=== PATIENT | female | born 1990 ===

== ENCOUNTER 2020-03-26 18:27 | Emergency (ER) | payer MEDICAID, SELFPAY ==
[2020-03-26 19:58] VITALS: BP 135/83; PULSE 60; RESP 16; TEMP 35.8; O2SAT 100; BMI 28.4
--- NOTE | 2020-03-26 21:39 | ED.ABDPAIN ---
HPI - Abdominal Pain General Chief Complaint: Abdominal Pain Stated Complaint: ABDOMINAL PAIN Time Seen by Provider: 03/26/20 21:39 Source: patient Mode of arrival: ambulatory Limitations: no limitations History of Present Illness HPI narrative: umbilical pain started yesterday MD elicited complaint: abdominal pain Onset (ago): day(s) Pain Consistency: constant Severity: moderate Radiation: RLQ Exacerbating factors: eating Associated symptoms: nausea and vomiting Related Data Previous Rx's Medication Instructions Recorded ondansetron HCl [Zofran] 4 mg PO Q8H PRN #10 tab 03/26/20 Allergies Allergy/AdvReac Type Severity Reaction Status Date / Time No Known Allergies Allergy Unverified 02/26/20 19:42 [No Known Allergies*] Review of Systems Constitutional: Reports no additional constitutional complaints Eyes: Reports no additional eye complaints Denies dizziness Cardiovascular: Reports no additional cardiovascular complaints Respiratory: Reports as per HPI Gastrointestinal: Reports no additional gastrointestinal complaints Genitourinary: Reports no additional female genitourinary complaints Musculoskeletal: Reports no additional musculoskeletal complaints Skin/Breast: Denies rash Reports system reviewed and no additional complaints, except as documented, Denies dizziness and Denies Sensory deficit (Neuro) Psychiatric: Denies anxiety Physical Exam Vital Signs: Vital Signs: Vital Signs Temp Pulse Resp BP Pulse Ox 03/26/20 21:40 62 18 131/75 100 03/26/20 19:58 96.4 F L 60 16 135/83 100 Body Mass Index 28.4 Const: General: healthy appearing Nutritional Appearance: average body habitus Orientation/consciousness: oriented to person and patient oriented x3 Limitations: no limitations HENMT: Head: Yes normal to inspection Ears: external ears normal General nose exam: Normal external nose present Mouth: Normal oral and palatal mucosa present and oropharynx normal Throat: Yes posterior oropharynx normal Eyes: General: appearance normal, both eyes and all related structures Neck: Other: supple Neck: Yes normal visual inspection Chest: Chest palpation & inspection: normal inspection of the chest Resp: Auscultation: clear to auscultation bilaterally Cardio: Jugular venous distension: no JVD Rate: regular rate Rhythm: regular rhythm Heart sounds: S1 normal heart sound present and S2 normal heart sound present GI: Other: small reducible umbilical hernia otherwise normal exam Inspection: Yes normal to inspection Palpation (GI): Soft to palpation, nontender and No hepatosplenomegaly present Auscultation: normal bowel sounds : General: Yes no CVA tenderness Back/Spine/Pelvis: Back: no CVA tenderness Skin: General skin exam: no rashes or lesions noted Neuro: General: oriented to person and patient oriented x3 Cranial nerves: Yes CN's II-XII intact bilaterally Motor exam (neuro): 5/5 motor strength present throughout Sensory Exam: No Sensory deficit (Neuro) Extrem: General: Yes normal to inspection Psych: Appearance: grossly normal Course Course Course Narrative: bloods and urine normal, repeat abdominal exam nontender, will dc on zofran for N/v MDM - Abdominal Pain MDM Narrative Medical decision making narrative: considered , appendicitis, gastroenteritis, incarcerated hernia Lab Data Result diagrams: 03/26/20 21:50 03/26/20 21:50 Labs: Lab Results 03/26/20 03/26/20 03/26/20 Range/Units 21:49 21:49 21:50 WBC 9.0 (4.8-10.8) X10*3/uL RBC 4.64 (4.20-5.50) X10*6/uL Hgb 13.4 (12.0-16.0) g/dl Hct 40.2 (37-47) % MCV 86.6 (80-98) fL MCH 28.9 (27.0-33.0) pg MCHC 33.3 (31.0-35.0) g/dl RDW 12.5 (11.0-16.0) % Plt Count 296 (160-400) X10*3/uL MPV 10.6 (9.4-12.3) fL Immature Gran % (Auto) 0.3 (0.0-0.4) % Neut % (Auto) 57.5 (45-73) % Lymph % (Auto) 33.8 (20-40) % [place] % (Auto) 5.6 (2-11) % Eos % (Auto) 2.4 (0-4) % Baso % (Auto) 0.4 (0-2) % Lymph # (Auto) 3.1 (1.2-4.9) X10*3/uL [place] # (Auto) 0.5 (0.1-1.2) X10*3/uL Eos # (Auto) 0.2 (0.0-0.4) X10*3/uL Baso # (Auto) 0.0 (0.0-0.2) X10*3/uL Abs Immat Gran (auto) 0.03 (0.00-0.03) X10*3/uL Absolute Neuts (auto) 5.2 (2.0-8.3) X10*3/uL Absolute Nucleated RBC 0.000 (0.0-0.012) X10*3/uL Nucleated RBC % (auto) 0.0 (0.0-0.2) /100WBC Sodium (135-145) mmol/L Potassium (3.3-5.1) mmol/l Chloride (96-108) mmol/L Carbon Dioxide (22-29) mmol/L Anion Gap (12-20) BUN (9-16) mg/dL Creatinine (0.5-1.4) mg/dL Estim Creat Clear Calc Estimated GFR Random Glucose (60-115) mg/dL Calcium (8.4-10.2) mg/dL Total Bilirubin (0.0-1.0) mg/dL Direct Bilirubin (0.0-0.5) mg/dL AST (5-31) U/L ALT (0-31) U/L Alkaline Phosphatase (39-117) U/L Total Protein (6.5-8.0) g/dL Albumin (3.5-5.0) g/dL Lipase 32 (8-78) U/L Urine Color YELLOW Urine Appearance CLEAR Urine pH 7.0 (5.0-8.0) Ur Specific [place] 1.015 (1.005-1.025) Urine Protein NEG (NEG-TRACE) MG/DL Urine Glucose (UA) NEG (NEG) MG/DL Urine Ketones NEG (NEG) MG/DL Urine Blood NEG (NEG) Urine Nitrite NEG (NEG) Ur Leukocyte Esterase NEG (NEG) Urine Test (NEGATIVE) 03/26/20 03/26/20 Range/Units 21:50 21:50 WBC (4.8-10.8) X10*3/uL RBC (4.20-5.50) X10*6/uL Hgb (12.0-16.0) g/dl Hct (37-47) % MCV (80-98) fL MCH (27.0-33.0) pg MCHC (31.0-35.0) g/dl RDW (11.0-16.0) % Plt Count (160-400) X10*3/uL MPV (9.4-12.3) fL Immature Gran % (Auto) (0.0-0.4) % Neut % (Auto) (45-73) % Lymph % (Auto) (20-40) % [place] % (Auto) (2-11) % Eos % (Auto) (0-4) % Baso % (Auto) (0-2) % Lymph # (Auto) (1.2-4.9) X10*3/uL [place] # (Auto) (0.1-1.2) X10*3/uL Eos # (Auto) (0.0-0.4) X10*3/uL Baso # (Auto) (0.0-0.2) X10*3/uL Abs Immat Gran (auto) (0.00-0.03) X10*3/uL Absolute Neuts (auto) (2.0-8.3) X10*3/uL Absolute Nucleated RBC (0.0-0.012) X10*3/uL Nucleated RBC % (auto) (0.0-0.2) /100WBC Sodium 140 (135-145) mmol/L Potassium 4.2 (3.3-5.1) mmol/l Chloride 107 (96-108) mmol/L Carbon Dioxide 25 (22-29) mmol/L Anion Gap 12 (12-20) BUN 13 (9-16) mg/dL Creatinine 0.70 (0.5-1.4) mg/dL Estim Creat Clear Calc 110.3 Estimated GFR > 60 Random Glucose 79 (60-115) mg/dL Calcium 10.1 (8.4-10.2) mg/dL Total Bilirubin 0.2 (0.0-1.0) mg/dL Direct Bilirubin < 0.2 (0.0-0.5) mg/dL AST 17 (5-31) U/L ALT 15 (0-31) U/L Alkaline Phosphatase 82 (39-117) U/L Total Protein 7.0 (6.5-8.0) g/dL Albumin 4.3 (3.5-5.0) g/dL Lipase (8-78) U/L Urine Color Urine Appearance Urine pH (5.0-8.0) Ur Specific [place] (1.005-1.025) Urine Protein (NEG-TRACE) MG/DL Urine Glucose (UA) (NEG) MG/DL Urine Ketones (NEG) MG/DL Urine Blood (NEG) Urine Nitrite (NEG) Ur Leukocyte Esterase (NEG) Urine Test NEGATIVE (NEGATIVE) Discharge Plan Discharge Clinical Impression: Gastroenteritis Nausea & vomiting Qualifiers: Vomiting type: unspecified Vomiting Intractability: unspecified Qualified Code(s): R11.2 - Nausea with vomiting, unspecified Patient Disposition: Home, Self-Care Instructions: Acute Nausea and Vomiting (ED), Abdominal Pain (ED) Prescriptions: New ondansetron HCl [Zofran] 4 mg tablet 4 mg PO Q8H PRN (Reason: nausea and vomiting) Qty: 10 RF: 0 Referrals: Mervat Martin MEDICAL RADIATION THERAPIST [Nurse Practitioner] - 2 days Interventions: Admission Worksheet (ED) Last Done: 03/26/20 22:03 [facility] Social History Social History Alcohol intake: never Smoking Status: Never smoker Advance Directives: No Advance Directives Information Provided: Yes
[2020-03-26 21:40] VITALS: BP 131/75; PULSE 62; RESP 18; O2SAT 100
--- NOTE | 2020-03-26 21:41 | PC.NURSE ---
pt report diffuse abd pain worse after eating. vomiting, denies diarrhea. skin pwd, respirations even unlabored. md at bedside for primary eval.
[2020-03-26] MEDS: 0.9 % Sodium Chloride 500 ML 1000 ML IV (21:56)
[2020-03-26] MEDS: ondansetron HCL 4 MG/2 ML VIAL IVPUSH (21:57)
--- NOTE | 2020-03-26 21:58 | PC.NURSE ---
IV ACCESS OBTAINED, SPECIMENS SENT TO LAB FOR PROCESSING. IVF HUNG AND INFUSING WITHOUT DIFFICULTY. MEDICATED PER MAR. AWAITING RESULTS. AWARE OF PLAN OF CARE.
[2020-03-26 22:08] LABS: MANUAL DIFF FLAG NO
[2020-03-26 22:09] LABS: Basophils Percent Auto 0.4 % (0-2); Eosinophils Absolute Auto 0.2 X10*3/uL (0.0-0.4); Eosinophils Percent Auto 2.4 % (0-4); Hematocrit 40.2 % (37-47); Hemoglobin 13.4 g/dl (12.0-16.0); Imm Gran Abs Auto 0.03 X10*3/uL (0.00-0.03); Imm Gran Pct Auto 0.3 % (0.0-0.4); Lymphocytes Absolute Auto 3.1 X10*3/uL (1.2-4.9); Lymphocytes Percent Auto 33.8 % (20-40); Mean Corpuscular HGB Conc 33.3 g/dl (31.0-35.0); Mean Corpuscular Hemoglobin 28.9 pg (27.0-33.0); Mean Corpuscular Volume 86.6 fL (80-98); Mean Platelet Volume 10.6 fL (9.4-12.3); Monocytes Absolute Auto 0.5 X10*3/uL (0.1-1.2); Monocytes Percent Auto 5.6 % (2-11); Neutrophils Absolute Auto 5.2 X10*3/uL (2.0-8.3); Neutrophils Percent Auto 57.5 % (45-73); Platelet Count 296 X10*3/uL (160-400); Red Blood Count 4.64 X10*6/uL (4.20-5.50); Red Cell Distribution Width 12.5 % (11.0-16.0)
[2020-03-26 22:24] LABS: Glucose Urine UA NEG (NEG); Leukocyte Esterase Urine NEG (NEG); Nitrite Urine NEG (NEG); Specific Gravity - Urine 1.015 (1.005-1.025); Urine Blood NEG (NEG); Urine Ketones NEG (NEG); Urine Protein NEG (NEG-TRACE)
[2020-03-26 22:31] LABS: Appearance Urine CLEAR; Color Urine YELLOW
[2020-03-26 22:34] LABS: UPreg QC Valid YES; Urine Pregnancy NEGATIVE (NEGATIVE)
[2020-03-26 22:37] LABS: Lipase 32 U/L (8-78)
[2020-03-26 22:38] LABS: Alanine Aminotransferase 15 U/L (0-31); Albumin Level 4.3 g/dL (3.5-5.0); Alkaline Phosphatase 82 U/L (39-117); Anion Gap 12 (12-20); Aspartate Amino Transferase 17 U/L (5-31); Bilirubin Direct < 0.2 mg/dL (0.0-0.5); Bilirubin Total 0.2 mg/dL (0.0-1.0); Blood Urea Nitrogen 13 mg/dL (9-16); Calcium 10.1 mg/dL (8.4-10.2); Carbon Dioxide 25 mmol/L (22-29); Chloride 107 mmol/L (96-108); Creatinine Clr Calc Pharmacy 110.3; Estimated Glomerular Filt Rate > 60; Glucose Random 79 mg/dL (60-115); Potassium 4.2 mmol/l (3.3-5.1); Sodium 140 mmol/L (135-145)
== END 2020-03-27 00:29 | disposition home or self-care (01) ==
PROVIDERS: Emergency Provider Emergency Medicine
DX: K52.9 Noninfective gastroenteritis and colitis, unspecified (principal); R11.2 Nausea with vomiting, unspecified; Z79.899 Other long term (current) drug therapy
CPT/HCPCS: 36415; 80048; 80076; 81003; 81025; 83690; 85025; 96361; 96374; 99284; J2405

== ENCOUNTER 2020-03-28 12:30 | Emergency (ER) | payer MEDICAID, SELFPAY ==
[2020-03-28 12:52] VITALS: BP 114/68; PULSE 76; RESP 16; TEMP 37.1; O2SAT 100; BMI 28.3
[2020-03-28 12:54] VITALS: BP 114/68; PULSE 70; RESP 16; TEMP 37.1; O2SAT 100
--- NOTE | 2020-03-28 13:10 | ED.ABDPAIN ---
HPI - Abdominal Pain General Chief Complaint: Abdominal Pain Stated Complaint: abd pain Time Seen by Provider: 03/28/20 12:57 Source: patient Mode of arrival: ambulatory Limitations: no limitations History of Present Illness HPI narrative: 30 yo female with past medical history of anxiety, asthma here here with abdominal pain x 4 days. This morning one episode of vomiting this morning. Seen here 2 days ago. Had labs, UA-unremarkable. Diagnosed 2 days ago with gastroenteritis and sent home. Continued pain since. No diarrhea, urinary symptoms, fevers/chills, vaginal discharge. MD elicited complaint: abdominal pain Onset (ago): day(s) Pain Consistency: constant Location: LUQ, RUQ and LLQ Severity: moderate Quality: stabbing Associated symptoms: nausea and vomiting Related Data Previous Rx's Medication Instructions Recorded ondansetron HCl [Zofran] 4 mg PO Q8H PRN #10 tab 03/26/20 omeprazole 40 mg PO DAILY #20 cap 03/28/20 sucralfate [Carafate] 1 g PO .ACHS #20 tab 03/28/20 Allergies Allergy/AdvReac Type Severity Reaction Status Date / Time Iodinated Contrast Media Allergy Swelling Verified 03/28/20 13:11 Review of Systems Review of Systems Yes all other systems are reviewed and are negative Constitutional: Reports no additional constitutional complaints, Denies body ache(s), Denies chills, Denies fever(s), Denies headache(s) and Denies weakness Eyes: Reports no additional eye complaints and Denies change in vision Reports system reviewed and no additional complaints, except as documented, Denies dizziness, Denies headache(s), Denies nasal congestion, Denies nasal discharge and Denies neck pain Cardiovascular: Reports no additional cardiovascular complaints, Denies chest pain, Denies leg edema and Denies dyspnea Respiratory: Reports no additional respiratory complaints, Denies cough and Denies dyspnea Gastrointestinal: Reports no additional gastrointestinal complaints, Reports abdominal pain, Denies diarrhea, Reports nausea and Reports vomiting Genitourinary: Reports no additional female genitourinary complaints and Denies urinary incontinence Musculoskeletal: Reports no additional musculoskeletal complaints, Denies back pain, Denies arthralgias, Denies joint swelling, Denies neck pain, Denies numbness and Denies tingling Skin/Breast: Reports system reviewed and no additional complaints, except as docu and Denies rash Denies Abnormal speech present, Denies dizziness, Denies headache(s), Denies numbness, Denies tingling and Denies weakness Physical Exam Vital Signs: Vital Signs: Vital Signs Temp Pulse Resp BP Pulse Ox 03/28/20 15:34 98.0 F 63 18 113/74 100 03/28/20 12:54 98.7 F 70 16 114/68 100 03/28/20 12:52 98.7 F 76 16 114/68 100 Body Mass Index 28.3 Const: General: cooperative, healthy appearing, comfortable and no acute distress Orientation/consciousness: patient oriented x3 Limitations: no limitations HENMT: Head: Yes normal to inspection Ears: hearing grossly normal bilaterally General nose exam: Normal external nose present Face and sinus: Yes normal facial exam Mouth: Normal oral and palatal mucosa present Throat: Yes posterior oropharynx normal Eyes: General: appearance normal, both eyes and all related structures Pupils: Equal, round and reactive pupils present Neck: Neck: Yes normal visual inspection Chest: Chest palpation & inspection: normal inspection of the chest Resp: Effort & Inspection: normal respiratory effort Auscultation: clear to auscultation bilaterally Cardio: Rate: regular rate Rhythm: regular rhythm Peripheral pulses: Peripheral pulses 2+ throughout GI: Inspection: Yes normal to inspection Palpation (GI): Soft to palpation and Tenderness to palpation present (GI) in the LLQ, in the LUQ and in the RUQ Auscultation: normal bowel sounds Back/Spine/Pelvis: Thoracic/Lumbar Spine: thoracic and lumbar spine normal to inspection Skin: General skin exam: no rashes or lesions noted Neuro: General: patient oriented x3, no focal motor deficits and normal sensation to monofilament Cranial nerves: Yes Equal, round and reactive pupils present Cognition (Neuro): normal cognition Speech: No Abnormal speech present Gait exam (Neuro): Normal gait present Motor exam (neuro): 5/5 motor strength present throughout Extrem: General: Yes normal to inspection Course Course Course Narrative: 30-year-old female here with abdominal pain and 1 episode of vomiting. Seen here 2 days ago and has return for continued pain. On exam she has tenderness over the right upper, left upper and left lower abdomen. Will need labs, UA, urine and CT abdomen and pelvis. 1515- labs unremarkable, UA negative. Urine negative. CT shows mild constipation otherwise unremarkable. The patient received 1 dose of analgesia, antiemetic, ppi and GI cocktail and is feeling much improved. Tolerating p.o.. Maybe viral versus gastritis. reviewed worrisome signs and symptoms and when to return to the emergency department. Comfortable discharge home. MDM - Abdominal Pain MDM Narrative Medical decision making narrative: Considered gastroenteritis, gastritis, cholecystitis, pancreatitis, diverticulitis, appendicitis Overall concern for cholecystitis, pancreatitis, diverticulitis, appendicitis with unremarkable CT. Patient has no focal abdominal pain and is diffusely tender more than 2 quadrants. She has improved after receiving PPI and GI cocktail making this more likely gastritis or gastroenteritis. Medical Records Attestation: I reviewed the patient's medical records. Lab Data Attestation: I reviewed the patient's lab results. Result diagrams: 03/28/20 13:20 03/28/20 13:20 Labs: Lab Results 03/28/20 03/28/20 03/28/20 Range/Units 13:20 13:20 13:20 WBC 7.4 (4.8-10.8) X10*3/uL RBC 4.79 (4.20-5.50) X10*6/uL Hgb 13.8 (12.0-16.0) g/dl Hct 41.8 (37-47) % MCV 87.3 (80-98) fL MCH 28.8 (27.0-33.0) pg MCHC 33.0 (31.0-35.0) g/dl RDW 12.4 (11.0-16.0) % Plt Count 279 (160-400) X10*3/uL MPV 10.2 (9.4-12.3) fL Immature Gran % (Auto) 0.1 (0.0-0.4) % Neut % (Auto) 69.8 (45-73) % Lymph % (Auto) 21.6 (20-40) % [place] % (Auto) 5.5 (2-11) % Eos % (Auto) 2.6 (0-4) % Baso % (Auto) 0.4 (0-2) % Lymph # (Auto) 1.6 (1.2-4.9) X10*3/uL [place] # (Auto) 0.4 (0.1-1.2) X10*3/uL Eos # (Auto) 0.2 (0.0-0.4) X10*3/uL Baso # (Auto) 0.0 (0.0-0.2) X10*3/uL Abs Immat Gran (auto) 0.01 (0.00-0.03) X10*3/uL Absolute Neuts (auto) 5.2 (2.0-8.3) X10*3/uL Absolute Nucleated RBC 0.000 (0.0-0.012) X10*3/uL Nucleated RBC % (auto) 0.0 (0.0-0.2) /100WBC Hold Blue Top SEE NOTE Sodium (135-145) mmol/L Potassium (3.3-5.1) mmol/l Chloride (96-108) mmol/L Carbon Dioxide (22-29) mmol/L Anion Gap (12-20) BUN (9-16) mg/dL Creatinine (0.5-1.4) mg/dL Estim Creat Clear Calc Estimated GFR Random Glucose (60-115) mg/dL Calcium (8.4-10.2) mg/dL Magnesium (1.6-2.6) mg/dL Total Bilirubin (0.0-1.0) mg/dL Direct Bilirubin (0.0-0.5) mg/dL AST (5-31) U/L ALT (0-31) U/L Alkaline Phosphatase (39-117) U/L Total Protein (6.5-8.0) g/dL Albumin (3.5-5.0) g/dL Urine Color YELLOW Urine Appearance CLEAR Urine pH 6.0 (5.0-8.0) Ur Specific [place] 1.025 (1.005-1.025) Urine Protein NEG (NEG-TRACE) MG/DL Urine Glucose (UA) NEG (NEG) MG/DL Urine Ketones 5 (NEG) MG/DL Urine Blood NEG (NEG) Urine Nitrite NEG (NEG) Ur Leukocyte Esterase NEG (NEG) Urine Test NEGATIVE (NEGATIVE) 03/28/20 Range/Units 13:20 WBC (4.8-10.8) X10*3/uL RBC (4.20-5.50) X10*6/uL Hgb (12.0-16.0) g/dl Hct (37-47) % MCV (80-98) fL MCH (27.0-33.0) pg MCHC (31.0-35.0) g/dl RDW (11.0-16.0) % Plt Count (160-400) X10*3/uL MPV (9.4-12.3) fL Immature Gran % (Auto) (0.0-0.4) % Neut % (Auto) (45-73) % Lymph % (Auto) (20-40) % [place] % (Auto) (2-11) % Eos % (Auto) (0-4) % Baso % (Auto) (0-2) % Lymph # (Auto) (1.2-4.9) X10*3/uL [place] # (Auto) (0.1-1.2) X10*3/uL Eos # (Auto) (0.0-0.4) X10*3/uL Baso # (Auto) (0.0-0.2) X10*3/uL Abs Immat Gran (auto) (0.00-0.03) X10*3/uL Absolute Neuts (auto) (2.0-8.3) X10*3/uL Absolute Nucleated RBC (0.0-0.012) X10*3/uL Nucleated RBC % (auto) (0.0-0.2) /100WBC Hold Blue Top Sodium 140 (135-145) mmol/L Potassium 4.0 (3.3-5.1) mmol/l Chloride 105 (96-108) mmol/L Carbon Dioxide 28 (22-29) mmol/L Anion Gap 11 L (12-20) BUN 9 (9-16) mg/dL Creatinine 0.73 (0.5-1.4) mg/dL Estim Creat Clear Calc 105.6 Estimated GFR > 60 Random Glucose 61 (60-115) mg/dL Calcium 9.2 (8.4-10.2) mg/dL Magnesium 1.9 (1.6-2.6) mg/dL Total Bilirubin 0.3 (0.0-1.0) mg/dL Direct Bilirubin 0.2 (0.0-0.5) mg/dL AST 16 (5-31) U/L ALT 16 (0-31) U/L Alkaline Phosphatase 82 (39-117) U/L Total Protein 6.9 (6.5-8.0) g/dL Albumin 4.4 (3.5-5.0) g/dL Urine Color Urine Appearance Urine pH (5.0-8.0) Ur Specific [place] (1.005-1.025) Urine Protein (NEG-TRACE) MG/DL Urine Glucose (UA) (NEG) MG/DL Urine Ketones (NEG) MG/DL Urine Blood (NEG) Urine Nitrite (NEG) Ur Leukocyte Esterase (NEG) Urine Test (NEGATIVE) Imaging Data CT scan - abdomen: Attestation: I personally reviewed and interpreted this imaging study as follows: My impression: Mild constipation otherwise unremarkable Radiologist's impression: EXAMINATION: CT ABDOMEN AND PELVIS WITHOUT CONTRAST CLINICAL INFORMATION: 30-year-old female with abdominal pain and vomiting. COMPARISON: None TECHNIQUE: Multidetector volumetric imaging was performed from the superior aspect of the liver through the pubic symphysis. Sagittal and coronal reformatted images were obtained on the technologist's workstation. Evaluation of solid organs is suboptimal given lack of IV contrast. This CT examination was performed using dose optimization techniques as appropriate, variously including the following: *Automated exposure control *Adjustment of mA and/or kV according to patient size (this includes techniques or standardized protocols for targeted exams where dose is matched to indication/reason for exam; i.e. extremities or head) *Use of iterative reconstruction technique DLP: 553 mGy-cm FINDINGS: Visualized lung bases are well aerated. There is minimal dependent atelectasis. The liver demonstrates normal size, contour and attenuation. There are a few coarse calcifications within the liver. The gallbladder is normal in appearance. The pancreas, spleen and adrenal glands are unremarkable. Small posterior splenule. Symmetrically sized kidneys. No renal calculi or hydronephrosis bilaterally. The stomach is decompressed. Normal caliber loops of small bowel. There is a mild stool burden throughout the entirety of the colon. Normal appendix. Tiny fat-containing umbilical hernia. Nonaneurysmal abdominal aorta. The bladder is relatively decompressed but grossly unremarkable. Unremarkable CT appearance of the uterus. 2.5 cm right adnexal cyst. No inguinal lymphadenopathy. No gross free pelvic fluid. No acute osseous abnormality. IMPRESSION: -No CT evidence for acute abnormality within the abdomen or pelvis. -There is a mild stool burden throughout the colon possibly represent mild constipation. -2.5 cm right adnexal cyst. Discharge Plan Discharge Clinical Impression: Gastritis Qualifiers: Gastritis type: unspecified gastritis Chronicity: acute Gastritis bleeding: without bleeding Qualified Code(s): K29.00 - Acute gastritis without bleeding Patient Disposition: Home, Self-Care Instructions: Gastritis (ED) Additional Instructions: very bland diet Advance diet as tolerated Prescriptions: New omeprazole 40 mg capsule,delayed release(DR/EC) 40 mg PO DAILY Qty: 20 RF: 0 sucralfate [Carafate] 1 gram tablet 1 g PO .ACHS Qty: 20 RF: 0 No Action ondansetron HCl [Zofran] 4 mg tablet 4 mg PO Q8H PRN (Reason: nausea and vomiting) Qty: 10 RF: 0 Referrals: [facility] [Primary Care Provider] - 2 days Interventions: ED Discharge Assessment Last Done: 03/28/20 17:01 Discharge Date/Time: 03/28/20 17:02 [facility] Past Medical History Attestation statement: The following information was validated with the patient. Source: nursing notes reviewed Medical History Anxiety Asthma Migraine Panic attack Social History Social History Alcohol intake: never Smoking Status: Never smoker Use of substances other than those prescribed or required for medical reasons: No Advance Directives: No Advance Directives Information Provided: No
[2020-03-28 13:27] LABS: Basophils Percent Auto 0.4 % (0-2); Eosinophils Absolute Auto 0.2 X10*3/uL (0.0-0.4); Eosinophils Percent Auto 2.6 % (0-4); Hematocrit 41.8 % (37-47); Hemoglobin 13.8 g/dl (12.0-16.0); Imm Gran Abs Auto 0.01 X10*3/uL (0.00-0.03); Imm Gran Pct Auto 0.1 % (0.0-0.4); Lymphocytes Absolute Auto 1.6 X10*3/uL (1.2-4.9); Lymphocytes Percent Auto 21.6 % (20-40); Mean Corpuscular Hemoglobin 28.8 pg (27.0-33.0); Mean Corpuscular Volume 87.3 fL (80-98); Mean Platelet Volume 10.2 fL (9.4-12.3); Monocytes Absolute Auto 0.4 X10*3/uL (0.1-1.2); Monocytes Percent Auto 5.5 % (2-11); Neutrophils Absolute Auto 5.2 X10*3/uL (2.0-8.3); Neutrophils Percent Auto 69.8 % (45-73); Platelet Count 279 X10*3/uL (160-400); Red Blood Count 4.79 X10*6/uL (4.20-5.50); Red Cell Distribution Width 12.4 % (11.0-16.0); White Blood Count 7.4 X10*3/uL (4.8-10.8)
[2020-03-28 13:28] LABS: MANUAL DIFF FLAG NO
[2020-03-28 13:35] LABS: Glucose Urine UA NEG (NEG); Leukocyte Esterase Urine NEG (NEG); Nitrite Urine NEG (NEG); Specific Gravity - Urine 1.025 (1.005-1.025); Urine Blood NEG (NEG); Urine Ketones 5 MG/DL (NEG); Urine Protein NEG (NEG-TRACE)
[2020-03-28 13:37] LABS: Appearance Urine CLEAR; Color Urine YELLOW; UPreg QC Valid YES; Urine Pregnancy NEGATIVE (NEGATIVE)
[2020-03-28 14:05] LABS: Alanine Aminotransferase 16 U/L (0-31); Albumin Level 4.4 g/dL (3.5-5.0); Alkaline Phosphatase 82 U/L (39-117); Aspartate Amino Transferase 16 U/L (5-31); Bilirubin Direct 0.2 mg/dL (0.0-0.5); Bilirubin Total 0.3 mg/dL (0.0-1.0); Blood Urea Nitrogen 9 mg/dL (9-16); Calcium 9.2 mg/dL (8.4-10.2); Creatinine Clr Calc Pharmacy 105.6; Estimated Glomerular Filt Rate > 60; Glucose Random 61 mg/dL (60-115); Magnesium 1.9 mg/dL (1.6-2.6); Total Protein 6.9 g/dL (6.5-8.0)
[2020-03-28 14:18] LABS: Anion Gap 11 (12-20); Carbon Dioxide 28 mmol/L (22-29); Chloride 105 mmol/L (96-108); Sodium 140 mmol/L (135-145)
[2020-03-28 15:34] VITALS: BP 113/74; PULSE 63; RESP 18; TEMP 36.7; O2SAT 100
[2020-03-28] MEDS: Lidocaine HCl Viscous 2 % 15 ML SOLUTION MUCOUS MEM (15:36)
[2020-03-28] MEDS: Famotidine/PF 20 MG/2 ML VIAL IVPUSH (15:36)
[2020-03-28] MEDS: Magnesium Hydrox/Alum Hydrox 30 ML ORAL.SUSP PO (15:36)
== END 2020-03-28 17:02 | disposition home or self-care (01) ==
PROVIDERS: Nurse Practitioner Family; Emergency Provider Emergency Medicine
DX: K29.70 Gastritis, unspecified, without bleeding (principal)
CPT/HCPCS: 36415; 74176; 80048; 80076; 81003; 81025; 83735; 85025; 96374; 99284

== ENCOUNTER 2020-09-28 13:17 | Emergency (ER) | payer MEDICAID, SELFPAY ==
--- NOTE | ~2020-09-28 | XR_ITS ---
EXAMINATION: XR CHEST CLINICAL INFORMATION: Chest pain. COMPARISON: None TECHNIQUE: Frontal view of the chest was obtained. FINDINGS: The lungs are clear. The cardiomediastinal silhouette is normal in size. There is no pleural effusion or pneumothorax. No acute osseous abnormality. XR/XR chest 1V IMPRESSION: No acute cardiopulmonary findings.
[2020-09-28 13:44] VITALS: BP 133/88; PULSE 82; RESP 18; TEMP 36.7; O2SAT 100; BMI 26.6
--- NOTE | 2020-09-28 13:45 | ECG_ITS ---
Test Reason : ARRHYTHMIA Blood Pressure : / mmHG Vent. Rate : 067 BPM Atrial Rate : 067 BPM P-R Int : 118 ms QRS Dur : 088 ms QT Int : 408 ms P-R-T Axes : 074 045 059 degrees QTc Int : 431 ms Normal sinus rhythm Normal ECG No previous ECGs available Referred By: Mickie Macias Electronically Signed By:Shahzad Coleman
--- NOTE | 2020-09-28 13:46 | ED.GENADULT ---
HPI - General Adult General Chief complaint: Arrhythmia/Palpitations <CHACORTA Patel - Last Filed: 09/28/20 13:49> Stated complaint: PALPATIONS PAIN DOWN R ARM <CHACORTA Patel - Last Filed: 09/28/20 13:49> Time Seen by Provider: 09/28/20 13:44 <CHACORTA Patel - Last Filed: 09/28/20 13:49> Source: patient <Kanchan Barrow DO - Last Filed: 09/28/20 16:20> Mode of arrival: ambulatory <Kanchan Barrow DO - Last Filed: 09/28/20 16:20> Limitations: no limitations <Kanchan Barrow DO - Last Filed: 09/28/20 16:20> History of Present Illness HPI narrative: palpitations 2 weeks on and off no exacerbating symptoms, no associated symptoms at rest or exertion, developed reproduceable L CWP and arm pain this AM at 8am worse with mvoements, no OCPs <Kanchan Barrow DO - Last Filed: 09/28/20 16:20> Onset (ago): week(s) (2) <Kanchan Barrow DO - Last Filed: 09/28/20 16:20> Location: chest <Kanchan Barrow DO - Last Filed: 09/28/20 16:20> Severity: moderate <Kanchan Barrow DO - Last Filed: 09/28/20 16:20> Quality: aching <Kanchan aBrrow DO - Last Filed: 09/28/20 16:20> Pain Consistency: constant <Kanchan Barrow DO - Last Filed: 09/28/20 16:20> Relieving factors: none <Kanchan Barrow DO - Last Filed: 09/28/20 16:20> Exacerbating factors: movement <Kanchan Barrow DO - Last Filed: 09/28/20 16:20> Associated symptoms: other (palpitations) <Kanchan Barrow DO - Last Filed: 09/28/20 16:20> Treatments prior to arrival: none <Kanchan Barrow DO - Last Filed: 09/28/20 16:20> Related Data Home medications: Previous Rx's Medication Instructions Recorded ondansetron HCl [Zofran] 4 mg PO Q8H PRN #10 tab 03/26/20 omeprazole 40 mg PO DAILY #20 cap 03/28/20 sucralfate [Carafate] 1 g PO .ACHS #20 tab 03/28/20 cyclobenzaprine 10 mg PO TID PRN #14 tab 09/28/20 <CHACORTA Patel - Last Filed: 09/28/20 13:49> Allergies/adverse reactions: Allergies Allergy/AdvReac Type Severity Reaction Status Date / Time Iodinated Contrast Media Allergy Swelling Verified 03/28/20 13:11 <CHACORTA Patel - Last Filed: 09/28/20 13:49> Review of Systems Review of Systems: Constitutional : No Weight loss, No Fever, No Chills ENT/Mouth : No sore throat, No Rhinorrhea Eyes: No Eye Pain, No Swelling Cardiovascular : pos Chest Pain, no SOB, no Dyspnea on Exertion, No Orthopnea, No Edema, No Palpitations Respiratory : No Cough, No Sputum Gastrointestinal : no Nausea, No Vomiting, No Diarrhea, No abdominal Pain, No Hematochezia, No Melena Genitourinary : No Dysuria, No Urinary Frequency Musculoskeletal : No joint pain, No Myalgias, No Joint Swelling Skin : No Skin Lesions, No rash Neuro : No Weakness, No Numbness, No Dizziness, No Headache Psych : No Anxiety/Panic, No Depression Heme/Lymph: No Bruising, No Lymphadenopathy Endocrine : No Polyuria, No Polydipsia All other systems reviewed and are negative <Kanchan Barrow DO - Last Filed: 09/28/20 16:20> [facility] Past Medical History Medical History: Medical History Anxiety Asthma Migraine Panic attack <CHACORTA Patel - Last Filed: 09/28/20 13:49> Social History Social History: Social History Alcohol intake: never Smoking Status: Never smoker Advance Directives: No Advance Directives Information Provided: No <CHACORTA Patel Last Filed: 09/28/20 13:49> Physical Exam Vital Signs: Vital Signs: Last Vital Signs Temp 98.1 F 09/28/20 13:44 Pulse 82 04/20/21 13:44 Resp 18 09/28/20 13:44 BP 133/88 09/28/20 13:44 Pulse Ox 100 09/28/20 13:44 Body Mass Index 26.6 <CHACORTA Patel - Last Filed: 09/28/20 13:49> Vital Signs: Last Vital Signs Temp 98.1 F 09/28/20 13:44 Pulse 82 09/28/20 13:44 Resp 18 09/28/20 13:44 BP 133/88 09/28/20 13:44 Pulse Ox 100 09/28/20 13:44 Body Mass Index 26.6 <Kanchan Barrow DO - Last Filed: 09/28/20 16:20> Appearance: Alert. Oriented X3. No acute distress. Eyes: Pupils equal, round and reactive to light. ENT: Pharynx normal. Neck: Normal inspection. Neck supple. CVS: Normal heart rate and rhythm. Pulses normal. Chest: ttp along L lateral wall of chest and LUE distal NV intact Respiratory: No respiratory distress. Breath sounds normal. Abdomen: Soft and nontender. Skin: Skin warm and dry. Normal skin color. Normal skin turgor. Extremities: No lower extremity edema. No calf ttp Neuro: Oriented X 3. No motor deficit. No sensory deficit. <Kanchan Barrow DO - Last Filed: 09/28/20 16:20> Course Course Course Narrative: Rapid medical exam: 30 y/o female with history of anxiety, panic attacks, anemia who presents to the ED with 1 week of palpitations that occur mostly at night when she is laying down. Episodes lasting up to 4 hours. SOB and chest pain when it occurs. Feels different than panic attacks. Tried hydroxyzine and meditation with no improvement. Also reports 3 hours of left sided neck and arm pain. No trauma. VS are normal - no palpitations at this time. Will get EKG, CXR and basic lab workup. <CHACORTA Patel - Last Filed: 09/28/20 13:49> Medical Decision Making MDM Narrative Medical decision making narrative: 30 yo female with anxiety here with CWP since this AM no associated symptoms no ACS risk factors, PERC negative, already had normal CXR, negative troponin, nonischemic EKG seems MSK in nature - start on flexeril and refer to PCP <Kanchan Barrow DO - Last Filed: 09/28/20 16:20> Lab Data Result diagrams: : 09/28/20 14:32 09/28/20 14:32 <CHACORTA Patel - Last Filed: 09/28/20 13:49> Labs: Lab Results 09/28/20 09/28/20 09/28/20 Range/Units 14:32 14:32 14:32 WBC 7.2 (4.8-10.8) X10*3/uL RBC 4.98 (4.20-5.50) X10*6/uL Hgb 13.8 (12.0-16.0) g/dl Hct 42.4 (37-47) % MCV 85.1 (80-98) fL MCH 27.7 (27.0-33.0) pg MCHC 32.5 (31.0-35.0) g/dl RDW 13.0 (11.0-16.0) % Plt Count 305 (160-400) X10*3/uL MPV 10.4 (9.4-12.3) fL Immature Gran % (Auto) 0.3 (0.0-0.4) % Neut % (Auto) 61.2 (45-73) % Lymph % (Auto) 28.3 (20-40) % [place] % (Auto) 7.0 (2-11) % Eos % (Auto) 2.8 (0-4) % Baso % (Auto) 0.4 (0-2) % Lymph # (Auto) 2.1 (1.2-4.9) X10*3/uL [place] # (Auto) 0.5 (0.1-1.2) X10*3/uL Eos # (Auto) 0.2 (0.0-0.4) X10*3/uL Baso # (Auto) 0.0 (0.0-0.2) X10*3/uL Abs Immat Gran (auto) 0.02 (0.00-0.03) X10*3/uL Absolute Neuts (auto) 4.4 (2.0-8.3) X10*3/uL Absolute Nucleated RBC 0.000 (0.0-0.012) X10*3/uL Nucleated RBC % (auto) 0.0 (0.0-0.2) /100WBC Hold Blue Top SEE NOTE Sodium 140 (135-145) mmol/L Potassium 4.2 (3.3-5.1) mmol/L Chloride 105 (96-108) mmol/L Carbon Dioxide 26 (22-29) mmol/L Anion Gap 13 (12-20) BUN 9 (9-16) mg/dL Creatinine 0.70 (0.5-1.4) mg/dL Estim Creat Clear Calc 115.1 Estimated GFR > 60 Random Glucose 90 D (60-115) mg/dL Calcium 9.1 (8.4-10.2) mg/dL Magnesium (1.6-2.6) mg/dL Total Bilirubin 0.5 (0.0-1.0) mg/dL Direct Bilirubin < 0.2 (0.0-0.5) mg/dL AST 18 (5-31) U/L ALT 19 (0-31) U/L Alkaline Phosphatase 89 (39-117) U/L Troponin I High Sens (<3.5-17.0) ng/L Total Protein 7.4 (6.5-8.0) g/dL Albumin 4.4 (3.5-5.0) g/dL TSH (0.32-4.0) uIU/mL 09/28/20 09/28/20 Range/Units 14:32 14:32 WBC (4.8-10.8) X10*3/uL RBC (4.20-5.50) X10*6/uL Hgb (12.0-16.0) g/dl Hct (37-47) % MCV (80-98) fL MCH (27.0-33.0) pg MCHC (31.0-35.0) g/dl RDW (11.0-16.0) % Plt Count (160-400) X10*3/uL MPV (9.4-12.3) fL Immature Gran % (Auto) (0.0-0.4) % Neut % (Auto) (45-73) % Lymph % (Auto) (20-40) % [place] % (Auto) (2-11) % Eos % (Auto) (0-4) % Baso % (Auto) (0-2) % Lymph # (Auto) (1.2-4.9) X10*3/uL [place] # (Auto) (0.1-1.2) X10*3/uL Eos # (Auto) (0.0-0.4) X10*3/uL Baso # (Auto) (0.0-0.2) X10*3/uL Abs Immat Gran (auto) (0.00-0.03) X10*3/uL Absolute Neuts (auto) (2.0-8.3) X10*3/uL Absolute Nucleated RBC (0.0-0.012) X10*3/uL Nucleated RBC % (auto) (0.0-0.2) /100WBC Hold Blue Top Sodium (135-145) mmol/L Potassium (3.3-5.1) mmol/L Chloride (96-108) mmol/L Carbon Dioxide (22-29) mmol/L Anion Gap (12-20) BUN (9-16) mg/dL Creatinine (0.5-1.4) mg/dL Estim Creat Clear Calc Estimated GFR Random Glucose (60-115) mg/dL Calcium (8.4-10.2) mg/dL Magnesium 2.0 (1.6-2.6) mg/dL Total Bilirubin (0.0-1.0) mg/dL Direct Bilirubin (0.0-0.5) mg/dL AST (5-31) U/L ALT (0-31) U/L Alkaline Phosphatase (39-117) U/L Troponin I High Sens < 3.5 (<3.5-17.0) ng/L Total Protein (6.5-8.0) g/dL Albumin (3.5-5.0) g/dL TSH 1.29 (0.32-4.0) uIU/mL <CHACORTA Patel - Last Filed: 09/28/20 13:49> Lab Results 09/28/20 09/28/20 09/28/20 Range/Units 14:32 14:32 14:32 WBC 7.2 (4.8-10.8) X10*3/uL RBC 4.98 (4.20-5.50) X10*6/uL Hgb 13.8 (12.0-16.0) g/dl Hct 42.4 (37-47) % MCV 85.1 (80-98) fL MCH 27.7 (27.0-33.0) pg MCHC 32.5 (31.0-35.0) g/dl RDW 13.0 (11.0-16.0) % Plt Count 305 (160-400) X10*3/uL MPV 10.4 (9.4-12.3) fL Immature Gran % (Auto) 0.3 (0.0-0.4) % Neut % (Auto) 61.2 (45-73) % Lymph % (Auto) 28.3 (20-40) % [place] % (Auto) 7.0 (2-11) % Eos % (Auto) 2.8 (0-4) % Baso % (Auto) 0.4 (0-2) % Lymph # (Auto) 2.1 (1.2-4.9) X10*3/uL [place] # (Auto) 0.5 (0.1-1.2) X10*3/uL Eos # (Auto) 0.2 (0.0-0.4) X10*3/uL Baso # (Auto) 0.0 (0.0-0.2) X10*3/uL Abs Immat Gran (auto) 0.02 (0.00-0.03) X10*3/uL Absolute Neuts (auto) 4.4 (2.0-8.3) X10*3/uL Absolute Nucleated RBC 0.000 (0.0-0.012) X10*3/uL Nucleated RBC % (auto) 0.0 (0.0-0.2) /100WBC Hold Blue Top SEE NOTE Sodium 140 (135-145) mmol/L Potassium 4.2 (3.3-5.1) mmol/L Chloride 105 (96-108) mmol/L Carbon Dioxide 26 (22-29) mmol/L Anion Gap 13 (12-20) BUN 9 (9-16) mg/dL Creatinine 0.70 (0.5-1.4) mg/dL Estim Creat Clear Calc 115.1 Estimated GFR > 60 Random Glucose 90 D (60-115) mg/dL Calcium 9.1 (8.4-10.2) mg/dL Magnesium (1.6-2.6) mg/dL Total Bilirubin 0.5 (0.0-1.0) mg/dL Direct Bilirubin < 0.2 (0.0-0.5) mg/dL AST 18 (5-31) U/L ALT 19 (0-31) U/L Alkaline Phosphatase 89 (39-117) U/L Troponin I High Sens (<3.5-17.0) ng/L Total Protein 7.4 (6.5-8.0) g/dL Albumin 4.4 (3.5-5.0) g/dL TSH (0.32-4.0) uIU/mL 09/28/20 09/28/20 Range/Units 14:32 14:32 WBC (4.8-10.8) X10*3/uL RBC (4.20-5.50) X10*6/uL Hgb (12.0-16.0) g/dl Hct (37-47) % MCV (80-98) fL MCH (27.0-33.0) pg MCHC (31.0-35.0) g/dl RDW (11.0-16.0) % Plt Count (160-400) X10*3/uL MPV (9.4-12.3) fL Immature Gran % (Auto) (0.0-0.4) % Neut % (Auto) (45-73) % Lymph % (Auto) (20-40) % [place] % (Auto) (2-11) % Eos % (Auto) (0-4) % Baso % (Auto) (0-2) % Lymph # (Auto) (1.2-4.9) X10*3/uL [place] # (Auto) (0.1-1.2) X10*3/uL Eos # (Auto) (0.0-0.4) X10*3/uL Baso # (Auto) (0.0-0.2) X10*3/uL Abs Immat Gran (auto) (0.00-0.03) X10*3/uL Absolute Neuts (auto) (2.0-8.3) X10*3/uL Absolute Nucleated RBC (0.0-0.012) X10*3/uL Nucleated RBC % (auto) (0.0-0.2) /100WBC Hold Blue Top Sodium (135-145) mmol/L Potassium (3.3-5.1) mmol/L Chloride (96-108) mmol/L Carbon Dioxide (22-29) mmol/L Anion Gap (12-20) BUN (9-16) mg/dL Creatinine (0.5-1.4) mg/dL Estim Creat Clear Calc Estimated GFR Random Glucose (60-115) mg/dL Calcium (8.4-10.2) mg/dL Magnesium 2.0 (1.6-2.6) mg/dL Total Bilirubin (0.0-1.0) mg/dL Direct Bilirubin (0.0-0.5) mg/dL AST (5-31) U/L ALT (0-31) U/L Alkaline Phosphatase (39-117) U/L Troponin I High Sens < 3.5 (<3.5-17.0) ng/L Total Protein (6.5-8.0) g/dL Albumin (3.5-5.0) g/dL TSH 1.29 (0.32-4.0) uIU/mL <Kanchan Barrow DO - Last Filed: 09/28/20 16:20> ECG Data Interpretation: Rate: 67 Rhythm: NSR [place]: normal Normal P waves. Normal [place]. Normal QRS complex. ST T wave : normal , no THAI qTC: normal prior studies: no acute ischemia The study has been interpreted contemporaneously by me. . <Kanchan Barrow DO - Last Filed: 09/28/20 16:20> Discharge Plan Discharge Clinical Impression: Palpitations, Acute chest wall pain <CHACORTA Patel - Last Filed: 09/28/20 13:49> Patient Disposition: Home, Self-Care <CHACORTA Patel Last Filed: 09/28/20 13:49> Instructions: Heart Palpitations (ED), Chest Wall Pain (ED) <CHACORTA Patel Last Filed: 09/28/20 13:49> Additional Instructions: return to ED for any worsening symptoms or concerns <CHACORTA Patel Last Filed: 09/28/20 13:49> Prescriptions: New cyclobenzaprine 10 mg tablet 10 mg PO TID PRN (Reason: muscle spasm) Qty: 14 RF: 0 No Action ondansetron HCl [Zofran] 4 mg tablet 4 mg PO Q8H PRN (Reason: nausea and vomiting) Qty: 10 RF: 0 omeprazole 40 mg capsule,delayed release(DR/EC) 40 mg PO DAILY Qty: 20 RF: 0 sucralfate [Carafate] 1 gram tablet 1 g PO .ACHS Qty: 20 RF: 0 <CHACORTA Patel - Last Filed: 09/28/20 13:49> Referrals: [facility] [Primary Care Provider] - 2 days (if not better) <CHACORTA Patel - Last Filed: 09/28/20 13:49>
[2020-09-28 14:38] LABS: MANUAL DIFF FLAG NO
[2020-09-28 14:41] LABS: Basophils Percent Auto 0.4 % (0-2); Eosinophils Absolute Auto 0.2 X10*3/uL (0.0-0.4); Eosinophils Percent Auto 2.8 % (0-4); Hematocrit 42.4 % (37-47); Hemoglobin 13.8 g/dl (12.0-16.0); Imm Gran Abs Auto 0.02 X10*3/uL (0.00-0.03); Imm Gran Pct Auto 0.3 % (0.0-0.4); Lymphocytes Absolute Auto 2.1 X10*3/uL (1.2-4.9); Lymphocytes Percent Auto 28.3 % (20-40); Mean Corpuscular HGB Conc 32.5 g/dl (31.0-35.0); Mean Corpuscular Hemoglobin 27.7 pg (27.0-33.0); Mean Corpuscular Volume 85.1 fL (80-98); Mean Platelet Volume 10.4 fL (9.4-12.3); Monocytes Absolute Auto 0.5 X10*3/uL (0.1-1.2); Neutrophils Absolute Auto 4.4 X10*3/uL (2.0-8.3); Neutrophils Percent Auto 61.2 % (45-73); Platelet Count 305 X10*3/uL (160-400); Red Blood Count 4.98 X10*6/uL (4.20-5.50); White Blood Count 7.2 X10*3/uL (4.8-10.8)
[2020-09-28 15:12] LABS: Alanine Aminotransferase 19 U/L (0-31); Albumin Level 4.4 g/dL (3.5-5.0); Alkaline Phosphatase 89 U/L (39-117); Anion Gap 13 (12-20); Aspartate Amino Transferase 18 U/L (5-31); Bilirubin Direct < 0.2 mg/dL (0.0-0.5); Bilirubin Total 0.5 mg/dL (0.0-1.0); Blood Urea Nitrogen 9 mg/dL (9-16); Calcium 9.1 mg/dL (8.4-10.2); Carbon Dioxide 26 mmol/L (22-29); Chloride 105 mmol/L (96-108); Creatinine Clr Calc Pharmacy 115.1; Estimated Glomerular Filt Rate > 60; Glucose Random 90 mg/dL (60-115); Potassium 4.2 mmol/L (3.3-5.1); Sodium 140 mmol/L (135-145); Total Protein 7.4 g/dL (6.5-8.0)
[2020-09-28 15:16] LABS: Troponin-I High Sensitivity < 3.5 ng/L (<3.5-17.0)
[2020-09-28 15:33] LABS: TSH reflex Free T4 1.29 uIU/mL (0.32-4.0)
[2020-09-28] MEDS: Cyclobenzaprine HCl 10 MG TABLET PO (16:21)
== END 2020-09-28 16:19 | disposition home or self-care (01) ==
PROVIDERS: Physician Assistant; Emergency Provider Emergency Medicine
DX: R00.2 Palpitations (principal); R07.89 Other chest pain
CPT/HCPCS: 36415; 71045; 80048; 80076; 83735; 84443; 84484; 85025; 93005; 99283

== ENCOUNTER 2020-10-29 05:56 | Emergency (ER) | payer MEDICAID, SELFPAY ==
[2020-10-29 06:01] VITALS: BP 148/92; PULSE 87; O2SAT 98
[2020-10-29 06:05] VITALS: BP 121/66; PULSE 68; RESP 15; TEMP 36.3; O2SAT 98; BMI 29.2
--- NOTE | 2020-10-29 06:23 | ED.HA ---
HPI - Headache General Chief Complaint: Headache Stated Complaint: headache Time Seen by Provider: 10/29/20 06:18 Source: patient Mode of arrival: EMS History of Present Illness HPI Narrative: 30-year-old female with history of migraines and currently taking topiramate and sumatriptan with a recent history of medication dosage change of the topiramate approximately 1 month ago by Neurology at [facility]. Patient states that this is her typical onset and progression of migraine and denies any recent fevers, chills. She states that she had call the ambulance because she would be unable to take any oral medications due to her associated nausea and vomiting. Related Data Home Medications Medication Instructions Recorded Confirmed cetirizine 1 tab PO DAILY 10/29/20 10/29/20 cyanocobalamin (vitamin B-12) 1 tab PO DAILY 10/29/20 10/29/20 escitalopram oxalate 1 tab PO DAILY 10/29/20 10/29/20 sennosides [senna] 2 tab PO DAILY 10/29/20 10/29/20 Previous Rx's Medication Instructions Recorded omeprazole 40 mg PO DAILY #20 cap 03/28/20 Allergies Allergy/AdvReac Type Severity Reaction Status Date / Time Iodinated Contrast Media Allergy Swelling Verified 03/28/20 13:11 Review of Systems Review of Systems: Pertinent positives and negatives as stated in the HPI and 10 point review of systems is otherwise negative PMFSH Past Medical History Source: nursing notes reviewed Medical History Anxiety Asthma Migraine Panic attack Social History Social History Alcohol intake: never Smoking Status: Never smoker Use of substances other than those prescribed or required for medical reasons: No Advance Directives: No Advance Directives Information Provided: No Patient : No Physical Exam Vital Signs: Vital Signs: Last Vital Signs Temp 97.4 F 10/29/20 06:05 Pulse 68 10/29/20 06:05 Resp 15 10/29/20 06:05 BP 121/66 10/29/20 06:05 Pulse Ox 98 10/29/20 06:05 Body Mass Index 29.2 VITAL SIGNS: Reviewed. GENERAL: Well developed, well nourished, in no acute distress. HEAD: Normocephalic/atraumatic EYES: PERRLA, EOMI intact without pain, no nystagmus EARS: Ext canals without abnormalitys NOSE: Nares patent bilateral OROPHARYNX: no oral lesions noted, posterior pharynx clear NECK: Supple, no adenopathy LUNGS: Normal breath sounds. No adventitious sounds or accessory muscle use. SpO2<98> CARDIOVASCULAR: Regular rate and rhythm without noted murmurs ABDOMEN: Soft, non-tender, non-distended with bowel sounds. NEUROLOGIC: Alert and oriented x 4. Strength and sensation to light touch were grossly intact x 4. Course Course Course Narrative: 30-year-old female with history and clinical presentation consistent with normal course of migraine flare without concerning neurological deficits to suggest more serious complications. Patient will be provided with migraine cocktail and re-evaluated. Signed out to Dr Brown. Discharge Plan Discharge Clinical Impression: Migraine Patient Disposition: Home, Self-Care Instructions: Migraine Headache (ED) Additional Instructions: Resume your home medication as prescribed. Follow-up with your neurologist regarding your breakthrough migraine. Return to the ER for any acute worsening of your symptoms. Prescriptions: No Action sennosides [senna] 8.6 mg tablet 2 tab PO DAILY RF: 0 cetirizine 10 mg tablet 1 tab PO DAILY RF: 0 cyanocobalamin (vitamin B-12) 1,000 mcg tablet 1 tab PO DAILY RF: 0 escitalopram oxalate 10 mg tablet 1 tab PO DAILY RF: 0 omeprazole 40 mg capsule,delayed release(DR/EC) 40 mg PO DAILY Qty: 20 RF: 0 Referrals: [facility] [Primary Care Provider] - 2 days
[2020-10-29] MEDS: ondansetron HCL 4 MG/2 ML VIAL IVPUSH (06:45)
[2020-10-29] MEDS: 0.9 % Sodium Chloride 1,000 ML 999 ML IV (06:45)
[2020-10-29] MEDS: Metoclopramide HCl 10 MG/2 ML VIAL IVPUSH (06:45)
[2020-10-29] MEDS: Ketorolac Tromethamine 15 MG/ML VIAL IVPUSH (06:46)
[2020-10-29] MEDS: diphenhydrAMINE HCL 50 MG/ML VIAL 25 MG IVPUSH (06:46)
[2020-10-29] MEDS: Acetaminophen 325 MG TABLET 975 MG PO (06:47)
== END 2020-10-29 10:12 | disposition home or self-care (01) ==
PROVIDERS: Emergency Provider Student in an Organized Health Care Education/Training Program
DX: G43.909 Migraine, unspecified, not intractable, without status migrainosus (principal); Z79.899 Other long term (current) drug therapy
CPT/HCPCS: 96365; 96372; 96375; 99284; J1200; J1885; J2405; J2765

== ENCOUNTER 2020-11-30 12:17 | Emergency (ER) | payer MEDICAID, SELFPAY ==
--- NOTE | ~2020-11-30 | XR_ITS ---
EXAMINATION: XR CHEST CLINICAL INFORMATION: Shortness of breath and chest pain COMPARISON: Previous chest x-ray September 2020 TECHNIQUE: Frontal view of the chest was obtained. FINDINGS: The cardiac and mediastinal contours are normal. The lungs are clear. There is no pleural effusion or pneumothorax. There is curvature of the lower thoracic and upper lumbar spine to the left. Bony structures are otherwise unremarkable. XR/XR chest 1V IMPRESSION: No evidence for acute disease in the chest.
[2020-11-30 12:40] VITALS: BP 127/63; PULSE 55; RESP 20; TEMP 36.4; O2SAT 98; BMI 28.3
--- NOTE | 2020-11-30 12:59 | ECG_ITS ---
Test Reason : SIEZURE Blood Pressure : / mmHG Vent. Rate : 077 BPM Atrial Rate : 077 BPM P-R Int : 118 ms QRS Dur : 094 ms QT Int : 448 ms P-R-T Axes : 070 047 054 degrees QTc Int : 506 ms Sinus rhythm with frequent Premature ventricular complexes Nonspecific T wave abnormality Prolonged QT Abnormal ECG When compared with ECG of 28-SEP-2020 16:07, Premature ventricular complexes are now Present Nonspecific T wave abnormality now evident in Anterior leads QT has lengthened Referred By: Mickie Macias Electronically Signed By:Shahzad Coleman
--- NOTE | 2020-11-30 13:23 | ED_ITS ---
HPI - Syncope General Chief Complaint: Syncope Stated Complaint: SEIZURE @ [facility],POST ICTAL PER EMS Time Seen by Provider: 11/30/20 12:19 Source: patient and EMS Mode of arrival: EMS Limitations: no limitations History of Present Illness HPI narrative: 30 y/o female with history of asthma, migraines, anxiety, seaso nal allergies presents to the ER via EMS after she had a syncopal event at [employer] earlier today. She reports going to her son's graduation event this morning and then they went into her [employer] afterward. 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 This was associated with chest pains, SOB and tingling and numbness in her whole body. She has been having palpitations on/off for the last 1 month, had unremarkable workup with her PCP at [facility]. She was feeling unwell so sat down. They took her BP and it was 130/90s. She felt tingling and twitching in both hands and her left eye. She was breathing rapidly. She was sitting down when she passed out and lost consciousness. She states the next thing she knew she was rolling into the ER on a stretcher. Family at the bedside who denies any traumatic injury, no tonic clonic seizure activity but twitching of her hands/fingers. No incontinence or tongue biting. Denies substance use. MD complaint: loss of consciousness and felt faint Onset (ago): hour(s) -: minutes(s) Description of event: post-event confusion and focal shaking Prodromal symptoms: chest pain, palpitations and shortness of breath Witnessed: Yes - by Bystander Context: at rest Injuries sustained associated with event: none Current symptoms: chest pain, shortness of breath and other (palpitations) Treatments prior to arrival: none Related Data Home Medications Medication Instructions Recorded Confirmed cetirizine 1 tab PO DAILY 10/29/20 10/29/20 cyanocobalamin (vitamin B-12) 1 tab PO DAILY 10/29/20 10/29/20 escitalopram oxalate 1 tab PO DAILY 10/29/20 10/29/20 sennosides [senna] 2 tab PO DAILY 10/29/20 10/29/20 Previous Rx's Medication Instructions Recorded omeprazole 40 mg PO DAILY #20 cap 03/28/20 Allergies Allergy/AdvReac Type Severity Reaction Status Date / Time Iodinated Contrast Media Allergy Swelling Verified 03/28/20 13:11 Review of Systems Review of Systems: Constitutional: No Fever, No Chills ENT/Mouth: No sore throat, No Rhinorrhea, No Swallowing Difficulty Eyes: No Eye Pain, No Swelling, No Redness, +eye twitching Cardiovascular: + Chest Pain, + SOB, No Orthopnea, No Edema Respiratory: No Cough, No Sputum, No Wheezing, No dyspnea Gastrointestinal: No Nausea, No Vomiting, No Diarrhea, No abdominal Pain, No Hematochezia, No Melena Genitourinary: No Dysuria, No Urinary Frequency, No Hematuria Musculoskeletal: No joint pain, No Myalgias Skin: No Skin Lesions, No rash Neuro: + Weakness, + Numbness, + Dizziness, + Headache Psych: + Anxiety/Panic, No Depression Heme/Lymph: No Bruising, No Lymphadenopathy Endocrine: No Polyuria, No Polydipsia PMFSH Past Medical History Attestation statement: The following information was validated with the patient. Medical History Anxiety Asthma Migraine Panic attack Social History Social History Alcohol intake: never Physical Exam Vital Signs: Vital Signs: Last Vital Signs Temp 97.6 F 11/30/20 12:40 Pulse 80 11/30/20 14:24 Resp 18 11/30/20 14:24 BP 130/79 11/30/20 14:24 Pulse Ox 100 11/30/20 14:24 Body Mass Index 28.3 Appearance: Alert. Oriented X3. No acute distress. Eyes: Pupils equal, round and reactive to light. ENT: Pharynx normal. Neck: Normal inspection. Neck supple. CVS: Normal heart rate and rhythm. Pulses normal. Respiratory: No respiratory distress. Breath sounds normal. Abdomen: Soft and nontender. +BS x4 Skin: Skin warm and dry. Normal skin color. Normal skin turgor. No rashes. Extremities: No lower extremity edema. Neuro: Oriented X 3. No motor deficit. No sensory deficit. Speaks in complete sentences Course Course Course Narrative: 30 y/o female with history of anxiety, migraines, & asthma presents to the ER with syncopal event today. She reports chest pain, SOB and palpitations. Will need to r/o PE. She is AAO x3 and non-focal on exam. No injuries. VS are normal. EKG is bigeminy and her palpitations are likely due to PVC's. Will place on cardiac cath lab technologist, get orthostatic VS and monitor closely. Dispo pending results and improvement. Reevaluation(s) Reevaluation #1: DDIMER and troponin are negative. Orthostatic VS are negative. Given Mg++ and K+ to keep on upper limits of normal given her PVC's and increased QTc. She was reporting migraine headache coming on and increased anxiety so her home topamax ordered as well as ativan. She admits to increased stress at home with her 6 children, she is unable to take her PRN hydroxyzine because it makes her too tired to care for her children. Reevaluation #2: Patient is feeling better, tired from the Ativan but overall better. HEr UA is positive, denies dysuria but admits to frequency and urgency so will treat. Her syncope today was most likely related to anxiety attack and hyperventilation. She is stable for discharge home with outpatient follow up. Recommending f/u with Cardiology as well. She agrees with plan. MDM - Syncope Differential Diagnosis Differential diagnosis: Likely syncope due to orthostatic hypotension, vasovagal syncope, complete atrioventricular block, pulmonary embolism and dehydration Medical Records Attestation: I reviewed the patient's medical records. Lab Data Attestation: I reviewed the patient's lab results. Result diagrams: 11/30/20 14:09 11/30/20 14:09 Labs: Lab Results 11/30/20 11/30/20 11/30/20 Range/Units 14:09 14:09 14:09 WBC 6.5 (4.8-10.8) X10*3/uL RBC 4.90 (4.20-5.50) X10*6/uL Hgb 13.5 (12.0-16.0) g/dl Hct 40.4 (37-47) % MCV 82.4 (80-98) fL MCH 27.6 (27.0-33.0) pg MCHC 33.4 (31.0-35.0) g/dl RDW 13.2 (11.0-16.0) % Plt Count 316 (160-400) X10*3/uL MPV 10.4 (9.4-12.3) fL Immature Gran % (Auto) 0.3 (0.0-0.4) % Neut % (Auto) 61.0 (45-73) % Lymph % (Auto) 29.8 (20-40) % [place] % (Auto) 6.4 (2-11) % Eos % (Auto) 1.9 (0-4) % Baso % (Auto) 0.6 (0-2) % Lymph # (Auto) 1.9 (1.2-4.9) X10*3/uL [place] # (Auto) 0.4 (0.1-1.2) X10*3/uL Eos # (Auto) 0.1 (0.0-0.4) X10*3/uL Baso # (Auto) 0.0 (0.0-0.2) X10*3/uL Abs Immat Gran (auto) 0.02 (0.00-0.03) X10*3/uL Absolute Neuts (auto) 3.9 (2.0-8.3) X10*3/uL Absolute Nucleated RBC 0.000 (0.0-0.012) X10*3/uL Nucleated RBC % (auto) 0.0 (0.0-0.2) /100WBC D-Dimer < 200 NG/ML Sodium 141 (135-145) mmol/L Potassium 3.4 (3.3-5.1) mmol/L Chloride 111 H (96-108) mmol/L Carbon Dioxide 24 (22-29) mmol/L Anion Gap 9 L (12-20) BUN 7 L (9-16) mg/dL Creatinine 0.69 (0.5-1.4) mg/dL Estim Creat Clear Calc 111.7 Estimated GFR > 60 Random Glucose 107 (60-115) mg/dL Calcium 9.6 (8.4-10.2) mg/dL Magnesium 1.9 (1.6-2.6) mg/dL Total Bilirubin 0.5 (0.0-1.0) mg/dL Direct Bilirubin 0.2 (0.0-0.5) mg/dL AST 20 (5-31) U/L ALT 18 (0-31) U/L Alkaline Phosphatase 69 D (39-117) U/L Troponin I High Sens (<3.5-17.0) ng/L Total Protein 6.9 (6.5-8.0) g/dL Albumin 4.2 (3.5-5.0) g/dL TSH (0.32-4.0) uIU/mL Urine Color Urine Appearance Urine pH (5.0-8.0) Ur Specific [employer] (1.005-1.025) Urine Protein (NEG-TRACE) MG/DL Urine Glucose (UA) (NEG) MG/DL Urine Ketones (NEG) MG/DL Urine Blood (NEG) Urine Nitrite (NEG) Ur Leukocyte Esterase (NEG) Urine RBC (0) /HPF Urine WBC (0-4) /HPF Ur Squamous Epith Cells /LPF Urine Bacteria /LPF Urine Test (NEGATIVE) Urine Opiates Screen (Not Detect) Ur Barbiturates Screen (Not Detect) Ur Phencyclidine Scrn (Not Detect) Ur Amphetamines Screen (Not Detect) U Benzodiazepines Scrn (Not Detect) Urine Cocaine Screen (Not Detect) U Marijuana (THC) Screen (Not Detect) Ethyl Alcohol mg/dL 11/30/20 11/30/20 11/30/20 Range/Units 14:09 14:09 14:09 WBC (4.8-10.8) X10*3/uL RBC (4.20-5.50) X10*6/uL Hgb (12.0-16.0) g/dl Hct (37-47) % MCV (80-98) fL MCH (27.0-33.0) pg MCHC (31.0-35.0) g/dl RDW (11.0-16.0) % Plt Count (160-400) X10*3/uL MPV (9.4-12.3) fL Immature Gran % (Auto) (0.0-0.4) % Neut % (Auto) (45-73) % Lymph % (Auto) (20-40) % [place] % (Auto) (2-11) % Eos % (Auto) (0-4) % Baso % (Auto) (0-2) % Lymph # (Auto) (1.2-4.9) X10*3/uL [place] # (Auto) (0.1-1.2) X10*3/uL Eos # (Auto) (0.0-0.4) X10*3/uL Baso # (Auto) (0.0-0.2) X10*3/uL Abs Immat Gran (auto) (0.00-0.03) X10*3/uL Absolute Neuts (auto) (2.0-8.3) X10*3/uL Absolute Nucleated RBC (0.0-0.012) X10*3/uL Nucleated RBC % (auto) (0.0-0.2) /100WBC D-Dimer NG/ML Sodium (135-145) mmol/L Potassium (3.3-5.1) mmol/L Chloride (96-108) mmol/L Carbon Dioxide (22-29) mmol/L Anion Gap (12-20) BUN (9-16) mg/dL Creatinine (0.5-1.4) mg/dL Estim Creat Clear Calc Estimated GFR Random Glucose (60-115) mg/dL Calcium (8.4-10.2) mg/dL Magnesium (1.6-2.6) mg/dL Total Bilirubin (0.0-1.0) mg/dL Direct Bilirubin (0.0-0.5) mg/dL AST (5-31) U/L ALT (0-31) U/L Alkaline Phosphatase (39-117) U/L Troponin I High Sens < 3.5 (<3.5-17.0) ng/L Total Protein (6.5-8.0) g/dL Albumin (3.5-5.0) g/dL TSH 0.77 (0.32-4.0) uIU/mL Urine Color Urine Appearance Urine pH (5.0-8.0) Ur Specific [place] (1.005-1.025) Urine Protein (NEG-TRACE) MG/DL Urine Glucose (UA) (NEG) MG/DL Urine Ketones (NEG) MG/DL Urine Blood (NEG) Urine Nitrite (NEG) Ur Leukocyte Esterase (NEG) Urine RBC (0) /HPF Urine WBC (0-4) /HPF Ur Squamous Epith Cells /LPF Urine Bacteria /LPF Urine Test (NEGATIVE) Urine Opiates Screen (Not Detect) Ur Barbiturates Screen (Not Detect) Ur Phencyclidine Scrn (Not Detect) Ur Amphetamines Screen (Not Detect) U Benzodiazepines Scrn (Not Detect) Urine Cocaine Screen (Not Detect) U Marijuana (THC) Screen (Not Detect) Ethyl Alcohol < 10 mg/dL 11/30/20 11/30/20 11/30/20 Range/Units 15:00 15:00 15:00 WBC (4.8-10.8) X10*3/uL RBC (4.20-5.50) X10*6/uL Hgb (12.0-16.0) g/dl Hct (37-47) % MCV (80-98) fL MCH (27.0-33.0) pg MCHC (31.0-35.0) g/dl RDW (11.0-16.0) % Plt Count (160-400) X10*3/uL MPV (9.4-12.3) fL Immature Gran % (Auto) (0.0-0.4) % Neut % (Auto) (45-73) % Lymph % (Auto) (20-40) % [place] % (Auto) (2-11) % Eos % (Auto) (0-4) % Baso % (Auto) (0-2) % Lymph # (Auto) (1.2-4.9) X10*3/uL [place] # (Auto) (0.1-1.2) X10*3/uL Eos # (Auto) (0.0-0.4) X10*3/uL Baso # (Auto) (0.0-0.2) X10*3/uL Abs Immat Gran (auto) (0.00-0.03) X10*3/uL Absolute Neuts (auto) (2.0-8.3) X10*3/uL Absolute Nucleated RBC (0.0-0.012) X10*3/uL Nucleated RBC % (auto) (0.0-0.2) /100WBC D-Dimer NG/ML Sodium (135-145) mmol/L Potassium (3.3-5.1) mmol/L Chloride (96-108) mmol/L Carbon Dioxide (22-29) mmol/L Anion Gap (12-20) BUN (9-16) mg/dL Creatinine (0.5-1.4) mg/dL Estim Creat Clear Calc Estimated GFR Random Glucose (60-115) mg/dL Calcium (8.4-10.2) mg/dL Magnesium (1.6-2.6) mg/dL Total Bilirubin (0.0-1.0) mg/dL Direct Bilirubin (0.0-0.5) mg/dL AST (5-31) U/L ALT (0-31) U/L Alkaline Phosphatase (39-117) U/L Troponin I High Sens (<3.5-17.0) ng/L Total Protein (6.5-8.0) g/dL Albumin (3.5-5.0) g/dL TSH (0.32-4.0) uIU/mL Urine Color YELLOW Urine Appearance HAZY Urine pH 8.0 (5.0-8.0) Ur Specific [employer] 1.010 (1.005-1.025) Urine Protein NEG (NEG-TRACE) MG/DL Urine Glucose (UA) NEG (NEG) MG/DL Urine Ketones NEG (NEG) MG/DL Urine Blood 3+ H (NEG) Urine Nitrite NEG (NEG) Ur Leukocyte Esterase 2+ H (NEG) Urine RBC 30-49 H (0) /HPF Urine WBC 15-29 H (0-4) /HPF Ur Squamous Epith Cells 3+ /LPF Urine Bacteria 2+ /LPF Urine Test NEGATIVE (NEGATIVE) Urine Opiates Screen Not Detected (Not Detect) Ur Barbiturates Screen Not Detected (Not Detect) Ur Phencyclidine Scrn Not Detected (Not Detect) Ur Amphetamines Screen Not Detected (Not Detect) U Benzodiazepines Scrn Not Detected (Not Detect) Urine Cocaine Screen Not Detected (Not Detect) U Marijuana (THC) Screen Not Detected (Not Detect) Ethyl Alcohol mg/dL ECG Data Attestation: I personally reviewed and interpreted this ECG as follows: ECG interpretation date: 11/30/20 ECG interpretation time: 13:29 Interpretation: sinus rhythm with frequent PVCs in bigemony pattern, prolonged QTc 506 ms, normal HI interval 118 ms, nor ST segment elevations or depressions. Discharge Plan Discharge Clinical Impression: Anxiety attack, Frequent PVCs Syncope Qualifiers: Syncope type: unspecified Qualified Code(s): R55 - Syncope and collapse UTI (urinary tract infection) Qualifiers: Urinary tract infection type: acute cystitis Hematuria presence: with hematuria Qualified Code(s): N30.01 - Acute cystitis with hematuria Patient Disposition: Home, Self-Care Instructions: Heart Palpitations (ED), Syncope (ED), Anxiety (ED) Additional Instructions: Your lab workup today was unremarkable. Your EKG showed frequent extra beats most likely what is causing your palpitations. This is not life threatening. Recommend following up with Cardiology for further workup. Anxiety was also likely contributing to the event today. Rest and stay hydrated. Take your hydoxazine as needed. Recommend following up with your Primary Care Doctor for further management of your anxiety. If you have recurrent symptoms or any new or concerning symptoms come back to the ER for further evaluation. Prescriptions: No Action sennosides [senna] 8.6 mg tablet 2 tab PO DAILY RF: 0 cetirizine 10 mg tablet 1 tab PO DAILY RF: 0 cyanocobalamin (vitamin B-12) 1,000 mcg tablet 1 tab PO DAILY RF: 0 escitalopram oxalate 10 mg tablet 1 tab PO DAILY RF: 0 omeprazole 40 mg capsule,delayed release(DR/EC) 40 mg PO DAILY Qty: 20 RF: 0 Referrals: Shahzad Coleman MD [Physician] - 1 week (palpitations, bigeminy, syncope) Stand Alone Forms: Work/School Release Discharge Date/Time: 11/30/20 16:53
[2020-11-30] MEDS: Magnesium Sulfate/D5W 1 GM/100 ML PIGGYBACK IV (13:49)
[2020-11-30] MEDS: 0.9 % Sodium Chloride 1,000 ML 999 ML IVCONT (13:50)
[2020-11-30 14:12] VITALS: O2SAT 97
[2020-11-30 14:16] LABS: MANUAL DIFF FLAG NO
[2020-11-30 14:18] VITALS: BP 107/59; PULSE 68
[2020-11-30 14:20] VITALS: BP 124/79; PULSE 70
[2020-11-30 14:22] VITALS: BP 130/79; PULSE 80
[2020-11-30 14:23] LABS: Basophils Percent Auto 0.6 % (0-2); Eosinophils Absolute Auto 0.1 X10*3/uL (0.0-0.4); Eosinophils Percent Auto 1.9 % (0-4); Hematocrit 40.4 % (37-47); Hemoglobin 13.5 g/dl (12.0-16.0); Imm Gran Abs Auto 0.02 X10*3/uL (0.00-0.03); Imm Gran Pct Auto 0.3 % (0.0-0.4); Lymphocytes Absolute Auto 1.9 X10*3/uL (1.2-4.9); Lymphocytes Percent Auto 29.8 % (20-40); Mean Corpuscular HGB Conc 33.4 g/dl (31.0-35.0); Mean Corpuscular Hemoglobin 27.6 pg (27.0-33.0); Mean Corpuscular Volume 82.4 fL (80-98); Mean Platelet Volume 10.4 fL (9.4-12.3); Monocytes Absolute Auto 0.4 X10*3/uL (0.1-1.2); Monocytes Percent Auto 6.4 % (2-11); Neutrophils Absolute Auto 3.9 X10*3/uL (2.0-8.3); Platelet Count 316 X10*3/uL (160-400); Red Cell Distribution Width 13.2 % (11.0-16.0); White Blood Count 6.5 X10*3/uL (4.8-10.8)
[2020-11-30 14:24] VITALS: BP 130/79; PULSE 80; RESP 18; O2SAT 100
[2020-11-30 14:29] LABS: D Dimer < 200 NG/ML
[2020-11-30 14:39] LABS: Ethanol < 10 mg/dL
[2020-11-30 14:47] LABS: Troponin-I High Sensitivity < 3.5 ng/L (<3.5-17.0)
[2020-11-30 14:50] LABS: Alanine Aminotransferase 18 U/L (0-31); Albumin Level 4.2 g/dL (3.5-5.0); Alkaline Phosphatase 69 U/L (39-117); Anion Gap 9 (12-20); Aspartate Amino Transferase 20 U/L (5-31); Bilirubin Direct 0.2 mg/dL (0.0-0.5); Bilirubin Total 0.5 mg/dL (0.0-1.0); Blood Urea Nitrogen 7 mg/dL (9-16); Calcium 9.6 mg/dL (8.4-10.2); Carbon Dioxide 24 mmol/L (22-29); Chloride 111 mmol/L (96-108); Creatinine Clr Calc Pharmacy 111.7; Estimated Glomerular Filt Rate > 60; Glucose Random 107 mg/dL (60-115); Magnesium 1.9 mg/dL (1.6-2.6); Potassium 3.4 mmol/L (3.3-5.1); Sodium 141 mmol/L (135-145); Total Protein 6.9 g/dL (6.5-8.0)
[2020-11-30] MEDS: Topiramate 25 MG TABLET 50 MG PO (14:53)
[2020-11-30] MEDS: LORazepam 2 MG/ML VIAL 1 MG IVPUSH (14:53)
[2020-11-30 15:06] LABS: TSH reflex Free T4 0.77 uIU/mL (0.32-4.0)
[2020-11-30 15:19] LABS: Glucose Urine UA NEG (NEG); Leukocyte Esterase Urine 2+ (NEG); Nitrite Urine NEG (NEG); UACC Culture Trigger YES; Urine Blood 3+ (NEG); Urine Ketones NEG (NEG); Urine Protein NEG (NEG-TRACE)
[2020-11-30 15:22] LABS: Appearance Urine HAZY; Color Urine YELLOW
[2020-11-30 15:23] LABS: UPreg QC Valid YES; Urine Pregnancy NEGATIVE (NEGATIVE)
[2020-11-30 15:30] LABS: Amphetamine Screen Urine Not Detected (Not Detect); Barbiturates, Urine Not Detected (Not Detect); Benzodiazepines Screen Urine Not Detected (Not Detect); Cannabinoid Screen Urine Not Detected (Not Detect); Cocaine Screen Urine Not Detected (Not Detect); Opiate Screen Urine Not Detected (Not Detect); Phencyclidine Screen Urine Not Detected (Not Detect)
[2020-11-30 15:38] LABS: Bacteria Urine 2+ /LPF; RBC Urine 30-49 /HPF (0); Squamous Epithelial Cell Urine 3+ /LPF
[2020-11-30] MEDS: Potassium Chloride ER 20 MEQ TAB.ER.PRT 40 MEQ PO (16:16)
== END 2020-11-30 16:53 | disposition home or self-care (01) ==
PROVIDERS: Physician Assistant; Emergency Provider Emergency Medicine Emergency Medical Services
DX: F41.0 Panic disorder [episodic paroxysmal anxiety] (principal); N30.01 Acute cystitis with hematuria; I49.3 Ventricular premature depolarization; J45.909 Unspecified asthma, uncomplicated; Z79.899 Other long term (current) drug therapy
CPT/HCPCS: 36415; 71045; 80048; 80076; 80307; 81001; 81003; 81025; 82077; 83735; 84443; 84484; 85025; 85379; 87086; 93005; 96361; 96365; 96375; 99284; 99285; J2060; J3475

== ENCOUNTER 2020-12-14 10:53 | Outpatient (REF) | payer MEDICAID, SELFPAY ==
--- NOTE | ~2020-12-14 | XR_ITS ---
EXAMINATION: XR THORACIC SPINE CLINICAL INFORMATION: Dorsalgia COMPARISON: Chest x-ray November 2020 TECHNIQUE: 3 views of the thoracic spine were obtained. FINDINGS: There is no fracture or bone destruction seen and the vertebral alignment is normal. There is no disc space narrowing. There is no abnormality of the paraspinal soft tissues. XR/XR thoracic spine 3V IMPRESSION: Unremarkable examination.
== END 2020-12-14 10:54 | disposition home or self-care (01) ==
LOC: HO.XRAY 10:53
PROVIDERS: PCP Nurse Practitioner Family; Visit Provider Nurse Practitioner Family
DX: M54.9 Dorsalgia, unspecified (principal)
CPT/HCPCS: 72072

== ENCOUNTER 2021-02-08 16:51 | Emergency (ER) | payer MEDICAID, SELFPAY ==
--- NOTE | 2021-02-08 | ECG_ITS ---
Test Reason : CHEST PAIN Blood Pressure : / mmHG Vent. Rate : 083 BPM Atrial Rate : 083 BPM P-R Int : 106 ms QRS Dur : 088 ms QT Int : 438 ms P-R-T Axes : 058 048 063 degrees QTc Int : 514 ms Sinus rhythm with short VA with frequent Premature ventricular complexes Nonspecific T wave abnormality Prolonged QT Abnormal ECG When compared with ECG of 30-NOV-2020 13:00, No significant change was found Referred By: Generic ED Physician Electronically Signed By:JESSICA DUNNE
[2021-02-08 17:06] VITALS: BP 118/84; PULSE 50; RESP 16; TEMP 36.1; O2SAT 98; BMI 31.8
--- NOTE | 2021-02-08 18:19 | ED.ARRPALP ---
HPI - Arrhythmia/Palpitations General Chief Complaint: Arrhythmia/Palpitations Stated Complaint: cp Time Seen by Provider: 02/08/21 18:06 Source: patient Mode of arrival: ambulatory Limitations: no limitations History of Present Illness HPI narrative: Patient comes emergency room complaining palpitations. Patient states that he has been having palpitations for 2 weeks, currently using a Holter monitor. Patient states that the palpitations were worse yesterday. Patient denies chest pain, shortness of breath Related Data Home Medications Medication Instructions Recorded Confirmed cetirizine 10 mg tablet 1 tab PO DAILY 10/29/20 10/29/20 cyanocobalamin (vitamin B-12) 1 tab PO DAILY 10/29/20 10/29/20 1,000 mcg tablet escitalopram oxalate 10 mg tablet 1 tab PO DAILY 10/29/20 10/29/20 sennosides 8.6 mg tablet (senna) 2 tab PO DAILY 10/29/20 10/29/20 Previous Rx's Medication Instructions Recorded omeprazole 40 mg capsule,delayed 40 mg PO DAILY #20 cap 03/28/20 release Allergies Allergy/AdvReac Type Severity Reaction Status Date / Time Iodinated Contrast Media Allergy Swelling Verified 03/28/20 13:11 Review of Systems Review of Systems: Constitutional : No Weight loss, No Fever, No Chills, No Night Sweats, No Fatigue, No Malaise ENT/Mouth : No Hearing loss, No Ear Pain, No Nasal Congestion, No Sinus Pain, No Hoarseness, No sore throat, No Rhinorrhea, No Swallowing Difficulty Eyes: No Eye Pain, No Swelling, No Redness, No Foreign Body, No Discharge, No Vision Changes Cardiovascular : No Chest Pain, No SOB, No Dyspnea on Exertion, No Orthopnea, No Edema, complaining of Palpitations Respiratory : No Cough, No Sputum, No Wheezing, No Smoke Exposure, No Dyspnea Gastrointestinal : No Nausea, No Vomiting, No Diarrhea, No Constipation, No abdominal Pain, No Hematochezia, No Melena Genitourinary : no irregular bleeding, No Dysuria, No Urinary Frequency, No Hematuria, No Urinary Incontinence, No Urgency, No Flank Pain, No Urinary Flow Changes, No Hesitancy Musculoskeletal : No joint pain, No Myalgias, No Joint Swelling Skin : No Skin Lesions, No rash Neuro : No Weakness, No Numbness, No Paresthesias, No Loss of Consciousness, No Dizziness, No Headache Psych : No Anxiety/Panic, No Depression, No SI/HI/AH/VH, No Social Issues, Heme/Lymph: No Bruising, No Bleeding,No Lymphadenopathy Endocrine : No Polyuria, No Polydipsia, No Temperature Intolerance [facility] Past Medical History Medical History Anxiety Asthma Migraine Panic attack Social History Social History Alcohol intake: never Advance Directives: No Advance Directives Information Provided: Yes Physical Exam Vital Signs: Vital Signs: Last Vital Signs Temp 96.9 F 02/08/21 17:06 Pulse 50 02/08/21 17:06 Resp 16 02/08/21 17:06 BP 118/84 02/08/21 17:06 Pulse Ox 98 02/08/21 17:06 Body Mass Index 31.8 Appearance: Alert. Oriented X3. No acute distress. Eyes: Pupils equal, round and reactive to light. ENT: Pharynx normal. Neck: Normal inspection. Neck supple. No lymph nodes noted. No crepitus CVS: Irregularly irregular. Pulses normal. Normal S1 and S2 Respiratory: No respiratory distress. Breath sounds normal. No Wheezing. No rales Abdomen: Soft and nontender. No rigidity. No distention. good BS x4 Skin: Skin warm and dry. Normal skin color. Normal skin turgor. Extremities: No lower extremity edema. No lower extremity edema. No Lacerations. No Rash Neuro: Oriented X 3. No motor deficit. No sensory deficit. Moving all extermities. No slurred speech. Course Course Course Narrative: I discussed with the patient that in the monitor we have seen multiple PVCs. Patient has had this since at least November. Patient is currently on a Holter monitor. 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 MDM - Arrhythmia/Palpitations Lab Data Result diagrams: 02/08/21 18:41 02/08/21 18:41 Labs: Lab Results 02/08/21 02/08/21 02/08/21 Range/Units 18:41 18:41 18:41 WBC 7.8 (4.8-10.8) X10*3/uL RBC 4.41 (4.20-5.50) X10*6/uL Hgb 12.0 (12.0-16.0) g/dl Hct 36.9 L (37-47) % MCV 83.7 (80-98) fL MCH 27.2 (27.0-33.0) pg MCHC 32.5 (31.0-35.0) g/dl RDW 13.8 (11.0-16.0) % Plt Count 285 (160-400) X10*3/uL MPV 10.6 (9.4-12.3) fL Immature Gran % (Auto) 0.3 (0.0-0.4) % Neut % (Auto) 52.7 (45-73) % Lymph % (Auto) 36.2 (20-40) % [place] % (Auto) 7.5 (2-11) % Eos % (Auto) 2.8 (0-4) % Baso % (Auto) 0.5 (0-2) % Lymph # (Auto) 2.8 (1.2-4.9) X10*3/uL [place] # (Auto) 0.6 (0.1-1.2) X10*3/uL Eos # (Auto) 0.2 (0.0-0.4) X10*3/uL Baso # (Auto) 0.0 (0.0-0.2) X10*3/uL Abs Immat Gran (auto) 0.02 (0.00-0.03) X10*3/uL Absolute Neuts (auto) 4.1 (2.0-8.3) X10*3/uL Absolute Nucleated RBC 0.000 (0.0-0.012) X10*3/uL Nucleated RBC % (auto) 0.0 (0.0-0.2) /100WBC Sodium 138 (135-145) mmol/L Potassium 3.6 (3.3-5.1) mmol/L Chloride 110 H (96-108) mmol/L Carbon Dioxide 21 L (22-29) mmol/L Anion Gap 11 L (12-20) BUN 12 D (9-16) mg/dL Creatinine 0.76 (0.5-1.4) mg/dL Estim Creat Clear Calc 107.5 Estimated GFR > 60 Random Glucose 94 (60-115) mg/dL Calcium 9.0 D (8.4-10.2) mg/dL Troponin I High Sens < 3.5 (<3.5-17.0) ng/L TSH 0.77 (0.32-4.0) uIU/mL Discharge Plan Discharge Clinical Impression: Ventricular premature beats, Palpitations Patient Disposition: Home, Self-Care Instructions: Heart Palpitations (ED) Additional Instructions: Please follow-up with your primary care physician tomorrow. If you have any worsening or new symptoms, please return to the emergency room or call 911 Prescriptions: No Action sennosides [senna] 8.6 mg tablet 2 tab PO DAILY RF: 0 cetirizine 10 mg tablet 1 tab PO DAILY RF: 0 cyanocobalamin (vitamin B-12) 1,000 mcg tablet 1 tab PO DAILY RF: 0 escitalopram oxalate 10 mg tablet 1 tab PO DAILY RF: 0 omeprazole 40 mg capsule,delayed release(DR/EC) 40 mg PO DAILY Qty: 20 RF: 0
--- NOTE | 2021-02-08 18:22 | PC.NURSE ---
confirmed with md only one ekg is needed.
[2021-02-08 18:47] LABS: MANUAL DIFF FLAG NO
[2021-02-08 18:50] LABS: Basophils Percent Auto 0.5 % (0-2); Eosinophils Absolute Auto 0.2 X10*3/uL (0.0-0.4); Eosinophils Percent Auto 2.8 % (0-4); Hematocrit 36.9 % (37-47); Imm Gran Abs Auto 0.02 X10*3/uL (0.00-0.03); Imm Gran Pct Auto 0.3 % (0.0-0.4); Lymphocytes Absolute Auto 2.8 X10*3/uL (1.2-4.9); Lymphocytes Percent Auto 36.2 % (20-40); Mean Corpuscular HGB Conc 32.5 g/dl (31.0-35.0); Mean Corpuscular Hemoglobin 27.2 pg (27.0-33.0); Mean Corpuscular Volume 83.7 fL (80-98); Mean Platelet Volume 10.6 fL (9.4-12.3); Monocytes Absolute Auto 0.6 X10*3/uL (0.1-1.2); Monocytes Percent Auto 7.5 % (2-11); Neutrophils Absolute Auto 4.1 X10*3/uL (2.0-8.3); Neutrophils Percent Auto 52.7 % (45-73); Platelet Count 285 X10*3/uL (160-400); Red Blood Count 4.41 X10*6/uL (4.20-5.50); Red Cell Distribution Width 13.8 % (11.0-16.0); White Blood Count 7.8 X10*3/uL (4.8-10.8)
[2021-02-08 19:03] LABS: Anion Gap 11 (12-20); Blood Urea Nitrogen 12 mg/dL (9-16); Carbon Dioxide 21 mmol/L (22-29); Chloride 110 mmol/L (96-108); Creatinine Clr Calc Pharmacy 107.5; Estimated Glomerular Filt Rate > 60; Glucose Random 94 mg/dL (60-115); Potassium 3.6 mmol/L (3.3-5.1); Sodium 138 mmol/L (135-145)
[2021-02-08 19:10] LABS: Troponin-I High Sensitivity < 3.5 ng/L (<3.5-17.0)
[2021-02-08 19:25] LABS: TSH reflex Free T4 0.77 uIU/mL (0.32-4.0)
[2021-02-08 20:03] VITALS: BP 120/58; PULSE 57; RESP 17; TEMP 37.2; O2SAT 98
== END 2021-02-08 20:35 | disposition home or self-care (01) ==
PROVIDERS: Emergency Provider Emergency Medicine
DX: I49.3 Ventricular premature depolarization (principal); R00.2 Palpitations
CPT/HCPCS: 36415; 80048; 84443; 84484; 85025; 93005; 99283

== ENCOUNTER 2021-03-14 11:52 | Emergency (ER) | payer MEDICAID, SELFPAY | END 2021-03-14 15:49 | disposition left against medical advice (07) | PROVIDERS: Emergency Provider Emergency Medicine | DX: R09.81 Nasal congestion (principal) ==

== ENCOUNTER 2021-03-15 08:41 | Emergency (ER) | payer MEDICAID, SELFPAY ==
[2021-03-15 08:50] VITALS: BP 125/72; PULSE 60; RESP 18; TEMP 36.6; O2SAT 100; BMI 31.8
[2021-03-15 09:07] LABS: Appearance Urine CLEAR; Color Urine YELLOW; Glucose Urine UA NEG (NEG); Leukocyte Esterase Urine NEG (NEG); Nitrite Urine NEG (NEG); Specific Gravity - Urine 1.025 (1.005-1.025); Urine Blood NEG (NEG); Urine Ketones NEG (NEG); Urine Protein NEG (NEG-TRACE)
[2021-03-15 09:29] LABS: COVID-19 Test Negative (Negative)
--- NOTE | 2021-03-15 09:44 | ED.ABDPAIN ---
HPI - Abdominal Pain General Chief Complaint: Abdominal Pain Stated Complaint: abd pain Time Seen by Provider: 03/15/21 09:42 Source: patient Mode of arrival: ambulatory Limitations: no limitations History of Present Illness HPI narrative: 31-year-old female presenting to the ER with upper abdominal pain that started yesterday. She had an episode of nausea and vomiting last night after eating dinner. She also reports intermittent nonbloody diarrhea. She states the pain is in her epigastric area and radiates to her left upper quadrant. Shereports the pain is worse with eating. She denies eating any spicy or greasy foods. She denies a history of reflux or gastritis. She denies fever or chills. No one else at home has similar symptoms. MD elicited complaint: abdominal pain Pertinent past history: none Onset (ago): day(s) (1) Pain Consistency: intermittent Location: epigastric Severity: moderate Quality: aching Radiation: LUQ Migration to: no migration Exacerbating factors: eating Context: history of similar episodes Associated symptoms: nausea, vomiting and diarrhea Related Data Home Medications Medication Instructions Recorded Confirmed cetirizine 10 mg tablet 1 tab PO DAILY 10/29/20 10/29/20 cyanocobalamin (vitamin B-12) 1 tab PO DAILY 10/29/20 10/29/20 1,000 mcg tablet escitalopram oxalate 10 mg tablet 1 tab PO DAILY 10/29/20 10/29/20 sennosides 8.6 mg tablet (senna) 2 tab PO DAILY 10/29/20 10/29/20 Previous Rx's Medication Instructions Recorded omeprazole 40 mg capsule,delayed 40 mg PO DAILY #20 cap 03/28/20 release ondansetron 4 mg disintegrating 4 mg PO Q8H PRN #10 tab 03/15/21 tablet sucralfate 1 gram tablet (Carafate) 1 g PO BID #14 tab 03/15/21 Allergies Allergy/AdvReac Type Severity Reaction Status Date / Time Iodinated Contrast Media Allergy Swelling Verified 03/15/21 08:49 Review of Systems Review of Systems Constitutional: No Fever, No Chills ENT/Mouth: No sore throat, No Rhinorrhea, No Swallowing Difficulty Cardiovascular: No Chest Pain, No SOB, No Orthopnea, No Edema Respiratory: No Cough, No Sputum, No Wheezing, No dyspnea Gastrointestinal: + Nausea, + Vomiting, + Diarrhea, + abdominal Pain, No Hematochezia, No Melena Genitourinary: No Dysuria, No Urinary Frequency, No Hematuria Musculoskeletal: No joint pain, No Myalgias Skin: No Skin Lesions, No rash Neuro: No Weakness, No Numbness, No Dizziness, No Headache Psych: No Anxiety/Panic, No Depression Heme/Lymph: No Bruising, No Lymphadenopathy Physical Exam Vital Signs: Vital Signs: Last Vital Signs Temp 98.1 F 03/15/21 12:00 Pulse 53 03/15/21 12:00 Resp 18 03/15/21 12:00 BP 114/76 03/15/21 12:00 Pulse Ox 99 03/15/21 12:00 Body Mass Index 31.8 Appearance: Alert. Oriented X3. No acute distress. Eyes: Pupils equal, round and reactive to light. ENT: Pharynx normal. Neck: Normal inspection. Neck supple. CVS: Normal heart rate and rhythm. Pulses normal. Respiratory: No respiratory distress. Breath sounds normal. Abdomen: Soft with epigastric abdominal tenderness, reducible, tender umbilical hernia, obese, normal +BS x4 Skin: Skin warm and dry. Normal skin color. Normal skin turgor. No rashes. Extremities: No lower extremity edema. Neuro: Oriented X 3. No motor deficit. No sensory deficit. Course Course Course Narrative: 31-year-old female presents to the ER with 1 day of nausea vomiting diarrhea. She has no fever or chills. Her abdominal exam is essentially benign but revealed some mild epigastric tenderness. She has no right upper quadrant tenderness. We will check basic labs and give GI cocktail. Will reassess. Reevaluation(s) Reevaluation #1: Patient is feeling better after symptomatic management. Her lab work is unremarkable. She had 1 episode of diarrhea while in the emergency room. Her abdomen is nice and soft. She is tolerating p.o. she most likely has a mild gastroenteritis with nausea vomiting and diarrhea for the last 1 day. She appears well. Will treat with diet modifications, antiemetics, and Carafate as needed. patient is stable for discharge home with outpatient follow-up MDM - Abdominal Pain Lab Data Result diagrams: 03/15/21 10:05 03/15/21 10:05 Labs: Lab Results 03/15/21 03/15/21 03/15/21 Range/Units 08:57 09:07 10:05 WBC 5.9 (4.8-10.8) X10*3/uL RBC 4.76 (4.20-5.50) X10*6/uL Hgb 13.0 (12.0-16.0) g/dl Hct 39.3 (37-47) % MCV 82.6 (80-98) fL MCH 27.3 (27.0-33.0) pg MCHC 33.1 (31.0-35.0) g/dl RDW 13.7 (11.0-16.0) % Plt Count 360 D (160-400) X10*3/uL MPV 10.5 (9.4-12.3) fL Immature Gran % (Auto) 0.2 (0.0-0.4) % Neut % (Auto) 61.8 (45-73) % Lymph % (Auto) 29.1 (20-40) % [place] % (Auto) 6.3 (2-11) % Eos % (Auto) 1.9 (0-4) % Baso % (Auto) 0.7 (0-2) % Lymph # (Auto) 1.7 (1.2-4.9) X10*3/uL [place] # (Auto) 0.4 (0.1-1.2) X10*3/uL Eos # (Auto) 0.1 (0.0-0.4) X10*3/uL Baso # (Auto) 0.0 (0.0-0.2) X10*3/uL Abs Immat Gran (auto) 0.01 (0.00-0.03) X10*3/uL Absolute Neuts (auto) 3.6 (2.0-8.3) X10*3/uL Absolute Nucleated RBC 0.000 (0.0-0.012) X10*3/uL Nucleated RBC % (auto) 0.0 (0.0-0.2) /100WBC Sodium (135-145) mmol/L Potassium (3.3-5.1) mmol/L Chloride (96-108) mmol/L Carbon Dioxide (22-29) mmol/L Anion Gap (12-20) BUN (9-16) mg/dL Creatinine (0.5-1.4) mg/dL Estim Creat Clear Calc Estimated GFR Random Glucose (60-115) mg/dL Calcium (8.4-10.2) mg/dL Magnesium (1.6-2.6) mg/dL Total Bilirubin (0.0-1.0) mg/dL Direct Bilirubin (0.0-0.5) mg/dL AST (5-31) U/L ALT (0-31) U/L Alkaline Phosphatase (39-117) U/L Total Protein (6.5-8.0) g/dL Albumin (3.5-5.0) g/dL Lipase (8-78) U/L Urine Color YELLOW Urine Appearance CLEAR Urine pH 6.0 (5.0-8.0) Ur Specific [place] 1.025 (1.005-1.025) Urine Protein NEG (NEG-TRACE) MG/DL Urine Glucose (UA) NEG (NEG) MG/DL Urine Ketones NEG (NEG) MG/DL Urine Blood NEG (NEG) Urine Nitrite NEG (NEG) Ur Leukocyte Esterase NEG (NEG) COVID-19 (JASPREET) Negative (Negative) COVID-19 Clin Com See Note 03/15/21 Range/Units 10:05 WBC (4.8-10.8) X10*3/uL RBC (4.20-5.50) X10*6/uL Hgb (12.0-16.0) g/dl Hct (37-47) % MCV (80-98) fL MCH (27.0-33.0) pg MCHC (31.0-35.0) g/dl RDW (11.0-16.0) % Plt Count (160-400) X10*3/uL MPV (9.4-12.3) fL Immature Gran % (Auto) (0.0-0.4) % Neut % (Auto) (45-73) % Lymph % (Auto) (20-40) % [place] % (Auto) (2-11) % Eos % (Auto) (0-4) % Baso % (Auto) (0-2) % Lymph # (Auto) (1.2-4.9) X10*3/uL [place] # (Auto) (0.1-1.2) X10*3/uL Eos # (Auto) (0.0-0.4) X10*3/uL Baso # (Auto) (0.0-0.2) X10*3/uL Abs Immat Gran (auto) (0.00-0.03) X10*3/uL Absolute Neuts (auto) (2.0-8.3) X10*3/uL Absolute Nucleated RBC (0.0-0.012) X10*3/uL Nucleated RBC % (auto) (0.0-0.2) /100WBC Sodium 141 (135-145) mmol/L Potassium 4.0 (3.3-5.1) mmol/L Chloride 108 (96-108) mmol/L Carbon Dioxide 24 (22-29) mmol/L Anion Gap 13 (12-20) BUN 9 (9-16) mg/dL Creatinine 0.76 (0.5-1.4) mg/dL Estim Creat Clear Calc 106.5 Estimated GFR > 60 Random Glucose 93 (60-115) mg/dL Calcium 9.3 (8.4-10.2) mg/dL Magnesium 1.9 (1.6-2.6) mg/dL Total Bilirubin 0.5 (0.0-1.0) mg/dL Direct Bilirubin 0.2 (0.0-0.5) mg/dL AST 16 (5-31) U/L ALT 18 (0-31) U/L Alkaline Phosphatase 72 (39-117) U/L Total Protein 7.0 (6.5-8.0) g/dL Albumin 4.3 (3.5-5.0) g/dL Lipase 31 (8-78) U/L Urine Color Urine Appearance Urine pH (5.0-8.0) Ur Specific [place] (1.005-1.025) Urine Protein (NEG-TRACE) MG/DL Urine Glucose (UA) (NEG) MG/DL Urine Ketones (NEG) MG/DL Urine Blood (NEG) Urine Nitrite (NEG) Ur Leukocyte Esterase (NEG) COVID-19 (JASPREET) (Negative) COVID-19 Clin Com Discharge Plan Discharge Clinical Impression: Gastroenteritis Patient Disposition: Home, Self-Care Instructions: Gastroenteritis (ED) Additional Instructions: Your lab workup today was normal. Stick to a bland diet while you are not feeling well. Take the prescribed medications. If you develop new or worsening symptoms call 911 or come back to the ER for further evaluation. Prescriptions: New ondansetron 4 mg tablet,disintegrating 4 mg PO Q8H PRN (Reason: nausea and vomiting) Qty: 10 RF: 0 sucralfate [Carafate] 1 gram tablet 1 g PO BID Qty: 14 RF: 0 No Action sennosides [senna] 8.6 mg tablet 2 tab PO DAILY RF: 0 cetirizine 10 mg tablet 1 tab PO DAILY RF: 0 cyanocobalamin (vitamin B-12) 1,000 mcg tablet 1 tab PO DAILY RF: 0 escitalopram oxalate 10 mg tablet 1 tab PO DAILY RF: 0 omeprazole 40 mg capsule,delayed release(DR/EC) 40 mg PO DAILY Qty: 20 RF: 0 PMFSH Past Medical History Medical History Anxiety Asthma Migraine Panic attack Social History Social History Alcohol intake: never Patient Tobacco Use Status: Former Tobacco user Use of substances other than those prescribed or required for medical reasons: No Advance Directives: No Patient : No
[2021-03-15 10:08] LABS: MANUAL DIFF FLAG NO
[2021-03-15 10:12] LABS: Basophils Percent Auto 0.7 % (0-2); Eosinophils Absolute Auto 0.1 X10*3/uL (0.0-0.4); Eosinophils Percent Auto 1.9 % (0-4); Hematocrit 39.3 % (37-47); Imm Gran Abs Auto 0.01 X10*3/uL (0.00-0.03); Imm Gran Pct Auto 0.2 % (0.0-0.4); Lymphocytes Absolute Auto 1.7 X10*3/uL (1.2-4.9); Lymphocytes Percent Auto 29.1 % (20-40); Mean Corpuscular HGB Conc 33.1 g/dl (31.0-35.0); Mean Corpuscular Hemoglobin 27.3 pg (27.0-33.0); Mean Corpuscular Volume 82.6 fL (80-98); Mean Platelet Volume 10.5 fL (9.4-12.3); Monocytes Absolute Auto 0.4 X10*3/uL (0.1-1.2); Monocytes Percent Auto 6.3 % (2-11); Neutrophils Absolute Auto 3.6 X10*3/uL (2.0-8.3); Neutrophils Percent Auto 61.8 % (45-73); Platelet Count 360 X10*3/uL (160-400); Red Blood Count 4.76 X10*6/uL (4.20-5.50); Red Cell Distribution Width 13.7 % (11.0-16.0); White Blood Count 5.9 X10*3/uL (4.8-10.8)
[2021-03-15] MEDS: PHENobarb/Hyoscy/Atropine/Scop 10 ML ELIXIR PO (10:12)
[2021-03-15] MEDS: Lidocaine HCl Viscous 2 % 15 ML SOLUTION MUCOUS MEM (10:14)
[2021-03-15] MEDS: Magnesium Hydrox/Alum Hydrox 30 ML ORAL.SUSP PO (10:14)
[2021-03-15 12:00] VITALS: BP 114/76; PULSE 53; RESP 18; TEMP 36.7; O2SAT 99
--- NOTE | 2021-03-15 12:22 | PC.NURSE ---
patient a&ox3, sitting in chair, patient c/o mid abd pain to umbilicus area, also diarrhea which she states she just had an episode of, pt was previously medicated by lore with gi cocktail without relief, will notify provider, vsana maria, will continue to monitor
[2021-03-15 12:28] LABS: Alanine Aminotransferase 18 U/L (0-31); Albumin Level 4.3 g/dL (3.5-5.0); Alkaline Phosphatase 72 U/L (39-117); Anion Gap 13 (12-20); Aspartate Amino Transferase 16 U/L (5-31); Bilirubin Direct 0.2 mg/dL (0.0-0.5); Bilirubin Total 0.5 mg/dL (0.0-1.0); Blood Urea Nitrogen 9 mg/dL (9-16); Calcium 9.3 mg/dL (8.4-10.2); Carbon Dioxide 24 mmol/L (22-29); Chloride 108 mmol/L (96-108); Creatinine Clr Calc Pharmacy 106.5; Estimated Glomerular Filt Rate > 60; Glucose Random 93 mg/dL (60-115); Lipase 31 U/L (8-78); Magnesium 1.9 mg/dL (1.6-2.6); Sodium 141 mmol/L (135-145)
[2021-03-15] MEDS: Calcium Carbonate 750 MG TAB.CHEW 1500 MG PO (12:37)
[2021-03-15] MEDS: Ketorolac Tromethamine 15 MG/ML VIAL 30 MG IM (12:37)
--- NOTE | 2021-03-15 12:37 | PC.NURSE ---
pt medicated per order
--- NOTE | 2021-03-15 12:42 | PC.NURSE ---
patient currently sleeping, rr 18, will continue to monitor.
== END 2021-03-15 13:05 | disposition home or self-care (01) ==
PROVIDERS: Physician Assistant; Emergency Provider Emergency Medicine
DX: K52.9 Noninfective gastroenteritis and colitis, unspecified (principal); R10.12 Left upper quadrant pain; Z87.891 Personal history of nicotine dependence; Z79.899 Other long term (current) drug therapy; Z20.822 Contact with and (suspected) exposure to COVID-19
CPT/HCPCS: 36415; 80048; 80076; 81003; 83690; 83735; 85025; 87635; 96372; 99284; J1885

== ENCOUNTER → 2021-05-17 13:26 | Outpatient (BNVA) | payer MEDICAID, SELFPAY | PROVIDERS: Visit Provider Surgery | DX: K42.9 Umbilical hernia without obstruction or gangrene (principal) | CPT/HCPCS: 99202 ==

== ENCOUNTER 2021-06-21 12:40 | Outpatient (REF) | payer MEDICAID, SELFPAY ==
[2021-06-21 15:48] LABS: Binax Internal Control QC Valid; Binax Now Covid-19 Ag Negative (Negative)
== END 2021-06-21 12:41 | disposition home or self-care (01) ==
LOC: HO.LAB 12:40
PROVIDERS: Visit Provider Internal Medicine
DX: Z20.822 Contact with and (suspected) exposure to COVID-19 (principal)
CPT/HCPCS: C9803

== ENCOUNTER 2021-06-30 18:04 | Emergency (ER) | payer MEDICAID, SELFPAY ==
[2021-06-30 18:37] VITALS: BP 110/65; BP 123/76; PULSE 104; PULSE 89; RESP 18; TEMP 37.9; O2SAT 100; O2SAT 98; BMI 31.8
--- NOTE | 2021-06-30 18:52 | ED_ITS ---
HPI - General Adult General Chief complaint: Nausea/Vomiting/Diarrhea Stated complaint: abd/n/v/d Time Seen by Provider: 06/30/21 18:40 Source: patient Mode of arrival: ambulatory Limitations: no limitations History of Present Illness HPI narrative: Patient comes to emergency room complaining of 3 days of nausea vomiting and diarrhea, headache. Patient states that 2 days ago she tested positive for COVID-19 with a home test kit. Patient is on vaccinated for COVID. Patient states her son also tested positive for COVID. Patient denies abdominal pain, no UTI symptoms, no shortness of breath, no chest pain. Related Data Home Medications Medication Instructions Recorded Confirmed cetirizine 10 mg tablet 1 tab PO DAILY 10/29/20 06/20/21 cyanocobalamin (vitamin B-12) 1 tab PO DAILY 10/29/20 06/20/21 1,000 mcg tablet escitalopram oxalate 10 mg tablet 1 tab PO DAILY 10/29/20 06/20/21 sennosides 8.6 mg tablet (senna) 2 tab PO DAILY 10/29/20 06/20/21 Previous Rx's Medication Instructions Recorded omeprazole 40 mg capsule,delayed 40 mg PO DAILY #20 cap 03/28/20 release ondansetron 4 mg disintegrating 4 mg PO Q8H PRN #10 tab 03/15/21 tablet sucralfate 1 gram tablet (Carafate) 1 g PO BID #14 tab 03/15/21 loperamide 2 mg tablet 2 mg PO Q4H PRN #10 tab 06/30/21 ondansetron 4 mg disintegrating 4 mg PO Q6H PRN #10 tab 06/30/21 tablet Allergies Allergy/AdvReac Type Severity Reaction Status Date / Time Iodinated Contrast Media Allergy Swelling Verified 06/30/21 18:37 Review of Systems Review of Systems: Constitutional : No Weight loss, No Fever, No Chills, No Night Sweats, No Fatigue, No Malaise ENT/Mouth : No Hearing loss, No Ear Pain, No Nasal Congestion, No Sinus Pain, No Hoarseness, No sore throat, No Rhinorrhea, No Swallowing Difficulty Eyes: No Eye Pain, No Swelling, No Redness, No Foreign Body, No Discharge, No Vision Changes Cardiovascular : No Chest Pain, No SOB, No Dyspnea on Exertion, No Orthopnea, No Edema, No Palpitations Respiratory : Dry Cough, No Sputum, No Wheezing, No Smoke Exposure, No Dyspnea Gastrointestinal : Complaining of nausea vomiting and diarrhea. No Constipation, No abdominal Pain, No Hematochezia, No Melena Genitourinary : no irregular bleeding, No Dysuria, No Urinary Frequency, No Hematuria, No Urinary Incontinence, No Urgency, No Flank Pain, No Urinary Flow Changes, No Hesitancy Musculoskeletal : No joint pain, No Myalgias, No Joint Swelling Skin : No Skin Lesions, No rash Neuro : No Weakness, No Numbness, No Paresthesias, No Loss of Consciousness, No Dizziness, No Headache Psych : No Anxiety/Panic, No Depression, No SI/HI/AH/VH, No Social Issues, Heme/Lymph: No Bruising, No Bleeding,No Lymphadenopathy Endocrine : No Polyuria, No Polydipsia, No Temperature Intolerance [facility] Past Medical History Medical History Anxiety Asthma Migraine Panic attack Family History Family History Maternal Grandfather Skin cancer Paternal Grandmother Colon cancer Social History Social History Alcohol intake: never Patient Tobacco Use Status: Former Tobacco user Tobacco use type: Cigarette Advance Directives: No Advance Directives Information Provided: No Patient : No Physical Exam Vital Signs: Vital Signs: Last Vital Signs Temp 100.3 F 06/30/21 18:37 Pulse 89 06/30/21 18:37 Resp 18 06/30/21 18:37 BP 123/76 06/30/21 18:37 Pulse Ox 100 06/30/21 18:37 BMI result Body Mass Index 31.8 Const: Other: Appearance: Alert. Oriented X3. No acute distress. Eyes: Pupils equal, round and reactive to light. ENT: Pharynx normal. Neck: Normal inspection. Neck supple. No lymph nodes noted. No crepitus CVS: Normal heart rate and rhythm. Pulses normal. Normal S1 and S2 Respiratory: No respiratory distress. Breath sounds normal. No Wheezing. No rales Abdomen: Soft and nontender. No rigidity. No distention. Skin: Skin warm and dry. Normal skin color. Normal skin turgor. Extremities: No lower extremity edema. No Lacerations. No Rash Neuro: Oriented X 3. No motor deficit. No sensory deficit. Moving all extermities. No slurred speech. Course Course Course Narrative: I discussed the labs and imaging with the patient. Patient tested negative for COVID-19. It may be a false negative, or she may be at the end of her COVID illness. Patient will be discharged home with medications for nausea vomiting and diarrhea. Patient instructed to drink fluids with electrolytes. Medical Decision Making Lab Data Result diagrams: 06/30/21 19:31 06/30/21 19:31 Labs: Lab Results 06/30/21 06/30/21 06/30/21 Range/Units 19:31 19:31 19:31 WBC 3.2 L (4.8-10.8) X10*3/uL RBC 4.95 (4.20-5.50) X10*6/uL Hgb 13.1 (12.0-16.0) g/dl Hct 40.9 (37.0-47.0) % MCV 82.6 (80.0-98.0) fL MCH 26.5 L (27.0-33.0) pg MCHC 32.0 (31.0-35.0) g/dl RDW 14.2 (11.0-16.0) % Plt Count 201 (160-400) X10*3/uL MPV 10.9 (9.4-12.3) fL Immature Gran % (Auto) 0.6 H (0.0-0.4) % Neut % (Auto) 63.0 (45-73) % Lymph % (Auto) 29.9 (20-40) % [place] % (Auto) 6.2 (2-11) % Eos % (Auto) 0.0 (0-4) % Baso % (Auto) 0.3 (0-2) % Lymph # (Auto) 1.0 L (1.2-4.9) X10*3/uL [place] # (Auto) 0.2 (0.1-1.2) X10*3/uL Eos # (Auto) 0.0 (0.0-0.4) X10*3/uL Baso # (Auto) 0.0 (0.0-0.2) X10*3/uL Abs Immat Gran (auto) 0.02 (0.00-0.03) X10*3/uL Absolute Neuts (auto) 2.0 (2.0-8.3) x10*3/uL Absolute Nucleated RBC 0.000 (0.0-0.012) X10*3/uL Nucleated RBC % (auto) 0.0 (0.0-0.2) /100WBC Sodium 138 (135-145) mmol/L Potassium 4.1 (3.3-5.1) mmol/L Chloride 105 (96-108) mmol/L Carbon Dioxide 24 (22-29) mmol/L Anion Gap 13 (12-20) BUN 5 L (9-16) mg/dL Creatinine 0.84 (0.5-1.4) mg/dL Estim Creat Clear Calc 96.4 Estimated GFR > 60 Random Glucose 98 (60-115) mg/dL Calcium 9.0 (8.4-10.2) mg/dL Total Bilirubin 0.4 (0.0-1.0) mg/dL Direct Bilirubin < 0.2 (0.0-0.5) mg/dL AST 32 H D (5-31) U/L ALT 22 (0-31) U/L Alkaline Phosphatase 70 (39-117) U/L Total Protein 7.0 (6.5-8.0) g/dL Albumin 3.9 (3.5-5.0) g/dL COVID-19 (JASPREET) Negative (Negative) COVID-19 Clin Com See Note Discharge Plan Discharge Clinical Impression: Nausea vomiting and diarrhea, Viral illness Patient Disposition: Home, Self-Care Instructions: Acute Nausea and Vomiting (ED) Additional Instructions: Please follow-up with your primary care physician tomorrow. If you have any worsening or new symptoms, please return to the emergency room or call 911 Prescriptions: New ondansetron 4 mg tablet,disintegrating 4 mg PO Q6H PRN (Reason: nausea and vomiting) Qty: 10 RF: 0 loperamide 2 mg tablet 2 mg PO Q4H PRN (Reason: loose stool) Qty: 10 RF: 0 No Action sennosides [senna] 8.6 mg tablet 2 tab PO DAILY RF: 0 cetirizine 10 mg tablet 1 tab PO DAILY RF: 0 cyanocobalamin (vitamin B-12) 1,000 mcg tablet 1 tab PO DAILY RF: 0 escitalopram oxalate 10 mg tablet 1 tab PO DAILY RF: 0 omeprazole 40 mg capsule,delayed release(DR/EC) 40 mg PO DAILY Qty: 20 RF: 0 ondansetron 4 mg tablet,disintegrating 4 mg PO Q8H PRN (Reason: nausea and vomiting) Qty: 10 RF: 0 sucralfate [Carafate] 1 gram tablet 1 g PO BID Qty: 14 RF: 0
[2021-06-30] MEDS: Ketorolac Tromethamine 30 MG/ML VIAL IVPUSH (19:34)
[2021-06-30] MEDS: Loperamide HCl 2 MG CAPSULE 4 MG PO (19:34)
[2021-06-30] MEDS: 0.9 % Sodium Chloride 1,000 ML 999 ML IVCONT (19:34)
[2021-06-30 19:35] LABS: MANUAL DIFF FLAG NO
[2021-06-30] MEDS: ondansetron HCL 4 MG/2 ML VIAL IVPUSH (19:35)
[2021-06-30 19:49] LABS: Basophils Percent Auto 0.3 % (0-2); Hematocrit 40.9 % (37.0-47.0); Hemoglobin 13.1 g/dl (12.0-16.0); Imm Gran Abs Auto 0.02 X10*3/uL (0.00-0.03); Imm Gran Pct Auto 0.6 % (0.0-0.4); Lymphocytes Percent Auto 29.9 % (20-40); Mean Corpuscular Hemoglobin 26.5 pg (27.0-33.0); Mean Corpuscular Volume 82.6 fL (80.0-98.0); Mean Platelet Volume 10.9 fL (9.4-12.3); Monocytes Absolute Auto 0.2 X10*3/uL (0.1-1.2); Monocytes Percent Auto 6.2 % (2-11); Platelet Count 201 X10*3/uL (160-400); Red Blood Count 4.95 X10*6/uL (4.20-5.50); Red Cell Distribution Width 14.2 % (11.0-16.0); White Blood Count 3.2 X10*3/uL (4.8-10.8)
[2021-06-30 19:53] LABS: Alanine Aminotransferase 22 U/L (0-31); Albumin Level 3.9 g/dL (3.5-5.0); Alkaline Phosphatase 70 U/L (39-117); Anion Gap 13 (12-20); Aspartate Amino Transferase 32 U/L (5-31); Bilirubin Direct < 0.2 mg/dL (0.0-0.5); Bilirubin Total 0.4 mg/dL (0.0-1.0); Blood Urea Nitrogen 5 mg/dL (9-16); Carbon Dioxide 24 mmol/L (22-29); Chloride 105 mmol/L (96-108); Creatinine Clr Calc Pharmacy 96.4; Estimated Glomerular Filt Rate > 60; Glucose Random 98 mg/dL (60-115); Potassium 4.1 mmol/L (3.3-5.1); Sodium 138 mmol/L (135-145)
[2021-06-30 19:54] LABS: COVID-19 Test Negative (Negative)
== END 2021-06-30 20:32 | disposition home or self-care (01) ==
PROVIDERS: Emergency Provider Emergency Medicine
DX: B34.9 Viral infection, unspecified (principal); R11.2 Nausea with vomiting, unspecified; R19.7 Diarrhea, unspecified; Z20.822 Contact with and (suspected) exposure to COVID-19
CPT/HCPCS: 36415; 80048; 80076; 85025; 87635; 96361; 96374; 96375; 99283; 99284; J1885; J2405

== ENCOUNTER 2021-07-04 02:17 | Emergency (ER) | payer MEDICAID, SELFPAY ==
--- NOTE | ~2021-07-04 | US_ITS ---
EXAMINATION: US ABDOMEN LIMITED CLINICAL INFORMATION: Abnormal liver enzymes.. COMPARISON: None TECHNIQUE: Real-time imaging of the right upper quadrant abdominal viscera. FINDINGS: PANCREAS: Normal. LIVER: Normal. The liver is normal in size. The liver contour is normal. Parenchymal echogenicity is normal. No focal hepatic lesion. There is no intrahepatic biliary duct dilatation seen. GALLBLADDER: Normal. The gallbladder is physiologically distended without evidence of stones, sludge, polyps, wall thickening or pericholecystic fluid. COMMON BILE DUCT: Normal in caliber measuring 0.3 cm in diameter. RIGHT KIDNEY: Normal. No hydronephrosis. No renal calculi or focal parenchymal lesions. The kidney measures 9.4 cm in maximum dimension. FREE FLUID: None. US/US abdomen limited IMPRESSION: Unremarkable Limited abdominal ultrasound.
[2021-07-04 02:19] VITALS: BP 110/88; PULSE 76; O2SAT 98
[2021-07-04 02:22] VITALS: BP 112/64; PULSE 69; RESP 16; TEMP 36.4; O2SAT 98; BMI 30.9
--- NOTE | 2021-07-04 04:07 | PC.NURSE ---
pt called into triage to obtain covid swab with no answer at this time.
--- NOTE | 2021-07-04 07:54 | ED.NAVMDI ---
HPI - Nausea/Vomiting/Diarrhea General Chief complaint: Nausea/Vomiting/Diarrhea Stated complaint: N/V [id number] Time Seen by Provider: 07/04/21 03:51 Source: patient Mode of arrival: ambulatory Limitations: no limitations History of Present Illness HPI Narrative: patient with nausea and vomiting for 2 days. No fever, has been sweating. Patient is not vaccinated MD elicited complaint: nausea, vomiting and diarrhea Onset (ago): day(s) Associated nausea: Yes Associated abdominal pain: Yes Pain consistency: intermittent Quality: cramping Associated symptoms: denies other symptoms Related Data Home Medications Medication Instructions Recorded Confirmed cetirizine 10 mg tablet 1 tab PO DAILY 10/29/20 06/20/21 cyanocobalamin (vitamin B-12) 1 tab PO DAILY 10/29/20 06/20/21 1,000 mcg tablet escitalopram oxalate 10 mg tablet 1 tab PO DAILY 10/29/20 06/20/21 sennosides 8.6 mg tablet (senna) 2 tab PO DAILY 10/29/20 06/20/21 Previous Rx's Medication Instructions Recorded omeprazole 40 mg capsule,delayed 40 mg PO DAILY #20 cap 03/28/20 release ondansetron 4 mg disintegrating 4 mg PO Q8H PRN #10 tab 03/15/21 tablet sucralfate 1 gram tablet (Carafate) 1 g PO BID #14 tab 03/15/21 loperamide 2 mg tablet 2 mg PO Q4H PRN #10 tab 06/30/21 ondansetron 4 mg disintegrating 4 mg PO Q6H PRN #10 tab 06/30/21 tablet Allergies Allergy/AdvReac Type Severity Reaction Status Date / Time Iodinated Contrast Media Allergy Swelling Verified 07/04/21 02:27 Review of Systems Constitutional: Constitutional: Reports no additional constitutional complaints Eyes: Eyes: Reports no additional eye complaints ENT: Denies dizziness Cardiovascular: Cardiovascular: Reports no additional cardiovascular complaints Respiratory: Respiratory: Reports as per HPI Gastrointestinal: Gastrointestinal: Reports nausea Genitourinary: Genitourinary: Reports no additional female genitourinary complaints Musculoskeletal: Musculoskeletal: Reports no additional musculoskeletal complaints Integumentary/Breasts: Skin/Breast: Denies rash Neurologic: Reports system reviewed and no additional complaints, except as documented, Denies dizziness and Denies Sensory deficit (Neuro) Psychiatric: Psychiatric: Denies anxiety PMFSH Past Medical History Medical History Anxiety Asthma COVID Migraine Panic attack Family History Family History Maternal Grandfather Skin cancer Paternal Grandmother Colon cancer Social History Social History Alcohol intake: never Patient Tobacco Use Status: Former Tobacco user Tobacco use type: Cigarette Advance Directives: No Patient : No Physical Exam Vital Signs: Vital Signs: Last Vital Signs Temp 98 F 07/04/21 09:08 Pulse 75 07/04/21 09:08 Resp 19 07/04/21 09:08 BP 115/76 07/04/21 09:08 Pulse Ox 99 07/04/21 09:08 BMI result Body Mass Index 30.9 Const: General: healthy appearing Nutritional Appearance: average body habitus Orientation/consciousness: oriented to person and patient oriented x3 Limitations: no limitations HENMT: Head: Yes normal to inspection Ears: external ears normal General nose exam: Normal external nose present Mouth: Normal oral and palatal mucosa present and oropharynx normal Throat: Yes posterior oropharynx normal Eyes: General: appearance normal, both eyes and all related structures Neck: Other: supple Neck: Yes normal visual inspection Chest: Chest palpation & inspection: normal inspection of the chest Resp: Auscultation: clear to auscultation bilaterally Cardio: Jugular venous distension: no JVD Rate: regular rate Rhythm: regular rhythm Heart sounds: S1 normal heart sound present and S2 normal heart sound present GI: Inspection: Yes normal to inspection Palpation (GI): Soft to palpation, nontender and No hepatosplenomegaly present Auscultation: normal bowel sounds : General: Yes no CVA tenderness Back/Spine/Pelvis: Back: no CVA tenderness Skin: General skin exam: no rashes or lesions noted Neuro: General: oriented to person and patient oriented x3 Cranial nerves: Yes CN's II-XII intact bilaterally Motor exam (neuro): 5/5 motor strength present throughout Sensory Exam: No Sensory deficit (Neuro) Extrem: General: Yes normal to inspection Psych: Appearance: grossly normal Course Reevaluation(s) Reevaluation #1: Patient with mild elevation of liver enzymes, ultrasound is negative, no other acute findings will dc home Time: 10:38 MDM - Nausea/Vomiting/Diarrhea Lab Data Result diagrams: 07/04/21 08:00 07/04/21 08:00 Labs: Lab Results 07/04/21 07/04/21 07/04/21 Range/Units 07:54 07:54 07:54 WBC (4.8-10.8) X10*3/uL RBC (4.20-5.50) X10*6/uL Hgb (12.0-16.0) g/dl Hct (37.0-47.0) % MCV (80.0-98.0) fL MCH (27.0-33.0) pg MCHC (31.0-35.0) g/dl RDW (11.0-16.0) % Plt Count (160-400) X10*3/uL MPV (9.4-12.3) fL Immature Gran % (Auto) (0.0-0.4) % Neut % (Auto) (45-73) % Lymph % (Auto) (20-40) % [place] % (Auto) (2-11) % Eos % (Auto) (0-4) % Baso % (Auto) (0-2) % Lymph # (Auto) (1.2-4.9) X10*3/uL [place] # (Auto) (0.1-1.2) X10*3/uL Eos # (Auto) (0.0-0.4) X10*3/uL Baso # (Auto) (0.0-0.2) X10*3/uL Abs Immat Gran (auto) (0.00-0.03) X10*3/uL Absolute Neuts (auto) (2.0-8.3) x10*3/uL Absolute Nucleated RBC (0.0-0.012) X10*3/uL Nucleated RBC % (auto) (0.0-0.2) /100WBC Sodium (135-145) mmol/L Potassium (3.3-5.1) mmol/L Chloride (96-108) mmol/L Carbon Dioxide (22-29) mmol/L Anion Gap (12-20) BUN (9-16) mg/dL Creatinine (0.5-1.4) mg/dL Estim Creat Clear Calc Estimated GFR Random Glucose (60-115) mg/dL Calcium (8.4-10.2) mg/dL Total Bilirubin (0.0-1.0) mg/dL Direct Bilirubin (0.0-0.5) mg/dL AST (5-31) U/L ALT (0-31) U/L Alkaline Phosphatase (39-117) U/L Total Protein (6.5-8.0) g/dL Albumin (3.5-5.0) g/dL Lipase (8-78) U/L Urine Color YELLOW Urine Appearance HAZY Urine pH 7.0 (5.0-8.0) Ur Specific [place] 1.015 (1.005-1.025) Urine Protein 1+ H (NEG-TRACE) MG/DL Urine Glucose (UA) NEG (NEG) MG/DL Urine Ketones NEG (NEG) MG/DL Urine Blood 3+ H (NEG) Urine Nitrite NEG (NEG) Ur Leukocyte Esterase NEG (NEG) Urine RBC 10-14 H (0) /HPF Urine WBC 1-4 (0-4) /HPF Ur Squamous Epith Cells 1+ /LPF Urine Bacteria 1+ /LPF Urine Test NEGATIVE (NEGATIVE) COVID-19 (JASPREET) Negative (Negative) COVID-19 Clin Com See Note Monoscreen (Negative) 07/04/21 07/04/21 07/04/21 Range/Units 08:00 08:00 Unknown WBC 3.9 L (4.8-10.8) X10*3/uL RBC 4.65 (4.20-5.50) X10*6/uL Hgb 12.5 (12.0-16.0) g/dl Hct 38.5 (37.0-47.0) % MCV 82.8 (80.0-98.0) fL MCH 26.9 L (27.0-33.0) pg MCHC 32.5 (31.0-35.0) g/dl RDW 13.9 (11.0-16.0) % Plt Count 302 D (160-400) X10*3/uL MPV 9.9 (9.4-12.3) fL Immature Gran % (Auto) 0.3 (0.0-0.4) % Neut % (Auto) 71.1 (45-73) % Lymph % (Auto) 20.8 (20-40) % [place] % (Auto) 7.0 (2-11) % Eos % (Auto) 0.8 (0-4) % Baso % (Auto) 0.0 (0-2) % Lymph # (Auto) 0.8 L (1.2-4.9) X10*3/uL [place] # (Auto) 0.3 (0.1-1.2) X10*3/uL Eos # (Auto) 0.0 (0.0-0.4) X10*3/uL Baso # (Auto) 0.0 (0.0-0.2) X10*3/uL Abs Immat Gran (auto) 0.01 (0.00-0.03) X10*3/uL Absolute Neuts (auto) 2.7 (2.0-8.3) x10*3/uL Absolute Nucleated RBC 0.000 (0.0-0.012) X10*3/uL Nucleated RBC % (auto) 0.0 (0.0-0.2) /100WBC Sodium 141 (135-145) mmol/L Potassium 4.0 (3.3-5.1) mmol/L Chloride 106 (96-108) mmol/L Carbon Dioxide 28 (22-29) mmol/L Anion Gap 11 L (12-20) BUN 7 L (9-16) mg/dL Creatinine 0.76 (0.5-1.4) mg/dL Estim Creat Clear Calc 105.0 Estimated GFR > 60 Random Glucose 102 (60-115) mg/dL Calcium 9.2 (8.4-10.2) mg/dL Total Bilirubin 0.4 (0.0-1.0) mg/dL Direct Bilirubin 0.2 (0.0-0.5) mg/dL AST 160 H (5-31) U/L ALT 157 H (0-31) U/L Alkaline Phosphatase 96 D (39-117) U/L Total Protein 7.2 (6.5-8.0) g/dL Albumin 4.0 (3.5-5.0) g/dL Lipase 35 (8-78) U/L Urine Color Urine Appearance Urine pH (5.0-8.0) Ur Specific [place] (1.005-1.025) Urine Protein (NEG-TRACE) MG/DL Urine Glucose (UA) (NEG) MG/DL Urine Ketones (NEG) MG/DL Urine Blood (NEG) Urine Nitrite (NEG) Ur Leukocyte Esterase (NEG) Urine RBC (0) /HPF Urine WBC (0-4) /HPF Ur Squamous Epith Cells /LPF Urine Bacteria /LPF Urine Test (NEGATIVE) COVID-19 (JASPREET) (Negative) COVID-19 Clin Com Monoscreen Negative (Negative) Imaging Data liver ultrasound: Radiologist's impression: IMPRESSION: Unremarkable? Limited abdominal ultrasound. Discharge Plan Discharge Clinical Impression: Abnormal liver enzymes Nausea & vomiting Qualifiers: Vomiting type: unspecified Qualified Code(s): R11.2 - Nausea with vomiting, unspecified Patient Disposition: Home, Self-Care Instructions: Acute Nausea and Vomiting (ED) Prescriptions: No Action sennosides [senna] 8.6 mg tablet 2 tab PO DAILY RF: 0 cetirizine 10 mg tablet 1 tab PO DAILY RF: 0 cyanocobalamin (vitamin B-12) 1,000 mcg tablet 1 tab PO DAILY RF: 0 escitalopram oxalate 10 mg tablet 1 tab PO DAILY RF: 0 omeprazole 40 mg capsule,delayed release(DR/EC) 40 mg PO DAILY Qty: 20 RF: 0 ondansetron 4 mg tablet,disintegrating 4 mg PO Q6H PRN (Reason: nausea and vomiting) Qty: 10 RF: 0 loperamide 2 mg tablet 2 mg PO Q4H PRN (Reason: loose stool) Qty: 10 RF: 0 ondansetron 4 mg tablet,disintegrating 4 mg PO Q8H PRN (Reason: nausea and vomiting) Qty: 10 RF: 0 sucralfate [Carafate] 1 gram tablet 1 g PO BID Qty: 14 RF: 0 Referrals: Physician,Unknown J [Primary Care Provider] - 5 days
[2021-07-04 08:02] LABS: Appearance Urine HAZY; Color Urine YELLOW; Glucose Urine UA NEG (NEG); Leukocyte Esterase Urine NEG (NEG); Nitrite Urine NEG (NEG); Specific Gravity - Urine 1.015 (1.005-1.025); UACC Culture Trigger NO; Urine Blood 3+ (NEG); Urine Ketones NEG (NEG); Urine Protein 1+ MG/DL (NEG-TRACE)
[2021-07-04] MEDS: 0.9 % Sodium Chloride 1,000 ML 999 ML IVCONT ×2 (08:05→09:06)
[2021-07-04] MEDS: Pantoprazole Sodium 40 MG/10 ML VIAL IVPUSH (08:05)
[2021-07-04] MEDS: ondansetron HCL 4 MG/2 ML VIAL IVPUSH (08:05)
[2021-07-04 08:08] LABS: Eosinophils Percent Auto 0.8 % (0-4); Hematocrit 38.5 % (37.0-47.0); Hemoglobin 12.5 g/dl (12.0-16.0); Imm Gran Abs Auto 0.01 X10*3/uL (0.00-0.03); Imm Gran Pct Auto 0.3 % (0.0-0.4); Lymphocytes Absolute Auto 0.8 X10*3/uL (1.2-4.9); Lymphocytes Percent Auto 20.8 % (20-40); MANUAL DIFF FLAG NO; Mean Corpuscular HGB Conc 32.5 g/dl (31.0-35.0); Mean Corpuscular Hemoglobin 26.9 pg (27.0-33.0); Mean Corpuscular Volume 82.8 fL (80.0-98.0); Mean Platelet Volume 9.9 fL (9.4-12.3); Monocytes Absolute Auto 0.3 X10*3/uL (0.1-1.2); Neutrophils Absolute Auto 2.7 x10*3/uL (2.0-8.3); Neutrophils Percent Auto 71.1 % (45-73); Platelet Count 302 X10*3/uL (160-400); Red Blood Count 4.65 X10*6/uL (4.20-5.50); Red Cell Distribution Width 13.9 % (11.0-16.0); White Blood Count 3.9 X10*3/uL (4.8-10.8)
[2021-07-04 08:19] LABS: COVID-19 Test Negative (Negative)
[2021-07-04 08:22] LABS: Bacteria Urine 1+ /LPF; Squamous Epithelial Cell Urine 1+ /LPF
[2021-07-04 08:37] LABS: Alanine Aminotransferase 157 U/L (0-31); Alkaline Phosphatase 96 U/L (39-117); Anion Gap 11 (12-20); Aspartate Amino Transferase 160 U/L (5-31); Bilirubin Direct 0.2 mg/dL (0.0-0.5); Bilirubin Total 0.4 mg/dL (0.0-1.0); Blood Urea Nitrogen 7 mg/dL (9-16); Calcium 9.2 mg/dL (8.4-10.2); Carbon Dioxide 28 mmol/L (22-29); Chloride 106 mmol/L (96-108); Estimated Glomerular Filt Rate > 60; Glucose Random 102 mg/dL (60-115); Lipase 35 U/L (8-78); Sodium 141 mmol/L (135-145); Total Protein 7.2 g/dL (6.5-8.0)
[2021-07-04 08:47] LABS: UPreg QC Valid YES; Urine Pregnancy NEGATIVE (NEGATIVE)
[2021-07-04 09:08] VITALS: BP 115/76; PULSE 75; RESP 19; TEMP 36.6; O2SAT 99
[2021-07-04 09:17] LABS: Monotest Negative (Negative)
[2021-07-04 10:13] LABS: HBS Num1 98.73 mIU/mL (0-7.99); HBc Num1 0.07 S/CO (0.00-0.79); Hepatitis B Core Antibody Nonreactive (Nonreactive); Hepatitis B Surface Antigen Negative (Negative); ~HepC Num1 0.17 S/CO (0.00-0.79); ~Hepatitis B Surface Antibody REACTIVE (Nonreactive); ~Hepatitis C Antibody Nonreactive (Nonreactive)
--- NOTE | 2021-07-04 11:50 | PC.NURSE ---
attempted to medicate with phengan prior to depature, pt left post d/c
[2021-07-06 07:22] LABS: Hepatitis A Antibody IgM 0.22 Index (0-0.79); ~Hepatitis A Antibody IgM Nonreactive (Nonreactive)
== END 2021-07-04 11:51 | disposition home or self-care (01) ==
PROVIDERS: Student in an Organized Health Care Education/Training Program; Emergency Provider Emergency Medicine
DX: R74.8 Abnormal levels of other serum enzymes (principal); R11.2 Nausea with vomiting, unspecified; Z20.822 Contact with and (suspected) exposure to COVID-19
CPT/HCPCS: 36415; 76705; 80048; 80076; 81001; 81003; 81025; 83690; 85025; 86308; 86704; 86706; 86709; 86803; 87340; 87635; 96361; 96374; 96375; 99283; 99284; J2405

== ENCOUNTER → 2021-07-20 07:47 | Day surgery (SDC) | payer MEDICAID, SELFPAY ==
[2021-06-20 14:02] VITALS: BMI 31.6
--- NOTE | 2021-07-19 09:31 | P.CONAN_ITS ---
Documented by User: Kylah Pink NP 07/19/21 09:32 HPI - Anesthesia Eval Consult details Narrative: 31yo F for Hernia Repair Umbilical with Mesh PMFSH Active Problems Active Problems: All Active Problems (Updated 07/05/21 @ 00:01 by Mesha Soriano) Umbilical hernia (Acute) Past Medical History Medical History (Updated 07/20/21 @ 07:52 by Shania Zepeda RN) Anxiety Asthma COVID Migraine Palpitations Panic attack Family History Family History Maternal Grandfather Skin cancer Paternal Grandmother Colon cancer Surgical History Surgical History (Updated 07/20/21 @ 07:54 by Shania Zepeda RN) H/O dilation and curettage Social History Social History Alcohol intake: never Patient Tobacco Use Status: Former Tobacco user Tobacco use type: Cigarette Advance Directives: No (unknown) Advance Directives Information Provided: Yes Advance Directives on File: No Meds Allergies Allergy/AdvReac Type Severity Reaction Status Date / Time Iodinated Contrast Media Allergy Swelling Verified 07/20/21 07:54 Home Medications Medication Instructions Recorded Confirmed Last Taken Type cetirizine 10 mg tablet 1 tab PO DAILY 10/29/20 06/20/21 Unknown History cyanocobalamin (vitamin B-12) 1 tab PO DAILY 10/29/20 06/20/21 Unknown History 1,000 mcg tablet escitalopram oxalate 10 mg tablet 1 tab PO DAILY 10/29/20 06/20/21 Unknown History sennosides 8.6 mg tablet (senna) 2 tab PO DAILY 10/29/20 06/20/21 Unknown Hi story albuterol sulfate 90 mcg/actuation 2 puff PO Q4H PRN 07/20/21 07/20/21 Unknown History aerosol inhaler (ProAir HFA) fluticasone propionate 110 1 puff PO BID 07/20/21 07/20/21 Unknown History mcg/actuation HFA aerosol inhaler (Flovent HFA) sumatriptan succinate 50 mg tablet mg PO 07/20/21 Unknown History topiramate 100 mg tablet 1 tab PO DAILY 07/20/21 07/20/21 Unknown History verapamil 360 mg 24 hr 1 cap PO DAILY 07/20/21 07/20/21 Unknown History capsule,extended release Exam Exam Date and Time: July 19, [id number] Height,Weight and Vital Signs: Height 5 ft 3 in Weight 81.193 kg Pertinent Lab Results Pertinent Lab Results: Laboratory Tests 07/04/21 07/04/21 08:00 08:00 WBC 3.9 L Hgb 12.5 Hct 38.5 Plt Count 302 D Sodium 141 Potassium 4.0 Chloride 106 Carbon Dioxide 28 BUN 7 L Creatinine 0.76 Narrative Narrative: EKG 01/2021 Vent. Rate : 083 BPM ? ? Atrial Rate : 083 BPM ?? P-R Int : 106 ms? QRS Dur : 088 ms ? ? QT Int : 438 ms ? ? ? P-R-T Axes : 058 048 063 degrees ?? QTc Int : 514 ms ? Sinus rhythm with short MN with frequent Premature ventricular complexes Nonspecific T wave abnormality Prolonged QT Abnormal ECG When compared with ECG of 30-NOV-2020 13:00, No significant change was found Assessment and Plan Assessment Anesthesia Assessment: Chart Reviewed Documented by User: Enrico Escobedo 07/20/21 09:15 HPI - Anesthesia Eval Consult details Narrative: 31yo F for Hernia Repair Umbilical with Mesh patient with recent visit to ED with GI symptoms and elevated liver enzymes , also tested positive for COVID , 2 days prior to that, patient also having palpitaions . Since it is a purely elective case , it will be rescheduled once patient is optimized . Patient will see PCP. [facility] Past Medical History Medical History (Updated 07/20/21 @ 07:52 by Shania Zepeda RN) Anxiety Asthma COVID Migraine Palpitations Panic attack Family History Family History Maternal Grandfather Skin cancer Paternal Grandmother Colon cancer Surgical History Surgical History (Updated 07/20/21 @ 07:54 by Shania Zepeda RN) H/O dilation and curettage Social History Social History Alcohol intake: never Patient Tobacco Use Status: Former Tobacco user Tobacco use type: Cigarette Advance Directives: No (unknown) Advance Directives Information Provided: Yes Advance Directives on File: No Meds Allergies Allergy/AdvReac Type Severity Reaction Status Date / Time Iodinated Contrast Media Allergy Swelling Verified 07/20/21 07:54 Home Medications Medication Instructions Recorded Confirmed Last Taken Type cetirizine 10 mg tablet 1 tab PO DAILY 10/29/20 06/20/21 Unknown History cyanocobalamin (vitamin B-12) 1 tab PO DAILY 10/29/20 06/20/21 Unknown History 1,000 mcg tablet escitalopram oxalate 10 mg tablet 1 tab PO DAILY 10/29/20 06/20/21 Unknown History sennosides 8.6 mg tablet (senna) 2 tab PO DAILY 10/29/20 06/20/21 Unknown History albuterol sulfate 90 mcg/actuation 2 puff PO Q4H PRN 07/20/21 07/20/21 Unknown History aerosol inhaler (ProAir HFA) fluticasone propionate 110 1 puff PO BID 07/20/21 07/20/21 Unknown History mcg/actuation HFA aerosol inhaler (Flovent HFA) sumatriptan succinate 50 mg tablet mg PO 07/20/21 Unknown History topiramate 100 mg tablet 1 tab PO DAILY 07/20/21 07/20/21 Unknown History verapamil 360 mg 24 hr 1 cap PO DAILY 07/20/21 07/20/21 Unknown History capsule,extended release
[2021-07-20 08:11] LABS: UPreg QC Valid YES; Urine Pregnancy NEGATIVE (NEGATIVE)
[2021-07-20 08:25] VITALS: BP 122/83; PULSE 73; RESP 16; TEMP 36.3; O2SAT 99
[2021-07-20] MEDS: Lactated Ringers 1,000 ML 100 ML IVCONT (08:43)
== END ==
PROVIDERS: Nurse Practitioner; Visit Provider Surgery
DX: K42.9 Umbilical hernia without obstruction or gangrene (principal); Z53.09 Procedure and treatment not carried out because of other contraindication; R00.2 Palpitations; R74.8 Abnormal levels of other serum enzymes
CPT/HCPCS: 81025; J0690; J2250; J3010

== ENCOUNTER 2021-07-26 18:30 | Emergency (ER) | payer MEDICAID, SELFPAY ==
[2021-07-26 18:36] VITALS: BP 112/80; BP 123/78; PULSE 80; PULSE 84; RESP 18; TEMP 36.6; O2SAT 100; O2SAT 99; BMI 30.9
--- NOTE | 2021-07-26 18:43 | ED.ARRPALP ---
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 Related Data Home Medications Medication Instructions Recorded Confirmed cetirizine 10 mg tablet 1 tab PO DAILY 10/29/20 06/20/21 cyanocobalamin (vitamin B-12) 1 tab PO DAILY 10/29/20 06/20/21 1,000 mcg tablet escitalopram oxalate 10 mg tablet 1 tab PO DAILY 10/29/20 06/20/21 sennosides 8.6 mg tablet (senna) 2 tab PO DAILY 10/29/20 06/20/21 albuterol sulfate 90 mcg/actuation 2 puff PO Q4H PRN 07/20/21 07/20/21 aerosol inhaler (ProAir HFA) fluticasone propionate 110 1 puff PO BID 07/20/21 07/20/21 mcg/actuation HFA aerosol inhaler (Flovent HFA) sumatriptan succinate 50 mg tablet mg PO 07/20/21 topiramate 100 mg tablet 1 tab PO DAILY 07/20/21 07/20/21 verapamil 360 mg 24 hr 1 cap PO DAILY 07/20/21 07/20/21 capsule,extended release Previous Rx's Medication Instructions Recorded omeprazole 40 mg capsule,delayed 40 mg PO DAILY #20 cap 03/28/20 release ondansetron 4 mg disintegrating 4 mg PO Q8H PRN #10 tab 03/15/21 tablet ondansetron 4 mg disintegrating 4 mg PO Q6H PRN #10 tab 06/30/21 tablet metoprolol tartrate 25 mg tablet 25 mg PO BID #60 tab 07/26/21 Allergies Allergy/AdvReac Type Severity Reaction Status Date / Time Iodinated Contrast Media Allergy Swelling Verified 07/20/21 07:54 Review of Systems Review of Systems: Yes all other systems are reviewed and are negative PMFSH Past Medical History Medical History Anxiety Asthma COVID Migraine Palpitations Panic attack Surgical History H/O dilation and curettage Family History Family History Maternal Grandfather Skin cancer Paternal Grandmother Colon cancer Social History Social History Alcohol intake: never Patient Tobacco Use Status: Former Tobacco user Tobacco use type: Cigarette Advance Directives: No Patient : No Physical Exam Vital Signs: Vital Signs: Last Vital Signs Temp 98.0 F 07/26/21 20:27 Pulse 89 07/26/21 20:27 Resp 20 07/26/21 20:27 BP 119/68 07/26/21 20:27 Pulse Ox 99 07/26/21 20:27 BMI result Body Mass Index 30.9 Appearance: Alert. Oriented X3. No acute distress. Anxious ENT: Pharynx normal. Oral Mucosa moist Neck: Normal inspection. Neck supple. CVS: Normal heart rate and rhythm. Pulses normal. Frequent unifocal PVCs Respiratory: No respiratory distress. Equal air entry bilateral, no wheezing/rales/rhonchi Abdomen: Soft and nontender. Bowel sounds are present, no mass palpable, no CVA tenderness Skin: Skin warm and dry. Normal skin color. Normal skin turgor. Extremities: No lower extremity edema. No calf tenderness Neuro: Oriented X 3. MDM - Arrhythmia/Palpitations MDM Narrative Medical decision making narrative: Patient with frequent PVCs, trigeminy on the EKG, on verapamil 360 mg daily still having palpitation episode since early today patient denies any caffeine intake today. Will add metoprolol 25 mg twice daily advised to follow with electron beam machine welder setter Lab Data Attestation: I reviewed the patient's lab results. Result diagrams: 07/26/21 19:10 07/26/21 19:10 Labs: Lab Results 07/26/21 07/26/21 07/26/21 Range/Units 19:10 19:10 19:10 WBC 6.9 (4.8-10.8) X10*3/uL RBC 4.36 (4.20-5.50) X10*6/uL Hgb 11.8 L (12.0-16.0) g/dl Hct 35.4 L (37.0-47.0) % MCV 81.2 (80.0-98.0) fL MCH 27.1 (27.0-33.0) pg MCHC 33.3 (31.0-35.0) g/dl RDW 14.5 (11.0-16.0) % Plt Count 265 (160-400) X10*3/uL MPV 10.7 (9.4-12.3) fL Immature Gran % (Auto) 0.3 (0.0-0.4) % Neut % (Auto) 50.3 (45-73) % Lymph % (Auto) 38.7 (20-40) % [place] % (Auto) 8.0 (2-11) % Eos % (Auto) 2.3 (0-4) % Baso % (Auto) 0.4 (0-2) % Lymph # (Auto) 2.7 (1.2-4.9) X10*3/uL [place] # (Auto) 0.6 (0.1-1.2) X10*3/uL Eos # (Auto) 0.2 (0.0-0.4) X10*3/uL Baso # (Auto) 0.0 (0.0-0.2) X10*3/uL Abs Immat Gran (auto) 0.02 (0.00-0.03) X10*3/uL Absolute Neuts (auto) 3.5 (2.0-8.3) x10*3/uL Absolute Nucleated RBC 0.000 (0.0-0.012) X10*3/uL Nucleated RBC % (auto) 0.0 (0.0-0.2) /100WBC Sodium 141 (135-145) mmol/L Potassium 3.4 (3.3-5.1) mmol/L Chloride 112 H (96-108) mmol/L Carbon Dioxide 21 L (22-29) mmol/L Anion Gap 11 L (12-20) BUN 11 D (9-16) mg/dL Creatinine 0.70 (0.5-1.4) mg/dL Estim Creat Clear Calc 114.0 Estimated GFR > 60 Random Glucose 99 (60-115) mg/dL Calcium 9.8 D (8.4-10.2) mg/dL Magnesium 1.7 (1.6-2.6) mg/dL Troponin I High Sens < 3.5 (<3.5-17.0) ng/L TSH 2.15 (0.32-4.0) uIU/mL ECG Data Attestation: I personally reviewed and interpreted this ECG as follows: Interpretation: Normal sinus rhythm with frequent unifocal PVCs trigeminy normal intervals normal axis no acute ST-T changes no acute ischemic Discharge Plan Discharge Clinical Impression: Ventricular premature beats Patient Disposition: Home, Self-Care Instructions: Premature Ventricular Contractions (ED) Additional Instructions: Avoid caffeinated drinks Continue verapamil Start taking metoprolol 25 mg twice daily And call the electron beam machine welder setter for further review and follow-up Report to the ER if passing out episode of worsening of palpitation Prescriptions: New metoprolol tartrate 25 mg tablet 25 mg PO BID Qty: 60 0RF No Action sennosides [senna] 8.6 mg tablet 2 tab PO DAILY 0RF cetirizine 10 mg tablet 1 tab PO DAILY 0RF cyanocobalamin (vitamin B-12) 1,000 mcg tablet 1 tab PO DAILY 0RF escitalopram oxalate 10 mg tablet 1 tab PO DAILY 0RF omeprazole 40 mg capsule,delayed release(DR/EC) 40 mg PO DAILY Qty: 20 0RF ondansetron 4 mg tablet,disintegrating 4 mg PO Q6H PRN (Reason: nausea and vomiting) Qty: 10 0RF ondansetron 4 mg tablet,disintegrating 4 mg PO Q8H PRN (Reason: nausea and vomiting) Qty: 10 0RF verapamil 360 mg capsule,ext rel. pellets 24 hr 1 cap PO DAILY 0RF sumatriptan succinate 50 mg tablet PO 0RF albuterol sulfate [ProAir HFA] 90 mcg/actuation HFA aerosol inhaler 2 puff PO Q4H PRN (Reason: Shortness Of Breath Or Wheezing) 0RF topiramate 100 mg tablet 1 tab PO DAILY 0RF Flovent HFA 110 mcg/actuation HFA aerosol inhaler 1 puff PO BID 0RF
--- NOTE | 2021-07-26 18:49 | ECG_ITS ---
Test Reason : ARRHYTHMIA Blood Pressure : / mmHG Vent. Rate : 076 BPM Atrial Rate : 076 BPM P-R Int : 124 ms QRS Dur : 094 ms QT Int : 414 ms P-R-T Axes : 062 051 056 degrees QTc Int : 465 ms Sinus rhythm with frequent Premature ventricular complexes Otherwise normal ECG When compared with ECG of 08-FEB-2021 17:02, Nonspecific T wave abnormality, improved in Anterior leads Referred By: Jose Leyva Electronically Signed By:FIDEL HANCOCK MD
[2021-07-26] MEDS: LORazepam 2 MG/ML VIAL 1 MG IVPUSH (19:15)
[2021-07-26 19:16] LABS: MANUAL DIFF FLAG NO
[2021-07-26 19:17] LABS: Basophils Percent Auto 0.4 % (0-2); Eosinophils Absolute Auto 0.2 X10*3/uL (0.0-0.4); Eosinophils Percent Auto 2.3 % (0-4); Hematocrit 35.4 % (37.0-47.0); Hemoglobin 11.8 g/dl (12.0-16.0); Imm Gran Abs Auto 0.02 X10*3/uL (0.00-0.03); Imm Gran Pct Auto 0.3 % (0.0-0.4); Lymphocytes Absolute Auto 2.7 X10*3/uL (1.2-4.9); Lymphocytes Percent Auto 38.7 % (20-40); Mean Corpuscular HGB Conc 33.3 g/dl (31.0-35.0); Mean Corpuscular Hemoglobin 27.1 pg (27.0-33.0); Mean Corpuscular Volume 81.2 fL (80.0-98.0); Mean Platelet Volume 10.7 fL (9.4-12.3); Monocytes Absolute Auto 0.6 X10*3/uL (0.1-1.2); Neutrophils Absolute Auto 3.5 x10*3/uL (2.0-8.3); Neutrophils Percent Auto 50.3 % (45-73); Platelet Count 265 X10*3/uL (160-400); Red Blood Count 4.36 X10*6/uL (4.20-5.50); Red Cell Distribution Width 14.5 % (11.0-16.0); White Blood Count 6.9 X10*3/uL (4.8-10.8)
[2021-07-26] MEDS: Metoprolol Tartrate 5 MG/5 ML VIAL IVPUSH (19:18)
[2021-07-26 19:37] LABS: Anion Gap 11 (12-20); Blood Urea Nitrogen 11 mg/dL (9-16); Calcium 9.8 mg/dL (8.4-10.2); Carbon Dioxide 21 mmol/L (22-29); Chloride 112 mmol/L (96-108); Estimated Glomerular Filt Rate > 60; Glucose Random 99 mg/dL (60-115); Magnesium 1.7 mg/dL (1.6-2.6); Potassium 3.4 mmol/L (3.3-5.1); Sodium 141 mmol/L (135-145)
[2021-07-26 19:43] LABS: Troponin-I High Sensitivity < 3.5 ng/L (<3.5-17.0)
[2021-07-26 19:58] LABS: Thyroid Stimulating Hormone 2.15 uIU/mL (0.32-4.0)
[2021-07-26 20:27] VITALS: BP 119/68; PULSE 89; RESP 20; TEMP 36.7; O2SAT 99
== END 2021-07-26 22:11 | disposition home or self-care (01) ==
PROVIDERS: Emergency Provider Internal Medicine
DX: I49.3 Ventricular premature depolarization (principal); R00.2 Palpitations; R06.02 Shortness of breath
CPT/HCPCS: 36415; 80048; 83735; 84443; 84484; 85025; 93005; 96374; 96375; 99284; 99285; J2060

== ENCOUNTER 2021-08-19 09:26 | Emergency (ER) | payer MEDICAID, SELFPAY ==
--- NOTE | 2021-08-19 | ECG_ITS ---
Test Reason : sob Blood Pressure : / mmHG Vent. Rate : 074 BPM Atrial Rate : 074 BPM P-R Int : 124 ms QRS Dur : 088 ms QT Int : 404 ms P-R-T Axes : 046 037 043 degrees QTc Int : 448 ms Normal sinus rhythm Normal ECG When compared with ECG of 26-JUL-2021 18:55, Premature ventricular complexes are no longer Present Referred By: Generic ED Physician Electronically Signed By:FIDEL HANCOCK MD
--- NOTE | ~2021-08-19 | XR_ITS ---
EXAMINATION: XR CHEST CLINICAL INFORMATION: Shortness of breath COMPARISON: Previous chest x-ray November 2020 TECHNIQUE: Frontal view of the chest was obtained. FINDINGS: The cardiac and mediastinal contours are normal. The lungs are clear. There is no pleural effusion or pneumothorax. Bony structures are unremarkable. XR/XR chest 1V IMPRESSION: No evidence for acute disease in the chest.
[2021-08-19 09:47] VITALS: BP 127/78; PULSE 79; RESP 16; TEMP 36.9; O2SAT 100; BMI 24.7
[2021-08-19 11:02] VITALS: BP 123/81; PULSE 71; O2SAT 100
--- NOTE | 2021-08-19 11:11 | ED.SOB ---
HPI - SOB/Dyspnea General Chief Complaint: Dyspnea Stated Complaint: sob Time Seen by Provider: 08/19/21 10:59 Source: patient Mode of arrival: ambulatory Limitations: no limitations History of Present Illness HPI Narrative: Shortness of breath for 2 months. 31-year-old female with history of anxiety a and asthma came in for increased shortness of breath for 2 months that when she gets it trigger her anxiety. No recent travel, no lower extremities swelling or tenderness. No history of PE or DVT. No fever, or chills. Related Data Home Medications Medication Instructions Recorded Confirmed cetirizine 10 mg tablet 1 tab PO DAILY 10/29/20 06/20/21 cyanocobalamin (vitamin B-12) 1 tab PO DAILY 10/29/20 06/20/21 1,000 mcg tablet escitalopram oxalate 10 mg tablet 1 tab PO DAILY 10/29/20 06/20/21 sennosides 8.6 mg tablet (senna) 2 tab PO DAILY 10/29/20 06/20/21 albuterol sulfate 90 mcg/actuation 2 puff PO Q4H PRN 07/20/21 07/20/21 aerosol inhaler (ProAir HFA) fluticasone propionate 110 1 puff PO BID 07/20/21 07/20/21 mcg/actuation HFA aerosol inhaler (Flovent HFA) sumatriptan succinate 50 mg tablet mg PO 07/20/21 topiramate 100 mg tablet 1 tab PO DAILY 07/20/21 07/20/21 verapamil 360 mg 24 hr 1 cap PO DAILY 07/20/21 07/20/21 capsule,extended release Previous Rx's Medication Instructions Recorded omeprazole 40 mg capsule,delayed 40 mg PO DAILY #20 cap 03/28/20 release ondansetron 4 mg disintegrating 4 mg PO Q8H PRN #10 tab 03/15/21 tablet ondansetron 4 mg disintegrating 4 mg PO Q6H PRN #10 tab 06/30/21 tablet metoprolol tartrate 25 mg tablet 25 mg PO BID #60 tab 07/26/21 Allergies Allergy/AdvReac Type Severity Reaction Status Date / Time Iodinated Contrast Media Allergy Swelling Verified 08/19/21 09:47 Review of Systems Review of Systems: All other systems are reviewed and are negative Constitutional: Reports as per HPI and Reports no additional constitutional complaints Eyes: Reports as per HPI and Reports no additional eye complaints Reports system reviewed and no additional complaints, except as documented Cardiovascular: Reports as per HPI and Reports no additional cardiovascular complaints Respiratory: Reports as per HPI and Reports no additional respiratory complaints Gastrointestinal: Reports as per HPI and Reports no additional gastrointestinal complaints Genitourinary: Reports no additional female genitourinary complaints Musculoskeletal: Reports no additional musculoskeletal complaints Skin/Breast: Reports system reviewed and no additional complaints, except as docu Psychiatric: Reports no additional psychiatric complaints Endocrine: Reports no additional endocrine complaints Hematologic/Lymphatic: Reports no additional hematologic/lymphatic complaints Allergic/Immunologic: Reports no additional allergic/immunologic complaints Reports system reviewed and no additional complaints, except as documented and Reports Abnormal speech present [facility] Past Medical History Medical History Anxiety Asthma COVID Migraine Palpitations Panic attack Surgical History H/O dilation and curettage Family History Family History Maternal Grandfather Skin cancer Paternal Grandmother Colon cancer Social History Social History Alcohol intake: never Patient Tobacco Use Status: Former Tobacco user Tobacco use type: Cigarette Advance Directives: No Advance Directives Information Provided: No Physical Exam Vital Signs: Vital Signs: Last Vital Signs Temp 98.4 F 08/19/21 09:47 Pulse 71 08/19/21 11:02 Resp 16 08/19/21 09:47 BP 123/81 08/19/21 11:02 Pulse Ox 100 08/19/21 11:02 BMI result Body Mass Index 24.7 Vital signs have been reviewed as appeared to be correct. Blood pressure normal. Heart rate normal. Respiration rate normal. Temperature normal. Oxygen saturation normal. Appearance: Alert. Oriented X3. No acute distress. Head: Normal external exam. Normocephalic. Atraumatic. No Fry signs noted. No raccoon eyes noted Eyes: PERRLA. EOMI. Conjunctiva and sclera normal. Eyelids normal. ENT: TM's Normal. Pharynx normal. Uvula midline. Moist mucous membranes. No trismus noted. No drooling noted. No muffled voice noted. Neck: Normal inspection. Neck supple. FROM. No adenopathy. Thyroid Normal. No meningeal signs. No neck mass noted. CVS: Normal heart rate and rhythm. Heart sound normal. No murmurs noted. Pulses normal throughout. Respiratory: No respiratory distress. Painless inspiration. Breath sounds normal. No wheezes/rales/rhonchi noted. Chest nontender. No accessory muscle usage noted or decreased air movement noted. Abdomen: Soft and nontender. Bowel sounds normal in all 4 quadrants. No distention noted. No organomegaly noted. No visible injury noted. Back: No CVA tenderness. Full range of motion noted. Skin: Skin warm and dry. Normal skin color. Normal skin turgor. No rashes/lesions/lacerations noted. Extremities: No lower extremity edema. Extremities exhibit normal range of motion. Extremities nontender. Neuro: Oriented X 3. Cranial nerve exam: II-XII are grossly intact No motor deficit. No sensory deficit. Reflexes normal. Course Course Course Narrative: Assessment and plan. 31-year-old female otherwise healthy came in for evaluation of intermittent shortness of breath and anxiety. Patient with stable vital signs, stable O2 sat, chest x-ray is unremarkable, EKG is unremarkable, labs and physical exam is unrevealing, patient at low risk for cardiopulmonary disorder. MDM - SOB/Dyspnea Medical Records Attestation: I reviewed the patient's medical records. Lab Data Attestation: I reviewed the patient's lab results. Result diagrams: 08/19/21 11:07 08/19/21 11:07 Labs: Lab Results 08/19/21 08/19/21 08/19/21 Range/Units 11:07 11:07 11:07 WBC 6.2 (4.8-10.8) X10*3/uL RBC 4.60 (4.20-5.50) X10*6/uL Hgb 12.4 (12.0-16.0) g/dl Hct 38.2 (37.0-47.0) % MCV 83.0 (80.0-98.0) fL MCH 27.0 (27.0-33.0) pg MCHC 32.5 (31.0-35.0) g/dl RDW 14.6 (11.0-16.0) % Plt Count 328 (160-400) X10*3/uL MPV 10.3 (9.4-12.3) fL Immature Gran % (Auto) 0.2 (0.0-0.4) % Neut % (Auto) 62.9 (45-73) % Lymph % (Auto) 30.2 (20-40) % Barron % (Auto) 4.8 (2-11) % Eos % (Auto) 1.3 (0-4) % Baso % (Auto) 0.6 (0-2) % Lymph # (Auto) 1.9 (1.2-4.9) X10*3/uL Barron # (Auto) 0.3 (0.1-1.2) X10*3/uL Eos # (Auto) 0.1 (0.0-0.4) X10*3/uL Baso # (Auto) 0.0 (0.0-0.2) X10*3/uL Abs Immat Gran (auto) 0.01 (0.00-0.03) X10*3/uL Absolute Neuts (auto) 3.9 (2.0-8.3) x10*3/uL Absolute Nucleated RBC 0.000 (0.0-0.012) X10*3/uL Nucleated RBC % (auto) 0.0 (0.0-0.2) /100WBC Sodium 138 (135-145) mmol/L Potassium 3.9 (3.3-5.1) mmol/L Chloride 109 H (96-108) mmol/L Carbon Dioxide 22 (22-29) mmol/L Anion Gap 11 L (12-20) BUN 6 L (9-16) mg/dL Creatinine 0.75 (0.5-1.4) mg/dL Estim Creat Clear Calc 95.7 Estimated GFR > 60 Random Glucose 97 (60-115) mg/dL Calcium 9.4 (8.4-10.2) mg/dL Total Bilirubin 0.7 (0.0-1.0) mg/dL Direct Bilirubin 0.2 (0.0-0.5) mg/dL AST 17 D (5-31) U/L ALT 17 (0-31) U/L Alkaline Phosphatase 72 D (39-117) U/L Total Protein 7.0 (6.5-8.0) g/dL Albumin 4.2 (3.5-5.0) g/dL Lipase 43 (8-78) U/L COVID-19 (JASPREET) Negative (Negative) COVID-19 Clin Com See Note Imaging Data Chest x-ray: Attestation: I personally reviewed and interpreted this imaging study as follows: Radiologist's impression: No acute pathology. ECG Data Attestation: I personally reviewed and interpreted this ECG as follows: Interpretation: Normal sinus rhythm at 74 beats per minutes, normal axis deviation, normal intervals, no ST-T changes. Discharge Plan Discharge Clinical Impression: Anxiety Patient Disposition: Home, Self-Care Instructions: Anxiety (ED) Prescriptions: No Action sennosides [senna] 8.6 mg tablet 2 tab PO DAILY 0RF cetirizine 10 mg tablet 1 tab PO DAILY 0RF cyanocobalamin (vitamin B-12) 1,000 mcg tablet 1 tab PO DAILY 0RF escitalopram oxalate 10 mg tablet 1 tab PO DAILY 0RF omeprazole 40 mg capsule,delayed release(DR/EC) 40 mg PO DAILY Qty: 20 0RF ondansetron 4 mg tablet,disintegrating 4 mg PO Q6H PRN (Reason: nausea and vomiting) Qty: 10 0RF metoprolol tartrate 25 mg tablet 25 mg PO BID Qty: 60 0RF ondansetron 4 mg tablet,disintegrating 4 mg PO Q8H PRN (Reason: nausea and vomiting) Qty: 10 0RF verapamil 360 mg capsule,ext rel. pellets 24 hr 1 cap PO DAILY 0RF sumatriptan succinate 50 mg tablet PO 0RF albuterol sulfate [ProAir HFA] 90 mcg/actuation HFA aerosol inhaler 2 puff PO Q4H PRN (Reason: Shortness Of Breath Or Wheezing) 0RF topiramate 100 mg tablet 1 tab PO DAILY 0RF Flovent HFA 110 mcg/actuation HFA aerosol inhaler 1 puff PO BID 0RF Referrals: Physician,Unknown J [Primary Care Provider] - 2 days
[2021-08-19 11:14] LABS: MANUAL DIFF FLAG NO
[2021-08-19 11:15] LABS: Basophils Percent Auto 0.6 % (0-2); Eosinophils Absolute Auto 0.1 X10*3/uL (0.0-0.4); Eosinophils Percent Auto 1.3 % (0-4); Hematocrit 38.2 % (37.0-47.0); Hemoglobin 12.4 g/dl (12.0-16.0); Imm Gran Abs Auto 0.01 X10*3/uL (0.00-0.03); Imm Gran Pct Auto 0.2 % (0.0-0.4); Lymphocytes Absolute Auto 1.9 X10*3/uL (1.2-4.9); Lymphocytes Percent Auto 30.2 % (20-40); Mean Corpuscular HGB Conc 32.5 g/dl (31.0-35.0); Mean Platelet Volume 10.3 fL (9.4-12.3); Monocytes Absolute Auto 0.3 X10*3/uL (0.1-1.2); Monocytes Percent Auto 4.8 % (2-11); Neutrophils Absolute Auto 3.9 x10*3/uL (2.0-8.3); Neutrophils Percent Auto 62.9 % (45-73); Platelet Count 328 X10*3/uL (160-400); Red Cell Distribution Width 14.6 % (11.0-16.0); White Blood Count 6.2 X10*3/uL (4.8-10.8)
[2021-08-19 11:30] LABS: COVID-19 Test Negative (Negative)
[2021-08-19 11:34] LABS: Alanine Aminotransferase 17 U/L (0-31); Albumin Level 4.2 g/dL (3.5-5.0); Alkaline Phosphatase 72 U/L (39-117); Anion Gap 11 (12-20); Aspartate Amino Transferase 17 U/L (5-31); Bilirubin Direct 0.2 mg/dL (0.0-0.5); Bilirubin Total 0.7 mg/dL (0.0-1.0); Blood Urea Nitrogen 6 mg/dL (9-16); Calcium 9.4 mg/dL (8.4-10.2); Carbon Dioxide 22 mmol/L (22-29); Chloride 109 mmol/L (96-108); Creatinine Clr Calc Pharmacy 95.7; Estimated Glomerular Filt Rate > 60; Glucose Random 97 mg/dL (60-115); Lipase 43 U/L (8-78); Potassium 3.9 mmol/L (3.3-5.1); Sodium 138 mmol/L (135-145)
== END 2021-08-19 12:31 | disposition home or self-care (01) ==
PROVIDERS: Emergency Provider Emergency Medicine
DX: F41.9 Anxiety disorder, unspecified (principal); J45.909 Unspecified asthma, uncomplicated; Z20.822 Contact with and (suspected) exposure to COVID-19
CPT/HCPCS: 36415; 71045; 80048; 80076; 83690; 85025; 87635; 93005; 99283; 99284

== ENCOUNTER 2021-10-12 10:00 | Emergency (ER) | payer MEDICAID, SELFPAY ==
[2021-10-12 11:16] VITALS: BP 126/84; PULSE 75; RESP 16; TEMP 36.4; O2SAT 100; BMI 32.8
[2021-10-12 11:36] LABS: MANUAL DIFF FLAG NO
[2021-10-12 11:38] LABS: Basophils Percent Auto 0.6 % (0-2); Eosinophils Absolute Auto 0.1 X10*3/uL (0.0-0.4); Hematocrit 39.3 % (37.0-47.0); Hemoglobin 12.8 g/dl (12.0-16.0); Imm Gran Abs Auto 0.01 X10*3/uL (0.00-0.03); Imm Gran Pct Auto 0.2 % (0.0-0.4); Lymphocytes Absolute Auto 1.7 X10*3/uL (1.2-4.9); Lymphocytes Percent Auto 33.9 % (20-40); Mean Corpuscular HGB Conc 32.6 g/dl (31.0-35.0); Mean Corpuscular Hemoglobin 27.3 pg (27.0-33.0); Mean Corpuscular Volume 83.8 fL (80.0-98.0); Mean Platelet Volume 10.7 fL (9.4-12.3); Monocytes Absolute Auto 0.3 X10*3/uL (0.1-1.2); Monocytes Percent Auto 6.6 % (2-11); Neutrophils Absolute Auto 2.9 x10*3/uL (2.0-8.3); Neutrophils Percent Auto 56.7 % (45-73); Platelet Count 338 X10*3/uL (160-400); Red Blood Count 4.69 X10*6/uL (4.20-5.50); Red Cell Distribution Width 13.4 % (11.0-16.0)
[2021-10-12 11:50] LABS: UPreg QC Valid YES; Urine Pregnancy NEGATIVE (NEGATIVE)
[2021-10-12 11:53] LABS: Appearance Urine CLEAR; Color Urine YELLOW; Glucose Urine UA NEG (NEG); Leukocyte Esterase Urine NEG (NEG); Nitrite Urine NEG (NEG); UACC Culture Trigger NO; Urine Blood 3+ (NEG); Urine Ketones NEG (NEG); Urine Protein NEG (NEG-TRACE)
[2021-10-12 11:58] LABS: Alanine Aminotransferase 14 U/L (0-31); Albumin Level 4.1 g/dL (3.5-5.0); Alkaline Phosphatase 73 U/L (39-117); Anion Gap 10 (12-20); Aspartate Amino Transferase 15 U/L (5-31); Bilirubin Direct < 0.2 mg/dL (0.0-0.5); Bilirubin Total 0.4 mg/dL (0.0-1.0); Blood Urea Nitrogen 7 mg/dL (9-16); Calcium 10.1 mg/dL (8.4-10.2); Carbon Dioxide 27 mmol/L (22-29); Chloride 106 mmol/L (96-108); Creatinine Clr Calc Pharmacy 105.2; Estimated Glomerular Filt Rate > 60; Glucose Random 95 mg/dL (60-115); Potassium 4.2 mmol/L (3.3-5.1); Sodium 139 mmol/L (135-145); Total Protein 7.2 g/dL (6.5-8.0)
[2021-10-12 12:05] LABS: RBC Urine 30-49 /HPF (0); Squamous Epithelial Cell Urine TRACE /LPF
[2021-10-12 12:06] LABS: WBC Urine 0 /HPF (0-4)
--- NOTE | 2021-10-12 13:55 | ED.ABDPAIN ---
HPI - Abdominal Pain General Chief Complaint: Abdominal Pain Stated Complaint: liver problem Time Seen by Provider: 10/12/21 13:55 Source: patient Mode of arrival: ambulatory Limitations: no limitations History of Present Illness HPI narrative: patient with right upper quadrant pain, she was told that she has liver issues. 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 She was told she had hepatitis which is not true, just vaccinated. Us of liver showed no gall bladder disease and normal liver and kidneys. Patient has an umbilical hernia that bothers her MD elicited complaint: abdominal pain Quality: cramping Related Data Home Medications Medication Instructions Recorded Confirmed cetirizine 10 mg tablet 1 tab PO DAILY 10/29/20 06/20/21 cyanocobalamin (vitamin B-12) 1 tab PO DAILY 10/29/20 06/20/21 1,000 mcg tablet escitalopram oxalate 10 mg tablet 1 tab PO DAILY 10/29/20 06/20/21 sennosides 8.6 mg tablet (senna) 2 tab PO DAILY 10/29/20 06/20/21 albuterol sulfate 90 mcg/actuation 2 puff PO Q4H PRN 07/20/21 07/20/21 aerosol inhaler (ProAir HFA) fluticasone propionate 110 1 puff PO BID 07/20/21 07/20/21 mcg/actuation HFA aerosol inhaler (Flovent HFA) sumatriptan succinate 50 mg tablet mg PO 07/20/21 topiramate 100 mg tablet 1 tab PO DAILY 07/20/21 07/20/21 verapamil 360 mg 24 hr 1 cap PO DAILY 07/20/21 07/20/21 capsule,extended release Previous Rx's Medication Instructions Recorded omeprazole 40 mg capsule,delayed 40 mg PO DAILY #20 cap 03/28/20 release ondansetron 4 mg disintegrating 4 mg PO Q8H PRN #10 tab 03/15/21 tablet ondansetron 4 mg disintegrating 4 mg PO Q6H PRN #10 tab 06/30/21 tablet metoprolol tartrate 25 mg tablet 25 mg PO BID #60 tab 07/26/21 Allergies Allergy/AdvReac Type Severity Reaction Status Date / Time Iodinated Contrast Media Allergy Swelling Verified 08/19/21 09:47 Review of Systems Constitutional: Reports no additional constitutional complaints Eyes: Reports no additional eye complaints Denies dizziness Cardiovascular: Reports no additional cardiovascular complaints Respiratory: Reports as per HPI Gastrointestinal: Reports no additional gastrointestinal complaints Genitourinary: Reports no additional female genitourinary complaints Musculoskeletal: Reports no additional musculoskeletal complaints Skin/Breast: Denies rash Reports system reviewed and no additional complaints, except as documented, Denies dizziness and Denies Sensory deficit (Neuro) Psychiatric: Denies anxiety PMFSH Past Medical History Medical History Anxiety Asthma COVID Migraine Palpitations Panic attack Surgical History H/O dilation and curettage Family History Family History Maternal Grandfather Skin cancer Paternal Grandmother Colon cancer Social History Social History Alcohol intake: never Patient Tobacco Use Status: Former Tobacco user Tobacco use type: Cigarette Advance Directives: No Advance Directives Information Provided: No Physical Exam ED Vital Signs: Vital Signs - 24 hr 10/12/21 11:16 Temperature 97.5 F Pulse Rate 75 Respiratory Rate 16 Blood Pressure 126/84 Pulse Oximetry 100 BMI result Body Mass Index 32.8 Const General: healthy appearing Nutritional Appearance: average body habitus Orientation/consciousness: oriented to person and patient oriented x3 Limitations: no limitations HENMT Head: Yes normal to inspection Ears: external ears normal General nose exam: Normal external nose present Mouth: Normal oral and palatal mucosa present and oropharynx normal Throat: Yes posterior oropharynx normal Eyes General: appearance normal, both eyes and all related structures Neck Neck: Yes normal visual inspection Chest Chest palpation & inspection: normal inspection of the chest Resp Auscultation: clear to auscultation bilaterally Cardio Jugular venous distension: no JVD Rate: regular rate Rhythm: regular rhythm Heart sounds: S1 normal heart sound present and S2 normal heart sound present GI Other: umbilical hernia that is easily reduced Inspection: Yes normal to inspection Palpation (GI): Soft to palpation, nontender and No hepatosplenomegaly present Auscultation: normal bowel sounds General: Yes no CVA tenderness Back/Spine/Pelvis Back: no CVA tenderness Skin General skin exam: no rashes or lesions noted Neuro General: oriented to person and patient oriented x3 Cranial nerves: Yes CN's II-XII intact bilaterally Motor exam (neuro): 5/5 motor strength present throughout Sensory Exam: No Sensory deficit (Neuro) Extrem General: Yes normal to inspection Psych Appearance: grossly normal Course Reevaluation(s) Reevaluation #1: patient with normal LFTS and easily reduced umbilical hernia will dc home Time: 14:04 MDM - Abdominal Pain Lab Data Result diagrams: 10/12/21 11:24 10/12/21 11:24 Labs: Lab Results 10/12/21 10/12/21 10/12/21 Range/Units 11:24 11:24 11:27 WBC 5.0 (4.8-10.8) X10*3/uL RBC 4.69 (4.20-5.50) X10*6/uL Hgb 12.8 (12.0-16.0) g/dl Hct 39.3 (37.0-47.0) % MCV 83.8 (80.0-98.0) fL MCH 27.3 (27.0-33.0) pg MCHC 32.6 (31.0-35.0) g/dl RDW 13.4 (11.0-16.0) % Plt Count 338 (160-400) X10*3/uL MPV 10.7 (9.4-12.3) fL Immature Gran % (Auto) 0.2 (0.0-0.4) % Neut % (Auto) 56.7 (45-73) % Lymph % (Auto) 33.9 (20-40) % Jackson % (Auto) 6.6 (2-11) % Eos % (Auto) 2.0 (0-4) % Baso % (Auto) 0.6 (0-2) % Lymph # (Auto) 1.7 (1.2-4.9) X10*3/uL Jackson # (Auto) 0.3 (0.1-1.2) X10*3/uL Eos # (Auto) 0.1 (0.0-0.4) X10*3/uL Baso # (Auto) 0.0 (0.0-0.2) X10*3/uL Abs Immat Gran (auto) 0.01 (0.00-0.03) X10*3/uL Absolute Neuts (auto) 2.9 (2.0-8.3) x10*3/uL Absolute Nucleated RBC 0.000 (0.0-0.012) X10*3/uL Nucleated RBC % (auto) 0.0 (0.0-0.2) /100WBC Sodium 139 (135-145) mmol/L Potassium 4.2 (3.3-5.1) mmol/L Chloride 106 (96-108) mmol/L Carbon Dioxide 27 (22-29) mmol/L Anion Gap 10 L (12-20) BUN 7 L (9-16) mg/dL Creatinine 0.78 (0.5-1.4) mg/dL Estim Creat Clear Calc 105.2 Estimated GFR > 60 Random Glucose 95 (60-115) mg/dL Calcium 10.1 D (8.4-10.2) mg/dL Total Bilirubin 0.4 (0.0-1.0) mg/dL Direct Bilirubin < 0.2 (0.0-0.5) mg/dL AST 15 (5-31) U/L ALT 14 (0-31) U/L Alkaline Phosphatase 73 (39-117) U/L Total Protein 7.2 (6.5-8.0) g/dL Albumin 4.1 (3.5-5.0) g/dL Urine Color YELLOW Urine Appearance CLEAR Urine pH 7.0 (5.0-8.0) Ur Specific [place] 1.020 (1.005-1.025) Urine Protein NEG (NEG-TRACE) MG/DL Urine Glucose (UA) NEG (NEG) MG/DL Urine Ketones NEG (NEG) MG/DL Urine Blood 3+ H (NEG) Urine Nitrite NEG (NEG) Ur Leukocyte Esterase NEG (NEG) Urine RBC 30-49 H (0) /HPF Urine WBC 0 (0-4) /HPF Ur Squamous Epith Cells TRACE /LPF Urine Bacteria NONE /LPF Urine Test (NEGATIVE) 10/12/21 Range/Units 11:28 WBC (4.8-10.8) X10*3/uL RBC (4.20-5.50) X10*6/uL Hgb (12.0-16.0) g/dl Hct (37.0-47.0) % MCV (80.0-98.0) fL MCH (27.0-33.0) pg MCHC (31.0-35.0) g/dl RDW (11.0-16.0) % Plt Count (160-400) X10*3/uL MPV (9.4-12.3) fL Immature Gran % (Auto) (0.0-0.4) % Neut % (Auto) (45-73) % Lymph % (Auto) (20-40) % Jackson % (Auto) (2-11) % Eos % (Auto) (0-4) % Baso % (Auto) (0-2) % Lymph # (Auto) (1.2-4.9) X10*3/uL Jackson # (Auto) (0.1-1.2) X10*3/uL Eos # (Auto) (0.0-0.4) X10*3/uL Baso # (Auto) (0.0-0.2) X10*3/uL Abs Immat Gran (auto) (0.00-0.03) X10*3/uL Absolute Neuts (auto) (2.0-8.3) x10*3/uL Absolute Nucleated RBC (0.0-0.012) X10*3/uL Nucleated RBC % (auto) (0.0-0.2) /100WBC Sodium (135-145) mmol/L Potassium (3.3-5.1) mmol/L Chloride (96-108) mmol/L Carbon Dioxide (22-29) mmol/L Anion Gap (12-20) BUN (9-16) mg/dL Creatinine (0.5-1.4) mg/dL Estim Creat Clear Calc Estimated GFR Random Glucose (60-115) mg/dL Calcium (8.4-10.2) mg/dL Total Bilirubin (0.0-1.0) mg/dL Direct Bilirubin (0.0-0.5) mg/dL AST (5-31) U/L ALT (0-31) U/L Alkaline Phosphatase (39-117) U/L Total Protein (6.5-8.0) g/dL Albumin (3.5-5.0) g/dL Urine Color Urine Appearance Urine pH (5.0-8.0) Ur Specific [place] (1.005-1.025) Urine Protein (NEG-TRACE) MG/DL Urine Glucose (UA) (NEG) MG/DL Urine Ketones (NEG) MG/DL Urine Blood (NEG) Urine Nitrite (NEG) Ur Leukocyte Esterase (NEG) Urine RBC (0) /HPF Urine WBC (0-4) /HPF Ur Squamous Epith Cells /LPF Urine Bacteria /LPF Urine Test NEGATIVE (NEGATIVE) Discharge Plan Discharge Clinical Impression: Umbilical hernia Patient Disposition: Home, Self-Care Instructions: Umbilical Hernia (ED) Prescriptions: No Action sennosides [senna] 8.6 mg tablet 2 tab PO DAILY 0RF cetirizine 10 mg tablet 1 tab PO DAILY 0RF cyanocobalamin (vitamin B-12) 1,000 mcg tablet 1 tab PO DAILY 0RF escitalopram oxalate 10 mg tablet 1 tab PO DAILY 0RF omeprazole 40 mg capsule,delayed release(DR/EC) 40 mg PO DAILY Qty: 20 0RF ondansetron 4 mg tablet,disintegrating 4 mg PO Q6H PRN (Reason: nausea and vomiting) Qty: 10 0RF metoprolol tartrate 25 mg tablet 25 mg PO BID Qty: 60 0RF ondansetron 4 mg tablet,disintegrating 4 mg PO Q8H PRN (Reason: nausea and vomiting) Qty: 10 0RF verapamil 360 mg capsule,ext rel. pellets 24 hr 1 cap PO DAILY 0RF sumatriptan succinate 50 mg tablet PO 0RF albuterol sulfate [ProAir HFA] 90 mcg/actuation HFA aerosol inhaler 2 puff PO Q4H PRN (Reason: Shortness Of Breath Or Wheezing) 0RF topiramate 100 mg tablet 1 tab PO DAILY 0RF Flovent HFA 110 mcg/actuation HFA aerosol inhaler 1 puff PO BID 0RF Referrals: Bandar Woo MD [Physician] - 1 week
== END 2021-10-12 14:14 | disposition home or self-care (01) ==
PROVIDERS: Emergency Provider Emergency Medicine
DX: K42.9 Umbilical hernia without obstruction or gangrene (principal); J45.909 Unspecified asthma, uncomplicated
CPT/HCPCS: 36415; 80048; 80076; 81001; 81025; 85025; 99283

== ENCOUNTER 2021-12-01 00:39 | Emergency (ER) | payer MEDICAID, SELFPAY ==
--- NOTE | ~2021-12-01 | CT_ITS ---
EXAMINATION: CT ABDOMEN AND PELVIS WITHOUT CONTRAST CLINICAL INFORMATION: Right lower quadrant pain COMPARISON: Ultrasound abdomen 07/04/2021, CT abdomen pelvis 03/28/2020, pelvic ultrasound 11/25/2021 TECHNIQUE: Multidetector volumetric imaging was performed from the superior aspect of the liver through the pubic symphysis. Sagittal and coronal reformatted images were obtained on the technologist's workstation. This CT examination was performed using dose optimization techniques as appropriate, variously including the following: *Automated exposure control *Adjustment of mA and/or kV according to patient size (this includes techniques or standardized protocols for targeted exams where dose is matched to indication/reason for exam; i.e. extremities or head) *Use of iterative reconstruction technique DLP: 614 mGy-cm FINDINGS: LUNG BASES: The visualized lung bases are unremarkable. LIVER, GALLBLADDER, AND BILIARY TREE: The liver is normal in size, shape, and attenuation. Some calcified hepatic granulomas are seen but no focal hepatic lesion or biliary ductal dilatation is present. The gallbladder is unremarkable with no evidence of radiopaque gallstones, gallbladder wall thickening, or obvious pericholecystic inflammatory changes. PANCREAS: Unremarkable. SPLEEN: Unremarkable. ADRENAL GLANDS: Unremarkable. KIDNEYS AND URETERS: The kidneys are normal in size, shape, and attenuation. No hydronephrosis, hydroureter, or calculi seen. No perinephric stranding. BLADDER: Unremarkable. GASTROINTESTINAL TRACT: The small and large bowel are unremarkable. The appendix is unremarkable. ABDOMINAL WALL: No significant hernia is appreciated. Tiny periumbilical hernia is present containing only fat. LYMPH NODES: No retroperitoneal lymphadenopathy. VASCULAR: Unremarkable. PELVIC VISCERA: Again seen is a complex 3.1 cm left ovarian cyst, similar to that seen on the pelvic ultrasound 6 days ago. An abnormal adnexal mass is not present. No free intraperitoneal fluid is seen. OSSEOUS STRUCTURES: Unremarkable. CT/CT abdomen pelvis wo con IMPRESSION: No significant abnormality is seen. A cause for the patient's right lower quadrant pain has not been identified. There is no nephrolithiasis and the appendix appears normal. Fleischner guidelines were followed.
[2021-12-01 00:50] VITALS: BP 141/73; PULSE 64; RESP 16; TEMP 36.8; O2SAT 100; BMI 30.1
[2021-12-01 00:55] LABS: MANUAL DIFF FLAG NO
[2021-12-01 00:56] LABS: Basophils Percent Auto 0.4 % (0-2); Eosinophils Absolute Auto 0.1 X10*3/uL (0.0-0.4); Eosinophils Percent Auto 1.2 % (0-4); Hematocrit 38.3 % (37.0-47.0); Hemoglobin 12.5 g/dl (12.0-16.0); Imm Gran Abs Auto 0.02 X10*3/uL (0.00-0.03); Imm Gran Pct Auto 0.2 % (0.0-0.4); Lymphocytes Absolute Auto 3.4 X10*3/uL (1.2-4.9); Mean Corpuscular HGB Conc 32.6 g/dl (31.0-35.0); Mean Corpuscular Hemoglobin 26.4 pg (27.0-33.0); Mean Platelet Volume 10.2 fL (9.4-12.3); Monocytes Absolute Auto 0.5 X10*3/uL (0.1-1.2); Neutrophils Absolute Auto 4.1 x10*3/uL (2.0-8.3); Neutrophils Percent Auto 50.2 % (45-73); Platelet Count 333 X10*3/uL (160-400); Red Blood Count 4.73 X10*6/uL (4.20-5.50); White Blood Count 8.1 X10*3/uL (4.8-10.8)
[2021-12-01 01:18] LABS: Alanine Aminotransferase 15 U/L (0-31); Albumin Level 4.1 g/dL (3.5-5.0); Alkaline Phosphatase 70 U/L (39-117); Anion Gap 11 (12-20); Aspartate Amino Transferase 13 U/L (5-31); Bilirubin Direct 0.2 mg/dL (0.0-0.5); Bilirubin Total 0.4 mg/dL (0.0-1.0); Blood Urea Nitrogen 9 mg/dL (9-16); Calcium 9.4 mg/dL (8.4-10.2); Carbon Dioxide 23 mmol/L (22-29); Chloride 108 mmol/L (96-108); Creatinine Clr Calc Pharmacy 102.2; Estimated Glomerular Filt Rate > 60; Glucose Random 100 mg/dL (60-115); Lipase 44 U/L (8-78); Sodium 138 mmol/L (135-145)
[2021-12-01 04:22] LABS: Appearance Urine CLEAR; Color Urine YELLOW; Glucose Urine UA NEG (NEG); Leukocyte Esterase Urine TRACE (NEG); Nitrite Urine NEG (NEG); Urine Blood NEG (NEG); Urine Ketones NEG (NEG); Urine Protein NEG (NEG-TRACE)
[2021-12-01 04:25] LABS: UPreg QC Valid YES; Urine Pregnancy NEGATIVE (NEGATIVE)
[2021-12-01 04:37] LABS: RBC Urine 0 /HPF (0); Renal Epithelial Cells Urine TRACE /LPF; Squamous Epithelial Cell Urine 1+ /LPF; WBC Urine 0-2 /HPF (0-4)
[2021-12-01 06:19] VITALS: BP 138/71; PULSE 66; RESP 16; O2SAT 100
--- NOTE | 2021-12-01 06:49 | ED.ABDPAIN ---
HPI - Abdominal Pain General Chief Complaint: Abdominal Pain Stated Complaint: R side pain, vomiting Time Seen by Provider: 12/01/21 06:47 Source: patient Mode of arrival: ambulatory History of Present Illness HPI narrative: 31-year-old female with 1 week of worsening right lower crampy/sharp abdominal discomfort is been associated with nausea and vomiting but she denies any fever chills and denies any urinary symptoms. LMP is 3 weeks ago. Related Data Home Medications Medication Instructions Recorded Confirmed cetirizine 10 mg tablet 1 tab PO DAILY 10/29/20 06/20/21 cyanocobalamin (vitamin B-12) 1 tab PO DAILY 10/29/20 06/20/21 1,000 mcg tablet escitalopram oxalate 10 mg tablet 1 tab PO DAILY 10/29/20 06/20/21 sennosides 8.6 mg tablet (senna) 2 tab PO DAILY 10/29/20 06/20/21 albuterol sulfate 90 mcg/actuation 2 puff PO Q4H PRN Shortness Of 07/20/21 07/20/21 aerosol inhaler (ProAir HFA) Breath Or Wheezing fluticasone propionate 110 1 puff PO BID 07/20/21 07/20/21 mcg/actuation HFA aerosol inhaler (Flovent HFA) sumatriptan succinate 50 mg tablet mg PO 07/20/21 topiramate 100 mg tablet 1 tab PO DAILY 07/20/21 07/20/21 verapamil 360 mg 24 hr 1 cap PO DAILY 07/20/21 07/20/21 capsule,extended release Previous Rx's Medication Instructions Recorded omeprazole 40 mg capsule,delayed 40 mg PO DAILY #20 caps 03/28/20 release ondansetron 4 mg disintegrating 4 mg PO Q8H PRN nausea and 03/15/21 tablet vomiting #10 tabs ondansetron 4 mg disintegrating 4 mg PO Q6H PRN nausea and 06/30/21 tablet vomiting #10 tabs metoprolol tartrate 25 mg tablet 25 mg PO BID #60 tabs 07/26/21 nitrofurantoin 100 mg PO Q12H 5 days #10 caps 12/01/21 monohydrate/macrocrystals 100 mg capsule (Macrobid) ondansetron 4 mg disintegrating 4 mg PO Q8H PRN nausea and 12/01/21 tablet vomiting #4 tabs Allergies Allergy/AdvReac Type Severity Reaction Status Date / Time Iodinated Contrast Media Allergy Swelling Verified 12/01/21 00:50 Review of Systems Review of Systems Pertinent positives and negatives as stated in HPI 10 point review of systems is otherwise negative. FOR[facility]LY [facility] Past Medical History Source: nursing notes reviewed Medical History Anxiety Asthma COVID Migraine Palpitations Panic attack Surgical History H/O dilation and curettage Family History Family History Maternal Grandfather Skin cancer Paternal Grandmother Colon cancer Social History Social History Alcohol intake: former Patient Tobacco Use Status: Never used Tobacco Tobacco use type: Cigarette Use of substances other than those prescribed or required for medical reasons: No Advance Directives: No Advance Directives Information Provided: Yes Patient : No Physical Exam ED Vital Signs: Vital Signs - 24 hr 12/01/21 00:50 12/01/21 06:19 12/01/21 07:44 Temperature 98.2 F Pulse Rate 64 66 61 Respiratory Rate 16 16 14 Blood Pressure 141/73 H 138/71 113/75 Pulse Oximetry 100 100 98 Oxygen Delivery Method Room Air Room Air Room Air BMI result Body Mass Index 30.1 VITAL SIGNS: Reviewed. GENERAL: Well developed, well nourished, in no acute distress. HEAD: Normocephalic/atraumatic EYES: PERRLA, EOMI EARS: Ext canals without abnormality OROPHARYNX: no oral lesions noted, posterior pharynx clear LUNGS: Normal breath sounds. No adventitious sounds or accessory muscle use. SpO2<100> CARDIOVASCULAR: Regular rate and rhythm without noted murmurs ABDOMEN: Soft, tenderness on deep palpation at mid lower abdomen without rebound, there is a small fat containing umbilical hernia without overlying skin changes and no pain on palpation,, non-distended with bowel sounds. MUSCULOSKELETAL: No tenderness, deformities, or effusions noted on gross inspection. EXTREMITIES: No cyanosis, clubbing or edema. SKIN: Inspection of the skin reveals no rashes NEUROLOGIC: Alert and oriented x 4. Strength and sensation to light touch were grossly intact x 4. Course Course Course Narrative: 31-year-old female with history and clinical presentation most suggestive of possible UTI/renal colic but doubt appendicitis for 4 days without fevers or chills and no evidence to suggest SBO and will rule out ectopic. Review of all investigations otherwise negative for acute findings than a UTI, patient received initial antibiotics as well as combination analgesics and then was discharged home in stable condition. MDM - Abdominal Pain Lab Data Result diagrams: 12/01/21 00:47 12/01/21 00:47 Labs: Lab Results 12/01/21 12/01/21 12/01/21 Range/Units 00:47 00:47 04:13 WBC 8.1 (4.8-10.8) X10*3/uL RBC 4.73 (4.20-5.50) X10*6/uL Hgb 12.5 (12.0-16.0) g/dl Hct 38.3 (37.0-47.0) % MCV 81.0 (80.0-98.0) fL MCH 26.4 L (27.0-33.0) pg MCHC 32.6 (31.0-35.0) g/dl RDW 14.0 (11.0-16.0) % Plt Count 333 (160-400) X10*3/uL MPV 10.2 (9.4-12.3) fL Immature Gran % (Auto) 0.2 (0.0-0.4) % Neut % (Auto) 50.2 (45-73) % Lymph % (Auto) 42.0 H (20-40) % [place] % (Auto) 6.0 (2-11) % Eos % (Auto) 1.2 (0-4) % Baso % (Auto) 0.4 (0-2) % Lymph # (Auto) 3.4 (1.2-4.9) X10*3/uL [place] # (Auto) 0.5 (0.1-1.2) X10*3/uL Eos # (Auto) 0.1 (0.0-0.4) X10*3/uL Baso # (Auto) 0.0 (0.0-0.2) X10*3/uL Abs Immat Gran (auto) 0.02 (0.00-0.03) X10*3/uL Absolute Neuts (auto) 4.1 (2.0-8.3) x10*3/uL Absolute Nucleated RBC 0.000 (0.0-0.012) X10*3/uL Nucleated RBC % (auto) 0.0 (0.0-0.2) /100WBC Sodium 138 (135-145) mmol/L Potassium 4.0 (3.3-5.1) mmol/L Chloride 108 (96-108) mmol/L Carbon Dioxide 23 (22-29) mmol/L Anion Gap 11 L (12-20) BUN 9 (9-16) mg/dL Creatinine 0.77 (0.5-1.4) mg/dL Estim Creat Clear Calc 102.2 Estimated GFR > 60 Random Glucose 100 (60-115) mg/dL Calcium 9.4 D (8.4-10.2) mg/dL Total Bilirubin 0.4 (0.0-1.0) mg/dL Direct Bilirubin 0.2 (0.0-0.5) mg/dL AST 13 (5-31) U/L ALT 15 (0-31) U/L Alkaline Phosphatase 70 (39-117) U/L Total Protein 7.0 (6.5-8.0) g/dL Albumin 4.1 (3.5-5.0) g/dL Lipase 44 (8-78) U/L Urine Color YELLOW Urine Appearance CLEAR Urine pH 7.0 (5.0-8.0) Ur Specific [place] 1.010 (1.005-1.025) Urine Protein NEG (NEG-TRACE) MG/DL Urine Glucose (UA) NEG (NEG) MG/DL Urine Ketones NEG (NEG) MG/DL Urine Blood NEG (NEG) Urine Nitrite NEG (NEG) Ur Leukocyte Esterase TRACE H (NEG) Urine RBC 0 (0) /HPF Urine WBC 0-2 (0-4) /HPF Ur Squamous Epith Cells 1+ /LPF Ur Renal Epithelial Cell TRACE /LPF Urine Bacteria NONE /LPF Urine Test (NEGATIVE) 12/01/21 Range/Units 04:13 WBC (4.8-10.8) X10*3/uL RBC (4.20-5.50) X10*6/uL Hgb (12.0-16.0) g/dl Hct (37.0-47.0) % MCV (80.0-98.0) fL MCH (27.0-33.0) pg MCHC (31.0-35.0) g/dl RDW (11.0-16.0) % Plt Count (160-400) X10*3/uL MPV (9.4-12.3) fL Immature Gran % (Auto) (0.0-0.4) % Neut % (Auto) (45-73) % Lymph % (Auto) (20-40) % [place] % (Auto) (2-11) % Eos % (Auto) (0-4) % Baso % (Auto) (0-2) % Lymph # (Auto) (1.2-4.9) X10*3/uL [place] # (Auto) (0.1-1.2) X10*3/uL Eos # (Auto) (0.0-0.4) X10*3/uL Baso # (Auto) (0.0-0.2) X10*3/uL Abs Immat Gran (auto) (0.00-0.03) X10*3/uL Absolute Neuts (auto) (2.0-8.3) x10*3/uL Absolute Nucleated RBC (0.0-0.012) X10*3/uL Nucleated RBC % (auto) (0.0-0.2) /100WBC Sodium (135-145) mmol/L Potassium (3.3-5.1) mmol/L Chloride (96-108) mmol/L Carbon Dioxide (22-29) mmol/L Anion Gap (12-20) BUN (9-16) mg/dL Creatinine (0.5-1.4) mg/dL Estim Creat Clear Calc Estimated GFR Random Glucose (60-115) mg/dL Calcium (8.4-10.2) mg/dL Total Bilirubin (0.0-1.0) mg/dL Direct Bilirubin (0.0-0.5) mg/dL AST (5-31) U/L ALT (0-31) U/L Alkaline Phosphatase (39-117) U/L Total Protein (6.5-8.0) g/dL Albumin (3.5-5.0) g/dL Lipase (8-78) U/L Urine Color Urine Appearance Urine pH (5.0-8.0) Ur Specific [place] (1.005-1.025) Urine Protein (NEG-TRACE) MG/DL Urine Glucose (UA) (NEG) MG/DL Urine Ketones (NEG) MG/DL Urine Blood (NEG) Urine Nitrite (NEG) Ur Leukocyte Esterase (NEG) Urine RBC (0) /HPF Urine WBC (0-4) /HPF Ur Squamous Epith Cells /LPF Ur Renal Epithelial Cell /LPF Urine Bacteria /LPF Urine Test NEGATIVE (NEGATIVE) Discharge Plan Discharge Clinical Impression: UTI (urinary tract infection) Patient Disposition: Home, Self-Care Instructions: Urinary Tract Infection in Women (ED) Additional Instructions: 1. Resume all home medications as prescribed. 2. Complete the entire course of antibiotics that you have been prescribed. Recommend that you take ulci-ruq-[id number] Tylenol/ibuprofen as needed for pain control. 3. Follow-up with your primary care provider by calling the office this morning and setting up an appointment for re-evaluation. Return to the ER for worsening symptoms. Prescriptions: New ondansetron 4 mg tablet,disintegrating 4 mg PO Q8H PRN (Reason: nausea and vomiting) Qty: 4 0RF nitrofurantoin monohyd/m-cryst [Macrobid] 100 mg capsule 100 mg PO Q12H 5 Days Qty: 10 0RF Rx Instructions: must administer with a meal/food No Action sennosides [senna] 8.6 mg tablet 2 tab PO DAILY cetirizine 10 mg tablet 1 tab PO DAILY cyanocobalamin (vitamin B-12) 1,000 mcg tablet 1 tab PO DAILY escitalopram oxalate 10 mg tablet 1 tab PO DAILY omeprazole 40 mg capsule,delayed release(DR/EC) 40 mg PO DAILY Qty: 20 0RF ondansetron 4 mg tablet,disintegrating 4 mg PO Q6H PRN (Reason: nausea and vomiting) Qty: 10 0RF metoprolol tartrate 25 mg tablet 25 mg PO BID Qty: 60 0RF ondansetron 4 mg tablet,disintegrating 4 mg PO Q8H PRN (Reason: nausea and vomiting) Qty: 10 0RF verapamil 360 mg capsule,ext rel. pellets 24 hr 1 cap PO DAILY sumatriptan succinate 50 mg tablet PO albuterol sulfate [ProAir HFA] 90 mcg/actuation HFA aerosol inhaler 2 puff PO Q4H PRN (Reason: Shortness Of Breath Or Wheezing) topiramate 100 mg tablet 1 tab PO DAILY Flovent HFA 110 mcg/actuation HFA aerosol inhaler 1 puff PO BID Referrals: [place],[facility] [Primary Care Provider] -
[2021-12-01 07:44] VITALS: BP 113/75; PULSE 61; RESP 14; O2SAT 98
[2021-12-01] MEDS: Ondansetron ODT 4 MG TAB.RAPDIS TRANSLINGU (07:55)
--- NOTE | 2021-12-01 08:30 | PC.NURSE ---
Pt alert and oriented complaining of abdominal pain. Pt denies nausea or vomiting at this time. Resting quietly in the bed awaiting dispo at this time.
[2021-12-01] MEDS: Ketorolac Tromethamine 15 MG/ML VIAL IM (08:49)
[2021-12-01] MEDS: Acetaminophen 325 MG TABLET 975 MG PO (08:49)
[2021-12-01] MEDS: Nitrofurantoin Monohyd/M-Cryst 100 MG CAPSULE PO (08:49)
== END 2021-12-01 08:53 | disposition home or self-care (01) ==
PROVIDERS: Emergency Provider Student in an Organized Health Care Education/Training Program
DX: N39.0 Urinary tract infection, site not specified (principal); J45.909 Unspecified asthma, uncomplicated
CPT/HCPCS: 36415; 74176; 80048; 80076; 81001; 81025; 83690; 85025; 96372; 99284; J1885

== ENCOUNTER → 2022-04-04 09:41 | Outpatient (BNVA) | payer MEDICAID, SELFPAY | PROVIDERS: PCP Registered Nurse Community Health; Referring Provider Registered Nurse Community Health; Visit Provider Nurse Practitioner Family | DX: R10.31 Right lower quadrant pain (principal); K59.01 Slow transit constipation; K58.1 Irritable bowel syndrome with constipation; K21.9 Gastro-esophageal reflux disease without esophagitis | CPT/HCPCS: 99202 ==

== ENCOUNTER 2022-04-21 13:19 | Emergency (ER) | payer MEDICAID, SELFPAY ==
[2022-04-21 13:20] VITALS: BP 112/59; PULSE 77; RESP 18; TEMP 36.2; O2SAT 99; BMI 25.7
== END 2022-04-21 19:38 | disposition left against medical advice (07) ==
PROVIDERS: Emergency Provider Emergency Medicine; PCP Registered Nurse Community Health
DX: G43.909 Migraine, unspecified, not intractable, without status migrainosus (principal)
CPT/HCPCS: 99281

== ENCOUNTER 2022-05-16 13:59 | Outpatient (REF) | payer MEDICAID, SELFPAY | END 2022-05-16 14:00 | disposition home or self-care (01) | LOC: HO.LNP 13:59 | PROVIDERS: Visit Provider Nurse Practitioner Family | DX: K21.9 Gastro-esophageal reflux disease without esophagitis (principal) | CPT/HCPCS: 87338 ==

== ENCOUNTER → 2022-05-30 09:54 | Outpatient (BNVA) | payer MEDICAID, SELFPAY | PROVIDERS: PCP Registered Nurse Community Health; Visit Provider Nurse Practitioner Family | DX: K21.9 Gastro-esophageal reflux disease without esophagitis (principal); K58.1 Irritable bowel syndrome with constipation; K59.01 Slow transit constipation; R10.13 Epigastric pain; A04.8 Other specified bacterial intestinal infections | CPT/HCPCS: 99212 ==

== ENCOUNTER 2022-06-01 09:16 | Emergency (ER) | payer MEDICAID, SELFPAY ==
--- NOTE | ~2022-06-01 | XR_ITS ---
EXAMINATION: XR FINGER, RIGHT CLINICAL INFORMATION: Third digit pain COMPARISON: None TECHNIQUE: 3 views of the right middle finger. FINDINGS: The bones and soft tissues are normal. No fracture. Alignment is anatomic. Joint spaces are maintained. XR/XR finger RT min 2V IMPRESSION: Normal finger radiographs.
[2022-06-01 09:37] VITALS: BP 122/78; PULSE 67; RESP 20; TEMP 36.8; O2SAT 100; BMI 28.0
--- NOTE | 2022-06-01 10:28 | ED.UPPEXIN ---
HPI - Extremity Injury (Upper) General Chief Complaint: Extremity Problem Stated Complaint: R hand inj 05/31/22 Time Seen by Provider: 06/01/22 10:07 Source: patient Mode of arrival: ambulatory Limitations: no limitations History of Present Illness complaint: injury to: right and finger (middle finger) Onset (ago): day(s) ( since yesterday) Other injuries: none Place: home Severity: mild Relieving factors: none Exacerbating factors: movement of extremity Context: other (twist injury ) Associated symptoms: denies other symptoms Related Data Home Medications Medication Instructions Recorded Confirmed cetirizine 10 mg tablet 1 tab PO DAILY 10/29/20 06/20/21 cyanocobalamin (vitamin B-12) 1 tab PO DAILY 10/29/20 06/20/21 1,000 mcg tablet albuterol sulfate 90 mcg/actuation 2 puff PO Q4H PRN Shortness Of 07/20/21 07/20/21 aerosol inhaler (ProAir HFA) Breath Or Wheezing fluticasone propionate 110 1 puff PO BID 07/20/21 07/20/21 mcg/actuation HFA aerosol inhaler (Flovent HFA) sumatriptan succinate 50 mg tablet mg PO 07/20/21 verapamil 360 mg 24 hr 1 cap PO DAILY 07/20/21 07/20/21 capsule,extended release Previous Rx's Medication Instructions Recorded esomeprazole magnesium 40 mg 40 mg PO DAILY #90 caps 04/04/22 capsule,delayed release (Nexium) sennosides 8.6 mg tablet (senna) 17.2 mg PO DAILY #180 tabs 04/04/22 amoxicillin 500 mg tablet 1,000 mg PO Q12H 14 days #56 tabs 05/30/22 levofloxacin 500 mg tablet 500 mg PO DAILY 14 days #14 tabs 05/30/22 ondansetron 4 mg disintegrating 4 mg PO Q6H PRN nausea and 05/30/22 tablet vomiting #10 tabs Allergies Allergy/AdvReac Type Severity Reaction Status Date / Time Iodinated Contrast Media Allergy Swelling Verified 05/30/22 10:19 Review of Systems Review of Systems: Constitutional : No Weight loss, No Fever, No Chills, No Night Sweats, No Fatigue, No Malaise ENT/Mouth : No Hearing loss, No Ear Pain, No Nasal Congestion, No Sinus Pain, No Hoarseness, No sore throat, No Rhinorrhea, No Swallowing Difficulty Eyes: No Eye Pain, No Swelling, No Redness, No Foreign Body, No Discharge, No Vision Changes Cardiovascular : No Chest Pain, No SOB, No Dyspnea on Exertion, No Orthopnea, No Edema, No Palpitations Respiratory : No Cough, No Sputum, No Wheezing, No Smoke Exposure, No Dyspnea Gastrointestinal : No Nausea, No Vomiting, No Diarrhea, No Constipation, No abdominal Pain, No Hematochezia, No Melena Genitourinary : no irregular bleeding, No Dysuria, No Urinary Frequency, No Hematuria, No Urinary Incontinence, No Urgency, No Flank Pain, No Urinary Flow Changes, No Hesitancy Musculoskeletal : + right middle finger joint pain, No Myalgias, No Joint Swelling Skin : No Skin Lesions, No rash Neuro : No Weakness, No Numbness, No Paresthesias, No Loss of Consciousness, No Dizziness, No Headache Psych : No Anxiety/Panic, No Depression, No SI/HI/AH/VH, No Social Issues, Heme/Lymph: No Bruising, No Bleeding,No Lymphadenopathy Endocrine : No Polyuria, No Polydipsia, No Temperature Intolerance Yes all other systems are reviewed and are negative [facility] Past Medical History Attestation statement: The following information was validated with the patient. Source: old records reviewed and nursing notes reviewed Medical History Anxiety Asthma COVID Migraine Palpitations Panic attack Surgical History H/O dilation and curettage Family History Family History Maternal Grandfather Skin cancer Paternal Grandmother Colon cancer Social History Social History Alcohol intake: former Patient Tobacco Use Status: Never used Tobacco Tobacco use type: Cigarette Advance Directives: No Physical Exam Vital Signs: Vital Signs: Last Vital Signs Temp 98.2 F 06/01/22 09:37 Pulse 67 06/01/22 09:37 Resp 20 06/01/22 09:37 BP 122/78 06/01/22 09:37 Pulse Ox 100 06/01/22 09:37 O2 Del Method 06/01/22 09:37 BMI result Body Mass Index 28.0 vital signs have been reviewed as normal and appeared to be correct. Blood pressure normal Heart rate normal. Respiration rate normal. Temperature normal. Oxygen saturation normal. Appearance: Alert. Oriented X3. No acute distress. Head: Normal external exam. Normocephalic. Atraumatic. Eyes: PERRLA. EOMI. Conjunctiva and sclera normal. Eyelids normal. ENT: Pharynx normal. Uvula midline. Moist mucous membranes. Neck: Normal inspection. Neck supple. FROM. CVS: Normal heart rate and rhythm. Respiratory: No respiratory distress. Painless inspiration. Skin: Skin warm and dry. Normal skin color. Normal skin turgor. No rashes/lesions/lacerations noted. Extremities: patient with mild tenderness palpation to the 3rd MCP with mild soft tissue swelling and ecchymosis although she has full range of motion of all finger/ hand wrist joint. No obvious ligamentous or tendon injury noted. Not consistent with septic joint or tenosynovitis. No anatomical snuffbox tenderness noted. No upper extremity edema. Otherwise all other extremities exhibit normal range of motion nontender. Neuro: Oriented X 3. No motor deficit. No sensory deficit. Reflexes normal. Normal steady gait. No focal neuro deficits noted. Vascular: + radial pulses/+ 2 distal pedal pulses/+2 dorsalis pedis b/l. Normal cap refill. No cyanosis noted to upper extremity nails and lower extremity toes nails. Course Course Course Narrative: Right hand/ finger x-ray revealed FINDINGS: The bones and soft tissues are normal. No fracture. Alignment is anatomic. Joint spaces are maintained.? XR/XR finger RT min 2V IMPRESSION: Normal finger radiographs. therefore at this time will DC home with symptomatic treatment instructions return if any new or worsening symptoms follow up with primary care provider. Patient understands agrees with this plan. Discharge Plan Discharge Clinical Impression: Sprain of right middle finger Patient Disposition: Home, Self-Care Instructions: Finger Sprain (ED) Prescriptions: No Action cetirizine 10 mg tablet 1 tab PO DAILY cyanocobalamin (vitamin B-12) 1,000 mcg tablet 1 tab PO DAILY verapamil 360 mg capsule,ext rel. pellets 24 hr 1 cap PO DAILY sumatriptan succinate 50 mg tablet PO albuterol sulfate [ProAir HFA] 90 mcg/actuation HFA aerosol inhaler 2 puff PO Q4H PRN (Reason: Shortness Of Breath Or Wheezing) Flovent HFA 110 mcg/actuation HFA aerosol inhaler 1 puff PO BID sennosides [senna] 8.6 mg tablet 17.2 mg PO DAILY Qty: 180 2RF esomeprazole magnesium [Nexium] 40 mg capsule,delayed release(DR/EC) 40 mg PO DAILY Qty: 90 3RF ondansetron 4 mg tablet,disintegrating 4 mg PO Q6H PRN (Reason: nausea and vomiting) Qty: 10 0RF levofloxacin 500 mg tablet 500 mg PO DAILY 14 Days Qty: 14 0RF amoxicillin 500 mg tablet 1,000 mg PO Q12H 14 Days Qty: 56 0RF Referrals: Tiff Galdamez [facility] [Primary Care Provider] - 3 days Interventions: ED Discharge Assessment Last Done: 06/01/22 10:38 Print Language: Romansh
== END 2022-06-01 10:39 | disposition home or self-care (01) ==
PROVIDERS: Emergency Provider Emergency Medicine Emergency Medical Services; PCP Registered Nurse Community Health
DX: S63.612A Unspecified sprain of right middle finger, initial encounter (principal); X50.1XXA Overexertion from prolonged static or awkward postures, initial encounter; Y93.9 Activity, unspecified; Y92.039 Unspecified place in apartment as the place of occurrence of the external cause; Y99.9 Unspecified external cause status
CPT/HCPCS: 73140; 99283

== ENCOUNTER 2022-06-24 00:01 | Observation (INO) | payer MEDICAID, SELFPAY ==
--- NOTE | ~2022-06-24 | CT_ITS ---
EXAMINATION: CT HEAD WITHOUT CONTRAST CLINICAL INFORMATION: Left-sided weakness COMPARISON: 01/29/2020 TECHNIQUE: Contiguous axial imaging was performed from the skull base to vertex without intravenous contrast. This CT examination was performed using dose optimization techniques as appropriate, variously including the following: * Automated exposure control * Adjustment of mA and/or kV according to patient size (this includes techniques or standardized protocols for targeted exams where dose is matched to indication/reason for exam; i.e. extremities or head) Use of iterative reconstruction technique DLP: 704 mGy-cm. FINDINGS: There is no evidence of acute intracranial hemorrhage or territorial infarction. No abnormal mass effect or midline shift is seen. Espinosa to white matter differentiation is well preserved. No extra-axial fluid collections are identified. No hydrocephalus. No significant volume loss. There is no abnormal attenuation within the brain parenchyma. The osseous structures and soft tissues are normal. The mastoid air cells and visualized portions of the paranasal sinuses are well aerated. CT/CT head for stroke IMPRESSION: No acute intracranial pathology. This critical result was discussed with Leticia Simon MD by telephone at 06/24/2022 12:22 AM and it was ascertained that the content and urgency of the report was understood at the time of direct communication.
--- NOTE | ~2022-06-24 | MR_ITS ---
EXAMINATION: MR BRAIN WITHOUT CONTRAST CLINICAL INFORMATION: TIA COMPARISON: Same day CT head without contrast TECHNIQUE: Multiplanar multisequence MR imaging of the brain was obtained without intravenous contrast. FINDINGS: There is no acute infarct on diffusion-weighted imaging. There is no intracranial hemorrhage on iron-sensitive imaging. No extra-axial collection or mass effect/herniation. Normal parenchymal signal characteristics. No hydrocephalus. The ventricles are normal in morphology and size. The major flow voids at the skull base are preserved. The midline structures are normal. The cerebellar tonsils are normally positioned. The craniocervical junction is normal. Marrow signal is within normal limits. The visualized soft tissues are without significant abnormality. No signal abnormality within the paranasal sinuses or within the mastoid air cells. MR/MR head/brain wo con IMPRESSION: No acute infarct or other acute intracranial abnormality
[2022-06-24 00:09] VITALS: BP 144/92; PULSE 74; O2SAT 99; BMI 26.5
--- NOTE | 2022-06-24 00:11 | ECG_ITS ---
Test Reason : STROKE Blood Pressure : / mmHG Vent. Rate : 070 BPM Atrial Rate : 070 BPM P-R Int : 124 ms QRS Dur : 084 ms QT Int : 532 ms P-R-T Axes : 093 049 010 degrees QTc Int : 574 ms AGE AND GENDER SPECIFIC ECG ANALYSIS Sinus rhythm with sinus arrhythmia with occasional Premature ventricular complexes ST elevation consider lateral injury or acute infarct Prolonged QT ACUTE ND / STEMI Abnormal ECG When compared with ECG of 19-AUG-2021 09:46, Significant changes have occurred Referred By: Leticia Simon Electronically Signed By:
[2022-06-24 00:20] LABS: Prothrombin Time Whole Bld POC 12.2 sec (11.1-13.5)
[2022-06-24 00:26] LABS: Glucose, Whole Blood 97 mg/dL (60-115)
[2022-06-24 00:32] VITALS: BP 121/75; PULSE 61; RESP 16; TEMP 36.5; O2SAT 97
--- NOTE | 2022-06-24 00:41 | ED.NEUROSD ---
HPI - Neuro Symptoms/Deficit General Chief Complaint: Stroke Stated Complaint: stroke alert Time Seen by Provider: 06/24/22 00:10 History of Present Illness HPI Narrative: Patient is a 32-year-old female presents today with having sudden onset of left arm left leg and facial weakness. History of anxiety. Positive generalized malaise. Patient denies any history of diabetes, hypertension, high cholesterol smoking, mi. There is no recreational drug use history. Related Data Home Medications Medication Instructions Recorded Confirmed cetirizine 10 mg tablet 1 tab PO DAILY 10/29/20 06/20/21 cyanocobalamin (vitamin B-12) 1 tab PO DAILY 10/29/20 06/20/21 1,000 mcg tablet albuterol sulfate 90 mcg/actuation 2 puff PO Q4H PRN Shortness Of 07/20/21 07/20/21 aerosol inhaler (ProAir HFA) Breath Or Wheezing fluticasone propionate 110 1 puff PO BID 07/20/21 07/20/21 mcg/actuation HFA aerosol inhaler (Flovent HFA) sumatriptan succinate 50 mg tablet mg PO 07/20/21 verapamil 360 mg 24 hr 1 cap PO DAILY 07/20/21 07/20/21 capsule,extended release Previous Rx's Medication Instructions Recorded esomeprazole magnesium 40 mg 40 mg PO DAILY #90 caps 04/04/22 capsule,delayed release (Nexium) sennosides 8.6 mg tablet (senna) 17.2 mg PO DAILY #180 tabs 04/04/22 amoxicillin 500 mg tablet 1,000 mg PO Q12H 14 days #56 tabs 05/30/22 levofloxacin 500 mg tablet 500 mg PO DAILY 14 days #14 tabs 05/30/22 ondansetron 4 mg disintegrating 4 mg PO Q6H PRN nausea and 05/30/22 tablet vomiting #10 tabs Allergies Allergy/AdvReac Type Severity Reaction Status Date / Time Iodinated Contrast Media Allergy Swelling Verified 05/30/22 10:19 Review of Systems Review of Systems: No fever no chills no diaphoresis Yes all other systems are reviewed and are negative [facility] Past Medical History Attestation statement: The following information was validated with the patient. Medical History Anxiety Asthma COVID Migraine Palpitations Panic attack Surgical History H/O dilation and curettage Family History Family History Maternal Grandfather Skin cancer Paternal Grandmother Colon cancer Social History Social History Alcohol intake: former Patient Tobacco Use Status: Never used Tobacco Tobacco use type: Cigarette Smoked in Last 30 Days: No Use of substances other than those prescribed or required for medical reasons: No Advance Directives: No Advance Directives Information Provided: Yes Patient : No Physical Exam Vital Signs: Vital Signs: Last Vital Signs Temp 97.7 F 06/24/22 00:32 Pulse 61 06/24/22 00:32 Resp 16 06/24/22 00:32 BP 121/75 06/24/22 00:32 Pulse Ox 97 06/24/22 00:32 O2 Del Method 06/24/22 00:32 BMI result Body Mass Index 26.5 Appearance: Alert. Oriented X3. Appear very anxious. Eyes: Pupils equal, round and reactive to light. ENT: Pharynx normal. Neck: Normal inspection. Neck supple. No lymph nodes noted. No crepitus CVS: Normal heart rate and rhythm. Pulses normal. Normal S1 and S2 Respiratory: No respiratory distress. Breath sounds normal. No Wheezing. No rales Abdomen: Soft and nontender. No rigidity. No distention. good BS x4 Skin: Skin warm and dry. Normal skin color. Normal skin turgor. Extremities: No lower extremity edema. Neurovascular intact to all extremities. No Lacerations. No Rash Neuro: Oriented X 3. Positive slight facial droop noted on the left side. Hand grasp is weak on the left side. Patient has difficulty lifting up her leg on the left side. Medical Decision Making Medical Decision Making MDM Narrative: Patient's sugars 97. There is no evidence for Differential Diagnosis Patient's sugar was 97. There is no evidence for hypoglycemia. Patient's sent today CT scanner right away as part of a stroke protocol. CT scan of the head was grossly negative on initial exam patient unable to lift up left arm against gravity. Unable lift the left leg against gravity with a slight facial droop. NIH stroke scale was 7. Upon leaving the CT scanner patient was re-examined. Now patient has equal hand grasps good strength in the upper extremity. In the lower extremity patient able lift up her leg and hold it up for 2nd. Facial droop has resolved. Erick patient's symptom improved. Does not warrant tPA. Finding was discussed with Neurology agree with plan. Patient stated that she has severe contrast allergy is to CT dye. Patient is receiving CT dye her throat with close. Elected not to do the CTA. Patient to be admitted for further evaluation. Question anxiety as well. Admission/Observation Consideration of admission/observation: Escalation of care including admission/observation considered Admission for TIA/CVA Consult Healthcare Provider Management of the patient was discussed with: Hospitalist Lab Data [facility] Lab Attestation statement: I reviewed the patient's lab results. 06/24/22 00:40 06/24/22 00:40 Labs: Lab Results 06/24/22 06/24/22 06/24/22 Range/Units 00:09 00:22 00:40 WBC 7.8 (4.8-10.8) X10*3/uL RBC 4.62 (4.20-5.50) X10*6/uL Hgb 12.5 (12.0-16.0) g/dl Hct 37.3 (37.0-47.0) % MCV 80.7 (80.0-98.0) fL MCH 27.1 (27.0-33.0) pg MCHC 33.5 (31.0-35.0) g/dl RDW 13.0 (11.0-16.0) % Plt Count 314 (160-400) X10*3/uL MPV 10.4 (9.4-12.3) fL Immature Gran % (Auto) 0.1 (0.0-0.4) % Neut % (Auto) 54.1 (45-73) % Lymph % (Auto) 37.8 (20-40) % [place] % (Auto) 5.7 (2-11) % Eos % (Auto) 1.9 (0-4) % Baso % (Auto) 0.4 (0-2) % Lymph # (Auto) 3.0 (1.2-4.9) X10*3/uL [place] # (Auto) 0.5 (0.1-1.2) X10*3/uL Eos # (Auto) 0.2 (0.0-0.4) X10*3/uL Baso # (Auto) 0.0 (0.0-0.2) X10*3/uL Abs Immat Gran (auto) 0.01 (0.00-0.03) X10*3/uL Absolute Neuts (auto) 4.2 (2.0-8.3) x10*3/uL Absolute Nucleated RBC 0.000 (0.0-0.012) X10*3/uL Nucleated RBC % (auto) 0.0 (0.0-0.2) /100WBC Whole Blood PT 12.2 (11.1-13.5) sec Whole Blood INR 1.0 (0.9-1.1) Sodium (135-145) mmol/L Potassium (3.3-5.1) mmol/L Chloride (96-108) mmol/L Carbon Dioxide (22-29) mmol/L Anion Gap (12-20) BUN (9-16) mg/dL Creatinine (0.5-1.4) mg/dL Estim Creat Clear Calc Estimated GFR POC Glucose 97 (60-115) mg/dL Random Glucose (60-115) mg/dL Calcium (8.4-10.2) mg/dL Phosphorus (2.7-4.5) mg/dL Magnesium (1.6-2.6) mg/dL Total Bilirubin (0.0-1.0) mg/dL Direct Bilirubin (0.0-0.5) mg/dL AST (5-31) U/L ALT (0-31) U/L Alkaline Phosphatase (39-117) U/L Total Creatine Kinase (26-140) U/L Troponin I High Sens (<3.5-17.0) ng/L Total Protein (6.5-8.0) g/dL Albumin (3.5-5.0) g/dL Beta HCG, Quant mIU/mL 06/24/22 06/24/22 06/24/22 Range/Units 00:40 00:40 00:40 WBC (4.8-10.8) X10*3/uL RBC (4.20-5.50) X10*6/uL Hgb (12.0-16.0) g/dl Hct (37.0-47.0) % MCV (80.0-98.0) fL MCH (27.0-33.0) pg MCHC (31.0-35.0) g/dl RDW (11.0-16.0) % Plt Count (160-400) X10*3/uL MPV (9.4-12.3) fL Immature Gran % (Auto) (0.0-0.4) % Neut % (Auto) (45-73) % Lymph % (Auto) (20-40) % [place] % (Auto) (2-11) % Eos % (Auto) (0-4) % Baso % (Auto) (0-2) % Lymph # (Auto) (1.2-4.9) X10*3/uL [place] # (Auto) (0.1-1.2) X10*3/uL Eos # (Auto) (0.0-0.4) X10*3/uL Baso # (Auto) (0.0-0.2) X10*3/uL Abs Immat Gran (auto) (0.00-0.03) X10*3/uL Absolute Neuts (auto) (2.0-8.3) x10*3/uL Absolute Nucleated RBC (0.0-0.012) X10*3/uL Nucleated RBC % (auto) (0.0-0.2) /100WBC Whole Blood PT (11.1-13.5) sec Whole Blood INR (0.9-1.1) Sodium 141 (135-145) mmol/L Potassium 3.6 (3.3-5.1) mmol/L Chloride 109 H (96-108) mmol/L Carbon Dioxide 22 (22-29) mmol/L Anion Gap 14 (12-20) BUN 10 (9-16) mg/dL Creatinine 0.74 (0.5-1.4) mg/dL Estim Creat Clear Calc 99.1 Estimated GFR > 60 POC Glucose (60-115) mg/dL Random Glucose 87 (60-115) mg/dL Calcium 9.9 (8.4-10.2) mg/dL Phosphorus 2.4 L (2.7-4.5) mg/dL Magnesium 2.0 (1.6-2.6) mg/dL Total Bilirubin 0.2 (0.0-1.0) mg/dL Direct Bilirubin < 0.2 (0.0-0.5) mg/dL AST 15 (5-31) U/L ALT 13 (0-31) U/L Alkaline Phosphatase 85 (39-117) U/L Total Creatine Kinase 88 (26-140) U/L Troponin I High Sens < 3.5 (<3.5-17.0) ng/L Total Protein 6.8 (6.5-8.0) g/dL Albumin 4.0 (3.5-5.0) g/dL Beta HCG, Quant < 2 mIU/mL Independent Interpretation I performed an independent interpretation of an: EKG Interpretation: Sinus heart rate is 60 MI QRS QT within normal limits is no acute ST segment elevation noted. Independent Historian Clinical information obtained from an independent historian. History obtained from or confirmed by: Friend External Record Review External record reviewed: Inpatient record Chronic Conditions No history diabetes, hypertension NIH Stroke Scale Internal: Initial- Upon Arrival Time: 00:45 Level of Consciousness: Alert Level of Consciousness Questions: Answers both questions correctly Level of Consciousness Commands: Performs both tasks correctly Best Gaze: Normal Visual: No visual loss Facial Palsy: Minor paralyis Motor Arm (Right): No drift Motor Arm (Left): No effort against gravity Motor Leg (Right): No drift Motor Leg (Left): No effort against gravity Limb Ataxia: Absent Sensory: Normal Best Language: No aphasia Dysarthia: Normal Extinction and Inattention: No abnormality Score: 7 Critical Care Time Critical Care Time Critical Care Time: Yes Total Critical Care Time: 40 Attestation: I have personally provided 40 minutes of critical care time exclusive of time spent on separately billable procedures. Time includes review of lab data, radiology results, discussion with consultants, and monitoring for potential decompensation. Interventions were performed as documented above Discharge Plan Discharge Clinical Impression: Cerebrovascular accident Prescriptions: No Action cetirizine 10 mg tablet 1 tab PO DAILY cyanocobalamin (vitamin B-12) 1,000 mcg tablet 1 tab PO DAILY verapamil 360 mg capsule,ext rel. pellets 24 hr 1 cap PO DAILY sumatriptan succinate 50 mg tablet PO albuterol sulfate [ProAir HFA] 90 mcg/actuation HFA aerosol inhaler 2 puff PO Q4H PRN (Reason: Shortness Of Breath Or Wheezing) Flovent HFA 110 mcg/actuation HFA aerosol inhaler 1 puff PO BID sennosides [senna] 8.6 mg tablet 17.2 mg PO DAILY Qty: 180 2RF esomeprazole magnesium [Nexium] 40 mg capsule,delayed release(DR/EC) 40 mg PO DAILY Qty: 90 3RF ondansetron 4 mg tablet,disintegrating 4 mg PO Q6H PRN (Reason: nausea and vomiting) Qty: 10 0RF levofloxacin 500 mg tablet 500 mg PO DAILY 14 Days Qty: 14 0RF amoxicillin 500 mg tablet 1,000 mg PO Q12H 14 Days Qty: 56 0RF
--- NOTE | 2022-06-24 00:46 | PC.NURSE ---
Stroke Alert: Pt arrived at 00:00 Pt came in with IV on her right arm 20g. 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 POC 97 Neuro assessment: no facial droop, slightly left hand and leg weakness, Pt is responsive to stimulus, Pt's pupil are PERRAL, no abnormal findings. GCS 15. Pt is on the continuos sample dye mixer and it shows NSR with a frequent PVC. Pt's BP is stable, and pt's sister is at bedside.
[2022-06-24 00:47] LABS: MANUAL DIFF FLAG NO
[2022-06-24 00:48] LABS: Basophils Percent Auto 0.4 % (0-2); Eosinophils Absolute Auto 0.2 X10*3/uL (0.0-0.4); Eosinophils Percent Auto 1.9 % (0-4); Hematocrit 37.3 % (37.0-47.0); Hemoglobin 12.5 g/dl (12.0-16.0); Imm Gran Abs Auto 0.01 X10*3/uL (0.00-0.03); Imm Gran Pct Auto 0.1 % (0.0-0.4); Lymphocytes Percent Auto 37.8 % (20-40); Mean Corpuscular HGB Conc 33.5 g/dl (31.0-35.0); Mean Corpuscular Hemoglobin 27.1 pg (27.0-33.0); Mean Corpuscular Volume 80.7 fL (80.0-98.0); Mean Platelet Volume 10.4 fL (9.4-12.3); Monocytes Absolute Auto 0.5 X10*3/uL (0.1-1.2); Monocytes Percent Auto 5.7 % (2-11); Neutrophils Absolute Auto 4.2 x10*3/uL (2.0-8.3); Neutrophils Percent Auto 54.1 % (45-73); Platelet Count 314 X10*3/uL (160-400); Red Blood Count 4.62 X10*6/uL (4.20-5.50); White Blood Count 7.8 X10*3/uL (4.8-10.8)
[2022-06-24 01:15] LABS: Alanine Aminotransferase 13 U/L (0-31); Alkaline Phosphatase 85 U/L (39-117); Anion Gap 14 (12-20); Aspartate Amino Transferase 15 U/L (5-31); Bilirubin Direct < 0.2 mg/dL (0.0-0.5); Bilirubin Total 0.2 mg/dL (0.0-1.0); Blood Urea Nitrogen 10 mg/dL (9-16); Calcium 9.9 mg/dL (8.4-10.2); Carbon Dioxide 22 mmol/L (22-29); Chloride 109 mmol/L (96-108); Creatinine Clr Calc Pharmacy 99.1; Estimated Glomerular Filt Rate > 60; Glucose Random 87 mg/dL (60-115); Phosphorus 2.4 mg/dL (2.7-4.5); Potassium 3.6 mmol/L (3.3-5.1); Sodium 141 mmol/L (135-145); Total Protein 6.8 g/dL (6.5-8.0)
[2022-06-24 01:21] LABS: Troponin-I High Sensitivity < 3.5 ng/L (<3.5-17.0)
[2022-06-24 01:32] LABS: HCG Quantitative < 2 mIU/mL
--- NOTE | 2022-06-24 01:34 | PM.IMHP ---
History of Present Illness Date of Service: 06/24/22 Chief Complaint: left-sided numbness tingling 32-year-old female with past medical history of anxiety, asthma, migraine headaches, palpitations history of panic attacks presents to the hospital with complaints of left-sided numbness tingling and weakness. Patient reports that she came [place], was at home, when all of a sudden she started having palpitations, then developed pain, as well as numbness and tingling of her left arm, then discomfort traveled to her head on the left side, felt like pressure / headache was coming, then developed facial numbness and tingling on the left side as well. Patient reports no change in her speech, reports that this lasted few minutes but she continues to have residual discomfort in her head. She reports that she usually gets migraine headaches but this is not similar. She also reports that she gets panic attack which is not similar to this. Patient otherwise reports that she is under a lot of stress at home but denies any chest pain, no palpitations, no lower extremity weakness numbness or tingling, no abdominal pain nausea or vomiting, no diarrhea constipation, no urinary symptoms and no lower extremity edema. On her arrival to the ED patient hemodynamically stable no abnormal labs labs unremarkable Has CT shows no acute intracranial pathology Patient unable to tolerate IV contrast of CT due to history of anaphylaxis Discussed with Neurology patient will be admitted for observation MRI in the morning Review of Systems Review of Systems: Yes all other systems are reviewed and are negative [facility] Medical History Anxiety Asthma COVID Migraine Palpitations Panic attack Family History Maternal Grandfather Skin cancer Paternal Grandmother Colon cancer Surgical History H/O dilation and curettage Social History Household Members: Children Housing: Apartment Do you presently have visiting nurse or other home services: No Alcohol intake: former Patient Tobacco Use Status: Former Tobacco user Tobacco use type: Cigarette Smoked in Last 30 Days: No Use of substances other than those prescribed or required for medical reasons: No Have you been hit, kicked, punched, or otherwise hurt by someone within the past year? If so, by whom?: No Do you feel safe in your current relationship?: No Current Relationship Is there a partner from a previous relationship who is making you feel unsafe now?: No Are you made to feel afraid or neglected: No Advance Directives: No Advance Directives Information Provided: Yes Do you have thoughts of harming others: None Do you have a plan to hurt others: No Plan Recently lost weight without trying: No How much weight loss: Unsure Eating poorly because of decreased appetite: No Nutrition screen score: 2 Nutrition Risks: No Nutritional Risk Patient : No : No Poor oral hygiene: No Meds Allergies Allergy/AdvReac Type Severity Reaction Status Date / Time Iodinated Contrast Media Allergy Swelling Verified 05/30/22 10:19 Home Medications Medication Instructions Recorded Confirmed Last Taken Type cetirizine 10 mg tablet 1 tab PO DAILY 10/29/20 06/20/21 Unknown History albuterol sulfate 90 mcg/actuation 2 puff PO Q4H PRN Shortness Of 07/20/21 07/20/21 Unknown History aerosol inhaler (ProAir HFA) Breath Or Wheezing fluticasone propionate 110 1 puff PO BID 07/20/21 07/20/21 Unknown History mcg/actuation HFA aerosol inhaler (Flovent HFA) sumatriptan succinate 50 mg tablet mg PO 07/20/21 Unknown History verapamil 360 mg 24 hr 1 cap PO DAILY 07/20/21 07/20/21 Unknown History capsule,extended release Physical Exam Vital Signs and Narrative: Vital Signs: Last Vital Signs Temp 97.7 F 06/24/22 00:32 Pulse 61 06/24/22 00:32 Resp 16 06/24/22 00:32 BP 121/75 06/24/22 00:32 Pulse Ox 97 06/24/22 00:32 O2 Del Method 06/24/22 00:32 BMI result Body Mass Index 26.5 Const: General: cooperative and no acute distress Orientation/consciousness: patient oriented x3 Eyes: General: appearance normal, both eyes and all related structures Resp: Effort & Inspection: normal respiratory effort Auscultation: clear to auscultation bilaterally Cardio: Rate: regular rate Rhythm: regular rhythm GI: Palpation (GI): Soft to palpation Auscultation: normal bowel sounds Skin: General skin exam: no rashes or lesions noted Neuro: Other: no neurological deficits General: patient oriented x3 Cognition (Neuro): normal cognition Extrem: General: Yes normal to inspection and Yes no pedal edema Results Labs 06/24/22 00:40 06/24/22 00:40 Labs: Laboratory Results - last 24 hr 06/24/22 06/24/22 06/24/22 00:09 00:22 00:40 MCV 80.7 MCH 27.1 MCHC 33.5 RDW 13.0 Plt Count 314 MPV 10.4 Immature Gran % (Auto) 0.1 Neut % (Auto) 54.1 Lymph % (Auto) 37.8 [place] % (Auto) 5.7 Eos % (Auto) 1.9 Baso % (Auto) 0.4 Lymph # (Auto) 3.0 [place] # (Auto) 0.5 Eos # (Auto) 0.2 Baso # (Auto) 0.0 Abs Immat Gran (auto) 0.01 Absolute Neuts (auto) 4.2 Absolute Nucleated RBC 0.000 Nucleated RBC % (auto) 0.0 Whole Blood PT 12.2 Whole Blood INR 1.0 Anion Gap Estim Creat Clear Calc Estimated GFR POC Glucose 97 Random Glucose Calcium Phosphorus Magnesium Total Bilirubin Direct Bilirubin AST ALT Alkaline Phosphatase Total Creatine Kinase Troponin I High Sens Total Protein Albumin Beta HCG, Quant 06/24/22 06/24/22 06/24/22 00:40 00:40 00:40 MCV MCH MCHC RDW Plt Count MPV Immature Gran % (Auto) Neut % (Auto) Lymph % (Auto) [place] % (Auto) Eos % (Auto) Baso % (Auto) Lymph # (Auto) [place] # (Auto) Eos # (Auto) Baso # (Auto) Abs Immat Gran (auto) Absolute Neuts (auto) Absolute Nucleated RBC Nucleated RBC % (auto) Whole Blood PT Whole Blood INR Anion Gap 14 Estim Creat Clear Calc 99.1 Estimated GFR > 60 POC Glucose Random Glucose 87 Calcium 9.9 Phosphorus 2.4 L Magnesium 2.0 Total Bilirubin 0.2 Direct Bilirubin < 0.2 AST 15 ALT 13 Alkaline Phosphatase 85 Total Creatine Kinase 88 Troponin I High Sens < 3.5 Total Protein 6.8 Albumin 4.0 Beta HCG, Quant < 2 Imaging Radiologist's Impressions: Impressions Head CT 06/24/22 00:21 IMPRESSION: No acute intracranial pathology. This critical result was discussed with Leticia Simon MD by telephone at 06/24/2022 12:22 AM and it was ascertained that the content and urgency of the report was understood at the time of direct communication. Assessment and Plan (1) TIA (transient ischemic attack): Status: Acute Plan 32-year-old female with past medical history of migraine anxiety, presents to the hospital with complaints of left-sided numbness weakness and tingling # TIA? - Possibly related to migraine headache - patient has no neurological deficits at this start - MRI in the morning - neurology consulted # migraine headaches - reports no migraine at this time - continue sumatriptan # anxiety hydroxyzine p.r.n. # palpitations - continue verapamil DVT prophylaxis: Early ambulation Time Spent With Patient Time: Total time managing care of this patient today ____ minutes. Quality Stroke Does the patient have a stroke diagnosis?: No VTE Prior VTE?: No VTE Risk Level:: Medical - low VTE Device Contraindication: Treatment Not Indicated VTE Drug Contraindication: Treatment Not Indicated
[2022-06-24 01:36] LABS: INTERNATIONAL NORM RATIO 0.9 (0.9-1.1); Prothrombin Time 9.9 SEC (10.0-13.1)
[2022-06-24 01:39] LABS: Partial Thromboplastin Time 25.9 SEC (26.0-36.4); Stroke Lab Use COMPLETE
[2022-06-24 03:41] LABS: COVID-19 Test Negative (Negative); IDNOW Serial# 16C4AD1C
[2022-06-24 05:24] VITALS: BMI 28.6
[2022-06-24 05:27] VITALS: BP 109/69; PULSE 76; RESP 18; TEMP 37.1; O2SAT 100
--- NOTE | 2022-06-24 05:56 | PC.NURSE ---
Pt arrived from the ED via Stretcher around 0500, alert and oriented, pt claimed all her neuro symptoms has resolvedd, denies any pain, VSS, SR in tele, safety instructed, pt decided not to take the flu shot at this time and will do it later.
[2022-06-24 06:36] LABS: MANUAL DIFF FLAG NO
[2022-06-24 06:56] LABS: Basophils Absolute Auto 0.1 X10*3/uL (0.0-0.2); Basophils Percent Auto 0.7 % (0-2); Eosinophils Absolute Auto 0.1 X10*3/uL (0.0-0.4); Hematocrit 38.5 % (37.0-47.0); Hemoglobin 12.6 g/dl (12.0-16.0); Imm Gran Abs Auto 0.02 X10*3/uL (0.00-0.03); Imm Gran Pct Auto 0.3 % (0.0-0.4); Lymphocytes Absolute Auto 2.6 X10*3/uL (1.2-4.9); Mean Corpuscular HGB Conc 32.7 g/dl (31.0-35.0); Mean Corpuscular Hemoglobin 27.3 pg (27.0-33.0); Mean Corpuscular Volume 83.3 fL (80.0-98.0); Mean Platelet Volume 10.9 fL (9.4-12.3); Monocytes Absolute Auto 0.5 X10*3/uL (0.1-1.2); Monocytes Percent Auto 6.3 % (2-11); Neutrophils Absolute Auto 3.8 x10*3/uL (2.0-8.3); Neutrophils Percent Auto 53.7 % (45-73); Platelet Count 318 X10*3/uL (160-400); Red Blood Count 4.62 X10*6/uL (4.20-5.50); White Blood Count 7.1 X10*3/uL (4.8-10.8)
[2022-06-24 07:15] VITALS: BP 97/56; PULSE 70; RESP 20; TEMP 37.1; O2SAT 97
[2022-06-24 07:19] LABS: Anion Gap 11 (12-20); Blood Urea Nitrogen 9 mg/dL (9-16); Calcium 9.5 mg/dL (8.4-10.2); Carbon Dioxide 26 mmol/L (22-29); Chloride 109 mmol/L (96-108); Creatinine Clr Calc Pharmacy 97.5; Estimated Glomerular Filt Rate > 60; Glucose Random 87 mg/dL (60-115); Potassium 3.9 mmol/L (3.3-5.1); Sodium 142 mmol/L (135-145)
--- NOTE | 2022-06-24 08:38 | PHA.MEDREC ---
Addendum entered by Juvenal Blanco 06/24/22 08:51: Based off claim history, escitalopram was Dc'd and fluoxetine was added on and dose was continuously increased to current fluoxetine 40mg daily. Original Note: Pharmacy Consult ? Medication Reconciliation Pharmacy has completed the medication reconciliation. Patient reports only being on verampamil er 360mg daily dose. Patient also states they still take sumatriptan PRN and escitalopram 10mg, however have no recent refills for both medications. Patient could name most medications, but could only verify verampamil 360mg dose.
[2022-06-24] MEDS: Aspirin Enteric Coated 81 MG TABLET.DR PO (09:24)
[2022-06-24] MEDS: Atorvastatin Calcium 80 MG TABLET PO (09:24)
[2022-06-24 10:57] VITALS: BP 129/79; PULSE 74; RESP 20; TEMP 36.3; O2SAT 100
--- NOTE | 2022-06-24 12:16 | PM.EVENT ---
Event Note Date of Service: 06/24/22 Event Note: Chart reviewed patient examined. Agree with physical exam. Symptoms suggestive of complex migraine; await MRI and neurological input Time Spent With Patient Time: Total time managing care of this patient today ____ minutes.
--- NOTE | 2022-06-24 13:00 | P.DS_ITS ---
DS: Providers Provider Date of Service: 06/24/22 Date of admission: 06/24/22 01:28 Date of discharge: 06/24/22 Primary care physician: Tiff Galdamez NP Consults: 06/24/22 01:32 Consult to Neurology Routine Consulting Provider: [facility] Reason for consultation: TIA Has provider been notified: Yes DS: Diagnosis Discharge Diagnosis (1) TIA (transient ischemic attack): Status: Acute DS: Summary Hospital Course Hospital Course: 32-year-old female with past medical history of anxiety, asthma, migraine headaches, palpitations history of panic attacks presents to the hospital with complaints of left-sided numbness tingling and weakness.? Patient reports that she came from [facility], was at home, when all of a sudden she started having palpitations, then developed pain, as well as numbness and tingling of her left arm, then discomfort traveled to her head on the left side, felt like pressure / headache was coming, then developed facial numbness and tingling on the left side as well.? Patient reports no change in her speech, reports that this lasted? few minutes but she continues to have residual discomfort in her head.? She reports that she usually gets migraine headaches but this is not similar.?? Hospital course Admitted to telemetry. Symptoms essentially resolved. Initial workup unremarkable. Underwent MRI this a.m. which was completely unremarkable. 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 Patient follows with Dr. Navarro as an outpatient and will follow-up with him. At this time she is medically acceptable for discharge Time Spent with Patient Time attestation: Total time managing care of this patient today ____ minutes. Discharge coordination time: Greater than 30 minutes Quality: Safe Use of Opioids Does Pt have an Active Cancer Diagnosis on the Problem List?: No Quality: Stroke Does the patient have a stroke diagnosis?: No Physical Exam Vital Signs: Vital Signs: Last Vital Signs Temp 97.3 F 06/24/22 10:57 Pulse 74 06/24/22 10:57 Resp 20 06/24/22 10:57 BP 129/79 06/24/22 10:57 Pulse Ox 100 06/24/22 10:57 O2 Del Method 06/24/22 10:57 BMI result Body Mass Index 28.6 Const: Other: Awake alert oriented x3 no acute distress Resp: Other: Clear to auscultation bilaterally Cardio: Other: No S4; positive S1-S2; no S3 murmurs rubs or gallops Neuro: Other: Cranial nerves 2-12 grossly intact as tested. Motor is 5/5 all extremities. Sensation is intact. Gait steady. Mentation appropriate Extrem: Other: No edema bilaterally DS: Data Data Completed and Pending Labs on day of discharge: Laboratory Results - last 24 hr 06/24/22 06/24/22 06/24/22 00:09 00:22 00:40 WBC 7.8 RBC 4.62 Hgb 12.5 Hct 37.3 MCV 80.7 MCH 27.1 MCHC 33.5 RDW 13.0 Plt Count 314 MPV 10.4 Immature Gran % (Auto) 0.1 Neut % (Auto) 54.1 Lymph % (Auto) 37.8 Archer % (Auto) 5.7 Eos % (Auto) 1.9 Baso % (Auto) 0.4 Lymph # (Auto) 3.0 Archer # (Auto) 0.5 Eos # (Auto) 0.2 Baso # (Auto) 0.0 Abs Immat Gran (auto) 0.01 Absolute Neuts (auto) 4.2 Absolute Nucleated RBC 0.000 Nucleated RBC % (auto) 0.0 PT Whole Blood PT 12.2 INR Whole Blood INR 1.0 APTT Sodium Potassium Chloride Carbon Dioxide Anion Gap BUN Creatinine Estim Creat Clear Calc Estimated GFR POC Glucose 97 Random Glucose Calcium Phosphorus Magnesium Total Bilirubin Direct Bilirubin AST ALT Alkaline Phosphatase Total Creatine Kinase Troponin I High Sens Total Protein Albumin Beta HCG, Quant COVID-19 (JASPREET) COVID-19 Clin Com 06/24/22 06/24/22 06/24/22 00:40 00:40 00:40 WBC RBC Hgb Hct MCV MCH MCHC RDW Plt Count MPV Immature Gran % (Auto) Neut % (Auto) Lymph % (Auto) Archer % (Auto) Eos % (Auto) Baso % (Auto) Lymph # (Auto) Archer # (Auto) Eos # (Auto) Baso # (Auto) Abs Immat Gran (auto) Absolute Neuts (auto) Absolute Nucleated RBC Nucleated RBC % (auto) PT Whole Blood PT INR Whole Blood INR APTT Sodium 141 Potassium 3.6 Chloride 109 H Carbon Dioxide 22 Anion Gap 14 BUN 10 Creatinine 0.74 Estim Creat Clear Calc 99.1 Estimated GFR > 60 POC Glucose Random Glucose 87 Calcium 9.9 Phosphorus 2.4 L Magnesium 2.0 Total Bilirubin 0.2 Direct Bilirubin < 0.2 AST 15 ALT 13 Alkaline Phosphatase 85 Total Creatine Kinase 88 Troponin I High Sens < 3.5 Total Protein 6.8 Albumin 4.0 Beta HCG, Quant < 2 COVID-19 (JASPREET) COVID-19 Clin Com 06/24/22 06/24/22 06/24/22 01:26 03:11 06:27 WBC 7.1 RBC 4.62 Hgb 12.6 Hct 38.5 MCV 83.3 MCH 27.3 MCHC 32.7 RDW 13.0 Plt Count 318 MPV 10.9 Immature Gran % (Auto) 0.3 Neut % (Auto) 53.7 Lymph % (Auto) 37.0 Archer % (Auto) 6.3 Eos % (Auto) 2.0 Baso % (Auto) 0.7 Lymph # (Auto) 2.6 Archer # (Auto) 0.5 Eos # (Auto) 0.1 Baso # (Auto) 0.1 Abs Immat Gran (auto) 0.02 Absolute Neuts (auto) 3.8 Absolute Nucleated RBC 0.000 Nucleated RBC % (auto) 0.0 PT 9.9 L Whole Blood PT INR 0.9 Whole Blood INR APTT 25.9 L Sodium Potassium Chloride Carbon Dioxide Anion Gap BUN Creatinine Estim Creat Clear Calc Estimated GFR POC Glucose Random Glucose Calcium Phosphorus Magnesium Total Bilirubin Direct Bilirubin AST ALT Alkaline Phosphatase Total Creatine Kinase Troponin I High Sens Total Protein Albumin Beta HCG, Quant COVID-19 (JASPREET) Negative COVID-19 Clin Com See Note 06/24/22 06:27 WBC RBC Hgb Hct MCV MCH MCHC RDW Plt Count MPV Immature Gran % (Auto) Neut % (Auto) Lymph % (Auto) Archer % (Auto) Eos % (Auto) Baso % (Auto) Lymph # (Auto) Archer # (Auto) Eos # (Auto) Baso # (Auto) Abs Immat Gran (auto) Absolute Neuts (auto) Absolute Nucleated RBC Nucleated RBC % (auto) PT Whole Blood PT INR Whole Blood INR APTT Sodium 142 Potassium 3.9 Chloride 109 H Carbon Dioxide 26 Anion Gap 11 L BUN 9 Creatinine 0.78 Estim Creat Clear Calc 97.5 Estimated GFR > 60 POC Glucose Random Glucose 87 Calcium 9.5 Phosphorus Magnesium Total Bilirubin Direct Bilirubin AST ALT Alkaline Phosphatase Total Creatine Kinase Troponin I High Sens Total Protein Albumin Beta HCG, Quant COVID-19 (JASPREET) COVID-19 Clin Com Discharge Plan Discharge Patient Disposition: Home, Self-Care Discharge Diagnosis: Complex migraine Referrals: Tiff Galdamez, [employer] [Primary Care Provider] - 1 Week Discharge Medications: Continued cetirizine 10 mg tablet 1 tab PO BEDTIME fluoxetine 40 mg capsule 1 cap PO BEDTIME trazodone 50 mg tablet 1 tab PO BEDTIME PRN (Reason: Insomnia) cyanocobalamin (vitamin B-12) 1,000 mcg tablet 1 tab PO DAILY buspirone 7.5 mg tablet 1 tab PO BID hydroxyzine HCl 25 mg tablet 1 tab PO BID PRN (Reason: panic attack) fluticasone propionate [Flovent HFA] 220 mcg/actuation HFA aerosol inhaler 1 puff INHALATION BID divalproex 250 mg tablet extended release 24 hr 1 tab PO BEDTIME metoprolol tartrate 25 mg tablet 1 tab PO BID Rx Instructions: take with food WesTab Plus 27 mg iron- 1 mg tablet 1 tab PO BEDTIME sennosides [senna] 8.6 mg tablet 2 tab PO BEDTIME esomeprazole magnesium [Nexium] 40 mg capsule,delayed release(DR/EC) 40 mg PO DAILY@0630 verapamil 360 mg capsule,ext rel. pellets 24 hr 1 cap PO BEDTIME sumatriptan succinate 50 mg tablet 50 mg PO Q2H PRN (Reason: Migraine Headache) Rx Instructions: MAX DOSE 200MG / 24 HOURS albuterol sulfate [ProAir HFA] 90 mcg/actuation HFA aerosol inhaler 2 puff PO Q6H PRN (Reason: Shortness Of Breath Or Wheezing) ondansetron 4 mg tablet,disintegrating 4 mg PO Q6H PRN (Reason: nausea and vomiting) Qty: 10 0RF Discharge Orders: Discharge Order (Routine); Ordered 06/24/22 Ordered By: Jacques Grossman Diet: Advance to usual diet Activity on Discharge: As tolerated Stand Alone Forms: Patient Portal Discharge page Care Plan Goals: Continue all meds as usual Health Concerns: Follow-up with neurology as scheduled Plan of Treatment: Follow-up with PCP as scheduled Assessment: See discharge summary
[2022-06-24] MEDS: Acetaminophen 325 MG TABLET 650 MG PO (13:22)
== END 2022-06-24 13:59 | disposition home or self-care (01) ==
LOC: HO.ED 00:51 → HO.EDOVER 01:39 → HO.IMC 04:23
PROVIDERS: Admitting Provider Internal Medicine; Emergency Provider Emergency Medicine Emergency Medical Services; PCP Registered Nurse Community Health; Visit Provider Hospitalist
DX: G43.109 Migraine with aura, not intractable, without status migrainosus (principal); R53.1 Weakness; R00.2 Palpitations; F41.9 Anxiety disorder, unspecified; Z20.822 Contact with and (suspected) exposure to COVID-19; Z79.899 Other long term (current) drug therapy
CPT/HCPCS: 36415; 70450; 70551; 80048; 80076; 82550; 82947; 83735; 84100; 84484; 84702; 85025; 85610; 85730; 87635; 93005; 96374; 99222; 99285

== ENCOUNTER 2022-07-30 15:04 | Emergency (ER) | payer MEDICAID, SELFPAY ==
--- NOTE | ~2022-07-30 | XR_ITS ---
EXAMINATION: XR KNEE, LEFT CLINICAL INFORMATION: Pain. COMPARISON: None TECHNIQUE: Four views of the left knee. FINDINGS: Bones and soft tissues are normal. No fracture or joint effusion. Alignment is anatomic. Joint spaces are well maintained. No abnormal soft tissue calcification. XR/XR knee LT 4V IMPRESSION: Normal left knee.
--- NOTE | 2022-07-30 16:22 | ED.EXTPRO ---
HPI - Extremity Problem General Chief complaint: Extremity Injury, Lower <CHACORTA Andrew - Last Filed: 07/30/22 17:19> Stated complaint: knee pain <CHACORTA Andrew - Last Filed: 07/30/22 17:19> Time Seen by Provider: 07/30/22 18:40 <CHACORTA Andrew - Last Filed: 07/30/22 17:19> Source: patient <Shannan Bustos MD - Last Filed: 07/30/22 19:31> Mode of arrival: ambulatory <Shannan Bustos MD - Last Filed: 07/30/22 19:31> Limitations: no limitations <Shannan Bustos MD - Last Filed: 07/30/22 19:31> History of Present Illness HPI Narrative: 32-year-old female came in for evaluation of left knee pain and swelling. 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 No recent travel, no leg swelling, <Shannan Bustos MD - Last Filed: 07/30/22 19:31> Related Data Home medications: Home Medications Medication Instructions Recorded Confirmed cetirizine 10 mg tablet 1 tab PO BEDTIME 10/29/20 06/24/22 albuterol sulfate 90 mcg/actuation 2 puff PO Q6H PRN Shortness Of 07/20/21 06/24/22 aerosol inhaler (ProAir HFA) Breath Or Wheezing sumatriptan succinate 50 mg tablet 50 mg PO Q2H PRN Migraine Headache 07/20/21 06/24/22 verapamil 360 mg 24 hr 1 cap PO BEDTIME 07/20/21 06/24/22 capsule,extended release buspirone 7.5 mg tablet 1 tab PO BID 06/24/22 06/24/22 cyanocobalamin (vitamin B-12) 1 tab PO DAILY 06/24/22 06/24/22 1,000 mcg tablet divalproex 250 mg tablet,extended 1 tab PO BEDTIME 06/24/22 06/24/22 release 24 hr esomeprazole magnesium 40 mg 40 mg PO DAILY@0630 06/24/22 06/24/22 capsule,delayed release (Nexium) fluoxetine 40 mg capsule 1 cap PO BEDTIME 06/24/22 06/24/22 fluticasone propionate 220 1 puff inhalation BID 06/24/22 06/24/22 mcg/actuation HFA aerosol inhaler (Flovent HFA) hydroxyzine HCl 25 mg tablet 1 tab PO BID PRN panic attack 06/24/22 06/24/22 metoprolol tartrate 25 mg tablet 1 tab PO BID 06/24/22 06/24/22 vitamin with calcium 1 tab PO BEDTIME 06/24/22 06/24/22 no.72-iron 27 mg-folic acid 1 mg tablet (WesTab Plus) sennosides 8.6 mg tablet (senna) 2 tab PO BEDTIME 06/24/22 06/24/22 trazodone 50 mg tablet 1 tab PO BEDTIME PRN Insomnia 06/24/22 06/24/22 Previous Rx's Medication Instructions Recorded ondansetron 4 mg disintegrating 4 mg PO Q6H PRN nausea and 05/30/22 tablet vomiting #10 tabs <CHACORTA Andrew - Last Filed: 07/30/22 17:19> Allergies/Adverse reactions: Allergies Allergy/AdvReac Type Severity Reaction Status Date / Time Iodinated Contrast Media Allergy Swelling Verified 05/30/22 10:19 <CHACORTA Andrew - Last Filed: 07/30/22 17:19> Review of Systems Review of Systems: All other systems are reviewed and are negative Constitutional: Reports as per HPI and Reports no additional constitutional complaints Eyes: Reports as per HPI and Reports no additional eye complaints Reports system reviewed and no additional complaints, except as documented Cardiovascular: Reports as per HPI and Reports no additional cardiovascular complaints Respiratory: Reports as per HPI and Reports no additional respiratory complaints Gastrointestinal: Reports as per HPI and Reports no additional gastrointestinal complaints Genitourinary: Reports no additional female genitourinary complaints Musculoskeletal: Reports no additional musculoskeletal complaints Skin/Breast: Reports system reviewed and no additional complaints, except as docu Psychiatric: Reports no additional psychiatric complaints Endocrine: Reports no additional endocrine complaints Hematologic/Lymphatic: Reports no additional hematologic/lymphatic complaints Allergic/Immunologic: Reports no additional allergic/immunologic complaints Reports system reviewed and no additional complaints, except as documented and Reports Abnormal speech present <Shannan Bustos MD - Last Filed: 07/30/22 19:31> [facility] Past Medical History Medical History: Medical History Anxiety Asthma COVID Migraine Palpitations Panic attack <CHACORTA Andrew - Last Filed: 07/30/22 17:19> Surgical History: Surgical History H/O dilation and curettage <CHACORTA Andrew - Last Filed: 07/30/22 17:19> Family History Family History: Family History Maternal Grandfather Skin cancer Paternal Grandmother Colon cancer <CHACORTA Andrew - Last Filed: 07/30/22 17:19> Social History Social History: Social History Household Members: Children Housing: Apartment Do you presently have visiting nurse or other home services: No Alcohol intake: former Patient Tobacco Use Status: Former Tobacco user Tobacco use type: Cigarette Advance Directives: No Advance Directives Information Provided: No <CHACORTA Andrew - Last Filed: 07/30/22 17:19> Physical Exam Vital Signs: Vital Signs: Last Vital Signs Temp 98.2 F 07/30/22 16:24 Pulse 89 07/30/22 16:24 Resp 18 07/30/22 16:24 Pulse Ox 97 07/30/22 16:24 O2 Del Method 07/30/22 16:24 BMI result Body Mass Index 29.3 <CHACORTA Andrew - Last Filed: 07/30/22 17:19> Vital Signs: Last Vital Signs Temp 98.2 F 07/30/22 16:24 Pulse 89 07/30/22 16:24 Resp 18 07/30/22 16:24 Pulse Ox 97 07/30/22 16:24 O2 Del Method 07/30/22 16:24 BMI result Body Mass Index 29.3 Vital signs have been reviewed as appeared to be correct. Blood pressure normal. Heart rate normal. Respiration rate normal. Temperature normal. Oxygen saturation normal. <Shannan Bustos MD - Last Filed: 07/30/22 19:31> Appearance: Alert. Oriented X3. No acute distress. Head: Normal external exam. Normocephalic. Atraumatic. No Fry signs noted. No raccoon eyes noted Eyes: PERRLA. EOMI. Conjunctiva and sclera normal. Eyelids normal. ENT: TM's Normal. Pharynx normal. Uvula midline. Moist mucous membranes. No trismus noted. No drooling noted. No muffled voice noted. Neck: Normal inspection. Neck supple. FROM. No adenopathy. Thyroid Normal. No meningeal signs. No neck mass noted. CVS: Normal heart rate and rhythm. Heart sound normal. No murmurs noted. Pulses normal throughout. Respiratory: No respiratory distress. Painless inspiration. Breath sounds normal. No wheezes/rales/rhonchi noted. Chest nontender. No accessory muscle usage noted or decreased air movement noted. Abdomen: Soft and nontender. Bowel sounds normal in all 4 quadrants. No distention noted. No organomegaly noted. No visible injury noted. Back: No CVA tenderness. Full range of motion noted. Skin: Skin warm and dry. Normal skin color. Normal skin turgor. No rashes/lesions/lacerations noted. Extremities: No lower extremity edema. Extremities exhibit normal range of motion. Extremities nontender. Neuro: Oriented X 3. Cranial nerve exam: II-XII are grossly intact No motor deficit. No sensory deficit. Reflexes normal. <Shannan Bustos MD - Last Filed: 07/30/22 19:31> Course Course Course Narrative: This is an RME: Additional HPI, ROS, PE not included below will be deferred to primary provider. 32 year old female hx of asthma, anxiety, migranes presents w/ atruamating L knee pain X few days. Pain worse with movement better at rest. Denies numbness & tingling. No fevers or chills. Ambulatory intro triage no issues. PE benign. NV intact. No previous issues w/ this knee. 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 Will discharge to follow-up with PCP. Patient was instructed if she can try to modify her job. <Shannan Bustos MD - Last Filed: 07/30/22 19:31> Time: 19:29 <Shannan Bustos MD - Last Filed: 07/30/22 19:31> Medical Decision Making Differential Diagnosis Differential Diagnoses: The differential diagnosis associated with the presentation includes (Arthritis, knee injury, DVT.) <Shannan Bustos MD - Last Filed: 07/30/22 19:31> Lab Data MDM Lab Attestation statement: I reviewed the patient's lab results. <Shannan Bustos MD - Last Filed: 07/30/22 19:31> Labs: Lab Results 07/30/22 Range/Units 18:06 D-Dimer High Sensitivty < 150 NG/ML <CHACORTA Andrew - Last Filed: 07/30/22 17:19> Lab Results 07/30/22 Range/Units 18:06 D-Dimer High Sensitivty < 150 NG/ML <Shannan Bustos MD - Last Filed: 07/30/22 19:31> Independent Interpretation I performed an independent interpretation of an: Plain X-Ray (Left knee: No acute fracture or dislocation.) <Shannan Bustos MD - Last Filed: 07/30/22 19:31> Radiology Impression Discussion of test interpretation with radiology: I have reviewed the radiologist's reading. <Shannan Bustos MD - Last Filed: 07/30/22 19:31> Discharge Plan Discharge Clinical Impression: Left knee pain <CHACORTA Andrew - Last Filed: 07/30/22 17:19> Patient Disposition: Home, Self-Care <CHACORTA Andrew - Last Filed: 07/30/22 17:19> Instructions: Knee Pain (ED) <CHACORTA Andrew - Last Filed: 07/30/22 17:19> Additional Instructions: Take your medications as prescribed. If you were prescribed antibiotics today, it is important that you take your medication to their entirety, do not skip any doses, do not finish them early. Follow-up with your primary care provider this week. Follow-up with orthopedics if pain persists. Return to the emergency department with new or worsening symptoms. Such as fevers, chills, chest pain, shortness of breath, nausea, vomiting, dizziness, headache, vision changes, lethargy In case of emergency call 911 <CHACORTA Andrew - Last Filed: 07/30/22 17:19> Prescriptions: No Action cetirizine 10 mg tablet 1 tab PO BEDTIME fluoxetine 40 mg capsule 1 cap PO BEDTIME trazodone 50 mg tablet 1 tab PO BEDTIME PRN (Reason: Insomnia) cyanocobalamin (vitamin B-12) 1,000 mcg tablet 1 tab PO DAILY buspirone 7.5 mg tablet 1 tab PO BID hydroxyzine HCl 25 mg tablet 1 tab PO BID PRN (Reason: panic attack) fluticasone propionate [Flovent HFA] 220 mcg/actuation HFA aerosol inhaler 1 puff INHALATION BID divalproex 250 mg tablet extended release 24 hr 1 tab PO BEDTIME metoprolol tartrate 25 mg tablet 1 tab PO BID Rx Instructions: take with food WesTab Plus 27 mg iron- 1 mg tablet 1 tab PO BEDTIME sennosides [senna] 8.6 mg tablet 2 tab PO BEDTIME esomeprazole magnesium [Nexium] 40 mg capsule,delayed release(DR/EC) 40 mg PO DAILY@0630 verapamil 360 mg capsule,ext rel. pellets 24 hr 1 cap PO BEDTIME sumatriptan succinate 50 mg tablet 50 mg PO Q2H PRN (Reason: Migraine Headache) Rx Instructions: MAX DOSE 200MG / 24 HOURS albuterol sulfate [ProAir HFA] 90 mcg/actuation HFA aerosol inhaler 2 puff PO Q6H PRN (Reason: Shortness Of Breath Or Wheezing) ondansetron 4 mg tablet,disintegrating 4 mg PO Q6H PRN (Reason: nausea and vomiting) Qty: 10 0RF <CHACORTA Andrew - Last Filed: 07/30/22 17:19>
[2022-07-30 16:24] VITALS: PULSE 89; RESP 18; TEMP 36.8; O2SAT 97; BMI 29.3
[2022-07-30 18:22] LABS: D Dimer High Sensitivity < 150 NG/ML
== END 2022-07-30 19:58 | disposition home or self-care (01) ==
PROVIDERS: Physician Assistant; Emergency Provider Emergency Medicine
DX: M25.562 Pain in left knee (principal); Z79.899 Other long term (current) drug therapy
CPT/HCPCS: 36415; 73564; 85379; 99282; 99283

== ENCOUNTER 2022-09-26 10:52 | Emergency (ER) | payer MEDICAID, SELFPAY ==
--- NOTE | ~2022-09-26 | XR_ITS ---
EXAMINATION: XR HAND, LEFT CLINICAL INFORMATION: Left thumb pain COMPARISON: None available. TECHNIQUE: PA, lateral, and oblique views of the left hand. FINDINGS: The bones and soft tissues are normal. No fracture. Alignment is anatomic. Joint spaces are maintained. No erosions or soft tissue calcifications. XR/XR hand LT min 3V IMPRESSION: Unremarkable left hand exam
--- NOTE | 2022-09-26 11:09 | ED.EXTPRO ---
HPI - Extremity Problem General Chief complaint: Extremity Injury, Upper <CHACORTA Andrew - Last Filed: 09/26/22 11:10> Stated complaint: L Hand Pain S/P Injury 4-5 Days Ago <CHACORTA Andrew Last Filed: 09/26/22 11:10> Time Seen by Provider: 09/26/22 11:19 <CHACORTA Andrew - Last Filed: 09/26/22 11:10> Source: patient <CHACORTA Patel Last Filed: 09/26/22 13:00> Mode of arrival: ambulatory <CHACORTA Patel Last Filed: 09/26/22 13:00> Limitations: no limitations <CHACORTA Patel Last Filed: 09/26/22 13:00> History of Present Illness HPI Narrative: 32yo female presenting for left thumb pain following an injury 5 days ago. Patient stated she was closing the car door when she hyperextended her thumb and has been having pain with extension since then. 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 She denies erythema, edema, or ecchymosis. She denies radiation of pain. <CHACORTA Patel - Last Filed: 09/26/22 13:00> MD Complaint: joint pain (1st MCP ) <CHACORTA Patel Last Filed: 09/26/22 13:00> Onset (ago): day(s) (5) <CHACORTA Patel Last Filed: 09/26/22 13:00> Pain Consistency: constant <CHACORTA Patel Last Filed: 09/26/22 13:00> Location: left <CHACORTA Patel Last Filed: 09/26/22 13:00> Quality: aching <CHACORTA Patel Last Filed: 09/26/22 13:00> Radiation: none <CHACORTA Patel Last Filed: 09/26/22 13:00> Relieving factors: nothing <CHACORTA Patel Last Filed: 09/26/22 13:00> Exacerbating factors: range of motion <CHACORTA Patel Last Filed: 09/26/22 13:00> Associated symptoms: denies other symptoms <CHACORTA Patel - Last Filed: 09/26/22 13:00> Related Data Home medications: Home Medications Medication Instructions Recorded Confirmed cetirizine 10 mg tablet 1 tab PO BEDTIME 10/29/20 06/24/22 albuterol sulfate 90 mcg/actuation 2 puff PO Q6H PRN Shortness Of 07/20/21 06/24/22 aerosol inhaler (ProAir HFA) Breath Or Wheezing sumatriptan succinate 50 mg tablet 50 mg PO Q2H PRN Migraine Headache 07/20/21 06/24/22 verapamil 360 mg 24 hr 1 cap PO BEDTIME 07/20/21 06/24/22 capsule,extended release buspirone 7.5 mg tablet 1 tab PO BID 06/24/22 06/24/22 cyanocobalamin (vitamin B-12) 1 tab PO DAILY 06/24/22 06/24/22 1,000 mcg tablet divalproex 250 mg tablet,extended 1 tab PO BEDTIME 06/24/22 06/24/22 release 24 hr esomeprazole magnesium 40 mg 40 mg PO DAILY@0630 06/24/22 06/24/22 capsule,delayed release (Nexium) fluoxetine 40 mg capsule 1 cap PO BEDTIME 06/24/22 06/24/22 fluticasone propionate 220 1 puff inhalation BID 06/24/22 06/24/22 mcg/actuation HFA aerosol inhaler (Flovent HFA) hydroxyzine HCl 25 mg tablet 1 tab PO BID PRN panic attack 06/24/22 06/24/22 metoprolol tartrate 25 mg tablet 1 tab PO BID 06/24/22 06/24/22 vitamin with calcium 1 tab PO BEDTIME 06/24/22 06/24/22 no.72-iron 27 mg-folic acid 1 mg tablet (WesTab Plus) sennosides 8.6 mg tablet (senna) 2 tab PO BEDTIME 06/24/22 06/24/22 trazodone 50 mg tablet 1 tab PO BEDTIME PRN Insomnia 06/24/22 06/24/22 Previous Rx's Medication Instructions Recorded ondansetron 4 mg disintegrating 4 mg PO Q6H PRN nausea and 05/30/22 tablet vomiting #10 tabs <CHACORTA Andrew - Last Filed: 09/26/22 11:10> Allergies/Adverse reactions: Allergies Allergy/AdvReac Type Severity Reaction Status Date / Time Iodinated Contrast Media Allergy Swelling Verified 09/26/22 11:19 <CHACORTA Andrew - Last Filed: 09/26/22 11:10> Review of Systems Review of Systems: Yes all other systems are reviewed and are negative <CHACORTA Patel - Last Filed: 09/26/22 13:00> [facility] Past Medical History Medical History: Medical History Anxiety Asthma COVID Migraine Palpitations Panic attack <CHACORTA Andrew - Last Filed: 09/26/22 11:10> Surgical History: Surgical History H/O dilation and curettage <CHACORTA Andrew - Last Filed: 09/26/22 11:10> Family History Family History: Family History Maternal Grandfather Skin cancer Paternal Grandmother Colon cancer <CHACORTA Andrew - Last Filed: 09/26/22 11:10> Social History Social History: Social History Household Members: Children Housing: Apartment Do you presently have visiting nurse or other home services: No Alcohol intake: former Patient Tobacco Use Status: Former Tobacco user Tobacco use type: Cigarette Advance Directives: No <CHACORTA Andrew - Last Filed: 09/26/22 11:10> Physical Exam Vital Signs: Vital Signs: Last Vital Signs Temp 98.9 F 09/26/22 11:19 Pulse 69 09/26/22 11:19 Resp 14 09/26/22 11:19 BP 126/76 09/26/22 11:19 Pulse Ox 100 09/26/22 11:19 O2 Del Method Room Air 09/26/22 11:19 BMI result Body Mass Index 29.7 <CHACORTA Andrew - Last Filed: 09/26/22 11:10> Vital Signs: Last Vital Signs Temp 98.9 F 09/26/22 11:19 Pulse 69 09/26/22 11:19 Resp 14 09/26/22 11:19 BP 126/76 09/26/22 11:19 Pulse Ox 100 09/26/22 11:19 O2 Del Method Room Air 09/26/22 11:19 BMI result Body Mass Index 29.7 <CHACORTA Patel - Last Filed: 09/26/22 13:00> Appearance: Alert. Oriented X3. No acute distress. HEENT: normal inspection CVS: Normal heart rate and rhythm. Pulses normal. Respiratory: No respiratory distress. Skin: Skin warm and dry. Normal skin color. Normal skin turgor. No rashes. Extremities: pain with ROM of left thumb. No edema, erythema, or ecchymosis. No snuffbox tenderness. Patient able to touch each finger to her thumb, normal thumb opposition. cap refill <3 sec. Neuro: Oriented X 3. No motor deficit. No sensory deficit. <CHACORTA Patel - Last Filed: 09/26/22 13:00> Course Course Course Narrative: This is an RME: Additional HPI, ROS, PE not included below will be deferred to primary provider. 32-year-old female history of seizures, anxiety asthma presenting to the emergency department for evaluation of left thumb pain status post jamming her finger in a car door 4 days ago. Patient reports she has been taking Tylenol and ibuprofen with little to no relief and still has significant pain worse with movement better at rest. Denies numbness or tingling. No previous issues with left thumb. Physical exam benign. Moving all digits. Neurovascular status intact Plan imaging. <CHACORTA Andrew - Last Filed: 09/26/22 11:10> Medications Administered Discontinued Medications Generic Name Dose Route Start Last Admin Trade Name Freq PRN Reason Stop Dose Admin Acetaminophen 975 mg 09/26/22 11:42 09/26/22 11:45 Acetaminophen 325 Mg Tablet PO 09/26/22 11:43 975 mg ONCE ONE Administration Ketorolac Tromethamine 30 mg 09/26/22 11:10 09/26/22 11:42 Ketorolac Tromethamine 15 Mg/Ml Vial IM 09/26/22 11:11 Not Given ONCE ONE <CHACORTA Andrew Last Filed: 09/26/22 11:10> Medications Administered Discontinued Medications Generic Name Dose Route Start Last Admin Trade Name Garret PRN Reason Stop Dose Admin Acetaminophen 975 mg 09/26/22 11:42 09/26/22 11:45 Acetaminophen 325 Mg Tablet PO 09/26/22 11:43 975 mg ONCE ONE Administration Ketorolac Tromethamine 30 mg 09/26/22 11:10 09/26/22 11:42 Ketorolac Tromethamine 15 Mg/Ml Vial IM 09/26/22 11:11 Not Given ONCE ONE <CHACORTA Patel Last Filed: 09/26/22 13:00> Medical Decision Making Medical Decision Making MDM Narrative: Patient is a 32yo female presenting for evaluation of left thumb pain following a hyperextension injury . Patient's physical exam showed pain with ROM of left thumb but was otherwise unremakable. Patient's x-ray showed no fractures, erosions, or soft tissue calcifications. Patient was given a thumb spica splint. Most likely sprain of the thumb. No evidence of UCL tear on examination. She was instructed to take Motrin or Tylenol as needed for pain. She was instructed to follow up with her primary care doctor and schedule a visit with ortho if she has no improvement with immobilization. She was instructed to call 911 or return if she develops new or worsening symptoms. <CHACORTA Patel Last Filed: 09/26/22 13:00> Differential Diagnosis Differential Diagnoses: The differential diagnosis associated with the presentation includes <CHACORTA Patel Last Filed: 09/26/22 13:00> Finger sprain, finger dislocation, finger fracture, De Quarvain's tenosynovitis, skiers thumb <CHACORTA Patel Last Filed: 09/26/22 13:00> Independent Interpretation I performed an independent interpretation of an: Plain X-Ray <CHACORTA Patel Last Filed: 09/26/22 13:00> Interpretation: normal left hand and thumb <CHACORTA Patel Last Filed: 09/26/22 13:00> Radiology Impression Discussion of test interpretation with radiology: I have reviewed the radiologist's reading. <CHACORTA Patel - Last Filed: 09/26/22 13:00> Radiologist Impression: EXAMINATION: XR HAND, LEFT CLINICAL INFORMATION: Left thumb pain? COMPARISON: None available.? TECHNIQUE: PA, lateral, and oblique views of the left hand. FINDINGS: The bones and soft tissues are normal. No fracture. Alignment is anatomic. Joint spaces are maintained. No erosions or soft tissue calcifications.? XR/XR hand LT min 3V IMPRESSION: Unremarkable left hand exam <CHACORTA Patel - Last Filed: 09/26/22 13:00> External Record Review External record reviewed: Prior outpatient labs and Prior outpatient radiology <CHACORTA Patel - Last Filed: 09/26/22 13:00> Prescription Management I considered prescription management with: Pain Medication <CHACORTA Patel - Last Filed: 09/26/22 13:00> Critical Care Time Critical Care Time Critical Care Time: No <CHACORTA Patel - Last Filed: 09/26/22 13:00> Discharge Plan Discharge Clinical Impression: Finger sprain <CHACORTA Andrew - Last Filed: 09/26/22 11:10> Patient Disposition: Home, Self-Care <CHACORTA Andrew - Last Filed: 09/26/22 11:10> Instructions: Finger Sprain (ED) <CHACORTA Andrew - Last Filed: 09/26/22 11:10> Additional Instructions: You were seen today for evaluation of left thumb pain. Your x-ray was unremarkable. You should wear the thumb spica splint for stability until the pain resolves. You can take Motrin or Tylenol as needed for pain. Be sure to follow up with your primary care and call 911 or return to the ER if you develop new or worsening symptoms. Lo vieron hoy para eugenio evaluaci?n del dolor en el pulgar anne. Mott radiograf?a fue normal. Debe usar la f?lanette en espiga para el pulgar para lograr estabilidad hasta que se resuelva el dolor. Puede carlos Motrin o Tylenol seg?n sea necesario para el dolor. Aseg?rese de hacer un seguimiento con mott atenci?n primaria y llame al 911 o regrese a la shani de emergencias si presenta s?ntomas nuevos o que empeoran. <CHACORTA Andrew - Last Filed: 09/26/22 11:10> Prescriptions: No Action cetirizine 10 mg tablet 1 tab PO BEDTIME fluoxetine 40 mg capsule 1 cap PO BEDTIME trazodone 50 mg tablet 1 tab PO BEDTIME PRN (Reason: Insomnia) cyanocobalamin (vitamin B-12) 1,000 mcg tablet 1 tab PO DAILY buspirone 7.5 mg tablet 1 tab PO BID hydroxyzine HCl 25 mg tablet 1 tab PO BID PRN (Reason: panic attack) fluticasone propionate [Flovent HFA] 220 mcg/actuation HFA aerosol inhaler 1 puff INHALATION BID divalproex 250 mg tablet extended release 24 hr 1 tab PO BEDTIME metoprolol tartrate 25 mg tablet 1 tab PO BID Rx Instructions: take with food WesTab Plus 27 mg iron- 1 mg tablet 1 tab PO BEDTIME sennosides [senna] 8.6 mg tablet 2 tab PO BEDTIME esomeprazole magnesium [Nexium] 40 mg capsule,delayed release(DR/EC) 40 mg PO DAILY@0630 verapamil 360 mg capsule,ext rel. pellets 24 hr 1 cap PO BEDTIME sumatriptan succinate 50 mg tablet 50 mg PO Q2H PRN (Reason: Migraine Headache) Rx Instructions: MAX DOSE 200MG / 24 HOURS albuterol sulfate [ProAir HFA] 90 mcg/actuation HFA aerosol inhaler 2 puff PO Q6H PRN (Reason: Shortness Of Breath Or Wheezing) ondansetron 4 mg tablet,disintegrating 4 mg PO Q6H PRN (Reason: nausea and vomiting) Qty: 10 0RF <CHACORTA Andrew - Last Filed: 09/26/22 11:10> Referrals: [facility] [Provider Group] (left thumb hyperextension injury, x-ray negative) <CHACORTA Andrew Last Filed: 09/26/22 11:10> Stand Alone Forms: Work/School Release <CHACORTA Andrew - Last Filed: 09/26/22 11:10> Interventions: ED Discharge Assessment Last Done: 09/26/22 12:43 <CHACORTA Andrew - Last Filed: 09/26/22 11:10> Discharge Date/Time: 09/26/22 12:43 <CHACORTA Andrew - Last Filed: 09/26/22 11:10> Print Language: Welsh <CHACORTA Andrew - Last Filed: 09/26/22 11:10>
[2022-09-26 11:19] VITALS: BP 126/76; PULSE 69; RESP 14; TEMP 37.2; O2SAT 100; BMI 29.7
[2022-09-26] MEDS: Acetaminophen 325 MG TABLET 975 MG PO (11:45)
--- NOTE | 2022-09-26 11:46 | PC.NURSE ---
medicated per provider order for 7/10 left hand pain, pending XR results.
== END 2022-09-26 12:43 | disposition home or self-care (01) ==
PROVIDERS: Emergency Provider Emergency Medicine
DX: S63.602A Unspecified sprain of left thumb, initial encounter (principal); X50.1XXA Overexertion from prolonged static or awkward postures, initial encounter; Y93.89 Activity, other specified; Y92.414 Local residential or business street as the place of occurrence of the external cause; Y99.9 Unspecified external cause status
CPT/HCPCS: 29125; 73130; 99283; 99284

== ENCOUNTER 2022-10-03 10:17 | Emergency (ER) | payer MEDICAID, SELFPAY ==
--- NOTE | ~2022-10-03 | XR_ITS ---
EXAMINATION: XR HAND, RIGHT CLINICAL INFORMATION: Pain COMPARISON: None available at the time of this dictation. TECHNIQUE: Frontal lateral oblique views of the hand were obtained. FINDINGS: An old healed fifth metacarpal neck boxer fracture. There is no new fracture or dislocation. Radiocarpal, intercarpal, carpometacarpal, metacarpophalangeal and interphalangeal joints are intact. There are no osteolytic or osteoblastic lesions. There are no bone erosions. Surrounding soft tissue unremarkable. XR/XR hand RT 2V IMPRESSION: * Old healed Boxer's fracture fifth metacarpal neck. * No acute fracture.
[2022-10-03 10:50] VITALS: BP 119/70; PULSE 74; RESP 16; TEMP 36.6; O2SAT 100; BMI 30.4
--- NOTE | 2022-10-03 10:58 | ED_ITS ---
HPI - Extremity Problem General Chief complaint: Extremity Injury, Upper Stated complaint: R hand pain Time Seen by Provider: 10/03/22 10:52 Source: patient Mode of arrival: ambulatory Limitations: no limitations History of Present Illness HPI Narrative: This is a 32-year-old female who is right-hand dominant who presents to the ER with complaints right hand pain. Patient reports last evening she was wrestling with her children when her 3rd through 5th digits on the right hand were forced into flexion. Since then patient has pain and swelling. Patient denies any associated weakness, numbness or tingling of extremity. Related Data Home Medications Medication Instructions Recorded Confirmed cetirizine 10 mg tablet 1 tab PO BEDTIME 10/29/20 06/24/22 albuterol sulfate 90 mcg/actuation 2 puff PO Q6H PRN Shortness Of 07/20/21 06/24/22 aerosol inhaler (ProAir HFA) Breath Or Wheezing sumatriptan succinate 50 mg tablet 50 mg PO Q2H PRN Migraine Headache 07/20/21 06/24/22 verapamil 360 mg 24 hr 1 cap PO BEDTIME 07/20/21 06/24/22 capsule,extended release buspirone 7.5 mg tablet 1 tab PO BID 06/24/22 06/24/22 cyanocobalamin (vitamin B-12) 1 tab PO DAILY 06/24/22 06/24/22 1,000 mcg tablet divalproex 250 mg tablet,extended 1 tab PO BEDTIME 06/24/22 06/24/22 release 24 hr esomeprazole magnesium 40 mg 40 mg PO DAILY@0630 06/24/22 06/24/22 capsule,delayed release (Nexium) fluoxetine 40 mg capsule 1 cap PO BEDTIME 06/24/22 06/24/22 fluticasone propionate 220 1 puff inhalation BID 06/24/22 06/24/22 mcg/actuation HFA aerosol inhaler (Flovent HFA) hydroxyzine HCl 25 mg tablet 1 tab PO BID PRN panic attack 06/24/22 06/24/22 metoprolol tartrate 25 mg tablet 1 tab PO BID 06/24/22 06/24/22 vitamin with calcium 1 tab PO BEDTIME 06/24/22 06/24/22 no.72-iron 27 mg-folic acid 1 mg tablet (WesTab Plus) sennosides 8.6 mg tablet (senna) 2 tab PO BEDTIME 06/24/22 06/24/22 trazodone 50 mg tablet 1 tab PO BEDTIME PRN Insomnia 06/24/22 06/24/22 Previous Rx's Medication Instructions Recorded ondansetron 4 mg disintegrating 4 mg PO Q6H PRN nausea and 05/30/22 tablet vomiting #10 tabs Allergies Allergy/AdvReac Type Severity Reaction Status Date / Time Iodinated Contrast Media Allergy Swelling Verified 09/26/22 11:19 Review of Systems Review of Systems: Yes all other systems are reviewed and are negative Constitutional: Constitutional: Reports no additional constitutional complaints, Denies body ache(s), Denies chills, Denies fever(s), Denies headache(s) and Denies weakness Eyes: Eyes: Reports no additional eye complaints and Denies change in vision ENT: Reports system reviewed and no additional complaints, except as documented, Denies dizziness, Denies headache(s), Denies nasal congestion, Denies nasal discharge and Denies neck pain Cardiovascular: Cardiovascular: Reports no additional cardiovascular complaints, Denies chest pain, Denies leg edema and Denies dyspnea Respiratory: Respiratory: Reports no additional respiratory complaints, Denies cough and Denies dyspnea Gastrointestinal: Gastrointestinal: Reports no additional gastrointestinal complaints, Denies abdominal pain, Denies diarrhea, Denies nausea and Denies vomiting Genitourinary: Genitourinary: Reports no additional female genitourinary complaints and Denies urinary incontinence Musculoskeletal: Musculoskeletal: Reports no additional musculoskeletal complaints, Denies back pain, Reports arthralgias, Reports joint swelling, Denies limited range of motion, Denies neck pain, Denies numbness and Denies tingling Integumentary/Breasts: Skin/Breast: Reports system reviewed and no additional complaints, except as docu and Denies rash Neurologic: Reports system reviewed and no additional complaints, except as documented, Denies Abnormal speech present, Denies dizziness, Denies headache(s), Denies numbness, Denies tingling and Denies weakness PMFSH Past Medical History Attestation statement: The following information was validated with the patient. Source: old records reviewed and nursing notes reviewed Medical History Anxiety Asthma COVID Migraine Palpitations Panic attack Surgical History H/O dilation and curettage Family History Family History Maternal Grandfather Skin cancer Paternal Grandmother Colon cancer Social History Social History Household Members: Children Housing: Apartment Do you presently have visiting nurse or other home services: No Alcohol intake: former Patient Tobacco Use Status: Former Tobacco user Tobacco use type: Cigarette Advance Directives: No Advance Directives Information Provided: Yes Physical Exam Vital Signs: Vital Signs: Last Vital Signs Temp 97.9 F 10/03/22 10:50 Pulse 74 10/03/22 10:50 Resp 16 10/03/22 10:50 BP 119/70 10/03/22 10:50 Pulse Ox 100 10/03/22 10:50 O2 Del Method Nasal Cannula 10/03/22 10:50 BMI result Body Mass Index 30.4 Const: General: cooperative, healthy appearing, comfortable and no acute dist ress Orientation/consciousness: patient oriented x3 Limitations: no limitations HEENT: Head: Yes normal to inspection Ears: hearing grossly normal bilaterally General nose exam: Normal external nose present Face and sinus: Yes normal facial exam Mouth: Normal oral and palatal mucosa present Throat: Yes posterior oropharynx normal Eyes: General: appearance normal, both eyes and all related structures Pupils: Equal, round and reactive pupils present Neck: Neck: Yes normal visual inspection Chest: Chest palpation & inspection: normal inspection of the chest Resp: Effort & Inspection: normal respiratory effort Auscultation: clear to auscultation bilaterally Cardio: Rate: regular rate Rhythm: regular rhythm Peripheral pulses: Peripheral pulses 2+ throughout GI: Inspection: Yes normal to inspection Palpation (GI): Soft to palpation and nontender Auscultation: normal bowel sounds Back/Spine/Pelvis: Thoracic/Lumbar Spine: thoracic and lumbar spine normal to inspection Skin: General skin exam: no rashes or lesions noted Neuro: General: patient oriented x3, no focal motor deficits and normal sensation to monofilament Cranial nerves: Yes Equal, round and reactive pupils present Cognition (Neuro): normal cognition Speech: No Abnormal speech present Gait exam (Neuro): Normal gait present Motor exam (neuro): 5/5 motor strength present throughout Extrem: General: Yes normal to inspection Hand/finger images: 1. Tenderness on palpation with ecchymosis. Patient has full range of motion both passively and actively of the hand. Neurovascular intact distally. Sensation normal. No tenderness on palpation over the wrist Course Course Course Narrative: X-ray shows no fracture. Likely contusion or sprain. Reviewed rice. Reviewed worrisome signs and symptoms of when to return to the emergency room. Comfortable plan for discharge home. Medical Decision Making Medical Decision Making [facility] Narrative: 32-year-old female here with right hand pain after a forced flexion injury of digits 3 through 5 last evening. Will check x-rays Differential Diagnosis Differential Diagnoses: The differential diagnosis associated with the pre sentation includes Fracture, sprain, contusion Independent Interpretation I performed an independent interpretation of an: Plain X-Ray Interpretation: I independently reviewed the x-ray and agree with radiologist's report Radiology Impression Discussion of test interpretation with radiology: I have reviewed the radiologist's reading. Radiologist Impression: [place] [id number] XRay Report Signed Patient: Rafita Kuo MR#: [id number] : 1990 Acct:[id number] Age/Sex: 32 / F ADM Date: 10/03/22 Loc: .ED Attending Dr: Ordering Physician: Lennie Richardson NP Date of Service: 10/03/22 Procedure(s): XR hand RT 2V Accession Number(s): [id number] cc: Lennie Richardson NP~ EXAMINATION: XR HAND, RIGHT CLINICAL INFORMATION: Pain COMPARISON: None available at the time of this dictation. TECHNIQUE: Frontal lateral oblique views of the hand were obtained. FINDINGS: An old healed fifth metacarpal neck boxer fracture. There is no new fracture or dislocation. Radiocarpal, intercarpal, carpometacarpal, metacarpophalangeal and interphalangeal joints are intact. There are no osteolytic or osteoblastic lesions. There are no bone erosions. Surrounding soft tissue unremarkable. XR/XR hand RT 2V IMPRESSION: ? *? Old healed Boxer's fracture fifth metacarpal neck. ? *? No acute fracture. ? Discharge Plan Discharge Clinical Impression: Hand sprain Patient Disposition: Home, Self-Care Instructions: Sprain (ED) Additional Instructions: X-ray show no fracture Ice to the area Motrin or Tylenol for pain Prescriptions: No Action cetirizine 10 mg tablet 1 tab PO BEDTIME fluoxetine 40 mg capsule 1 cap PO BEDTIME trazodone 50 mg tablet 1 tab PO BEDTIME PRN (Reason: Insomnia) cyanocobalamin (vitamin B-12) 1,000 mcg tablet 1 tab PO DAILY buspirone 7.5 mg tablet 1 tab PO BID hydroxyzine HCl 25 mg tablet 1 tab PO BID PRN (Reason: panic attack) fluticasone propionate [Flovent HFA] 220 mcg/actuation HFA aerosol inhaler 1 puff INHALATION BID divalproex 250 mg tablet extended release 24 hr 1 tab PO BEDTIME metoprolol tartrate 25 mg tablet 1 tab PO BID Rx Instructions: take with food WesTab Plus 27 mg iron- 1 mg tablet 1 tab PO BEDTIME sennosides [senna] 8.6 mg tablet 2 tab PO BEDTIME esomeprazole magnesium [Nexium] 40 mg capsule,delayed release(DR/EC) 40 mg PO DAILY@0630 verapamil 360 mg capsule,ext rel. pellets 24 hr 1 cap PO BEDTIME sumatriptan succinate 50 mg tablet 50 mg PO Q2H PRN (Reason: Migraine Headache) Rx Instructions: MAX DOSE 200MG / 24 HOURS albuterol sulfate [ProAir HFA] 90 mcg/actuation HFA aerosol inhaler 2 puff PO Q6H PRN (Reason: Shortness Of Breath Or Wheezing) ondansetron 4 mg tablet,disintegrating 4 mg PO Q6H PRN (Reason: nausea and vomiting) Qty: 10 0RF Referrals: [facility] [Primary Care Provider] - 1 week (For persistent symptoms) Stand Alone Forms: Work/School Release
== END 2022-10-03 12:48 | disposition home or self-care (01) ==
PROVIDERS: Emergency Provider Student in an Organized Health Care Education/Training Program
DX: S63.91XA Sprain of unspecified part of right wrist and hand, initial encounter (principal); X50.9XXA Other and unspecified overexertion or strenuous movements or postures, initial encounter; Y93.83 Activity, rough housing and horseplay; Y92.039 Unspecified place in apartment as the place of occurrence of the external cause; Y99.9 Unspecified external cause status
CPT/HCPCS: 73120; 99283

== ENCOUNTER 2022-11-26 19:42 | Emergency (ER) | payer OTHER, MEDICAID, SELFPAY ==
[2022-11-26 19:56] VITALS: BP 125/93; PULSE 82; RESP 16; TEMP 36.5; O2SAT 98; BMI 30.1
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
[2022-11-26] MEDS: Acetaminophen 325 MG TABLET 975 MG PO (20:40)
--- NOTE | 2022-11-26 20:43 | PC.NURSE ---
pt medicated per MAR
== END 2022-11-26 20:58 | disposition home or self-care (01) ==
PROVIDERS: Emergency Provider Emergency Medicine
DX: Z04.1 Encounter for examination and observation following transport accident (principal); M79.18 Myalgia, other site
CPT/HCPCS: 99283

== ENCOUNTER 2022-11-28 13:26 | Emergency (ER) | payer MEDICAID, SELFPAY ==
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
[2022-11-28 13:50] VITALS: BP 119/86; PULSE 67; RESP 18; TEMP 36.4; O2SAT 98; BMI 30.1
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
[2022-11-28] MEDS: Ketorolac Tromethamine 30 MG/ML VIAL IM (16:51)
== END 2022-11-28 16:54 | disposition home or self-care (01) ==
PROVIDERS: Emergency Provider Emergency Medicine
DX: S40.022A Contusion of left upper arm, initial encounter (principal); M79.602 Pain in left arm; V43.52XA Car driver injured in collision with other type car in traffic accident, initial encounter; Y93.9 Activity, unspecified; Y92.410 Unspecified street and highway as the place of occurrence of the external cause; Y99.9 Unspecified external cause status; Z79.899 Other long term (current) drug therapy
CPT/HCPCS: 73060; 96372; 99283; 99284; J1885

== ENCOUNTER 2022-12-13 13:58 | Emergency (ER) | payer MEDICAID, SELFPAY ==
[2022-12-13 14:05] VITALS: BP 129/86; PULSE 100; O2SAT 99
[2022-12-13 14:16] VITALS: PULSE 78; RESP 12; TEMP 36.4; O2SAT 99; BMI 31.2
[2022-12-13 14:26] VITALS: BP 130/82; PULSE 78; RESP 13; TEMP 36.4; O2SAT 99
--- NOTE | 2022-12-13 14:39 | ED.WEAKNESS ---
HPI - Weakness General Chief complaint: Weakness Stated complaint: weakness. Heat exhaustion? Time Seen by Provider: 12/13/22 14:34 Source: patient Mode of arrival: ambulatory Limitations: no limitations History of Present Illness HPI Narrative: patient with anxiety and panic attacks, with a history of PVCs, Patient feeling depressed crying, Patient denies being suicidal, patient to speak to her therapist tomorrow. MD Complaint: generalized weakness Onset (ago): day(s) Duration: constant Related Data Home Medications Medication Instructions Recorded Confirmed cetirizine 10 mg tablet 1 tab PO BEDTIME 10/29/20 06/24/22 albuterol sulfate 90 mcg/actuation 2 puff PO Q6H PRN Shortness Of 07/20/21 06/24/22 aerosol inhaler (ProAir HFA) Breath Or Wheezing sumatriptan succinate 50 mg tablet 50 mg PO Q2H PRN Migraine Headache 07/20/21 06/24/22 verapamil 360 mg 24 hr 1 cap PO BEDTIME 07/20/21 06/24/22 capsule,extended release buspirone 7.5 mg tablet 1 tab PO BID 06/24/22 06/24/22 cyanocobalamin (vitamin B-12) 1 tab PO DAILY 06/24/22 06/24/22 1,000 mcg tablet divalproex 250 mg tablet,extended 1 tab PO BEDTIME 06/24/22 06/24/22 release 24 hr esomeprazole magnesium 40 mg 40 mg PO DAILY@0630 06/24/22 06/24/22 capsule,delayed release (Nexium) fluoxetine 40 mg capsule 1 cap PO BEDTIME 06/24/22 06/24/22 fluticasone propionate 220 1 puff inhalation BID 06/24/22 06/24/22 mcg/actuation HFA aerosol inhaler (Flovent HFA) hydroxyzine HCl 25 mg tablet 1 tab PO BID PRN panic attack 06/24/22 06/24/22 metoprolol tartrate 25 mg tablet 1 tab PO BID 06/24/22 06/24/22 vitamin with calcium 1 tab PO BEDTIME 06/24/22 06/24/22 no.72-iron 27 mg-folic acid 1 mg tablet (WesTab Plus) sennosides 8.6 mg tablet (senna) 2 tab PO BEDTIME 06/24/22 06/24/22 trazodone 50 mg tablet 1 tab PO BEDTIME PRN Insomnia 06/24/22 06/24/22 Previous Rx's Medication Instructions Recorded ondansetron 4 mg disintegrating 4 mg PO Q6H PRN nausea and 05/30/22 tablet vomiting #10 tabs acetaminophen 500 mg tablet 500 mg PO Q6H PRN pain #20 tabs 11/26/22 cyclobenzaprine 10 mg tablet 10 mg PO TID PRN muscle spasm #7 11/26/22 tabs ibuprofen 600 mg tablet 600 mg PO Q6H PRN pain #30 tabs 11/28/22 Allergies Allergy/AdvReac Type Severity Reaction Status Date / Time Iodinated Contrast Media Allergy Swelling Verified 11/28/22 13:52 Review of Systems Review of Systems: Yes all other systems are reviewed and are negative Neurologic: Denies Sensory deficit (Neuro) [facility] Past Medical History Medical History Anxiety Asthma COVID Migraine Palpitations Panic attack Surgical History H/O dilation and curettage Family History Family History Maternal Grandfather Skin cancer Paternal Grandmother Colon cancer Social History Social History Household Members: Children Housing: Apartment Do you presently have visiting nurse or other home services: No Alcohol intake: never Patient Tobacco Use Status: Former Tobacco user Tobacco use type: Cigarette Smoked in Last 30 Days: No Use of substances other than those prescribed or required for medical reasons: No Advance Directives: No Advance Directives Information Provided: No Patient : No Physical Exam Vital Signs: Vital Signs: Last Vital Signs Temp 97.5 F 12/13/22 14:26 Pulse 78 12/13/22 14:26 Resp 13 12/13/22 14:26 BP 130/82 12/13/22 14:26 Pulse Ox 99 12/13/22 14:26 O2 Del Method Room Air 12/13/22 14:26 BMI result Body Mass Index 31.2 Const: Other: very anxious, non focal General: healthy appearing Nutritional Appearance: average body habitus Orientation/consciousness: oriented to person and patient oriented x3 Limitations: no limitations HEENT: Head: Yes normal to inspection Ears: external ears normal General nose exam: Normal external nose present Mouth: Normal oral and palatal mucosa present and oropharynx normal Throat: Yes posterior oropharynx normal Eyes: General: appearance normal, both eyes and all related structures Neck: Other: supple Neck: Yes normal visual inspection Chest: Chest palpation & inspection: normal inspection of the chest Resp: Auscultation: clear to auscultation bilaterally Cardio: Jugular venous distension: no JVD Rate: Other (frequent early beats) Heart sounds: S1 normal heart sound present and S2 normal heart sound present GI: Inspection: Yes normal to inspection Palpation (GI): Soft to palpation, nontender and No hepatosplenomegaly present Auscultation: normal bowel sounds : General: Yes no CVA tenderness Back/Spine/Pelvis: Back: no CVA tenderness Skin: General skin exam: no rashes or lesions noted Neuro: General: oriented to person and patient oriented x3 Cranial nerves: Yes CN's II-XII intact bilaterally Motor exam (neuro): 5/5 motor strength present throughout Sensory Exam: No Sensory deficit (Neuro) Extrem: General: Yes normal to inspection Psych: Appearance: grossly normal Course Reevaluation(s) Reevaluation #1: nonfocal neuro exam, normal labs, impression is anxiety Time: 16:23 Medical Decision Making Differential Diagnosis Differential Diagnoses: The differential diagnosis associated with the presentation includes (CVA, neuropathy, anxiety, electrolyte abnormality) Admission/Observation Consideration of admission/observation: Escalation of care including admission/observation considered (Upon arrival this patient with numbness was considered for admissioon) Lab Data MDM Lab Attestation statement: I reviewed the patient's lab results. (normal electrolytes no anemia) 12/13/22 14:58 12/13/22 14:58 Labs: Lab Results 12/13/22 12/13/22 12/13/22 Range/Units 14:55 14:58 14:58 WBC 7.9 (4.8-10.8) X10*3/uL RBC 4.88 (4.20-5.50) X10*6/uL Hgb 13.2 (12.0-16.0) g/dl Hct 39.5 (37.0-47.0) % MCV 80.9 (80.0-98.0) fL MCH 27.0 (27.0-33.0) pg MCHC 33.4 (31.0-35.0) g/dl RDW 13.2 (11.0-16.0) % Plt Count 299 (160-400) X10*3/uL MPV 10.4 (9.4-12.3) fL Immature Gran % (Auto) 0.4 (0.0-0.4) % Neut % (Auto) 60.1 (45-73) % Lymph % (Auto) 31.6 (20-40) % [place] % (Auto) 6.6 (2-11) % Eos % (Auto) 0.8 (0-4) % Baso % (Auto) 0.5 (0-2) % Lymph # (Auto) 2.5 (1.2-4.9) X10*3/uL [place] # (Auto) 0.5 (0.1-1.2) X10*3/uL Eos # (Auto) 0.1 (0.0-0.4) X10*3/uL Baso # (Auto) 0.0 (0.0-0.2) X10*3/uL Abs Immat Gran (auto) 0.03 (0.00-0.03) X10*3/uL Absolute Neuts (auto) 4.8 (2.0-8.3) x10*3/uL Absolute Nucleated RBC 0.000 (0.0-0.012) X10*3/uL Nucleated RBC % (auto) 0.0 (0.0-0.2) /100WBC Sodium 144 (135-145) mmol/L Potassium 3.4 (3.3-5.1) mmol/L Chloride 113 H (96-108) mmol/L Carbon Dioxide 22 (22-29) mmol/L Anion Gap 12 (12-20) BUN 5 L (9-16) mg/dL Creatinine 0.76 (0.5-1.4) mg/dL Estim Creat Clear Calc 104.4 Estimated GFR > 60 Random Glucose 90 (60-115) mg/dL Calcium 9.8 (8.4-10.2) mg/dL Urine Color Yellow Urine Appearance Clear Urine pH 7.5 (5.0-9.0) Ur Specific [place] <= 1.005 (1.005-1.025) Urine Protein Negative (Neg-Trace) mg/dL Urine Glucose (UA) Negative (Negative) mg/dL Urine Ketones Negative (Negative) mg/dL Urine Blood Large (3+) H (Negative) Urine Nitrite Negative (Negative) Ur Leukocyte Esterase Negative (Negative) Urine RBC 0-2 (0-2) /HPF Urine WBC 0-5 (0-5) /HPF Ur Squamous Epith Cells 0-2 (0-2) /HPF Urine Bacteria None Seen (None Seen) Hyaline Casts 0-2 (0-2) /LPF Independent Interpretation I performed an independent interpretation of an: EKG (Sinus 70 with frequent pvcs, no st or twave changes) Independent Historian Clinical information obtained from an independent historian. History obtained from or confirmed by: Friend Tests considered The following testing was considered but not selected: I considered a head CT but patient is nonfocal Chronic Conditions Patient?s care impacted by: Other (depression) Discharge Plan Discharge Clinical Impression: Distal paresthesia, Anxiety Patient Disposition: Home, Self-Care Instructions: Paresthesia (ED), Anxiety (ED) Prescriptions: No Action cetirizine 10 mg tablet 1 tab PO BEDTIME fluoxetine 40 mg capsule 1 cap PO BEDTIME trazodone 50 mg tablet 1 tab PO BEDTIME PRN (Reason: Insomnia) cyanocobalamin (vitamin B-12) 1,000 mcg tablet 1 tab PO DAILY buspirone 7.5 mg tablet 1 tab PO BID hydroxyzine HCl 25 mg tablet 1 tab PO BID PRN (Reason: panic attack) fluticasone propionate [Flovent HFA] 220 mcg/actuation HFA aerosol inhaler 1 puff INHALATION BID divalproex 250 mg tablet extended release 24 hr 1 tab PO BEDTIME metoprolol tartrate 25 mg tablet 1 tab PO BID Rx Instructions: take with food WesTab Plus 27 mg iron- 1 mg tablet 1 tab PO BEDTIME sennosides [senna] 8.6 mg tablet 2 tab PO BEDTIME esomeprazole magnesium [Nexium] 40 mg capsule,delayed release(DR/EC) 40 mg PO DAILY@0630 verapamil 360 mg capsule,ext rel. pellets 24 hr 1 cap PO BEDTIME sumatriptan succinate 50 mg tablet 50 mg PO Q2H PRN (Reason: Migraine Headache) Rx Instructions: MAX DOSE 200MG / 24 HOURS albuterol sulfate [ProAir HFA] 90 mcg/actuation HFA aerosol inhaler 2 puff PO Q6H PRN (Reason: Shortness Of Breath Or Wheezing) acetaminophen 500 mg tablet 500 mg PO Q6H PRN (Reason: pain) Qty: 20 0RF cyclobenzaprine 10 mg tablet 10 mg PO TID PRN (Reason: muscle spasm) Qty: 7 0RF ibuprofen 600 mg tablet 600 mg PO Q6H PRN (Reason: pain) Qty: 30 0RF ondansetron 4 mg tablet,disintegrating 4 mg PO Q6H PRN (Reason: nausea and vomiting) Qty: 10 0RF Referrals: [facility] [Primary Care Provider] - 3 days
[2022-12-13 15:10] LABS: MANUAL DIFF FLAG NO
[2022-12-13 15:15] LABS: Basophils Percent Auto 0.5 % (0-2); Eosinophils Absolute Auto 0.1 X10*3/uL (0.0-0.4); Eosinophils Percent Auto 0.8 % (0-4); Hematocrit 39.5 % (37.0-47.0); Hemoglobin 13.2 g/dl (12.0-16.0); Imm Gran Abs Auto 0.03 X10*3/uL (0.00-0.03); Imm Gran Pct Auto 0.4 % (0.0-0.4); Lymphocytes Absolute Auto 2.5 X10*3/uL (1.2-4.9); Lymphocytes Percent Auto 31.6 % (20-40); Mean Corpuscular HGB Conc 33.4 g/dl (31.0-35.0); Mean Corpuscular Volume 80.9 fL (80.0-98.0); Mean Platelet Volume 10.4 fL (9.4-12.3); Monocytes Absolute Auto 0.5 X10*3/uL (0.1-1.2); Monocytes Percent Auto 6.6 % (2-11); Neutrophils Absolute Auto 4.8 x10*3/uL (2.0-8.3); Neutrophils Percent Auto 60.1 % (45-73); Platelet Count 299 X10*3/uL (160-400); Red Blood Count 4.88 X10*6/uL (4.20-5.50); Red Cell Distribution Width 13.2 % (11.0-16.0); White Blood Count 7.9 X10*3/uL (4.8-10.8)
[2022-12-13 15:23] LABS: Anion Gap 12 (12-20); Blood Urea Nitrogen 5 mg/dL (9-16); Calcium 9.8 mg/dL (8.4-10.2); Carbon Dioxide 22 mmol/L (22-29); Chloride 113 mmol/L (96-108); Creatinine Clr Calc Pharmacy 104.4; Estimated Glomerular Filt Rate > 60; Glucose Random 90 mg/dL (60-115); Potassium 3.4 mmol/L (3.3-5.1); Sodium 144 mmol/L (135-145)
[2022-12-13 16:32] VITALS: BP 116/74; PULSE 79; RESP 13; TEMP 36.4; O2SAT 99
--- NOTE | 2022-12-13 16:41 | PC.NURSE ---
pt d/c, piv out, vss. wheelchair to lobby safely. no c/o pain/n/v/cp.
== END 2022-12-13 16:41 | disposition home or self-care (01) ==
PROVIDERS: Emergency Provider Emergency Medicine
DX: R20.2 Paresthesia of skin (principal); F41.9 Anxiety disorder, unspecified; F32.A Depression, unspecified; Z87.891 Personal history of nicotine dependence; Z79.899 Other long term (current) drug therapy
CPT/HCPCS: 36415; 80048; 81001; 85025; 93005; 99283; 99284

== ENCOUNTER 2023-01-13 15:20 | Emergency (ER) | payer MEDICAID, SELFPAY ==
[2023-01-13 15:35] VITALS: BP 149/89; PULSE 72; RESP 18; TEMP 36.5; O2SAT 100; BMI 30.1
--- NOTE | 2023-01-13 15:35 | ED_ITS ---
HPI - Dental/Oral General Chief complaint: Dental/Oral Stated complaint: gum pain Time Seen by Provider: 01/13/23 17:12 Source: patient and RN notes reviewed Mode of arrival: ambulatory Limitations: no limitations History of Present Illness HPI Narrative: This is a 32-year-old female presenting to the emergency department for evaluation of facial pain since yesterday. Patient reports that she has tenderness to palpation along the gums of her front teeth. She states that she attempted to follow-up with her dentist yesterday and the day before however they have no openings until March. She states that she has had root canal from for T several months ago. She denies any fevers, chills, headaches, difficulty swallowing, sore throat, ear pain, nausea, vomiting, or diarrhea. Denies taking medications at home to treat current symptoms. No other complaints or concerns at this time. MD Complaint: tooth pain Teeth map: 1. No obvious dental decay noted to teeth numbers 7 through 10. Tenderness to palpation along the outer gum line without any fluctuance, drainage, or obvious abscess. Related Data Home Medications Medication Instructions Recorded Confirmed cetirizine 10 mg tablet 1 tab PO BEDTIME 10/29/20 06/24/22 albuterol sulfate 90 mcg/actuation 2 puff PO Q6H PRN Shortness Of 07/20/21 06/24/22 aerosol inhaler (ProAir HFA) Breath Or Wheezing sumatriptan succinate 50 mg tablet 50 mg PO Q2H PRN Migraine Headache 07/20/21 06/24/22 verapamil 360 mg 24 hr 1 cap PO BEDTIME 07/20/21 06/24/22 capsule,extended release buspirone 7.5 mg tablet 1 tab PO BID 06/24/22 06/24/22 cyanocobalamin (vitamin B-12) 1 tab PO DAILY 06/24/22 06/24/22 1,000 mcg tablet divalproex 250 mg tablet,extended 1 tab PO BEDTIME 06/24/22 06/24/22 release 24 hr esomeprazole magnesium 40 mg 40 mg PO DAILY@0630 06/24/22 06/24/22 capsule,delayed release (Nexium) fluoxetine 40 mg capsule 1 cap PO BEDTIME 06/24/22 06/24/22 fluticasone propionate 220 1 puff inhalation BID 06/24/22 06/24/22 mcg/actuation HFA aerosol inhaler (Flovent HFA) hydroxyzine HCl 25 mg tablet 1 tab PO BID PRN panic attack 06/24/22 06/24/22 metoprolol tartrate 25 mg tablet 1 tab PO BID 06/24/22 06/24/22 vitamin with calcium 1 tab PO BEDTIME 06/24/22 06/24/22 no.72-iron 27 mg-folic acid 1 mg tablet (WesTab Plus) sennosides 8.6 mg tablet (senna) 2 tab PO BEDTIME 06/24/22 06/24/22 trazodone 50 mg tablet 1 tab PO BEDTIME PRN Insomnia 06/24/22 06/24/22 Previous Rx's Medication Instructions Recorded ondansetron 4 mg disintegrating 4 mg PO Q6H PRN nausea and 05/30/22 tablet vomiting #10 tabs acetaminophen 500 mg tablet 500 mg PO Q6H PRN pain #20 tabs 11/26/22 cyclobenzaprine 10 mg tablet 10 mg PO TID PRN muscle spasm #7 11/26/22 tabs ibuprofen 600 mg tablet 600 mg PO Q6H PRN pain #30 tabs 11/28/22 acetaminophen 325 mg tablet 650 mg PO Q6H PRN pain #30 tabs 01/13/23 (Tylenol) amoxicillin 875 mg-potassium 1 tab PO BID 7 days #14 tabs 01/13/23 clavulanate 125 mg tablet Allergies Allergy/AdvReac Type Severity Reaction Status Date / Time Iodinated Contrast Media Allergy Swelling Verified 01/13/23 15:38 Review of Systems Review of Systems: Yes all other systems are reviewed and are negative Constitutional: Constitutional: Reports as per [facility] Past Medical History Medical History Anxiety Asthma COVID Migraine Palpitations Panic attack Surgical History H/O dilation and curettage Family History Family History Maternal Grandfather Skin cancer Paternal Grandmother Colon cancer Social History Social History Household Members: Children Housing: Apartment Do you presently have visiting nurse or other home services: No Alcohol intake: never Patient Tobacco Use Status: Former Tobacco user Tobacco use type: Cigarette Advance Directives: No Advance Directives Information Provided: No Physical Exam Vital Signs: Vital Signs: Last Vital Signs Temp 97.7 F 01/13/23 15:35 Pulse 72 01/13/23 15:35 Resp 18 01/13/23 15:35 BP 149/89 H 01/13/23 15:35 Pulse Ox 100 01/13/23 15:35 O2 Del Method Room Air 01/13/23 15:35 BMI result Body Mass Index 30.1 Const: General: cooperative, comfortable and no acute distress Orientation/consciousness: patient oriented x3 Limitations: no limitations HEENT: Head: Yes normal to inspection, Yes normocephalic and Yes atraumatic Ears: hearing grossly normal bilaterally and TM's normal bilaterally General nose exam: Normal external nose present Face and sinus: Yes normal facial exam Mouth: Normal oral and palatal mucosa present, oropharynx normal and moist mucous membranes Teeth image: 1. No obvious dental decay noted to teeth numbers 7 through 10. Tenderness to palpation along the outer gum line without any fluctuance, drainage, or obvious abscess. Throat: Yes posterior oropharynx normal Eyes: General: appearance normal, both eyes and all related structures Eyelids: Yes eyelids normal Conjunctivae: conjunctivae normal Sclerae: sclerae normal Pupils: Equal, round and reactive pupils present EOM: EOMs intact bilaterally Neck: Neck: Yes normal visual inspection, Yes full ROM and Yes no lymphadenopathy Lymphatic: no lymphadenopathy noted Chest: Chest palpation & inspection: normal inspection of the chest Resp: Effort & Inspection: normal respiratory effort and able to speak in complete sentences Auscultation: clear to auscultation bilaterally, no crackles, no rales, no rhonchi and no wheezes Cardio: Rate: regular rate Rhythm: regular rhythm Heart sounds: S1 normal heart sound present and S2 normal heart sound present GI: Inspection: Yes normal to inspection Skin: General skin exam: no rashes or lesions noted Trauma: no lacerations or abrasions Wounds: no wounds Neuro: General: patient oriented x3 and moves all extremities Cranial nerves: Yes Equal, round and reactive pupils present Extrem: General: Yes normal to inspection Right upper extremity: normal to inspection Left upper extremity: normal to inspection Right lower extremity: normal to inspection Left lower extremity: normal to inspection Course Course Course Narrative: This is an RME: Additional HPI, ROS, PE not included below will be deferred to primary provider. Patient is a 32-year-old female who presents to emergency department with complaint of dental pain onset yesterday, upper frontal region. Had a root canal to tooth #7, 4 months ago, with implant in place. Pain is wore in this region and radiates. Attempted to see dentist yesterday, presenting to clinic but could not get an appointment until March. Has tried acetaminophen without improvement. unable to tolerate eating due to pain Medications Administered Discontinued Medications Generic Name Dose Route Start Last Admin Trade Name Freq PRN Reason Stop Dose Admin Ibuprofen 600 mg 01/13/23 15:39 01/13/23 17:15 Ibuprofen 600 Mg Tablet PO 01/13/23 15:40 600 mg ONCE ONE Administration Medical Decision Making Medical Decision Making [facility] Narrative: 32-year-old female presenting to the emergency department with complaints of d ental pain since yesterday. On examination, patient does not have an obvious dental abscess. Patient has tenderness to palpation along the outer gum line without any fluctuance or drainage. Patient has no mandibular tenderness to suggest osteomyelitis at this time. Patient is afebrile, labs were obtained without any signs of leukocytosis. Patient is nontoxic appearing. Will discharge patient on course of antibiotics. Urged the importance of following up with dentist. Encouraged Tylenol and ibuprofen as needed. Given strict return precautions if any new or worsening symptoms occur. Patient understands and agrees with plan. Patient stable for discharge. Differential Diagnosis Differential Diagnoses: The differential diagnosis associated with the presentation includes Dental abscess, dental decay, dental caries, dental fracture, osteomyelitis - unlikely Lab Data [facility] Lab Attestation statement: I reviewed the patient's lab results. No leukocytosis, stable H&H, electrolytes normal. 01/13/23 15:59 01/13/23 15:59 Labs: Lab Results 01/13/23 01/13/23 Range/Units 15:59 15:59 WBC 7.8 (4.8-10.8) X10*3/uL RBC 4.74 (4.20-5.50) X10*6/uL Hgb 13.1 (12.0-16.0) g/dl Hct 40.1 (37.0-47.0) % MCV 84.6 (80.0-98.0) fL MCH 27.6 (27.0-33.0) pg MCHC 32.7 (31.0-35.0) g/dl RDW 13.0 (11.0-16.0) % Plt Count 324 (160-400) X10*3/uL MPV 10.4 (9.4-12.3) fL Immature Gran % (Auto) 0.3 (0.0-0.4) % Neut % (Auto) 63.9 (45-73) % Lymph % (Auto) 28.6 (20-40) % [place] % (Auto) 5.4 (2-11) % Eos % (Auto) 1.4 (0-4) % Baso % (Auto) 0.4 (0-2) % Lymph # (Auto) 2.2 (1.2-4.9) X10*3/uL [place] # (Auto) 0.4 (0.1-1.2) X10*3/uL Eos # (Auto) 0.1 (0.0-0.4) X10*3/uL Baso # (Auto) 0.0 (0.0-0.2) X10*3/uL Abs Immat Gran (auto) 0.02 (0.00-0.03) X10*3/uL Absolute Neuts (auto) 5.0 (2.0-8.3) x10*3/uL Absolute Nucleated RBC 0.000 (0.0-0.012) X10*3/uL Nucleated RBC % (auto) 0.0 (0.0-0.2) /100WBC Sodium 140 (135-145) mmol/L Potassium 4.0 (3.3-5.1) mmol/L Chloride 107 (96-108) mmol/L Carbon Dioxide 22 (22-29) mmol/L Anion Gap 15 (12-20) BUN 6 L (9-16) mg/dL Creatinine 0.79 (0.5-1.4) mg/dL Estim Creat Clear Calc 98.6 Estimated GFR > 60 Random Glucose 91 (60-115) mg/dL Calcium 9.5 (8.4-10.2) mg/dL Prescription Management I considered prescription management with: Antibiotic Discharge Plan Discharge Clinical Impression: Dental abscess Patient Disposition: Home, Self-Care Instructions: Dental Abscess (ED) Additional Instructions: Please take prescribed medication as directed. Finish the entire course even if your feeling better. Take Tylenol as directed as needed for your pain. Please follow-up with a dentist as soon as possible. If any new or worsening symptoms occur, including but not limited to worsening pain, fevers, please return for re-evaluation Prescriptions: New amoxicillin-pot clavulanate 875-125 mg tablet 1 tab PO BID 7 Days Qty: 14 0RF acetaminophen [Tylenol] 325 mg tablet 650 mg PO Q6H PRN (Reason: pain) Qty: 30 0RF No Action cetirizine 10 mg tablet 1 tab PO BEDTIME fluoxetine 40 mg capsule 1 cap PO BEDTIME trazodone 50 mg tablet 1 tab PO BEDTIME PRN (Reason: Insomnia) cyanocobalamin (vitamin B-12) 1,000 mcg tablet 1 tab PO DAILY buspirone 7.5 mg tablet 1 tab PO BID hydroxyzine HCl 25 mg tablet 1 tab PO BID PRN (Reason: panic attack) fluticasone propionate [Flovent HFA] 220 mcg/actuation HFA aerosol inhaler 1 puff INHALATION BID divalproex 250 mg tablet extended release 24 hr 1 tab PO BEDTIME metoprolol tartrate 25 mg tablet 1 tab PO BID Rx Instructions: take with food WesTab Plus 27 mg iron- 1 mg tablet 1 tab PO BEDTIME sennosides [senna] 8.6 mg tablet 2 tab PO BEDTIME esomeprazole magnesium [Nexium] 40 mg capsule,delayed release(DR/EC) 40 mg PO DAILY@0630 verapamil 360 mg capsule,ext rel. pellets 24 hr 1 cap PO BEDTIME sumatriptan succinate 50 mg tablet 50 mg PO Q2H PRN (Reason: Migraine Headache) Rx Instructions: MAX DOSE 200MG / 24 HOURS albuterol sulfate [ProAir HFA] 90 mcg/actuation HFA aerosol inhaler 2 puff PO Q6H PRN (Reason: Shortness Of Breath Or Wheezing) acetaminophen 500 mg tablet 500 mg PO Q6H PRN (Reason: pain) Qty: 20 0RF cyclobenzaprine 10 mg tablet 10 mg PO TID PRN (Reason: muscle spasm) Qty: 7 0RF ibuprofen 600 mg tablet 600 mg PO Q6H PRN (Reason: pain) Qty: 30 0RF ondansetron 4 mg tablet,disintegrating 4 mg PO Q6H PRN (Reason: nausea and vomiting) Qty: 10 0RF Interventions: ED Discharge Assessment Last Done: 01/13/23 17:58 Discharge Date/Time: 01/13/23 18:00
[2023-01-13 16:04] LABS: MANUAL DIFF FLAG NO
[2023-01-13 16:05] LABS: Basophils Percent Auto 0.4 % (0-2); Eosinophils Absolute Auto 0.1 X10*3/uL (0.0-0.4); Eosinophils Percent Auto 1.4 % (0-4); Hematocrit 40.1 % (37.0-47.0); Hemoglobin 13.1 g/dl (12.0-16.0); Imm Gran Abs Auto 0.02 X10*3/uL (0.00-0.03); Imm Gran Pct Auto 0.3 % (0.0-0.4); Lymphocytes Absolute Auto 2.2 X10*3/uL (1.2-4.9); Lymphocytes Percent Auto 28.6 % (20-40); Mean Corpuscular HGB Conc 32.7 g/dl (31.0-35.0); Mean Corpuscular Hemoglobin 27.6 pg (27.0-33.0); Mean Corpuscular Volume 84.6 fL (80.0-98.0); Mean Platelet Volume 10.4 fL (9.4-12.3); Monocytes Absolute Auto 0.4 X10*3/uL (0.1-1.2); Monocytes Percent Auto 5.4 % (2-11); Neutrophils Percent Auto 63.9 % (45-73); Platelet Count 324 X10*3/uL (160-400); Red Blood Count 4.74 X10*6/uL (4.20-5.50); White Blood Count 7.8 X10*3/uL (4.8-10.8)
[2023-01-13 16:20] LABS: Anion Gap 15 (12-20); Blood Urea Nitrogen 6 mg/dL (9-16); Calcium 9.5 mg/dL (8.4-10.2); Carbon Dioxide 22 mmol/L (22-29); Chloride 107 mmol/L (96-108); Creatinine Clr Calc Pharmacy 98.6; Estimated Glomerular Filt Rate > 60; Glucose Random 91 mg/dL (60-115); Sodium 140 mmol/L (135-145)
[2023-01-13] MEDS: Ibuprofen 600 MG TABLET PO (17:15)
== END 2023-01-13 18:00 | disposition home or self-care (01) ==
PROVIDERS: Nurse Practitioner Family; Emergency Provider Emergency Medicine
DX: K04.7 Periapical abscess without sinus (principal); K08.89 Other specified disorders of teeth and supporting structures; Z87.891 Personal history of nicotine dependence
CPT/HCPCS: 36415; 80048; 85025; 99283

== ENCOUNTER 2023-04-04 20:23 | Emergency (ER) | payer MEDICAID, SELFPAY ==
--- NOTE | 2023-04-04 20:27 | ECG_ITS ---
Test Reason : CHEST PAIN Blood Pressure : / mmHG Vent. Rate : 069 BPM Atrial Rate : 069 BPM P-R Int : 128 ms QRS Dur : 088 ms QT Int : 396 ms P-R-T Axes : 050 036 052 degrees QTc Int : 424 ms Normal sinus rhythm Normal ECG When compared with ECG of 13-DEC-2022 15:08, Premature ventricular complexes are no longer Present QT has shortened Referred By: Generic ED Physician Electronically Signed By:EDITH QUAN MD
[2023-04-04 20:52] VITALS: BP 137/92; PULSE 72; RESP 20; TEMP 36.3; O2SAT 99; BMI 30.1
[2023-04-04 20:57] LABS: MANUAL DIFF FLAG NO
[2023-04-04 20:59] LABS: Basophils Percent Auto 0.4 % (0-2); Eosinophils Absolute Auto 0.1 X10*3/uL (0.0-0.4); Eosinophils Percent Auto 1.2 % (0-4); Hematocrit 37.1 % (37.0-47.0); Hemoglobin 12.6 g/dl (12.0-16.0); Imm Gran Abs Auto 0.03 X10*3/uL (0.00-0.03); Imm Gran Pct Auto 0.3 % (0.0-0.4); Lymphocytes Absolute Auto 2.5 X10*3/uL (1.2-4.9); Lymphocytes Percent Auto 25.4 % (20-40); Mean Corpuscular Hemoglobin 27.5 pg (27.0-33.0); Mean Corpuscular Volume 80.8 fL (80.0-98.0); Monocytes Absolute Auto 0.6 X10*3/uL (0.1-1.2); Monocytes Percent Auto 5.6 % (2-11); Neutrophils Absolute Auto 6.6 x10*3/uL (2.0-8.3); Neutrophils Percent Auto 67.1 % (45-73); Platelet Count 296 X10*3/uL (160-400); Red Blood Count 4.59 X10*6/uL (4.20-5.50); Red Cell Distribution Width 13.7 % (11.0-16.0); White Blood Count 9.8 X10*3/uL (4.8-10.8)
[2023-04-04] MEDS: Ibuprofen 400 MG TABLET PO (21:04)
[2023-04-04 21:19] LABS: Alanine Aminotransferase 12 U/L (0-31); Albumin Level 4.1 g/dL (3.5-5.0); Alkaline Phosphatase 65 U/L (39-117); Anion Gap 13 (12-20); Aspartate Amino Transferase 13 U/L (5-31); Bilirubin Total 0.2 mg/dL (0.0-1.0); Blood Urea Nitrogen 10 mg/dL (9-16); Calcium 9.5 mg/dL (8.4-10.2); Carbon Dioxide 20 mmol/L (22-29); Chloride 109 mmol/L (96-108); Estimated Glomerular Filt Rate > 60; Glucose Random 103 mg/dL (60-115); Potassium 3.4 mmol/L (3.3-5.1); Sodium 139 mmol/L (135-145)
[2023-04-04 21:31] LABS: Troponin-I High Sensitivity < 2.7 ng/L (<3.5-17.0)
[2023-04-04 21:40] LABS: Influenza A PCR NEGATIVE (Negative); Influenza B PCR NEGATIVE (Negative); Resp Syncy Virus RNA Qual PCR NEGATIVE (Negative); SARS COV2 PCR INHOUSE NEGATIVE (Negative)
== END 2023-04-04 23:49 | disposition left against medical advice (07) ==
PROVIDERS: Emergency Provider Emergency Medicine
DX: R07.9 Chest pain, unspecified (principal); R51.9 Headache, unspecified; Z20.822 Contact with and (suspected) exposure to COVID-19; Z20.828 Contact with and (suspected) exposure to other viral communicable diseases
CPT/HCPCS: 0241U; 36415; 80053; 84484; 85025; 93005; 99283

== ENCOUNTER 2023-04-24 18:59 | Outpatient (REF) | payer MEDICAID, SELFPAY ==
[2023-04-25 12:03] LABS: BV Int Neg Control Negative (Negative); BV Int Pos Control Positive (Positive)
[2023-04-25 12:07] LABS: CT PCR NOT DETECTED (Not Detect.); NG PCR NOT DETECTED (Not Detect.)
== END 2023-04-24 19:00 | disposition home or self-care (01) ==
LOC: HO.CHCLNP 18:59
PROVIDERS: Visit Provider Advanced Practice Midwife
DX: N89.8 Other specified noninflammatory disorders of vagina (principal); N93.0 Postcoital and contact bleeding
CPT/HCPCS: 0353U; 87480; 87510; 87660

== ENCOUNTER 2023-05-01 13:04 | Outpatient (REF) | payer MEDICAID, SELFPAY ==
[2023-05-03 22:59] LABS: TS Negative Control Passed; TS Panel A 1; TS Panel B 1; TS Positive Control Passed; TSpotTB Negative (Negative)
== END 2023-05-01 13:05 | disposition home or self-care (01) ==
LOC: HO.CHCLDS 13:04
PROVIDERS: Visit Provider Registered Nurse
DX: Z00.00 Encounter for general adult medical examination without abnormal findings (principal); Z11.1 Encounter for screening for respiratory tuberculosis
CPT/HCPCS: 36415; 86481

== ENCOUNTER 2023-05-29 11:53 | Outpatient (REF) | payer MEDICAID, SELFPAY ==
[2023-05-29 14:43] LABS: INTERNATIONAL NORM RATIO 0.9 (0.9-1.1); Prothrombin Time 11.5 SEC (11.1-13.3)
[2023-05-29 15:05] LABS: Alanine Aminotransferase 15 U/L (0-31); Alkaline Phosphatase 59 U/L (39-117); Aspartate Amino Transferase 16 U/L (5-31); Bilirubin Direct 0.2 mg/dL (0.0-0.5); Bilirubin Total 0.4 mg/dL (0.0-1.0); Total Protein 6.9 g/dL (6.5-8.0)
== END 2023-05-29 11:54 | disposition home or self-care (01) ==
LOC: HO.CHCLDS 11:53
PROVIDERS: Visit Provider Registered Nurse
DX: R74.8 Abnormal levels of other serum enzymes (principal)
CPT/HCPCS: 36415; 80076; 85610; 85730

== ENCOUNTER 2023-06-15 09:12 | Outpatient (REF) | payer MEDICAID, SELFPAY ==
--- NOTE | ~2023-06-15 | XR_ITS ---
EXAMINATION: XR HAND, RIGHT CLINICAL INFORMATION: Pain. COMPARISON: None available. TECHNIQUE: PA, lateral, and oblique views of the right hand. FINDINGS: The bones and soft tissues are normal. No fracture. Alignment is anatomic. Joint spaces are maintained. No erosions or soft tissue calcifications. XR/XR hand RT min 3V IMPRESSION: Normal right hand.
--- NOTE | ~2023-06-15 | XR_ITS ---
EXAMINATION: XR KNEE, LEFT CLINICAL INFORMATION: Chronic pain. COMPARISON: None available. TECHNIQUE: AP, lateral, and both oblique views of the left knee. FINDINGS: No fracture or joint effusion. Alignment is anatomic. Joint spaces are maintained. No abnormal soft tissue calcification. XR/XR knee LT 4V IMPRESSION: Normal left knee.
== END 2023-06-15 09:13 | disposition home or self-care (01) ==
LOC: HO.XRAY 09:12
PROVIDERS: PCP Registered Nurse; Visit Provider Registered Nurse
DX: M79.641 Pain in right hand (principal); M25.562 Pain in left knee; G89.29 Other chronic pain
CPT/HCPCS: 73130; 73564

== ENCOUNTER 2023-07-11 10:02 | Outpatient (AMB) | payer MEDICAID, SELFPAY ==
--- NOTE | 2023-07-11 10:41 | MHC.OFFVIS ---
Intake Vital Signs 07/11/23 10:42 Height 5 ft 3 in Weight 170 lb BMI 30.1 BP 124/73 Blood Pressure Location Lt brachial Position Sitting Pulse 78 Intake Visit Reasons: Gastroesophageal reflux disease (GERD) Intake Note: Patient follow up for GERD. Patient cc: Vomiting on and off, GERD with burning sensation, abdominal pain with bloating. Denies any other GI issues. 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 Unable to take cardiac will therapy medications. Will start her on Levaquin and amoxicillin. Patient will be given script for nausea. The port itself finishing all of her medication discussed with patient. Discussed with patient also avoiding dietary triggers and late night snacking. Staying upright for minimal 3 hours after meals discussed with patient. Patient can continue Nexium. She will be sent for upper endoscopy after treatment Abdominal pain Epigastric discomfort no matter what patient eats. Patient was diagnosed with H pylori as mentioned above IBS (irritable bowel syndrome) Patient reports that she is moving her bowels better now that she is taking Senokot. Continue diet elimination. Low FODMAP diet discussed with patient. Constipation Continue Senokot. Patient was instructed to increase fluid intake and mobility to increase better bowel motility Helicobacter pylori (H. pylori) Unable to tolerate quadruple therapy. Epigastric discomfort, nausea. Patient will be switched to Levaquin and amoxicillin. Discussed with patient the importance of completing her treatment in order to eradicate the bacteria. Patient will go for upper endoscopy after the treatment. I will see her in 1 month, sooner on as needed basis. Patient is agreeable to this plan and verbalizes understanding of instructions. She was given the opportunity to ask questions and all questions answered. ? Thank you for allowing me to participate in her care Plan Medications New levofloxacin 500 mg PO DAILY 14 days 14 tabs 0RF amoxicillin 1,000 mg (2 x 500 mg) PO Q12H 14 days 56 tabs 0RF Refilled ondansetron 4 mg PO Q6H PRN 10 tabs 0RF nausea and vomiting Discontinued metronidazole Discontinued Reason: Patient no longer taking 1,000 mg (2 x 500 mg) PO BID 56 tabs 0RF A04.8 tetracycline Discontinued Reason: Patient no longer taking 1,000 mg (2 x 500 mg) PO Q12H 56 caps 0RF A04.8 methylcellulose (laxative) (Citrucel) take it with full glass of water Discontinued Reason: Patient no longer taking 500 mg PO DAILY 90 tabs 2RF K59.00 bismuth subsalicylate Discontinued Reason: Patient no longer taking 2 tabs PO QID 14 days 112 tabs 0RF A04.8 TODAY'S VISIT Patient is here today for requested visit. Patient was last seen in the office in May of 2022, treated with antibiotics for H pylori, patient never came back was supposed to return in 1 month for re-evaluation and retesting. Patient reports that she was very busy, moving, finding new job going to school and getting her [employer] license. Patient reports that she has 6 children that she cares for. Patient continues to have same symptoms with epigastric discomfort, dyspepsia without dysphagia or odynophagia. Patient reports occasional nausea and vomiting. States that she is taking Nexium, however she feels like it has not helping. Occasional nausea and vomiting after meals. Patient reports abdominal bloating postprandially. Reports that she is moving her bowels without any issues. Patient denies any family history of gastric or colon cancer. Patient denies melena, hematochezia, unintentional weight loss or ribbon like stools. Patient reports that she has not changed her diet. Patient denies having any particular dietary triggers. Her symptoms are happening with any food that she eats. Patient denies any fever or chills. Denies any chest pain or shortness of breath. [facility] Medical History Anxiety Asthma COVID Migraine Palpitations Panic attack Surgical History H/O dilation and curettage Family History Maternal Grandfather Skin cancer Paternal Grandmother Colon cancer Social History Household Members: Children Housing: Apartment Do you presently have visiting nurse or other home services: No Alcohol intake: never Patient Tobacco Use Status: Former Tobacco user Tobacco use type: Cigarette Review of Systems Const Denies weight gain and Denies weight loss ENT Reports no additional complaints, Denies dysphagia and Denies odynophagia Card Reports no additional complaints Resp Reports no additional complaints GI Reports abdominal pain (Epigastric), Denies belching, Denies melena, Reports bloating, Denies change in bowel habits, Denies dysphagia, Denies excessive flatus, Reports dyspepsia, Reports heartburn, Denies diarrhea, Denies loose stools, Reports nausea, Denies odynophagia and Reports vomiting Reports no additional complaints Musc Reports no additional complaints Neuro Reports no additional complaints Psych Reports no additional complaints Endo Reports no additional complaints Physical Exam Vital Signs: Last Vital Signs Pulse 78 07/11/23 10:42 BP 124/73 07/11/23 10:42 BMI result Body Mass Index 30.1 Const General: healthy appearing, no acute distress and well developed Nutritional Appearance: obese Orientation/consciousness: patient oriented x3 Resp Effort & Inspection: normal respiratory effort, able to speak in complete sentences, no tracheal deviation and symmetric chest movement Auscultation: clear to auscultation bilaterally Cardio Rate: regular rate GI Inspection: Yes normal to inspection, No distended and Yes obesity Palpation (GI): Soft to palpation, not firm, nontender and No hepatosplenomegaly present Auscultation: normal bowel sounds General: Yes no CVA tenderness Back/Spine/Pelvis Back: no CVA tenderness Skin General skin exam: elasticity normal, turgor normal and dry skin Neuro General: patient oriented x3 Psych Appearance: grossly normal Mental Status: mental status grossly normal Assessment & Plan Assessment & Plan (1) GERD (gastroesophageal reflux disease): Code(s): K21.9 - Gastro-esophageal reflux disease without esophagitis Qualifiers: Esophagitis presence: esophagitis presence not specified Qualified Code(s): K21.9 - Gastro-esophageal reflux disease without esophagitis (2) Abdominal pain: Code(s): R10.9 - Unspecified abdominal pain Qualifiers: Abdominal location: epigastric Qualified Code(s): R10.13 - Epigastric pain (3) IBS (irritable bowel syndrome): Code(s): K58.9 - Irritable bowel syndrome without diarrhea Qualifiers: Irritable bowel syndrome type: without diarrhea Qualified Code(s): K58.9 - Irritable bowel syndrome without diarrhea (4) Constipation: Code(s): K59.00 - Constipation, unspecified Qualifiers: Constipation type: slow transit constipation Qualified Code(s): K59.01 - Slow transit constipation (5) Helicobacter pylori (H. pylori): Code(s): A04.8 - Other specified bacterial intestinal infections Plan History of H pylori unable to tolerate quadruple therapy, was given levofloxacin and amoxicillin and able to tolerate that. Patient states that she completed the treatment. However that was over a year ago and patient never came back for retesting. We will send patient for H pylori testing again. Patient will start taking lansoprazole instead of as omeprazole in the morning. Patient was encouraged to avoid dietary triggers and late night snacking. Staying upright for minimum 3 hours after meals discussed with patient. Patient reports occasional epigastric discomfort, will check lipase. Patient reports that she is moving her bowels well, however occasionally postprandial loose stools depending on what she eats. Will check vitamin-D, B12, folate. I will see patient in 5 weeks, we will discuss going for upper endoscopy. Patient reports that she is going to have umbilical hernia repair soon awaiting re-evaluation appointment with her surgeon. Patient was seen for this in 2020, however due to hectic schedule she was unable to make the decision about going for the procedure. Her appointment is in July. Patient is agreeable to current plan of care and verbalizes understanding of instructions. She was given the opportunity to ask questions and all questions answered. Thank you for allowing me to participate in her care. Orders: Orders Vitamin D 25-OH (D2 and D3) Today E55.9 - Vitamin D deficiency, unspecified Vitamin B12 and Folate Today R19.7 - Diarrhea, unspecified H pylori Ag Stool Today K21.9 - Gastro-esophageal reflux disease without esophagitis Lipase Today R10.9 - Unspecified abdominal pain Medications: New lansoprazole 30 mg PO DAILY 30 caps 3RF K21.9 - Gastro-esophageal reflux disease without esophagitis Coding Level of Care Code Est Pt Level 4 (67752) Diagnoses Gastroesophageal reflux disease, unspecified whether esophagitis present K21.9 Esophagitis presence: esophagitis presence not specified Epigastric pain R10.13 Abdominal location: epigastric Irritable bowel syndrome without diarrhea K58.9 Irritable bowel syndrome type: without diarrhea Slow transit constipation K59.01 Constipation type: slow transit constipation Helicobacter pylori (H. pylori) A04.8 Time Spent (min) 35 Comment 25 minutes spent with patient and additional 10 minutes spent reviewing her records
[2023-07-11 10:42] VITALS: BP 124/73; PULSE 78; BMI 30.1
== END 2023-07-11 11:11 | disposition home or self-care (01) ==
PROVIDERS: PCP Registered Nurse; Visit Provider Nurse Practitioner Family
DX: K21.9 Gastro-esophageal reflux disease without esophagitis (principal); R10.13 Epigastric pain; K58.9 Irritable bowel syndrome, unspecified; K59.01 Slow transit constipation; A04.8 Other specified bacterial intestinal infections
CPT/HCPCS: 99214

== ENCOUNTER → 2023-07-11 10:02 | Outpatient (BNVA) | payer MEDICAID, SELFPAY | PROVIDERS: PCP Registered Nurse; Visit Provider Nurse Practitioner Family | DX: K21.9 Gastro-esophageal reflux disease without esophagitis (principal); R10.13 Epigastric pain; K58.9 Irritable bowel syndrome, unspecified; K59.01 Slow transit constipation; A04.8 Other specified bacterial intestinal infections | CPT/HCPCS: 99212 ==

== ENCOUNTER 2023-07-12 14:53 | Outpatient (AMB) | payer MEDICAID, SELFPAY ==
--- NOTE | 2023-07-12 15:04 | A.OFFVIS_ITS ---
Intake Vital Signs 3 07/12/23 15:14 Height 5 ft 3 in Weight 169 lb BMI 29.9 BP 139/81 Blood Pressure Location Lt brachial Position Sitting Pulse 94 Intake Visit Reasons: re-discuss umbilical hernia surgery Intake Note: Patient is seen in office to re-discuss umbilical hernia surgery. Pt c/o: was waiting for her liver enzymes and arrhythmia to go down, sees a Tip Stitcher @ [facility] the hernia is very painful radiates up the abdomen, has increase in size, has nauseas unsure if related to hernia, requesting new imaging L.OV:05/17/21 Abstract Clerk Required: No Accompanied by: Self / Same As Patient Allergies ibuprofen Allergy (Mild, Verified 07/12/23 15:15) Gastrointestinal Upset Iodinated Contrast Media Allergy (Verified 07/12/23 15:11) Swelling HPI HPI Comments 2 History of Present Illness0 Details 33-year-old female patient presenting wi th a lump at the umbilicus noted during her approximately 5 years ago. The lump has persisted and has gradually increased in size. She also reports increased discomfort especially after eating. She reports some nausea and difficulty moving her bowels because of the. The lump is always present and does not decrease in size. It does occasionally increase in size with lifting. She denies any bleeding or discharge from the site. She is requesting repair of this umbilical hernia. She denies a previous history of surgery in this location. [facility] Medical History Anxiety Asthma COVID Migraine Palpitations Panic attack Surgical History H/O dilation and curettage Family History Maternal Grandfather Skin cancer Paternal Grandmother Colon cancer Social History Household Members: Children Housing: Apartment Do you presently have visiting nurse or other home services: No Alcohol intake: never Patient Tobacco Use Status: Former Tobacco user Tobacco use type: Cigarette Review of Systems Const Denies chills, Denies fever(s), Denies headache(s) and Denies poor appetite ENT Denies dizziness and Denies headache(s) Card Denies chest pain, Denies rapid heart rate, Denies palpitations and Denies slow heart rate Resp Denies chest congestion, Denies cough, Denies pain on inspiration and Denies wheezing GI Denies abdominal pain, Denies bloating, Denies change in stool character, Denies constipation, Denies diarrhea, Denies nausea, Denies vomiting and Denies hematemesis Musc Denies back pain, Denies arthralgias, Denies joint swelling and Denies numbness Skin/Breast Denies change in pigmentation, Denies erythema and Denies rash Neuro Denies dizziness, Denies headache(s) and Denies numbness Psych Denies anxiety and Denies depression Endo Denies palpitations Que/Lymph Denies easy bleeding, Denies easy bruising and Denies lymphadenopathy Aller/Immun Denies wheezing Physical Exam Vital Signs: Last Vital Signs Pulse 94 07/12/23 15:14 BP 139/81 07/12/23 15:14 BMI result Body Mass Index 29.9 Const General: no acute distress Nutritional Appearance: well nourished Orientation/consciousness: patient oriented x3 Limitations: no limitations HEENT Head: Yes normocephalic and Yes atraumatic Ears: hearing grossly normal bilaterally Resp Effort & Inspection: normal respiratory effort, no audible wheezes, no cough and no respiratory distress GI Inspection: Yes normal to inspection Palpation (GI): Soft to palpation, nontender, no guarding, not rigid and Hernia present (Reducible umbilical hernia proximally 3 cm in diameter) umbilical (Non reducible umbilical hernia which increases in size with Valsalva maneuvers.) Percussion: Yes normal to percussion Auscultation: normal bowel sounds Abdomen image: 2 1. Hernia umbilicus Skin General skin exam: no rashes or lesions noted Neuro General: patient oriented x3 Extrem General: Yes no clubbing, cyanosis or edema Assessment & Plan Assessment & Plan (1) Umbilical hernia: Code(s): K42.9 - Umbilical hernia without obstruction or gangrene Qualifiers: Obstruction and gangrene presence: without obstruction or gangrene Qualified Code(s): K42.9 - Umbilical hernia without obstruction or gangrene Plan: 33-year-old female patient presenting with enlarging umbilical hernia which developed during that her last 2 years ago. She is reporting increased discomfort and is requested repair of the umbilical hernia. I reviewed the procedure, risks, and alternatives and she consents to repair of the umbilical hernia with mesh. This will be scheduled as a short-stay surgery. Coding Level of Care Code New Pt Level 4 (57754) Diagnoses Umbilical hernia without obstruction and without gangrene K42.9 Obstruction and gangrene presence: without obstruction or gangrene
[2023-07-12 15:14] VITALS: BP 139/81; PULSE 94; BMI 29.9
== END 2023-07-12 15:37 | disposition home or self-care (01) ==
PROVIDERS: PCP Registered Nurse; Visit Provider Surgery
DX: K42.9 Umbilical hernia without obstruction or gangrene (principal)
CPT/HCPCS: 99214

== ENCOUNTER 2023-07-12 14:53 | Outpatient (REF) | payer MEDICAID, SELFPAY ==
[2023-07-12 17:01] LABS: Lipase 29 U/L (8-78)
[2023-07-12 17:34] LABS: Folate 14.4 ng/mL (> or = 4.0); Vitamin B12 270 pg/mL (200-900)
[2023-07-16 17:23] LABS: Vitamin D 25-OH, D2 <4 ng/mL; Vitamin D 25-OH, D3 19 ng/mL; Vitamin D 25-OH, Total 19 ng/mL (30-100)
== END 2023-07-12 14:54 | disposition home or self-care (01) ==
LOC: HO.LAB 14:53
PROVIDERS: Absent Provider Nurse Practitioner Family; PCP Registered Nurse; Visit Provider Surgery
DX: K42.9 Umbilical hernia without obstruction or gangrene (principal); R10.9 Unspecified abdominal pain; R19.7 Diarrhea, unspecified; E55.9 Vitamin D deficiency, unspecified
CPT/HCPCS: 36415; 82306; 82607; 82746; 83690; 99212

== ENCOUNTER 2023-07-23 07:29 | Day surgery (SDC) | payer MEDICAID, SELFPAY ==
[2023-07-18 17:39] VITALS: BMI 30.1
--- NOTE | 2023-07-20 10:01 | HO.ANESPROP2 ---
Documented by User: Kylah Pink NP 07/20/23 10:02 [facility] Active Problems Active Problems: All Active Problems (Updated 07/12/23 @ 15:10 by Bandar Woo MD) Umbilical hernia (Acute) Past Medical History Medical History Anxiety Asthma COVID Migraine Palpitations Panic attack Family History Family History Maternal Grandfather Skin cancer Paternal Grandmother Colon cancer Surgical History Surgical History H/O dilation and curettage Social History Social History Household Members: Children Housing: Apartment Do you presently have visiting nurse or other home services: No Alcohol intake: never Patient Tobacco Use Status: Former Tobacco user Quit Date: 2019 Tobacco use type: Cigarette Years Smoked: 15 Smoked in Last 30 Days: No Use of substances other than those prescribed or required for medical reasons: No Are you DNR?: No Advance Directives: No Advance Directives Information Provided: Yes Advance Directives on File: No Recently lost weight without trying: No Eating poorly because of decreased appetite: No Nutrition Risks: No Nutritional Risk Patient : No Poor oral hygiene: No Meds Allergies Allergy/AdvReac Type Severity Reaction Status Date / Time ibuprofen Allergy Mild Gastrointestinal Verified 07/12/23 15:15 Upset Iodinated Contrast Media Allergy Swelling Verified 07/12/23 15:11 Home Medications Medication Instructions Recorded Confirmed Last Taken Type cetirizine 10 mg tablet 1 tab PO BEDTIME 10/29/20 07/23/23 2 Days Ago History ~06/22/22 albuterol sulfate 90 mcg/actuation 2 puff PO Q6H PRN Shortness Of 07/20/21 07/23/23 Unknown History aerosol inhaler (ProAir HFA) Breath Or Wheezing sumatriptan succinate 50 mg tablet 50 mg PO Q2H PRN Migraine Headache 07/20/21 07/23/23 Unknown History verapamil 360 mg 24 hr 1 cap PO BEDTIME 07/20/21 07/23/23 2 Days Ago History capsule,extended release ~06/22/22 buspirone 7.5 mg tablet 1 tab PO BID 06/24/22 07/23/23 2 Days Ago History ~06/22/22 cyanocobalamin (vitamin B-12) 1 tab PO DAILY 06/24/22 07/23/23 2 Days Ago History 1,000 mcg tablet ~06/22/22 divalproex 250 mg tablet,extended 1 tab PO BEDTIME 06/24/22 07/23/23 2 Days Ago History release 24 hr ~06/22/22 fluoxetine 40 mg capsule 1 cap PO BEDTIME 06/24/22 07/23/23 2 Days Ago History ~06/22/22 fluticasone propionate 220 1 puff inhalation BID 06/24/22 07/23/23 2 Days Ago History mcg/actuation HFA aerosol inhaler ~06/22/22 (Flovent HFA) hydroxyzine HCl 25 mg tablet 1 tab PO BID PRN panic attack 06/24/22 07/23/23 Unknown History metoprolol tartrate 25 mg tablet 1 tab PO BID 06/24/22 07/23/23 2 Days Ago History ~06/22/22 vitamin with calcium 1 tab PO BEDTIME 06/24/22 07/23/23 2 Days Ago History no.72-iron 27 mg-folic acid 1 mg ~06/22/22 tablet (WesTab Plus) sennosides 8.6 mg tablet (senna) 2 tab PO BEDTIME 06/24/22 07/23/23 2 Days Ago History ~06/22/22 risperidone 0.5 mg tablet 0.5 mg PO BEDTIME 07/12/23 07/23/23 Unknown History Exam Height,Weight and Vital Signs: Height 5 ft 3 in Weight 77.111 kg Pertinent Lab Results Pertinent Lab Results: Laboratory Tests 04/04/23 20:55 WBC 9.8 Hgb 12.6 Hct 37.1 Plt Count 296 Sodium 139 Potassium 3.4 Chloride 109 H Carbon Dioxide 20 L BUN 10 Creatinine 0.66 Narrative Narrative: EKG 03/2023 Vent. Rate : 069 BPM Atrial Rate : 069 BPM P-R Int : 128 ms QRS Dur : 088 ms QT Int : 396 ms P-R-T Axes : 050 036 052 degrees QTc Int : 424 ms Normal sinus rhythm Normal ECG When compared with ECG of 13-DEC-2022 15:08, Premature ventricular complexes are no longer Present QT has shortened Assessment and Plan Assessment Anesthesia Assessment: Chart Reviewed Documented by User: Aric Ashley MD 07/23/23 08:15 [facility] Past Medical History Medical History Anxiety Asthma COVID Migraine Palpitations Panic attack Family History Family History Maternal Grandfather Skin cancer Paternal Grandmother Colon cancer Family history of problems with anesthesia: No Surgical History Surgical History H/O dilation and curettage History of Problems with Anesthesia: No Social History Social History Household Members: Children Housing: Apartment Do you presently have visiting nurse or other home services: No Alcohol intake: never Patient Tobacco Use Status: Former Tobacco user Quit Date: 2019 Tobacco use type: Cigarette Years Smoked: 15 Smoked in Last 30 Days: No Use of substances other than those prescribed or required for medical reasons: No Are you DNR?: No Advance Directives: No Advance Directives Information Provided: Yes Advance Directives on File: No Recently lost weight without trying: No Eating poorly because of decreased appetite: No Nutrition Risks: No Nutritional Risk Patient : No Poor oral hygiene: No Meds Allergies Allergy/AdvReac Type Severity Reaction Status Date / Time ibuprofen Allergy Mild Gastrointestinal Verified 07/12/23 15:15 Upset Iodinated Contrast Media Allergy Swelling Verified 07/12/23 15:11 Home Medications Medication Instructions Recorded Confirmed Last Taken Type cetirizine 10 mg tablet 1 tab PO BEDTIME 10/29/20 07/23/23 2 Days Ago History ~06/22/22 albuterol sulfate 90 mcg/actuation 2 puff PO Q6H PRN Shortness Of 07/20/21 07/23/23 Unknown History aerosol inhaler (ProAir HFA) Breath Or Wheezing sumatriptan succinate 50 mg tablet 50 mg PO Q2H PRN Migraine Headache 07/20/21 07/23/23 Unknown History verapamil 360 mg 24 hr 1 cap PO BEDTIME 07/20/21 07/23/23 2 Days Ago History capsule,extended release ~06/22/22 buspirone 7.5 mg tablet 1 tab PO BID 06/24/22 07/23/23 2 Days Ago History ~06/22/22 cyanocobalamin (vitamin B-12) 1 tab PO DAILY 06/24/22 07/23/23 2 Days Ago History 1,000 mcg tablet ~06/22/22 divalproex 250 mg tablet,extended 1 tab PO BEDTIME 06/24/22 07/23/23 2 Days Ago History release 24 hr ~06/22/22 fluoxetine 40 mg capsule 1 cap PO BEDTIME 06/24/22 07/23/23 2 Days Ago History ~06/22/22 fluticasone propionate 220 1 puff inhalation BID 06/24/22 07/23/23 2 Days Ago History mcg/actuation HFA aerosol inhaler ~06/22/22 (Flovent HFA) hydroxyzine HCl 25 mg tablet 1 tab PO BID PRN panic attack 06/24/22 07/23/23 Unknown History metoprolol tartrate 25 mg tablet 1 tab PO BID 06/24/22 07/23/23 2 Days Ago History ~06/22/22 vitamin with calcium 1 tab PO BEDTIME 06/24/22 07/23/23 2 Days Ago History no.72-iron 27 mg-folic acid 1 mg ~06/22/22 tablet (WesTab Plus) sennosides 8.6 mg tablet (senna) 2 tab PO BEDTIME 06/24/22 07/23/23 2 Days Ago History ~06/22/22 risperidone 0.5 mg tablet 0.5 mg PO BEDTIME 07/12/23 07/23/23 Unknown History Exam Airway Mallampati Class: II TM Dist: >3cm Neck ROM: Full Heart: rrr Lungs: cta b/l Assessment and Plan Final Anesthetic Review Family History of Problems with Anesthesia: No History of Problems with Anesthesia: No NPO: Yes ASA Class: II Final Preanesthetic Review: No Changes in Pt Med Stat and Consent Obtained/Reviewed Patient Risk: Low Procedure Risk: Low Anesthetic Plan Anesthetic Plan: GA Disposition: Standard PACU
[2023-07-23] VITALS (8 sets, daily range): BP systolic 108–140; BP diastolic 79–95; PULSE 79–103; RESP 16–20; TEMP 36.2–36.5; O2SAT 99–100; BMI 30.3
[2023-07-23] MEDS: Lactated Ringers 1,000 ML 100 ML IVCONT (08:03)
[2023-07-23 08:17] LABS: UPreg QC Valid YES; Urine Pregnancy NEGATIVE (NEGATIVE)
--- NOTE | 2023-07-23 08:22 | MHC.SHP ---
Pre-Procedural Eval Section A - 24 Hr Update-Section A only Date of Service: 07/23/23 The patient is an INPATIENT: No Changes since office visit: Yes Patient answered all questions; No Cold of Flu in the past 2 weeks, No New Medical Problems and No Changes in Medication The patient has been examined within 24 hours of the surgical procedure. The History & Physical has been completed within 30 days and I have reviewed it.: Yes Section B - Complete if H&P > 30 days Chief Complaint: Umbilical hernia without obstruction or gangrene Allergies: Allergies Allergy/AdvReac Type Severity Reaction Status Date / Time ibuprofen Allergy Mild Gastrointestinal Verified 07/12/23 15:15 Upset Iodinated Contrast Media Allergy Swelling Verified 07/12/23 15:11 Plan Diagnosis/Plan: Unchanged I have reviewed the history and physical and performed a pertinent physical examination on my patient. No changes have occurred unless specified. Time Spent With Patient Time: Total time managing care of this patient today ____ minutes.
--- NOTE | 2023-07-23 09:07 | W.PM.OPN ---
Operative Note Operative Note Date of Service: 07/23/23 Narrative: Preoperative diagnosis: Umbilical hernia, reducible Postoperative diagnosis: Same Procedure: Repair of umbilical hernia with mesh Surgeon: Bandar Woo MD Matcher Leather Parts: No Julien PA-C Anesthesia: General LMA Indications for procedure: 33-year-old female patient presenting with a reducible umbilical hernia causing discomfort. On examination patient was found to have a reducible umbilical hernia with some discomfort with palpation. Operative findings: 3 cm defect without incarceration or strangulation. Specimen: None Estimated blood loss: Less than 2 mL Complications: None Procedure details: Patient was brought to the OR placed in a supine position. After administering general anesthesia the patient's abdomen was prepped with ChloraPrep and draped in a sterile fashion. A surgical time-out was called the consent confirmed. Patient received preoperative antibiotics and Venodyne boots were in place. Local anesthesia consisting of 0.5% Sensorcaine was then infiltrated in a curvilinear fashion across the umbilicus. An incision was then made in transverse fashion over the umbilicus. This carried out through subcu tissue up to the hernia sac. The hernia sac was then dissected down to the fascial defect. The hernia sac was then reduced into the abdominal cavity. Preperitoneal space was then further dissected combination of blunt and sharp dissection. Hemostasis was assured using electrocautery. The defect was measured at 3 cm in diameter. A 6.4 cm round Ventralex mesh was then obtained. This was deployed within the preperitoneal space and secured in 4 quadrants using the 0 Tycron suture. Fascia was then closed over the mesh incorporating the mesh in the closure using [id number] 0 Tycron sutures. Wounds were then irrigated with saline solution. Umbilical skin was then reattached to the fascia using a 3-0 Polysorb suture. Dermis was reapproximated using interrupted 3-0 Polysorb sutures. Skin was closed using a running subcuticular 4-0 Polysorb suture. Steri-Strips, 2 x 2 gauze and Tegaderm were then applied. The patient tolerated the procedure well. Sponge, instrument, needle counts reported as correct. The patient was transferred to PACU in stable condition.
[2023-07-23] MEDS: HYDROmorphone HCl 0.5 MG/0.5 ML SYRINGE IVPUSH (09:45)
[2023-07-23] MEDS: ondansetron HCL 4 MG/2 ML VIAL IVPUSH (09:58)
== END 2023-07-23 10:25 | disposition home or self-care (01) ==
PROVIDERS: Nurse Practitioner; PCP Registered Nurse; Visit Provider Surgery
PROC: (CPT 49593; principal; 2023-07-23 08:30)
DX: K42.9 Umbilical hernia without obstruction or gangrene (principal); J45.909 Unspecified asthma, uncomplicated; R00.2 Palpitations; Z79.51 Long term (current) use of inhaled steroids; Z79.899 Other long term (current) drug therapy; Z88.8 Allergy status to other drugs, medicaments and biological substances; Z91.041 Radiographic dye allergy status; Z86.16 Personal history of COVID-19
CPT/HCPCS: 49593; 81025; C1781; J0690; J1170; J2250; J2405; J3010

== ENCOUNTER → 2023-07-23 07:29 | Outpatient (BNV) | payer MEDICAID, SELFPAY | PROVIDERS: PCP Registered Nurse; Visit Provider Surgery | DX: K42.9 Umbilical hernia without obstruction or gangrene (principal) | CPT/HCPCS: 49593 ==

== ENCOUNTER 2023-07-31 10:14 | Outpatient (AMB) | payer MEDICAID, SELFPAY ==
--- NOTE | 2023-07-31 10:17 | MHC.OFFVIS ---
Intake Vital Signs 07/31/23 10:23 Weight 164 lb BP 121/61 Blood Pressure Location Rt brachial Position Sitting Pulse 94 Intake Visit Reasons: S/p repair umbilical hernia w/ mesh Intake Note: This patient presents for a post-op assessment status post reapair of umbilical hernia with mesh. Patient c/o; reports discomfort surgical site. Emergency Physician Required: No Accompanied by: Children Allergies ibuprofen Allergy (Mild, Verified 07/31/23 10:25) Gastrointestinal Upset Iodinated Contrast Media Allergy (Verified 07/31/23 10:25) Swelling HPI HPI Comments History of Present Illness Details 33-year-old female patient returning status post repair of an umbilical hernia with mesh on 07/23/2023. She tolerated the procedure well returns today for postop wound check. She denies any fever, chills, nausea or vomiting. [facility] Medical History (Updated 07/12/23 @ 15:10 by Bandar Woo MD) Palpitations COVID Migraine Panic attack Anxiety Asthma Surgical History H/O umbilical hernia repair (07/23/23) H/O dilation and curettage Family History Maternal Grandfather Skin cancer Paternal Grandmother Colon cancer Social History Household Members: Children Housing: Apartment Do you presently have visiting nurse or other home services: No Alcohol intake: never Comment: counts correct Patient Tobacco Use Status: Former Tobacco user Quit Date: 2019 Tobacco use type: Cigarette Years Smoked: 15 Physical Exam Vital Signs: Last Vital Signs Pulse 94 07/31/23 10:23 BP 121/61 07/31/23 10:23 Const General: no acute distress Nutritional Appearance: well nourished Orientation/consciousness: patient oriented x3 Limitations: no limitations HEENT Head: Yes normocephalic and Yes atraumatic Ears: hearing grossly normal bilaterally Resp Effort & Inspection: normal respiratory effort, no audible wheezes, no cough and no respiratory distress GI Other: Incision above the umbilicus is clean, dry, and intact without redness or discharge. No evidence of hernia recurrence or infection. Inspection: Yes normal to inspection Palpation (GI): Soft to palpation, nontender, no guarding, not rigid and no hernias Percussion: Yes normal to percussion Abdomen image: 1. Incision above umbilicus. Skin General skin exam: no rashes or lesions noted Neuro General: patient oriented x3 Extrem General: Yes no clubbing, cyanosis or edema Assessment & Plan Assessment & Plan (1) Umbilical hernia: Code(s): K42.9 - Umbilical hernia without obstruction or gangrene Qualifiers: Obstruction and gangrene presence: without obstruction or gangrene Qualified Code(s): K42.9 - Umbilical hernia without obstruction or gangrene Plan 43-year-old female patient returning 1 week following repair of an umbilical hernia with mesh. She tolerated the procedure well and her wounds are healing nicely. She should avoid lifting greater than 10 lb for the next 4 weeks and return at that time for wound check. Coding Level of Care Code Global (33571) Diagnoses Umbilical hernia without obstruction and without gangrene K42.9 Obstruction and gangrene presence: without obstruction or gangrene
[2023-07-31 10:23] VITALS: BP 121/61; PULSE 94
== END 2023-07-31 10:38 | disposition home or self-care (01) ==
PROVIDERS: PCP Registered Nurse; Visit Provider Surgery
DX: K42.9 Umbilical hernia without obstruction or gangrene (principal)
CPT/HCPCS: 99212

== ENCOUNTER → 2023-07-31 10:14 | Outpatient (BNVA) | payer MEDICAID, SELFPAY | PROVIDERS: PCP Registered Nurse; Visit Provider Surgery | DX: Z48.815 Encounter for surgical aftercare following surgery on the digestive system (principal); Z87.19 Personal history of other diseases of the digestive system | CPT/HCPCS: 99212 ==

== ENCOUNTER 2023-08-08 11:57 | Outpatient (AMB) | payer MEDICAID, SELFPAY ==
--- NOTE | 2023-08-08 12:18 | MHC.OFFVIS ---
Intake Vital Signs 08/08/23 12:19 Height 5 ft 3 in Weight 164 lb 0.383 oz BMI 29.1 BP 127/85 Blood Pressure Location Lt brachial Position Sitting Pulse 81 Intake Visit Reasons: 4 week follow up Intake Note: Patient returns to office in follow up of labs. CC: Patient underwent hernia repair about [address] Castillo. She c/o constipation and nausea. Per patient she was not able to do the stool test. She reports that she feels really tired and heavy when eating big meals. 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 pylori) Plan History of H pylori unable to tolerate quadruple therapy, was given levofloxacin and amoxicillin and able to tolerate that. Patient states that she completed the treatment. However that was over a year ago and patient never came back for retesting. We will send patient for H pylori testing again. Patient will start taking lansoprazole instead of as omeprazole in the morning. Patient was encouraged to avoid dietary triggers and late night snacking. Staying upright for minimum 3 hours after meals discussed with patient. Patient reports occasional epigastric discomfort, will check lipase. Patient reports that she is moving her bowels well, however occasionally postprandial loose stools depending on what she eats. Will check vitamin-D, B12, folate. I will see patient in 5 weeks, we will discuss going for upper endoscopy. Patient reports that she is going to have umbilical hernia repair soon awaiting re-evaluation appointment with her surgeon. Patient was seen for this in 2020, however due to hectic schedule she was unable to make the decision about going for the procedure. Her appointment is in July. Patient is agreeable to current plan of care and verbalizes understanding of instructions. She was given the opportunity to ask questions and all questions answered. ? Thank you for allowing me to participate in her care. Orders Orders Vitamin D 25-OH (D2 and D3) Today E55.9 Vitamin B12 and Folate Today R19.7 H pylori Ag Stool Today K21.9 Lipase Today R10.9 Medications New lansoprazole 30 mg PO DAILY 30 caps 3RF K21.9 TODAY'S VISIT: Patient is here today for follow-up and to discuss lab results. Patient was unable to do stool sample as she was busy getting ready for umbilical hernias repair. Patient had the surgery few days ago. Continues with postsurgical abdominal discomfort. Patient states that she is moving her bowels, however she feels like she has to strain. Patient currently is taking senna, however she only takes it on as needed basis and not daily as was previously recommended. Patient has follow-up with Dr. Woo next month. Patient denies any dyspepsia, dysphagia or odynophagia. Symptoms are suppressed with lansoprazole. Patient denies any melena, hematochezia, unintentional weight loss or ribbon like stools. Patient denies any other GI concerning symptoms PFSH Medical History Palpitations COVID Migraine Panic attack Anxiety Asthma Surgical History H/O umbilical hernia repair (07/23/23) H/O dilation and curettage Family History Maternal Grandfather Skin cancer Paternal Grandmother Colon cancer Social History Household Members: Children Housing: Apartment Do you presently have visiting nurse or other home services: No Alcohol intake: never Comment: counts correct Patient Tobacco Use Status: Former Tobacco user Quit Date: 2019 Tobacco use type: Cigarette Years Smoked: 15 Review of Systems Const Denies weight gain and Denies weight loss ENT Reports no additional complaints, Denies dysphagia and Denies odynophagia Card Reports no additional complaints Resp Reports no additional complaints GI Reports abdominal pain (Postsurgical pain), Denies belching, Denies melena, Denies bloating, Denies change in bowel habits, Reports constipation, Denies dysphagia, Denies excessive flatus, Denies dyspepsia, Denies heartburn, Denies diarrhea, Denies loose stools, Denies nausea, Denies odynophagia and Denies vomiting Musc Reports no additional complaints Neuro Reports no additional complaints Psych Reports no additional complaints Endo Reports no additional complaints Physical Exam Vital Signs: Last Vital Signs Pulse 81 08/08/23 12:19 BP 127/85 08/08/23 12:19 BMI result Body Mass Index 29.1 Const General: healthy appearing, no acute distress and well developed Nutritional Appearance: well nourished and obese Orientation/consciousness: patient oriented x3 Resp Effort & Inspection: normal respiratory effort, able to speak in complete sentences, no tracheal deviation and symmetric chest movement Auscultation: clear to auscultation bilaterally Cardio Rate: regular rate GI Inspection: Yes normal to inspection, No distended and Yes other (Surgical scar umbilicus) Palpation (GI): Soft to palpation, not firm, nontender and No hepatosplenomegaly present Auscultation: normal bowel sounds General: Yes no CVA tenderness Back/Spine/Pelvis Back: no CVA tenderness Skin General skin exam: elasticity normal, turgor normal and dry skin Neuro General: patient oriented x3 Psych Appearance: grossly normal Mental Status: mental status grossly normal Results Reviewed Results Reviewed: Laboratory Tests 07/12/23 16:00 Lipase 29 Vitamin B12 270 25-OH Vitamin D Total 19 L Folate 14.4 Assessment & Plan Assessment & Plan (1) GERD (gastroesophageal reflux disease): Code(s): K21.9 - Gastro-esophageal reflux disease without esophagitis Qualifiers: Esophagitis presence: esophagitis presence not specified Qualified Code(s): K21.9 - Gastro-esophageal reflux disease without esophagitis (2) Abdominal pain: Code(s): R10.9 - Unspecified abdominal pain Qualifiers: Abdominal location: periumbilical Qualified Code(s): R10.33 - Periumbilical pain (3) IBS (irritable bowel syndrome): Code(s): K58.9 - Irritable bowel syndrome without diarrhea Qualifiers: Irritable bowel syndrome type: without diarrhea Qualified Code(s): K58.9 - Irritable bowel syndrome without diarrhea (4) Constipation: Code(s): K59.00 - Constipation, unspecified Qualifiers: Constipation type: slow transit constipation Qualified Code(s): K59.01 - Slow transit constipation Plan Slow transit constipation, however currently patient has been on oxycodone and constipation related most likely to that and the fact that she is not getting around as much, only few days postop. Patient can take Colace 2 capsules in addition to senna. Low vitamin-D will be replaced. Patient was encouraged to increase fluid intake and activity to promote better bowel motility. Continue taking lansoprazole. Patient was encouraged to get H pylori testing done when able. I will see patient in 3 months, sooner on as needed basis. Patient is agreeable to this plan and verbalizes understanding of instructions. She was given the opportunity to ask questions and all questions answered. Thank you for allowing me to participate in her care Medications: New cholecalciferol (vitamin D3) 50 mcg PO DAILY 30 caps 3RF R79.89 - Other specified abnormal findings of blood chemistry docusate sodium 200 mg (2 x 100 mg) PO BEDTIME 180 caps 3RF K59.00 - Constipation, unspecified Changed From sennosides (senna) 2 tabs PO BEDTIME To sennosides (senna) 17.2 mg (2 x 8.6 mg) PO BEDTIME 60 tabs 2RF Coding Level of Care Code Est Pt Level 4 (95752) Diagnoses Gastroesophageal reflux disease, unspecified whether esophagitis present K21.9 Esophagitis presence: esophagitis presence not specified Periumbilical abdominal pain R10.33 Abdominal location: periumbilical Irritable bowel syndrome without diarrhea K58.9 Irritable bowel syndrome type: without diarrhea Slow transit constipation K59.01 Constipation type: slow transit constipation Time Spent (min) 35 Comment 20 minutes spent with patient and additional 15 minutes spent reviewing her records
[2023-08-08 12:19] VITALS: BP 127/85; PULSE 81; BMI 29.1
== END 2023-08-08 12:57 | disposition home or self-care (01) ==
PROVIDERS: PCP Registered Nurse; Visit Provider Nurse Practitioner Family
DX: K21.9 Gastro-esophageal reflux disease without esophagitis (principal); R10.33 Periumbilical pain; K58.9 Irritable bowel syndrome, unspecified; K59.01 Slow transit constipation
CPT/HCPCS: 99214

== ENCOUNTER → 2023-08-08 11:57 | Outpatient (BNVA) | payer MEDICAID, SELFPAY | PROVIDERS: PCP Registered Nurse; Visit Provider Nurse Practitioner Family | DX: K21.9 Gastro-esophageal reflux disease without esophagitis (principal); K58.9 Irritable bowel syndrome, unspecified; K59.01 Slow transit constipation; R10.33 Periumbilical pain | CPT/HCPCS: 99212 ==

== ENCOUNTER 2023-08-28 09:42 | Outpatient (AMB) | payer MEDICAID, SELFPAY ==
--- NOTE | 2023-08-28 09:54 | A.OFFVIS_ITS ---
Intake Vital Signs 08/28/23 09:57 Height 5 ft 3 in Weight 164 lb 2 oz BMI 29.1 BP 138/85 Blood Pressure Location Lt brachial Position Sitting Pulse 78 Intake Visit Reasons: 1 mth follow up umbilical hernia repair Intake Note: Patient is seen in office for one month follow up visit, post umbilical hernia repair. 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 Accompanied by: Other Relationship Allergies ibuprofen Allergy (Mild, Verified 08/28/23 09:57) Gastrointestinal Upset Iodinated Contrast Media Allergy (Verified 08/28/23 09:57) Swelling Medication List - Last Reconciled 08/28/23 by Bandar Woo MD acetaminophen 500 mg PO Q6H PRN albuterol sulfate 90 mcg/actuation (ProAir HFA) 2 puffs PO Q6H PRN buspirone 15 mg PO 3XW cetirizine 1 tab PO BEDTIME cholecalciferol (vitamin D3) 50 mcg PO DAILY cyanocobalamin (vitamin B-12) 1 tab PO DAILY cyclobenzaprine 10 mg PO TID PRN divalproex ER 1 tab PO BEDTIME docusate sodium 200 mg (2 x 100 mg) PO BEDTIME fluoxetine 1 cap PO BEDTIME fluticasone propionate 220 mcg/actuation (Flovent HFA) 1 puff inhalation BID hydroxyzine HCl 1 tab PO BID PRN lansoprazole 30 mg PO DAILY metoprolol tartrate 1 tab PO BID ondansetron 4 mg PO Q6H PRN PNV,calcium 28-[id number]-rbefi acid 27 mg iron- 1 mg (WesTab Plus) 1 tab PO BEDTIME risperidone 0.5 mg PO BEDTIME sennosides (senna) 17.2 mg (2 x 8.6 mg) PO BEDTIME sumatriptan succinate 50 mg PO Q2H PRN verapamil ER 1 cap PO BEDTIME HPI HPI Comments History of Present Illness Details 33-year-old female patient returning 1 m [address] following repair of an umbilical hernia. She tolerated the procedure well but does have occasional discomfort in the incision with lifting. She denies any nausea or vomiting, discharge from the incision. [facility] Medical History Palpitations COVID Migraine Panic attack Anxiety Asthma Surgical History H/O umbilical hernia repair (07/23/23) H/O dilation and curettage Family History Maternal Grandfather Skin cancer Paternal Grandmother Colon cancer Social History Household Members: Children Housing: Apartment Do you presently have visiting nurse or other home services: No Alcohol intake: never Comment: counts correct Patient Tobacco Use Status: Former Tobacco user Quit Date: 2019 Tobacco use type: Cigarette Years Smoked: 15 Physical Exam Const General: no acute distress Nutritional Appearance: well nourished Orientation/consciousness: patient oriented x3 Resp Effort & Inspection: normal respiratory effort GI Other: Umbilical incision is clean, dry, and intact without redness or discharge. No hernias noted with Valsalva maneuvers. Neuro General: patient oriented x3 Assessment & Plan Assessment & Plan (1) Umbilical hernia: Code(s): K42.9 - Umbilical hernia without obstruction or gangrene Qualifiers: Obstruction and gangrene presence: without obstruction or gangrene Qualified Code(s): K42.9 - Umbilical hernia without obstruction or gangrene Plan 33-year-old female patient status post repair of an umbilical hernia with mesh 1 month ago. Her wounds are clean and intact without redness or discharge. No hernias noted with Valsalva maneuvers. She may resume normal activity and may return to work full duty as of 09/10/2023. She should follow up as needed. Coding Level of Care Code Global (14856) Diagnoses Umbilical hernia without obstruction and without gangrene K42.9 Obstruction and gangrene presence: without obstruction or gangrene
[2023-08-28 09:57] VITALS: BP 138/85; PULSE 78; BMI 29.1
== END 2023-08-28 10:01 | disposition home or self-care (01) ==
PROVIDERS: PCP Registered Nurse; Visit Provider Surgery
DX: K42.9 Umbilical hernia without obstruction or gangrene (principal)
CPT/HCPCS: 99212

== ENCOUNTER → 2023-08-28 09:42 | Outpatient (BNVA) | payer MEDICAID, SELFPAY | PROVIDERS: PCP Registered Nurse; Visit Provider Surgery | DX: K42.9 Umbilical hernia without obstruction or gangrene (principal) | CPT/HCPCS: 99212 ==

== ENCOUNTER 2023-10-09 14:05 | Outpatient (REF) | payer MEDICAID, SELFPAY ==
[2023-10-09 18:25] LABS: HCG Quantitative < 2 mIU/mL
== END 2023-10-09 14:06 | disposition home or self-care (01) ==
LOC: HO.CHCLDS 14:05
PROVIDERS: Visit Provider Internal Medicine
DX: N92.6 Irregular menstruation, unspecified (principal); R35.0 Frequency of micturition
CPT/HCPCS: 36415; 84702; 87086; 87088; 87186

== ENCOUNTER 2023-10-26 10:31 | Emergency (ER) | payer MEDICAID, SELFPAY ==
--- NOTE | ~2023-10-26 | US_ITS ---
EXAMINATION: US OBSTETRICAL ULTRASOUND US pelvic ovarian Doppler CLINICAL INFORMATION: Pelvic pain. History of ectopic . COMPARISON: CT abdomen/pelvis from 11/28/2021. Pelvic ultrasound from 01/24/2022. LMP: 09/02/2023. Gestational age by maternal dates is 7 weeks, 5 days. Estimated date of delivery by maternal dates is 06/08/2024. TECHNIQUE: Sonographic imaging of the pelvis is performed using transabdominal and transvaginal transducers. Duplex Doppler imaging with spectral waveform analysis of the ovaries is performed. FINDINGS: The anteverted, anteflexed uterus has normal myometrial echotexture. No evidence of uterine leiomyoma. The cervix is normal; it measures approximately 3 cm in length. A cystic structure within the endometrial cavity has a mean diameter of 0.8 cm which suggests a gestational age of 5 weeks, 3 days. There is a small linear echogenicity within the gestational sac but no convincing yolk sac. Currently, no pole is identified. There is a trace amount of subchorionic fluid. MATERNAL ADNEXA: The right ovary is 2.2 x 1.1 x 1.7 cm and left ovary 2.6 x 3 x 1.9 cm. 1.7 cm corpus luteum within the left ovary. No adnexal masses. The color Doppler images with spectral waveforms document presence of arterial venous flow within each ovary. No pelvic free fluid. US/US OB pelvic and transvaginal IMPRESSION: * Although there appears to be a gestational sac in the fundal portion of the endometrium, there is no convincing yolk sac or pole. Based on the mean sac diameter, the estimated gestational age is 5 weeks, 3 days. Recommend correlation with the trend in quantitative beta hCG levels and if they are progressively rising, then obtain ultrasound follow-up to ensure evolution into a normal viable intrauterine gestation. Consider follow-up in 14 days, if deemed appropriate. * No evidence of ectopic . No pelvic free fluid.
--- NOTE | ~2023-10-26 | US_ITS ---
EXAMINATION: US OBSTETRICAL ULTRASOUND US pelvic ovarian Doppler CLINICAL INFORMATION: Pelvic pain. History of ectopic . COMPARISON: CT abdomen/pelvis from 11/28/2021. Pelvic ultrasound from 01/24/2022. LMP: 09/02/2023. Gestational age by maternal dates is 7 weeks, 5 days. Estimated date of delivery by maternal dates is 06/08/2024. TECHNIQUE: Sonographic imaging of the pelvis is performed using transabdominal and transvaginal transducers. Duplex Doppler imaging with spectral waveform analysis of the ovaries is performed. FINDINGS: The anteverted, anteflexed uterus has normal myometrial echotexture. No evidence of uterine leiomyoma. The cervix is normal; it measures approximately 3 cm in length. A cystic structure within the endometrial cavity has a mean diameter of 0.8 cm which suggests a gestational age of 5 weeks, 3 days. There is a small linear echogenicity within the gestational sac but no convincing yolk sac. Currently, no pole is identified. There is a trace amount of subchorionic fluid. MATERNAL ADNEXA: The right ovary is 2.2 x 1.1 x 1.7 cm and left ovary 2.6 x 3 x 1.9 cm. 1.7 cm corpus luteum within the left ovary. No adnexal masses. The color Doppler images with spectral waveforms document presence of arterial venous flow within each ovary. No pelvic free fluid. US/US pelvic ovarian doppler IMPRESSION: * Although there appears to be a gestational sac in the fundal portion of the endometrium, there is no convincing yolk sac or pole. Based on the mean sac diameter, the estimated gestational age is 5 weeks, 3 days. Recommend correlation with the trend in quantitative beta hCG levels and if they are progressively rising, then obtain ultrasound follow-up to ensure evolution into a normal viable intrauterine gestation. Consider follow-up in 14 days, if deemed appropriate. * No evidence of ectopic . No pelvic free fluid.
[2023-10-26 10:36] VITALS: BP 141/92; PULSE 68; RESP 20; TEMP 36.5; O2SAT 100; BMI 30.1
[2023-10-26 11:19] LABS: MANUAL DIFF FLAG NO
[2023-10-26 11:20] LABS: Basophils Percent Auto 0.6 % (0-2); Eosinophils Absolute Auto 0.1 X10*3/uL (0.0-0.4); Eosinophils Percent Auto 1.6 % (0-4); Hematocrit 39.8 % (37.0-47.0); Hemoglobin 13.3 g/dl (12.0-16.0); Imm Gran Abs Auto 0.02 X10*3/uL (0.00-0.03); Imm Gran Pct Auto 0.3 % (0.0-0.4); Lymphocytes Percent Auto 32.4 % (20-40); Mean Corpuscular HGB Conc 33.4 g/dl (31.0-35.0); Mean Corpuscular Hemoglobin 27.7 pg (27.0-33.0); Mean Corpuscular Volume 82.9 fL (80.0-98.0); Mean Platelet Volume 10.3 fL (9.4-12.3); Monocytes Absolute Auto 0.3 X10*3/uL (0.1-1.2); Monocytes Percent Auto 5.3 % (2-11); Neutrophils Absolute Auto 3.8 x10*3/uL (2.0-8.3); Neutrophils Percent Auto 59.8 % (45-73); Platelet Count 306 X10*3/uL (160-400); Red Cell Distribution Width 14.1 % (11.0-16.0); White Blood Count 6.3 X10*3/uL (4.8-10.8)
[2023-10-26 11:29] LABS: Appearance Urine Clear; Color Urine Yellow; Glucose Urine UA Negative (Negative); Leukocyte Esterase Urine Negative (Negative); Nitrite Urine Negative (Negative); Urine Blood Negative (Negative); Urine Ketones Negative (Negative); Urine Protein Negative (Neg-Trace)
[2023-10-26 11:31] LABS: UPreg QC Valid YES; Urine Pregnancy POSITIVE (NEGATIVE)
[2023-10-26 11:46] LABS: Alanine Aminotransferase 11 U/L (0-31); Albumin Level 4.1 g/dL (3.5-5.0); Alkaline Phosphatase 69 U/L (39-117); Anion Gap 13 (12-20); Aspartate Amino Transferase 16 U/L (5-31); Bilirubin Total 0.2 mg/dL (0.0-1.0); Blood Urea Nitrogen 8 mg/dL (9-16); Calcium 9.7 mg/dL (8.4-10.2); Carbon Dioxide 21 mmol/L (22-29); Chloride 110 mmol/L (96-108); Creatinine Clr Calc Pharmacy 100.3; Estimated Glomerular Filt Rate > 60; Glucose Random 100 mg/dL (60-115); Lipase 33 U/L (8-78); Magnesium 2.1 mg/dL (1.6-2.6); Potassium 4.1 mmol/L (3.3-5.1); Sodium 140 mmol/L (135-145); Total Protein 7.1 g/dL (6.5-8.0)
[2023-10-26 11:47] LABS: HCG Quantitative 13244 mIU/mL
[2023-10-26 16:49] VITALS: BP 110/64; PULSE 71; RESP 16; TEMP 36.6; O2SAT 99
--- NOTE | 2023-10-26 17:44 | ED.ABDPAIN ---
HPI - Abdominal Pain General Chief Complaint: Abdominal Pain Stated Complaint: headache Time Seen by Provider: 10/26/23 17:30 Source: patient Mode of arrival: ambulatory Limitations: no limitations History of Present Illness HPI narrative: 33 year old female A3 with pmhx significant for migraines, anxiety, panic attack, and asthma presents to the ED today for evaluation of lower abdominal discomfort and vaginal spotting x3 days. Her LMP was 1 month ago. She reports testing negative via at-home test at home over the last two weeks. She has also followed up with her PCP over the last month with multiple negative serum hcgs. Endorses 3 previous miscarriages requiring D&C. Denies clotting. Denies fever, chills, N/V, back pain, flank pain, dysuria, hematuria. She has not been taking any OTC pain medications at home for this. Related Data Home Medications ?Medication ?Instructions ?Recorded ?Confirmed cetirizine 10 mg tablet 1 tab PO BEDTIME 10/29/20 08/28/23 albuterol sulfate 90 mcg/actuation 2 puff PO Q6H PRN Shortness Of 07/20/21 08/28/23 aerosol inhaler (ProAir HFA) Breath Or Wheezing sumatriptan succinate 50 mg tablet 50 mg PO Q2H PRN Migraine Headache 07/20/21 08/28/23 verapamil 360 mg 24 hr 1 cap PO BEDTIME 07/20/21 08/28/23 capsule,extended release cyanocobalamin (vitamin B-12) 1 tab PO DAILY 06/24/22 08/28/23 1,000 mcg tablet divalproex 250 mg tablet,extended 1 tab PO BEDTIME 06/24/22 08/28/23 release 24 hr fluoxetine 40 mg capsule 1 cap PO BEDTIME 06/24/22 08/28/23 fluticasone propionate 220 1 puff inhalation BID 06/24/22 08/28/23 mcg/actuation HFA aerosol inhaler (Flovent HFA) hydroxyzine HCl 25 mg tablet 1 tab PO BID PRN panic attack 06/24/22 08/28/23 metoprolol tartrate 25 mg tablet 1 tab PO BID 06/24/22 08/28/23 vitamin with calcium 1 tab PO BEDTIME 06/24/22 08/28/23 no.72-iron 27 mg-folic acid 1 mg tablet (WesTab Plus) risperidone 0.5 mg tablet 0.5 mg PO BEDTIME 07/12/23 08/28/23 buspirone 15 mg tablet 15 mg PO 3XW 08/08/23 08/28/23 Previous Rx's ?Medication ?Instructions ?Recorded ondansetron 4 mg disintegrating 4 mg PO Q6H PRN nausea and 05/30/22 tablet vomiting #10 tabs acetaminophen 500 mg tablet 500 mg PO Q6H PRN pain #20 tabs 11/26/22 cyclobenzaprine 10 mg tablet 10 mg PO TID PRN muscle spasm #7 11/26/22 tabs cholecalciferol (vitamin D3) 50 50 mcg PO DAILY #30 caps 08/08/23 mcg (2,000 unit) capsule docusate sodium 100 mg capsule 200 mg (2 x 100 mg) PO BEDTIME 08/08/23 #180 caps sennosides 8.6 mg tablet (senna) 17.2 mg (2 x 8.6 mg) PO BEDTIME 08/08/23 #60 tabs lansoprazole 30 mg capsule,delayed 30 mg PO DAILY #30 caps 10/04/23 release Allergies Allergy/AdvReac Type Severity Reaction Status Date / Time ibuprofen Allergy Mild Gastrointestinal Verified 10/26/23 10:39 Upset Iodinated Contrast Media Allergy Swelling Verified 10/26/23 10:39 Review of Systems Review of Systems Constitutional: No fever, chills, fatigue, night sweats, weight changes ENT/Mouth: No ear pain, hearing loss, nasal congestion, sinus pain, rhinorrhea, sore throat Eyes: No eye pain, swelling, redness, vision changes, discharge Cardio: No chest pain, palpitations, NIX, orthopnea, peripheral edema Pulm: No SOB, cough, sputum, wheezing, dyspnea, hemoptysis GI: No nausea, vomiting, hematemesis, abdominal pain, diarrhea, constipation, hematochezia, melena, +abd pain : No dysuria, frequency, urgency, hesitancy, hematuria, flank pain, urinary flow changes, urinary incontinence or retention, +vaginal spotting MSK: No back pain, neck pain, joint pain, myalgias Skin: No lesions, rashes Neuro: No weakness, numbness, paresthesias, LOC, dizziness, headache Psych: No anxiety/panic, depression, SI/HI, AH/VH All other systems reviewed and are negative. [facility] Past Medical History Attestation statement: The following information was validated with the patient. Source: old records reviewed and nursing notes reviewed Medical History Palpitations COVID Migraine Panic attack Anxiety Asthma Surgical History H/O umbilical hernia repair (07/23/23) H/O dilation and curettage Family History Family History Maternal Grandfather Skin cancer Paternal Grandmother Colon cancer Social History Social History Household Members: Children Housing: Apartment Do you presently have visiting nurse or other home services: No Alcohol intake: never Comment: counts correct Patient Tobacco Use Status: Former Tobacco user Quit Date: 2019 Tobacco use type: Cigarette Years Smoked: 15 Advance Directives: No Advance Directives Information Provided: No Do you have a plan to hurt others: No Plan Physical Exam ED Vital Signs: Vital Signs - 24 hr 10/26/23 10:36 10/26/23 16:49 10/26/23 18:07 Temperature 97.7 F 98 F 98 F Pulse Rate 68 71 71 Respiratory Rate 20 16 16 Blood Pressure 141/92 H 110/64 110/64 Pulse Oximetry 100 99 99 Oxygen Delivery Method Room Air Room Air Room Air BMI result Body Mass Index 30.1 Vital signs stable Const General: cooperative, healthy appearing, comfortable and no acute distress Orientation/consciousness: patient oriented x3 Limitations: no limitations HENMT Head: Yes normal to inspection, Yes No palpable skull fracture present, Yes normocephalic and Yes atraumatic Eyes General: appearance normal, both eyes and all related structures Neck Neck: Yes normal visual inspection Resp Effort & Inspection: normal respiratory effort and able to speak in complete sentences Auscultation: clear to auscultation bilaterally Cardio Rate: regular rate Rhythm: regular rhythm GI Other: + obese abdomen, soft, nondistended, non-tender to palpation, no rebound tenderness or guarding, normoactive bs x4 Inspection: Yes normal to inspection Other: + patient declining pelvic examination General: Yes no CVA tenderness Back/Spine/Pelvis Back: no CVA tenderness Neuro General: patient oriented x3 Extrem General: Yes normal to inspection Course Course Course Narrative: 1800-- CBC without leukocytosis or left shift. No anemia. H&H stable at 13.3/39.8. Chemistry without acute electrolyte abnormality requiring intervention. Normal renal and liver function. Beta HCG 13,244. Urine is negative for infection and blood. Urine positive for . Pelvic/transvaginal ultrasound showing possible gestational sac in the fundal portion of the endometrium without convincing yolk sac or pole. Based on the mean sac diameter, the estimated gestational age is 5 weeks and 3 days. Recommendation with serial beta HCG levels recommended. > discussed all work up results with patient. i offered pelvic exam to observe cervical os/ vaginal canal. patient is declining at this time and would like to follow up with her OBGYN for this. I advised patient call Sunday morning to make an urgent appointment for serial beta HCG levels to determine if this is a viable . She verbalizes understanding. I informed her to return to the ED for increased bleeding, clotting, fevers, etc. Patient has remained stable throughout ED visit today. Discussed worrisome signs and symptoms and when to return to the ED. All questions answered at this time. Patient is agreeable with disposition and stable for discharge. Medical Decision Making Medical Decision Making [facility] Narrative: 33 year old female A3 with pmhx significant for migraines, anxiety, panic attack, and asthma presents to the ED today for evaluation of lower abdominal discomfort and vaginal spotting x3 days. Vital signs stable, afebrile. She is nontoxic-appearing and in no acute distress. Abdomen is soft, nondistended, nontender, no rebound tenderness or guarding. Normoactive bowel sounds x4. No CVAT bilaterally. Patient declining pelvic exam at this time. Differential diagnosis includes IUP, ectopic , UTI, ovarian cyst, ovarian cyst rupture. Unlikely torsion, appendicitis, diverticulosis, diverticulitis. Plan for labs, UA, ultrasound, and re-evaluation. Differential Diagnosis Differential Diagnoses: The differential diagnosis associated with the presentation includes as above. Admission/Observation Not indicated Lab Data [facility] Lab Attestation statement: I reviewed the patient's lab results. As above 10/26/23 11:11 10/26/23 11:11 Labs: Lab Results 05/17/24 Range/Units 11:11 WBC 6.3 (4.8-10.8) X10*3/uL RBC 4.80 (4.20-5.50) X10*6/uL Hgb 13.3 (12.0-16.0) g/dl Hct 39.8 (37.0-47.0) % MCV 82.9 (80.0-98.0) fL MCH 27.7 (27.0-33.0) pg MCHC 33.4 (31.0-35.0) g/dl RDW 14.1 (11.0-16.0) % Plt Count 306 (160-400) X10*3/uL MPV 10.3 (9.4-12.3) fL Immature Gran % (Auto) 0.3 (0.0-0.4) % Neut % (Auto) 59.8 (45-73) % Lymph % (Auto) 32.4 (20-40) % [place] % (Auto) 5.3 (2-11) % Eos % (Auto) 1.6 (0-4) % Baso % (Auto) 0.6 (0-2) % Lymph # (Auto) 2.0 (1.2-4.9) X10*3/uL [place] # (Auto) 0.3 (0.1-1.2) X10*3/uL Eos # (Auto) 0.1 (0.0-0.4) X10*3/uL Baso # (Auto) 0.0 (0.0-0.2) X10*3/uL Abs Immat Gran (auto) 0.02 (0.00-0.03) X10*3/uL Absolute Neuts (auto) 3.8 (2.0-8.3) x10*3/uL Absolute Nucleated RBC 0.000 (0.0-0.012) X10*3/uL Nucleated RBC % (auto) 0.0 (0.0-0.2) /100WBC Sodium 140 (135-145) mmol/L Potassium 4.1 (3.3-5.1) mmol/L Chloride 110 H (96-108) mmol/L Carbon Dioxide 21 L (22-29) mmol/L Anion Gap 13 (12-20) BUN 8 L (9-16) mg/dL Creatinine 0.77 (0.5-1.4) mg/dL Estim Creat Clear Calc 100.3 Estimated GFR > 60 Random Glucose 100 (60-115) mg/dL Calcium 9.7 (8.4-10.2) mg/dL Magnesium 2.1 (1.6-2.6) mg/dL Total Bilirubin 0.2 (0.0-1.0) mg/dL AST 16 (5-31) U/L ALT 11 (0-31) U/L Alkaline Phosphatase 69 (39-117) U/L Total Protein 7.1 (6.5-8.0) g/dL Albumin 4.1 (3.5-5.0) g/dL Lipase 33 (8-78) U/L Beta HCG, Quant 90574 mIU/mL Urine Color Yellow Urine Appearance Clear Urine pH 8.0 (5.0-9.0) Ur Specific [place] 1.020 (1.005-1.025) Urine Protein Negative (Neg-Trace) mg/dL Urine Glucose (UA) Negative (Negative) mg/dL Urine Ketones Negative (Negative) mg/dL Urine Blood Negative (Negative) Urine Nitrite Negative (Negative) Ur Leukocyte Esterase Negative (Negative) Urine Test POSITIVE H (NEGATIVE) Independent Interpretation I performed an independent interpretation of an: Ultrasound Radiology Impression Discussion of test interpretation with radiology: I have reviewed the radiologist's reading. Radiologist Impression: EXAMINATION: US OBSTETRICAL ULTRASOUND US pelvic ovarian Doppler CLINICAL INFORMATION: Pelvic pain. History of ectopic . COMPARISON: CT abdomen/pelvis from 11/28/2021. Pelvic ultrasound from 01/24/2022. LMP: 09/02/2023. Gestational age by maternal dates is 7 weeks, 5 days. Estimated date of delivery by maternal dates is 06/08/2024. TECHNIQUE: Sonographic imaging of the pelvis is performed using transabdominal and transvaginal transducers. Duplex Doppler imaging with spectral waveform analysis of the ovaries is performed. FINDINGS: The anteverted, anteflexed uterus has normal myometrial echotexture. No evidence of uterine leiomyoma. The cervix is normal; it measures approximately 3 cm in length. A cystic structure within the endometrial cavity has a mean diameter of 0.8 cm which suggests a gestational age of 5 weeks, 3 days. There is a small linear echogenicity within the gestational sac but no convincing yolk sac. Currently, no pole is identified. There is a trace amount of subchorionic fluid. MATERNAL ADNEXA: The right ovary is 2.2 x 1.1 x 1.7 cm and left ovary 2.6 x 3 x 1.9 cm. 1.7 cm corpus luteum within the left ovary. No adnexal masses. The color Doppler images with spectral waveforms document presence of arterial venous flow within each ovary. No pelvic free fluid. US/US OB pelvic and transvaginal IMPRESSION: * Although there appears to be a gestational sac in the fundal portion of the endometrium, there is no convincing yolk sac or pole. Based on the mean sac diameter, the estimated gestational age is 5 weeks, 3 days. Recommend correlation with the trend in quantitative beta hCG levels and if they are progressively rising, then obtain ultrasound follow-up to ensure evolution into a normal viable intrauterine gestation. Consider follow-up in 14 days, if deemed appropriate. * No evidence of ectopic . No pelvic free fluid. External Record Review External record reviewed: Inpatient record, Office record, Outpatient record, Prior outpatient labs, Prior outpatient radiology, Primary care record and Outside ED record Prescription Management I considered prescription management with: Pain Medication Social Determinants Patient?s care significantly limited by Social Determinants of Health including: Other Social Determinant of Health Critical Care Time Critical Care Time Critical Care Time: No Discharge Plan Discharge Clinical Impression: Positive blood test Patient Disposition: Home, Self-Care Instructions: (ED) Additional Instructions: Your blood test was positive today. bHCG [place] 36065. As discussed, your pelvic ultrasound shows: A cystic structure within the endometrial cavity has a mean diameter of 0.8 cm which suggests a gestational age of 5 weeks, 3 days. There is a small linear echogenicity within the gestational sac but no convincing yolk sac. Currently, no pole is identified. There is a trace amount of subchorionic fluid. You need to follow up with your OBGYN for serial beta HCG measurements to ensure this is a viable pregnany. Call them Sunday morning to schedule an urgent visit. As discussed, return to the ED if you begin to have heavy bleeding/ clotting, have uncontrollable abdominal pain, or if you spike a fever. In the case of an emergency call 911. Prescriptions: No Action lansoprazole 30 mg capsule,delayed release(DR/EC) 30 mg PO DAILY Qty: 30 3RF cetirizine 10 mg tablet 1 tab PO BEDTIME fluoxetine 40 mg capsule 1 cap PO BEDTIME cyanocobalamin (vitamin B-12) 1,000 mcg tablet 1 tab PO DAILY hydroxyzine HCl 25 mg tablet 1 tab PO BID PRN (Reason: panic attack) fluticasone propionate [Flovent HFA] 220 mcg/actuation HFA aerosol inhaler 1 puff INHALATION BID divalproex 250 mg tablet extended release 24 hr 1 tab PO BEDTIME metoprolol tartrate 25 mg tablet 1 tab PO BID Rx Instructions: take with food WesTab Plus 27 mg iron- 1 mg tablet 1 tab PO BEDTIME verapamil 360 mg capsule,ext rel. pellets 24 hr 1 cap PO BEDTIME sumatriptan succinate 50 mg tablet 50 mg PO Q2H PRN (Reason: Migraine Headache) Rx Instructions: MAX DOSE 200MG / 24 HOURS albuterol sulfate [ProAir HFA] 90 mcg/actuation HFA aerosol inhaler 2 puff PO Q6H PRN (Reason: Shortness Of Breath Or Wheezing) acetaminophen 500 mg tablet 500 mg PO Q6H PRN (Reason: pain) Qty: 20 0RF cyclobenzaprine 10 mg tablet 10 mg PO TID PRN (Reason: muscle spasm) Qty: 7 0RF ondansetron 4 mg tablet,disintegrating 4 mg PO Q6H PRN (Reason: nausea and vomiting) Qty: 10 0RF risperidone 0.5 mg tablet 0.5 mg PO BEDTIME buspirone 15 mg tablet 15 mg PO 3XW sennosides [senna] 8.6 mg tablet 17.2 mg PO BEDTIME Qty: 60 2RF docusate sodium 100 mg capsule 200 mg PO BEDTIME Qty: 180 3RF cholecalciferol (vitamin D3) 50 mcg (2,000 unit) capsule 50 mcg PO DAILY Qty: 30 3RF Referrals: [facility] [place] [facility] [Provider Group] Demetria Chaparro FNP [Primary Care Provider] - Interventions: ED Discharge Assessment Last Done: 10/26/23 18:07 Discharge Date/Time: 10/26/23 18:09 Print Language: Irish
[2023-10-26 18:07] VITALS: BP 110/64; PULSE 71; RESP 16; TEMP 36.6; O2SAT 99
== END 2023-10-26 18:09 | disposition home or self-care (01) ==
PROVIDERS: Physician Assistant Medical; Emergency Provider Internal Medicine; PCP Registered Nurse
DX: Z32.01 Encounter for pregnancy test, result positive (principal); R10.2 Pelvic and perineal pain; Z79.899 Other long term (current) drug therapy
CPT/HCPCS: 36415; 76801; 76817; 80053; 81003; 81025; 83690; 83735; 84702; 85025; 93975; 99284

== ENCOUNTER 2023-12-13 01:41 | Emergency (ER) | payer MEDICAID, SELFPAY ==
--- NOTE | ~2023-12-13 | US_ITS ---
EXAMINATION: US OBSTETRICAL ULTRASOUND CLINICAL INFORMATION: Heavy vaginal bleeding status post medical COMPARISON: OB ultrasound 10/26/2023. TECHNIQUE: Transabdominal pelvic ultrasonography. FINDINGS: Heterogeneous echogenicity is present in the endometrial cavity measuring approximately 2.3 cm in diameter with no measurable color flow. Uterus is anteverted and measures approximately 9.5 cm in maximum length. Color flow suggests diffuse hyperemia of the uterus. The right ovary measures 2.27 x 1.4 cm x 1.1 cm. The left ovary measures 2.8 cm x 2.07 x 2.4 cm. Grossly normal color flow is noted within the ovaries. Spectral waveforms are not obtained within the ovaries. No free intraperitoneal fluid noted. US/US OB pelvic and transvaginal IMPRESSION: *Complex fluid collection within the endometrial cavity measuring approximately 2 cm in diameter associated with diffuse endometrial and myometrial hyperemia. Findings could represent retained products. The diffuse uterine hyperemia is suspicious for possible infection or could represent postprocedural hyperemia. Grossly normal appearance of the ovaries.
[2023-12-13 01:47] VITALS: BP 129/84; PULSE 113; RESP 22; TEMP 36.9; O2SAT 100; BMI 29.4
[2023-12-13 02:16] LABS: MANUAL DIFF FLAG NO
[2023-12-13 02:18] LABS: Basophils Percent Auto 0.3 % (0-2); Eosinophils Absolute Auto 0.2 X10*3/uL (0.0-0.4); Eosinophils Percent Auto 1.3 % (0-4); Hematocrit 33.3 % (37.0-47.0); Hemoglobin 11.5 g/dl (12.0-16.0); Imm Gran Abs Auto 0.05 X10*3/uL (0.00-0.03); Imm Gran Pct Auto 0.4 % (0.0-0.4); Lymphocytes Absolute Auto 3.1 X10*3/uL (1.2-4.9); Lymphocytes Percent Auto 25.8 % (20-40); Mean Corpuscular HGB Conc 34.5 g/dl (31.0-35.0); Mean Corpuscular Volume 81.2 fL (80.0-98.0); Mean Platelet Volume 10.4 fL (9.4-12.3); Monocytes Absolute Auto 0.5 X10*3/uL (0.1-1.2); Monocytes Percent Auto 4.3 % (2-11); Neutrophils Absolute Auto 8.1 x10*3/uL (2.0-8.3); Neutrophils Percent Auto 67.9 % (45-73); Platelet Count 306 X10*3/uL (160-400); Red Cell Distribution Width 13.6 % (11.0-16.0); White Blood Count 11.9 X10*3/uL (4.8-10.8)
[2023-12-13 02:23] LABS: Appearance Urine Cloudy; Glucose Urine UA Negative (Negative); Leukocyte Esterase Urine Trace (Negative); Nitrite Urine Negative (Negative); Specific Gravity - Urine 1.015 (1.005-1.025); UMIC TRIGGER UACC YES; Urine Blood Large (3+) (Negative); Urine Ketones Negative (Negative); Urine Protein 30 (1+) mg/dL (Neg-Trace)
[2023-12-13 02:29] LABS: INTERNATIONAL NORM RATIO 0.9 (0.9-1.1); Prothrombin Time 11.2 SEC (11.1-13.3)
[2023-12-13 02:35] LABS: Color Urine Straw
[2023-12-13 02:36] LABS: Bacteria Urine None Seen (None Seen); Hyaline Casts Urine 0-2 /LPF (0-2); RBC Urine >20 /HPF (0-2); Squamous Epithelial Cell Urine 0-2 /HPF (0-2); WBC Urine 0-5 /HPF (0-5)
[2023-12-13 02:45] LABS: Alanine Aminotransferase 9 U/L (0-31); Albumin Level 3.8 g/dL (3.5-5.0); Alkaline Phosphatase 52 U/L (39-117); Anion Gap 14 (12-20); Aspartate Amino Transferase 13 U/L (5-31); Bilirubin Total 0.3 mg/dL (0.0-1.0); Blood Urea Nitrogen 4 mg/dL (9-16); Calcium 9.3 mg/dL (8.4-10.2); Carbon Dioxide 17 mmol/L (22-29); Chloride 111 mmol/L (96-108); Creatinine Clr Calc Pharmacy 110.6; Estimated Glomerular Filt Rate > 60; Glucose Random 106 mg/dL (60-115); Potassium 3.7 mmol/L (3.3-5.1); Sodium 138 mmol/L (135-145); Total Protein 6.3 g/dL (6.5-8.0)
[2023-12-13 02:46] LABS: HCG Quantitative 9831 mIU/mL
[2023-12-13 03:47] VITALS: BP 124/79; PULSE 77; RESP 16; TEMP 36.9; O2SAT 97
--- NOTE | 2023-12-13 05:13 | ED.PREGNANCY ---
HPI - General Chief complaint: OB Stated complaint: was , took a pill having a lot of bleeding Time Seen by Provider: 12/13/23 04:31 Source: patient Mode of arrival: ambulatory Limitations: no limitations History of Present Illness ED Provider: Dr. Bianka Sheikh HPI Narrative: Patient is a A3, comes to the emergency room complaining of heavy vaginal bleeding. Patient states that her last menstrual period, she was supposed to be 11.5 weeks. Patient states that at 8 weeks of gestational age, the fetus strep growing. Patient states that couple of days ago she went to her OBGYN, they gave her some intravaginal pills for a medical . Patient states that she has been passing a very large amount of blood clots, heavy vaginal bleeding, a lot of cramping. Patient denies UTI symptoms Related Data Home Medications ?Medication ?Instructions ?Recorded ?Confirmed cetirizine 10 mg tablet 1 tab PO BEDTIME 10/29/20 08/28/23 albuterol sulfate 90 mcg/actuation 2 puff PO Q6H PRN Shortness Of 07/20/21 08/28/23 aerosol inhaler (ProAir HFA) Breath Or Wheezing sumatriptan succinate 50 mg tablet 50 mg PO Q2H PRN Migraine Headache 07/20/21 08/28/23 verapamil 360 mg 24 hr 1 cap PO BEDTIME 07/20/21 08/28/23 capsule,extended release cyanocobalamin (vitamin B-12) 1 tab PO DAILY 06/24/22 08/28/23 1,000 mcg tablet divalproex 250 mg tablet,extended 1 tab PO BEDTIME 06/24/22 08/28/23 release 24 hr fluoxetine 40 mg capsule 1 cap PO BEDTIME 06/24/22 08/28/23 fluticasone propionate 220 1 puff inhalation BID 06/24/22 08/28/23 mcg/actuation HFA aerosol inhaler (Flovent HFA) hydroxyzine HCl 25 mg tablet 1 tab PO BID PRN panic attack 06/24/22 08/28/23 metoprolol tartrate 25 mg tablet 1 tab PO BID 06/24/22 08/28/23 vitamin with calcium 1 tab PO BEDTIME 06/24/22 08/28/23 no.72-iron 27 mg-folic acid 1 mg tablet (WesTab Plus) risperidone 0.5 mg tablet 0.5 mg PO BEDTIME 07/12/23 08/28/23 buspirone 15 mg tablet 15 mg PO 3XW 08/08/23 08/28/23 Previous Rx's ?Medication ?Instructions ?Recorded ondansetron 4 mg disintegrating 4 mg PO Q6H PRN nausea and 05/30/22 tablet vomiting #10 tabs acetaminophen 500 mg tablet 500 mg PO Q6H PRN pain #20 tabs 11/26/22 cyclobenzaprine 10 mg tablet 10 mg PO TID PRN muscle spasm #7 11/26/22 tabs cholecalciferol (vitamin D3) 50 50 mcg PO DAILY #30 caps 08/08/23 mcg (2,000 unit) capsule docusate sodium 100 mg capsule 200 mg (2 x 100 mg) PO BEDTIME 08/08/23 #180 caps lansoprazole 30 mg capsule,delayed 30 mg PO DAILY #30 caps 10/04/23 release sennosides 8.6 mg tablet (senna) 17.2 mg (2 x 8.6 mg) PO BEDTIME 11/01/23 #60 tabs Allergies Allergy/AdvReac Type Severity Reaction Status Date / Time ibuprofen Allergy Mild Gastrointestinal Verified 12/13/23 01:49 Upset Iodinated Contrast Media Allergy Swelling Verified 12/13/23 01:49 Review of Systems Review of Systems: Constitutional : No Weight loss, No Fever, No Chills, No Night Sweats, No Fatigue, No Malaise ENT/Mouth : No Hearing loss, No Ear Pain, No Nasal Congestion, No Sinus Pain, No Hoarseness, No sore throat, No Rhinorrhea, No Swallowing Difficulty Eyes: No Eye Pain, No Swelling, No Redness, No Foreign Body, No Discharge, No Vision Changes Cardiovascular : No Chest Pain, No SOB, No Dyspnea on Exertion, No Orthopnea, No Edema, No Palpitations Respiratory : No Cough, No Sputum, No Wheezing, No Smoke Exposure, No Dyspnea Gastrointestinal : No Nausea, No Vomiting, No Diarrhea, No Constipation, No abdominal Pain, No Hematochezia, No Melena Genitourinary : Leading of heavy vaginal bleeding status post 2 days of medical , No Dysuria, No Urinary Frequency, No Hematuria, No Urinary Incontinence, No Urgency, No Flank Pain, No Urinary Flow Changes, No Hesitancy Musculoskeletal : No joint pain, No Myalgias, No Joint Swelling Skin : No Skin Lesions, No rash Neuro : No Weakness, No Numbness, No Paresthesias, No Loss of Consciousness, No Dizziness, No Headache Psych : No Anxiety/Panic, No Depression, No SI/HI/AH/VH, No Social Issues, Heme/Lymph: No Bruising, No Bleeding,No Lymphadenopathy Endocrine : No Polyuria, No Polydipsia, No Temperature Intolerance [facility] Past Medical History Medical History Palpitations COVID Migraine Panic attack Anxiety Asthma Surgical History H/O umbilical hernia repair (07/23/23) H/O dilation and curettage Family History Family History Maternal Grandfather Skin cancer Paternal Grandmother Colon cancer Social History Social History Household Members: Children Housing: Apartment Do you presently have visiting nurse or other home services: No Alcohol intake: never Comment: counts correct Patient Tobacco Use Status: Former Tobacco user Tobacco use type: Cigarette Years Smoked: 15 Smoked in Last 30 Days: No Use of substances other than those prescribed or required for medical reasons: No Advance Directives: No Advance Directives Information Provided: Yes Do you have a plan to hurt others: No Plan Patient : No Physical Exam Vital Signs: Vital Signs: Last Vital Signs Temp 98.5 F 12/13/23 07:23 Pulse 71 12/13/23 07:23 Resp 18 12/13/23 07:23 BP 115/61 12/13/23 07:23 Pulse Ox 99 12/13/23 07:23 O2 Del Method Room Air 12/13/23 07:23 BMI result Body Mass Index 29.4 Const: Other: Appearance: Alert. Oriented X3. No acute distress. Eyes: Pupils equal, round and reactive to light. ENT: Pharynx normal. Neck: Normal inspection. Neck supple. No lymph nodes noted. No crepitus CVS: Normal heart rate and rhythm. Pulses normal. Normal S1 and S2 Respiratory: No respiratory distress. Breath sounds normal. No Wheezing. No rales Abdomen: Soft and nontender. No rigidity. No distention. : Patient had a large amount of blood clots and the cervical os which is completely open. Skin: Skin warm and dry. Normal skin color. Normal skin turgor. Extremities: No lower extremity edema. No Lacerations. No Rash Neuro: Oriented X 3. No motor deficit. No sensory deficit. Moving all extremities. No slurred speech. CN 2 through 12 grossly intact Psych: calm, cooperative, normal affect Medications Administered Discontinued Medications Generic Name Dose Route Start Last Admin Trade Name Garret PRN Reason Stop Dose Admin Sodium Chloride 1,000 mls @ 999 mls/hr 12/13/23 05:11 12/13/23 07:22 Ns IVCONT 12/13/23 06:11 Infused .Q1H1M ONE Infusion Morphine Sulfate 4 mg 12/13/23 05:11 12/13/23 05:42 Morphine Sulfate 4 Mg/Ml Cartridge IVPUSH 12/13/23 05:12 Not Given ONCE ONE Protocol Ondansetron HCl 4 mg 12/13/23 05:11 12/13/23 05:41 Ondansetron Hcl 4 Mg/2 Ml Vial IVPUSH 12/13/23 05:12 4 mg ONCE ONE Administration Medical Decision Making Medical Decision Making MDM Narrative: -a large amount of blood clots were pulled from the cervical os. Seems that they are still a bit of bleeding. -ultrasound pending -my interpretation of labs: White blood cell count 11.9, baseline hemoglobin is usually 13.3. Today was 11.5, normal chemistry, hCG today is 9831, on 10/26/2023 it was 13,244 -patient receiving IV fluids, Zofran and morphine for symptomatic treatment. -interpretation of ultrasound by Radiology: Complex fluid collection within the endometrial cavity measuring approximately 2 cm associated with diffuse endometrial and myometrial hyperemia, findings could represent retained products of conception. -patient's H&H dropped, now 9.8 from 11.5. -overall, patient states that she feels comfortable after Tylenol, patient refused morphine. -on cervical exam after the removal of blood clots from the cervical os, patient's bleeding decreased significantly. -on physical exam, there were 30 mL approximately of blood in the cervical os -I discussed the patient with Dr. Antonio home [facility]. The options are to give the patient 100 mg of vaginal misoprostol, observed the patient for couple of hours and reassess. Versus transferring the patient to [facility]. -I discussed the options with the patient, patient states they would be better to transfer her to [facility]. - Differential Diagnosis Differential Diagnoses: The differential diagnosis associated with the presentation includes Admission/Observation Consideration of admission/observation: Escalation of care including admission/observation considered Consult Healthcare Provider Management of the patient was discussed with: Patent Attorney Lab Data MDM Lab Attestation statement: I reviewed the patient's lab results. 12/13/23 06:05 12/13/23 02:06 Labs: Lab Results 12/13/23 12/13/23 Range/Units 02:06 06:05 WBC 11.9 H 11.0 H (4.8-10.8) X10*3/uL RBC 4.10 L 3.43 L (4.20-5.50) X10*6/uL Hgb 11.5 L 9.8 L (12.0-16.0) g/dl Hct 33.3 L 28.1 L (37.0-47.0) % MCV 81.2 81.9 (80.0-98.0) fL MCH 28.0 28.6 (27.0-33.0) pg MCHC 34.5 34.9 (31.0-35.0) g/dl RDW 13.6 13.8 (11.0-16.0) % Plt Count 306 247 (160-400) X10*3/uL MPV 10.4 10.4 (9.4-12.3) fL Immature Gran % (Auto) 0.4 (0.0-0.4) % Neut % (Auto) 67.9 (45-73) % Lymph % (Auto) 25.8 (20-40) % [place] % (Auto) 4.3 (2-11) % Eos % (Auto) 1.3 (0-4) % Baso % (Auto) 0.3 (0-2) % Lymph # (Auto) 3.1 (1.2-4.9) X10*3/uL [place] # (Auto) 0.5 (0.1-1.2) X10*3/uL Eos # (Auto) 0.2 (0.0-0.4) X10*3/uL Baso # (Auto) 0.0 (0.0-0.2) X10*3/uL Abs Immat Gran (auto) 0.05 H (0.00-0.03) X10*3/uL Absolute Neuts (auto) 8.1 (2.0-8.3) x10*3/uL Absolute Nucleated RBC 0.000 0.000 (0.0-0.012) X10*3/uL Nucleated RBC % (auto) 0.0 0.0 (0.0-0.2) /100WBC PT 11.2 (11.1-13.3) SEC INR 0.9 (0.9-1.1) Sodium 138 (135-145) mmol/L Potassium 3.7 (3.3-5.1) mmol/L Chloride 111 H (96-108) mmol/L Carbon Dioxide 17 L (22-29) mmol/L Anion Gap 14 (12-20) BUN 4 L (9-16) mg/dL Creatinine 0.69 (0.5-1.4) mg/dL Estim Creat Clear Calc 110.6 Estimated GFR > 60 Random Glucose 106 (60-115) mg/dL Calcium 9.3 (8.4-10.2) mg/dL Total Bilirubin 0.3 (0.0-1.0) mg/dL AST 13 (5-31) U/L ALT 9 (0-31) U/L Alkaline Phosphatase 52 (39-117) U/L Total Protein 6.3 L (6.5-8.0) g/dL Albumin 3.8 (3.5-5.0) g/dL Beta HCG, Quant 9831 mIU/mL Urine Color Straw Urine Appearance Cloudy Urine pH 7.0 (5.0-9.0) Ur Specific [place] 1.015 (1.005-1.025) Urine Protein 30 (1+) H (Neg-Trace) mg/dL Urine Glucose (UA) Negative (Negative) mg/dL Urine Ketones Negative (Negative) mg/dL Urine Blood Large (3+) H (Negative) Urine Nitrite Negative (Negative) Ur Leukocyte Esterase Trace H (Negative) Urine RBC >20 H (0-2) /HPF Urine WBC 0-5 (0-5) /HPF Ur Squamous Epith Cells 0-2 (0-2) /HPF Urine Bacteria None Seen (None Seen) Hyaline Casts 0-2 (0-2) /LPF Blood Type B Positive Antibody Screen NEGATIVE Independent Interpretation I performed an independent interpretation of an: Ultrasound Radiology Impression Discussion of test interpretation with radiology: I have reviewed the radiologist's reading. Radiologist Impression: Heterogeneous echogenicity is present in the endometrial cavity measuring approximately 2.3 cm in diameter with no measurable color flow. Uterus is anteverted and measures approximately 9.5 cm in maximum length. Color flow suggests diffuse hyperemia of the uterus. The right ovary measures 2.27 x 1.4 cm x 1.1 cm. The left ovary measures 2.8 cm x 2.07 x 2.4 cm. Grossly normal color flow is noted within the ovaries. Spectral waveforms are not obtained within the ovaries. No free intraperitoneal fluid noted. US/US OB pelvic and transvaginal IMPRESSION: *Complex fluid collection within the endometrial cavity measuring approximately 2 cm in diameter associated with diffuse endometrial and myometrial hyperemia. Findings could represent retained products. The diffuse uterine hyperemia is suspicious for possible infection or could represent postprocedural hyperemia. Grossly normal appearance of the ovaries. Independent Historian Clinical information obtained from an independent historian. History obtained from or confirmed by: Spouse Critical Care Time Critical Care Time Critical Care Time: Yes Total Critical Care Time: 75 Attestation: I have personally provided critical care time. Time includes review of lab data, radiology results, discussion with consultants, and monitoring for potential decompensation. Intervention performed as documented. Discharge Plan Discharge Clinical Impression: Retained products of conception following , Anemia Patient Disposition: [facility] Transfer Details: [facility], Dr. Antonio Prescriptions: No Action lansoprazole 30 mg capsule,delayed release(DR/EC) 30 mg PO DAILY Qty: 30 3RF sennosides [senna] 8.6 mg tablet 17.2 mg PO BEDTIME Qty: 60 2RF cetirizine 10 mg tablet 1 tab PO BEDTIME fluoxetine 40 mg capsule 1 cap PO BEDTIME cyanocobalamin (vitamin B-12) 1,000 mcg tablet 1 tab PO DAILY hydroxyzine HCl 25 mg tablet 1 tab PO BID PRN (Reason: panic attack) fluticasone propionate [Flovent HFA] 220 mcg/actuation HFA aerosol inhaler 1 puff INHALATION BID divalproex 250 mg tablet extended release 24 hr 1 tab PO BEDTIME metoprolol tartrate 25 mg tablet 1 tab PO BID Rx Instructions: take with food WesTab Plus 27 mg iron- 1 mg tablet 1 tab PO BEDTIME verapamil 360 mg capsule,ext rel. pellets 24 hr 1 cap PO BEDTIME sumatriptan succinate 50 mg tablet 50 mg PO Q2H PRN (Reason: Migraine Headache) Rx Instructions: MAX DOSE 200MG / 24 HOURS albuterol sulfate [ProAir HFA] 90 mcg/actuation HFA aerosol inhaler 2 puff PO Q6H PRN (Reason: Shortness Of Breath Or Wheezing) acetaminophen 500 mg tablet 500 mg PO Q6H PRN (Reason: pain) Qty: 20 0RF cyclobenzaprine 10 mg tablet 10 mg PO TID PRN (Reason: muscle spasm) Qty: 7 0RF ondansetron 4 mg tablet,disintegrating 4 mg PO Q6H PRN (Reason: nausea and vomiting) Qty: 10 0RF risperidone 0.5 mg tablet 0.5 mg PO BEDTIME buspirone 15 mg tablet 15 mg PO 3XW docusate sodium 100 mg capsule 200 mg PO BEDTIME Qty: 180 3RF cholecalciferol (vitamin D3) 50 mcg (2,000 unit) capsule 50 mcg PO DAILY Qty: 30 3RF Print Language: [place]an
--- NOTE | 2023-12-13 05:24 | PC.NURSE ---
dr. landon at bedside preforming a pelvic exam. multiple large clots removed at this time. pt tolerated well. 20G placed right forearm. pt to ultrasound at this time.
[2023-12-13 05:25] VITALS: BP 124/82
[2023-12-13] MEDS: ondansetron HCL 4 MG/2 ML VIAL IVPUSH (05:41)
[2023-12-13] MEDS: 0.9 % Sodium Chloride 1,000 ML 999 ML IVCONT (05:42)
--- NOTE | 2023-12-13 05:55 | PC.NURSE ---
pt medicated per mar for nausea, pt reports not wanting morphine at this time due to the way it makes her feel. fluid bolus administered.
[2023-12-13 06:09] LABS: Hematocrit 28.1 % (37.0-47.0); Hemoglobin 9.8 g/dl (12.0-16.0); Mean Corpuscular HGB Conc 34.9 g/dl (31.0-35.0); Mean Corpuscular Hemoglobin 28.6 pg (27.0-33.0); Mean Corpuscular Volume 81.9 fL (80.0-98.0); Mean Platelet Volume 10.4 fL (9.4-12.3); Platelet Count 247 X10*3/uL (160-400); Red Blood Count 3.43 X10*6/uL (4.20-5.50); Red Cell Distribution Width 13.8 % (11.0-16.0)
[2023-12-13 06:19] VITALS: BP 123/57; PULSE 62; RESP 16; TEMP 37.1; O2SAT 100
--- NOTE | 2023-12-13 06:20 | PC.NURSE ---
pt ambulatory at this time, denies pain with ambulation, denies dizziness and chest pain.
[2023-12-13 07:23] VITALS: BP 115/61; PULSE 71; RESP 18; TEMP 36.9; O2SAT 99
--- NOTE | 2023-12-13 07:23 | PC.NURSE ---
pt is alert and oriented, skin appropriate for ethnicity but slightly pale, respirations even and unlabored, bowel sounds in all 4 quadrants, abd soft but tender on the lower part, pt states that this is her 9th but 6 live children, vs stable
--- NOTE | 2023-12-13 08:17 | PC.NURSE ---
report given to Beth Choudhury at [facility] [place]
[2023-12-13 08:45] VITALS: BP 115/61; PULSE 71; RESP 18; TEMP 36.9; O2SAT 99
== END 2023-12-13 08:45 | disposition short-term general hospital (02) ==
PROVIDERS: Emergency Provider Emergency Medicine; PCP Registered Nurse
DX: O02.1 Missed abortion (principal); Z79.899 Other long term (current) drug therapy
CPT/HCPCS: 36415; 76801; 76817; 80053; 81001; 84702; 85025; 85027; 85610; 86850; 86900; 86901; 96361; 96374; 99285; J2405

== ENCOUNTER 2024-01-24 11:05 | Outpatient (REF) | payer MEDICAID, SELFPAY ==
[2024-01-24 14:16] LABS: MANUAL DIFF FLAG NO
[2024-01-24 14:25] LABS: Basophils Percent Auto 0.8 % (0-2); Eosinophils Absolute Auto 0.1 X10*3/uL (0.0-0.4); Eosinophils Percent Auto 1.9 % (0-4); Hematocrit 33.7 % (37.0-47.0); Hemoglobin 10.7 g/dl (12.0-16.0); Imm Gran Abs Auto 0.01 X10*3/uL (0.00-0.03); Imm Gran Pct Auto 0.2 % (0.0-0.4); Lymphocytes Absolute Auto 1.7 X10*3/uL (1.2-4.9); Lymphocytes Percent Auto 34.8 % (20-40); Mean Corpuscular HGB Conc 31.8 g/dl (31.0-35.0); Mean Corpuscular Hemoglobin 25.2 pg (27.0-33.0); Mean Corpuscular Volume 79.5 fL (80.0-98.0); Mean Platelet Volume 10.2 fL (9.4-12.3); Monocytes Absolute Auto 0.3 X10*3/uL (0.1-1.2); Monocytes Percent Auto 6.7 % (2-11); Neutrophils Absolute Auto 2.7 x10*3/uL (2.0-8.3); Neutrophils Percent Auto 55.6 % (45-73); Platelet Count 422 X10*3/uL (160-400); Red Blood Count 4.24 X10*6/uL (4.20-5.50); Red Cell Distribution Width 13.7 % (11.0-16.0); White Blood Count 4.8 X10*3/uL (4.8-10.8)
[2024-01-24 14:40] LABS: Estimated Average Glucose 97 mg/dL
[2024-01-24 15:04] LABS: Alanine Aminotransferase 22 U/L (0-31); Alkaline Phosphatase 67 U/L (39-117); Anion Gap 11 (12-20); Aspartate Amino Transferase 19 U/L (5-31); Bilirubin Total 0.3 mg/dL (0.0-1.0); Blood Urea Nitrogen 7 mg/dL (9-16); Calcium 9.4 mg/dL (8.4-10.2); Carbon Dioxide 22 mmol/L (22-29); Chloride 109 mmol/L (96-108); Cholesterol 229 mg/dL (<200); Estimated Glomerular Filt Rate > 60; Glucose Random 86 mg/dL (60-115); HDL Cholesterol 50 mg/dL (>40); LDL Cholesterol Calculated 141 mg/dL (<100); Sodium 138 mmol/L (135-145); Total Protein 6.9 g/dL (6.5-8.0); Triglycerides 192 mg/dL (<150)
[2024-01-24 15:06] LABS: Vitamin B12 239 pg/mL (200-900)
[2024-01-24 15:23] LABS: TSH reflex Free T4 1.59 uIU/mL (0.32-4.0)
[2024-01-25 03:55] LABS: HBS Num1 97.58 mIU/mL (0-7.99); HBc Num1 0.13 S/CO (0.00-0.79); HBsAGNum1 0.45 S/CO (0.00-0.99); HIV AB/AG Nonreactive (Nonreactive); HIV Num 1 0.05 S/CO (0.00-0.99); Hepatitis B Core Antibody Nonreactive (Nonreactive); Hepatitis B Surface Antigen Negative (Negative); ~Hepatitis B Surface Antibody REACTIVE (Nonreactive)
[2024-01-25 14:28] LABS: RPR Rapid Plasma Reagin NON-REACTIVE (NON-REACTIVE)
[2024-01-25 15:43] LABS: HCV Log PCR <1.18 NOT DETECTED Log IU/mL (NOT DETECTED); HepC Viral Load <15 NOT DETECTED IU/mL (NOT DETECTED)
== END 2024-01-24 11:06 | disposition home or self-care (01) ==
LOC: HO.CHCLDS 11:05
PROVIDERS: Visit Provider Registered Nurse
DX: Z00.00 Encounter for general adult medical examination without abnormal findings (principal); E53.8 Deficiency of other specified B group vitamins
CPT/HCPCS: 36415; 80053; 80061; 82607; 83036; 84443; 85025; 86592; 86704; 86706; 87340; 87389; 87522

== ENCOUNTER 2024-03-18 09:53 | Outpatient (REF) | payer MEDICAID, SELFPAY ==
[2024-03-18 14:04] LABS: MANUAL DIFF FLAG NO
[2024-03-18 14:17] LABS: Basophils Absolute Auto 0.1 X10*3/uL (0.0-0.2); Basophils Percent Auto 0.9 % (0-2); Eosinophils Absolute Auto 0.1 X10*3/uL (0.0-0.4); Eosinophils Percent Auto 2.2 % (0-4); Hematocrit 34.7 % (37.0-47.0); Hemoglobin 10.5 g/dl (12.0-16.0); Imm Gran Abs Auto 0.03 X10*3/uL (0.00-0.03); Imm Gran Pct Auto 0.5 % (0.0-0.4); Lymphocytes Absolute Auto 2.1 X10*3/uL (1.2-4.9); Lymphocytes Percent Auto 37.7 % (20-40); Mean Corpuscular HGB Conc 30.3 g/dl (31.0-35.0); Mean Corpuscular Hemoglobin 22.7 pg (27.0-33.0); Mean Corpuscular Volume 75.1 fL (80.0-98.0); Mean Platelet Volume 10.5 fL (9.4-12.3); Monocytes Absolute Auto 0.4 X10*3/uL (0.1-1.2); Monocytes Percent Auto 6.7 % (2-11); Neutrophils Absolute Auto 2.9 x10*3/uL (2.0-8.3); Platelet Count 358 X10*3/uL (160-400); Red Blood Count 4.62 X10*6/uL (4.20-5.50); Red Cell Distribution Width 15.4 % (11.0-16.0); White Blood Count 5.5 X10*3/uL (4.8-10.8)
== END 2024-03-18 09:54 | disposition home or self-care (01) ==
LOC: HO.CHCLDS 09:53
PROVIDERS: Visit Provider Registered Nurse
DX: D64.9 Anemia, unspecified (principal)
CPT/HCPCS: 36415; 85025

== ENCOUNTER 2024-03-27 13:50 | Outpatient (REF) | payer MEDICAID, SELFPAY ==
[2024-03-27 14:31] LABS: MANUAL DIFF FLAG NO
[2024-03-27 14:38] LABS: Basophils Absolute Auto 0.1 X10*3/uL (0.0-0.2); Eosinophils Absolute Auto 0.2 X10*3/uL (0.0-0.4); Eosinophils Percent Auto 2.7 % (0-4); Hematocrit 34.1 % (37.0-47.0); Hemoglobin 10.5 g/dl (12.0-16.0); Imm Gran Abs Auto 0.01 X10*3/uL (0.00-0.03); Imm Gran Pct Auto 0.2 % (0.0-0.4); Immature Retic Fraction 18.4 % (3.0-15.9); Lymphocytes Absolute Auto 2.2 X10*3/uL (1.2-4.9); Lymphocytes Percent Auto 36.8 % (20-40); Mean Corpuscular HGB Conc 30.8 g/dl (31.0-35.0); Mean Corpuscular Volume 74.8 fL (80.0-98.0); Mean Platelet Volume 10.4 fL (9.4-12.3); Monocytes Absolute Auto 0.4 X10*3/uL (0.1-1.2); Monocytes Percent Auto 5.9 % (2-11); Neutrophils Absolute Auto 3.1 x10*3/uL (2.0-8.3); Neutrophils Percent Auto 53.4 % (45-73); Platelet Count 412 X10*3/uL (160-400); Red Blood Count 4.56 X10*6/uL (4.20-5.50); Red Cell Distribution Width 15.9 % (11.0-16.0); Retic HGB Equivalent 25.3 pg (30.0-35.0); Reticulocyte Percent 0.9 % (0.5-1.8); Reticulocytes Absolute 0.042 X10*6/uL (0.026-0.095); White Blood Count 5.9 X10*3/uL (4.8-10.8)
[2024-03-27 15:41] LABS: Iron 27 mcg/dL (30-160); Percent Iron Saturation 7 % (15-50); Total Iron Binding Capacity 391 mcg/dL (228-428); Unsaturated Iron Binding 364 ug/dL
[2024-03-27 15:47] LABS: Ferritin 10 ng/mL (10-122); Vitamin D 25-OH Total 26.5 ng/mL (>30)
[2024-03-27 15:59] LABS: Vitamin B12 216 pg/mL (200-900)
[2024-04-01 09:13] LABS: Methylmalonic Acid 272 nmol/L (55-335)
== END 2024-03-27 13:51 | disposition home or self-care (01) ==
LOC: HO.CHCLDS 13:50
PROVIDERS: Visit Provider Registered Nurse
DX: D50.9 Iron deficiency anemia, unspecified (principal)
CPT/HCPCS: 36415; 82306; 82607; 82728; 83540; 83921; 85025; 85045

== ENCOUNTER 2024-04-17 22:48 | Emergency (ER) | payer MEDICAID, SELFPAY ==
[2024-04-17 22:59] VITALS: BP 143/96; BP 148/100; PULSE 77; PULSE 78; RESP 16; TEMP 36.3; O2SAT 100; O2SAT 99; BMI 30.8
== END 2024-04-18 01:31 | disposition left against medical advice (07) ==
PROVIDERS: Emergency Provider Emergency Medicine
DX: M54.2 Cervicalgia (principal); M25.512 Pain in left shoulder
CPT/HCPCS: 99281

== ENCOUNTER 2024-04-21 11:21 | Outpatient (REF) | payer MEDICAID, SELFPAY ==
[2024-04-22 08:53] LABS: Rubella IgG Antibody 1.23 Index
[2024-04-24 05:09] LABS: TS Negative Control Passed; TS Panel A 0; TS Panel B 1; TS Positive Control Passed; TSpotTB Negative (Negative)
== END 2024-04-21 11:22 | disposition home or self-care (01) ==
LOC: HO.CHCLDS 11:21
PROVIDERS: Visit Provider Registered Nurse
DX: T88.1XXA Other complications following immunization, not elsewhere classified, initial encounter (principal); Z11.1 Encounter for screening for respiratory tuberculosis
CPT/HCPCS: 36415; 86481; 86735; 86762; 86765; 86787

== ENCOUNTER 2024-06-16 14:55 | Outpatient (AMB) | payer MEDICAID, SELFPAY ==
[2024-06-16 14:56] VITALS: BP 124/70; PULSE 88; O2SAT 100; BMI 31.0
--- NOTE | 2024-06-16 14:56 | MHC.OFFVIS ---
Vital Signs 06/16/24 14:56 Height 5 ft 3 in Weight 175 lb 0.752 oz BMI 31.0 BP 124/70 Blood Pressure Location Rt brachial Position Sitting Pulse 88 Pulse Source Pulse Oximeter Pulse Oximetry (%) 100 Oxygen Delivery Method Room Air Intake Visit Reasons: Abdominal pain Intake Note: ESTABLISHED PATIENT Reason; 1 YR FUV. Changes/concerns? Pt reports concerns regarding general intake. Pt states with any consumption she feels very lethargic and experiences malaise. Allergies ibuprofen Allergy (Mild, Verified 06/16/24 14:58) Gastrointestinal Upset Iodinated Contrast Media Allergy (Verified 06/16/24 14:58) Swelling HPI HPI Abdominal pain: Details: LAST VISIT: GERD (gastroesophageal reflux disease) Abdominal pain IBS (irritable bowel syndrome) Constipation Plan Slow transit constipation, however currently patient has been on oxycodone and constipation related most likely to that and the fact that she is not getting around as much, only few days postop. Patient can take Colace 2 capsules in addition to senna. Low vitamin-D will be replaced. Patient was encouraged to increase fluid intake and activity to promote better bowel motility. Continue taking lansoprazole. Patient was encouraged to get H pylori testing done when able. I will see patient in 3 months, sooner on as needed basis. Patient is agreeable to this plan and verbalizes understanding of instructions. She was given the opportunity to ask questions and all questions answered. ? Thank you for allowing me to participate in her care Medications New cholecalciferol (vitamin D3) 50 mcg PO DAILY 30 caps 3RF R79.89 docusate sodium 200 mg (2 x 100 mg) PO BEDTIME 180 caps 3RF K59.00 Changed Changed From sennosides (senna) 2 tabs PO BEDTIME Changed To sennosides (senna) 17.2 mg (2 x 8.6 mg) PO BEDTIME 60 tabs 2RF TODAY'S VISIT Patient is here today for follow-up. Patient reports feeling tired after she eats. Patient denies dyspepsia, dysphagia or odynophagia. Denies melena, hematochezia, unintentional weight loss or ribbon like stools. Patient reports constipation. Currently she is not taking anything to help her move her bowels. Patient's diet is consists of mostly [place] food. Patient denies any other GI concerning symptoms. Patient is taking lansoprazole and reports that her symptoms of acid reflux are suppressed. Patient admits to eating late at night occasionally. [facility] Medical History Palpitations COVID Migraine Panic attack Anxiety Asthma Surgical History H/O umbilical hernia repair (07/23/23) H/O dilation and curettage Family History Maternal Grandfather Skin cancer Paternal Grandmother Colon cancer Social History Household Members: Children Housing: Apartment Do you presently have visiting nurse or other home services: No Alcohol intake: never Comment: counts correct Patient Tobacco Use Status: Former Tobacco user Tobacco use type: Cigarette Years Smoked: 15 Review of Systems Const Denies weight gain and Denies weight loss ENT Reports no additional complaints, Denies dysphagia and Denies odynophagia Card Reports no additional complaints Resp Reports no additional complaints GI Denies abdominal pain, Denies belching, Denies melena, Denies bloating, Denies change in bowel habits, Reports constipation, Denies dysphagia, Denies excessive flatus, Denies dyspepsia, Denies heartburn, Denies diarrhea, Denies loose stools, Denies nausea, Denies odynophagia and Denies vomiting Reports no additional complaints Musc Reports no additional complaints Neuro Reports no additional complaints Psych Reports no additional complaints Endo Reports no additional complaints Physical Exam Vital Signs: Last Vital Signs Pulse 88 06/16/24 14:56 BP 124/70 06/16/24 14:56 Pulse Ox 100 06/16/24 14:56 Oxygen Delivery Method Room Air 06/16/24 14:56 BMI result Body Mass Index 31.0 Const General: healthy appearing, no acute distress and well developed Nutritional Appearance: well nourished and obese Orientation/consciousness: patient oriented x3 Resp Effort & Inspection: normal respiratory effort, able to speak in complete sentences, no tracheal deviation and symmetric chest movement Auscultation: clear to auscultation bilaterally Cardio Rate: regular rate GI Inspection: Yes normal to inspection, No distended and Yes other (Surgical scar umbilicus) Palpation (GI): Soft to palpation, not firm, nontender and No hepatosplenomegaly present Auscultation: normal bowel sounds General: Yes no CVA tenderness Back/Spine/Pelvis Back: no CVA tenderness Skin General skin exam: elasticity normal, turgor normal and dry skin Neuro General: patient oriented x3 Psych Appearance: grossly normal Mental Status: mental status grossly normal Assessment & Plan Assessment & Plan (1) GERD (gastroesophageal reflux disease): Code(s): K21.9 - Gastro-esophageal reflux disease without esophagitis Qualifiers: Esophagitis presence: esophagitis presence not specified Qualified Code(s): K21.9 - Gastro-esophageal reflux disease without esophagitis (2) Abdominal pain: Code(s): R10.9 - Unspecified abdominal pain Qualifiers: Abdominal location: generalized Qualified Code(s): R10.84 - Generalized abdominal pain (3) IBS (irritable bowel syndrome): Code(s): K58.9 - Irritable bowel syndrome, unspecified Qualifiers: Irritable bowel syndrome type: without diarrhea Qualified Code(s): K58.9 - Irritable bowel syndrome, unspecified (4) Constipation: Code(s): K59.00 - Constipation, unspecified Qualifiers: Constipation type: slow transit constipation Qualified Code(s): K59.01 - Slow transit constipation Plan Patient will start taking Dulcolax. Increase fluid intake and activity to promote better bowel motility. Continue lansoprazole daily. Avoid dietary triggers and late night snacking. Staying upright for minimum 3 hours after meals discussed with patient. Patient had history of H pylori she has been on PPI for quite some time. She will return in 10 weeks to discuss going for upper endoscopy. Message sent to surgical schedulers to book procedure for patient. Patient is agreeable to this plan and verbalizes understanding of instructions. She was given the opportunity to ask questions and all questions answered. Thank you for allowing me to participate in her care Medications: New bisacodyl (Dulcolax (bisacodyl)) 10 mg (2 x 5 mg) PO BEDTIME 180 tabs 4RF Refilled lansoprazole 30 mg PO DAILY 90 caps 3RF K21.9 - Gastro-esophageal reflux disease without esophagitis Discontinued sennosides Discontinued Reason: Doctor's Order 17.2 mg (2 x 8.6 mg) PO BEDTIME 60 tabs 2RF Coding Level of Care Code Est Pt Level 3 (82711) Diagnoses Gastroesophageal reflux disease, unspecified whether esophagitis present K21.9 Esophagitis presence: esophagitis presence not specified Generalized abdominal pain R10.84 Abdominal location: generalized Irritable bowel syndrome without diarrhea K58.9 Irritable bowel syndrome type: without diarrhea Slow transit constipation K59.01 Constipation type: slow transit constipation Time Spent (min) 25 Comment 15 minutes spent with patient and additional 10 minutes spent reviewing her records
== END 2024-06-16 15:24 | disposition home or self-care (01) ==
PROVIDERS: PCP Registered Nurse; Visit Provider Nurse Practitioner Family
DX: K21.9 Gastro-esophageal reflux disease without esophagitis (principal); R10.84 Generalized abdominal pain; K58.9 Irritable bowel syndrome, unspecified; K59.01 Slow transit constipation
CPT/HCPCS: 99213

== ENCOUNTER → 2024-06-16 14:55 | Outpatient (BNVA) | payer MEDICAID, SELFPAY | PROVIDERS: PCP Registered Nurse; Visit Provider Nurse Practitioner Family | DX: K59.01 Slow transit constipation (principal); K58.9 Irritable bowel syndrome, unspecified; K21.9 Gastro-esophageal reflux disease without esophagitis; R10.84 Generalized abdominal pain | CPT/HCPCS: 99212 ==

== ENCOUNTER → 2024-06-26 09:56 | Outpatient (BNV) | payer MEDICAID, SELFPAY | PROVIDERS: PCP Registered Nurse; Referring Provider Advanced Practice Midwife; Visit Provider Internal Medicine | DX: D50.0 Iron deficiency anemia secondary to blood loss (chronic) (principal); D51.9 Vitamin B12 deficiency anemia, unspecified | CPT/HCPCS: 99204 ==

== ENCOUNTER 2024-09-03 11:22 | Outpatient (AMB) | payer MEDICAID, SELFPAY ==
--- NOTE | 2024-09-03 11:25 | A.OFFVIS_ITS ---
Vital Signs 09/03/24 11:35 Height 5 ft 3 in Weight 177 lb 4.026 oz BMI 31.4 BP 126/86 Blood Pressure Location Rt brachial Position Sitting Pulse 72 Pulse Source Pulse Oximeter Pulse Oximetry (%) 100 Oxygen Delivery Method Room Air Intake Visit Reasons: FUV, discuss EGD. Intake Note: ESTABLISHED PATIENT for mgmt of chronic abd pain. Changes/concerns? C/O GERD, epigastric pain, w/o dysphagia. Pt reports still taking lansoprazole but not having relief. No additional concerns at this time. Sane Rn Required: No Accompanied by: Self / Same As Patient Allergies ibuprofen Allergy (Mild, Verified 09/03/24 11:28) Gastrointestinal Upset Iodinated Contrast Media Allergy (Verified 09/03/24 11:28) Swelling shellfish derived Allergy (Verified 09/12/24 14:23) Unknown HPI HPI FUV, discuss EGD.: Details: LAST VISIT: GERD (gastroesophageal reflux disease) Abdominal pain IBS (irritable bowel syndrome) Constipation Plan Patient will start taking Dulcolax. Increase fluid intake and activity to promote better bowel motility. Continue lansoprazole daily. Avoid dietary triggers and late night snacking. Staying upright for minimum 3 hours after meals discussed with patient. Patient had history of H pylori she has been on PPI for quite some time. She will return in 10 weeks to discuss going for upper endoscopy. Message sent to surgical schedulers to book procedure for patient. Patient is agreeable to this plan and verbalizes understanding of instructions. She was given the opportunity to ask questions and all questions answered. ? Thank you for allowing me to participate in her care Medications New bisacodyl (Dulcolax (bisacodyl)) 10 mg (2 x 5 mg) PO BEDTIME 180 tabs 4RF Refilled lansoprazole 30 mg PO DAILY 90 caps 3RF K21.9 Discontinued sennosides Discontinued Reason: Doctor's Order 17.2 mg (2 x 8.6 mg) PO BEDTIME 60 tabs 2RF TODAY'S VISIT: Patient is here today for follow-up and to discuss going for upper endoscopy. Procedure is scheduled and patient has a follow-up appointment after the procedure with os. She continues to have acid reflux. History of H pylori in the past and treated. Currently on lansoprazole. Patient will hold lansoprazole and we will test her for H pylori. Patient denies dyspepsia, dysphagia or odynophagia. Denies melena, hematochezia, unintentional weight loss or ribbon like stools. Patient has a history of AFib and has appointment with tar pot man and will ask for clearance. [facility] Medical History (Updated 09/12/24 @ 14:13 by Cassie Loomis RN) History of cardioversion GERD (gastroesophageal reflux disease) Obesity Depression PAF (paroxysmal atrial fibrillation) Palpitations COVID Migraine Panic attack Anxiety Asthma Surgical History (Updated 09/12/24 @ 14:11 by Cassie Loomis RN) History of esophagogastroduodenoscopy (EGD) H/O umbilical hernia repair (07/23/23) H/O dilation and curettage Family History Maternal Grandfather Skin cancer Paternal Grandmother Colon cancer Social History Household Members: Children Housing: Apartment Do you presently have visiting nurse or other home services: No Alcohol intake: never Comment: counts correct Patient Tobacco Use Status: Former Tobacco user Tobacco use type: Cigarette Years Smoked: 15 service: No Current occupational status: unemployed Gender identity: Female Review of Systems Const Denies weight gain and Denies weight loss ENT Reports no additional complaints, Denies dysphagia and Denies odynophagia Card Reports no additional complaints Resp Reports no additional complaints GI Denies abdominal pain, Denies belching, Denies melena, Denies bloating, Denies change in bowel habits, Denies dysphagia, Denies excessive flatus, Denies dysp epsia, Denies heartburn, Denies diarrhea, Denies loose stools, Denies nausea, Denies odynophagia and Denies vomiting Musc Reports no additional complaints Neuro Reports no additional complaints Psych Reports no additional complaints Endo Reports no additional complaints Physical Exam Vital Signs: Last Vital Signs Pulse 72 09/03/24 11:35 BP 126/86 03/26/25 11:35 Pulse Ox 100 09/03/24 11:35 Oxygen Delivery Method Room Air 09/03/24 11:35 BMI result Body Mass Index 31.4 Const General: healthy appearing, no acute distress and well developed Nutritional Appearance: well nourished and obese Orientation/consciousness: patient oriented x3 Resp Effort & Inspection: normal respiratory effort, able to speak in complete sente nces, no tracheal deviation and symmetric chest movement Auscultation: clear to auscultation bilaterally Cardio Rate: regular rate GI Inspection: Yes normal to inspection, No distended and Yes other (Surgical scar umbilicus) Palpation (GI): Soft to palpation, not firm, nontender and No hepatosplenomegaly present Auscultation: normal bowel sounds General: Yes no CVA tenderness Back/Spine/Pelvis Back: no CVA tenderness Skin General skin exam: elasticity normal, turgor normal and dry skin Neuro General: patient oriented x3 Psych Appearance: grossly normal Mental Status: mental status grossly normal Assessment & Plan Assessment & Plan (1) GERD (gastroesophageal reflux disease): Code(s): K21.9 - Gastro-esophageal reflux disease without esophagitis Qualifiers: Esophagitis presence: esophagitis presence not specified Qualified Code(s): K21.9 - Gastro-esophageal reflux disease without esophagitis (2) Abdominal pain: Code(s): R10.9 - Unspecified abdominal pain Qualifiers: Abdominal location: epigastric Qualified Code(s): R10.13 - Epigastric pain (3) IBS (irritable bowel syndrome): Code(s): K58.9 - Irritable bowel syndrome, unspecified Qualifiers: Irritable bowel syndrome type: with constipation Qualified Code(s): K58.1 - Irritable bowel syndrome with constipation (4) Constipation: Code(s): K59.00 - Constipation, unspecified Qualifiers: Constipation type: slow transit constipation Qualified Code(s): K59.01 - Slow transit constipation (5) Nausea: Code(s): R11.0 - Nausea (6) Postprandial epigastric pain: Code(s): R10.13 - Epigastric pain Plan Patient will take famotidine twice a day and will return for H pylori testing with the nurse. Upper endoscopy is scheduled for September 16. Awaiting for notes from tar pot man for clearance and risk stratification before procedure. Patient denies any issues with anesthesia in the past. If positive for H pylori will treat empirically. I will see patient after the procedure, sooner on as needed basis. She is agreeable to this plan and verbalizes understanding of instructions. She was given the opportunity to ask questions and all questions answered. Thank you for allowing me to participate in her care Orders: Orders H Pylori Breath Test 09/03/24 K21.9 - Gastro-esophageal reflux disease without esophagitis Coding Level of Care Code Est Pt Level 4 (93877) Complex EM visit Add On G2211 Diagnoses Gastroesophageal reflux disease, unspecified whether esophagitis present K21.9 Esophagitis presence: esophagitis presence not specified Epigastric pain R10.13 Abdominal location: epigastric Irritable bowel syndrome with constipation K58.1 Irritable bowel syndrome type: with constipation Slow transit constipation K59.01 Constipation type: slow transit constipation Nausea R11.0 Postprandial epigastric pain R10.13 Time Spent (min) 35 Comment 25 minutes spent with patient and additional 10 minutes spent reviewing her records
[2024-09-03 11:35] VITALS: BP 126/86; PULSE 72; O2SAT 100; BMI 31.4
== END 2024-09-03 11:57 | disposition home or self-care (01) ==
LOC: HO.HGI 11:23
PROVIDERS: PCP Registered Nurse; Visit Provider Nurse Practitioner Family
DX: K21.9 Gastro-esophageal reflux disease without esophagitis (principal); R10.13 Epigastric pain; K58.1 Irritable bowel syndrome with constipation; K59.01 Slow transit constipation; R11.0 Nausea
CPT/HCPCS: 99214

== ENCOUNTER → 2024-09-03 11:22 | Outpatient (BNVA) | payer MEDICAID, SELFPAY | PROVIDERS: PCP Registered Nurse; Visit Provider Nurse Practitioner Family | DX: K21.9 Gastro-esophageal reflux disease without esophagitis (principal); K58.1 Irritable bowel syndrome with constipation; R10.13 Epigastric pain; K59.01 Slow transit constipation; R11.0 Nausea | CPT/HCPCS: 99212 ==

== ENCOUNTER 2024-09-12 17:38 | Outpatient (REF) | payer MEDICAID, SELFPAY ==
--- OUTSIDE RECORDS SUMMARY | 2024-09-12 17:40 | XMS_ITS | Encounter Summary ---
Author Organization [employer] Address [address] [facility] 7t [place] [address] Care Team Providers Care Registered Safety Engineer Name Role Phone Demetria Chaparro Primary Care Provider [phone] Reason for Visit * Reason Onset Date Comments Results 03/28/2024 Encounter Details Date Type Department Care Team ([facility] st Contact Info) Description 03/28/2024 Telephone [facility] MEDICINE [address] [place] [address] Demetria Chaparro FNP [address] [place] [address] Results Social History Tobacco Use Types Packs/Day [...] results: Lab Date when done: 03/27/24 Facility: [facility] Contact pt at [phone] documented in this encounter Plan of Treatment Upcoming Encounters Date Type Department Care Team (Late st Contact Info) Description 11/12/2024 11:15 AM EDT Office Visit [facility] MEDICINE [address] [place] [address] Demetria Chaparro FNP [address] [place] [address] documented as of this encounter Visit Diagnoses Not on filedocumented in this encounter Additional Health Concerns Assessment Noted Time PHQ-9 Depression Total Score: 9 01/21/20 24 10:18 AM EDT documented as of this encounter Care Teams Registered Safety Engineer Relationship Specialty Start Date End Date Demetria Chaparro FNP [address] [place] [address] PCP - General Family Medicine 02/06/22 documented as of this encounter
--- OUTSIDE RECORDS SUMMARY | 2024-09-12 17:40 | XMS_ITS | Clinical Summary ---
Author Organization [facility] Address [address] [place] [phone] Phone Care Team Providers Care Boat Garnisher Name Role Phone Physician, No Pcp Primary Care Provider Unavaila ble Allergies Active Allergy Reactions Criticality Noted Date Comments Ibuprofen High 06/27/2022 Abdominal pain; difficulty breathing Iodinated Contrast Media Swelling 10/26/2022 Medications No known medications Surgical History Surgery Date Site/Laterality Comments UMBILICAL [...] Procedure Name Priority Date/Time Associated Diagnosis Comments PAP SMEAR Routine 12/05/2018 from Last 3 Months or Most Recently Relevant to Health Maintenance Results * Pap smear (12/05/2018) 12/05/2018 Narrative HISTORICAL TESTING LAB RESULTING AGENCY - 12/13/2018 2:35 PM EDT [id number] THINPREP PAP, IMAGED: NEGATIVE FOR SQUAMOUS INTRAEPITHELIAL LESION AND MALIGNANCY . REACTIVE CELLULAR CHANGES. MELANY BATEMAN(ASCP) (CASE SCREENED 12 11 2018) JATIN GANN [...] Maintenance Insurance MEDICAID - [place] Care Teams Boat Garnisher Relationship Specialty Start Date End Date Physician, No Pcp PCP - General 04/18/24
--- OUTSIDE RECORDS SUMMARY | 2024-09-12 17:40 | XMS_ITS | Encounter Summary ---
Author Organization [employer] Address [address] [facility] 7t [place] [address] Care Team Providers Care Autocad Name Role Phone Demetria Chaparro SANDRA Primary Care Provider [phone] Encounter Details Date Type Department Care Team ([facility] st Contact Info) Description 10/12/2023 Orders Only [facility] MED & PEDS [address] [place] [address] Trey Garcia MD [address] [place] [address] Acute cystitis with hematuria (Primary Dx) Social [...] Description 11/12/2024 11:15 AM EDT Office Visit [facility] MEDICINE [address] [place] [address] Demetria Chaparro FNP [address] [place] [address] documented as of this encounter Visit Diagnoses Diagnosis Acute cystitis with hematuria- Primary documented in this encounter Additional Health Concerns Assessment Noted Time PHQ-9 Depression Total Score: 0 10/03/19 23 9:54 AM EDT documented as of this encounter Care Teams Autocad Relationship Specialty Start Date End Date Demetria Chaparro FNP [address] [place] [address] PCP - General Family Medicine 02/06/22 documented as of this encounter
--- OUTSIDE RECORDS SUMMARY | 2024-09-12 17:40 | XMS_ITS | Clinical Summary ---
Demographics Address [address] [place] [address] Home Phone Preferred Language Liberian Marital Status Methodist Affiliation Unknown Race Unknown Ethnic Group or Author Organization [facility] Address [address] [place] [address] Care Team Providers Care Accountant Controller Name Role Phone Unavailable Primary Care Provider [...] Self [address] [place] [address]
--- OUTSIDE RECORDS SUMMARY | 2024-09-12 17:41 | XMS_ITS | Encounter Summary ---
Author Organization [employer] Address [address] [facility] [address]t [place] [address] Care Team Providers Care Plaster Block Layer Name Role Phone Demetria Chaparro SANDRA Primary Care Provider [phone] Encounter Details Date Type Department Care Team (Latest Contact Info) Description 09/12/2024 Travel Social History Tobacco Use Types Packs/Day Years [...] Description 11/12/2024 11:15 AM EDT Office Visit [facility] MEDICINE [address] [place] [address] Demetria Chaparro FNP [address] [place] [address] documented as of this encounter Visit Diagnoses Not on filedocumented in this encounter Additional Health Concerns Assessment Noted Time PHQ-9 Depression Total Score: 11 024 11:19 AM EST documented as of this encounter Care Teams Plaster Block Layer Relationship Specialty Start Date End Date Demetria Chaparro FNP [address] [place] [address] PCP - General Family Medicine 02/06/22 documented as of this encounter
--- OUTSIDE RECORDS SUMMARY | 2024-09-12 17:41 | XMS_ITS | Encounter Summary ---
Author Organization [employer] Address [address] [facility] [address]t [place] [address] Care Team Providers Care Die Drawing Checker Name Role Phone Demetria Chaparro Primary Care Provider [phone] Reason for Visit * Reason Onset Date Comments nurse triage 09/12/2024 Encounter Details Date Type Department Care Team ([facility] st Contact Info) Description 09/12/2024 Telephone [facility] MEDICINE [address] [place] [address] Demetria Chaparro FNP [address] [place] [address] nurse triage Social History Tobacco Use Types Packs/Day Years [...] encounter Miscellaneous Notes * Telephone Encounter - Lilly Ochoa LPN - 09/12/2024 11:42 AM EDT Aleksandrage call returned to patient who reports she was not able to come in as per last triage due to migraine and menses. Continues with vaginal discharge clear per report but some vaginal itching as well. Has painful burning with urination no blood or pus in urine but has noted low back pain. Disposition reviewed and patient in agreement with plan. Ask/PCP Ken PROPERTY MAN today at 330pm. Reviewed with patient home care recommendations and reasons to call back. Pt verbalized understanding and agrees. Protocol Used: Urination Pain - Female (Adult) Protocol-Based Disposition: Go to Office or Video Visit Now Video visit offer not recorded Positive Triage Questions: * Severe pain with urination * Side (flank) or lower back pain present * Unusual vaginal discharge * All higher-acuity triage questions were negative Care Advice Discussed: * Drink Extra Fluids * Cranberry Juice * Reasons To Call Back - You become worse * Telephone Encounter - Jean Bhat - 09/12/2024 11:34 AM EDT Symptom: Urination Pain Outcome: Schedule an urgent appointment (within 1 hour) or talk to a nurse or provider soon Reason: Severe pain now The caller accepted this outcome. documented in this encounter Plan of Treatment Upcoming Encounters Date Type Department Care Team (Late st Contact Info) Description 11/12/2024 11:15 AM EDT Office Visit [facility] MEDICINE [address] [place] [address] Demetria Chaparro FNP [address] [place] [address] documented as of this encounter Visit Diagnoses Not on filedocumented in this encounter Additional Health Concerns Assessment Noted Time PHQ-9 Depression Total Score: 11 024 11:19 AM EST documented as of this encounter Care Teams Die Drawing Checker Relationship Specialty Start Date End Date Demetria Chaparro FNP [address] [place] [address] PCP - General Family Medicine 02/06/22 documented as of this encounter
--- OUTSIDE RECORDS SUMMARY | 2024-09-12 17:41 | XMS_ITS | Encounter Summary ---
Author Organization [employer] Address [address] [facility] [address] [place] [address] Care Team Providers Care Destination Imagination Coordinator Name Role Phone Demetria Chaparro Primary Care Provider [phone] Reason for Visit * Reason Onset Date Comments ER Follow-up 11/06/2023 Encounter Details Date Type Department Care Team ([facility] Contact Info) Description 11/06/2023 Telephone [facility] [address] [place], [place] [phone] Demetria Chaparro FNP [address] [place] [address] ER Follow-up Social History Tobacco Use Types [...] 11:38 AM EDT Tc to pt using [employer] [place], [place] [id number], translator and interpreter unable to reach pt, left messagefor pt to call back. * Telephone Encounter - Shelby Perez - 11/06/2023 1:06 PM EDT Patient calling to report ED visit on : Date: 10/26/23 Hospital: [facility] Seen for: abdominal pain and migrans Patient advised will forward to team nurse for follow up Pt would like to get an US done . documented in this encounter Plan of Treatment Upcoming Encounters Date Type Department Care Team (Late st Contact Info) Description 11/12/2024 11:15 AM EDT Office Visit [facility] [address] [place] [address] Demetria Chaparro FNP [address] [place] [address] documented as of this encounter Visit Diagnoses Not on filedocumented in this encounter Additional Health Concerns Assessment Noted Time PHQ-9 Depression Total Score: 0 10/03/19 23 9:54 AM EDT documented as of this encounter Care Teams Destination Imagination Coordinator Relationship Specialty Start Date End Date Demetria Chaparro FNP [address] [place] [address] PCP - General Family Medicine 02/06/22 documented as of this encounter
--- OUTSIDE RECORDS SUMMARY | 2024-09-12 17:41 | XMS_ITS | Encounter Summary ---
Author Organization [employer] Address [address] [facility] 7t [place] [address] Care Team Providers Care Steel Fitter Name Role Phone Demetria Chaparro Primary Care Provider Encounter Details Date Type Department Care Team ([facility] st Contact Info) Description 09/12/2024 3:30 PM EDT Office Visit [facility] & PEDS [address] [place], [place] [phone] Demetria Chaparro FNP [address] [place] [address] Urinary tract infection symptoms (Primary Dx); Vaginal discharge Social History Tobacco Use Types Packs/Day Years [...] AM EDT documented as of this encounter Last Filed Vital Signs Vital Sign Reading Time Taken Comments Blood Pressure 121/71 09/12/2024 3:51 PM EDT Pulse 82 09/12/2024 3:51 PM EDT Temperature 36.6 ??C (97.9 ??F) 09/12/2024 3:51 PM ED T Respiratory Rate 20 09/12/2024 3:51 PM EDT Oxygen Saturation 100% 09/12/2024 3:51 PM EDT Inhaled Oxygen Concentration - - Weight 79.8 kg (176 lb) 09/12/2024 3:51 PM EDT Height 163.2 cm (5' 4.25 ) 09/12/2024 3:51 PM ED T Body Mass Index 29.98 09/12/2024 3:51 PM EDT documented in this encounter Plan of Treatment Upcoming Encounters Date Type Department Care Team (Late st Contact Info) Description 11/12/2024 11:15 AM EDT Office Visit [facility] [address] [place], [place] [phone] Demetria Chaparro FNP [address] [place] [address] Scheduled Orders Name Type Priority Associated Diagnoses Orde r Schedule Urinalysis, Complete, with Reflex to Culture Lab Routine Urinary tract infection symptoms Vaginal discharge Expected: 09/12/2024 (Approximate), Expires: 09/12/2025 Chlamydia/N. Gonorrhoeae RNA, TMA, Urogenitial Microbiology Routine Vaginal discharge Ordered: 09/12/2024 Bacterial Vaginosis Microbiology Routine Vaginal discharge Ordered: 09/12/2024 Hepatitis C Viral RNA, Quantitative, Real-Time PCR Lab Routine Vaginal discharge Expected: 09/12/2024 (Approximate), Expires: 09/12/2025 RPR (Monitor) with Reflex to??Titer Lab Routine Vaginal discharge Expected: 09/12/2024 (Approximate), Expires: 09/12/2025 HIV-1/2 Antigen and Antibodies, Fourth Generation, with Reflexes Lab Routine Vaginal discharge Expected: 09/12/2024 (Approximate), Expires: 09/12/2025 documented as of this encounter Procedures Procedure Name Priority Date/Time Associated Diagnosis Comments POCT URINALYSIS DIPSTICK Routine 09/12/2024 4:18 PM EDT Urinary tract infection symptoms Vaginal discharge documented in this encounter Results * (ABNORMAL) POCT Urinalysis (09/12/2024 4:18 PM EDT) Color, UA Yellow Clarity, UA Clear Glucose, UA Negative Bilirubin, UA Negative Ketones, UA Negative Spec Grav, UA 1.025 Blood, UA Positive(A) Negative, None Detected Comment:small pH, UA 6.5 Protein, UA 1+ 70+ Comment:30 mg Urobilinogen, UA 0.2 Leukocytes, UA Negative Negative, Rare, Trace Nitrite, UA Negative Negative, None Detected Appearance, UA yellow QC Media Lot # [id number] Lot# Expiration Date Urine 09/12/2024 4:18 PM EDT Demetria FLORES POINT OF CARE TEST ENTER/EDIT ORDERABLES Final Result documented in this encounter Visit Diagnoses Diagnosis Urinary tract infection symptoms- Primary Vaginal discharge Leukorrhea, not specified as infective documented in this encounter Additional Health Concerns Assessment Noted Time PHQ-9 Depression Total Score: 11 024 11:19 AM EST documented as of this encounter Care Teams Steel Fitter Relationship Specialty Start Date End Date Demetria Chaparro FNP [address] [place] [address] PCP - General Family Medicine 02/06/22 documented as of this encounter
--- OUTSIDE RECORDS SUMMARY | 2024-09-12 17:41 | XMS_ITS | Encounter Summary ---
Author Organization [employer] Address [address] [facility] 7 [place] [address] Care Team Providers Care Director Of Rotc Name Role Phone Demetria Chaparro Primary Care Provider Reason for Visit * Reason Onset Date Comments Appointment Request 08/28/2022 Encounter Details Date Type Department Care Team ([facility] st Contact Info) Description 08/28/2022 Telephone [facility] [address] [place] [address] Demetria Chaparro FNP [address] [place] [address] Appointment Request Social History Tobacco Use Types [...] - 08/28/2022 4:15 PM EDT Tc from [facility] with N requesting a physical appt for pt. Please contact pt at [phone] documented in this encounter Plan of Treatment Upcoming Encounters Date Type Department Care Team (Late st Contact Info) Description 11/12/2024 11:15 AM EDT Office Visit [facility] [address] [place] [address] Demteria Chaparro FNP [address] [place] [address] documented as of this encounter Visit Diagnoses Not on filedocumented in this encounter Additional Health Concerns Assessment Noted Time PHQ-9 Depression Total Score: 0 07/04/19 23 11:01 AM EST documented as of this encounter Care Teams Director Of Rotc Relationship Specialty Start Date End Date Demetria Chaparro FNP [address] [place] [address] PCP - General Family Medicine 02/06/22 documented as of this encounter
--- OUTSIDE RECORDS SUMMARY | 2024-09-12 17:41 | XMS_ITS | Clinical Summary ---
Author Organization [employer] Address [address] [facility] 7[address] [place] [address] Care Team Providers Care Trolley Operator Name Role Phone Demetria Chaparro SANDRA Primary Care Provider [phone] Allergies Active Allergy Reactions Criticality Noted Date [...] per day. 90 tablet 3 4 Active fluconazole (Diflucan) 150 MG tablet Take 1 tablet (150 mg) by mouth 1 (one) time for 1 dose. Repeat in 72 hours if symptoms persist. 2 tablet 5 09/13/19 Active Active Problems Problem Noted Date Diagnosed Date Chronic atrial fibrillation 06/27/2024 Overview (06/27/2024): 06/14/24: [facility] ED eval for palpitations, found to be in afib with RVR on arrival. Cardioverted and resolved. Following with [facility] - Dr. Walker Consult 06/19/24: plan for 30 day holter, repeat echo and stress test Assessment & Plan (08/14/2024 4:07 PM EST): Pending cardiology consult to review results of Holter and echo. ED precautions sooner as needed. Reviewed basic information regarding A-fib and handout provided. Mixed hyperlipidemia 01/29/2024 Overview (01/29/2024): Lab Results Component Value Date CHOL 229 (H) 01/24/2024 TRIG 192 (H) 01/24/2024 TRIG 149 10/02/2022 HDL 50 01/24/2024 LDLCHOLCAL 141 (H) 01/24/2024 -continue lifestyle modification History of Helicobacter pylori infection 024 Assessment & Plan (01/21/2024 5:16 PM EDT): Tx by [facility]STER Chang. Unable to tolerate quadruple therapy. Initiated on [...] Plan (01/21/2024 5:33 PM EDT): Followed by [facility] - Dr. Walker Continues metoprolol 25mg BID and verapamil 40mg nightly Reports well controlled while taking medications Gastritis 10/09/2023 Overview (01/21/2024): Followed by [facility] Continues on lansoprazole 30mg daily Assessment & Plan (01/21/2024 5:25 PM EDT): Plan for EGD for further eval Umbilical hernia 10/09/2023 Overview (01/21/2024): Repaired by [facility] - Dr. Woo 07/23/23 Umbilical hernia repair with mesh Migraine without aura 05/31/2023 Overview (04/21/2024): Previously following with [facility] - Dr. Navarro Continues depakote 250mg nightly and sumatriptan PRN Previous med trials: topiramate. Did not experience therapeutic effect Assessment & Plan (04/21/2024 8:53 PM EST): -Referral to [facility] Neuro sent 04/21/24 Assessment & Plan (05/31/2023 9:57 AM EST): -Referral updated 05/31/23 Cobalamin deficiency 07/04/2022 Overview (01/21/2024): Continues on cyanocobalamin 1000 mcg capsule daily Re-check vit D level Gastroesophageal reflux disease without esophagi tis 07/04/2022 Overview (08/14/2024): Continues following with [facility] OPERATOR Bernardo Cont Lansoprazole Assessment & Plan (08/14/2024 3:58 PM EST): During consult Jun 2024: plan to discuss upper EGD given duration on PPI Mild intermittent asthma 07/04/2022 Overview (01/21/2024): -Controller: [...] disorder 07/04/2022 Overview (10/15/2022): ?? Following with [facility] - weekly sessions with therapist, monthly with [...] through psych team Microcytic anemia 06/03/2019 Overview (08/14/2024): Lab Results Component Value Date HGB 10.5 (L) 03/27/2024 HGB 10.5 (L) 03/18/2024 HGB 10.7 (L) 01/24/2024 - Microcytic anemia with ovalocytes seen on peripheral smear - Continues with ferrous sulfate, Vit D, Vit B12 - Established with [facility] Jun 2024 - Dr. Sidhu. Plan: cont PO iron w/ Vit C, cont Vit D. If counts worsen or unable to tolerate oral iron, she will be prescribed parenteral iron therapy Polyp of corpus uteri Overview (07/09/2022): -Pelvic ultrasound 01/2022 done to f/u on left ovarian cyst shows resolution of cyst, possible endometrial polyp. -Pap NIL/HPV neg, GC/Chlamydia/trichomonas neg 05/2021. -Referred to MEDIA/INSTRUCTIONAL DESIGNER Jan 2022 Hyperplasia of endometrium determined by biopsy Assessment & Plan (01/21/2024 5:14 PM EDT): EMB 12/19/[address] Kayla Vaughn at [facility] Impression: secretory endometrium Assessment & Plan (10/15/2022 10:40 AM EDT): ?? EMB December 2021 through [facility] ?? Requested notes of latest MEDIA/INSTRUCTIONAL DESIGNER visit, referral for follow up if needed [...] 01/21/2024 Depression 10/09/2023 01/21/2024 Iron deficiency anemia secon savi to inadequate dietary iron intake 06/04/2019 Encounters Date Type Department Care Team Description 09/12/2024 3:30 PM EDT Office Visit [facility] & PEDS [address] [place] [address] Demetria Chaparro FNP Urinary tract infection symptoms (Primary Dx); Vaginal discharge 09/12/2024 Travel 09/12/2024 Telephone [facility] [address] [place] [address] Demetria Chaparro FNP nurse triage 09/05/2024 Telephone [facility] [address] [place], [place] [phone] Demetria Chaparro FNP Nurse Triage 09/03/2024 Population Health Risk Score [facility] ([facility] Department [address] [place] [phone] Provider, Population Health Generic 08/13/2024 11:30 AM EST Office Visit [facility] [address] [place] [address] Demetria Chaparro FNP Chronic atrial fibrillation (CMS/HCC) (Primary Dx); Possible ; Gastroesophageal reflux disease without esophagitis; Microcytic anemia 08/13/2024 Travel 08/11/2024 Telephone [facility] & PEDS [address] [place] [address] Jame Bee MA Chart Prep 07/30/2024 Telephone [facility] PEDS [address] [place] [address] Demetria Chaparro FNP February recall 06/27/2024 Telephone [facility] [address] [place] [address] Demetria Chaparro FNP No Show 06/18/2024 Telephone [facility] [address] [place] [address] Demetria Chaparro FNP 06/16/2024 Patient Outreach [facility] PEDS [address] [place] [address] Demetria Chaparro FNP Transition Of Care (Tcm) [...] Mass Index 29.98 09/12/2024 3:51 PM EDT Plan of Treatment Upcoming Encounters Date Type Department Care Team (Late st Contact Info) Description 11/12/2024 11:15 AM EDT Office Visit [facility] [address] [place], [place] [phone] Demetria Chaparro FNP [address] [place] [address] Health Maintenance Due Date Last Done Comments Dental Oral Exam 1988 Dental Prophylaxis 1988 Dental X-Ray: Bitewings 1988 Dental X-Ray: Full Mouth 1988 Family Planning (PISQ) 02/19/2003 Pneumococcal Vaccine: Pediatrics (0 to 5 Years) and At-Risk Patients (6 to 49) Years) (1 of 2 - PCV) 02/19/2007 COVID-19 Vaccine ( - season) 2024 Pap Smear 05/26/2024 05/26/2021, 05/11, 05/22/2021 Depression Monitoring (PHQ-9) 10/19/2024 04/21/2024, 04/21/2024 Alcohol/Substance Use Screening 04/21/2025 04/21/2024 Depression Screening 04/21/2025 04/21/2024, 04/21/20 SDOH Screening 04/21/2025 04/21/2024 Tobacco Screening 09/12/2025 09/12/2024 Cervical Cancer Screening 05/22/2026 HPV/Cotest 05/22/2026 05/22/2021 [...] EDT Urinary tract infection symptoms Vaginal discharge HEPATITIS C VIRAL RNA, QUANTITATIVE, REAL-TIME PCR [...] Recently Relevant to Health Maintenance Results * (ABNORMAL) POCT Urinalysis (09/12/2024 4:18 [...] Expiration Date Urine 09/12/2024 4:18 PM EDT us Demetria Chaparro WIRE WHEELER POINT OF CARE TEST ENTER/EDIT ORDERABLES Final Result * Hepatitis C Viral RNA, Quantitative, Real-Time PCR (01/24/2024 11:05 AM EDT) Pathologist [facility] Hepatitis C Viral Load <15 NOT DETECTED NOT DETECTED IU/mL [facility] HCV Log PCR <1.18 NOT DETECTED NOT DETECTED Log IU/mL [facility] Comment:For additional infor mars, please refer tohttp://education.myMedScore/faq/HWV65z7(This link is being provided for informational/educational purposes only.)THIS TEST WAS PERFORMED AT:[employer] [place] [id number] WOODS MD Blood 01/24/2024 11:0 5 AM EDT 01/24/2024 2:06 PM EDT Demetria Chaparro WIRE WHEELER LAB BLOOD ORDERABLES Final Res ult [facility] [address] [place] [address] [phone] * HIV-1/2 Antigen and Antibodies, Fourth Generation, with Reflexes (01/24/2024 11:05 AM EDT) [facility] HIV AB/AG Nonreactive Nonreactive [facility] Comment:HIV-1 p24 Ag and/or HIV-1/HIV-2 Ab not detected.A test result that is nonreactive does not exclude thepossibility of exposure to or infection with HIV-1 and/orHIV-2. Nonreactive results in this assay for individualswith prior exposure to HIV-1 and/or HIV-2 may be due toantigen and antibody levels that are below the limit ofdetection of this assay.The [employer] HIV Ag/Ab Combo assay result andsupplemental assay results should be interpreted inconjunction with the patient's clinical presentation,history and other laboratory results. If the results areinconsistent with clinical evidence, additional testing issuggested to confirm the result. Blood Venous blood specimen / Unknown 01/24/2024 11:05 AM EDT 01/24/2024 2:04 PM EDT us Demetria Chaparro WIRE WHEELER LAB BLOOD ORDERABLES Final Res ult [facility] [address] [place] [address] [phone] * Pap Smear (05/26/2021 12:00 AM EST) Swab Soniya Garcia CN LAB CYTOLOGY ORDERABLES F inal Result Performing Organization Address City/[facility]/ZIP Co de Phone Number [address], [place] [address] * THINPREP TIS PAP AND HPV mRNA E6/E7, CT/NG, TRICH (05/22/2021 7:14 PM EST) Chlamydia trachomatis RNA, TMA, Urogenital NOT DETECTED NOT DETECTED [facility] Clinical Information: None given [facility] COMMENT SEE COMMENT [facility] Comment: The analytical performance characteristics of this assay, when used to test SurePath(TM) specimens have been determined by [employer]. The modifications have not been cleared or approved by the FDA. This assay has been validated pursuant to the CLIA regulations and is used for clinical purposes. ?? For additional information, please refer to https://education.myMedScore/faq/ETR469 (This link is being provided for information/ [...] was manually screened according to routine procedures. Drilling Engineer: SEE COMMENT [facility] Comment: MAA, CT(ASCP) CT screening location: [address] ??[id number] HPV nRNA E6/E7 Not Detected Not Detected [facility] Comment: Methodology: Fish Cake Maker-Mediated Amplification This assay detects E6/E7 viral messenger RNA (mRNA) from 14 high-risk HPV types (16,18,31,33,35,39,45,51,52,56,58,59,66,68). ? The analytical performance characteristics of this assay have been determined by [employer]. The modifications have not been cleared or approved by the FDA. This assay has been validated pursuant to the CLIA regulations and is used for clinical purposes. ?? For additional information, please refer to http://education.myMedScore/faq/WQA769r0 (This link if provided for information/ educational purposes only.) Interpretation/Re sult: Unable to provide interpretation due to unsatisfactory specimen adequacy. [facility] LMP: NONE GIVEN [facility] Neisseria gonorrhoeae RNA, TMA, Urogenital NOT DETECTED NOT DETECTED [facility] Prev. BX: NONE [facility]IVEN [facility] Prev. PAP: NONE [facility]IV[facility] Review Drilling Engineer: SEE COMMENT [facility] Comment: GSG, CT(ASCP) CT screening location: [address] ??[id number] SOURCE: None given [facility] Statement Of Adequacy: SEE COMMENT [facility] Comment: Specimen processed and examined, but unsatisfactory for evaluation due to an insufficient number of squamous cells. Partially obscuring blood Trichomonas vaginalis, QL, TMA, PAP Vial NOT DETECTED NOT DETECTED [facility] Comment: The analytical performance characteristics of this assay have been determined by [employer]. The modifications have not been cleared or approved by the FDA. This assay has been validated pursuant to the CLIA regulations and is used for clinical purposes. ?? For additional information, please refer to http://education.myMedScore/ faq/Trichomonastma (This link is being provided for information/ educational purposes only.) ?? NO COLLECTION DATE RECEIVED. WE HAVE USED THE DATE THE SPECIMEN WAS RECEIVED BY THIS LABORATORY THE COLLECTION DATE. IF THIS IS INCORRECT, PLEASE CONTACT CLIENT SERVICES. PHONE NUMBER: ?? 05/22/2021 7:14 PM EST us Tiff Galdamez NP LAB PATHOLOGY ORDERABLES Final Result [facility] [address] [place] [address], from Last 3 Months or Most Recently Relevant to Health Maintenance Insurance [facility] DENT[facility] MEDICAID STAND ADULT Care Teams Trolley Operator Relationship Specialty Start Date End Date Demetria Chaparro FNP [address] [place] [address] PCP - General Family Medicine 02/06/22
--- OUTSIDE RECORDS SUMMARY | 2024-09-12 17:41 | XMS_ITS | Encounter Summary ---
Author Organization [employer] Address [address] [facility] [address]t [place] [address] Care Team Providers Care Molding Line Assistant Name Role Phone Demetria Chaparro Primary Care Provider [phone] Reason for Visit * Reason Onset Date Comments Nurse Triage 09/05/2023 Encounter Details Date Type Department Care Team ([facility] st Contact Info) Description 09/05/2023 Telephone [facility] [address] [place] [address] Demetria Chaparro FNP [address] [place] [address] Nurse Triage Social History Tobacco Use Types [...] PM EDT Triage call attempted x2 with unity [employer] [place] [id number] Pt didn't answer. Left voice message to call [facility] [phone] * Telephone Encounter - Shelby Perez - [...] Description 11/12/2024 11:15 AM EDT Office Visit [facility] [address] [place] [address] Demetria Chaparro FNP [address] [place] [address] documented as of this encounter Visit Diagnoses Not on filedocumented in this encounter Additional Health Concerns Assessment Noted Time PHQ-9 Depression Total Score: 0 10/03/19 23 9:54 AM EDT documented as of this encounter Care Teams Molding Line Assistant Relationship Specialty Start Date End Date Demetria Chaparro FNP [address] [place] [address] PCP - General Family Medicine 02/06/22 documented as of this encounter
[2024-09-12 17:52] LABS: Appearance Urine Clear; Color Urine Yellow; Glucose Urine UA Negative (Negative); Leukocyte Esterase Urine Negative (Negative); Nitrite Urine Negative (Negative); PH 6.5 (5.0-9.0); Specific Gravity - Urine >= 1.030 (1.005-1.025); UMIC TRIGGER UACC YES; Urine Blood Small (1+) (Negative); Urine Ketones Trace mg/dL (Negative); Urine Protein Trace mg/dL (Neg-Trace)
[2024-09-12 18:06] LABS: Bacteria Urine 1+ (None Seen); Hyaline Casts Urine 0-2 /LPF (0-2); WBC Urine 0-5 /HPF (0-5)
[2024-09-13 04:33] LABS: CT PCR NOT DETECTED (Not Detect.); NG PCR NOT DETECTED (Not Detect.)
[2024-09-13 12:30] LABS: Bacterial Vaginosis PCR NEGATIVE (Negative); Candida Group PCR NOT DETECTED (Not Detect); Candida glab krusei PCR NOT DETECTED (Not Detect); Trichomonas vaginalis PCR NOT DETECTED (Not Detect)
== END 2024-09-12 17:39 | disposition home or self-care (01) ==
LOC: HO.HHCLNP 17:38
PROVIDERS: Visit Provider Registered Nurse
DX: N89.8 Other specified noninflammatory disorders of vagina (principal); R39.9 Unspecified symptoms and signs involving the genitourinary system
CPT/HCPCS: 81001; 81515; 87491; 87591

== ENCOUNTER 2024-09-16 09:18 | Day surgery (SDC) | payer MEDICAID, SELFPAY ==
--- OUTSIDE RECORDS SUMMARY | 2024-08-06 17:26 | XMS_ITS | Encounter Summary ---
Author Organization [employer] Address [address] [place] [address] Care Team Providers Care Photoengraving Helper Name Role Phone Demetria Chaparro Primary Care Provider [phone] Reason for Visit * Reason Onset Date Comments Nurse Triage 09/05/2023 Encounter Details Date Type Department Care Team ([facility] st Contact Info) Description 09/05/2023 Telephone [facility] [address] [place] [address] Demetria Chaparro FNP [address] [place] [address] Nurse Triage Social History Tobacco Use Types Packs/Day Years Used Date Smoking Tobacco: Never Smokeless Tobacco: Never Alcohol Use Standard Drinks/Week Comments Never 0 (1 standard drink = 0.6 oz pur e alcohol) Depression Answer Date Recorded Patient Health Questionnaire-9 Score 0 10/02/2022 Housing Stability Answer Date Recorded What is your housing situation today? I have rey hicks 03/27/[address] you li ve. Do you have problems with any of the following? None of the above 03/27/2023 Food Insecurity Answer Date Recorded Within the past 12 months, y ou worried that your food would run out before you got money to buy more: Sometimes True 2022 Within the past 12 months,th e food you bought just didn't last and you didn't have enough money to get more: Sometimes True 03/27/2023 Transportation Answer Date Recorded In the past 12 months, has l ack of transportation kept you from medical appts, meetings, work or from getting things needed for daily living? No 03/27/2023 Utilities Answer Date Recorded In the past 12 months, has t he electric, gas, oil or water company threatened to shut off services in your home? Yes 03/19/2023 Depression Answer Date Recorded Patient Health Questionnaire-2 Score 0 10/02/2022 Comments No Sex and Gender Information Value Date Recorded Sex Assigned at Female 04/10/2022 10:36 AM EDT Legal Sex Female 10:36 AM EDT Gender Identity Female 04/10/2022 10:36 AM EDT Sexual Orientation Straight 04/10/2022 10 :36 AM EDT documented as of this encounter Miscellaneous Notes * Telephone Encounter - Bridget Coronado RN - 09/05/2023 4:54 PM EDT Triage call attempted x2 with [facility] [id number] Pt didn't answer. Left voice message to call [facility] [phone] * Telephone Encounter - Shelby Perez - 09/05/2023 4:37 PM EDT Symptom: Vomiting Outcome: Schedule an urgent appointment (within 4 hours) or talk to a nurse or provider soon Reason: Vomited at least once in the past 8 hours The caller accepted this outcome documented in this encounter Plan of Treatment Upcoming Encounters Date Type Department Care Team (Late st Contact Info) Description 08/13/2024 11:30 AM EST Office Visit [facility] [address] [place] [address] Demetria Chaparro FNP [address] [place] [address] documented as of this encounter Visit Diagnoses Not on filedocumented in this encounter Additional Health Concerns Assessment Noted Time PHQ-9 Depression Total Score: 0 10/03/19 23 9:54 AM EDT documented as of this encounter Care Teams Photoengraving Helper Relationship Specialty Start Date End Date Demetria Chaparro FNP [address] [place] [address] PCP - General Family Medicine 02/06/22 documented as of this encounter
--- OUTSIDE RECORDS SUMMARY | 2024-08-06 17:26 | XMS_ITS | Encounter Summary ---
Author Organization [employer] Address [address] [place] [address] Care Team Providers Care Kennel Helper Name Role Phone Demetria Chaparro Primary Care Provider [phone] Reason for Visit * Reason Onset Date Comments July recall 07/30/2024 Encounter Details Date Type Department Care Team ([facility] Contact Info) Description 07/30/2024 Telephone [facility] [address] [place] [address] Demetria Chaparro FNP [address] [place] [address] July recall Social History Tobacco Use Types Packs/Day Years Used Date Smoking Tobacco: Never Smokeless Tobacco: Never Alcohol Use Standard Drinks/Week Comments Never 0 (1 standard drink = 0.6 oz pur e alcohol) Depression Answer Date Recorded Patient Health Questionnaire-9 Score 11 04/21/2024 Patient Health Questionnaire-9 Score 11 04/21/2024 Last PHQ-9: Questionnaire Data Not on file 1 06/21/2023 Housing Stability Answer Date Recorded What is your housing situation today? I have rey sing 01/21/[address] you li ve. Do you have problems with any of the following? None of the above 01/21/2024 Food Insecurity Answer Date Recorded Within the past 12 months, y ou worried that your food would run out before you got money to buy more: Never True 04/21/2024 Within the past 12 months,th e food you bought just didn't last and you didn't have enough money to get more: Never True 04/2024 Transportation Answer Date Recorded In the past 12 months, has l ack of transportation kept you from medical appts, meetings, work or from getting things needed for daily living? No 01/21/2024 Utilities Answer Date Recorded In the past 12 months, has t he electric, gas, oil or water company threatened to shut off services in your home? No 01/21/2024 Depression Answer Date Recorded Patient Health Questionnaire-2 Score 4 04/21/2024 Internet Access Answer Date Recorded Internet Access Q1 Yes 02/11/2024 Internet Access Q2 Not on file 02/11/2024 Comments No Sex and Gender Information Value Date Recorded Sex Assigned at Female 04/10/2022 10:36 AM EDT Legal Sex Female 10:36 AM EDT Gender Identity Female 04/10/2022 10:36 AM EDT Sexual Orientation Straight 04/10/2022 10 :36 AM EDT documented as of this encounter Miscellaneous Notes * Telephone Encounter - Jame Robles MA - 07/30/2024 2:34 PM EST Telephone call to patient to schedule the following recall: Visit type: Follow up Appointment notes: Chronic conditions Patient agree to appointment on 08/13/2024 at 11:30 AM with Shankar . Pt aware appt location will be [facility] green team. documented in this encounter Plan of Treatment Upcoming Encounters Date Type Department Care Team (Late st Contact Info) Description 08/13/2024 11:30 AM EST Office Visit [facility] [address] [place] [address] Demetria Chaparro FNP [address] [place] [address] documented as of this encounter Visit Diagnoses Not on filedocumented in this encounter Additional Health Concerns Assessment Noted Time PHQ-9 Depression Total Score: 11 024 11:19 AM EST documented as of this encounter Care Teams Kennel Helper Relationship Specialty Start Date End Date Demetria Chaparro FNP [address] [place] [address] PCP - General Family Medicine 02/06/22 documented as of this encounter
--- OUTSIDE RECORDS SUMMARY | 2024-08-06 17:26 | XMS_ITS | Clinical Summary ---
Demographics Address [address] [place] [address] Home Phone Preferred Language Portuguese Marital Status Episcopal Affiliation Unknown Race Unknown Ethnic Group or Author Organization [facility] Address [address] [place] [address] Care Team Providers Care Design Engineer Name Role Phone Unavailable Primary Care Provider Unavailabl e Allergies No known active allergies Medications Medication Sig Dispensed Refills Start Date End Date Status Vit-Fe Fumarate-FA ( PLUS) 27-1 MG TABS tablet Take 1 tablet by mouth every morning after breakfast. 0 Active pyridoxine (B-6) 50 MG tablet Take 50 mg by mouth daily. 0 Active ondansetron (ZOFRAN) 8 MG tablet Take by mouth every 8 (eight) hours as needed for nausea. 0 Active ferrous sulfate 325 (65 FE) MG tablet Take 325 mg by mouth every morning with breakfast. 0 Active Cyanocobalamin 1000 MCG/ML KIT Inject 1 mg as directed daily. 7 kit 0 06/04/2019 Active Active Problems Problem Noted Date Diagnosed Date Absolute anemia 06/04/2019 Iron deficiency anemia secon savi to inadequate dietary iron intake 06/04/2019 Anemia 06/03/2019 Social History Tobacco Use Types Packs/Day Years Used Date Smoking Tobacco: Some Days Smokeless Tobacco: Never Alcohol Use Standard Drinks/Week Comments No 0 (1 standard drink = 0.6 oz pur e alcohol) Sex and Gender Information Value Date Recorded Sex Assigned at Not on file Gender Identity Not on file Sexual Orientation Not on file Last Filed Vital Signs Vital Sign Reading Time Taken Comments Blood Pressure 110/57 06/03/2019 10:21 AM EST Pulse 90 06/03/2019 10:21 AM EST Temperature 36.9 ??C (98.4 ??F) 06/03/2019 10:[address] Respiratory Rate - - Oxygen Saturation - - Inhaled Oxygen Concentration - - Weight 65.3 kg (144 lb) 06/03/2019 10:21 AM EST Height 160 cm (5' 3 ) 06/03/2019 10:21 AM EST Body Mass Index 25.51 06/03/2019 10:21 AM EST Plan of Treatment Health Maintenance Due Date Last Done Comments Hepatitis B Vaccines (1 of 3 - 3-dose series) 1988 Hepatitis C Screening 1990 COVID-19 Vaccine (#1) 1990 Pneumococcal Vaccine (1 of 2 - PCV) 02/19/1994 Depression Screening 2000 BMI Counseling 02/19/2006 Preventative Health Evaluation 02/19/2006 Tobacco Cessation Counseling 02/19/2006 Cervical Cancer Screening (P ap Smear) 02/19/2009 Influenza Vaccine (#1) 2024 04/08/2019 DTap / Tdap / Td (2 - Td or Tdap) 03/20/2029 019 RSV Ped < 20 months Aged Out No longe r eligible based on patient's age to complete this topic Guarantor Name Account Type Relation to Patient Date of Phone Billing Address Rafita Kuo Personal/Family Self [address] [place] [address]
--- OUTSIDE RECORDS SUMMARY | 2024-08-06 17:26 | XMS_ITS | Clinical Summary ---
Author Organization [facility] Address [address] [place] [address] Phone Care Team Providers Care Shank Pinner Name Role Phone Physician, No Pcp Primary Care Provider Unavaila ble Allergies Active Allergy Reactions Criticality Noted Date Comments Ibuprofen High 06/27/2022 Abdominal pain; difficulty breathing Iodinated Contrast Media Swelling 10/26/2022 Medications No known medications Encounters Date Type Department Care Team Description 05/12/2024 1:52 PM EST - 05/12/2024 4:23 PM EST Emergency [facility] [address] [place] [address] Tima Jones MD Migraine without status migrainosus, not intractable, unspecified migraine type (Primary Dx) Discharge Disposition: Home or Self Care from Last 3 Months Surgical History Surgery Date Site/Laterality Comments UMBILICAL HERNIA REPAIR 07/12/2023 PROCEDURE: LAP UMBILICAL HERNIA REPAIR Medical History Medical History Date Comments Anxiety DX:Anxiety Panic attacks DX:Panic attacks ; COMMENT: lexparo in the past with + results Asthma DX:Asthma Anemia 06/2018 DX:Anemia; COMME NT: pt states rx'd iron TID by pcp. currently not taking due to Headache, migraine 11/11/2018 DX:Headache, migraine; COMMENT: rx'd fiorcet and topamax in the past with + results Grand multipara DX:Grand multipa ra Cigarette smoker DX:Cigarette sm oker UTI (urinary tract infection) 11/11/2018 DX :UTI (urinary tract infection); COMMENT: tx'd 11-01-18 Family History Medical History Relation Name Comments No Known Problems Brother 1 No Known Problems Brother 2 Depression Father Manuel Melanoma Maternal Grandfather Joao Cataracts Maternal Grandmother Neema Diabetes Maternal Grandmother Neema Hypertension Maternal Grandmother Neema Hyperlipidemia Mother Layda Hypertension Mother Layda Other: major depression Mother Layda Other: psychosis Mother Layda No Known Problems Paternal Grandfather Manuel Colon cancer Paternal Grandmother Silvina Other: hydrocephalus Sister 1 Nancy Depression Sister 2 Barbi Hypertension Sister 2 Barbi Relation Name Status Comments Brother 1 Alive Brother 2 Alive Father Manuel Alive Maternal Grandfather Joao Maternal Grandmother Neema Alive Mother Layda Alive Paternal Grandfather Manuel Alive Paternal Grandmother Silvina Sister 1 Nancy Alive Sister 2 Barbi Alive Social History Tobacco Use Types Packs/Day Years Used Date Smoking Tobacco: Former Cigarettes Smokeless Tobacco: Never Alcohol Use Standard Drinks/Week Comments No 0 (1 standard drink = 0.6 oz pur e alcohol) Comments Unknown Sex and Gender Information Value Date Recorded Sex Assigned at Not on file Legal Sex Female 2:16 AM EST Gender Identity Female 04/18/2024 10:59 AM EST Sexual Orientation Not on file Obstetrics History Last Filed Vital Signs Vital Sign Reading Time Taken Comments Blood Pressure 113/74 05/12/2024 2:33 PM EST Pulse 66 05/12/2024 2:33 PM EST Temperature 36.3 ??C (97.3 ??F) 05/12/2024 1:22 PM ES T Respiratory Rate 18 05/12/2024 2:33 PM EST Oxygen Saturation 100% 05/12/2024 2:33 PM EST Inhaled Oxygen Concentration - - Weight 61.2 kg (135 lb) 05/12/2024 1:22 PM EST Height 162.6 cm (5' 4 ) 05/12/2024 1:22 PM EST Body Mass Index 23.17 05/12/2024 1:22 PM EST Plan of Treatment Health Maintenance Due Date Last Done Comments Hepatitis B Vaccines (1 of 3 - 19+ 3-dose series) 02/19/2007 Pneumococcal Vaccine: Pediatrics (0 to 5 Years) and At-Risk Patients (6 to 64 Years) (1 of 2 - PCV) 02/19/2007 Hepatitis C Screening 05/14/2022 Social Influencers of Health Screening 05/14/2022 COVID-19 Vaccine (1 - 2023-2 5 season) 2024 Cervical Cancer Screening: P ap Smear 05/26/2024 05/26/2021, 12/05/2018 Depression Screening 04/21/2025 04/21/2024 Cholesterol Screening (Lipid Panel) 01/23/2029 01/24/2024 DTaP,Tdap,and Td Vaccines (2 - Td or Tdap) 03/20/2029 03/20/2019 HIV Screening Completed 01/24/2024, 11/29/2023 Influenza Vaccine Completed 04/21/2024, 04/08/2019 HIB Vaccines Aged Out No longer eligi ble based on patient's age to complete this topic HPV Vaccines Aged Out No longer eligi ble based on patient's age to complete this topic Hepatitis A Vaccines Aged Out No long er eligible based on patient's age to complete this topic IPV Vaccines Aged Out No longer eligi ble based on patient's age to complete this topic MMR Vaccines Aged Out No longer eligi ble based on patient's age to complete this topic Meningococcal ACWY Vaccine Aged Out N o longer eligible based on patient's age to complete this topic Meningococcal B Vacine Aged Out No lo nger eligible based on patient's age to complete this topic RSV Immunization Patients Under 20 months Aged Out No longer eligible b ased on patient's age to complete this topic Varicella Vaccines Aged Out No longer eligible based on patient's age to complete this topic Procedures Procedure Name Priority Date/Time Associated Diagnosis Comments POC , URINE DIAGNOSTIC STAT 05/12/2024 2:43 PM EST RESPIRATORY VIRUS PANEL MOLECULAR STUDY STAT 05/12/2024 2:13 PM EST CBC WITH AUTO DIFFERENTIAL STAT 05/12/2024 1:58 PM EST LIPASE STAT 05/12/2024 1:58 PM EST MAGNESIUM STAT 05/12/2024 1:58 PM EST COMPREHENSIVE METABOLIC PANEL STAT 05/12/2024 1:58 PM EST CBC AND DIFFERENTIAL STAT 05/12/2024 1:58 PM EST PAP SMEAR Routine 12/05/2018 from Last 3 Months or Most Recently Relevant to Health Maintenance Results * POC , urine manually resulted (05/12/2024 2:43 PM EST) Pathologist [facility] HCG, Ur POC Negative Negative POC hCG Int QC Pass? Yes Yes Urine Urine specimen obtained by clean catch procedure / Unknown 05/12/2024 2:43 PM EST Tima B Robert CHIU POINT OF CARE TEST ENTER/EDIT O RDERABLES Final Result * Respiratory virus panel molecular study (05/12/2024 2:13 PM EST) [facility] Adenovirus Detection by PCR Not Detected Not Detected LAB MICROBIOLOGY METHOD 05/12/2024 4:16 PM [facility] Influenza A PCR Not Detected Not Detected LAB MICROBIOLOGY METHOD 05/12/2024 4:16 PM [facility] Influenza B PCR Not Detected Not Detected LAB MICROBIOLOGY METHOD 05/12/2024 4:16 PM [facility] Coronavirus 229E Not Detected Not Detected LAB MICROBIOLOGY METHOD 05/12/2024 4:16 PM [facility] Coronavirus HKU1 Not Detected Not Detected LAB MICROBIOLOGY METHOD 05/12/2024 4:16 PM [facility] Coronavirus OC43 Not Detected Not Detected LAB MICROBIOLOGY METHOD 05/12/2024 4:16 PM [facility] Coronavirus NL63 Not Detected Not Detected LAB MICROBIOLOGY METHOD 05/12/2024 4:16 PM [facility] Parainfluenza Virus 1 Not Detected Not Detected LAB MICROBIOLOGY METHOD 05/12/2024 4:16 PM [facility] Parainfluenza Virus 2 Not Detected Not Detected LAB MICROBIOLOGY METHOD 05/12/2024 4:16 PM [facility] Parainfluenza Virus 3 Not Detected Not Detected LAB MICROBIOLOGY METHOD 05/12/2024 4:16 PM [facility] Parainfluenza Virus 4 Not Detected Not Detected LAB MICROBIOLOGY METHOD 05/12/2024 4:16 PM [facility] RSV PCR Not Detected Not Detected LAB MICROBIOLOGY METHOD 05/12/2024 4:16 PM [facility] Human Metapneumovirus A and B Not Detected Not Detected LAB MICROBIOLOGY METHOD 05/12/2024 4:16 PM [facility] Rhinovirus/Entero virus Not Detected Not Detected LAB MICROBIOLOGY METHOD 05/12/2024 4:16 PM [facility] Bordetella pertussis Not Detected Not Detected LAB MICROBIOLOGY METHOD 05/12/2024 4:16 PM [facility] Bordetella parapertussis Not Detected Not Detected LAB MICROBIOLOGY METHOD 05/12/2024 4:16 PM [facility] Mycoplasma pneumo by PCR Not Detected Not Detected LAB MICROBIOLOGY METHOD 05/12/2024 4:16 PM [facility] Chlamydia pneumoniae Not Detected Not Detected LAB MICROBIOLOGY METHOD 05/12/2024 4:16 PM [facility] SARS COV-2 Not Detected Not Detected LAB MICROBIOLOGY METHOD 05/12/2024 4:16 PM [facility] Swab Both anterior nares / Unknown Non-blood Collection / Unknown 05/12/2024 2:13 PM EST 05/12/2024 3:18 PM EST [facility] - 05/12/2024 4:16 PM EST Testing was performed using the Common[employer] Respiratory Pathogen PCR Assay. All results must be correlated with the clinical findings. Results should not be used as the sole basis for diagnosis. False Negative results may occur from the presence of sequence variants in the region targeted by the assay or the presence of inhibitors. Results may be affected by concurrent antiviral/antimicrobial therapy or levels of organisms that are below the limit of detection. us Melinda R Hevey PA LAB MICROBIOLOGY - GENERAL OR DERABLES Final Result [facility] [address] [place] [address], * (ABNORMAL) CBC auto differential (05/12/2024 1:58 PM EST) WBC 7.4 4.8 - 10.8 K/mcL LAB HEMETOLOGY METHOD 05/12/2024 3:03 PM [facility] RBC 4.80 3.80 - 4.80 M/mcL LAB HEMETOLOGY METHOD 05/12/2024 3:03 PM [facility] Hemoglobin 10.9(L) 11.5 - 16.0 g/dL LAB HEMETOLOGY METHOD 05/12/2024 3:03 PM [facility] Hematocrit 36.4 35.0 - 47.0 % LAB HEMETOLOGY METHOD 05/12/2024 3:03 PM [facility] MCV 76.3(L) 79.0 - 98.0 FL LAB HEMETOLOGY METHOD 05/12/2024 3:03 PM [facility] MCH 22.9(L) 27.0 - 32.0 pcg LAB HEMETOLOGY METHOD 05/12/2024 3:03 PM [facility] MCHC 29.9(L) 32.0 - 37.0 g/dL LAB HEMETOLOGY METHOD 05/12/2024 3:03 PM [facility] RDW 17.9(H) 11.0 - 15.0 % LAB HEMETOLOGY METHOD 05/12/2024 3:03 PM [facility] Platelets 416(H) 130 - 400 K/mcL LAB HEMETOLOGY METHOD 05/12/2024 3:03 PM [facility] MPV 10.4 7.0 - 11.0 FL LAB HEMETOLOGY METHOD 05/12/2024 3:03 PM [facility] NRBC 0.0 <1.0 % LAB HEMETOLOGY METHOD 05/12/2024 3:03 PM [facility] NRBC Absolute 0.00 <0.10 K/mcL LAB HEMETOLOGY METHOD 05/12/2024 3:03 PM [facility] Neutrophils Relative 76.6 % LAB HEMETOLOGY METHOD 05/12/2024 3:03 PM [facility] Lymphocytes Relative 17.2 % LAB HEMETOLOGY METHOD 05/12/2024 3:03 PM [facility] Monocytes Relative 5.0 % LAB HEMETOLOGY METHOD 05/12/2024 3:03 PM [facility] Eosinophils Relative 0.4 % LAB HEMETOLOGY METHOD 05/12/2024 3:03 PM [facility] Basophils Relative 0.4 % LAB HEMETOLOGY METHOD 05/12/2024 3:03 PM [facility] Immature Granulocytes Relative 0.4 % LAB HEMETOLOGY METHOD 05/12/2024 3:03 PM [facility] Neutrophils Absolute 5.67 1.50 - 7.00 K/mcL LAB HEMETOLOGY METHOD 05/12/2024 3:03 PM [facility] Lymphocytes Absolute 1.27 1.00 - 5.00 K/mcL LAB HEMETOLOGY METHOD 05/12/2024 3:03 PM [facility] Monocytes Absolute 0.37 0.20 - 1.00 K/mcL LAB HEMETOLOGY METHOD 05/12/2024 3:03 PM [facility] Eosinophils Absolute 0.03 0.00 - 0.50 K/mcL LAB HEMETOLOGY METHOD 05/12/2024 3:03 PM [facility] Basophils Absolute 0.03 0.00 - 0.20 K/mcL LAB HEMETOLOGY METHOD 05/12/2024 3:03 PM EST [facility] Immature Granulocytes Absolute 0.03 0.00 - 0.03 K/mcL LAB HEMETOLOGY METHOD 05/12/2024 3:03 PM EST [facility] Blood Venous blood specimen / Unknown Venipuncture / Unknown 05/12/2024 1:58 PM EST 05/12/2024 2:48 PM EST us Tima Jones MD LAB BLOOD ORDERABLES Final Resu lt Performing Organization Address City/[facility]/ZIP Co de Phone Number [facility] [address] [place] [address], [place] [phone] * Magnesium (05/12/2024 1:58 PM EST) Magnesium 2.0 1.9 - 2.6 mg/dL LAB CHEMISTRY METHOD 05/12/2024 3:21 PM EST [facility] Blood Venous blood specimen / Unknown Venipuncture / Unknown 05/12/2024 1:58 PM EST 05/12/2024 2:48 PM EST us Tima Jones MD LAB BLOOD ORDERABLES Final Resu lt Performing Organization Address City/[facility]/ZIP Co de Phone Number [facility] [address] [place] [address], [place] [phone] * Lipase (05/12/2024 1:58 PM EST) Lipase 44 13 - 75 unit/L LAB CHEMISTRY METHOD 05/12/2024 3:21 PM EST [facility] Blood Venous blood specimen / Unknown Venipuncture / Unknown 05/12/2024 1:58 PM EST 05/12/2024 2:48 PM EST us Tima Jones MD LAB BLOOD ORDERABLES Final Resu lt [facility] [address] [place] [address], * Comprehensive metabolic panel (05/12/2024 1:58 PM EST) Sodium 140 133 - 145 mmol/L LAB CHEMISTRY METHOD 05/12/2024 3:21 PM [facility] Potassium 3.8 3.5 - 5.5 mmol/L LAB CHEMISTRY METHOD 05/12/2024 3:21 PM [facility] Chloride 110 96 - 110 mmol/L LAB CHEMISTRY METHOD 05/12/2024 3:21 PM [facility] CO2 23 21 - 32 mmol/L LAB CHEMISTRY METHOD 05/12/2024 3:21 PM [facility] Anion Gap 7 3 - 11 LAB CHEMISTRY METHOD 05/12/2024 3:21 PM [facility] Glucose 96 70 - 100 mg/dL LAB CHEMISTRY METHOD 05/12/2024 3:21 PM [facility] BUN 6 5 - 25 mg/dL LAB CHEMISTRY METHOD 05/12/2024 3:21 PM [facility] Creatinine 0.75 0.50 - 1.10 mg/dL LAB CHEMISTRY METHOD 05/12/2024 3:21 PM [facility] eGFR 106 >=60 mL/min/1. 73m2 LAB CHEMISTRY METHOD 05/12/2024 3:21 PM [facility] Comment:Calculation based on the??Chronic Kidney Disease Epidemiology Collaboration (CKD-EPI) equation refit??without adjustment for race. BUN/Creatinine Ratio 8.0 LAB CHEMISTRY METHOD 05/12/2024 3:21 PM [facility] Calcium 9.6 8.5 - 10.5 mg/dL LAB CHEMISTRY METHOD 05/12/2024 3:21 PM [facility] AST (SGOT) 16 10 - 42 unit/L LAB CHEMISTRY METHOD 05/12/2024 3:21 PM [facility] ALT (SGPT) 23 10 - 60 unit/L LAB CHEMISTRY METHOD 05/12/2024 3:21 PM [facility] Alkaline Phosphatase 75 42 - 121 unit/L LAB CHEMISTRY METHOD 05/12/2024 3:21 PM [facility] Total Protein 7.2 6.0 - 8.0 g/dL LAB CHEMISTRY METHOD 05/12/2024 3:21 PM [facility] Albumin 4.0 3.2 - 5.0 g/dL LAB CHEMISTRY METHOD 05/12/2024 3:21 PM [facility] Total Bilirubin 0.7 0.0 - 1.4 mg/dL LAB CHEMISTRY METHOD 05/12/2024 3:21 PM [facility] Blood Venous blood specimen / Unknown Venipuncture / Unknown 05/12/2024 1:58 PM EST 05/12/2024 2:48 PM EST us Tima Jones MD LAB BLOOD ORDERABLES Final Resu lt [facility] [address] [place] [address], * Pap smear (12/05/2018) 12/05/2018 Narrative HISTORICAL TESTING LAB RESULTING AGENCY - 12/13/2018 2:35 PM EDT [id number] THINPREP PAP, IMAGED: NEGATIVE FOR SQUAMOUS INTRAEPITHELIAL LESION AND MALIGNANCY . REACTIVE CELLULAR CHANGES. HUMA PEREA , MELANY(ASCP) (CASE SCREENED 12 11 2018) JATIN GANN M.D. , PATHOLOGIST (CASE ELECTRONICALLY SIGNED 12 13 2018) RESULT OF APTIMA HIGH RISK HPV ASSAY: HIGH RISK HPV: ??NEGATIVE (SEROTYPES 16,18,31,33,35,39,45,51,52,56,58,59,66,68) COMPLETED ON 2018-12-10 ADEQUACY: SATISFACTORY ENDOCERVICAL/TRANSFORMATION ZONE COMPONENT PRESENT. SOURCE: THINPREP PAP HPV ANY DX: ??REFLEX 16 AND 18, CERVICAL, IMAGED CLINICAL INFORMATION: HPV ANY DIAGNOSIS. Z12.4, Z34.81, , LMP 09/11/2018 No Arias CN LAB CYTOLOGY ORDERABLES Final Result HISTORICAL TESTING LAB RESULTING AGENCY from Last 3 Months or Most Recently Relevant to Health Maintenance Insurance MEDICAID - [place] Care Teams Shank Pinner Relationship Specialty Start Date End Date Physician, No Pcp PCP - General 04/18/24
--- OUTSIDE RECORDS SUMMARY | 2024-08-06 17:26 | XMS_ITS | Encounter Summary ---
Author Organization [employer] Address [address] [place] [address] Care Team Providers Care Hospitality Ambassador Name Role Phone Demetria Chaparro SANDRA Primary Care Provider [phone] Encounter Details Date Type Department Care Team ([facility] st Contact Info) Description 10/12/2023 Orders Only [facility] MED & PEDS [address] [place] [address] Trey Garcia MD [address] [place] [address] Acute cystitis with hematuria (Primary Dx) Social History Tobacco Use Types Packs/Day Years [...] AM EDT documented as of this encounter Plan of Treatment Upcoming Encounters Date Type Department Care Team (Late st Contact Info) Description 08/13/2024 11:30 AM EST Office Visit [facility] MEDICINE [address] [place] [address] Demetria Chaparro FNP [address] [place] [address] documented as of this encounter Visit Diagnoses Diagnosis Acute cystitis with hematuria- Primary documented in this encounter Additional Health Concerns Assessment Noted Time PHQ-9 Depression Total Score: 0 10/03/19 23 9:54 AM EDT documented as of this encounter Care Teams Hospitality Ambassador Relationship Specialty Start Date End Date Demetria Chaparro FNP [address] [place] [address] PCP - General Family Medicine 02/06/22 documented as of this encounter
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
--- OUTSIDE RECORDS SUMMARY | 2024-08-06 17:26 | XMS_ITS | Encounter Summary ---
Author Organization [employer] Address [address] [facility] 7t [place] [address] Care Team Providers Care Nursing Project Coordinator Name Role Phone Demetria Chaparro Primary Care Provider [phone] Reason for Visit * Reason Onset Date Comments Results 03/28/2024 Encounter Details Date Type Department Care Team ([facility] st Contact Info) Description 03/28/2024 Telephone [facility] MEDICINE [address] [place] [address] Demetria Chaparro FNP [address] [place] [address] Results Social History Tobacco Use Types Packs/Day Years Used Date Smoking Tobacco: Never Smokeless Tobacco: Never Alcohol Use Standard Drinks/Week Comments Never 0 (1 standard drink = 0.6 oz pur e alcohol) Depression Answer Date Recorded Patient Health Questionnaire-9 Score 9 01/21/2024 Patient Health Questionnaire-9 Score 9 01/21/2024 Last PHQ-9: Questionnaire Data Not on file 0 01/21/2024 Housing Stability Answer Date Recorded What is your housing situation today? I have rey ihcks 01/21/[address] you li ve. Do you have problems with any of the following? None of the above 01/21/2024 Food Insecurity Answer Date Recorded Within the past 12 months, y ou worried that your food would run out before you got money to buy more: Sometimes True 2023 Within the past 12 months,th e food you bought just didn't last and you didn't have enough money to get more: Sometimes True 03/13/2024 Transportation Answer Date Recorded In the past [...] Answer Date Recorded Patient Health Questionnaire-2 Score 2 01/21/2024 Internet Access Answer Date Recorded Internet Access [...] encounter Miscellaneous Notes * Telephone Encounter - SANDRA Prado - 04/09/2024 9:00 AM EDT Ok thank you for letting me know, is this something you would be able to call pt and let her know, or should I sent to nurses? She is also working with the care management team, so they may be able to assist. Please let me know, thanks! * Telephone Encounter - Neema Gardner - 04/07/2024 10:55 AM EDT Fax from [facility] neurology stating unable to accommodate 2nd opinions at this time. Please advise, thank you. * Telephone Encounter - SANDRA Prado - 03/31/2024 6:13 PM EDT Please call to let her know that labs did demonstrate anemia. There are many factors that can causeanemia, such as heavy menses, GI bleed, iron deficiency, low Vit D/B12, genetic reasons, and others. - Vit D level was borderline low, please ask if she is currently taking a daily Vit D supplement. If not, please cue Vit D 1000 units daily. - Iron level was also low. Please ask if she is currently taking an iron supplement, and if not letme know so I can send in. - Vit B12 was normal Please triage/advise on any acute/concerning symptoms associated with anemia. We can plan to discuss further during our upcoming visit on 04/21/24. Please let me know if she is interested in referral for Heme/Onc for further eval, thank you. * Telephone Encounter - Madison Mckenna - 03/28/2024 2:46 PM EDT TC from pt requesting call back regarding Results. Type of results: Lab Date when done: 03/27/24 Facility: [facility] Contact pt at [phone] documented in this encounter Plan of Treatment Upcoming Encounters Date Type Department Care Team (Late st Contact Info) Description 08/13/2024 11:30 AM EST Office Visit [facility] MEDICINE [address] [place] [address] Demetria Chaparro FNP [address] [place] [address] documented as of this encounter Visit Diagnoses Not on filedocumented in this encounter Additional Health Concerns Assessment Noted Time PHQ-9 Depression Total Score: 9 01/21/20 24 10:18 AM EDT documented as of this encounter Care Teams Nursing Project Coordinator Relationship Specialty Start Date End Date Demetria Chaparro FNP [address] [place] [address] PCP - General Family Medicine 02/06/22 documented as of this encounter
--- OUTSIDE RECORDS SUMMARY | 2024-08-06 17:26 | XMS_ITS | Encounter Summary ---
Author Organization [employer] Address [address] [facility] 7t [place] [address] Care Team Providers Care Home Mortgage Disclosure Act Specialist Name Role Phone Demetria Chaparro Primary Care Provider [phone] Reason for Visit * Reason Onset Date Comments ER Follow-up 11/06/2023 Encounter Details Date Type Department Care Team ([facility] Contact Info) Description 11/06/[address] [facility] MED & PEDS [address] [place], [place] [id number] Demetria Chaparro FNP [address] [place] [address] ER Follow-up Social History Tobacco Use Types Packs/Day Years [...] encounter Miscellaneous Notes * Telephone Encounter - Wing Hamzah RN - 11/08/2023 11:38 AM EDT Tc to pt using [employer] [place], [place] [id number], top installer unable to reach pt, left messagefor pt to call back. * Telephone Encounter - Shelby Perez - 11/06/2023 1:06 PM EDT Patient calling to report ED visit on : Date: 10/26/23 [place] [facility] Seen for: abdominal pain and migrans Patient advised will forward to team nurse for follow up Pt would like to get an US done . documented in this encounter Plan of Treatment Upcoming Encounters Date Type Department Care Team (Late st Contact Info) Description 08/13/2024 11:30 AM EST Office Visit [facility] MEDICINE [address] [place] [address] Demetria Chaparro FNP [address] [place] [address] documented as of this encounter Visit Diagnoses Not on filedocumented in this encounter Additional Health Concerns Assessment Noted Time PHQ-9 Depression Total Score: 0 10/03/19 23 9:54 AM EDT documented as of this encounter Care Teams Home Mortgage Disclosure Act Specialist Relationship Specialty Start Date End Date Demetria Chaparro FNP [address] [place] [address] PCP - General Family Medicine 02/06/22 documented as of this encounter
--- OUTSIDE RECORDS SUMMARY | 2024-08-06 17:26 | XMS_ITS | Encounter Summary ---
Author Organization [employer] Address [address] [facility] 7 [place] [address] Care Team Providers Care Manufacturing Engineer Supervisor Name Role Phone Demetria Chaparro Primary Care Provider [phone] Reason for Visit * Reason Onset Date Comments Appointment Request 08/28/2022 Encounter Details Date Type Department Care Team ([facility] st Contact Info) Description 08/28/2022 Telephone [facility] MEDICINE [address] [place] [address] Demetria Chaparro FNP [address] [place] [address] Appointment Request Social History Tobacco Use Types Packs/Day Years Used Date Smoking Tobacco: Every Day Cigarettes Smokeless Tobacco: Never Alcohol Use Standard [...] encounter Miscellaneous Notes * Telephone Encounter - Nieves Devine - 08/28/2022 4:15 PM EDT Tc from [facility] with N requesting a physical appt for pt. Please contact pt at [phone] documented in this encounter Plan of Treatment Upcoming Encounters Date Type Department Care Team (Late st Contact Info) Description 08/13/2024 11:30 AM EST Office Visit [facility] MEDICINE [address] [place] [address] Demetria Chaparro FNP [address] [place] [address] documented as of this encounter Visit Diagnoses Not on filedocumented in this encounter Additional Health Concerns Assessment Noted Time PHQ-9 Depression Total Score: 0 07/04/19 11:01 AM EST documented as of this encounter Care Teams Manufacturing Engineer Supervisor Relationship Specialty Start Date End Date Demetria Chaparro FNP [address] [place] [address] PCP - General Family Medicine 02/06/22 documented as of this encounter
[2024-09-12 14:30] VITALS: BMI 31.4
--- NOTE | 2024-09-15 10:17 | HO.ANESPROP2 ---
Documented by User: Kylah Pink NP 09/15/24 10:22 HPI - Anesthesia Eval Consult details Narrative: 34yo F for Upper Endoscopy Follows [facility] for PAF, s/p cardioversion 06/2024 in ER, no OAC. Optimized per 09/11/24 office visit. PMF Active Problems Active Problems: All Active Problems Anemia (Chronic) Umbilical hernia (Acute) Past Medical History Medical History (Updated 09/12/24 @ 14:13 by Cassie Loomis RN) History of cardioversion GERD (gastroesophageal reflux disease) Obesity Depression PAF (paroxysmal atrial fibrillation) Palpitations COVID Migraine Panic attack Anxiety Asthma Family History Family History Maternal Grandfather Skin cancer Paternal Grandmother Colon cancer Family history of problems with anesthesia: No Surgical History Surgical History (Updated 09/12/24 @ 14:11 by Cassie Loomis RN) History of esophagogastroduodenoscopy (EGD) H/O umbilical hernia repair (07/23/23) H/O dilation and curettage History of Problems with Anesthesia: No Social History Social History Household Members: Children Housing: Apartment Are you a primary ostomy care nurse to a significant other at home: No Do you presently have visiting nurse or other home services: No Alcohol intake: never Comment: counts correct Patient Tobacco Use Status: Former Tobacco user Tobacco use type: Cigarette Years Smoked: 15 Use of substances other than those prescribed or required for medical reasons: No Have you been hit, kicked, punched, or otherwise hurt by someone within the past year? If so, by whom?: No Are you DNR?: No Advance Directives: No Advance Directives Information Provided: Yes Patient : No FDLMP: 09/07/24 service: No Current occupational status: unemployed Gender identity: Female Meds Allergies Allergy/AdvReac Type Severity Reaction Status Date / Time ibuprofen Allergy Mild Gastrointestinal Verified 09/16/24 09:31 Upset Iodinated Contrast Media Allergy Swelling Verified 09/16/24 09:31 shellfish derived Allergy Unknown Verified 09/16/24 09:31 Home Medications ?Medication ?Instructions ?Recorded ?Confirmed ?Last Taken ?Type cetirizine 10 mg tablet 1 tab PO BEDTIME PRN Allergy 10/29/20 09/16/24 2 Days Ago History Symptoms ~06/22/22 albuterol sulfate 90 mcg/actuation 1 puff PO Q4-6H PRN Shortness Of 07/20/21 09/16/24 Unknown History aerosol inhaler (ProAir HFA) Breath Or Wheezing sumatriptan succinate 50 mg tablet 50 mg PO Q2H PRN Migraine Headache 07/20/21 09/16/24 Unknown History hydroxyzine HCl 25 mg tablet 1 tab PO Q8-10H PRN panic attack 06/24/22 09/16/24 Unknown History metoprolol tartrate 25 mg tablet 1 tab PO BID 06/24/22 09/16/24 2 Days Ago History ~06/22/22 verapamil 40 mg tablet 40 mg PO BEDTIME 06/16/24 09/16/24 Unknown History ergocalciferol (vitamin D2) 1,250 1,250 mcg PO QWEEK 09/12/24 09/16/24 Unknown History mcg (50,000 unit) capsule (Vitamin D2) escitalopram oxalate 10 mg tablet 15 mg PO DAILY 09/12/24 09/16/24 Unknown History sennosides 8.6 mg tablet (senna) 17.2 mg PO BEDTIME PRN Constipation 09/12/24 09/16/24 Unknown History valacyclovir 1 gram tablet 1,000 mg PO BID 09/12/24 09/16/24 Unknown History Exam Height,Weight and Vital Signs: Height 5 ft 3 in Weight 80.286 kg Pertinent Lab Results Pertinent Lab Results: CBC and BMP 06/2024 from [facility] Narrative Narrative: EKG 09/2024 SR with SA ?LAE Nonspecific T wave abn Assessment and Plan Assessment Anesthesia Assessment: Chart Reviewed Final Anesthetic Review Family History of Problems with Anesthesia: No History of Problems with Anesthesia: No Documented by User: Angie Connor MD 09/16/24 10:02 [facility] Past Medical History Medical History (Updated 09/12/24 @ 14:13 by Cassie Loomis RN) History of cardioversion GERD (gastroesophageal reflux disease) Obesity Depression PAF (paroxysmal atrial fibrillation) Palpitations COVID Migraine Panic attack Anxiety Asthma Family History Family History Maternal Grandfather Skin cancer Paternal Grandmother Colon cancer Surgical History Surgical History (Updated 09/12/24 @ 14:11 by Cassie Loomis RN) History of esophagogastroduodenoscopy (EGD) H/O umbilical hernia repair (07/23/23) H/O dilation and curettage Social History Social History Household Members: Children Housing: Apartment Are you a primary ostomy care nurse to a significant other at home: No Do you presently have visiting nurse or other home services: No Alcohol intake: never Comment: counts correct Patient Tobacco Use Status: Former Tobacco user Tobacco use type: Cigarette Years Smoked: 15 Use of substances other than those prescribed or required for medical reasons: No Have you been hit, kicked, punched, or otherwise hurt by someone within the past year? If so, by whom?: No Are you DNR?: No Advance Directives: No Advance Directives Information Provided: Yes Patient : No FDLMP: 09/07/24 service: No Current occupational status: unemployed Gender identity: Female Meds Allergies Allergy/AdvReac Type Severity Reaction Status Date / Time ibuprofen Allergy Mild Gastrointestinal Verified 09/16/24 09:31 Upset Iodinated Contrast Media Allergy Swelling Verified 09/16/24 09:31 shellfish derived Allergy Unknown Verified 09/16/24 09:31 Home Medications ?Medication ?Instructions ?Recorded ?Confirmed ?Last Taken ?Type cetirizine 10 mg tablet 1 tab PO BEDTIME PRN Allergy 10/29/20 09/16/24 2 Days Ago History Symptoms ~06/22/22 albuterol sulfate 90 mcg/actuation 1 puff PO Q4-6H PRN Shortness Of 07/20/21 09/16/24 Unknown History aerosol inhaler (ProAir HFA) Breath Or Wheezing sumatriptan succinate 50 mg tablet 50 mg PO Q2H PRN Migraine Headache 07/20/21 09/16/24 Unknown History hydroxyzine HCl 25 mg tablet 1 tab PO Q8-10H PRN panic attack 06/24/22 09/16/24 Unknown History metoprolol tartrate 25 mg tablet 1 tab PO BID 06/24/22 09/16/24 2 Days Ago History ~06/22/22 verapamil 40 mg tablet 40 mg PO BEDTIME 06/16/24 09/16/24 Unknown History ergocalciferol (vitamin D2) 1,250 1,250 mcg PO QWEEK 09/12/24 09/16/24 Unknown History mcg (50,000 unit) capsule (Vitamin D2) escitalopram oxalate 10 mg tablet 15 mg PO DAILY 09/12/24 09/16/24 Unknown History sennosides 8.6 mg tablet (senna) 17.2 mg PO BEDTIME PRN Constipation 09/12/24 09/16/24 Unknown History valacyclovir 1 gram tablet 1,000 mg PO BID 09/12/24 09/16/24 Unknown History Exam Airway Mallampati Class: II TM Dist: >3cm Neck ROM: Full Assessment and Plan Assessment Anesthesia Assessment: Anesthesia Plan Discussed Final Anesthetic Review NPO: Yes ASA Class: II Final Preanesthetic Review: No Changes in Pt Med Stat, Meds/Allgs Chart Reviewed, Consent Obtained/Reviewed, Anes Risks/Benef Reviewed and DNR Form (If Appl.) Patient Risk: Low Procedure Risk: Low Anesthetic Plan Anesthetic Plan: TIVA Disposition: Standard PACU
--- NOTE | 2024-09-16 09:32 | P.HPSUR_ITS ---
Pre-Procedural Eval Section A - 24 Hr Update-Section A only Date of Service: 09/16/24 Section B - Complete if H&P > 30 days Chief Complaint: Gastro-esophageal reflux disease without esophagit Relevant Family History (Specify if Yes): No Relevant Social History: None Present Medications: see Short Stay Collaborative assessment Medical History: Significant History (History of cardioversion GERD (gastroes ophageal reflux disease) Obesity Depression PAF (paroxysmal atrial fibrillation) Palpitations COVID Migraine Panic attack Anxiety Asthma) History of Previous Operations: Relevant previous surgery/procedure and date(s) (History of esophagogastroduodenoscopy (EGD) H/O umbilical hernia repair (07/23/23) H/O dilation and curettage) Allergies: Allergies Allergy/AdvReac Type Severity Reaction Status Date / Time ibuprofen Allergy Mild Gastrointestinal Verified 09/16/24 09:31 Upset Iodinated Contrast Media Allergy Swelling Verified 09/16/24 09:31 shellfish derived Allergy Unknown Verified 09/16/24 09:31 Review of Systems Sugical H&P ROS: Negative: Constitution, Cardiovascular, Respiratory, Neurological, Psychiatric, Hem-Onc, Allergic/Immunologic, Gastrointestinal, Genitourinary, Musculoskeletal, Integumentary, Endocrine and Eyes/Ears/Nos e/Throat Exam Surgical H&P Exam: Normal: HEENT, Normal: Heart, Normal: Lungs, Normal: Extremities, Normal: Abdomen, Normal: Skin and Normal: Neurological Plan Diagnosis/Plan: Unchanged I have reviewed the history and physical and performed a pertinent physical examination on my patient. No changes have occurred unless specified. Time Spent With Patient Time: Total time managing care of this patient today ____ minutes.
[2024-09-16 09:37] LABS: UPreg QC Valid YES; Urine Pregnancy NEGATIVE (NEGATIVE)
[2024-09-16 09:43] VITALS: BP 130/90; PULSE 85; RESP 14; TEMP 36.6; O2SAT 98; BMI 30.5
[2024-09-16] MEDS: Lactated Ringers 1,000 ML 100 ML IVCONT (09:59)
--- NOTE | 2024-09-16 10:40 | W.PM.OPN ---
Operative Note Operative Note Date of Service: 09/16/24 Narrative: Procedure Description: EGD Indication: epigastric pain Anesthesia: MAC FLEXIBLE TRANSORAL UPPER GASTROINTESTINAL ENDOSCOPY UPPER ENDOSCOPY Consent: Indications for the procedure and potential complications of bleeding, perforation, reaction to medications and missed diagnosis were discussed with the patient and informed consent was obtained. Instrument: Olympus GIF H 190 J mid size upper endoscope Monitoring: Vital signs and clinical assessment, continuous EKG monitoring, Pulse oximetry, Carbon Dioxide monitoring and blood pressure monitoring were done throughout the procedure. Procedure: The patient was placed in the left lateral decubitis position and pre-procedure medications were administered and a bite block was placed. The endoscope was inserted into the mouth and advanced under direct vision to the third part of duodenum. A careful inspection was made as the upper endoscope was withdrawn including a retroflexed examination of the proximal stomach; Findings and interventions are described below. Findings: Larynx:normal Esophagus: GE junction at 36 cm, diaphragm hiatus at 36 cm, midl esophagitis noted at GEJ, bx taken as well as from distal and proximal areas Stomach: patchy erythema and mild atrophy . Biopsies were obtained. Grade 2 flap valve on retroflexed examination of the cardia. Duodenum: mild duodenitis - bx taken Intervention: Biopsies as noted above, Impression/Findings: gastritis duodenitis esophagitis PLAN: await bx GERD precautions
[2024-09-16 10:46] VITALS: BP 121/86; PULSE 90; RESP 16; TEMP 37; O2SAT 100
[2024-09-16 11:01] VITALS: BP 117/74; PULSE 77; RESP 16; TEMP 37; O2SAT 100
== END 2024-09-16 11:38 | disposition home or self-care (01) ==
PROVIDERS: Nurse Practitioner; PCP Registered Nurse; Visit Provider Internal Medicine Gastroenterology
PROC: 0DJ08ZZ Inspection of Upper Intestinal Tract, Via Natural or Artificial Opening Endoscopic (ICD-10-PCS; CPT 43235; principal; 2024-09-16 10:40)
DX: K20.80 Other esophagitis without bleeding (principal); K29.80 Duodenitis without bleeding; K29.60 Other gastritis without bleeding; K21.9 Gastro-esophageal reflux disease without esophagitis; K58.1 Irritable bowel syndrome with constipation; D64.9 Anemia, unspecified; I48.0 Paroxysmal atrial fibrillation; J45.909 Unspecified asthma, uncomplicated; E66.9 Obesity, unspecified; Z68.31 Body mass index [BMI] 31.0-31.9, adult; Z87.891 Personal history of nicotine dependence; Z79.899 Other long term (current) drug therapy
CPT/HCPCS: 43239; 81025; 88305; 88313; 88342; J2003; J2704

== ENCOUNTER → 2024-09-16 09:18 | Outpatient (BNV) | payer MEDICAID, SELFPAY | PROVIDERS: PCP Registered Nurse; Visit Provider Internal Medicine Gastroenterology | DX: K21.00 Gastro-esophageal reflux disease with esophagitis, without bleeding (principal); K29.70 Gastritis, unspecified, without bleeding; K29.80 Duodenitis without bleeding | CPT/HCPCS: 43239 ==

== ENCOUNTER 2024-10-14 15:26 | Outpatient (AMB) | payer MEDICAID, SELFPAY ==
[2024-10-14 15:36] VITALS: BP 128/78; PULSE 78; O2SAT 98; BMI 30.3
--- NOTE | 2024-10-14 15:36 | MHC.OFFVIS ---
Vital Signs 10/14/24 15:36 Height 5 ft 3 in Weight 171 lb BMI 30.3 BP 128/78 Blood Pressure Location Rt brachial Position Sitting Pulse 78 Pulse Source Pulse Oximeter Pulse Oximetry (%) 98 Oxygen Delivery Method Room Air Intake Visit Reasons: S/P EGD; Rodrigues Intake Note: ESTABLISHED PATIENT for mgmt of chronic abd pain. S/P EGD Changes/concerns? Pt denies any GI sx or concerns at this time. Pt is here to review results of EGD. Pt is complaining of migraine headache at this time. Pt was given icepack per their request and the lighting of the room was turned to low to assist in alleviating photosensitivity. Biologist Required: No Accompanied by: Self / Same As Patient Allergies ibuprofen Allergy (Mild, Verified 10/14/24 15:36) Gastrointestinal Upset Iodinated Contrast Media Allergy (Verified 10/14/24 15:36) Swelling shellfish derived Allergy (Verified 10/14/24 15:36) Unknown HPI HPI S/P EGD; Rodrigues: Details: LAST VISIT GERD (gastroesophageal reflux disease) Abdominal pain IBS (irritable bowel syndrome) Constipation Nausea Postprandial epigastric pain Plan Patient will take famotidine twice a day and will return for H pylori testing with the nurse. Upper endoscopy is scheduled for September 16. Awaiting for notes from typesetters printer for clearance and risk stratification before procedure. Patient denies any issues with anesthesia in the past. If positive for H pylori will treat empirically. I will see patient after the procedure, sooner on as needed basis. She is agreeable to this plan and verbalizes understanding of instructions. She was given the opportunity to ask questions and all questions answered. ? Thank you for allowing me to participate in her care Orders Orders H Pylori Breath Test 09/03/24 K21.9 UPPER ENDOSCOPY Findings: Larynx:normal Esophagus: GE junction at 36 cm, diaphragm hiatus at 36 cm, midl esophagitis noted at GEJ, bx taken as well as from distal and proximal areas Stomach: patchy erythema and mild atrophy . Biopsies were obtained. Grade 2 flap valve on retroflexed examination of the cardia. Duodenum: mild duodenitis - bx taken Intervention: Biopsies as noted above, Impression/Findings: gastritis duodenitis esophagitis PLAN: await bx GERD precautions PATHOLOGY: Diagnosis A. Duodenum, biopsy: Duodenal mucosa with preserved villi and no specific change. B. Stomach, biopsy: Chronic Helicobacter gastritis with mild-moderate activity; negative for intestinal metaplasia and dysplasia. C. Gastroesophageal junction, biopsy: Squamous mucosa with no specific change; no columnar mucosa present. D. Esophagus, distal, biopsy: Squamous mucosa with no specific change; no columnar mucosa present. E. Esophagus, proximal, biopsy: Squamous mucosa with detached submucosal glands and no specific change; no columnar mucosa present TODAY'S VISIT Patient is here today for follow-up and to discuss upper endoscopy results. Patient denies any ill effects from anesthesia or procedure itself. Patient reports that she has been feeling fairly well except for having migraine headaches in the last couple days. Patient has been taking lansoprazole every day and states that her symptoms for the most part are suppressed. Upper endoscopy results and on biopsy results discussed with patient. [id number] active H pylori found. Patient will need to be placed on antibiotics. Patient denies any dyspepsia, dysphagia or odynophagia denies any GI concerning symptoms today. [facility] Medical History (Updated 10/14/24 @ 16:07 by Romina Chang [facility]) Helicobacter pylori (H. pylori) History of cardioversion GERD (gastroesophageal reflux disease) Obesity Depression PAF (paroxysmal atrial fibrillation) Palpitations COVID Migraine Panic attack Anxiety Asthma Surgical History History of esophagogastroduodenoscopy (EGD) H/O umbilical hernia repair (07/23/23) H/O dilation and curettage Family History Maternal Grandfather Skin cancer Paternal Grandmother Colon cancer Social History Household Members: Children Housing: Apartment Are you a primary critical care registered nurse to a significant other at home: No Do you presently have visiting nurse or other home services: No Alcohol intake: never Comment: counts correct Patient Tobacco Use Status: Former Tobacco user Tobacco use type: Cigarette Years Smoked: 15 service: No Current occupational status: unemployed Gender identity: Female Review of Systems Const Denies weight gain and Denies weight loss ENT Reports no additional complaints, Denies dysphagia and Denies odynophagia Card Reports no additional complaints Resp Reports no additional complaints GI Denies abdominal pain, Denies belching, Denies melena, Denies bloating, Denies change in bowel habits, Denies dysphagia, Denies excessive flatus, Denies dyspepsia, Denies heartburn, Denies diarrhea, Denies loose stools, Denies nausea, Denies odynophagia and Denies vomiting Musc Reports no additional complaints Neuro Reports no additional complaints Psych Reports no additional complaints Endo Reports no additional complaints Physical Exam Vital Signs: Last Vital Signs Pulse 78 10/14/24 15:36 BP 128/78 10/14/24 15:36 Pulse Ox 98 10/14/24 15:36 Oxygen Delivery Method Room Air 10/14/24 15:36 BMI result Body Mass Index 30.3 Const General: healthy appearing, no acute distress and well developed Nutritional Appearance: well nourished and obese Orientation/consciousness: patient oriented x3 Resp Effort & Inspection: normal respiratory effort, able to speak in complete sentences, no tracheal deviation and symmetric chest movement Auscultation: clear to auscultation bilaterally Cardio Rate: regular rate GI Inspection: Yes normal to inspection, No distended and Yes other (Surgical scar umbilicus) Palpation (GI): Soft to palpation, not firm, nontender and No hepatosplenomegaly present Auscultation: normal bowel sounds General: Yes no CVA tenderness Back/Spine/Pelvis Back: no CVA tenderness Skin General skin exam: elasticity normal, turgor normal and dry skin Neuro General: patient oriented x3 Psych Appearance: grossly normal Mental Status: mental status grossly normal Assessment & Plan Assessment & Plan (1) Helicobacter pylori (H. pylori): Code(s): A04.8 - Other specified bacterial intestinal infections Category: Medical (2) GERD (gastroesophageal reflux disease): Code(s): K21.9 - Gastro-esophageal reflux disease without esophagitis Qualifiers: Esophagitis presence: without esophagitis Qualified Code(s): K21.9 - Gastro-esophageal reflux disease without esophagitis (3) Abdominal pain: Code(s): R10.9 - Unspecified abdominal pain Qualifiers: Abdominal location: unspecified location Qualified Code(s): R10.9 - Unspecified abdominal pain (4) IBS (irritable bowel syndrome): Code(s): K58.9 - Irritable bowel syndrome, unspecified Qualifiers: Irritable bowel syndrome type: without diarrhea Qualified Code(s): K58.9 - Irritable bowel syndrome, unspecified (5) Constipation: Code(s): K59.00 - Constipation, unspecified Qualifiers: Constipation type: slow transit constipation Qualified Code(s): K59.01 - Slow transit constipation (6) Nausea: Code(s): R11.0 - Nausea (7) Postprandial epigastric pain: Code(s): R10.13 - Epigastric pain Plan H pylori found on biopsy. Patient will start antibiotic therapy. We will need she does for right occasional the area. Continue taking lansoprazole. Avoid dietary triggers and late night snacking. Staying upright from a 3 hours after meals discussed with patient. Increase fluid intake and activity to fried better bowel patient will return in 3 months, sooner on as needed basis. She is agreeable to this plan and verbalizes understanding of instructions. She was given the opportunity to ask questions and all questions answered. Thank you for allowing me to participate in her care. Medications: New bismuth subsalicylate 2 tabs PO QID 112 tabs 0RF diarrhea 14 days A04.8 - Other specified bacterial intestinal infections doxycycline hyclate 100 mg PO BID 28 caps 0RF 14 days ondansetron 4 mg PO Q8H PRN 20 tabs 0RF nausea and vomiting R11.0 - Nausea metronidazole 1,000 mg (2 x 500 mg) PO BID 56 tabs 0RF A04.8 - Other specified bacterial intestinal infections Coding Level of Care Code Est Pt Level 4 (62311) Complex EM visit Add On G2211 Diagnoses Helicobacter pylori (H. pylori) A04.8 Gastroesophageal reflux disease without esophagitis K21.9 Esophagitis presence: without esophagitis Abdominal pain, unspecified abdominal location R10.9 Abdominal location: unspecified location Irritable bowel syndrome without diarrhea K58.9 Irritable bowel syndrome type: without diarrhea Slow transit constipation K59.01 Constipation type: slow transit constipation Nausea R11.0 Postprandial epigastric pain R10.13 Time Spent (min) 35 Comment 25 minutes spent with patient and additional 10 minutes spent reviewing her
--- OUTSIDE RECORDS SUMMARY | 2024-10-14 16:37 | XMS_ITS | Clinical Summary ---
Author Organization [employer] Address [address] [facility] 7t [place] [address] Care Team Providers Care Documentation Manager Name Role Phone Demetria Chaparro SANDRA Primary Care Provider [phone] Allergies Active Allergy Reactions Criticality Noted Date [...] cholecalciferol VITAMIN D (Vitamin D-3) 50 MCG (1999 UT) capsule Take 1 capsule (50 mcg) by mouth Once per day. 90 capsule 3 4 Active cetirizine (ZyrTEC) 10 MG tabletIndications :Seasonal allergic rhinitis due to pollen Take 1 tablet (10 mg) by mouth Once per day. 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 Walker Continues metoprolol 25mg BID and verapamil 40mg nightly Reports well controlled while taking medications Gastritis 10/09/2023 Overview (01/21/2024): Followed by [facility] Continues on lansoprazole 30mg daily Assessment & Plan (01/21/2024 5:25 PM EDT): Plan for EGD for further eval Umbilical hernia 10/09/2023 Overview (01/21/2024): Repaired by [facility] Surgeons - Dr. Woo 07/23/23 Umbilical hernia repair with mesh Migraine without aura 05/31/2023 Overview (04/21/2024): Previously following with [facility] - Dr. Navarro Continues depakote 250mg nightly and sumatriptan PRN Previous med trials: topiramate. Did not experience therapeutic effect Assessment & Plan (04/21/2024 8:53 PM EST): -Referral to [facility] Neuro sent 04/21/24 Assessment & Plan (05/31/2023 9:57 AM EST): -Referral updated 05/31/23 Cobalamin deficiency 07/04/2022 Overview (01/21/2024): Continues on cyanocobalamin 1000 mcg capsule daily Re-check vit D level Gastroesophageal reflux disease without esophagi tis 07/04/2022 Overview (08/14/2024): Continues following with [facility] - [employer] [facility] Cont Lansoprazole Assessment & Plan (08/14/2024 [...] disorder 07/04/2022 Overview (10/15/2022): ?? Following with [facility] - weekly sessions with therapist, monthly with [...] Vit D, Vit B12 - Established with [facility] Heme/Onc Jun 2024 - Dr. Sidhu. Plan: cont PO iron w/ Vit C, cont Vit D. If counts worsen or unable to tolerate oral iron, she will be prescribed parenteral iron therapy Polyp of corpus uteri Overview (07/09/2022): -Pelvic ultrasound 01/2022 done to f/u on left ovarian cyst shows resolution of cyst, possible endometrial polyp. -Pap NIL/HPV neg, GC/Chlamydia/trichomonas neg 05/2021. -Referred to [facility] Jan 2022 Hyperplasia of endometrium determined by biopsy Assessment & Plan (01/21/2024 5:14 PM EDT): EMB 12/19/[address] Kayla Vaughn at [facility] Impression: secretory endometrium Assessment & Plan (10/15/2022 10:40 AM EDT): ?? EMB December 2021 through [facility] ?? Requested notes of latest [facility] visit, referral for follow up if needed Resolved Problems Problem Noted Date Diagnosed Date Resolved Date History of Helicobacter pylori infection 01/21/2024 09/14/2024 Assessment & Plan (01/21/2024 5:16 PM EDT): Tx by [facility] - [employer] [facility]. Unable to tolerate quadruple therapy. Initiated on Levaquin and amoxicillin Jun 2023. Acute chest wall pain 10/09/20232023 Anxiety attack [...] 01/21/2024 Depression 10/09/2023 01/21/2024 Iron deficiency anemia secdavi hou to inadequate dietary iron intake 06/04/2019 4 Encounters Date Type Department Care Team Description 09/16/2024 Orders Only GENERIC EXTERNAL DATA DEPARTMENT Provider, Generic External Data 09/12/2024 3:30 PM EDT Office Visit [facility] [address] [place] [address] Demetria Chaparro FNP Vaginal discharge (Primary Dx); Urinary tract infection symptoms 09/12/2024 Travel 09/12/2024 Telephone [facility] [address] [place] [address] Demetria Chaparro FNP nurse triage 09/05/2024 Telephone [facility] [address] [place] [address] Demetria Chaparro FNP Nurse Triage 09/03/2024 Population Health Risk Score [facility] (C3) Department [address] [place] [phone] Provider, Population Health Generic 08/13/2024 11:30 AM EST Office Visit [facility] [address] [place] [address] Demetria Chaparro FNP Chronic atrial fibrillation (CMS/HCC) (Primary Dx); Possible ; Gastroesophageal reflux disease without esophagitis; Microcytic anemia 08/13/2024 Travel 08/11/2024 Telephone [facility] [address] [place] [address] Jame Bee MA Chart Prep 07/30/2024 Telephone [facility] [address] [place] [address] Demetria Chaparro FNP July recall from Last 3 Months Immunizations Name Administration Dates Next Due Influenza Injectable Quadriv alant Preservative Free IIV4 MDCK 04/08/2019 Influenza, seasonal, injectable, preservative fr ee 04/21/2024 Tdap 03/20/2019 Family History Medical History Relation Name Comments Mental illness Father Cancer Maternal Grandfather Diabetes Maternal Grandfather Kidney disease Maternal Grandfather Asthma Mother Hypertension Mother Mental illness Mother Cardiac arrhythmia Son Relation Name Status Comments Father Maternal Grandfather Mother Son Social History Tobacco Use Types Packs/Day Years [...] 11:15 AM EDT Office Visit [facility] [address] [place] [address] Demetria Chaparro, SANDRA [address] [place] [address] Health Maintenance Due Date Last Done Comments Dental Oral Exam 1990 Dental Prophylaxis 1990 Dental X-Ray: Bitewings 1990 Dental X-Ray: Full Mouth 1990 Family Planning (PISQ) 02/19/2003 Pneumococcal Vaccine: Pediatrics (0 to 5 Years) and At-Risk Patients (6 to 49) Years) (1 of 2 - PCV) 02/19/2007 COVID-19 Vaccine ( - season) 2024 Pap Smear 05/26/2024 05/26/2021, 05/11, 05/22/2021 Alcohol/Substance Use Screening 04/21/2025 04/21/2024 Depression Screening [...] Procedure Name Priority Date/Time Associated Diagnosis Comments HEMATOXYLIN AND EOSIN STAIN Routine 09/16/2024 10:33 AM EDT HCG, QL, URINE Routine 09/16/2024 9:30 AM EDT POCT URINALYSIS DIPSTICK Routine 09/12/2024 4:18 PM EDT Urinary tract infection symptoms Vaginal discharge URINALYSIS, COMPLETE, WITH REFLEX TO CULTURE Routine 09/12/2024 4:10 PM EDT Urinary tract infection symptoms Vaginal discharge BACTERIAL VAGINOSIS PANEL Routine 09/12/2024 4:10 PM EDT Vaginal discharge CHLAMYDIA/N. GONORRHOEAE RNA, TMA, UROGENITAL Routine 09/12/2024 4:10 PM EDT Vaginal discharge HEPATITIS C VIRAL RNA, QUANTITATIVE, [...] Recently Relevant to Health Maintenance Results * Hematoxylin and Eosin Stain (09/16/2024 10:33 AM EDT) 09/16/2024 10:3 3 AM EDT 09/16/2024 11:25 AM EDT [facility] - 09/18/2024 7:37 PM EDT ----- ------- Name: Rafita Kuo ? Age/Sex: 34/F ? : 1990 Unit#: [id number] ?? Attend Dr: Best Rodrigues MD ?Re09/16/24 ?Status: DEP SDC ? Location: HO.SSS ?Disch: ? ----- ------- SPEC : [id number] ? RECD: 09/16/24 ? STATUS: ??SOUT ? REQ NUM: [id number] ? KRISTOPHER: 09/16/24-3 ? SUBM DR: Best Rodrigues MD ? ENTERED: ??09/16/24-1124 ?SP TYPE: Surgical ? OTHR DR: Demetria Chaparro DECK MOLDER ? ORDERED: ??HE Stain/15, Gross Micro L4/5, IHC, Special st. 2, H. pylori, AB/PAS ? Diagnosis ?? A. ??Duodenum, biopsy: ??Duodenal mucosa with preserved villi and no specific change. ? B. ??Stomach, biopsy: ??Chronic Helicobacter gastritis with mild-moderate activity; ?? negative for intestinal metaplasia and dysplasia. ? C. ??Gastroesophageal junction, biopsy: ??Squamous mucosa with no specific change; no ?? columnar mucosa present. ? D. ??Esophagus, distal, biopsy: ??Squamous mucosa with no specific change; no columnar ?? mucosa present. ? E. ??Esophagus, proximal, biopsy: ??Squamous mucosa with detached submucosal glands and no ?? specific change; no columnar mucosa present. ?Clinical History Pre-Op Dx: ??Abdominal pain Post-Op Dx: Duodenitis, gastritis, duodenitis ?Microscopic Description Microscopic sections reviewed. ??AB/PAS on A shows no evidence of chronic injury. Immunostain for H. pylori on B is positive. ?Controls stain appropriately. ? Material Received ?? A. Duodenal bx's ?? B. Stomach bx's ?? C. GE junction bx's ?? D. Distal esophagus bx's ?? E. Proximal esophagus bx's ? Gross Description Received in five parts. Part A: ??Received in formalin labeled ?duodenal biopsies? are 3 cassidy- pink irregular and rectangular tissue fragments ranging from less than 0.1-0.3 cm, submitted in toto in a cassette labeled A. Part B: ??Received in formalin labeled ?stomach biopsies? are 4 pale, cassidy-pink irregular and rectangular tissue fragments ranging from 0.1-0.5 cm, submitted in toto in a cassette ? CONTINUED ON NEXT PAGE ----- ------- Name: Rafita Kuo ? Age/Sex: 34/F ? : 1990 Unit#: [id number] ?? Attend Dr: Best Rodrigues MD ?Re09/16/24 ?Status: DEP SDC ? Location: HO.SSS ?Disch: ? ----- ------- SPEC : [id number] ? RECD: 09/16/24-1124 ? STATUS: ??SOUT ? REQ NUM: [id number] ? KRISTOPHER: 09/16/24-3 ? SUBM DR: Best Rodrigues MD ? ENTERED: ??09/16/24-1124 ?SP TYPE: Surgical ? OTHR DR: Demetria Chaparro DECK MOLDER ? ORDERED: ??HE Stain/15, Gross Micro L4/5, IHC, Special st. 2, H. pylori, AB/PAS ? Gross Description ?(Continued) labeled B. Part C: ??Received in formalin labeled ?GE junction biopsies (sic)? is a 0.3 cm crooks-white irregular tissue fragment, submitted in toto in a cassette labeled C. Part D: ??Received in formalin labeled distal esophagus biopsies? are 2 crooks-white irregular and rectangular tissue fragments measuring 0.1 and 0.3 cm, submitted in toto in a cassette labeled D. Part E: ??Received in formalin labeled ?proximal esophagus biopsies? are 2 crooks-white irregular tissue fragments measuring 0.25 and 0.35 cm, submitted in toto in a cassette labeled E. CEDS Special studies ordered and performed: Immunostain for H. pylori on B1; AB/PAS stain on A1. Copies To: ?? Best Rodrigues MD ?? [facility] ?? [address] ?? [place] [address] ?? [phone] ?? Demetria Chaparro DECK MOLDER ?? [address] [facility] ?? [place] [address] ?? [phone] ----- ------- Signed (signature on file) Marie Blevins 09/18/241936 ? ----- ------- ? END OF REPORT ? us Generic External Data Provider LAB BLOOD ORDERAB LES Final Result [facility] [address] [place], [place] [phone] * HCG, Qualitative, Urine (09/16/2024 9:30 AM EDT) Urine NEGATIVE NEGATIVE [facility] Comment:This test was develo ped to detect early . Falsenegative results may occur after the 5th - 7th week ofpregnancy when using this test method. If clinicallyindicated, consider a serum hCG. 09/16/2024 9:30 AM EDT 09/16/2024 9:32 AM EDT us Generic External Data Provider LAB URINE ORDERAB LES Final Result [facility] [address] [place] [phone] * (ABNORMAL) POCT Urinalysis (09/12/2024 4:18 PM [...] Date Urine 09/12/2024 4:18 PM EDT Demetria Chaparro DEC[employer]OLDER POINT OF CARE TEST ENTER/EDIT ORDERABLES Final Result * Bacterial Vaginosis (09/12/2024 4:10 PM EDT) TRICHOMONAS VAGINALIS DETECTION BY PCR NOT DETECTED Not Detect [facility] BACTERIAL VAGINOSIS DETECTION BY PCR NEGATIVE Negative [facility] Comment:The BV organism targ ets of the Xpert Xpress MVP test can becommensal in women; Xpert Xpress MVP positive results forbacterial vaginosis should be considered in conjunction withother clinical and patient information to determine thedisease status. Organisms that are not detected by the XpertXpress MVP test have also been reported to be associatedwith BV and aerobic vaginitis.The Xpert Xpress MVP test performance has not been evaluatedin patients under the age of 14. ANGELA GROUP DETECTION BY PCR NOT DETECTED Not Detect [facility] Angela glab krusei PCR NOT DETECTED Not Detect [facility] Swab Vaginal structure / Unknown 09/12/2024 4:10 PM EDT 09/12/2024 5:40 PM EDT us Demetria Chaparro DEC[employer]DER LAB MICROBIOLOGY - GENERAL ORD ERABLES Final Result [facility] [address] [place] [address] [phone] * (ABNORMAL) Urinalysis, Complete, with Reflex to Culture (09/12/2024 4:10 PM EDT) Color Urine Yellow [facility] Appearance Urine Clear [facility] PH 6.5 5.0 - 9.0 [facility] Glucose Urine UA Negative Negative mg/dL [facility] Urine Blood Small (1+)(A) Negative [facility] Specific [place] - Urine >=1.030(H) 1.005 - 1.025 [facility] Urine Protein Trace Neg-Trace mg/dL [facility] Urine Ketones Trace Negative mg/dL [facility] Nitrite Urine Negative Negative [facility] Leukocyte Esterase Urine Negative Negative [facility] RBC Urine 3-5(A) 0 - 2 /HPF [facility] Urine WBC 0-5 0 - 5 /HPF [facility] Urine Squamous Epithelial Cell 6-10 0 - 2 /HPF [facility] Urine Bacteria 1+ None Seen [facility] Hyaline Casts, Urine 0-2 0 - 2 /LPF [facility] Urine 09/12/2024 4:10 PM EDT 09/12/2024 5:40 PM EDT Narrative [facility] - 09/12/2024 6:06 PM EDT Urine, Clean Catch Demetria Chaparro [facility] URINE ORDERABLES Final Res ult [facility] [address] [place] [address] [phone] * Chlamydia/N. Gonorrhoeae RNA, TMA, Urogenitial (09/12/2024 4:10 PM EDT) CT PCR NOT DETECTED Not Detect. [facility] Comment:A not detected test result does not exclude the possibilityof infection because test results can be affected byimproper specimen collection, concurrent antibiotic therapy,or the number of organisms in the specimen which may bebelow the sensitivity of the test. As with many diagnostictests, results from the Xpert CT/NG assay should beinterpreted in conjunction with other laboratory andclinical data available to the clinician.Xpert CT/NG performance has not been evaluated in patientsless than 14 years of age. The assay should not be used forthe evaluationof suspected sexual abuse or for other medico-legalindications. Additional testing is recommended in anycircumstance when false positive or false negative resultscould lead to adverse medical, social or psychologicalconsequences. NG PCR NOT DETECTED Not Detect. [facility] Comment:A not detected test result does not exclude the possibilityof infection because test results can be affected byimproper specimen collection, concurrent antibiotic therapy,or the number of organisms in the specimen which may bebelow the sensitivity of the test. As with many diagnostictests, results from the Xpert CT/NG assay should beinterpreted in conjunction with other laboratory andclinical data available to the clinician.Xpert CT/NG performance has not been evaluated in patientsless than 14 years of age. The assay should not be used forthe evaluationof suspected sexual abuse or for other medico-legalindications. Additional testing is recommended in anycircumstance when false positive or false negative resultscould lead to adverse medical, social or psychologicalconsequences. Swab (Vaginal Swab) 09/12/2024 4:10 PM EDT 09/12/2024 5:40 PM EDT Narrative [facility] - 09/13/2024 4:33 AM EDT Vaginal Demetria Chaparro [facility] MICROBIOLOGY - GENERAL ORD ERABLES Final Result Performing Organization Address [facility] de Phone Number [facility] [address] [place] [phone] * Hepatitis C Viral RNA, Quantitative, Real-Time PCR (01/24/2024 11:05 AM EDT) Pathologist [facility] Hepatitis C Viral Load <15 NOT DETECTED NOT DETECTED IU/mL [facility] HCV Log PCR <1.18 NOT DETECTED NOT DETECTED Log IU/mL [facility] Comment:For additional infor matkeyana, please refer tohttp://education.[employer]/faq/PWG91n8(This link is being provided for informational/educational purposes only.)THIS TEST WAS PERFORMED AT:[facility] [place] [phone] WOODS MD Blood 01/24/2024 11:0 5 AM EDT 01/24/2024 2:06 PM EDT Demetria Chaparro [facility] LAB BLOOD ORDERABLES Final Res ult Performing Organization Address [facility] de Phone Number [facility] [address] [place] [phone] * HIV-1/2 Antigen and Antibodies, Fourth Generation, with Reflexes (01/24/2024 11:05 AM EDT) Pathologist [facility] HIV AB/AG Nonreactive Nonreactive [facility] Comment:HIV-1 p24 Ag and/or HIV-1/HIV-2 Ab not detected.A test result that is nonreactive does not exclude thepossibility of exposure to or infection with HIV-1 and/orHIV-2. Nonreactive results in this assay for individualswith prior exposure to HIV-1 and/or HIV-2 may be due toantigen and antibody levels that are below the limit ofdetection of this assay.The [employer] HIV Ag/Ab Combo assay result andsupplemental assay results should be interpreted inconjunction with the patient's clinical presentation,history and other laboratory results. If the results areinconsistent with clinical evidence, additional testing issuggested to confirm the result. Blood Venous blood specimen / Unknown 01/24/2024 11:05 AM EDT 01/24/2024 2:04 PM EDT Demetria Chaparro DECK MOLDER LAB BLOOD ORDERABLES Final Res ult Performing Organization Address City/[facility]/ZIP Co de Phone Number [facility] [address] [place] [phone] * Pap Smear (05/26/2021 12:00 AM EST) Swab Soniya Garcia CN LAB CYTOLOGY ORDERABLES F inal Result [address], [place] [address] * THINPREP TIS PAP AND HPV mRNA E6/E7, CT/NG, TRICH (05/22/2021 7:14 PM EST) Chlamydia trachomatis RNA, TMA, Urogenital NOT DETECTED NOT DETECTED [facility] Clinical Information: None given [facility] COMMENT SEE COMMENT [facility] Comment: The analytical performance characteristics of this assay, when used to test SurePath(TM) specimens have been determined by [facility]. The modifications have not been cleared or approved by the FDA. This assay has been validated pursuant to the CLIA regulations and is used for clinical purposes. ?? For additional information, please refer to https://education.[employer]/faq/LOY112 (This link is being provided for information/ [...] was manually screened according to routine procedures. Sprayer Machine: SEE COMMENT [facility] Comment: MAA, CT(ASCP) CT screening location: [address] ??[phone] HPV nRNA E6/E7 Not Detected Not Detected [facility] Comment: Methodology: Automotive Alignment Specialist-Mediated Amplification This assay detects E6/E7 viral messenger RNA (mRNA) from 14 high-risk HPV types (16,18,31,33,35,39,45,51,52,56,58,59,66,68). ? The analytical performance characteristics of this assay have been determined by [facility]. The modifications have not been cleared or approved by the FDA. This assay has been validated pursuant to the CLIA regulations and is used for clinical purposes. ?? For additional information, please refer to http://education.[employer]/faq/VNG464u9 (This link if provided for information/ educational purposes only.) Interpretation/Re sult: Unable to provide interpretation due to unsatisfactory specimen adequacy. [facility] LMP: NONE GIVEN [facility] Neisseria gonorrhoeae RNA, TMA, Urogenital NOT DETECTED NOT DETECTED [facility] Prev. BX: NONE GIVEN [facility] Prev. PAP: NONE GIVEN [facility] Review Sprayer Machine: SEE COMMENT [facility] Comment: GSG, CT(ASCP) CT screening location: [address] ??[address] SOURCE: None given [facility] Statement Of Adequacy: SEE COMMENT [facility] Comment: Specimen processed and examined, but unsatisfactory for evaluation due to an insufficient number of squamous cells. Partially obscuring blood Trichomonas vaginalis, QL, TMA, PAP Vial NOT DETECTED NOT DETECTED [facility] Comment: The analytical performance characteristics of this assay have been determined by [facility]. The modifications have not been cleared or approved by the FDA. This assay has been validated pursuant to the CLIA regulations and is used for clinical purposes. ?? For additional information, please refer to http://education.[employer]/ faq/Trichomonastma (This link is being provided for information/ educational purposes only.) ?? NO COLLECTION DATE RECEIVED. WE HAVE USED THE DATE THE SPECIMEN WAS RECEIVED BY THIS LABORATORY THE COLLECTION DATE. IF THIS IS INCORRECT, PLEASE CONTACT CLIENT SERVICES. PHONE NUMBER: ?? 05/22/2021 7:14 PM EST us Tiff Galdamez NP LAB PATHOLOGY ORDERABLES Final Result Performing Organization Address City/State/[facility] Co de Phone Number [facility] [address] from Last 3 Months or Most Recently Relevant to Health Maintenance Insurance [facility] C3 DENTAL-[facility] MEDICAID STAND ADULT Care Teams Documentation Manager Relationship Specialty Start Date End Date Demetria Chaparro FNP [address] [place] [phone] PCP - General Family Medicine 02/06/22
--- OUTSIDE RECORDS SUMMARY | 2024-10-14 16:37 | XMS_ITS | Encounter Summary ---
Author Organization [employer] Address [address] [facility] [address]t [place] [address] Care Team Providers Care [employer] Name Role Phone Demetria Chaparro Primary Care Provider [phone] Reason for Visit * Reason Onset Date Comments Nurse Triage 09/05/2023 Encounter Details Date Type Department Care Team ([facility] st Contact Info) Description 09/05/2023 Telephone [facility] [address] [place] [address] Demetria Chaparro FNP [address] [place] [address] Nurse Triage Social History Tobacco Use Types [...] PM EDT Triage call attempted x2 with ione Front End Wheel Loader Operator ID [id number] Pt didn't answer. Left voice message to call [facility] [phone] * Telephone Encounter - Shelby Perez - [...] Description 11/12/2024 11:15 AM EDT Office Visit [facility] [address] [place] [address] Demetria Chaparro FNP [address] [place] [address] documented as of this encounter Visit Diagnoses Not on filedocumented in this encounter Additional Health Concerns Assessment Noted Time PHQ-9 Depression Total Score: 0 10/03/19 23 9:54 AM EDT documented as of this encounter Care Teams [employer] Relationship Specialty Start Date End Date Demetria Chaparro FNP [address] [place] [address] PCP - General Family Medicine 02/06/22 documented as of this encounter
--- OUTSIDE RECORDS SUMMARY | 2024-10-14 16:37 | XMS_ITS | Encounter Summary ---
Author Organization [employer] Address [address] [facility] 7t [place] [address] Care Team Providers Care Acid Bath Mixer Name Role Phone Demetria Chaparro Primary Care Provider [phone] Reason for Visit * Reason Onset Date Comments Results 03/28/2024 Encounter Details Date Type Department Care Team ([facility] Contact Info) Description 03/28/2024 Telephone [facility] MEDICINE [address] [place] [address] Demetria Chaparro FNP [address] [place] [address] Results Social History Tobacco Use Types Packs/Day [...] results: Lab Date when done: 03/27/24 Facility: [facility] Contact pt at [phone] documented in this encounter Plan of Treatment Upcoming Encounters Date Type Department Care Team (Late st Contact Info) Description 11/12/2024 11:15 AM EDT Office Visit [facility] MEDICINE [address] [place] [address] Demetria Chaparro FNP [address] [place] [address] documented as of this encounter Visit Diagnoses Not on filedocumented in this encounter Additional Health Concerns Assessment Noted Time PHQ-9 Depression Total Score: 9 01/21/20 24 10:18 AM EDT documented as of this encounter Care Teams Acid Bath Mixer Relationship Specialty Start Date End Date Demetria Chaparro FNP [address] [place] [address] PCP - General Family Medicine 02/06/22 documented as of this encounter
--- OUTSIDE RECORDS SUMMARY | 2024-10-14 16:37 | XMS_ITS | Encounter Summary ---
Author Organization [employer] Address [address] [facility] [address] [place] [address] Care Team Providers Care Veneer Taper Name Role Phone Demetria Chaparro Primary Care Provider [phone] Reason for Visit * Reason Onset Date Comments Appointment Request 08/28/2022 Encounter Details Date Type Department Care Team ([facility] st Contact Info) Description 08/28/2022 Telephone [facility] MEDICINE [address] [place] [address] Demetria Chaparro FNP [address] [place] [address] Appointment Request Social History Tobacco Use Types [...] - 08/28/2022 4:15 PM EDT Tc from [facility] with N requesting a physical appt for pt. Please contact pt at [phone] documented in this encounter Plan of Treatment Upcoming Encounters Date Type Department Care Team (Late st Contact Info) Description 11/12/2024 11:15 AM EDT Office Visit [facility] MEDICINE [address] [place] [address] Demetria Chaparro FNP [address] [place] [address] documented as of this encounter Visit Diagnoses Not on filedocumented in this encounter Additional Health Concerns Assessment Noted Time PHQ-9 Depression Total Score: 0 07/04/19 23 11:01 AM EST documented as of this encounter Care Teams Veneer Taper Relationship Specialty Start Date End Date Demetria Chaparro FNP [address] [place] [address] PCP - General Family Medicine 02/06/22 documented as of this encounter
--- OUTSIDE RECORDS SUMMARY | 2024-10-14 16:37 | XMS_ITS | Clinical Summary ---
Author Organization [facility] Address [address] [place] [phone] Phone Care Team Providers Care Director Of Hotel Name Role Phone Physician, No Pcp Primary [...] age to complete this topic Meningococcal B Vaccine Aged Out No l onger eligible based on patient's age to complete [...] RESULTING AGENCY - 12/13/2018 2:35 PM EDT [id number] THINPREP PAP, IMAGED: NEGATIVE FOR SQUAMOUS INTRAEPITHELIAL [...] Maintenance Insurance MEDICAID - [place] Care Teams Director Of Hotel Relationship Specialty Start Date End Date Physician, No Pcp PCP - General 04/18/24
--- OUTSIDE RECORDS SUMMARY | 2024-10-14 16:37 | XMS_ITS | Clinical Summary ---
Demographics Address [address] [facility] [address] [place] [address] Home Phone Preferred Language Estonian Marital Status Adventist Affiliation Unknown Race Unknown Ethnic Group or Author Organization [facility] Address [address] [place] [address] Care Team Providers Care Shot Hole Shooter Name Role Phone Unavailable Primary Care Provider [...] Self [address] [place] [address]
--- OUTSIDE RECORDS SUMMARY | 2024-10-14 16:37 | XMS_ITS | Encounter Summary ---
Author Organization [employer] Address [address] [facility] 7 [place] [address] Care Team Providers Care Replenishment Specialist Name Role Phone Demetria Chaparro Primary Care Provider Reason for Visit * Reason Onset Date Comments ER Follow-up 11/06/2023 Encounter Details Date Type Department Care Team ([facility] Contact Info) Description 11/06/2023 Telephone [facility] MED & PEDS [address] [place], [place] [phone] Demetria Chaparor FNP [address] [place] [address] ER Follow-up Social History Tobacco Use Types [...] 11:38 AM EDT Tc to pt using [employer] Cell Maintenance [place], [place] [id number], clam bed worker unable to reach pt, left messagefor pt to call back. * Telephone Encounter - Shelby Perez - 11/06/2023 1:06 PM EDT Patient calling to report ED visit on : Date: 10/26/23 Hospital: [facility] Seen for: abdominal pain and migrans Patient advised will forward to team nurse for follow up Pt would like to get an US done . documented in this encounter Plan of Treatment Upcoming Encounters Date Type Department Care Team (Late st Contact Info) Description 11/12/2024 11:15 AM EDT Office Visit [facility] MEDICINE [address] [place] [address] Demetria Chaparro FNP [address] [place] [address] documented as of this encounter Visit Diagnoses Not on filedocumented in this encounter Additional Health Concerns Assessment Noted Time PHQ-9 Depression Total Score: 0 10/03/19 23 9:54 AM EDT documented as of this encounter Care Teams Replenishment Specialist Relationship Specialty Start Date End Date Demetria Chaparro FNP [address] [place] [address] PCP - General Family Medicine 02/06/22 documented as of this encounter
--- OUTSIDE RECORDS SUMMARY | 2024-10-14 16:37 | XMS_ITS | Encounter Summary ---
Author Organization [employer] Address [address] [facility] 7t [place] [address] Care Team Providers Care Hat And Cap Opener Name Role Phone Demetria Chaparro PULMONARY CARE NURSE Primary Care Provider [phone] Encounter Details Date Type Department Care Team ([facility] st Contact Info) Description 10/12/2023 Orders Only [facility] MED & PEDS [address] [place] [address] Trey Garcia MD [address] [place] [address] Acute cystitis with hematuria (Primary Dx) Social [...] 11:15 AM EDT Office Visit [facility] MEDICINE [address] [place] [address] Demetria Chaparro FNP [address] [place] [address] documented as of this encounter Visit Diagnoses Diagnosis Acute cystitis with hematuria- Primary documented in this encounter Additional Health Concerns Assessment Noted Time PHQ-9 Depression Total Score: 0 10/03/19 23 9:54 AM EDT documented as of this encounter Care Teams Hat And Cap Opener Relationship Specialty Start Date End Date Demetria Chaparro FNP [address] [place] [address] PCP - General Family Medicine 02/06/22 documented as of this encounter
== END 2024-10-14 16:07 | disposition home or self-care (01) ==
LOC: HO.HGI 15:26
PROVIDERS: PCP Registered Nurse; Visit Provider Nurse Practitioner Family
DX: A04.8 Other specified bacterial intestinal infections (principal); K21.9 Gastro-esophageal reflux disease without esophagitis; R10.9 Unspecified abdominal pain; K58.9 Irritable bowel syndrome, unspecified; K59.01 Slow transit constipation; R11.0 Nausea; R10.13 Epigastric pain
CPT/HCPCS: 99214

== ENCOUNTER → 2024-10-14 15:26 | Outpatient (BNVA) | payer MEDICAID, SELFPAY | PROVIDERS: PCP Registered Nurse; Visit Provider Nurse Practitioner Family | DX: A04.8 Other specified bacterial intestinal infections (principal); K21.9 Gastro-esophageal reflux disease without esophagitis; K58.9 Irritable bowel syndrome, unspecified; K59.01 Slow transit constipation; R10.9 Unspecified abdominal pain | CPT/HCPCS: 99212 ==

== ENCOUNTER 2024-12-18 14:08 | Outpatient (REF) | payer MEDICAID, SELFPAY ==
--- OUTSIDE RECORDS SUMMARY | 2024-12-18 14:19 | XMS_ITS | Clinical Summary ---
Demographics Address [address] [facility] [address] [place] [address] Home Phone Preferred Language Northern Irish Marital Status Scientologist Affiliation Unknown Race Unknown Ethnic Group or Author Organization [facility] [facility] Address [address] [place] [address] Care Team Providers Care Gas Pumping Station Supervisor Name Role Phone Unavailable Primary Care Provider [...] 90 06/03/2019 10:21 AM EST Temperature 36.9 C (98.4 F) 06/03/2019 10:21 AM EST Respiratory Rate - - Oxygen Saturation - [...] (P ap Smear) 02/19/2009 Influenza Vaccine (#1) 2025 04/08/2019 DTap / Tdap / Td (2 - Td or Tdap) 03/20/2029 019 RSV Ped < 20 months Aged Out No longe r eligible based on patient's age to complete this topic Guarantor Name Account Type Relation to Patient Date of Phone Billing Address Rey Kuobrittney Personal/Family Self [address] [place] [address]
--- OUTSIDE RECORDS SUMMARY | 2024-12-18 14:19 | XMS_ITS | Encounter Summary ---
Author Organization [employer] Address [address] [facility] [address] [place] [address] Care Team Providers Care Rheumatology Nurse Name Role Phone Demetria Chaparro Primary Care Provider [phone] Erin Thibodeaux RN Unavailable [phone] Nessa Gutierrez Unavailable Reason for Visit * Reason Onset Date Comments Results 03/28/2024 Encounter Details Date Type Department Care Team (Late st Contact Info) Description 03/28/2024 Telephone [facility] MEDICINE [address] [place] [address] Demetria Chaparro FNP [address] [place], [place] [phone] Results Social History Tobacco Use Types Packs/Day [...] results: Lab Date when done: 03/27/24 Facility: [facility] Contact pt at [phone] documented in this encounter Plan of Treatment Not on file documented as of this encounter Visit Diagnoses Not on filedocumented in this encounter Additional Health Concerns Assessment Noted Time PHQ-9 Depression Total Score: 9 01/21/20 24 10:18 AM EDT documented as of this encounter Care Teams Rheumatology Nurse Relationship Specialty Start Date End Date Demetria Chaparro FNP [address] [place] [address] PCP - General Family Medicine 02/06/22 Erin Thibodeaux, REID [address] [place] [address] Registered Nurse Family Medicine 10/21/24 11/13/24 Nessa Gutierrez 10/21/24 Britany Childers RoastermanSteel Box Toe Inserter 11/12/24 documented as of this encounter
--- OUTSIDE RECORDS SUMMARY | 2024-12-18 14:19 | XMS_ITS | Clinical Summary ---
Author Organization [facility] Address [address] [place] [phone] Phone Care Team Providers Care Generator Switchboard Operator Name Role Phone Physician, No Pcp Primary [...] 66 05/12/2024 2:33 PM EST Temperature 36.3 C (97.3 F) 05/12/2024 1:22 PM EST Respiratory Rate 18 05/12/2024 2:33 PM EST [...] 5 Years) and At-Risk Patients (6 to 49 Years) (1 of 2 - PCV) 02/19/2007 Hepatitis C Screening 05/14/2022 Social Influencers of Health Screening 05/14/2022 COVID-19 Vaccine ( - 2023-2 5 season) 2024 Cervical Cancer Screening: P ap Smear 05/26/2024 05/26/2021, 12/05/2018 Influenza Vaccine (#1) 2025 , 04/08/2019 Depression Screening 04/21/2025 04/21/2024 Cholesterol Screening (Lipid Panel) 01/23/2029 01/24/2024 DTaP,Tdap,and Td Vaccines (2 - Td or Tdap) 03/20/2029 03/20/2019 HIV Screening Completed 01/24/2024, 11/29/2023 HIB Vaccines Aged Out No longer eligi [...] RESULTING AGENCY - 12/13/2018 2:35 PM EDT [id number] THINPREP PAP, IMAGED: NEGATIVE FOR SQUAMOUS INTRAEPITHELIAL LESION AND MALIGNANCY . REACTIVE CELLULAR CHANGES. MELANY BATEMAN(ASCP) (CASE SCREENED 12 11 2018) JATIN GANN M.D. , PATHOLOGIST (CASE ELECTRONICALLY SIGNED 12 13 2018) RESULT OF APTIMA HIGH RISK HPV ASSAY: HIGH RISK HPV: NEGATIVE (SEROTYPES 16,18,31,33,35,39,45,51,52,56,58,59,66,68) COMPLETED ON 2018-12-10 ADEQUACY: SATISFACTORY ENDOCERVICAL/TRANSFORMATION ZONE COMPONENT PRESENT. SOURCE: THINPREP PAP HPV ANY DX: REFLEX 16 AND 18, CERVICAL, IMAGED CLINICAL INFORMATION: HPV ANY DIAGNOSIS. Z12.4, Z34.81, , LMP 09/11/2018 No Arias CN LAB CYTOLOGY ORDERABLES Final Result HISTORICAL TESTING LAB RESULTING AGENCY from Last 3 Months or Most Recently Relevant to Health Maintenance Insurance MEDICAID - [place] Member Subscriber Plan / Payer (Ef fective 2024-Present) Name:Rafita Kuo Relation to Subscriber:Self Name:Rafita Kuo Payer ID:[id number] Group ID:Not on file Type:Not on file Address: [facility] [employer] [facility] ATTN:[employer] [address] [place] [address] Care Teams Generator Switchboard Operator Relationship Specialty Start Date End Date Physician, No Pcp PCP - General 04/18/24
== END 2024-12-18 14:09 | disposition home or self-care (01) ==
LOC: HO.CHCLDS 14:08
PROVIDERS: Visit Provider Registered Nurse
DX: Z32.00 Encounter for pregnancy test, result unknown (principal); N92.6 Irregular menstruation, unspecified
CPT/HCPCS: 36415; 84702

== ENCOUNTER 2024-12-28 22:16 | Emergency (ER) | payer MEDICAID, SELFPAY ==
--- NOTE | 2024-12-28 | ECG_ITS ---
Test Reason : CHEST PAIN Blood Pressure : */* mmHG Vent. Rate : 64 BPM Atrial Rate : 64 BPM P-R Int : 120 ms QRS Dur : 88 ms QT Int : 408 ms P-R-T Axes : 53 35 56 degrees QTcB Int : 420 ms Normal sinus rhythm with sinus arrhythmia Nonspecific T wave abnormality Abnormal ECG When compared with ECG of 04-Apr-2023 20:38, Nonspecific T wave abnormality now evident in Anterior leads Referred By: Generic ED Physician Electronically Signed By: Shahzad Coleman
--- NOTE | ~2024-12-28 | XR_ITS ---
CLINICAL HISTORY: chest pain 2 view chest x-ray Comparison: None provided Findings: Normal size heart. no consolidation, pleural effusion or pneumothorax. No acute fracture. IMPRESSION: 1. No acute findings. This document has been electronically signed by: Emiliana Merrill MD on 12/28/2024 23:36:46
[2024-12-28 22:27] VITALS: BP 131/92; PULSE 64; RESP 20; TEMP 36.6; O2SAT 100; BMI 30.1
[2024-12-28 22:31] LABS: MANUAL DIFF FLAG NO
[2024-12-28 22:32] LABS: Hematocrit 37.1 % (37.0-47.0); Hemoglobin 11.9 g/dl (12.0-16.0); Imm Gran Abs Auto 0.02 X10*3/uL (0.00-0.03); Imm Gran Pct Auto 0.3 % (0.0-0.4); Lymphocytes Absolute Auto 2.7 X10*3/uL (1.2-4.9); Mean Corpuscular HGB Conc 32.1 g/dl (31.0-35.0); Mean Corpuscular Hemoglobin 24.5 pg (27.0-33.0); Mean Corpuscular Volume 76.3 fL (80.0-98.0); NRBC Abs Auto 0.000 X10*3/uL (0.0-0.012); NRBC Pct Auto 0.0 /100WBC (0.0-0.2); Platelet Count 368 X10*3/uL (160-400); Red Blood Count 4.86 X10*6/uL (4.20-5.50); White Blood Count 7.1 X10*3/uL (4.8-10.8)
[2024-12-28 22:51] LABS: Alanine Aminotransferase 26 U/L (0-31); Albumin Level 4.3 g/dL (3.5-5.0); Alkaline Phosphatase 69 U/L (39-117); Anion Gap 11 (12-20); Aspartate Amino Transferase 25 U/L (5-31); Blood Urea Nitrogen 9 mg/dL (9-16); Calcium 9.2 mg/dL (8.4-10.2); Carbon Dioxide 24 mmol/L (22-29); Chloride 111 mmol/L (96-108); Creatinine Clr Calc Pharmacy 101.9; Estimated Glomerular Filt Rate > 60; Potassium 3.6 mmol/L (3.3-5.1); Sodium 142 mmol/L (135-145); Total Protein 7.2 g/dL (6.5-8.0)
[2024-12-28 22:53] LABS: Troponin-I High Sensitivity < 2.7 ng/L (<3.5-17.0)
--- NOTE | 2024-12-28 23:09 | ED_ITS ---
HPI - Chest Pain General Chief Complaint: Chest Pain Stated Complaint: chest pain, lt arm tingling Time Seen by Provider: 12/28/24 23:09 Source: patient Mode of arrival: ambulatory Limitations: no limitations History of Present Illness ED Provider: HPI narrative: 34-year-old woman presenting with midsternal chest pain states that radiate than her left arm started earlier today she states that she has a very active day with the family, no drug or alcohol use, no fevers or chills no hemoptysis no recent surgeries. No nausea no vomiting no diaphoresis associated with this. Related Data Home Medications ?Medication ?Instructions ?Recorded ?Confirmed cetirizine 10 mg tablet 1 tab PO BEDTIME PRN Allergy 10/29/20 09/16/24 Symptoms albuterol sulfate 90 mcg/actuation 1 puff PO Q4-6H PRN Shortness Of 07/20/21 09/16/24 aerosol inhaler (ProAir HFA) Breath Or Wheezing sumatriptan succinate 50 mg tablet 50 mg PO Q2H PRN Mi graine Headache 07/20/21 09/16/24 hydroxyzine HCl 25 mg tablet 1 tab PO Q8-10H PRN panic attack 06/24/22 09/16/24 metoprolol tartrate 25 mg tablet 1 tab PO BID 06/24/22 09/16/24 verapamil 40 mg tablet 40 mg PO BEDTIME 06/16/24 ergocalciferol (vitamin D2) 1,250 1,250 mcg PO QWEEK 0 09/12/24 09/16/24 mcg (50,000 unit) capsule (Vitamin D2) escitalopram oxalate 10 mg tablet 15 mg PO DAILY 09/1209/16/24 sennosides 8.6 mg tablet (senna) 17.2 mg PO BEDTIME WI N Constipation 09/12/24 09/16/24 valacyclovir 1 gram tablet 1,000 mg PO BID 09/12/24 Previous Rx's ?Medication ?Instructions ?Recorded lansoprazole 30 mg capsule,delayed 30 mg PO DAILY #90 caps 06/16/24 release cyanocobalamin (vitamin B-12) 1 tab PO DAILY #90 tabs 06/26/24 1,000 mcg tablet bismuth subsalicylate 262 mg 2 tab PO QID diarrhea 14 days #112 05/06/25 chewable tablet tabs doxycycline hyclate 100 mg capsule 100 mg PO BID 14 da ys #28 caps 10/14/24 metronidazole 500 mg tablet 1,000 mg (2 x 500 mg) PO B ID #56 10/14/24 tabs ondansetron 4 mg disintegrating 4 mg PO Q8H PRN nausea and 10/14/24 tablet vomiting #20 tabs Allergies Allergy/AdvReac Type Severity Reaction Status Date / Time ibuprofen Allergy Mild Gastrointestinal Verified 12/28/24 22:28 Upset Iodinated Contrast Media Allergy Swelling Verified 12/28/24 22:28 shellfish derived Allergy Unknown Verified 12/28/24 22:28 Review of Systems 2 Constitutional: Constitutional: Reports as per [facility] Past Medical History Medical History Helicobacter pylori (H. pylori) History of cardioversion GERD (gastroesophageal reflux disease) Obesity Depression PAF (paroxysmal atrial fibrillation) Palpitations COVID Migraine Panic attack Anxiety Asthma Surgical History History of esophagogastroduodenoscopy (EGD) H/O umbilical hernia repair (07/23/23) H/O dilation and curettage Family History Family History Maternal Grandfather Skin cancer Paternal Grandmother Colon cancer Social History Social History Household Members: Children Housing: Apartment Are you a primary career development consultant to a significant other at home: No Do you presently have visiting nurse or other home services: No Alcohol intake: never Comment: counts correct Patient Tobacco Use Status: Former Tobacco user Tobacco use type: Cigarette Years Smoked: 15 Advance Directives: No Advance Directives Information Provided: No service: No Current occupational status: unemployed Gender identity: Female Physical Exam 2 Vital Signs: Vital Signs: Last Vital Signs Temp 97.8 F 12/28/24 22:27 Pulse 64 12/28/24 22:27 Resp 20 12/28/24 22:27 BP 131/92 H 12/28/24 22:27 Pulse Ox 100 12/28/24 22:27 O2 Del Method Room Air 12/28/24 22:27 BMI result Body Mass Index 30.1 Const: Other: * Gen: ?Overall well-appearing patient * HEENT: PERRLA, EOMI, MMM, * Neck: Supple, no LAD * CV: RRR, no obvious murmurs appreciated, chest wall tenderness reproducing her symptoms radial pulses +2 bilaterally * Resp: ?No wheezing rales rhonchi no stridor moving air well * Abd: ?Bowel sounds are present, no tenderness no rebound no rigidity * MSK: FROM, strength 5/5 all extremities * Skin: Warm, dry, intact, * Neuro: ?Alert and oriented x3, moving upper and lower extremities symmetrically, no obvious facial asymmetry noted Medications Administered Discontinued Medications Generic Name Dose Route Start Last Admin Trade Name Freq PRN Reason Stop Dose Admin Acetaminophen 975 mg 12/28/24 23:15 12/28/24 23:33 Acetaminophen 325 Mg Tablet PO 12/28/24 23:16 975 mg ONCE ONE Administration Ketorolac Tromethamine 15 mg 12/28/24 23:15 12/28/24 23:35 Ketorolac Tromethamine 15 Mg/Ml Vial IM 12/28/24 23:16 15 mg ONCE ONE Administration Medical Decision Making Medical Decision Making MDM Narrative: Consideration for workup as below she does have history of hypertension, prior history of paroxysmal AFib, ECG today without ongoing AFib, no hypoxia tachycardic to suspect PE, PERC negative Chest x-ray we will be obtained to evaluate for pneumonia, new, has not had any forceful vomiting to suspect Boerhaave syndrome, other considerations include myocarditis,, ECG without any changes to suspect underlying ACS cardiac enzymes unremarkable Differential Diagnosis Differential Diagnoses: The differential diagnosis associated with the presentation includes ACS, pneumothorax, aortic dissection, PE, Boerhaave syndrome Admission/Observation Consideration of admission/observation: Escalation of care including admission/observation considered 2022 Emergency Medicine Coding Guide from [email or web address] on 12/28/2024 All calculations should be rechecked by clinician prior to use RESULT SUMMARY: 4 Estimated Level of Service Problems: Moderate (4) Risk: Moderate (4) Data: Extensive (5) NARRATIVE MDM: This patient's problem complexity is Moderate as patient: has a new undiagnosed problem with uncertain prognosis but that could be serious. This patient's risk is Moderate due to: overall presentation requiring evaluation for a potentially Moderate-risk process. This patient's data complexity is Extensive due to: -multiple tests ordered/reviewed -independent interpretation of imaging or EKG INPUTS: Number and Complexity ?> 5 = 4: undiagnosed new problem, uncertain outcome (e) Risk level ?> 3 = Moderate Tests ordered ?> 3 = =3 Tests results reviewed (excluding labs) ?> 2 = 2 Prior external notes reviewed ?> 0 = 0 Assessment requiring and independent historian ?> 0 = No Independent interpretation of tests ?> 1 = Yes Discussed management/test interpretation w/external professional ?> 0 = No Lab Data MDM Lab Attestation statement: I reviewed the patient's lab results. 12/28/24 22:27 12/28/24 22:27 Labs: Lab Results 12/28/24 Range/Units 22:27 WBC 7.1 (4.8-10.8) X10*3/uL RBC 4.86 (4.20-5.50) X10*6/uL Hgb 11.9 L (12.0-16.0) g/dl Hct 37.1 (37.0-47.0) % MCV 76.3 L (80.0-98.0) fL MCH 24.5 L (27.0-33.0) pg MCHC 32.1 (31.0-35.0) g/dl RDW 16.7 H (11.0-16.0) % Plt Count 368 (160-400) X10*3/uL MPV 9.9 (9.4-12.3) fL Immature Gran % (Auto) 0.3 (0.0-0.4) % Neut % (Auto) 53.4 (45-73) % Lymph % (Auto) 37.7 (20-40) % Treasure % (Auto) 6.2 (2-11) % Eos % (Auto) 1.8 (0-4) % Baso % (Auto) 0.6 (0-2) % Lymph # (Auto) 2.7 (1.2-4.9) X10*3/uL Treasure # (Auto) 0.4 (0.1-1.2) X10*3/uL Eos # (Auto) 0.1 (0.0-0.4) X10*3/uL Baso # (Auto) 0.0 (0.0-0.2) X10*3/uL Abs Immat Gran (auto) 0.02 (0.00-0.03) X10*3/uL Absolute Neuts (auto) 3.8 (2.0-8.3) x10*3/uL Absolute Nucleated RBC 0.000 (0.0-0.012) X10*3/uL Nucleated RBC % (auto) 0.0 (0.0-0.2) /100WBC Sodium 142 (135-145) mmol/L Potassium 3.6 (3.3-5.1) mmol/L Chloride 111 H (96-108) mmol/L Carbon Dioxide 24 (22-29) mmol/L Anion Gap 11 L (12-20) BUN 9 (9-16) mg/dL Creatinine 0.75 (0.5-1.4) mg/dL Estim Creat Clear Calc 101.9 Estimated GFR > 60 Random Glucose 104 (60-115) mg/dL Calcium 9.2 (8.4-10.2) mg/dL Total Bilirubin 0.4 (0.0-1.0) mg/dL AST 25 (5-31) U/L ALT 26 (0-31) U/L Alkaline Phosphatase 69 (39-117) U/L Troponin I High Sens < 2.7 (<3.5-17.0) ng/L Total Protein 7.2 (6.5-8.0) g/dL Albumin 4.3 (3.5-5.0) g/dL Beta HCG, Quant < 2 mIU/mL Independent Interpretation I performed an independent interpretation of an: EKG (64 beats per minute otherwise normal ECG without dysrhythmia, AV vanita blocks or ST-T changes to suspect underlying ACS, my independent interpretation) and Plain X-Ray (My independent chest xray interpretation: Lungs: Lungs are clear bilaterally without evidence of focal consolidation, pleural effusion, or pneumothorax. Cardiac silhouette is unremarkable, no obvious mediastinal widening, no obvious bony abnormalities such as fractures. Impression: Normal chest X-r) Radiology Impression Discussion of test interpretation with radiology: I have reviewed the radiologist's reading. Chronic Conditions Patient?s care impacted by: Hypertension Discharge Plan Discharge Clinical Impression: Chest pain, precordial Patient Disposition: Home, Self-Care Instructions: Chest Pain (ED) Additional Instructions: Diagnosis and Initial Evaluation: You have been evaluated in the Emergency Department (ED) for chest pain. Based on your clinical assessment, electrocardiogram (ECG), and high-sensitivity cardiac troponin (hs-cTn) levels, you have been classified as low-risk for acute coronary syndrome (ACS) and myocardial infarction (PR). This means that your likelihood of having a heart attack or other serious heart condition in the next 30 days is very low. Based on your physical examination your workup today I suspect your symptoms are caused by costochondritis which is inflammation of the ribcage, please see my discharge instructions as below, you can take ibuprofen 400 mg every 6 hours around the clock for this pain the next 2 days, your test came back negative Follow-Up Care: ? Primary Care Provider (PCP) or Starting Gate Driver: It is important to follow up with your primary care provider or manager department within the next 14 to 30 days. This follow-up is crucial to ensure that any underlying conditions are managed appropriately and to discuss any further testing that may be needed. ? Notification: If you have an established PCP or manager department, they have been notified of your ED visit to facilitate continuity of care. Self-Care and Monitoring: ? Medications: Continue taking any prescribed medications as directed. If you have been given new medications, ensure you understand how and when to take them. ? Activity: Resume normal activities as tolerated. Avoid strenuous activities until you have discussed them with your healthcare provider. ? Diet: Maintain a heart-healthy diet, low in saturated fats, cholesterol, and sodium. Red Flags: Seek immediate medical attention if you experience any of the following: ? New or worsening chest pain ? Shortness of breath ? Dizziness or fainting ? Pain radiating to your arm, neck, or jaw ? Sweating, nausea, or vomiting Additional Testing: In some cases, outpatient testing such as a stress test or imaging may be recommended to further evaluate your heart health. Your follow-up provider will discuss this with you if necessary. Mental Health: Anxiety and stress can contribute to chest pain. Consider discussing any concerns with your healthcare provider, who may recommend screening for anxiety or depression and appropriate management strategies. Contact Information: If you have any questions or concerns before your follow-up appointment, please contact your healthcare provider or the ED where you were evaluated. Summary: You have been discharged from the ED with a low risk of serious heart conditions. Follow the instructions above, attend your follow-up appointments, and seek immediate care if you experience any red flags. Prescriptions: No Action cetirizine 10 mg tablet 1 tab PO BEDTIME PRN (Reason: Allergy Symptoms) hydroxyzine HCl 25 mg tablet 1 tab PO Q8-10H PRN (Reason: panic attack) metoprolol tartrate 25 mg tablet 1 tab PO BID Rx Instructions: take with food sumatriptan succinate 50 mg tablet 50 mg PO Q2H PRN (Reason: Migraine Headache) Rx Instructions: MAX DOSE 200MG / 24 HOURS albuterol sulfate [ProAir HFA] 90 mcg/actuation HFA aerosol inhaler 1 puff PO Q4-6H PRN (Reason: Shortness Of Breath Or Wheezing) cyanocobalamin (vitamin B-12) 1,000 mcg tablet 1 tab PO DAILY Qty: 90 3RF sennosides [senna] 8.6 mg Tablet 17.2 mg PO BEDTIME PRN (Reason: Constipation) valacyclovir 1 gram Tablet 1,000 mg PO BID ergocalciferol (vitamin D2) [Vitamin D2] 1,250 mcg (50,000 unit) Capsule 1,250 mcg PO QWEEK escitalopram oxalate 10 mg Tablet 15 mg PO DAILY bismuth subsalicylate 262 mg tablet,chewable 2 tab PO QID 14 Days Qty: 112 0RF metronidazole 500 mg tablet 1,000 mg PO BID Qty: 56 0RF doxycycline hyclate 100 mg capsule 100 mg PO BID 14 Days Qty: 28 0RF ondansetron 4 mg tablet,disintegrating 4 mg PO Q8H PRN (Reason: nausea and vomiting) Qty: 20 0RF verapamil 40 mg tablet 40 mg PO BEDTIME lansoprazole 30 mg capsule,delayed release(DR/EC) 30 mg PO DAILY Qty: 90 3RF Print Language: Yoruba
--- NOTE | 2024-12-28 23:37 | PC.NURSE ---
pt medicated per aug. pt on placed on bed side monitor after being changed over.
--- NOTE | 2024-12-28 23:51 | PC.NURSE ---
reviewed discharge instructions with pt. pt verbalized understanding, no sign of distress.
[2024-12-28 23:57] VITALS: BP 131/92; PULSE 64; RESP 20; TEMP 36.6; O2SAT 100
[2024-12-29 00:39] VITALS: BP 140/80; PULSE 61; RESP 18; TEMP 36.1; O2SAT 98
== END 2024-12-28 23:58 | disposition home or self-care (01) ==
PROVIDERS: Emergency Provider Emergency Medicine; PCP Registered Nurse
DX: R07.89 Other chest pain (principal); M79.602 Pain in left arm; R10.2 Pelvic and perineal pain; Z79.899 Other long term (current) drug therapy; Z87.891 Personal history of nicotine dependence
CPT/HCPCS: 36415; 71046; 80053; 84484; 84702; 85025; 93005; 96372; 99284; 99285; J1885

== ENCOUNTER → 2024-12-28 22:16 | Outpatient (BNV) | payer MEDICAID, SELFPAY | PROVIDERS: Emergency Provider Emergency Medicine; PCP Registered Nurse; Visit Provider Internal Medicine Cardiovascular Disease | DX: R94.31 Abnormal electrocardiogram [ECG] [EKG] (principal); I49.9 Cardiac arrhythmia, unspecified | CPT/HCPCS: 93010 ==

== ENCOUNTER → 2024-12-28 23:10 | Outpatient (BNV) | payer MEDICAID, SELFPAY | PROVIDERS: Emergency Provider Emergency Medicine; PCP Registered Nurse; Visit Provider Specialist | DX: R07.9 Chest pain, unspecified (principal) | CPT/HCPCS: 71046 ==

== ENCOUNTER 2024-12-31 11:35 | Emergency (ER) | payer MEDICAID, SELFPAY ==
--- NOTE | ~2024-12-31 | CT_ITS ---
EXAMINATION: CT ABDOMEN PELVIS WITHOUT IV CONTRAST HISTORY: RLQ, suprapubic tenderness, rule out appendicitis COMPARISON: Comparison is made with the prior examination dated 12/01/2021. TECHNIQUE: CT scan of the abdomen and pelvis was performed without contrast using standard departmental protocol. Coronal and sagittal reformatted images were generated and reviewed. Oral contrast material was not administered at the request of the referring physician. This CT exam was performed with one or more of the following dose reduction techniques: automated exposure control, adjustment of the mA and/or kV according to patient size, use of iterative reconstruction technique. DLP: 606 mGy-cm FINDINGS: LOWER CHEST: The visualized lung bases are clear. There is no pleural effusion. CARDIOVASCULATURE: The heart is normal in size. There is no pericardial effusion. LIVER: The liver is normal in size and contour. The liver demonstrates heterogeneously decreased attenuation consistent with steatosis. There is focal fatty sparing adjacent to the gallbladder GALLBLADDER / BILE DUCTS: The gallbladder is unremarkable. There is no intra or extrahepatic biliary ductal dilatation. SPLEEN: The spleen is normal in size and has an unremarkable unenhanced appearance. PANCREAS: The pancreas has an unremarkable unenhanced appearance. ADRENAL GLANDS: Unremarkable. KIDNEYS/RETROPERITONEUM: No renal calculi are identified. There is no hydronephrosis. LYMPH NODES: No retroperitoneal lymphadenopathy is identified in the abdomen or pelvis. VASCULATURE: The abdominal aorta is normal in caliber. MESENTERY/PERITONEUM: No free fluid. No masses. There is no free intraperitoneal gas. STOMACH: The stomach is unremarkable. SMALL BOWEL: The small bowel is normal in caliber. COLON: There is a large amount of stool throughout the colon. APPENDIX: Normal. URINARY BLADDER/PELVIC ORGANS: The urinary bladder is collapsed, limiting evaluation. The uterus and right ovary are unremarkable. There is a 3.1 cm left ovarian cyst versus follicle. BONES / SOFT TISSUES: No suspicious bony or soft tissue abnormalities. CT/CT abdomen pelvis wo IV con IMPRESSION: 1. A normal appendix is visualized. 2. Large amount of stool throughout the colon. 3. Hepatic steatosis. 4. 3.1 cm left ovarian cyst versus follicle. Electronically signed by: Corbin Murcia MD 12/31/2024 01:33 PM EDT RP
--- NOTE | 2024-12-31 11:44 | ED.GENADULT ---
HPI - General Adult General Chief complaint: Abdominal Pain Stated complaint: Headache, ABD pain, Vomiting Time Seen by Provider: 12/31/24 11:55 Source: patient Mode of arrival: ambulatory Limitations: no limitations History of Present Illness ED Provider: Dr. Ap Mcconnell HPI narrative: 34-year-old female with a history of asthma, anemia, anxiety, migraines, PVCs, hernia repair who presents emergency department for evaluation of abdominal pain x2 days. Patient states that yesterday at around midnight she had sudden onset of pressure-like pain in her abdomen. She points to her epigastric area and states the pain is migrated to her lower abdomen. The pain is a constant, pressure-like pain which is 8/10. She has had nausea and 4 episodes of vomiting. This is a 1st episode of this type of the abdominal pain. She denied fever, chills, frequency, urgency or dysuria. She has not noticed any dark stools, bloody stools or diarrheal stools. Related Data Home Medications ?Medication ?Instructions ?Recorded ?Confirmed cetirizine 10 mg tablet 1 tab PO BEDTIME PRN Allergy 10/29/20 09/16/24 Symptoms albuterol sulfate 90 mcg/actuation 1 puff PO Q4-6H PRN Shortness Of 07/20/21 09/16/24 aerosol inhaler (ProAir HFA) Breath Or Wheezing sumatriptan succinate 50 mg tablet 50 mg PO Q2H PRN Migraine Headache 07/20/21 09/16/24 hydroxyzine HCl 25 mg tablet 1 tab PO Q8-10H PRN panic attack 06/24/22 09/16/24 metoprolol tartrate 25 mg tablet 1 tab PO BID 06/24/22 09/16/24 verapamil 40 mg tablet 40 mg PO BEDTIME 06/16/24 09/16/24 ergocalciferol (vitamin D2) 1,250 1,250 mcg PO QWEEK 09/12/24 09/16/24 mcg (50,000 unit) capsule (Vitamin D2) escitalopram oxalate 10 mg tablet 15 mg PO DAILY 09/12/24 09/16/24 sennosides 8.6 mg tablet (senna) 17.2 mg PO BEDTIME PRN Constipation 09/12/24 09/16/24 valacyclovir 1 gram tablet 1,000 mg PO BID 09/12/24 09/16/24 Previous Rx's ?Medication ?Instructions ?Recorded lansoprazole 30 mg capsule,delayed 30 mg PO DAILY #90 caps 06/16/24 release cyanocobalamin (vitamin B-12) 1 tab PO DAILY #90 tabs 06/26/24 1,000 mcg tablet bismuth subsalicylate 262 mg 2 tab PO QID diarrhea 14 days #112 10/14/24 chewable tablet tabs doxycycline hyclate 100 mg capsule 100 mg PO BID 14 days #28 caps 10/14/24 metronidazole 500 mg tablet 1,000 mg (2 x 500 mg) PO BID #56 10/14/24 tabs ondansetron 4 mg disintegrating 4 mg PO Q8H PRN nausea and 10/14/24 tablet vomiting #20 tabs acetaminophen 500 mg tablet 1,000 mg (2 x 500 mg) PO Q6H PRN 12/31/24 (Tylenol Extra Strength) fever or pain #20 tabs loperamide 2 mg tablet (Imodium 2 mg PO Q4H PRN loose stool #20 12/31/24 A-D) tabs ondansetron 4 mg disintegrating 4 mg PO Q6-8H PRN nausea and 12/31/24 tablet vomiting #14 tabs Allergies Allergy/AdvReac Type Severity Reaction Status Date / Time ibuprofen Allergy Mild Gastrointestinal Verified 12/31/24 11:47 Upset Iodinated Contrast Media Allergy Swelling Verified 12/31/24 11:47 shellfish derived Allergy Unknown Verified 12/31/24 11:47 Review of Systems Review of Systems: Yes all other systems are reviewed and are negative [facility] Past Medical History [facility] Narrative: Social history: Patient denies tobacco use. She states she stopped smoking 5 years ago and smoked for 10 years. She denies alcohol use. She denies drug use. Medical History Helicobacter pylori (H. pylori) History of cardioversion GERD (gastroesophageal reflux disease) Obesity Depression PAF (paroxysmal atrial fibrillation) Palpitations COVID Migraine Panic attack Anxiety Asthma Surgical History History of esophagogastroduodenoscopy (EGD) H/O umbilical hernia repair (07/23/23) H/O dilation and curettage Family History Family History Maternal Grandfather Skin cancer Paternal Grandmother Colon cancer Social History Social History Household Members: Children Housing: Apartment Are you a primary home care rn to a significant other at home: No Do you presently have visiting nurse or other home services: No Alcohol intake: never Comment: counts correct Patient Tobacco Use Status: Former Tobacco user Tobacco use type: Cigarette Years Smoked: 15 Smoked in Last 30 Days: No Advance Directives: No Advance Directives Information Provided: Yes Do you have a plan to hurt others: No Plan service: No Current occupational status: unemployed Gender identity: Female Physical Exam ED Vital Signs: Vital Signs - 24 hr 12/31/24 11:45 12/31/24 14:21 Temperature 97.9 F Pulse Rate 72 58 Respiratory Rate 16 16 Blood Pressure 136/92 H 114/70 Pulse Oximetry 98 100 Oxygen Delivery Method Room Air Room Air BMI result Body Mass Index 31.1 Vital signs revealed an elevated blood pressure of 136/92 Exam: General: Awake, alert in no distress Head: Normocephalic, atraumatic EENT: PERRL, Lids normal, sclera normal, conjunctiva normal, nose normal , ears normal, throat without erythema or exudates Neck: Supple, no adenopathy Lung: breath sounds symmetric, no wheezing, rales or rhonchi Chest: symmetric movement, nontender Heart: regular rate and rhythm, normal S1, S2 no murmurs or rubs Abdomen: soft, mild epigastric tenderness, moderate RLQ and suprapubic tenderness, nondistended, normal bowel sounds, no rebound Back: no vertebral tenderness, no CVAT Extremities: no deformities, moves all extremities symmetrically Neuro: Awake, alert, oriented, normal speech, cranial nerves intact, moves all extremities symmetrically Psych: Pleasant, cooperative Course Course Course Narrative: This is a rapid medical exam performed by Tejal Talley NP: Additional HPI, ROS, PE not included below will be deferred to primary provider. Patient is a 34-year-old female with history of H. pylori, anemia, umbilical hernia presenting with complaint of headache, suprapubic abdominal pain, nausea and vomiting. Plan: viral serology, labs, UA Medications Administered Discontinued Medications Generic Name Dose Route Start Last Admin Trade Name Garret PRN Reason Stop Dose Admin Sodium Chloride 1,000 mls @ 999 mls/hr 12/31/24 12:46 12/31/24 14:12 Ns IV 12/31/24 13:46 999 mls/hr .Q1H1M STA Administration Ketorolac Tromethamine 15 mg 12/31/24 12:46 12/31/24 14:12 Ketorolac Tromethamine 15 Mg/Ml Vial IVPUSH 12/31/24 12:47 15 mg ONCE STA Administration Ondansetron HCl 4 mg 12/31/24 12:46 12/31/24 14:13 Ondansetron Hcl 4 Mg/2 Ml Vial IVPUSH 12/31/24 12:47 4 mg ONCE ONE Administration Medical Decision Making Medical Decision Making [facility] Narrative: 34-year-old female with a history of asthma, anemia, anxiety, migraines, PVCs, hernia repair who presents emergency department for evaluation of abdominal pain x2 days. Patient states that yesterday at around midnight she had sudden onset of pressure-like pain in her abdomen. She points to her epigastric area and states the pain is migrated to her lower abdomen. The pain is a constant, pressure-like pain which is 8/10. She has had nausea and 4 episodes of vomiting. This is a 1st episode of this type of the abdominal pain. She denied fever, chills, frequency, urgency or dysuria. She has not noticed any dark stools, bloody stools or diarrheal stools. Vital signs revealed an elevated blood pressure. Vital signs revealed an elevated blood pressure otherwise unremarkable. Exam revealed mild epigastric tenderness and moderate suprapubic and right lower quadrant tenderness. Differential diagnosis: ?Includes but is not limited to viral syndrome, COVID-19, influenza, RSV, gastritis, pancreatitis, appendicitis Course: 13:25 I ordered the following tests on this patient: CBC, CMP, COVID-19, influenza, RSV, UA, quantitative beta-hCG , CT abdomen pelvis with out IV contrast Patient was treated with Toradol 15 mg IV and Zofran 4 mg IV. 15:29 My independent interpretation patient's laboratory evaluation is as follows: CBC was normal. CMP was normal. Influenza was negative. test was negative. Patient did get some improvement of her abdominal pain but has persistent nausea therefore she was given a 2nd dose of Zofran 4 mg IV. Patient also developed diarrhea while she was here in the emergency department was treated with a Imodium [address] scan of the abdomen pelvis without IV contrast did not reveal any clear cause for your pain, radiologist felt that the patient had a normal appendix. I did discuss this with the patient. Patient most likely has a viral syndrome. Patient will be discharged home with prescriptions for Zofran, Imodium and Tylenol. She was given printed and verbal instructions. Admission/Observation Consideration of admission/observation: Escalation of care including admission/observation considered (Yes) Lab Data MDM Lab Attestation statement: I reviewed the patient's lab results. 12/31/24 12:10 12/31/24 12:10 Labs: Lab Results 12/31/24 12/31/24 Range/Units 12:10 12:33 WBC 7.0 (4.8-10.8) X10*3/uL RBC 4.89 (4.20-5.50) X10*6/uL Hgb 12.0 (12.0-16.0) g/dl Hct 38.2 (37.0-47.0) % MCV 78.1 L (80.0-98.0) fL MCH 24.5 L (27.0-33.0) pg MCHC 31.4 (31.0-35.0) g/dl RDW 16.7 H (11.0-16.0) % Plt Count 341 (160-400) X10*3/uL MPV 9.9 (9.4-12.3) fL Immature Gran % (Auto) 0.3 (0.0-0.4) % Neut % (Auto) 74.1 H (45-73) % Lymph % (Auto) 18.7 L (20-40) % Hamlin % (Auto) 5.3 (2-11) % Eos % (Auto) 0.9 (0-4) % Baso % (Auto) 0.7 (0-2) % Lymph # (Auto) 1.3 (1.2-4.9) X10*3/uL Hamlin # (Auto) 0.4 (0.1-1.2) X10*3/uL Eos # (Auto) 0.1 (0.0-0.4) X10*3/uL Baso # (Auto) 0.1 (0.0-0.2) X10*3/uL Abs Immat Gran (auto) 0.02 (0.00-0.03) X10*3/uL Absolute Neuts (auto) 5.2 (2.0-8.3) x10*3/uL Absolute Nucleated RBC 0.000 (0.0-0.012) X10*3/uL Nucleated RBC % (auto) 0.0 (0.0-0.2) /100WBC Sodium 140 (135-145) mmol/L Potassium 3.8 (3.3-5.1) mmol/L Chloride 110 H (96-108) mmol/L Carbon Dioxide 22 (22-29) mmol/L Anion Gap 12 (12-20) BUN 7 L (9-16) mg/dL Creatinine 0.74 (0.5-1.4) mg/dL Estim Creat Clear Calc 105.0 Estimated GFR > 60 Random Glucose 92 (60-115) mg/dL Calcium 9.1 (8.4-10.2) mg/dL Total Bilirubin 0.4 (0.0-1.0) mg/dL AST 27 (5-31) U/L ALT 23 (0-31) U/L Alkaline Phosphatase 63 (39-117) U/L Total Protein 7.2 (6.5-8.0) g/dL Albumin 4.4 (3.5-5.0) g/dL Beta HCG, Quant < 2 mIU/mL Influenza Type A (PCR) NEGATIVE (Negative) Influenza Type B (PCR) NEGATIVE (Negative) RSV RNA Qual (PCR) NEGATIVE (Negative) SARS-CoV-2 RNA (RT-PCR) NEGATIVE (Negative) Radiology Impression Discussion of test interpretation with radiology: I have reviewed the radiologist's reading. Radiologist Impression: CT abdomen pelvis wo IV con IMPRESSION: 1. A normal appendix is visualized. 2. Large amount of stool throughout the colon. 3. Hepatic steatosis. 4. 3.1 cm left ovarian cyst versus follicle. Electronically signed by: Corbin Murcia MD 12/31/2024 01:33 PM EDT Discharge Plan Discharge Clinical Impression: Hepatic steatosis Abdominal pain Qualifiers: Abdominal location: right lower quadrant Qualified Code(s): R10.31 - Right lower quadrant pain Nausea & vomiting Qualifiers: Vomiting type: unspecified Qualified Code(s): R11.2 - Nausea with vomiting, unspecified Diarrhea Qualifiers: Diarrhea type: unspecified type Qualified Code(s): R19.7 - Diarrhea, unspecified Patient Disposition: Home, Self-Care Instructions: Non-Alcoholic Fatty Liver Disease (ED), Abdominal Pain (ED) Additional Instructions: Your complete blood count (CBC) was normal. Your comprehensive metabolic panel was also normal including normal liver tests. The CAT scan of your abdomen pelvis did not reveal any clear cause for your abdominal pain. The radiologist did note that you have a fatty liver (hepatic steatosis) which can be normal especially since your liver tests were normal at this time. I want you to follow up with your doctor to further discuss treatment for this condition which mainly involves losing weight and following your liver tests to make sure that they do not become abnormal. Your symptoms are most likely caused by a viral infection. Take Tylenol (acetaminophen) 500 mg pills, 2 pills every 6 hours as needed for pain or fever. Take Zofran ODT 4 mg pills, 1 pill dissolved in your mouth every 8 hours as needed for nausea and vomiting. For diarrhea I want you to take Imodium 2 mg pills. ?Take 2 pills after the 1st loose, diarrheal stool then 1 pill after each loose, diarrheal stool up to 8 pills per day. ?This usually stops diarrhea within 24 hours. Follow-up with your doctor in 2 days. Please return to the emergency department if your symptoms get worse or if you develop any symptoms that are concerning to you. Prescriptions: New loperamide [Imodium A-D] 2 mg tablet 2 mg PO Q4H PRN (Reason: loose stool) Qty: 20 0RF acetaminophen [Tylenol Extra Strength] 500 mg tablet 1,000 mg PO Q6H PRN (Reason: fever or pain) Qty: 20 0RF ondansetron 4 mg tablet,disintegrating 4 mg PO Q6-8H PRN (Reason: nausea and vomiting) Qty: 14 0RF No Action cetirizine 10 mg tablet 1 tab PO BEDTIME PRN (Reason: Allergy Symptoms) hydroxyzine HCl 25 mg tablet 1 tab PO Q8-10H PRN (Reason: panic attack) metoprolol tartrate 25 mg tablet 1 tab PO BID Rx Instructions: take with food sumatriptan succinate 50 mg tablet 50 mg PO Q2H PRN (Reason: Migraine Headache) Rx Instructions: MAX DOSE 200MG / 24 HOURS albuterol sulfate [ProAir HFA] 90 mcg/actuation HFA aerosol inhaler 1 puff PO Q4-6H PRN (Reason: Shortness Of Breath Or Wheezing) cyanocobalamin (vitamin B-12) 1,000 mcg tablet 1 tab PO DAILY Qty: 90 3RF sennosides [senna] 8.6 mg Tablet 17.2 mg PO BEDTIME PRN (Reason: Constipation) valacyclovir 1 gram Tablet 1,000 mg PO BID ergocalciferol (vitamin D2) [Vitamin D2] 1,250 mcg (50,000 unit) Capsule 1,250 mcg PO QWEEK escitalopram oxalate 10 mg Tablet 15 mg PO DAILY bismuth subsalicylate 262 mg tablet,chewable 2 tab PO QID 14 Days Qty: 112 0RF metronidazole 500 mg tablet 1,000 mg PO BID Qty: 56 0RF doxycycline hyclate 100 mg capsule 100 mg PO BID 14 Days Qty: 28 0RF ondansetron 4 mg tablet,disintegrating 4 mg PO Q8H PRN (Reason: nausea and vomiting) Qty: 20 0RF verapamil 40 mg tablet 40 mg PO BEDTIME lansoprazole 30 mg capsule,delayed release(DR/EC) 30 mg PO DAILY Qty: 90 3RF Print Language: Tajik
[2024-12-31 11:45] VITALS: BP 136/92; PULSE 72; RESP 16; TEMP 36.6; O2SAT 98; BMI 31.1
[2024-12-31 12:14] LABS: MANUAL DIFF FLAG NO
[2024-12-31 12:16] LABS: Hematocrit 38.2 % (37.0-47.0); Hemoglobin 12.0 g/dl (12.0-16.0); Imm Gran Abs Auto 0.02 X10*3/uL (0.00-0.03); Imm Gran Pct Auto 0.3 % (0.0-0.4); Lymphocytes Absolute Auto 1.3 X10*3/uL (1.2-4.9); Mean Corpuscular HGB Conc 31.4 g/dl (31.0-35.0); Mean Corpuscular Hemoglobin 24.5 pg (27.0-33.0); Mean Corpuscular Volume 78.1 fL (80.0-98.0); NRBC Abs Auto 0.000 X10*3/uL (0.0-0.012); NRBC Pct Auto 0.0 /100WBC (0.0-0.2); Platelet Count 341 X10*3/uL (160-400); Red Blood Count 4.89 X10*6/uL (4.20-5.50); White Blood Count 7.0 X10*3/uL (4.8-10.8)
--- NOTE | 2024-12-31 12:16 | PC.NURSE ---
Addendum entered by Joanne Armando RN 12/31/24 12:18: Patient presents with c/o suprapubic pain since last night with assoc N/V. Denies any urinary symptoms. Began with a headache this morning. Alert and oriented. Lungs clear bilat. Respirations even and non-labored. Abdomen soft, with positive bowel sounds. No significant tenderness noted. Positive pedal pulses with no edema. Original Note: Medical History Helicobacter pylori (H. pylori) History of cardioversion GERD (gastroesophageal reflux disease) Obesity Depression PAF (paroxysmal atrial fibrillation) Palpitations COVID Migraine Panic attack Anxiety Asthm
[2024-12-31 12:40] LABS: Alanine Aminotransferase 23 U/L (0-31); Albumin Level 4.4 g/dL (3.5-5.0); Alkaline Phosphatase 63 U/L (39-117); Anion Gap 12 (12-20); Aspartate Amino Transferase 27 U/L (5-31); Blood Urea Nitrogen 7 mg/dL (9-16); Calcium 9.1 mg/dL (8.4-10.2); Carbon Dioxide 22 mmol/L (22-29); Chloride 110 mmol/L (96-108); Creatinine Clr Calc Pharmacy 105.0; Estimated Glomerular Filt Rate > 60; Potassium 3.8 mmol/L (3.3-5.1); Sodium 140 mmol/L (135-145); Total Protein 7.2 g/dL (6.5-8.0)
--- OUTSIDE RECORDS SUMMARY | 2024-12-31 12:47 | XMS_ITS | Clinical Summary ---
Author Organization [facility] Address [address] [place] [phone] Phone Care Team Providers Care Denitrator Operator Name Role Phone Physician, No Pcp [...] ap Smear 05/26/2024 05/26/2021, 12/05/2018 Depression Screening 06/11/2024 Influenza Vaccine (#1) 2025 , 04/08/2019 Cholesterol Screening (Lipid Panel) 01/23/2029 01/24/2024 DTaP,Tdap,and [...] RESULTING AGENCY - 12/13/2018 2:35 PM EDT [id number] THINPREP PAP, IMAGED: NEGATIVE FOR SQUAMOUS INTRAEPITHELIAL [...] Maintenance Insurance MEDICAID - [place] Care Teams Denitrator Operator Relationship Specialty Start Date End Date Physician, No Pcp PCP - General 04/18/24
--- OUTSIDE RECORDS SUMMARY | 2024-12-31 12:47 | XMS_ITS | Clinical Summary ---
Demographics Address [address] [place] [address] Home Phone Preferred Language Gambian Marital Status Sabianism Affiliation Unknown Race Unknown Ethnic Group or Author Organization [facility] Address [address] [place] [address] Care Team Providers Care Monumental Stonemason Name Role Phone Unavailable Primary Care Provider [...] Self [address] [place] [address]
--- OUTSIDE RECORDS SUMMARY | 2024-12-31 12:47 | XMS_ITS | Encounter Summary ---
Author Organization [facility] [employer] [employer] Address [address] [place] [address] Care Team Providers Care Shop And Alteration Tailor Name Role Phone Demetria Chaparro Primary Care Provider [phone] Erin Thibodeaux RN Unavailable [phone] Nessa Gutierrez Unavailable Nessa Gutierrez Unavailable Reason for Visit * Reason Onset Date Comments Results 03/28/2024 Encounter Details Date Type Department Care Team (Late st Contact Info) Description 03/28/2024 Telephone [facility] [address] [place] [address] Demetria Chaparro FNP [address] [place], [place] [id number] Results Social History Tobacco Use Types Packs/Day [...] results: Lab Date when done: 03/27/24 Facility: [facility] Contact pt at [phone] documented in this encounter Plan of Treatment Not on file documented as of this encounter Visit Diagnoses Not on filedocumented in this encounter Additional Health Concerns Assessment Noted Time PHQ-9 Depression Total Score: 9 01/21/20 10:18 AM EDT documented as of this encounter Care Teams Shop And Alteration Tailor Relationship Specialty Start Date End Date Demetria Chaparro FNP [address] [place] [id number] PCP - General Family Medicine 02/06/22 Erin Thibodeaux RN [address] [place] [id number] Registered Nurse Family Medicine 10/21/24 11/13/24 Nessa Gutierrez 10/21/24 12/19/24 Nessa Gutierrez 12/29/24 12/30/24 Britany Childers Concrete PuddlerLandscape Gardener 11/12/24 documented as of this encounter
[2024-12-31 13:18] LABS: Resp Syncy Virus RNA Qual PCR NEGATIVE (Negative); SARS COV2 PCR INHOUSE NEGATIVE (Negative)
[2024-12-31 14:21] VITALS: BP 114/70; PULSE 58; RESP 16; O2SAT 100
[2024-12-31 15:49] VITALS: BP 114/70; PULSE 58; RESP 16; TEMP 36.7; O2SAT 100
== END 2024-12-31 15:50 | disposition home or self-care (01) ==
PROVIDERS: Registered Nurse Emergency; Emergency Provider Emergency Medicine Emergency Medical Services; PCP Registered Nurse
DX: K76.0 Fatty (change of) liver, not elsewhere classified (principal); R10.2 Pelvic and perineal pain; R51.9 Headache, unspecified; R11.2 Nausea with vomiting, unspecified; R10.31 Right lower quadrant pain; R19.7 Diarrhea, unspecified; Z79.899 Other long term (current) drug therapy; Z87.891 Personal history of nicotine dependence; Z03.818 Encounter for observation for suspected exposure to other biological agents ruled out
CPT/HCPCS: 74176; 80053; 84702; 85025; 87637; 96374; 96375; 99284; 99285; J1885; J2405

== ENCOUNTER → 2024-12-31 12:47 | Outpatient (BNV) | payer MEDICAID, SELFPAY | PROVIDERS: Emergency Provider Emergency Medicine Emergency Medical Services; PCP Registered Nurse; Visit Provider Radiology Diagnostic Radiology | DX: K76.0 Fatty (change of) liver, not elsewhere classified (principal) | CPT/HCPCS: 74176 ==

== ENCOUNTER 2025-01-17 19:29 | Emergency (ER) | payer MEDICAID, SELFPAY ==
--- NOTE | ~2025-01-17 | US_ITS ---
CLINICAL HISTORY: L Pelvic Pain; Amenorrhea Exam: Ultrasound of the pelvis, transabdominal and transvaginal Comparison: CT of the pelvis from 12/31/2024 Findings: Uterus is anteverted and mildly retroflexed. Portions of the uterus obscured by side lobe artifacts. Nonuniformity of the endometrium is nonspecific with imaged endometrium measuring 1.5 cm maximum thickness. Low echogenicity measures 1.4 cm appears with a in the endometrium. Although nonspecific this may be related to blood products. Partial obscuration of the junctional zones are nonspecific and can be seen with adenomyosis. Right ovary measures 3.5 x 2.9 x 2.2 cm. Left ovary measures 3.6 x 3.4 x 2.1 cm. Multiple follicles noted in both ovaries. Mild free fluid is nonspecific in the imaged pelvis. Small cysts adjacent to the cervix likely due to nabothian cysts. Impression: 1. No ultrasound findings of ovarian torsion. 2. Abnormal appearance of the endometrium is nonspecific including nonuniformity and obscuration of the borders of the endometrium. Short-term follow-up in 6 weeks or 10 weeks could be considered. Blurring of the junctional zone is nonspecific and can be seen with adenomyosis. Other endometrial pathology not excluded by imaging. This document has been electronically signed by: Sabino Maria MD on 01/18/2025 01:08:03
[2025-01-17 19:40] VITALS: BP 139/77; PULSE 73; RESP 20; TEMP 36.2; O2SAT 97; BMI 29.7
--- NOTE | 2025-01-17 19:40 | ED.ABDPAIN ---
HPI - Abdominal Pain General Chief Complaint: Abdominal Pain Stated Complaint: cramping 6-7 days Time Seen by Provider: 01/17/25 20:42 Source: patient Mode of arrival: ambulatory Limitations: no limitations History of Present Illness ED Provider: Matheus WHATLEY HPI narrative: The patient is a 34-year-old female presenting to the ED for evaluation of lower abdominal cramping greater on the left with delayed menstruation. The patient reports last menstrual period was 12/12/2024, reports she is currently 7 days late for her menstruation. Patient reports she was seen in this facility for a different complaint approximately 2-3 weeks ago at which time she underwent a pelvic ultrasound which showed a ovarian cyst on the left side. Patient reports she has been experiencing associated breast tenderness, nausea, and poor appetite. The patient denies any dysuria, hematuria, vaginal bleeding, fever/chills, vomiting, chest pain, shortness of breath, constipation, or diarrhea. The patient reports she is taking home tests which have been negative, but presents to the ED for evaluation of delayed menstruation with cramping. The patient is unable to identify any acute change in her symptoms prompting ED evaluation other than the delayed menstruation. Related Data Home Medications ?Medication ?Instructions ?Recorded ?Confirmed cetirizine 10 mg tablet 1 tab PO BEDTIME PRN Allergy 10/29/20 09/16/24 Symptoms albuterol sulfate 90 mcg/actuation 1 puff PO Q4-6H PRN Shortness Of 07/20/21 09/16/24 aerosol inhaler (ProAir HFA) Breath Or Wheezing sumatriptan succinate 50 mg tablet 50 mg PO Q2H PRN Migraine Headache 07/20/21 09/16/24 hydroxyzine HCl 25 mg tablet 1 tab PO Q8-10H PRN panic attack 06/24/22 09/16/24 metoprolol tartrate 25 mg tablet 1 tab PO BID 06/24/22 09/16/24 verapamil 40 mg tablet 40 mg PO BEDTIME 06/16/24 09/16/24 ergocalciferol (vitamin D2) 1,250 1,250 mcg PO QWEEK 09/12/24 09/16/24 mcg (50,000 unit) capsule (Vitamin D2) escitalopram oxalate 10 mg tablet 15 mg PO DAILY 09/12/24 09/16/24 sennosides 8.6 mg tablet (senna) 17.2 mg PO BEDTIME PRN Constipation 09/12/24 09/16/24 valacyclovir 1 gram tablet 1,000 mg PO BID 09/12/24 09/16/24 Previous Rx's ?Medication ?Instructions ?Recorded lansoprazole 30 mg capsule,delayed 30 mg PO DAILY #90 caps 06/16/24 release cyanocobalamin (vitamin B-12) 1 tab PO DAILY #90 tabs 06/26/24 1,000 mcg tablet bismuth subsalicylate 262 mg 2 tab PO QID diarrhea 14 days #112 10/14/24 chewable tablet tabs doxycycline hyclate 100 mg capsule 100 mg PO BID 14 days #28 caps 10/14/24 metronidazole 500 mg tablet 1,000 mg (2 x 500 mg) PO BID #56 10/14/24 tabs ondansetron 4 mg disintegrating 4 mg PO Q8H PRN nausea and 10/14/24 tablet vomiting #20 tabs acetaminophen 500 mg tablet 1,000 mg (2 x 500 mg) PO Q6H PRN 12/31/24 (Tylenol Extra Strength) fever or pain #20 tabs loperamide 2 mg tablet (Imodium 2 mg PO Q4H PRN loose stool #20 12/31/24 A-D) tabs ondansetron 4 mg disintegrating 4 mg PO Q6-8H PRN nausea and 12/31/24 tablet vomiting #14 tabs Allergies Allergy/AdvReac Type Severity Reaction Status Date / Time ibuprofen Allergy Mild Gastrointestinal Verified 01/17/25 19:41 Upset Iodinated Contrast Media Allergy Swelling Verified 01/17/25 19:41 shellfish derived Allergy Unknown Verified 01/17/25 19:41 Review of Systems Review of Systems Yes all other systems are reviewed and are negative [facility] Past Medical History Medical History Helicobacter pylori (H. pylori) History of cardioversion GERD (gastroesophageal reflux disease) Obesity Depression PAF (paroxysmal atrial fibrillation) Palpitations COVID Migraine Panic attack Anxiety Asthma Surgical History History of esophagogastroduodenoscopy (EGD) H/O umbilical hernia repair (07/23/23) H/O dilation and curettage Family History Family History Maternal Grandfather Skin cancer Paternal Grandmother Colon cancer Social History Social History Household Members: Children Housing: Apartment Are you a primary direct care worker to a significant other at home: No Do you presently have visiting nurse or other home services: No Alcohol intake: never Comment: counts correct Patient Tobacco Use Status: Former Tobacco user Tobacco use type: Cigarette Years Smoked: 15 Advance Directives: No Advance Directives Information Provided: No service: No Current occupational status: unemployed Gender identity: Female Physical Exam ED Vital Signs: Vital Signs - 24 hr 01/17/25 19:40 Temperature 97.1 F Pulse Rate 73 Respiratory Rate 20 Blood Pressure 139/77 Pulse Oximetry 97 Oxygen Delivery Method Room Air BMI result Body Mass Index 29.7 CONSTITUTIONAL: The patient appears non-toxic, well nourished and in no acute distress. Vital signs as documented. HEAD: Atraumatic, normocephalic. EYES: EOMs grossly intact, pupils equal, conjunctiva clear, no exudate. ENT: Nares patent, no discharge. Airway patent, no audible stridor, visible mucosa is pink and moist without noted lesions. NECK: Trachea is midline, no obvious masses or gross abnormalities. CHEST: Symmetric movement, normal appearance. LUNGS: LS present and CTAB, no w/r/r. Non-labored work of breathing. CARDIAC: Regular Rhythm, S1/S2 appreciated, no murmurs, rubs or gallops. ABDOMEN: Abdomen soft x4 quadrants, mild tenderness of the left hemipelvis, negative rebound, no palpable masses or organomegaly. : Deferred. EXTREMITIES: Normal tone, moves all extremities spontaneously without reported pain. No obvious acute injury or deformity noted. NEURO: Alert and oriented x3, CN II-XII appear grossly intact. Cerebellar Functioning grossly intact. No obvious sensory or motor deficits. Speech clear and appropriate. PSYCH: normal affect, appropriate eye contact, fluid speech, with appropriate response to questioning. No reported suicidality or homicidality. SKIN: Warm, dry, color appropriate, normal turgor. No rashes noted. Course Course Course Narrative: This is an RME: Additional HPI, ROS, PE not included below will be deferred to primary provider. RME assessment and note performed by: Mirlande Gibbons PA-C 34-year-old female, (1 miscarriage) with a history of asthma, anemia, anxiety, migraines, PVCs, hernia repair who presents to the ED with concerns of breast tenderness, nausea, cramping. Reports she is 7 days late for her menses. No hx of ectopic . December 12 was last menses. Plan: Medical Decision Making Medical Decision Making [facility] Narrative: 11:03 PM 01/17/2025 (Nabeel WHATLEY): The patient is a 34-year-old female presenting to the ED for evaluation of abdominal cramping with delayed menstruation. Patient reports negative tests at home, but presents to the ED for additional evaluation. The patient's laboratory evaluation shows a. No leukocytosis, significant anemia, electrolyte abnormality, or MANJINDER. The patient's viral swab is negative. The patient has yet to give a urine sample, we will add on a serum HCG, and provide oral fluids to facilitate urinalysis. We will also obtain pelvic ultrasound to re-evaluate previously diagnosed left ovarian cyst and ensure no evidence of torsion. Pending unremarkable ultrasound patient will be discharged to follow up with OBGYN. 1:10 AM 01/18/2025 (Nabeel WHATLEY): The patient's test is negative, urinalysis shows no evidence of infection. The patient's ultrasound has resulted and shows resolution of the previously described left ovarian cyst, no evidence of ovarian torsion. The patient's endometrium was noted to be poorly demarcated and non uniform with the recommendation for short-term repeat ultrasound in 6-10 weeks as symptoms may be related to adenomyosis however other endometrial pathology is not excluded. The patient will be discharged to follow up with OBGYN regarding these findings. Admission/Observation Consideration of admission/observation: Escalation of care including admission/observation considered Lab Data [facility] Lab Attestation statement: I reviewed the patient's lab results. 01/17/25 20:44 01/17/25 20:44 Labs: Lab Results 01/17/25 01/18/25 Range/Units 20:44 00:23 WBC 7.0 (4.8-10.8) X10*3/uL RBC 4.37 (4.20-5.50) X10*6/uL Hgb 11.1 L (12.0-16.0) g/dl Hct 33.4 L (37.0-47.0) % MCV 76.4 L (80.0-98.0) fL MCH 25.4 L (27.0-33.0) pg MCHC 33.2 (31.0-35.0) g/dl RDW 16.7 H (11.0-16.0) % Plt Count 305 (160-400) X10*3/uL MPV 10.2 (9.4-12.3) fL Absolute Nucleated RBC 0.000 (0.0-0.012) X10*3/uL Nucleated RBC % (auto) 0.0 (0.0-0.2) /100WBC Sodium 140 (135-145) mmol/L Potassium 3.7 (3.3-5.1) mmol/L Chloride 108 (96-108) mmol/L Carbon Dioxide 23 (22-29) mmol/L Anion Gap 13 (12-20) BUN 8 L (9-16) mg/dL Creatinine 0.70 (0.5-1.4) mg/dL Estim Creat Clear Calc 116.9 Estimated GFR > 60 Random Glucose 99 (60-115) mg/dL Calcium 9.3 (8.4-10.2) mg/dL Beta HCG, Quant < 2 mIU/mL Urine Color Yellow Urine Appearance Clear Urine pH 7.5 (5.0-9.0) Ur Specific [place] 1.010 (1.005-1.025) Urine Protein Negative (Neg-Trace) mg/dL Urine Glucose (UA) Negative (Negative) mg/dL Urine Ketones Negative (Negative) mg/dL Urine Blood Negative (Negative) Urine Nitrite Negative (Negative) Ur Leukocyte Esterase Negative (Negative) Urine RBC 0-2 (0-2) /HPF Urine WBC 0-5 (0-5) /HPF Ur Squamous Epith Cells 0-2 (0-2) /HPF Urine Bacteria Trace (None Seen) Hyaline Casts 0-2 (0-2) /LPF Urine Test NEGATIVE (NEGATIVE) Influenza Type A (PCR) NEGATIVE (Negative) Influenza Type B (PCR) NEGATIVE (Negative) RSV RNA Qual (PCR) NEGATIVE (Negative) SARS-CoV-2 RNA (RT-PCR) NEGATIVE (Negative) Radiology Impression Discussion of test interpretation with radiology: I have reviewed the radiologist's reading. Radiologist Impression: CLINICAL HISTORY: L Pelvic Pain; Amenorrhea Exam: Ultrasound of the pelvis, transabdominal and transvaginal Comparison: CT of the pelvis from 12/31/2024 Findings: Uterus is anteverted and mildly retroflexed. Portions of the uterus obscured by side lobe artifacts. Nonuniformity of the endometrium is nonspecific with imaged endometrium measuring 1.5 cm maximum thickness. Low echogenicity measures 1.4 cm appears with a in the endometrium. Although nonspecific this may be related to blood products. Partial obscuration of the junctional zones are nonspecific and can be seen with adenomyosis. Right ovary measures 3.5 x 2.9 x 2.2 cm. Left ovary measures 3.6 x 3.4 x 2.1 cm. Multiple follicles noted in both ovaries. Mild free fluid is nonspecific in the imaged pelvis. Small cysts adjacent to the cervix likely due to nabothian cysts. Impression: 1. No ultrasound findings of ovarian torsion. 2. Abnormal appearance of the endometrium is nonspecific including nonuniformity and obscuration of the borders of the endometrium. Short-term follow-up in 6 weeks or 10 weeks could be considered. Blurring of the junctional zone is nonspecific and can be seen with adenomyosis. Other endometrial pathology not excluded by imaging. This document has been electronically signed by: Sabino Maria MD on 01/18/2025 01:08:03 Discharge Plan Discharge Clinical Impression: Pelvic pain, Irregular menstrual cycle, Abnormal ultrasound of pelvis Patient Disposition: Home, Self-Care Instructions: Pelvic Pain (ED), Abnormal (Dysfunctional) Uterine Bleeding (ED) Additional Instructions: Thank you for choosing [facility]'s Emergency Department for your care today. Thankfully your laboratory evaluation and urinalysis today showed no evidence of infection or other metabolic abnormality. At this time there is no indication for admission to the hospital or continued ED observation, and it is safe to discharge you home. Your pelvic ultrasound shows no evidence of ovarian torsion and demonstrates that your left ovarian cyst has resolved. Your ultrasound today did show abnormalities of your uterine wall, EKG with obscured while borders and non uniform presentation of the uterine tissue. The exact cause of this is not entirely clear, and we recommend that you follow up with your OBGYN for a repeat ultrasound in 6-10 weeks. You may take alternating (staggered) doses of ibuprofen 600mg and Tylenol 1000mg every 4 hours as needed for any additional pain. Please stay well hydrated and get plenty of rest. Please also follow up with your primary care physician for re-evaluation, additional management of your symptoms, and continued preventative care. If you do not have a primary care physician, please call the [facility] at [phone] to establish a new primary care physician. While waiting to establish your new primary care physician, you can call our [facility] at [phone] for non-emergency needs. Please return to the emergency department if you develop a severe or sudden change in your symptoms, a fever over 100.4 that does not improve with Tylenol or Ibuprofen, recurrent vomiting, or any other new or worsening symptoms or concerns. Prescriptions: No Action cetirizine 10 mg tablet 1 tab PO BEDTIME PRN (Reason: Allergy Symptoms) hydroxyzine HCl 25 mg tablet 1 tab PO Q8-10H PRN (Reason: panic attack) metoprolol tartrate 25 mg tablet 1 tab PO BID Rx Instructions: take with food sumatriptan succinate 50 mg tablet 50 mg PO Q2H PRN (Reason: Migraine Headache) Rx Instructions: MAX DOSE 200MG / 24 HOURS albuterol sulfate [ProAir HFA] 90 mcg/actuation HFA aerosol inhaler 1 puff PO Q4-6H PRN (Reason: Shortness Of Breath Or Wheezing) cyanocobalamin (vitamin B-12) 1,000 mcg tablet 1 tab PO DAILY Qty: 90 3RF sennosides [senna] 8.6 mg Tablet 17.2 mg PO BEDTIME PRN (Reason: Constipation) valacyclovir 1 gram Tablet 1,000 mg PO BID ergocalciferol (vitamin D2) [Vitamin D2] 1,250 mcg (50,000 unit) Capsule 1,250 mcg PO QWEEK escitalopram oxalate 10 mg Tablet 15 mg PO DAILY loperamide [Imodium A-D] 2 mg tablet 2 mg PO Q4H PRN (Reason: loose stool) Qty: 20 0RF acetaminophen [Tylenol Extra Strength] 500 mg tablet 1,000 mg PO Q6H PRN (Reason: fever or pain) Qty: 20 0RF ondansetron 4 mg tablet,disintegrating 4 mg PO Q6-8H PRN (Reason: nausea and vomiting) Qty: 14 0RF bismuth subsalicylate 262 mg tablet,chewable 2 tab PO QID 14 Days Qty: 112 0RF metronidazole 500 mg tablet 1,000 mg PO BID Qty: 56 0RF doxycycline hyclate 100 mg capsule 100 mg PO BID 14 Days Qty: 28 0RF ondansetron 4 mg tablet,disintegrating 4 mg PO Q8H PRN (Reason: nausea and vomiting) Qty: 20 0RF verapamil 40 mg tablet 40 mg PO BEDTIME lansoprazole 30 mg capsule,delayed release(DR/EC) 30 mg PO DAILY Qty: 90 3RF Referrals: Demetria Chaparro FNP [Primary Care Provider, Family Practice] Clinical Impression: Irregular menstrual cycle; Pelvic pain; Abnormal ultrasound of pelvis Print Language: Japanese
--- OUTSIDE RECORDS SUMMARY | 2025-01-17 20:11 | XMS_ITS | Clinical Summary ---
Author Organization [facility] Address [address] [place] [id number] Phone Care Team Providers Care Manager Privacy Name Role Phone Physician, No Pcp Primary [...] RESULTING AGENCY - 12/13/2018 2:35 PM EDT [id number] THINPREP PAP, IMAGED: NEGATIVE FOR SQUAMOUS INTRAEPITHELIAL [...] ANY DIAGNOSIS. Z12.4, Z34.81, , LMP 09/11/2018 oN Arias CN LAB CYTOLOGY ORDERABLES Final Result HISTORICAL TESTING LAB RESULTING AGENCY from Last 3 Months or Most Recently Relevant to Health Maintenance Insurance MEDICAID - [place] Care Teams Manager Privacy Relationship Specialty Start Date End Date Physician, No Pcp PCP - General 04/18/24
--- OUTSIDE RECORDS SUMMARY | 2025-01-17 20:11 | XMS_ITS | Clinical Summary ---
Demographics Address 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 [place] [address]
[2025-01-17 20:56] LABS: Hematocrit 33.4 % (37.0-47.0); Hemoglobin 11.1 g/dl (12.0-16.0); Mean Corpuscular HGB Conc 33.2 g/dl (31.0-35.0); Mean Corpuscular Hemoglobin 25.4 pg (27.0-33.0); Mean Corpuscular Volume 76.4 fL (80.0-98.0); NRBC Abs Auto 0.000 X10*3/uL (0.0-0.012); NRBC Pct Auto 0.0 /100WBC (0.0-0.2); Platelet Count 305 X10*3/uL (160-400); Red Blood Count 4.37 X10*6/uL (4.20-5.50); White Blood Count 7.0 X10*3/uL (4.8-10.8)
[2025-01-17 21:10] LABS: Anion Gap 13 (12-20); Blood Urea Nitrogen 8 mg/dL (9-16); Calcium 9.3 mg/dL (8.4-10.2); Carbon Dioxide 23 mmol/L (22-29); Chloride 108 mmol/L (96-108); Creatinine Clr Calc Pharmacy 116.9; Estimated Glomerular Filt Rate > 60; Potassium 3.7 mmol/L (3.3-5.1); Sodium 140 mmol/L (135-145)
[2025-01-17 21:32] LABS: Resp Syncy Virus RNA Qual PCR NEGATIVE (Negative); SARS COV2 PCR INHOUSE NEGATIVE (Negative)
[2025-01-18 00:31] LABS: Appearance Urine Clear; Glucose Urine UA Negative (Negative); PH 7.5 (5.0-9.0); Specific Gravity - Urine 1.010 (1.005-1.025)
[2025-01-18 00:46] LABS: UPreg QC Valid YES
--- NOTE | 2025-01-18 01:09 | PC.NURSE ---
[employer] in the front main for patient care, observed this patient walking through the front department towards the exit/entrance to the ED. Upon asking if they had dc paperwork the patient stated I'm going, i've been here too long . She was alert, conversing freely and without any s/s of distress noted
[2025-01-18 02:24] VITALS: BP 139/77; PULSE 73; RESP 20; TEMP 36.2; O2SAT 97
== END 2025-01-18 01:10 | disposition home or self-care (01) ==
PROVIDERS: Physician Assistant; Emergency Provider Emergency Medicine; PCP Registered Nurse
DX: R10.2 Pelvic and perineal pain (principal); N92.6 Irregular menstruation, unspecified; R93.41 Abnormal radiologic findings on diagnostic imaging of renal pelvis, ureter, or bladder
CPT/HCPCS: 76830; 76856; 80048; 81001; 81025; 84702; 85027; 87637; 99282; 99284

== ENCOUNTER → 2025-01-17 22:54 | Outpatient (BNV) | payer MEDICAID, SELFPAY | PROVIDERS: Emergency Provider Emergency Medicine; PCP Registered Nurse; Visit Provider Radiology Neuroradiology | DX: N91.2 Amenorrhea, unspecified (principal); R10.2 Pelvic and perineal pain | CPT/HCPCS: 76830; 76856 ==

== ENCOUNTER 2025-01-28 21:50 | Emergency (ER) | payer MEDICAID, SELFPAY ==
--- NOTE | ~2025-01-28 | US_ITS ---
CLINICAL HISTORY: abd pain, vaginal bleeding, r o ectopic US OB 1st trimester transabdominal Comparison: US/SR - US PELVIC COMPLETE - 01/17/25 23:39 EDT Findings: Small fluid collection is in the fundal endometrial canal. No yolk sac or pole identified at this time. Uterus is 10.1 cm long. Endometrial stripe is thickened up to 2 cm. Right ovary is 1.5 x 1.4 x 1.6 cm. Left ovary is 3.4 x 2.4 x 2.1 cm. Left corpus luteal cyst measures up to 1.5 cm. No free fluid in the cul-de-sac IMPRESSION: Small fluid collection in the fundal endometrium, possibly very early gestational sac with no pole or yolk sac identified at this time. Recommend close clinical and ultrasound follow-up with monitoring of serial quantitative beta hCG. This document has been electronically signed by: Leighton Son MD, PHD on 01/29/2025 03:53:36
[2025-01-28 21:52] VITALS: BP 143/88; PULSE 75; RESP 20; TEMP 36.5; O2SAT 99; BMI 31.4
[2025-01-28 22:00] VITALS: BP 130/82; PULSE 78; RESP 18; TEMP 36.1; O2SAT 99
[2025-01-28 22:16] LABS: MANUAL DIFF FLAG NO
[2025-01-28 22:18] LABS: Hematocrit 33.9 % (37.0-47.0); Hemoglobin 11.4 g/dl (12.0-16.0); Imm Gran Abs Auto 0.02 X10*3/uL (0.00-0.03); Imm Gran Pct Auto 0.3 % (0.0-0.4); Lymphocytes Absolute Auto 2.9 X10*3/uL (1.2-4.9); Mean Corpuscular HGB Conc 33.6 g/dl (31.0-35.0); Mean Corpuscular Hemoglobin 26.0 pg (27.0-33.0); Mean Corpuscular Volume 77.2 fL (80.0-98.0); NRBC Abs Auto 0.000 X10*3/uL (0.0-0.012); NRBC Pct Auto 0.0 /100WBC (0.0-0.2); Platelet Count 312 X10*3/uL (160-400); Red Blood Count 4.39 X10*6/uL (4.20-5.50); White Blood Count 7.4 X10*3/uL (4.8-10.8)
[2025-01-28 22:18] LABS: Appearance Urine Clear; Glucose Urine UA Negative (Negative); PH >= 9.0 (5.0-9.0); Specific Gravity - Urine 1.010 (1.005-1.025); UMIC TRIGGER UACC YES
[2025-01-28 22:36] LABS: Alanine Aminotransferase 29 U/L (0-31); Albumin Level 4.2 g/dL (3.5-5.0); Alkaline Phosphatase 73 U/L (39-117); Anion Gap 13 (12-20); Aspartate Amino Transferase 24 U/L (5-31); Blood Urea Nitrogen 7 mg/dL (9-16); Calcium 9.7 mg/dL (8.4-10.2); Carbon Dioxide 24 mmol/L (22-29); Chloride 109 mmol/L (96-108); Creatinine Clr Calc Pharmacy 105.4; Estimated Glomerular Filt Rate > 60; Potassium 3.8 mmol/L (3.3-5.1); Sodium 142 mmol/L (135-145); Total Protein 6.9 g/dL (6.5-8.0)
--- NOTE | 2025-01-28 23:44 | ED.ABDPAIN ---
HPI - Abdominal Pain General Chief Complaint: Abdominal Pain Stated Complaint: pain in back Time Seen by Provider: 01/28/25 23:23 Source: patient Mode of arrival: ambulatory Limitations: no limitations History of Present Illness ED Provider: Dr. Bianka Sheikh HPI narrative: Patient is a A1 who comes to the emergency room reporting that recently she had a positive test. Patient states that she has been having a lot of abdominal pain and cramping especially in the left lower quadrant, some spotting. Patient states that yesterday she went to her OBGYN, she was diagnosed with some kind of infection and they gave her a vaginal cream. Related Data Home Medications ?Medication ?Instructions ?Recorded ?Confirmed cetirizine 10 mg tablet 1 tab PO BEDTIME PRN Allergy 10/29/20 09/16/24 Symptoms albuterol sulfate 90 mcg/actuation 1 puff PO Q4-6H PRN Shortness Of 07/20/21 09/16/24 aerosol inhaler (ProAir HFA) Breath Or Wheezing sumatriptan succinate 50 mg tablet 50 mg PO Q2H PRN Migraine Headache 07/20/21 09/16/24 hydroxyzine HCl 25 mg tablet 1 tab PO Q8-10H PRN panic attack 06/24/22 09/16/24 metoprolol tartrate 25 mg tablet 1 tab PO BID 06/24/22 09/16/24 verapamil 40 mg tablet 40 mg PO BEDTIME 06/16/24 09/16/24 ergocalciferol (vitamin D2) 1,250 1,250 mcg PO QWEEK 09/12/24 09/16/24 mcg (50,000 unit) capsule (Vitamin D2) escitalopram oxalate 10 mg tablet 15 mg PO DAILY 09/12/24 09/16/24 sennosides 8.6 mg tablet (senna) 17.2 mg PO BEDTIME PRN Constipation 09/12/24 09/16/24 valacyclovir 1 gram tablet 1,000 mg PO BID 09/12/24 09/16/24 Previous Rx's ?Medication ?Instructions ?Recorded lansoprazole 30 mg capsule,delayed 30 mg PO DAILY #90 caps 06/16/24 release cyanocobalamin (vitamin B-12) 1 tab PO DAILY #90 tabs 06/26/24 1,000 mcg tablet bismuth subsalicylate 262 mg 2 tab PO QID diarrhea 14 days #112 10/14/24 chewable tablet tabs doxycycline hyclate 100 mg capsule 100 mg PO BID 14 days #28 caps 10/14/24 metronidazole 500 mg tablet 1,000 mg (2 x 500 mg) PO BID #56 10/14/24 tabs ondansetron 4 mg disintegrating 4 mg PO Q8H PRN nausea and 10/14/24 tablet vomiting #20 tabs acetaminophen 500 mg tablet 1,000 mg (2 x 500 mg) PO Q6H PRN 12/31/24 (Tylenol Extra Strength) fever or pain #20 tabs loperamide 2 mg tablet (Imodium 2 mg PO Q4H PRN loose stool #20 12/31/24 A-D) tabs ondansetron 4 mg disintegrating 4 mg PO Q6-8H PRN nausea and 12/31/24 tablet vomiting #14 tabs Allergies Allergy/AdvReac Type Severity Reaction Status Date / Time ibuprofen Allergy Mild Gastrointestinal Verified 01/28/25 21:55 Upset Iodinated Contrast Media Allergy Swelling Verified 01/28/25 21:55 shellfish derived Allergy Unknown Verified 01/28/25 21:55 Review of Systems Review of Systems Constitutional : No Weight loss, No Fever, No Chills, No Night Sweats, No Fatigue, No Malaise ENT/Mouth : No Hearing loss, No Ear Pain, No Nasal Congestion, No Sinus Pain, No Hoarseness, No sore throat, No Rhinorrhea, No Swallowing Difficulty Eyes: No Eye Pain, No Swelling, No Redness, No Foreign Body, No Discharge, No Vision Changes Cardiovascular : No Chest Pain, No SOB, No Dyspnea on Exertion, No Orthopnea, No Edema, No Palpitations Respiratory : No Cough, No Sputum, No Wheezing, No Smoke Exposure, No Dyspnea Gastrointestinal : No Nausea, No Vomiting, No Diarrhea, No Constipation, No abdominal Pain, No Hematochezia, No Melena Genitourinary : Complaining of vaginal bleeding/spotting. Complaining of abdominal cramping, left lower quadrant pain, No Dysuria, No Urinary Frequency, No Hematuria, No Urinary Incontinence, No Urgency, No Flank Pain, No Urinary Flow Changes, No Hesitancy Musculoskeletal : No joint pain, No Myalgias, No Joint Swelling Skin : No Skin Lesions, No rash Neuro : No Weakness, No Numbness, No Paresthesias, No Loss of Consciousness, No Dizziness, No Headache Psych : No Anxiety/Panic, No Depression, No SI/HI/AH/VH, No Social Issues, Heme/Lymph: No Bruising, No Bleeding,No Lymphadenopathy Endocrine : No Polyuria, No Polydipsia, No Temperature Intolerance [facility] Past Medical History Medical History Helicobacter pylori (H. pylori) History of cardioversion GERD (gastroesophageal reflux disease) Obesity Depression PAF (paroxysmal atrial fibrillation) Palpitations COVID Migraine Panic attack Anxiety Asthma Surgical History History of esophagogastroduodenoscopy (EGD) H/O umbilical hernia repair (07/23/23) H/O dilation and curettage Family History Family History Maternal Grandfather Skin cancer Paternal Grandmother Colon cancer Social History Social History Household Members: Children Housing: Apartment Are you a primary hemodialysis patient care specialist to a significant other at home: No Do you presently have visiting nurse or other home services: No Alcohol intake: never Comment: counts correct Patient Tobacco Use Status: Former Tobacco user Tobacco use type: Cigarette Years Smoked: 15 Advance Directives: No Advance Directives Information Provided: No Patient : No service: No Current occupational status: unemployed Gender identity: Female Physical Exam ED Exam Exam: Appearance: Alert. Oriented X3. No acute distress. Eyes: Pupils equal, round and reactive to light. ENT: Pharynx normal. Neck: Normal inspection. Neck supple. No lymph nodes noted. No crepitus CVS: Normal heart rate and rhythm. Pulses normal. Normal S1 and S2 Respiratory: No respiratory distress. Breath sounds normal. No Wheezing. No rales Abdomen: Soft , mild to moderate pain to palpation in the left lower quadrant. No rigidity. No distention : There is brownish discharge, cervical os is closed Skin: Skin warm and dry. Normal skin color. Normal skin turgor. Extremities: No lower extremity edema. No Lacerations. No Rash Neuro: Oriented X 3. No motor deficit. No sensory deficit. Moving all extremities. No slurred speech. CN 2 through 12 grossly intact Psych: calm, cooperative, normal affect Vital Signs: Vital Signs - 24 hr 01/28/25 21:52 01/28/25 22:00 01/29/25 00:00 Temperature 97.7 F 97 F 98.0 F Pulse Rate 75 78 72 Respiratory Rate 20 18 18 Blood Pressure 143/88 H 130/82 134/84 Pulse Oximetry 99 99 99 Oxygen Delivery Method Room Air Room Air Room Air 01/29/25 02:00 01/29/25 03:53 Temperature 98.0 F 97.8 F Pulse Rate 80 70 Respiratory Rate 18 18 Blood Pressure 130/82 134/80 Pulse Oximetry 99 99 Oxygen Delivery Method Room Air Room Air BMI result Body Mass Index 31.4 Course Course Course Narrative: Patient is a A1 who recently got a positive test. Patient states that yesterday she went to her OBGYN, diagnosed with a vaginal infection for which she is using a vaginal cream. Patient states that today the problem is the left lower quadrant pain and vaginal spotting. Labs and ultrasound pending Medical Decision Making Medical Decision Making [facility] Narrative: My interpretation of labs: No significant abnormality in patient's hematology or chemistry, beta hCG is 615, urinalysis shows trace leukocyte esterase On physical exam, patient had brownish discharge, closed cervical os Ultrasound pending Patient is B-positive, RhoGAM is not indicated Ultrasound: Small fluid collection in the fundal endometrium, possibly very early gestational sac with no pole or yolk . I discussed the above-mentioned with the patient. Patient will need serial HCGs in ultrasounds. I discussed with the patient that 1 option is returning in 48 hours over the weekend to get an HCG so she can share this with her OBGYN. They did not option is patient can call her OBGYN today and ask for advice for followups. At this time, patient has no abdominal pain, states she feels better, no vaginal bleeding Differential Diagnosis Differential Diagnoses: The differential diagnosis associated with the presentation includes (Miscarriage, threatened , menstrual period) Admission/Observation Consideration of admission/observation: Escalation of care including admission/observation considered Lab Data [facility] Lab Attestation statement: I reviewed the patient's lab results. 01/28/25 22:08 01/28/25 22:08 Labs: Lab Results 01/28/25 01/28/25 Range/Units 22:08 22:12 WBC 7.4 (4.8-10.8) X10*3/uL RBC 4.39 (4.20-5.50) X10*6/uL Hgb 11.4 L (12.0-16.0) g/dl Hct 33.9 L (37.0-47.0) % MCV 77.2 L (80.0-98.0) fL MCH 26.0 L (27.0-33.0) pg MCHC 33.6 (31.0-35.0) g/dl RDW 17.6 H (11.0-16.0) % Plt Count 312 (160-400) X10*3/uL MPV 9.8 (9.4-12.3) fL Immature Gran % (Auto) 0.3 (0.0-0.4) % Neut % (Auto) 48.8 (45-73) % Lymph % (Auto) 39.6 (20-40) % [place] % (Auto) 8.3 (2-11) % Eos % (Auto) 2.2 (0-4) % Baso % (Auto) 0.8 (0-2) % Lymph # (Auto) 2.9 (1.2-4.9) X10*3/uL [place] # (Auto) 0.6 (0.1-1.2) X10*3/uL Eos # (Auto) 0.2 (0.0-0.4) X10*3/uL Baso # (Auto) 0.1 (0.0-0.2) X10*3/uL Abs Immat Gran (auto) 0.02 (0.00-0.03) X10*3/uL Absolute Neuts (auto) 3.6 (2.0-8.3) x10*3/uL Absolute Nucleated RBC 0.000 (0.0-0.012) X10*3/uL Nucleated RBC % (auto) 0.0 (0.0-0.2) /100WBC Sodium 142 (135-145) mmol/L Potassium 3.8 (3.3-5.1) mmol/L Chloride 109 H (96-108) mmol/L Carbon Dioxide 24 (22-29) mmol/L Anion Gap 13 (12-20) BUN 7 L (9-16) mg/dL Creatinine 0.74 (0.5-1.4) mg/dL Estim Creat Clear Calc 105.4 Estimated GFR > 60 Random Glucose 101 (60-115) mg/dL Calcium 9.7 (8.4-10.2) mg/dL Total Bilirubin 0.2 (0.0-1.0) mg/dL AST 24 (5-31) U/L ALT 29 (0-31) U/L Alkaline Phosphatase 73 (39-117) U/L Total Protein 6.9 (6.5-8.0) g/dL Albumin 4.2 (3.5-5.0) g/dL Beta HCG, Quant 615 mIU/mL Urine Color Yellow Urine Appearance Clear Urine pH >= 9.0 (5.0-9.0) Ur Specific [place] 1.010 (1.005-1.025) Urine Protein Negative (Neg-Trace) mg/dL Urine Glucose (UA) Negative (Negative) mg/dL Urine Ketones Negative (Negative) mg/dL Urine Blood Negative (Negative) Urine Nitrite Negative (Negative) Ur Leukocyte Esterase Trace H (Negative) Urine RBC 0-2 (0-2) /HPF Urine WBC 0-5 (0-5) /HPF Ur Squamous Epith Cells 0-2 (0-2) /HPF Urine Bacteria None Seen (None Seen) Hyaline Casts 0-2 (0-2) /LPF Medications Administered Discontinued Medications Generic Name Dose Route Start Last Admin Trade Name Freq PRN Reason Stop Dose Admin Acetaminophen 975 mg 01/29/25 01:44 01/29/25 01:52 Acetaminophen 325 Mg Tablet PO 01/29/25 01:45 975 mg ONCE ONE Administration Critical Care Time Critical Care Time Critical Care Time: Yes Total Critical Care Time: 40 Attestation: I have personally provided critical care time. Time includes review of lab data, radiology results, discussion with consultants, and monitoring for potential decompensation. Intervention performed as documented. Discharge Plan Discharge Clinical Impression: Threatened miscarriage Patient Disposition: Home, Self-Care Instructions: Threatened Miscarriage (ED) Additional Instructions: Please follow-up with your primary care physician tomorrow. If you have any worsening or new symptoms, please return to the emergency room or call 911 Prescriptions: No Action cetirizine 10 mg tablet 1 tab PO BEDTIME PRN (Reason: Allergy Symptoms) hydroxyzine HCl 25 mg tablet 1 tab PO Q8-10H PRN (Reason: panic attack) metoprolol tartrate 25 mg tablet 1 tab PO BID Rx Instructions: take with food sumatriptan succinate 50 mg tablet 50 mg PO Q2H PRN (Reason: Migraine Headache) Rx Instructions: MAX DOSE 200MG / 24 HOURS albuterol sulfate [ProAir HFA] 90 mcg/actuation HFA aerosol inhaler 1 puff PO Q4-6H PRN (Reason: Shortness Of Breath Or Wheezing) cyanocobalamin (vitamin B-12) 1,000 mcg tablet 1 tab PO DAILY Qty: 90 3RF sennosides [senna] 8.6 mg Tablet 17.2 mg PO BEDTIME PRN (Reason: Constipation) valacyclovir 1 gram Tablet 1,000 mg PO BID ergocalciferol (vitamin D2) [Vitamin D2] 1,250 mcg (50,000 unit) Capsule 1,250 mcg PO QWEEK escitalopram oxalate 10 mg Tablet 15 mg PO DAILY loperamide [Imodium A-D] 2 mg tablet 2 mg PO Q4H PRN (Reason: loose stool) Qty: 20 0RF acetaminophen [Tylenol Extra Strength] 500 mg tablet 1,000 mg PO Q6H PRN (Reason: fever or pain) Qty: 20 0RF ondansetron 4 mg tablet,disintegrating 4 mg PO Q6-8H PRN (Reason: nausea and vomiting) Qty: 14 0RF bismuth subsalicylate 262 mg tablet,chewable 2 tab PO QID 14 Days Qty: 112 0RF metronidazole 500 mg tablet 1,000 mg PO BID Qty: 56 0RF doxycycline hyclate 100 mg capsule 100 mg PO BID 14 Days Qty: 28 0RF ondansetron 4 mg tablet,disintegrating 4 mg PO Q8H PRN (Reason: nausea and vomiting) Qty: 20 0RF verapamil 40 mg tablet 40 mg PO BEDTIME lansoprazole 30 mg capsule,delayed release(DR/EC) 30 mg PO DAILY Qty: 90 3RF Print Language: Frisian
[2025-01-29] VITALS: BP 134/84; PULSE 72; RESP 18; TEMP 36.7; O2SAT 99
[2025-01-29 02:00] VITALS: BP 130/82; PULSE 80; RESP 18; TEMP 36.7; O2SAT 99
--- NOTE | 2025-01-29 03:22 | PC.NURSE ---
Pt returned back from US, reports slight improvement in pain s/p tylenol admin however she is unable to quantify it. The pt is well appearing overall and displays no outward s/s of distress at this time. Pt and bedside visitor awaiting results and dispo; warm blanket given for comfort
[2025-01-29 03:53] VITALS: BP 134/80; PULSE 70; RESP 18; TEMP 36.6; O2SAT 99
[2025-01-29 04:16] VITALS: BP 134/80; PULSE 70; RESP 18; TEMP 36.6; O2SAT 99
== END 2025-01-29 04:20 | disposition home or self-care (01) ==
PROVIDERS: Emergency Provider Emergency Medicine; PCP Registered Nurse
DX: O20.0 Threatened abortion (principal)
CPT/HCPCS: 36415; 76801; 76817; 80053; 81001; 81515; 84702; 85025; 87491; 87591; 99284

== ENCOUNTER → 2025-01-29 02:15 | Outpatient (BNV) | payer MEDICAID, SELFPAY | PROVIDERS: Emergency Provider Emergency Medicine; PCP Registered Nurse; Visit Provider General Practice | DX: O36.80X0 Pregnancy with inconclusive fetal viability, not applicable or unspecified (principal) | CPT/HCPCS: 76801; 76817 ==

== ENCOUNTER 2025-01-30 14:17 | Outpatient (REF) | payer MEDICAID, SELFPAY ==
--- OUTSIDE RECORDS SUMMARY | 2025-01-30 14:20 | XMS_ITS | Clinical Summary ---
Demographics Address [address] [place] [address] Home Phone Preferred Language Pashto Marital Status Religion Affiliation Unknown Race Unknown Ethnic Group or Author Organization [facility] Address [address] [place] [address] Care Team Providers Care Social Media Developer Name Role Phone Unavailable Primary Care Provider [...] Self [address] [place] [address]
--- OUTSIDE RECORDS SUMMARY | 2025-01-30 14:20 | XMS_ITS | Clinical Summary ---
Author Organization [facility] Address [address] [place] [id number] Phone Care Team Providers Care Supervisor Machine Setter Name Role Phone Physician, No Pcp Primary [...] RESULTING AGENCY - 12/13/2018 2:35 PM EDT [id number] THINPREP PAP, IMAGED: NEGATIVE FOR SQUAMOUS INTRAEPITHELIAL [...] Maintenance Insurance MEDICAID - [place] Care Teams Supervisor Machine Setter Relationship Specialty Start Date End Date Physician, No Pcp PCP - General 04/18/24
--- OUTSIDE RECORDS SUMMARY | 2025-01-30 14:20 | XMS_ITS | Encounter Summary ---
Author Organization [facility] Address [address] [place] [address] Care Team Providers Care Splicer Operator Name Role Phone Demetria Chaparro Primary Care Provider [phone] Erin Thibodeaux RN Unavailable [phone] Nessa Gutierrez Unavailable Nessa Gutierrez Unavailable Reason for Visit * Reason Onset Date Comments Results 03/28/2024 Encounter Details Date Type Department Care Team (Late st Contact Info) Description 03/28/2024 Telephone [facility] [address] [place] [address] Demetria Chaparro FNP [address] [place], [place] [phone] Results Social History Tobacco Use Types Packs/Day [...] results: Lab Date when done: 03/27/24 Facility: [facility] Contact pt at [phone] documented in this encounter Plan of Treatment Upcoming Encounters Date Type Department Care Team (Late st Contact Info) Description 02/02/2025 11:00 AM EDT Office Visit [facility] [address] [place] [address] Demetria Chaparro FNP [address] [place] [address] documented as of this encounter Visit Diagnoses Not on filedocumented in this encounter Additional Health Concerns Assessment Noted Time PHQ-9 Depression Total Score: 9 01/21/20 24 10:18 AM EDT documented as of this encounter Care Teams Splicer Operator Relationship Specialty Start Date End Date eDmetria Chaparro FNP [address] [place] [address] PCP - General Family Medicine 02/06/22 Erin Thibodeaux RN [address] [place] [address] Registered Nurse Family Medicine 10/21/24 11/13/24 Nessa Gutierrez 10/21/24 12/19/24 Nessa Gutierrez 12/29/24 12/30/24 Britany Childers Distribution Systems SuperintendentGenerator Repairer 11/12/24 documented as of this encounter
== END 2025-01-30 14:18 | disposition home or self-care (01) ==
LOC: HO.CHCLDS 14:17
PROVIDERS: Visit Provider Registered Nurse
DX: N92.6 Irregular menstruation, unspecified (principal)
CPT/HCPCS: 36415; 84702

== ENCOUNTER 2025-02-01 16:07 | Emergency (ER) | payer MEDICAID, SELFPAY ==
[2025-02-01 16:08] VITALS: BP 127/76; PULSE 80; RESP 16; TEMP 36.5; O2SAT 99; BMI 31.4
--- NOTE | 2025-02-01 16:09 | ED.GENADULT ---
HPI - General Adult General Chief complaint: General Medical Stated complaint: lab work Time Seen by Provider: 02/01/25 17:03 Source: patient, RN notes reviewed and old records reviewed Mode of arrival: ambulatory Limitations: no limitations History of Present Illness ED Provider: Brodie BOWEN narrative: 34-year-old female presents for evaluation of ?I was told to come back to repeat my hCG. ? Patient was seen here 4 days ago on 01/28/2025 for abdominal pain. She found out that she was . Her serum hCG was 615 ar that time. An ultrasound was obtained that shows a small fluid collection in the fundal endometrium possibly an early /gestational sac but no pole or yolk sac was identified. The patient had a repeat hCG 2 days ago that was 1322. She denies any abdominal pain, vaginal bleeding pain She is due to follow up with OBGYN on Sunday at [facility]. She is Related Data Home Medications ?Medication ?Instructions ?Recorded ?Confirmed cetirizine 10 mg tablet 1 tab PO BEDTIME PRN Allergy 10/29/20 09/16/24 Symptoms albuterol sulfate 90 mcg/actuation 1 puff PO Q4-6H PRN Shortness Of 07/20/21 09/16/24 aerosol inhaler (ProAir HFA) Breath Or Wheezing sumatriptan succinate 50 mg tablet 50 mg PO Q2H PRN Migraine Headache 07/20/21 09/16/24 hydroxyzine HCl 25 mg tablet 1 tab PO Q8-10H PRN panic attack 06/24/22 09/16/24 metoprolol tartrate 25 mg tablet 1 tab PO BID 06/24/22 09/16/24 verapamil 40 mg tablet 40 mg PO BEDTIME 06/16/24 09/16/24 ergocalciferol (vitamin D2) 1,250 1,250 mcg PO QWEEK 09/12/24 09/16/24 mcg (50,000 unit) capsule (Vitamin D2) escitalopram oxalate 10 mg tablet 15 mg PO DAILY 09/12/24 09/16/24 sennosides 8.6 mg tablet (senna) 17.2 mg PO BEDTIME PRN Constipation 09/12/24 09/16/24 valacyclovir 1 gram tablet 1,000 mg PO BID 09/12/24 09/16/24 Previous Rx's ?Medication ?Instructions ?Recorded lansoprazole 30 mg capsule,delayed 30 mg PO DAILY #90 caps 06/16/24 release cyanocobalamin (vitamin B-12) 1 tab PO DAILY #90 tabs 06/26/24 1,000 mcg tablet bismuth subsalicylate 262 mg 2 tab PO QID diarrhea 14 days #112 10/14/24 chewable tablet tabs doxycycline hyclate 100 mg capsule 100 mg PO BID 14 days #28 caps 10/14/24 metronidazole 500 mg tablet 1,000 mg (2 x 500 mg) PO BID #56 10/14/24 tabs ondansetron 4 mg disintegrating 4 mg PO Q8H PRN nausea and 10/14/24 tablet vomiting #20 tabs acetaminophen 500 mg tablet 1,000 mg (2 x 500 mg) PO Q6H PRN 12/31/24 (Tylenol Extra Strength) fever or pain #20 tabs loperamide 2 mg tablet (Imodium 2 mg PO Q4H PRN loose stool #20 12/31/24 A-D) tabs ondansetron 4 mg disintegrating 4 mg PO Q6-8H PRN nausea and 12/31/24 tablet vomiting #14 tabs Allergies Allergy/AdvReac Type Severity Reaction Status Date / Time ibuprofen Allergy Mild Gastrointestinal Verified 02/01/25 16:10 Upset Iodinated Contrast Media Allergy Swelling Verified 02/01/25 16:10 shellfish derived Allergy Unknown Verified 02/01/25 16:10 [facility] Past Medical History Medical History Helicobacter pylori (H. pylori) History of cardioversion GERD (gastroesophageal reflux disease) Obesity Depression PAF (paroxysmal atrial fibrillation) Palpitations COVID Migraine Panic attack Anxiety Asthma Surgical History History of esophagogastroduodenoscopy (EGD) H/O umbilical hernia repair (07/23/23) H/O dilation and curettage Family History Family History Maternal Grandfather Skin cancer Paternal Grandmother Colon cancer Social History Social History Household Members: Children Housing: Apartment Are you a primary spiritual care coordinator to a significant other at home: No Do you presently have visiting nurse or other home services: No Alcohol intake: never Comment: counts correct Patient Tobacco Use Status: Former Tobacco user Tobacco use type: Cigarette Years Smoked: 15 Advance Directives: No Advance Directives Information Provided: No Do you have a plan to hurt others: No Plan service: No Current occupational status: unemployed Gender identity: Female Physical Exam ED Vital Signs: Vital Signs - 24 hr 02/01/25 16:08 02/01/25 17:19 Temperature 97.7 F 97.7 F Pulse Rate 80 80 Respiratory Rate 16 16 Blood Pressure 127/76 127/76 Pulse Oximetry 99 99 Oxygen Delivery Method Room Air Room Air BMI result Body Mass Index 31.4 Const General: healthy appearing, comfortable, no acute distress, alert and awake Nutritional Appearance: well nourished Orientation/consciousness: patient oriented x3 HENMT Head: Yes normocephalic and Yes atraumatic Eyes Eyelids: Yes eyelids normal Conjunctivae: conjunctivae normal Sclerae: sclerae normal Corneas: corneas normal Pupils: Equal, round and reactive pupils present EOM: EOMs intact bilaterally Resp Effort & Inspection: normal respiratory effort, able to speak in complete sentences and not labored GI Inspection: No distended Palpation (GI): Soft to palpation, not firm, nontender, no guarding and not rigid Skin General skin exam: elasticity normal Neuro General: patient oriented x3 Cranial nerves: Yes Equal, round and reactive pupils present and Yes Bilaterally intact EOM present Cognition (Neuro): normal cognition Extrem Other: Moving all extremities well without any obvious deformities Course Course Course Narrative: RME, this is a rapid medical exam performed by Everett Calloway please refer to primary provider for complete H&P- 34 year old female presents for evaluation of repeat labs. She was seen here on 01/29/2024 for lower abdominal discomfort. She is found to be with an hCG of 615 and then 2 days later it was 1322. She is requesting an additional hCG she denies any abdominal pain, vaginal discharge. She is due to see OBGYN this coming Sunday at [facility]. The patient is Medical Decision Making Medical Decision Making MDM Narrative: 34-year-old female presents for evaluation of repeat hCG. I reviewed her ultrasound, there was no evidence of ectopic, a gestational sac was seen within the uterus. This likely represents an early . 48 hours later her hCG double from 615 to 1322. Forty there was active around hCG is now 3141 and appears to be rising appropriately. Given that she has no pain, no vaginal bleeding or discharge I do not see any indication to repeat an ultrasound. She will follow up with her OBGYN on Sunday Differential Diagnosis Differential Diagnoses: The differential diagnosis associated with the presentation includes Early Threatened Spontaneous Ectopic less likely Lab Data MDM Lab Attestation statement: I reviewed the patient's lab results. Labs: Lab Results 02/01/25 Range/Units 16:27 Beta HCG, Quant 3141 mIU/mL Discharge Plan Discharge Clinical Impression: Patient Disposition: Home, Self-Care Instructions: (ED) Additional Instructions: Your hormone today is 3141. The hormone is increasing as expected for a healthy . Follow up with your OBGYN doctor on Sunday as discussed. Return for new or worsening symptoms, especially if you develop lower abdominal pain or vaginal bleeding. Prescriptions: No Action cetirizine 10 mg tablet 1 tab PO BEDTIME PRN (Reason: Allergy Symptoms) hydroxyzine HCl 25 mg tablet 1 tab PO Q8-10H PRN (Reason: panic attack) metoprolol tartrate 25 mg tablet 1 tab PO BID Rx Instructions: take with food sumatriptan succinate 50 mg tablet 50 mg PO Q2H PRN (Reason: Migraine Headache) Rx Instructions: MAX DOSE 200MG / 24 HOURS albuterol sulfate [ProAir HFA] 90 mcg/actuation HFA aerosol inhaler 1 puff PO Q4-6H PRN (Reason: Shortness Of Breath Or Wheezing) cyanocobalamin (vitamin B-12) 1,000 mcg tablet 1 tab PO DAILY Qty: 90 3RF sennosides [senna] 8.6 mg Tablet 17.2 mg PO BEDTIME PRN (Reason: Constipation) valacyclovir 1 gram Tablet 1,000 mg PO BID ergocalciferol (vitamin D2) [Vitamin D2] 1,250 mcg (50,000 unit) Capsule 1,250 mcg PO QWEEK escitalopram oxalate 10 mg Tablet 15 mg PO DAILY loperamide [Imodium A-D] 2 mg tablet 2 mg PO Q4H PRN (Reason: loose stool) Qty: 20 0RF acetaminophen [Tylenol Extra Strength] 500 mg tablet 1,000 mg PO Q6H PRN (Reason: fever or pain) Qty: 20 0RF ondansetron 4 mg tablet,disintegrating 4 mg PO Q6-8H PRN (Reason: nausea and vomiting) Qty: 14 0RF bismuth subsalicylate 262 mg tablet,chewable 2 tab PO QID 14 Days Qty: 112 0RF metronidazole 500 mg tablet 1,000 mg PO BID Qty: 56 0RF doxycycline hyclate 100 mg capsule 100 mg PO BID 14 Days Qty: 28 0RF ondansetron 4 mg tablet,disintegrating 4 mg PO Q8H PRN (Reason: nausea and vomiting) Qty: 20 0RF verapamil 40 mg tablet 40 mg PO BEDTIME lansoprazole 30 mg capsule,delayed release(DR/EC) 30 mg PO DAILY Qty: 90 3RF Interventions: ED Discharge Assessment Last Done: 02/01/25 17:19 Discharge Date/Time: 02/01/25 17:20 Print Language: [place] Irish
--- OUTSIDE RECORDS SUMMARY | 2025-02-01 17:12 | XMS_ITS | Clinical Summary ---
Author Organization [facility] Address [address] [place] [phone] Phone Care Team Providers Care Mud Worker Name Role Phone Physician, No Pcp Primary [...] RESULTING AGENCY - 12/13/2018 2:35 PM EDT [id number] THINPREP PAP, IMAGED: NEGATIVE FOR SQUAMOUS INTRAEPITHELIAL [...] Maintenance Insurance MEDICAID - [place] Care Teams Mud Worker Relationship Specialty Start Date End Date Physician, No Pcp PCP - General 04/18/24
--- OUTSIDE RECORDS SUMMARY | 2025-02-01 17:12 | XMS_ITS | Clinical Summary ---
Demographics Address [address] [place] [address] Home Phone Preferred Language Georgian Marital Status Episcopal Affiliation Unknown Race Unknown Ethnic Group or Author Organization [employer] [facility] Address [address] [place] [address] Care Team Providers Care Breaker Off Name Role Phone Unavailable Primary Care Provider [...] Self [address] [place] [address]
[2025-02-01 17:19] VITALS: BP 127/76; PULSE 80; RESP 16; TEMP 36.5; O2SAT 99
== END 2025-02-01 17:20 | disposition home or self-care (01) ==
PROVIDERS: Physician Assistant; Emergency Provider Emergency Medicine; PCP Registered Nurse
DX: R10.9 Unspecified abdominal pain (principal); Z34.90 Encounter for supervision of normal pregnancy, unspecified, unspecified trimester; N93.9 Abnormal uterine and vaginal bleeding, unspecified
CPT/HCPCS: 36415; 84702; 99282; 99283

== ENCOUNTER 2025-02-28 11:17 | Emergency (ER) | payer MEDICAID, SELFPAY ==
[2025-02-28 11:20] VITALS: BP 142/79; PULSE 85; RESP 18; TEMP 36.8; O2SAT 98; BMI 30.8
--- NOTE | 2025-02-28 11:20 | ED_ITS ---
HPI - Headache General Chief Complaint: Headache Stated Complaint: headache 3 days, vomiting Time Seen by Provider: 02/28/25 11:54 Source: patient Mode of arrival: ambulatory Limitations: no limitations History of Present Illness ED Provider: Lennie Fritz APRN HPI Narrative: This is a 35-year-old female who has a history of migraines who used to take Imitrex who presents to the ER with complaints of 3 days of frontal headache with photophobia, phonophobia and nausea with vomiting. Patient reports she tried taking Tylenol this morning but she vomited immediately after. This headache feels similar to her typical migraines. She denies any injury or trauma. She denies any associated neck pain, neck stiffness, fevers, chills. Patient is currently 9 weeks . She is being followed by [facility]. She has had an ultrasound that has confirmed intrauterine . She has no complaints today of abdominal pain or vaginal bleeding. Related Data Home Medications ?Medication ?Instructions ?Recorded ?Confirmed cetirizine 10 mg tablet 1 tab PO BEDTIME PRN Allergy 10/29/20 09/16/24 Symptoms albuterol sulfate 90 mcg/actuation 1 puff PO Q4-6H PRN Shortness Of 07/20/21 09/16/24 aerosol inhaler (ProAir HFA) Breath Or Wheezing sumatriptan succinate 50 mg tablet 50 mg PO Q2H PRN Mi graine Headache 07/20/21 09/16/24 hydroxyzine HCl 25 mg tablet 1 tab PO Q8-10H PRN panic attack 06/24/22 09/16/24 metoprolol tartrate 25 mg tablet 1 tab PO BID 06/24/22 09/16/24 verapamil 40 mg tablet 40 mg PO BEDTIME 06/16/24 ergocalciferol (vitamin D2) 1,250 1,250 mcg PO QWEEK 0 09/12/24 09/16/24 mcg (50,000 unit) capsule (Vitamin D2) escitalopram oxalate 10 mg tablet 15 mg PO DAILY 09/1209/16/24 sennosides 8.6 mg tablet (senna) 17.2 mg PO BEDTIME WA N Constipation 09/12/24 09/16/24 valacyclovir 1 gram tablet 1,000 mg PO BID 09/12/24 Previous Rx's ?Medication ?Instructions ?Recorded lansoprazole 30 mg capsule,delayed 30 mg PO DAILY #90 caps 06/16/24 release cyanocobalamin (vitamin B-12) 1 tab PO DAILY #90 tabs 06/26/24 1,000 mcg tablet bismuth subsalicylate 262 mg 2 tab PO QID diarrhea 14 days #112 10/14/24 chewable tablet tabs doxycycline hyclate 100 mg capsule 100 mg PO BID 14 da ys #28 caps 10/14/24 metronidazole 500 mg tablet 1,000 mg (2 x 500 mg) PO B ID #56 10/14/24 tabs ondansetron 4 mg disintegrating 4 mg PO Q8H PRN nausea and 10/14/24 tablet vomiting #20 tabs acetaminophen 500 mg tablet 1,000 mg (2 x 500 mg) PO Q 6H PRN 12/31/24 (Tylenol Extra Strength) fever or pain #20 tabs loperamide 2 mg tablet (Imodium 2 mg PO Q4H PRN loose stool #20 12/31/24 A-D) tabs ondansetron 4 mg disintegrating 4 mg PO Q6-8H PRN naus ea and 12/31/24 tablet vomiting #14 tabs Allergies Allergy/AdvReac Type Severity Reaction Status Date / Time ibuprofen Allergy Mild Gastrointestinal Verified 02/28/25 11:22 Upset Iodinated Contrast Media Allergy Swelling Verified 02/28/25 11:22 shellfish derived Allergy Unknown Verified 02/28/25 11:22 Review of Systems 2 Review of Systems: Yes all other systems are reviewed and are negative Constitutional: Constitutional: Reports no additional constitutional complaints, Denies body ache(s), Denies chills, Denies fever(s), Reports headache(s) and Denies weakness Eyes: Eyes: Reports no additional eye complaints, Denies change in vision and Reports photophobia ENT: Reports system reviewed and no additional complaints, except as documented, Denies dizziness, Reports headache(s), Denies nasal congestion, Denies nasal discharge and Denies neck pain Cardiovascular: Cardiovascular: Reports no additional cardiovascular complaints, Denies chest pain, Denies leg edema and Denies dyspnea Respiratory: Respiratory: Reports no additional respiratory complaints, Denies cough and Denies dyspnea Gastrointestinal: Gastrointestinal: Reports no additional gastrointestinal complaints, Denies abdominal pain, Denies diarrhea, Reports nausea and Reports vomiting Genitourinary: Genitourinary: Reports no additional female genitourinary complaints and Denies urinary incontinence Musculoskeletal: Musculoskeletal: Reports no additional musculoskeletal complaints, Denies back pain, Denies arthralgias, Denies joint swelling, Denies neck pain, Denies numbness and Denies tingling Integumentary/Breasts: Skin/Breast: Reports system reviewed and no additional complaints, except as docu and Denies rash Neurologic: Reports system reviewed and no additional complaints, except as documented, Denies Abnormal speech present, Denies dizziness, Reports headache(s), Denies numbness, Denies tingling and Denies weakness [facility] Past Medical History Attestation statement: The following information was validated with the patient. Source: old records reviewed and nursing notes reviewed Medical History Helicobacter pylori (H. pylori) History of cardioversion GERD (gastroesophageal reflux disease) Obesity Depression PAF (paroxysmal atrial fibrillation) Palpitations COVID Migraine Panic attack Anxiety Asthma Surgical History History of esophagogastroduodenoscopy (EGD) H/O umbilical hernia repair (07/23/23) H/O dilation and curettage Family History Family History (Reviewed 10/14/24 @ 15:40 by Emigdio Leonardo [facility]) Maternal Grandfather Skin cancer Paternal Grandmother Colon cancer Social History Social History Household Members: Children Housing: Apartment Are you a primary pharmacy customer care specialist to a significant other at home: No Do you presently have visiting nurse or other home services: No Alcohol intake: never Comment: counts correct Patient Tobacco Use Status: Former Tobacco user Tobacco use type: Cigarette Years Smoked: 15 Advance Directives: No Advance Directives Information Provided: Yes Do you have a plan to hurt others: No Plan service: No Current occupational status: unemployed Gender identity: Female Physical Exam 2 Vital Signs: Vital Signs: Last Vital Signs Temp 97.5 F 02/28/25 13:26 Pulse 74 02/28/25 13:26 Resp 18 02/28/25 13:26 BP 125/80 02/28/25 13:26 Pulse Ox 100 09/20/25 13:26 O2 Del Method Room Air 02/28/25 13:26 BMI result Body Mass Index 30.8 Const: General: cooperative, healthy appearing, comfortable and no acute distress Orientation/consciousness: patient oriented x3 Limitations: no limitations HEENT: Head: Yes normal to inspection, No Fry's sign and No raccoon eyes Ears: hearing grossly normal bilaterally and TM's normal bilaterally General nose exam: Normal external nose present Face and sinus: Yes normal facial exam Mouth: Normal oral and palatal mucosa present Throat: Yes posterior oropharynx normal Eyes: General: appearance normal, both eyes and all related structures P upils: Equal, round and reactive pupils present Direct Ophthalmoscopy: p hotophobia Neck: Neck: Yes normal visual inspection, Yes full ROM, Yes no lymphadenopathy and Yes no meningeal signs Chest: Chest palpation & inspection: normal inspection of the chest Resp: Effort & Inspection: normal respiratory effort Auscultation: clear to auscultation bilaterally Cardio: Rate: regular rate Rhythm: regular rhythm Peripheral pulses: P eripheral pulses 2+ throughout GI: Inspection: Yes normal to inspection Palpation (GI): Soft to palpation and nontender Auscultation: normal bowel sounds Back/Spine/Pelvis: Thoracic/Lumbar Spine: thoracic and lumbar spine normal to inspection Skin: General skin exam: no rashes or lesions noted Neuro: General: patient oriented x3, moves all extremities, no meningeal signs, no focal motor deficits and normal sensation to monofilament Cranial nerves: Yes CN's II-XII intact bilaterally, Yes Equal, round and reactive pupils present, Yes Bilaterally intact EOM present, Yes Nystagmus not present, Yes Normal facial strength present and Yes Midline tongue present Cognition (Neuro): normal cognition Speech: No Abnormal speech present Gait exam (Neuro): Normal gait present Motor exam (neuro): 5/5 motor strength present throughout Sensory Exam: Normal double simultaneous stimulation for sensation Extrem: General: Yes normal to inspection Course Course Course Narrative: This is an RME: Additional HPI, ROS, PE not included below will be deferred to primary provider. RME assessment and note performed by: Mirlande Gibbons PA-C This is a [id number]-female, 9 week , with a hx of migraines, asthma, GERD, PAF not on anticoagulation, who presents to the ER with complaints of headache and vomiting x 3 days. Pain is constant, and sharp. She has her first OB appt on sunday. Has had US of this . She is speaking in full sentences under no acute distress. Plan: Labs, viral swabs, further ER eval needed Reevaluation(s) Reevaluation #1: Viral testing is negative. Labs show mild acidosis. This is likely secondary to vomiting. Patient received IV fluids. She is asymptomatic currently, tolerating p.o. and feeling much improved. Therefore will discharge her home. Reviewed worrisome signs and symptoms of when to return to the emergency room. Comfortable plan for discharge home Medications Administered Discontinued Medications Generic Name Dose Route Start Last Admin Trade Name Garret PRN Reason Stop Dose Admin Diphenhydramine HCl 25 mg 02/28/25 12:15 02/28/25 12:27 Diphenhydramine Hcl 50 Mg/Ml Vial IVPUSH 02/28/25 12:16 25 mg ONCE ONE Administration Sodium Chloride 1,000 mls @ 999 mls/hr 02/28/25 12:15 02/28/25 13:32 Ns IV 02/28/25 13:15 Infused .Q1H1M STA Infusion Acetaminophen 1,000 mg in 100 mls @ 400 mls/hr 02/28/25 12:15 02/28/25 12:39 Ofirmev IV 02/28/25 12:29 Infused ONCE ONE Infusion Metoclopramide HCl 10 mg 02/28/25 12:15 02/28/25 12:29 Metoclopramide Hcl 10 Mg/2 Ml Vial IVPUSH 02/28/25 12:16 10 mg ONCE ONE Administration Medical Decision Making Medical Decision Making [facility] Narrative: This is a 35-year-old female who has a history of migraines who used to take Imitrex who presents to the ER with complaints of 3 days of frontal headache with photophobia, phonophobia and nausea with vomiting. Patient reports she tried taking Tylenol this morning but she vomited immediately after. This headache feels similar to her typical migraines. She denies any injury or trauma. She denies any associated neck pain, neck stiffness, fevers, chills. Patient is currently 9 weeks . She is being followed by [facility]. She has had an ultrasound that has confirmed intrauterine . She has no complaints today of abdominal pain or vaginal bleeding. Normal neuro exam with no focal deficit. No meningeal signs or lymphadenopathy. Vitals are stable including blood pressure Patient will have labs, viral testing Will place IV, give IVF, IV Tylenol, Benadryl and Reglan and reassess Differential Diagnosis Differential Diagnoses: The differential diagnosis associated with the presentation includes Migraine Low suspicion for temporal arteritis, pseudotumor cerebri, SAH, meningitis/encephalitis, preeclampsia-based on HPI and clinical exam Admission/Observation Consideration of admission/observation: Escalation of care including admission/observation considered Lab Data [facility] Lab Attestation statement: I reviewed the patient's lab results. 02/28/25 11:36 02/28/25 11:36 Labs: Lab Results 02/28/25 Range/Units 11:36 WBC 6.4 (4.8-10.8) X10*3/uL RBC 4.61 (4.20-5.50) X10*6/uL Hgb 12.1 (12.0-16.0) g/dl Hct 35.8 L (37.0-47.0) % MCV 77.7 L (80.0-98.0) fL MCH 26.2 L (27.0-33.0) pg MCHC 33.8 (31.0-35.0) g/dl RDW 16.2 H (11.0-16.0) % Plt Count 322 (160-400) X10*3/uL MPV 9.5 (9.4-12.3) fL Immature Gran % (Auto) 0.3 (0.0-0.4) % Neut % (Auto) 64.6 (45-73) % Lymph % (Auto) 27.3 (20-40) % [place] % (Auto) 6.1 (2-11) % Eos % (Auto) 1.1 (0-4) % Baso % (Auto) 0.6 (0-2) % Lymph # (Auto) 1.8 (1.2-4.9) X10*3/uL [place] # (Auto) 0.4 (0.1-1.2) X10*3/uL Eos # (Auto) 0.1 (0.0-0.4) X10*3/uL Baso # (Auto) 0.0 (0.0-0.2) X10*3/uL Abs Immat Gran (auto) 0.02 (0.00-0.03) X10*3/uL Absolute Neuts (auto) 4.2 (2.0-8.3) x10*3/uL Absolute Nucleated RBC 0.000 (0.0-0.012) X10*3/uL Nucleated RBC % (auto) 0.0 (0.0-0.2) /100WBC Sodium 136 (135-145) mmol/L Potassium 3.5 (3.3-5.1) mmol/L Chloride 110 H (96-108) mmol/L Carbon Dioxide 19 L (22-29) mmol/L Anion Gap 11 L (12-20) BUN 6 L (9-16) mg/dL Creatinine 0.69 (0.5-1.4) mg/dL Estim Creat Clear Calc 110.9 Estimated GFR > 60 Random Glucose 126 H (60-115) mg/dL Calcium 9.5 (8.4-10.2) mg/dL Magnesium 2.0 (1.6-2.6) mg/dL Total Bilirubin 0.4 (0.0-1.0) mg/dL Direct Bilirubin 0.2 (0.0-0.5) mg/dL AST 22 (5-31) U/L ALT 17 (0-31) U/L Alkaline Phosphatase 56 (39-117) U/L Total Protein 7.1 (6.5-8.0) g/dL Albumin 4.3 (3.5-5.0) g/dL Beta HCG, Quant 227678 mIU/mL COVID-19 (JASPREET) Negative (Negative) COVID-19 Clin Com See Note Influenza Type A (NILTON) Negative (Negative) Influenza Type B (NILTON) Negative (Negative) Influenza A & B Note See Note Independent Historian Clinical information obtained from an independent historian. History obtained from or confirmed by: Spouse Tests considered The following testing was considered but not selected: Normal neuro exam, low suspicion for SAH, no need for CT imagin Prescription Management I considered prescription management with: Pain Medication Discharge Plan Discharge Clinical Impression: Migraine Patient Disposition: Home, Self-Care Instructions: Migraine Headache (ED) Additional Instructions: Your COVID and flu tests are negative Your labs show that you had some mild dehydration and you received IV fluids while here in the emergency room You likely have a migraine Due to her you can only take Tylenol for this. Make sure that you are staying well hydrated, getting plenty of rest and avoiding migraine trigger Follow-up with your outpatient OBGYN Prescriptions: No Action cetirizine 10 mg tablet 1 tab PO BEDTIME PRN (Reason: Allergy Symptoms) hydroxyzine HCl 25 mg tablet 1 tab PO Q8-10H PRN (Reason: panic attack) metoprolol tartrate 25 mg tablet 1 tab PO BID Rx Instructions: take with food sumatriptan succinate 50 mg tablet 50 mg PO Q2H PRN (Reason: Migraine Headache) Rx Instructions: MAX DOSE 200MG / 24 HOURS albuterol sulfate [ProAir HFA] 90 mcg/actuation HFA aerosol inhaler 1 puff PO Q4-6H PRN (Reason: Shortness Of Breath Or Wheezing) cyanocobalamin (vitamin B-12) 1,000 mcg tablet 1 tab PO DAILY Qty: 90 3RF sennosides [senna] 8.6 mg Tablet 17.2 mg PO BEDTIME PRN (Reason: Constipation) valacyclovir 1 gram Tablet 1,000 mg PO BID ergocalciferol (vitamin D2) [Vitamin D2] 1,250 mcg (50,000 unit) Capsule 1,250 mcg PO QWEEK escitalopram oxalate 10 mg Tablet 15 mg PO DAILY loperamide [Imodium A-D] 2 mg tablet 2 mg PO Q4H PRN (Reason: loose stool) Qty: 20 0RF acetaminophen [Tylenol Extra Strength] 500 mg tablet 1,000 mg PO Q6H PRN (Reason: fever or pain) Qty: 20 0RF ondansetron 4 mg tablet,disintegrating 4 mg PO Q6-8H PRN (Reason: nausea and vomiting) Qty: 14 0RF bismuth subsalicylate 262 mg tablet,chewable 2 tab PO QID 14 Days Qty: 112 0RF metronidazole 500 mg tablet 1,000 mg PO BID Qty: 56 0RF doxycycline hyclate 100 mg capsule 100 mg PO BID 14 Days Qty: 28 0RF ondansetron 4 mg tablet,disintegrating 4 mg PO Q8H PRN (Reason: nausea and vomiting) Qty: 20 0RF verapamil 40 mg tablet 40 mg PO BEDTIME lansoprazole 30 mg capsule,delayed release(DR/EC) 30 mg PO DAILY Qty: 90 3RF Referrals: Demetria Chaparro FNP [Primary Care Provider, Family Practice] Print Language: Greek
[2025-02-28 11:43] LABS: MANUAL DIFF FLAG NO
[2025-02-28 11:44] LABS: Hematocrit 35.8 % (37.0-47.0); Hemoglobin 12.1 g/dl (12.0-16.0); Imm Gran Abs Auto 0.02 X10*3/uL (0.00-0.03); Imm Gran Pct Auto 0.3 % (0.0-0.4); Lymphocytes Absolute Auto 1.8 X10*3/uL (1.2-4.9); Mean Corpuscular HGB Conc 33.8 g/dl (31.0-35.0); Mean Corpuscular Hemoglobin 26.2 pg (27.0-33.0); Mean Corpuscular Volume 77.7 fL (80.0-98.0); NRBC Abs Auto 0.000 X10*3/uL (0.0-0.012); NRBC Pct Auto 0.0 /100WBC (0.0-0.2); Platelet Count 322 X10*3/uL (160-400); Red Blood Count 4.61 X10*6/uL (4.20-5.50); White Blood Count 6.4 X10*3/uL (4.8-10.8)
--- OUTSIDE RECORDS SUMMARY | 2025-02-28 11:48 | XMS_ITS | Encounter Summary ---
Author Organization [employer] Address [address] [place] [address] Care Team Providers Care Flame Degreaser Name Role Phone Demetria Chaparro Primary Care Provider [phone] Nessa Gutierrez Unavailable Nessa Gutierrez Unavailable Reason for Visit * Reason Onset Date Comments Nurse Triage 12/08/2024 Encounter Details Date Type Department Care Team (Late st Contact Info) Description 12/08/2024 Telephone [facility] [address] [place] [address] Demetria Chaparro FNP [address] [place], [place] [id number] Nurse Triage Social History Tobacco Use Types [...] Telephone Encounter - Bridget Coronado RN - 12/08/2024 3:10 PM EDT Triage call Pt reports low back pain for last 2 days which radiates to the middle of abdomen. Pt denies injury, heavy lifting or new exercise. Pt reports that this back pain has come before related to either UTI or . Pt reports slight burning with urination, denies frequency, odor. Pt reports increased vaginal discharge white color. Pt has just finished period. Pt is advised to increaseliquids to 6-8 glasses daily and if test obtained use first urine in the morning. Pt agrees. Pt is advised to come to be seen in [facility] today open till 8pm. No apts available in [facility] today or tomorrow. Insurance is verified as active. Pt agrees with disposition. Protocol Used: Back Pain (Adult) Protocol-Based Disposition: See in Office or Video Visit within 3 Days Video visit not offered Positive Triage Questions: * Moderate back pain (e.g., interferes with normal activities) and present > 3 days * Patient wants to be seen * All higher-acuity triage questions were negative Care Advice Discussed: * Reassurance and Education - Back Pain * Sleep * Reasons To Call Back - Fever occurs - Numbness or weakness occurs - Loss of control of your bladder or bowel - Severe pain not better after taking pain medicines - Pain begins to shoot into the leg - Pain lasts over 2 weeks - Pain becomes worse - You become worse * Telephone Encounter - Peter Gardner - 12/08/2024 2:48 PM EDT Symptoms: Back Pain - Not From Injury, Nausea But No Vomiting Outcome: Transfer to a nurse or provider NOW! Reason: Age over 30: sudden AND severe upper back pain The caller accepted this outcome. documented in this encounter Plan of Treatment Not on file documented as of this encounter Visit Diagnoses Not on filedocumented in this encounter Additional Health Concerns Assessment Noted Time PHQ-9 Depression Total Score: 11 024 11:19 AM EST documented as of this encounter Care Teams Flame Degreaser Relationship Specialty Start Date End Date Demetria Chaparro FNP [address] [place] [id number] PCP - General Family Medicine 02/06/22 Nessa Gutierrez 10/21/24 12/19/24 Nessa Gutierrez 12/29/24 12/30/24 Britany Childers Barrel Rifler BroachWardrobe Specialist 11/12/24 documented as of this encounter
--- OUTSIDE RECORDS SUMMARY | 2025-02-28 11:48 | XMS_ITS | Clinical Summary ---
Author Organization [facility] Address [address] [place] [phone] Phone Care Team Providers Care Steel Die Printer Name Role Phone Physician, No Pcp Primary [...] 05/14/2022 Social Influencers of Health Screening 05/14/2022 Cervical Cancer Screening: P ap Smear 05/26/2024 05/26/2021, 12/05/2018 Depression Screening 06/11/2024 COVID-19 Vaccine (1 - 2023-2 5 season) 2025 Influenza Vaccine (#1) 2025 , 04/08/2019 Cholesterol [...] RESULTING AGENCY - 12/13/2018 2:35 PM EDT [id number] THINPREP PAP, IMAGED: NEGATIVE FOR SQUAMOUS INTRAEPITHELIAL [...] Maintenance Insurance MEDICAID - [place] Care Teams Steel Die Printer Relationship Specialty Start Date End Date Physician, No Pcp PCP - General 04/18/24
--- OUTSIDE RECORDS SUMMARY | 2025-02-28 11:48 | XMS_ITS | Clinical Summary ---
Demographics Address [address] [place] [address] Home Phone Preferred Language Jamaican Marital Status Mandaen Affiliation Unknown Race Unknown Ethnic Group or Author Organization [facility] Address [address] [place] [address] Care Team Providers Care Director Of Group Sales Name Role Phone Unavailable Primary Care Provider [...] Self [address] [place] [address]
--- OUTSIDE RECORDS SUMMARY | 2025-02-28 11:48 | XMS_ITS | Clinical Summary ---
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 12/08/19 22 Active traZODone (Desyrel) 50 MG tablet Take 1 tablet by mouth at bed time. Active metoprolol tartrate (Lopressor) 25 MG tablet Take 25 mg by mouth with breakfast and with evening meal. 07/04/19 23 Active hydrOXYzine HCl (Atarax) 25 MG tablet Take 1 tablet (25 mg) by mouth every 8 (eight) hours. 90 tablet 2 10/31/19 23 Active fluticasone (Flonase) 50 MCG/ACT nasal sprayIndication s:Seasonal allergic rhinitis due to pollen Administer 1-2 sprays into each nostril Once per day. Shake gently. Before first use, prime pump. After use, clean tip and replace cap. 16 g 3 01/21/20 24 Active acetaminophen (Tylenol) 500 MG tabletIndicatio ns:Migraine without aura and without status migrainosus, not intractable Take 1-2 tablets (500-1,000 mg) by mouth every 8 (eight) hours if needed (pain or fever). 100 tablet 3 01/21/20 24 Active albuterol 108 (90 Base) MCG/ACT inhalerIndicati ons:Mild intermittent asthma without complication Inhale 2 puffs every 6 (six) hours. 18 g 3 01/21/20 24 Active fluticasone furoate (Arnuity Ellipta) 200 MCG/ACT inhalerIndicati ons:Mild intermittent asthma without complication Inhale 1 puff Once per day. Rinse mouth with water after use to reduce aftertaste and incidence of candidiasis. Do not swallow. 1 each 11 01/21/20 24 Active divalproex (Depakote ER) 250 MG 24 hr tabletIndicatio ns:Migraine without aura and without status migrainosus, not intractable Take 1 tablet (250 mg) by mouth at bedtime. Do not crush, chew, or split. 90 tablet 01/21/20 24 Active ondansetron (Zofran) 4 MG tabletIndicatio ns:Migraine without aura and without status migrainosus, not intractable TAKE 1 TABLET BY MOUTH EVERY DAY NEEDED FOR NAUSEA 30 tablet 3 01/21/20 24 Active verapamil (Calan) 40 MG tabletIndicatio ns:Frequent PVCs Take 1 tablet (40 mg) by mouth at bedtime. 90 tablet 01/21/20 24 Active lidocaine (Lidoderm) 5 % patch Apply 1 patch topically Once per day. Leave on for 12 hours. 30 patch 3 01/21/20 24 Active Cyanocobalamin 1000 MCG capsuleIndicati ons:Routine health maintenance Take 1 capsule by mouth everyday on empty stomach. 90 capsule 3 01/21/20 24 Active SUMAtriptan (Imitrex) 50 MG tabletIndicatio ns:Migraine without aura and without status migrainosus, not intractable Take 1 tablet (50 mg) by mouth if needed each day for migraine for up to 1 dose. 9 tablet 01/21/20 24 Active lansoprazole (Prevacid) [address] capsuleIndicati ons:Gastritis, presence of bleeding unspecified, unspecified chronicity, unspecified gastritis type Take 30 mg by mouth Once per day. 12/06/19 24 Active docusate sodium (Colace) 100 MG capsule Take 200 mg by mouth at bedtime. 12/18/19 24 Active busPIRone (Buspar) 15 MG tablet Take 1 tablet three times per day (700am, 100pm, 700pm) 12/06/19 24 Active FLUoxetine (PROzac) 40 MG capsule Take 40 mg by mouth Once per day. 01/02/20 24 Active risperiDONE (RisperDAL) 0.5 MG tablet Take 0.5 mg by mouth at bedtime. 12/06/19 24 Active norethindrone (Micronor) 0.35 MG tablet Take 1 tablet by mouth Once per day. 12/18/19 24 Active clotrimazole (Lotrimin) 1 % cream APPLY TO THE AFFECTED AREA(S) TWICE DAILY FOR FOURTEEN DAYS 12/18/19 24 Active cetirizine (ZyrTEC) 10 MG tabletIndicatio ns:Seasonal allergic rhinitis due to pollen Take 1 tablet (10 mg) by mouth Once per day. 90 tablet 3 04/21/20 24 Active ferrous sulfate 325 (65 Fe) MG EC tabletIndicatio ns:Microcytic anemia Take 1 tablet (325 mg) by mouth 2 times daily. Do not crush, chew, or split. 60 tablet 1 02/03/20 25 Active cholecalciferol VITAMIN D (Vitamin D-3) 50 MCG (1999) capsuleIndicati ons:Microcytic anemia Take 1 capsule (50 mcg) by mouth Once per day. 90 capsule 3 02/03/20 25 Active hydrocortisone 2.5 % creamIndication s:Dermatitis Apply pea sized amount to skin bid for 2 weeks 15 g 02/03/20 25 Active famotidine (Pepcid AC) 10 MG tabletIndicatio ns:Gastroesopha geal reflux disease, unspecified whether esophagitis present Take 1-2 tablets (10-20 mg) by mouth if needed in the morning and at bedtime for heartburn or indigestion. 120 tablet 1 02/03/20 25 026 Active pyridoxine (Vitamin B-6) 25 MG tabletIndicatio ns:Morning sickness Take 1 tablet (25 mg) by mouth if needed in the morning, at noon, in the evening, and at bedtime (morning sickness). 60 tablet 2 02/03/20 25 026 Active ferrous sulfate 325 (65 Fe) MG EC tablet Take 325 mg by mouth 2 times daily. Do not crush, chew, or split. 025 Discontinued(R eorder (will not trigger notification to Pharmacy)) cholecalciferol VITAMIN D (Vitamin D-3) 50 MCG (1999) capsule Take 1 capsule (50 mcg) by mouth Once per day. 90 capsule 3 04/21/20 24 025 Discontinued(R eorder (will not trigger notification to Pharmacy)) Active Problems Problem Noted Date Diagnosed Date Atrial fibrillation 06/27/2024 Overview (06/27/2024): 06/14/24: [facility] ED eval for palpitations, found to [...] Plan (01/21/2024 5:33 PM EDT): Followed by Cards - Dr. Walker Continues metoprolol 25mg BID and verapamil 40mg nightly Reports well controlled while taking medications Gastritis 10/09/2023 Overview (01/21/2024): Followed by [facility] Continues on lansoprazole 30mg daily Assessment & Plan (01/21/2024 5:25 PM EDT): Plan for EGD for further eval Umbilical hernia 10/09/2023 Overview (01/21/2024): Repaired by [facility] Surgeons - Dr. Woo 07/23/23 Umbilical hernia repair with mesh Migraine without aura 05/31/2023 Overview (04/21/2024): Previously following with [facility] - Dr. Navarro Continues depakote 250mg nightly and sumatriptan PRN Previous med trials: topiramate. Did not experience therapeutic effect Assessment & Plan (04/21/2024 8:53 PM EST): -Referral to [facility] Neuro sent 04/21/24 Assessment & Plan (05/31/2023 9:57 AM EST): -Referral updated 05/31/23 Cobalamin deficiency 07/04/2022 Overview (01/21/2024): Continues on cyanocobalamin 1000 mcg capsule daily Re-check vit D level Gastroesophageal reflux disease without esophagi tis 07/04/2022 Overview (08/14/2024): Continues following with [facility] - MONSTER Chang Cont Lansoprazole Assessment & Plan (08/14/2024 3:58 [...] anxiety and depressive disorder 07/04/2022 Overview (10/15/2022): Following with [facility] - weekly sessions with therapist, monthly with psychiatrist Denies SI/HI/thoughts of self harm Assessment & Plan (01/21/2024 5:26 PM EDT): - Offered support around grief counseling. Pt reports good support with family and friends. Will follow up PRN. Continues with current med regimen: Trazodone 50mg nightly Hydroxyzine 25mg Q8H PRN Fluoxetine 10mg nightly Buspirone 5mg BID Assessment & Plan (11/06/2022 3:00 PM EDT): Continues with current med regimen: Trazodone 50mg nightly Hydroxyzine 25mg Q8H PRN Fluoxetine 10mg nightly Buspirone 5mg BID Assessment & Plan (07/09/2022 6:22 PM EST): Continue with med management through psych team Microcytic anemia 06/03/2019 Overview (02/02/2025): Lab Results Component Value Date HGB 11.4 (L) 01/28/2025 HGB 11.1 (L) 01/17/2025 HGB 12.0 12/31/2024 - Microcytic anemia with ovalocytes seen on peripheral smear - Continues with ferrous sulfate, Vit D, Vit B12 - Established with [facility] Heme/Onc Jun 2024 - Dr. Sidhu. Plan: cont PO iron w/ Vit C, cont Vit D. If counts worsen or unable to tolerate oral iron, she will be prescribed parenteral iron therapy Assessment & Plan (02/02/2025 1:42 PM EDT): - Vit D and iron supplement refills sent Polyp of corpus uteri Overview (07/09/2022): -Pelvic ultrasound 01/2022 done to f/u on left ovarian cyst shows resolution of cyst, possible endometrial polyp. -Pap NIL/HPV neg, GC/Chlamydia/trichomonas neg 05/2021. -Referred to [facility] Jan 2022 Hyperplasia of endometrium determined by biopsy Assessment & Plan (01/21/2024 5:14 PM EDT): EMB 12/19/[address] Kayla Vaughn at [facility] Impression: secretory endometrium Assessment & Plan (10/15/2022 10:40 AM EDT): EMB December 2021 through [facility] Requested notes of latest [facility] visit, referral for follow up if needed Resolved Problems Problem Noted Date Diagnosed Date Resolved Date History of Helicobacter pylori infection 01/21/2024 09/14/2024 Assessment & Plan (01/21/2024 5:16 PM EDT): Tx by [facility] - MONSTER Chang. Unable to tolerate [...] Encounters Date Type Department Care Team Description 02/28/2025 Orders Only GENERIC EXTERNAL DATA DEPARTMENT Provider, Generic External Data 02/02/2025 11:00 AM EDT Office Visit [facility] [address] [place] [address] Demetria Chaparro FNP Less than 8 weeks gestation of (Primary Dx); Dermatitis; Gastroesophageal reflux disease, unspecified whether esophagitis present; Microcytic anemia; Morning sickness 02/02/2025 Travel 01/29/2025 Telephone [facility] [address] [place] [address] Demetria Chaparro FNP ER Follow-up 01/29/2025 Travel 01/28/2025 Orders Only GENERIC EXTERNAL DATA DEPARTMENT Provider, Generic External Data 01/27/2025 Telephone [facility] [address] [place] [address] Demetria Chaparro FNP Nurse Triage 01/20/2025 Telephone [facility] [address] [place] [address] Demetria Chaparro FNP ER Follow-up 01/18/2025 Orders Only GENERIC EXTERNAL DATA DEPARTMENT Provider, Generic External Data 01/17/2025 Orders Only GENERIC EXTERNAL DATA DEPARTMENT Provider, Generic External Data 01/14/2025 Telephone [facility] [address] [place] [address] Demetria Chaparro FNP Nurse Triage 01/07/2025 10:00 AM EDT Office Visit [facility] [address] [place] [address] Tien, Bernadette, OD Hyperopia of both eyes (Primary Dx) 01/05/2025 3:00 PM EDT Office Visit [facility] [address] [place] [address] Maggie Cm FNP BMI 29.0-29.9,adult (Primary Dx); Hepatic steatosis; Constipation, unspecified constipation type 01/05/2025 Travel 01/01/2025 Telephone [facility] [address] [place] [phone] Demetria Chaparro FNP Nurse Triage 12/31/2024 Orders Only GENERIC EXTERNAL DATA DEPARTMENT Provider, Generic External Data 12/30/2024 Patient Outreach 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 [address] [place] [address] Demetria Chaparro HAIRSPRING ADJUSTER Care Coordination ([facility] ED/F/U) 12/29/2024 Patient Outreach [facility] [address] [place] [address] Demetria Chaparro FNP Care Coordination ([facility] /Chart Review) 12/29/2024 Patient Outreach [address] [address] Demetria Chaparro FNP 12/28/2024 Orders Only GENERIC EXTERNAL DATA DEPARTMENT Provider, Generic External Data 12/21/2024 Results Follow-Up [facility] [address] [place] [address] Demetria Chaparro FNP hCG, Total, Quantitative 12/19/2024 Patient Outreach [facility] [address] [place] [address] Demetria Chaparro FNP Care Coordination (C3/CM Outreach) 12/16/2024 Telephone [facility] [address] [place] [address] Demetria Chaparro FNP Lab Orders 12/09/2024 Patient Outreach [facility] [address] [place] [address] Demetria Chaparro, HAIRSPRING ADJUSTER Care Coordination (C3/CM Outreach) 12/08/[address] [address] Demetria Chaparro FNP Nurse Triage from Last 3 Months Immunizations Immunization Administration Dates Next Due Influenza Injectable Quadriv [...] Packs/Day Years Used Date Smoking Tobacco: Never Passive Smoke Exposure: Never Smokeless Tobacco: Never Tobacco Cessation:Counseling Given: [...] Sign Reading Time Taken Comments Blood Pressure 116/74 02/02/2025 11:04 AM EDT Pulse 72 02/02/2025 11:04 AM EDT Temperature 36.7 C (98 F) 02/02/2025 11:04 AM EDT Respiratory Rate 20 02/02/2025 11:04 AM EDT Oxygen Saturation 98% 01/05/2025 2:34 PM EDT Inhaled Oxygen Concentration - - Weight 80.3 kg (177 lb) 02/02/2025 11:04 AM EDT Height 163.2 cm (5' 4.25 ) 01/05/2025 2:34 PM ED T Body Mass Index 30.15 01/05/2025 2:34 PM EDT Plan of Treatment Health Maintenance Due Date Last Done Comments Dental Oral Exam 1990 Dental Prophylaxis 1990 Dental X-Ray: Bitewings 1990 Dental X-Ray: Full Mouth 1990 Family Planning (PISQ) 02/19/2003 HPV Vaccines (1 - 3-dose series) 02/19/2003 Hepatitis A Vaccines (1 of 2 - Risk 2-dose series) 02/19/2007 Pneumococcal Vaccine: Pediatrics (0 to 5 Years) and At-Risk Patients (6 to 49) Years (1 of 2 - PCV) 02/19/2007 Pap Smear 05/26/2024 05/26/2021, 05/11, 05/22/2021 Depression Monitoring 10/19/2024 04/21/2024, 024 COVID-19 Vaccine ( season) 2025 Influenza Vaccine (#1) 2025 , 04/08/2019, 04/30/2013, Additional history exists Alcohol/Substance Use Screening 04/21/2025 04/21/2024 SDOH Screening 04/21/2025 04/21/2024 Disability Screening 01/29/2026 01/29/2025 Tobacco Screening 02/02/2026 02/02/2025 Cervical Cancer Screening 05/22/2026 HPV/Cotest 05/22/2026 05/22/2021 DTaP/Tdap/Td Vaccines (3 - Td or Tdap) 03/20/2029 03/20/2019, 08/11/2011 Zoster Vaccines (1 of 2) 02/19/2038 RSV Patients and Patients Aged 60 years or older (1 - 1-dose 75+ series) 02/19/2063 HIV Screening Completed 01/24/2024, 09/10, 08/21/2019 Hepatitis C Screening Completed 01/24/2024 , 10/02/2022, 08/21/2019 HIB Vaccines Aged Out No longer eligi [...] Procedure Name Priority Date/Time Associated Diagnosis Comments CBC WITH AUTO DIFFERENTIAL Routine 02/28/2025 11:36 AM EDT HCG, TOTAL, QN Routine 01/30/2025 2:19 PM EDT Missed menses US OB PELVIS TRANSVAGINAL Routine 01/29/2025 3:53 AM EDT C.TRACHOMATIS/N. GONORRHOEAE DNA PROBE Routine 01/28/2025 11:57 PM EDT WET PREP, GENITAL Routine 01/28/2025 11: 57 PM EDT URINALYSIS, COMPLETE, WITH REFLEX TO CULTURE Routine 01/28/2025 10:12 PM EDT HCG, TOTAL, QN Routine 01/28/2025 10:08 PM EDT COMPREHENSIVE METABOLIC PANEL Routine 01/28/2025 10:08 PM EDT CBC WITH AUTO DIFFERENTIAL Routine 01/28/2025 10:08 PM EDT US PELVIS TRANSVAGINAL Routine 1:08 AM EDT URINALYSIS, COMPLETE, WITH REFLEX TO CULTURE Routine 01/18/2025 12:23 AM EDT HCG, QL, URINE Routine 01/18/2025 12:23 AM EDT BASIC METABOLIC PANEL Routine 01/17/2025 8:44 PM EDT CBC Routine 01/17/2025 8:44 PM EDT SARS COV2/INFLUENZA A/B AND RSV RNA QL NAAT Routine 01/17/2025 8:[address] ABDOMEN PELVIS WO CONTRAST Routine 12/31/2024 1:04 PM EDT SARS COV2/INFLUENZA A/B AND RSV RNA QL NAAT Routine 12/31/2024 12:33 PM EDT HCG, TOTAL, QN Routine 12/31/2024 12:10 PM EDT COMPREHENSIVE METABOLIC PANEL Routine 12/31/2024 12:10 PM EDT CBC WITH AUTO DIFFERENTIAL Routine 12/31/2024 12:10 PM EDT XR CHEST 2 VIEWS Routine 12/28/2024 11:3 6 PM EDT HIGH SENSITIVITY TROPONIN I Routine 12/28/2024 10:27 PM EDT HCG, TOTAL, QN Routine 12/28/2024 10:27 PM EDT COMPREHENSIVE METABOLIC PANEL Routine 12/28/2024 10:27 PM EDT CBC WITH AUTO DIFFERENTIAL Routine 12/28/2024 10:27 PM EDT HCG, TOTAL, QN Routine 12/18/2024 2:09 PM EDT Missed menses HEPATITIS C VIRAL RNA, QUANTITATIVE, REAL-TIME PCR [...] Relevant to Health Maintenance Results * (ABNORMAL) CBC auto differential (02/28/2025 11:36 AM EDT) Only the most recent of4 resultswithin the time period is included. White Blood Count 6.4 4.8 - 10.8 X10*3/uL [facility] Red Blood Count 4.61 4.20 - 5.50 X10*6/uL [facility] Hemoglobin 12.1 12.0 - 16.0 g/dl [facility] Hematocrit 35.8(L) 37.0 - 47.0 % [facility] Mean Corpuscular Volume 77.7(L) 80.0 - 98.0 fL [facility] Mean Corpuscular Hemoglobin 26.2(L) 27.0 - 33.0 pg [facility] Mean Corpuscular HGB Conc 33.8 31.0 - 35.0 g/dl [facility] Red Cell Distribution Width 16.2(H) 11.0 - 16.0 % [facility] Platelet Count 322 160 - 400 X10*3/uL [facility] Mean Platelet Volume 9.5 9.4 - 12.3 fL [facility] Neutrophils Percent Auto 64.6 45 - 73 % [facility] Imm Gran Pct Auto 0.3 0.0 - 0.4 % [facility] Lymphocytes Percent Auto 27.3 20 - 40 % [facility] Monocytes Percent Auto 6.1 2 - 11 % [facility] Eosinophils Percent Auto 1.1 0 - 4 % [facility] Basophils Percent Auto 0.6 0 - 2 % [facility] NRBC Pct Auto 0.0 0.0 - 0.2 /100WBC [facility] Neutrophils Absolute Auto 4.2 2.0 - 8.3 x10*3/uL [facility] Imm Gran Abs Auto 0.02 0.00 - 0.03 X10*3/uL [facility] Lymphocytes Absolute Auto 1.8 1.2 - 4.9 X10*3/uL [facility] Monocytes Absolute Auto 0.4 0.1 - 1.2 X10*3/uL [facility] Eosinophils Absolute Auto 0.1 0.0 - 0.4 X10*3/uL [facility] Basophils Absolute Auto 0.0 0.0 - 0.2 X10*3/uL [facility] NRBC Abs Auto 0.000 0.0 - 0.012 X10*3/uL [facility] 02/28/2025 11:3 6 AM EDT 02/28/2025 11:42 AM EDT us Generic External Data Provider LAB BLOOD ORDERAB LES Final Result [facility] [address] [place] [address] [phone] * hCG, Total, Quantitative (01/30/2025 2:19 PM EDT) Only the most recent of5 resultswithin the time period is included. HCG Quantitative 1,322 mIU/mL [facility] Comment:Weeks post LMP Appro ximate hCG(Last Menstrual Period) Range (mIU/ml)3 - 4 weeks 9 - 1304 - 5 weeks 75 - 2,6005 - 6 weeks 850 - 20,8006 - 7 weeks 4000 - 100,2007 - 12 weeks 11,500 - 289,17643 - 16 weeks 18,300 - 137,34993 - 29 weeks (2nd trimester) 1,400 - 53,19475 - 41 weeks (3rd trimester) 940 - 60,000The [place] B- hCG assay is used for the early detection ofpregnancy; it cannot be used to diagnose any conditionunrelated to . If a B-hCG level is not supportedby the clinical evidence, results should be confirmed by analternative method (qualitative urine hCG, for example). Blood Venous blood specimen / Unknown 01/30/2025 2:19 PM EDT 01/30/2025 3:56 PM EDT us Demetria FLORES LAB BLOOD ORDERABLES Final Res ult Performing Organization Address City/State/[facility] Co de Phone Number [facility] [address] [place] [address] [phone] * US OB Pelvis with Transvaginal (01/29/2025 3:53 AM EDT) Anatomical Region Laterality Modality Pelvis Ultrasound 01/29/2025 3:53 AM EDT Narrative 01/29/2025 3:55 AM EDT [address] [address] Ultrasound Report Signed Patient: Rafita Kuo MR#: [id number] : 1990 Acct:[id number] Age/Sex: 34 / F ADM Date: 01/28/25 Loc: HO.ED Attending Dr: Ordering Physician: Bianka Sheikh MD Date of Service: 01/29/25 Procedure(s): US OB pelvic and transvaginal Accession Number(s): [id number] cc: Bianka Sheikh MD; Demetria Chaparro CLINICAL HISTORY: abd pain, vaginal bleeding, r o ectopic US OB 1st trimester transabdominal Comparison: US/SR - US PELVIC COMPLETE - 01/17/25 23:39 EDT Findings: Small fluid collection is in the fundal endometrial canal. No yolk sac or pole identified at this time. Uterus is 10.1 cm long. Endometrial stripe is thickened up to 2 cm. Right ovary is 1.5 x 1.4 x 1.6 cm. Left ovary is 3.4 x 2.4 x 2.1 cm. Left corpus luteal cyst measures up to 1.5 cm. No free fluid in the cul-de-sac IMPRESSION: Small fluid collection in the fundal endometrium, possibly very early gestational sac with no pole or yolk sac identified at this time. Recommend close clinical and ultrasound follow-up with monitoring of serial quantitative beta hCG. This document has been electronically signed by: Leighton Son MD, PHD on 01/29/2025 03:53:36 Dictated By: Leighton Son MD Signed By: <Electronically signed by Leighton Son MD in OV> 01/29/25353 DD/ 2 TD/TT: 01/29/25352 Neurological Physiotherapist: Procedure Note Donotuseinterpreter, Image - 01/29/2025 [place] [address] Ultrasound Report Signed Patient: Rafita Kuo#: [id number] : 1990Acct:[id number] Age/Sex: 34 / FADM Date: 01/28/25 Loc: .ED Attending Dr: Ordering Physician: Bianka Sheikh MD Date of Service: 01/29/25 Procedure(s): US OB pelvic and transvaginal Accession Number(s): [id number] cc: Bianka Sheikh MD; Demetria Chaparro CLINICAL HISTORY: abd pain, vaginal bleeding, r o ectopic US OB 1st trimester transabdominal Comparison: US/SR - US PELVIC COMPLETE - 01/17/25 23:39 EDT Findings: Small fluid collection is in the fundal endometrial canal. No yolk sac or pole identified at this time. Uterus is 10.1 cm long. Endometrial stripe is thickened up to 2 cm. Right ovary is 1.5 x 1.4 x 1.6 cm. Left ovary is 3.4 x 2.4 x 2.1 cm. Left corpus luteal cyst measures up to 1.5 cm. No free fluid in the cul-de-sac IMPRESSION: Small fluid collection in the fundal endometrium, possibly very early gestational sac with no pole or yolk sac identified at this time. Recommend close clinical and ultrasound follow-up with monitoring of serial quantitative beta hCG. This document has been electronically signed by: Leighton Son MD, PHD on 01/29/2025 03:53:36 Dictated By: Leighton Son MD Signed By: <Electronically signed by Leighton Son MD in OV> 01/29/254 DD/ 2 TD/TT: 01/29/25352 Neurological Physiotherapist: [facility] External Provider IMG US PROCEDURES Final Result * C.TRACHOMATIS/N. GONORRHOEAE DNA PROBE (01/28/2025 11:57 PM EDT) CTNG Ref Lab [facility] Comment:TEST NOT PERFORMEDSp ecimen transport devicecontained cleaning swab insteadof the collection swab.THIS TEST WAS PERFORMED AT:[facility] [address] [id number] WOODS MD NG Ref Lab [facility] CTNG Ref Note [facility] 01/28/2025 11:5 7 PM EDT 01/29/2025 8:31 AM EDT Narrative [facility] - 02/12/2025 12:03 PM EDT SPURCE=VAG/CERV Generic External Data Provider LAB MICROBIOLOGY - GENERAL ORDERABLES Final Result [facility] [address] [place] [address] [phone] * Wet prep, genital (01/28/2025 11:57 PM EDT) Vaginal Fluid Vaginal structure / Unknown 01/28/2025 11:57 PM EDT 01/29/2025 Comment:Vaginal Narrative [facility] - 01/29/2025 12:44 AM EDT Trichomonas Prep Direct Microscopic Exam Trichomonas Prep No trichomonads or yeast seen Specimen Source: Vaginal us Generic External Data Provider LAB MICROBIOLOGY - GENERAL ORDERABLES Final Result Performing Organization Address City/[facility]/ZIP Co de Phone Number [facility] [address] [place] [address] [phone] * (ABNORMAL) Urinalysis, Complete, with Reflex to Culture (01/28/2025 10:12 PM EDT) Only the most recent of2 resultswithin the time period is included. Color Urine Yellow [facility] Appearance Urine Clear [facility] PH >=9.0 5.0 - 9.0 [facility] Glucose Urine UA Negative Negative mg/dL [facility] Urine Blood Negative Negative [facility] Specific [place] - Urine 1.010 1.005 - 1.025 [facility] Urine Protein Negative Neg-Trace mg/dL [facility] Urine Ketones Negative Negative mg/dL [facility] Nitrite Urine Negative Negative [facility] Leukocyte Esterase Urine Trace(A) Negative [facility] RBC Urine 0-2 0 - 2 /HPF [facility] Urine WBC 0-5 0 - 5 /HPF [facility] Urine Squamous Epithelial Cell 0-2 0 - 2 /HPF [facility] Urine Bacteria None Seen None Seen [facility] Hyaline Casts, Urine 0-2 0 - 2 /LPF [facility] 01/28/2025 10:1 2 PM EDT 01/28/2025 10:14 PM EDT Narrative [facility] - 01/28/2025 10:24 PM EDT [id number], Clean Catch us Generic External Data Provider LAB URINE ORDERAB LES Final Result Performing Organization Address [facility]/ZIP Co de Phone Number [facility] [address] [place] [address] [phone] * (ABNORMAL) Comprehensive Metabolic Panel (01/28/2025 10:08 PM EDT) Only the most recent of3 resultswithin the time period is included. Sodium 142 135 - 145 mmol/L [facility] Potassium 3.8 3.3 - 5.1 mmol/L [facility] Chloride 109(H) 96 - 108 mmol/L [facility] Carbon Dioxide 24 22 - 29 mmol/L [facility] Anion Gap 13 12 - 20 [facility] Urea Nitrogen (BUN) 7(L) 9 - 16 mg/dL [facility] Creatinine, Serum 0.74 0.5 - 1.4 mg/dL [facility] Creatinine Clr Calc Pharmacy 105.4 [facility] Comment:Provided height and weight: 160.02 cm,80.286 kg.eGFR (calculated from the MDRD study equation) and eCrCl(calculated from the Cockcroft-Gault equation) are based ondifferent parameters and may not yield comparable results.If eCrCl result is absurd, please check patient'sheight/weight. Estimated Glomerular Filt Rate >60 [facility] Comment:Chronic Kidney Disea se: Estimated GFR < 60 mL/min/1.19m6Gfugxv Kidney Disease: Estimated GFR < 15 mL/min/1.73m2 Glucose 101 60 - 115 mg/dL [facility] Calcium 9.7 8.4 - 10.2 mg/dL [facility] Bilirubin, Total 0.2 0.0 - 1.0 mg/dL [facility] Aspartate Amino Transferase 24 5 - 31 U/L [facility] Alanine Aminotransferase 29 0 - 31 U/L [facility] Total Protein 6.9 6.5 - 8.0 g/dL [facility] Albumin Level 4.2 3.5 - 5.0 g/dL [facility] Alkaline Phosphatase 73 39 - 117 U/L [facility] 01/28/2025 10:0 8 PM EDT 01/28/2025 10:14 PM EDT us Generic External Data Provider LAB BLOOD ORDERAB LES Final Result [facility] [address] [place] [phone] * US Pelvis Transvaginal (01/18/2025 1:08 AM EDT) Anatomical Region Laterality Modality Pelvis Ultrasound 01/18/2025 1:08 AM EDT Narrative 01/18/2025 1:09 AM EDT [address] [address] Ultrasound Report Signed Patient: Rafita Kuo MR#: [id number] : 1990 Acct:[id number] Age/Sex: 34 / F ADM Date: 01/17/25 Loc: HO.ED Attending Dr: Ordering Physician: Matheus Galdamez PA-C Date of Service: 01/17/25 Procedure(s): US pelvic and transvaginal Accession Number(s): [id number] cc: Matheus Galdamez PA-C; Demetria Chaparro CLINICAL HISTORY: L Pelvic Pain; Amenorrhea Exam: Ultrasound of the pelvis, transabdominal and transvaginal Comparison: CT of the pelvis from 12/31/2024 Findings: Uterus is anteverted and mildly retroflexed. Portions of the uterus obscured by side lobe artifacts. Nonuniformity of the endometrium is nonspecific with imaged endometrium measuring 1.5 cm maximum thickness. Low echogenicity measures 1.4 cm appears with a in the endometrium. Although nonspecific this may be related to blood products. Partial obscuration of the junctional zones are nonspecific and can be seen with adenomyosis. Right ovary measures 3.5 x 2.9 x 2.2 cm. Left ovary measures 3.6 x 3.4 x 2.1 cm. Multiple follicles noted in both ovaries. Mild free fluid is nonspecific in the imaged pelvis. Small cysts adjacent to the cervix likely due to nabothian cysts. Impression: 1. No ultrasound findings of ovarian torsion. 2. Abnormal appearance of the endometrium is nonspecific including nonuniformity and obscuration of the borders of the endometrium. Short-term follow-up in 6 weeks or 10 weeks could be considered. Blurring of the junctional zone is nonspecific and can be seen with adenomyosis. Other endometrial pathology not excluded by imaging. This document has been electronically signed by: Sabino Maria MD on 01/18/2025 01:08:03 Dictated By: Sabino Maria MD Signed By: <Electronically signed by Sabino Maria MD in OV> 01/18/25107 DD/ 7 TD/TT: 01/18/25107 Neurological Physiotherapist: Procedure Note Donotuseinterpreter, Image - 01/18/[address] [address] Ultrasound Report Signed Patient: Rafita Kuo#: [id number] : 1990Acct:[id number] Age/Sex: 34 / FADM Date: 01/17/25 Loc: HO.ED Attending Dr: Ordering Physician: Matheus Galdamez PA-C Date of Service: 01/17/25 Procedure(s): US pelvic and transvaginal Accession Number(s): [id number] cc: Matheus Galdamez PA-C; Demetria Chaparro CLINICAL HISTORY: L Pelvic Pain; Amenorrhea Exam: Ultrasound of the pelvis, transabdominal and transvaginal Comparison: CT of the pelvis from 12/31/2024 Findings: Uterus is anteverted and mildly retroflexed. Portions of the uterus obscured by side lobe artifacts. Nonuniformity of the endometrium is nonspecific with imaged endometrium measuring 1.5 cm maximum thickness. Low echogenicity measures 1.4 cm appears with a in the endometrium. Although nonspecific this may be related to blood products. Partial obscuration of the junctional zones are nonspecific and can be seen with adenomyosis. Right ovary measures 3.5 x 2.9 x 2.2 cm. Left ovary measures 3.6 x 3.4 x 2.1 cm. Multiple follicles noted in both ovaries. Mild free fluid is nonspecific in the imaged pelvis. Small cysts adjacent to the cervix likely due to nabothian cysts. Impression: 1. No ultrasound findings of ovarian torsion. 2. Abnormal appearance of the endometrium is nonspecific including nonuniformity and obscuration of the borders of the endometrium. Short-term follow-up in 6 weeks or 10 weeks could be considered. Blurring of the junctional zone is nonspecific and can be seen with adenomyosis. Other endometrial pathology not excluded by imaging. This document has been electronically signed by: Sabino Maria MD on 01/18/2025 01:08:03 Dictated By: Sabino Maria MD Signed By: <Electronically signed by Sabino Maria MD in OV> 01/18/25107 DD/ 7 TD/TT: 01/18/25107 Neurological Physiotherapist: [facility] External Provider IMG US PROCEDURES Edited Result - Final * HCG, Qualitative, Urine (01/18/2025 12:23 AM EDT) Urine NEGATIVE NEGATIVE [facility] Comment:This test was develo ped to detect early . Falsenegative results may occur after the 5th - 7th week ofpregnancy when using this test method. If clinicallyindicated, consider a serum hCG. 01/18/2025 12:2 3 AM EDT 01/18/2025 12:27 AM EDT Generic External Data Provider LAB URINE ORDERAB LES Final Result [facility] [address] [place] [phone] * SARS-CoV-2 RNA, Influenza A/B, and RSV RNA, Ql NAAT (01/17/2025 8:44 PM EDT) Only the most recent of2 resultswithin the time period is included. Influenza A PCR NEGATIVE Negative [facility] Influenza B PCR NEGATIVE Negative [facility] Resp Syncy Virus RNA Qual PCR NEGATIVE Negative [facility] SARS COV2 PCR NEGATIVE Negative [facility] Comment:All test results mus t be correlated with clinical findings.Negative results do not preclude SARS-CoV2, influenza Avirus, influenza B virus and/or RSV infectionand should not be used as the sole basis for treatment orother patient management decisions. Negative results must becombined with clinical observations, patient history, andepidemiological information.This test has not been evaluated for monitoring treatment ofinfection.This test has been authorized by the FDA under an EmergencyUse Authorization (EUA) for use by authorized laboratories.Testing performed on the [employer] GeneXpert utilizingreal-time RT-PCR.All SARS CoV2 and positive influenza A/B results arereported to [facility]. 01/17/2025 8:44 PM EDT 01/17/2025 8:54 PM EDT us Generic External Data Provider LAB MICROBIOLOGY - GENERAL ORDERABLES Final Result [facility] [address] [place] [address] [phone] * (ABNORMAL) CBC (01/17/2025 8:44 PM EDT) White Blood Count 7.0 4.8 - 10.8 X10*3/uL [facility] Red Blood Count 4.37 4.20 - 5.50 X10*6/uL [facility] Hemoglobin 11.1(L) 12.0 - 16.0 g/dl [facility] Hematocrit 33.4(L) 37.0 - 47.0 % [facility] Mean Corpuscular Volume 76.4(L) 80.0 - 98.0 fL [facility] Mean Corpuscular Hemoglobin 25.4(L) 27.0 - 33.0 pg [facility] Mean Corpuscular HGB Conc 33.2 31.0 - 35.0 g/dl [facility] Red Cell Distribution Width 16.7(H) 11.0 - 16.0 % [facility] Platelet Count 305 160 - 400 X10*3/uL [facility] Mean Platelet Volume 10.2 9.4 - 12.3 fL [facility] NRBC Pct Auto 0.0 0.0 - 0.2 /100WBC [facility] NRBC Abs Auto 0.000 0.0 - 0.012 X10*3/uL [facility] 01/17/2025 8:44 PM EDT 01/17/2025 8:54 PM EDT us Generic External Data Provider LAB BLOOD ORDERAB LES Final Result Performing Organization Address City/[facility]/ZIP Co de Phone Number [facility] [address] [place] [address] [phone] * (ABNORMAL) Basic Metabolic Panel (01/17/2025 8:44 PM EDT) Sodium 140 135 - 145 mmol/L [facility] Potassium 3.7 3.3 - 5.1 mmol/L [facility] Chloride 108 96 - 108 mmol/L [facility] Carbon Dioxide 23 22 - 29 mmol/L [facility] Anion Gap 13 12 - 20 [facility] Urea Nitrogen (BUN) 8(L) 9 - 16 mg/dL [facility] Creatinine, Serum 0.70 0.5 - 1.4 mg/dL [facility] Creatinine Clr Calc Pharmacy 116.9 [facility] Comment:Provided height and weight: 165.1 cm,81.1 kg.eGFR (calculated from the MDRD study equation) and eCrCl(calculated from the Cockcroft-Gault equation) are based ondifferent parameters and may not yield comparable results.If eCrCl result is absurd, please check patient'sheight/weight. Estimated Glomerular Filt Rate >60 [facility] Comment:Chronic Kidney Disea se: Estimated GFR < 60 mL/min/1.62o4Brgjib Kidney Disease: Estimated GFR < 15 mL/min/1.73m2 Glucose 99 60 - 115 mg/dL [facility] Calcium 9.3 8.4 - 10.2 mg/dL [facility] 01/17/2025 8:44 PM EDT 01/17/2025 8:54 PM EDT us Generic External Data Provider LAB BLOOD ORDERAB LES Final Result Performing Organization Address City/[facility]/ZIP Co de Phone Number [facility] [address] [place] [address] [phone] * CT Abdomen Pelvis w/o Contrast (12/31/2024 1:04 PM EDT) Anatomical Region Laterality Modality Body, Pelvis, Abdomen Computed T omography 12/31/2024 1:04 PM EDT Narrative 12/31/2024 1:36 PM EDT [address] [address] [address] Scan Report Signed Patient: Rafita Kuo MR#: [id number] : 1990 Acct:[id number] Age/Sex: 34 / F ADM Date: 12/31/24 Loc: HO.ED Attending Dr: Ordering Physician: Ap Mcconnell MD Date of Service: 12/31/24 Procedure(s): CT abdomen pelvis wo IV con Accession Number(s): [id number] cc: Demetria Chaparro HAIRSPRING ADJUSTER; Ap Mcconnell MD Report Number: [id number]: Total DLP = 606.00 mGy-cm EXAMINATION: CT ABDOMEN PELVIS WITHOUT IV CONTRAST HISTORY: RLQ, suprapubic tenderness, rule out appendicitis COMPARISON: Comparison is made with the prior examination dated 12/01/2021. TECHNIQUE: CT scan of the abdomen and pelvis was performed without contrast using standard departmental protocol. Coronal and sagittal reformatted images were generated and reviewed. Oral contrast material was not administered at the request of the referring physician. This CT exam was performed with one or more of the following dose reduction techniques: automated exposure control, adjustment of the mA and/or kV according to patient size, use of iterative reconstruction technique. DLP: 606 mGy-cm FINDINGS: LOWER CHEST: The visualized lung bases are clear. There is no pleural effusion. CARDIOVASCULATURE: The heart is normal in size. There is no pericardial effusion. LIVER: The liver is normal in size and contour. The liver demonstrates heterogeneously decreased attenuation consistent with steatosis. There is focal fatty sparing adjacent to the gallbladder GALLBLADDER / BILE DUCTS: The gallbladder is unremarkable. There is no intra or extrahepatic biliary ductal dilatation. SPLEEN: The spleen is normal in size and has an unremarkable unenhanced appearance. PANCREAS: The pancreas has an unremarkable unenhanced appearance. ADRENAL GLANDS: Unremarkable. KIDNEYS/RETROPERITONEUM: No renal calculi are identified. There is no hydronephrosis. LYMPH NODES: No retroperitoneal lymphadenopathy is identified in the abdomen or pelvis. VASCULATURE: The abdominal aorta is normal in caliber. MESENTERY/PERITONEUM: No free fluid. No masses. There is no free intraperitoneal gas. STOMACH: The stomach is unremarkable. SMALL BOWEL: The small bowel is normal in caliber. COLON: There is a large amount of stool throughout the colon. APPENDIX: Normal. URINARY BLADDER/PELVIC ORGANS: The urinary bladder is collapsed, limiting evaluation. The uterus and right ovary are unremarkable. There is a 3.1 cm left ovarian cyst versus follicle. BONES / SOFT TISSUES: No suspicious bony or soft tissue abnormalities. CT/CT abdomen pelvis wo IV con IMPRESSION: 1. A normal appendix is visualized. 2. Large amount of stool throughout the colon. 3. Hepatic steatosis. 4. 3.1 cm left ovarian cyst versus follicle. Electronically signed by: Corbin Murcia MD 12/31/2024 01:33 PM EDT Dictated By: Corbin Murcia MD Signed By: <Electronically signed by Corbin Murcia MD in OV> 12/31/24 1333 DD/ 1304 TD/TT: 12/31/24 1324 Neurological Physiotherapist: Procedure Note Donotuseinterpreter, Image - 12/31/[address] [place] [address] [address] Scan Report Signed Patient: Rafita Kuo#: [id number] : 1990Acct:[id number] Age/Sex: 34 / FADM Date: 12/31/24 Loc: HO.ED Attending Dr: Ordering Physician: Ap Mcconnell MD Date of Service: 12/31/24 Procedure(s): CT abdomen pelvis wo IV con Accession Number(s): [id number] cc: Demetria Chaparro; Ap Mcconnell MD Report Number: [id number]: Total DLP = 606.00 mGy-cm EXAMINATION: CT ABDOMEN PELVIS WITHOUT IV CONTRAST HISTORY: RLQ, suprapubic tenderness, rule out appendicitis COMPARISON: Comparison is made with the prior examination dated 12/01/2021. TECHNIQUE: CT scan of the abdomen and pelvis was performed without contrast using standard departmental protocol. Coronal and sagittal reformatted images were generated and reviewed. Oral contrast material was not administered at the request of the referring physician. This CT exam was performed with one or more of the following dose reduction techniques: automated exposure control, adjustment of the mA and/or kV according to patient size, use of iterative reconstruction technique. DLP: 606 mGy-cm FINDINGS: LOWER CHEST: The visualized lung bases are clear. There is no pleural effusion. CARDIOVASCULATURE: The heart is normal in size. There is no pericardial effusion. LIVER: The liver is normal in size and contour. The liver demonstrates heterogeneously decreased attenuation consistent with steatosis. There is focal fatty sparing adjacent to the gallbladder GALLBLADDER / BILE DUCTS: The gallbladder is unremarkable. There is no intra or extrahepatic biliary ductal dilatation. SPLEEN: The spleen is normal in size and has an unremarkable unenhanced appearance. PANCREAS: The pancreas has an unremarkable unenhanced appearance. ADRENAL GLANDS: Unremarkable. KIDNEYS/RETROPERITONEUM: No renal calculi are identified. There is no hydronephrosis. LYMPH NODES: No retroperitoneal lymphadenopathy is identified in the abdomen or pelvis. VASCULATURE: The abdominal aorta is normal in caliber. MESENTERY/PERITONEUM: No free fluid. No masses. There is no free intraperitoneal gas. STOMACH: The stomach is unremarkable. SMALL BOWEL: The small bowel is normal in caliber. COLON: There is a large amount of stool throughout the colon. APPENDIX: Normal. URINARY BLADDER/PELVIC ORGANS: The urinary bladder is collapsed, limiting evaluation. The uterus and right ovary are unremarkable. There is a 3.1 cm left ovarian cyst versus follicle. BONES / SOFT TISSUES: No suspicious bony or soft tissue abnormalities. CT/CT abdomen pelvis wo IV con IMPRESSION: 1. A normal appendix is visualized. 2. Large amount of stool throughout the colon. 3. Hepatic steatosis. 4. 3.1 cm left ovarian cyst versus follicle. Electronically signed by: Corbin Murcia MD 12/31/2024 01:33 PM EDT RP Dictated By: Corbin Murcia MD Signed By: <Electronically signed by Corbin Murcia MD in OV> 12/31/24 1333 DD/ 1304 TD/TT: 12/31/24 1324 Neurological Physiotherapist: us [facility] External Provider IMG CT PROCEDURES Final Result * XR Chest 2 Views (12/28/2024 11:36 PM EDT) Anatomical Region Laterality Modality Chest Radiographic Cielo ging 12/28/2024 11:3 6 PM EDT Narrative 12/28/2024 11:37 PM EDT [address] [address] XRay Report Signed Patient: Rafita Kuo MR#: [id number] : 1990 Acct:[id number] Age/Sex: 34 / F ADM Date: 12/28/24 Loc: .ED Attending Dr: Ordering Physician: Flako Horne DO Date of Service: 12/28/24 Procedure(s): XR chest 2V Accession Number(s): [id number] cc: Demetria ChaparroP; Flako Horne DO CLINICAL HISTORY: chest pain 2 view chest x-ray Comparison: None provided Findings: Normal size heart. no consolidation, pleural effusion or pneumothorax. No acute fracture. IMPRESSION: 1. No acute findings. This document has been electronically signed by: Emiliana Merrill MD on 12/28/2024 23:36:46 Dictated By: Emiliana Merrill MD Signed By: <Electronically signed by Emiliana Merrill MD in OV> 12/28/247 DD/ 2336 TD/TT: 12/28/242335 Neurological Physiotherapist: Procedure Note Donotuseinterpreter, Image - 12/28/[address] [address] XRay Report Signed Patient: Rafita Kuo#: [id number] : 1990Acct:[id number] Age/Sex: 34 / FADM Date: 12/28/24 Loc: HO.ED Attending Dr: Ordering Physician: Flako Horne DO Date of Service: 12/28/24 Procedure(s): XR chest 2V Accession Number(s): [id number] cc: Demetria Chaparro; Flako Horne DO CLINICAL HISTORY: chest pain 2 view chest x-ray Comparison: None provided Findings: Normal size heart. no consolidation, pleural effusion or pneumothorax. No acute fracture. IMPRESSION: 1. No acute findings. This document has been electronically signed by: Emiliana Merrill MD on 12/28/2024 23:36:46 Dictated By: Emiliana Merrill MD Signed By: <Electronically signed by Emiliana Merrill MD in OV> 12/28/242336 DD/ 35 TD/TT: 12/28/242335 Neurological Physiotherapist: [facility] External Provider IMG XR PROCEDURES Edited Result - Final * High Sensitivity Troponin I (12/28/2024 10:27 PM EDT) [facility] TROPONIN I HIGH SENSITIVITY <2.7 <3.5 - 17.0 ng/L [facility] Comment:The [place] high sens itivity Troponin-I results should beused in conjunction with other diagnostic information suchas ECG, clinical observations and information, and patientsymptoms to aid in the diagnosis of PA. 12/28/2024 10:2 7 PM EDT 12/28/2024 10:29 PM EDT Generic External Data Provider LAB BLOOD ORDERAB LES Final Result [facility] [address] [place] [phone] * Hepatitis C Viral RNA, Quantitative, Real-Time PCR (01/24/2024 11:05 AM EDT) [facility] Hepatitis C Viral Load <15 NOT DETECTED NOT DETECTED IU/mL [facility] HCV Log PCR <1.18 NOT DETECTED NOT DETECTED Log IU/mL [facility] Comment:For additional infor mars, please refer tohttp://education.Melon/faq/SSF76r7(This link is being provided for informational/educational purposes only.)THIS TEST WAS PERFORMED AT:[facility] [place] [id number] WOODS MD Blood 01/24/2024 11:0 5 AM EDT 01/24/2024 2:06 PM EDT Demetria Chaparro HAIRSPRING ADJUSTER LAB BLOOD ORDERABLES Final Res ult [facility] [address] [place] [address] [phone] * HIV-1/2 Antigen and Antibodies, Fourth Generation, with Reflexes (01/24/2024 11:05 AM EDT) Pathologist [facility] HIV AB/AG Nonreactive Nonreactive [facility] Comment:HIV-1 p24 Ag and/or HIV-1/HIV-2 Ab not detected.A test result that is nonreactive does not exclude thepossibility of exposure to or infection with HIV-1 and/orHIV-2. Nonreactive results in this assay for individualswith prior exposure to HIV-1 and/or HIV-2 may be due toantigen and antibody levels that are below the limit ofdetection of this assay.[employer] HIV Ag/Ab Combo assay result andsupplemental assay results should be interpreted inconjunction with the patient's clinical presentation,history and other laboratory results. If the results areinconsistent with clinical evidence, additional testing issuggested to confirm the result. Blood Venous blood specimen / Unknown 01/24/2024 11:05 AM EDT 01/24/2024 2:04 PM EDT us Demetria Chaparro HAIRSPRING ADJUSTER LAB BLOOD ORDERABLES Final Res ult [facility] [address] [place] [address] [phone] * Pap Smear (05/26/2021 12:00 AM EST) Swab Soniya Garcia CNM LAB CYTOLOGY ORDERABLES F inal Result Performing Organization Address City/[facility]/ZIP Co de Phone Number [address], [place] [phone] * THINPREP TIS PAP AND HPV mRNA E6/E7, CT/NG, TRICH (05/22/2021 7:14 PM EST) Chlamydia trachomatis RNA, TMA, Urogenital NOT DETECTED NOT DETECTED [facility] Clinical Information: None given [facility] COMMENT SEE COMMENT [facility] Comment: The analytical performance characteristics of this assay, when used to test SurePath(TM) specimens have been determined by [facility]. The modifications have not been cleared or approved by the FDA. This assay has been validated pursuant to the CLIA regulations and is used for clinical purposes. For additional information, please refer to https://education.Melon/faq/SWM470 (This link is being provided for information/ educational purposes only.) COMMENT [facility] Comment: EXPLANATORY NOTE: The Pap is a screening test for cervical cancer. It is not a diagnostic test and is subject to false negative and false positive results. It is most reliable when a satisfactory sample, regularly obtained, is submitted with relevant clinical findings and history, and when the Pap result is evaluated along with historic and current clinical information. COMMENT: SEE COMMENT [facility] Comment: This case could not be evaluated with computer assisted technology. The slide was manually screened according to routine procedures. Training Personnel Supervisor: SEE COMMENT [facility] Comment: MELANY REARDON(ASCP) CT screening location: [address] [address] [address] HPV nRNA E6/E7 Not Detected Not Detected [facility] Comment: Methodology: Radio Board Operator Announcer-Mediated Amplification This assay detects E6/E7 viral messenger RNA (mRNA) from 14 high-risk HPV types (16,18,31,33,35,39,45,51,52,56,58,59,66,68). The analytical performance characteristics of this assay have been determined by [facility]. The modifications have not been cleared or approved by the FDA. This assay has been validated pursuant to the CLIA regulations and is used for clinical purposes. For additional information, please refer to http://Meet.com.Melon/faq/UHV837f0 (This link if provided for information/ educational purposes only.) Interpretation/Re sult: Unable to provide interpretation due to unsatisfactory specimen adequacy. [facility] LMP: NONE GIVEN [facility] Neisseria gonorrhoeae RNA, TMA, Urogenital NOT DETECTED NOT DETECTED [facility] Prev. BX: NONE GIVEN [facility] Prev. PAP: NONE GIVEN [facility] Review Training Personnel Supervisor: SEE COMMENT [facility] Comment: GSG, CT(ASCP) CT screening location: [place] [address] SOURCE: None given [facility] Statement Of Adequacy: SEE COMMENT [facility] Comment: Specimen processed and examined, but unsatisfactory for evaluation due to an insufficient number of squamous cells. Partially obscuring blood Trichomonas vaginalis, QL, TMA, PAP Vial NOT DETECTED NOT DETECTED [facility] Comment: The analytical performance characteristics of this assay have been determined by [facility]. The modifications have not been cleared or approved by the FDA. This assay has been validated pursuant to the CLIA regulations and is used for clinical purposes. For additional information, please refer to http://education.Melon/ faq/Trichomonastma (This link is being provided for information/ educational purposes only.) NO COLLECTION DATE RECEIVED. WE HAVE USED THE DATE THE SPECIMEN WAS RECEIVED BY THIS LABORATORY THE COLLECTION DATE. IF THIS IS INCORRECT, PLEASE CONTACT CLIENT SERVICES. PHONE NUMBER: 05/22/2021 7:14 PM EST us Tiff Galdamez NP LAB PATHOLOGY ORDERABLES Final Result bulletn. [facility] [address] [place] [address], from Last 3 Months or Most Recently Relevant to Health Maintenance Insurance [facility] C3 DENTAL-[facility] MEDICAID STAND ADULT Care Teams Felt Tipping Machine Tender Relationship Specialty Start Date End Date Demetria Chaparro FNP [address] [place] [address] PCP - General Family Medicine 02/06/22 Britany Childers Section RepairerBooster Station Operator 11/12/24
--- OUTSIDE RECORDS SUMMARY | 2025-02-28 11:48 | XMS_ITS | Encounter Summary ---
Author Organization [employer] Address [address] [facility] 7t [place] [address] Care Team Providers Care Press Feeder Broomcorn Name Role Phone Demetria Chaparro Primary Care Provider [phone] Erin Thibodeaux RN Unavailable [phone] Nessa Gutierrez Unavailable Nessa Gutierrez Unavailable Reason for Visit * Reason Onset Date Comments ER Follow-up 11/06/2023 Encounter Details Date Type Department Care Team ([facility] st Contact Info) Description 11/06/2023 Telephone [facility] [address] [place], [place] [phone] Demetria Chaparro FNP [address] [place], [place] [phone] ER Follow-up Social History Tobacco Use Types Packs/Day Years Used Date Smoking Tobacco: Never Smokeless Tobacco: Never Alcohol Use Standard Drinks/Week Comments Never 0 (1 standard drink = 0.6 oz pur e alcohol) Depression Answer Date Recorded Patient Health Questionnaire-9 Score 0 10/02/2022 Housing Stability Answer Date Recorded What is your housing situation today? I have rey kurt 03/27/[address] you li [...] 11:38 AM EDT Tc to pt using [facility] Director Of Respiratory Therapy [place], [place] [id number], spray ii painter unable to reach pt, left messagefor pt to call back. * Telephone Encounter - Shelby Perez - 11/06/2023 1:06 PM EDT Patient calling to report ED visit on : Date: 10/26/23 Hospital: [facility] Seen for: abdominal pain and migrans Patient [...] documented as of this encounter Care Teams Press Feeder Broomcorn Relationship Specialty Start Date End Date Demetria Chaparro FNP [address] [place] [address] PCP - General Family Medicine 02/06/22 Erin Thibodeaux RN [address] [place] [address] Registered Nurse Family Medicine 10/21/24 11/13/24 Nessa Gutierrez 10/21/24 12/19/24 Nessa Gutierrez 12/29/24 12/30/24 Britany Childers Oil Plant OperatorLearning Support Assistant 11/12/24 documented as of this encounter
--- OUTSIDE RECORDS SUMMARY | 2025-02-28 11:48 | XMS_ITS | Encounter Summary ---
Author Organization [employer] Address [address] [facility] 7t [place] [address] Care Team Providers Care Vice President Consulting Services Name Role Phone Demetria Chaparro Primary Care Provider [phone] Erin Thibodeaux RN Unavailable [phone] Nessa Gutierrez Unavailable Nessa Gutierrez Unavailable Reason for Visit * Reason Onset Date Comments Appointment Request 08/28/2022 Encounter Details Date Type Department Care Team (Late st Contact Info) Description 08/28/2022 Telephone [facility] MEDICINE [address] [place] [address] Demetria Chaparro FNP [address] [place], [place] [phone] Appointment Request Social History Tobacco Use Types [...] - 08/28/2022 4:15 PM EDT Tc from [facility] with N requesting a physical appt for pt. Please contact pt at [phone] documented in this encounter Plan of Treatment Not on file documented as of this encounter Visit Diagnoses Not on filedocumented in this encounter Additional Health Concerns Assessment Noted Time PHQ-9 Depression Total Score: 0 07/04/19 23 11:01 AM EST documented as of this encounter Care Teams Vice President Consulting Services Relationship Specialty Start Date End Date Demetria Chaparro FNP [address] [place] [address] PCP - General Family Medicine 02/06/22 Erin Thibodeaux RN [address] [place] [address] Registered Nurse Family Medicine 10/21/24 11/13/24 Nessa Gutierrez 10/21/24 12/19/24 Nessa Gutierrez 12/29/24 12/30/24 Britany Childers ShipperField Mechanic/Site Lead 11/12/24 documented as of this encounter
--- OUTSIDE RECORDS SUMMARY | 2025-02-28 11:48 | XMS_ITS | Encounter Summary ---
Author Organization [employer] Address [address] [facility] 7t [place] [address] Care Team Providers Care Lead Vulcanizing Operator Name Role Phone Demetria Chaparro ROOFER APPRENTICE Primary Care Provider [phone] Erin Thibodeaux RN Unavailable [phone] Nessa Gutierrez Unavailable Nessa Gutierrez Unavailable Encounter Details Date Type Department Care Team (Late st Contact Info) Description 10/12/2023 Orders Only [facility] MED & PEDS 505 [place] [address] Trey Garcia MD 505 [place] [address] Acute cystitis with hematuria (Primary Dx) Social History Tobacco Use Types Packs/Day Years Used Date Smoking Tobacco: Never Smokeless Tobacco: Never Alcohol Use Standard Drinks/Week Comments Never 0 (1 standard drink = 0.6 oz pur e alcohol) Depression Answer Date Recorded Patient Health Questionnaire-9 Score 0 10/02/2022 Housing Stability Answer Date Recorded What is your housing situation today? I have reycallie hicks 03/27/[address] you [...] as of this encounter Plan of Treatment Not on file documented as of this encounter Visit Diagnoses Diagnosis Acute cystitis with hematuria- Primary documented in this encounter Additional Health Concerns Assessment Noted Time PHQ-9 Depression Total Score: 0 10/03/19 23 9:54 AM EDT documented as of this encounter Care Teams Lead Vulcanizing Operator Relationship Specialty Start Date End Date Demetria Chaparro FNP [address] [place] [address] PCP - General Family Medicine 02/06/22 Erin Thibodeaux RN [address] [place] [address] Registered Nurse Family Medicine 10/21/24 11/13/24 Nessa Gutierrez 10/21/24 12/19/24 Nessa Gutierrez 12/29/24 12/30/24 Britany Childers Executive Sales ManagerC D Stripper 11/12/24 documented as of this encounter
--- OUTSIDE RECORDS SUMMARY | 2025-02-28 11:48 | XMS_ITS | Encounter Summary ---
Author Organization [employer] Address [address] [facility] [address] 7t [place] [address] Care Team Providers Care Tool Liaison Name Role Phone Demetria Chaparro Primary Care Provider [phone] Erin Thibodeaux RN Unavailable [phone] Nessa Gutierrez Unavailable Nessa Gutierrez Unavailable Reason for Visit * Reason Onset Date Comments Nurse Triage 09/05/2023 Encounter Details Date Type Department Care Team (Late st Contact Info) Description 09/05/2023 Telephone [facility] MEDICINE [address] [place] [address] Demetria Chaparro FNP [address] [place], [place] [phone] Nurse Triage Social History Tobacco Use Types [...] PM EDT Triage call attempted x2 with bogart Transitional Nurse [place] [id number] Pt didn't answer. Left voice message to call [facility] [phone] * Telephone Encounter - Shelby Perez - [...] documented as of this encounter Care Teams Tool Liaison Relationship Specialty Start Date End Date Demetria Chaparro FNP [address] [place] [address] PCP - General Family Medicine 02/06/22 Erin Thibodeaux RN [address] [place] [address] [place] [address] Registered Nurse Family Medicine 10/21/24 11/13/24 Nessa Gutierrez 10/21/24 12/19/24 Nessa Gutierrez 12/29/24 12/30/24 Britany Childers Telephone CollectorCore Layer Machine Operator 11/12/24 documented as of this encounter
--- OUTSIDE RECORDS SUMMARY | 2025-02-28 11:48 | XMS_ITS | Encounter Summary ---
Author Organization [employer] Address 75 [facility] 7t [place] [address] Care Team Providers Care Group Tester Name Role Phone Demetria Chaparro SANDRA Primary Care Provider [phone] Encounter Details Date Type Department Care Team ([facility] Contact Info) Description 02/28/2025 Orders Only GENERIC EXTERNAL DATA DEPARTMENT Provider, Generic External Data Social History Tobacco Use Types Packs/Day Years Used Date Smoking Tobacco: Never Passive Smoke Exposure: Never Smokeless Tobacco: Never Alcohol Use Standard [...] on file documented as of this encounter Procedures Procedure Name Priority Date/Time Associated Diagnosis Comments CBC WITH AUTO DIFFERENTIAL Routine 02/28/2025 11:36 AM EDT documented in this encounter Results * (ABNORMAL) CBC auto differential (02/28/2025 11:36 AM EDT) White Blood Count 6.4 4.8 - 10.8 X10*3/uL [facility] Red Blood Count 4.61 4.20 - 5.50 X10*6/uL [facility] Hemoglobin 12.1 12.0 - 16.0 g/dl [facility] Hematocrit 35.8(L) 37.0 - 47.0 % [facility] Mean Corpuscular Volume 77.7(L) 80.0 - 98.0 fL [facility] Mean Corpuscular Hemoglobin 26.2(L) 27.0 - 33.0 pg [facility] Mean Corpuscular HGB Conc 33.8 31.0 - 35.0 g/dl [facility] Red Cell Distribution Width 16.2(H) 11.0 - 16.0 % [facility] Platelet Count 322 160 - 400 X10*3/uL [facility] Mean Platelet Volume 9.5 9.4 - 12.3 fL [facility] Neutrophils Percent Auto 64.6 45 - 73 % [facility] Imm Gran Pct Auto 0.3 0.0 - 0.4 % [facility] Lymphocytes Percent Auto 27.3 20 - 40 % [facility] Monocytes Percent Auto 6.1 2 - 11 % [facility] Eosinophils Percent Auto 1.1 0 - 4 % [facility] Basophils Percent Auto 0.6 0 - 2 % [facility] NRBC Pct Auto 0.0 0.0 - 0.2 /100WBC [facility] Neutrophils Absolute Auto 4.2 2.0 - 8.3 x10*3/uL [facility] Imm Gran Abs Auto 0.02 0.00 - 0.03 X10*3/uL [facility] Lymphocytes Absolute Auto 1.8 1.2 - 4.9 X10*3/uL [facility] Monocytes Absolute Auto 0.4 0.1 - 1.2 X10*3/uL [facility] Eosinophils Absolute Auto 0.1 0.0 - 0.4 X10*3/uL [facility] Basophils Absolute Auto 0.0 0.0 - 0.2 X10*3/uL [facility] NRBC Abs Auto 0.000 0.0 - 0.012 X10*3/uL [facility] 02/28/2025 11:3 6 AM EDT 02/28/2025 11:42 AM EDT us Generic External Data Provider LAB BLOOD ORDERAB LES Final Result [facility] [address] [place] [address] [phone] documented in this encounter Visit Diagnoses Not on filedocumented in this encounter Additional Health Concerns Assessment Noted Time PHQ-9 Depression Total Score: 11 024 11:19 AM EST documented as of this encounter Care Teams Group Tester Relationship Specialty Start Date End Date Demetria Chaparro FNP [address] [place] [address] PCP - General Family Medicine 02/06/22 Britany Childers Rn On SitePer Diem Nurse 11/12/24 documented as of this encounter
--- OUTSIDE RECORDS SUMMARY | 2025-02-28 11:48 | XMS_ITS | Encounter Summary ---
Author Organization [employer] Address [address] [facility] [address] 7[address] [place] [address] Care Team Providers Care Rig Supervisor Name Role Phone Demetria Chaparro Primary Care Provider [phone] Erin Thibodeaux RN Unavailable [phone] Nessa Gutierrez Unavailable Nessa Gutierrez Unavailable Reason for Visit * Reason Onset Date Comments Results 03/28/2024 Encounter Details Date Type Department Care Team (Late st Contact Info) Description 03/28/2024 Telephone [facility] MEDICINE [address] [place] [address] Demetria Chaparro FNP [address] [place], [place] [phone] Results Social History Tobacco Use Types Packs/Day [...] results: Lab Date when done: 03/27/24 Facility: [facility] Contact pt at [phone] documented in this encounter Plan of Treatment Not on file documented as of this encounter Visit Diagnoses Not on filedocumented in this encounter Additional Health Concerns Assessment Noted Time PHQ-9 Depression Total Score: 9 01/21/20 10:18 AM EDT documented as of this encounter Care Teams Rig Supervisor Relationship Specialty Start Date End Date Demetria Chaparro FNP [address] [place] [address] PCP - General Family Medicine 02/06/22 Erin Thibodeaux RN [address] [place] [address] Registered Nurse Family Medicine 10/21/24 11/13/24 Nessa Gutierrez 10/21/24 12/19/24 Nessa Gutierrez 12/29/24 12/30/24 Britany Childers Group Work Program DirectorIndustrial Service Technician 11/12/24 documented as of this encounter
[2025-02-28 12:02] LABS: COVID-19 Test Negative (Negative); IDNOW Serial# 152EDE1D
[2025-02-28 12:03] LABS: IDNOW Serial# 16C4AD1C; Influenza B2 Negative (Negative)
[2025-02-28 12:37] LABS: Alanine Aminotransferase 17 U/L (0-31); Albumin Level 4.3 g/dL (3.5-5.0); Alkaline Phosphatase 56 U/L (39-117); Anion Gap 11 (12-20); Aspartate Amino Transferase 22 U/L (5-31); Blood Urea Nitrogen 6 mg/dL (9-16); Calcium 9.5 mg/dL (8.4-10.2); Carbon Dioxide 19 mmol/L (22-29); Chloride 110 mmol/L (96-108); Creatinine Clr Calc Pharmacy 110.9; Estimated Glomerular Filt Rate > 60; Magnesium 2.0 mg/dL (1.6-2.6); Potassium 3.5 mmol/L (3.3-5.1); Sodium 136 mmol/L (135-145); Total Protein 7.1 g/dL (6.5-8.0)
[2025-02-28 13:26] VITALS: BP 125/80; PULSE 74; RESP 18; TEMP 36.4; O2SAT 100
[2025-02-28 13:51] VITALS: BP 125/80; PULSE 74; RESP 18; TEMP 36.4; O2SAT 100
== END 2025-02-28 13:51 | disposition home or self-care (01) ==
PROVIDERS: Physician Assistant Medical; Emergency Provider Emergency Medicine; PCP Registered Nurse
DX: G43.909 Migraine, unspecified, not intractable, without status migrainosus (principal); H53.149 Visual discomfort, unspecified; I48.0 Paroxysmal atrial fibrillation; Z79.899 Other long term (current) drug therapy; Z03.818 Encounter for observation for suspected exposure to other biological agents ruled out
CPT/HCPCS: 36415; 80048; 80076; 83735; 84702; 85025; 87502; 87635; 96361; 96374; 96375; 99284; J0131; J1200; J2765

== ENCOUNTER 2025-03-23 23:00 | Emergency (ER) | payer MEDICAID, SELFPAY ==
[2025-03-23 23:25] VITALS: BP 123/90; PULSE 74; RESP 20; TEMP 36.8; O2SAT 98; BMI 29.1
[2025-03-24 00:20] LABS: MANUAL DIFF FLAG NO
[2025-03-24 00:22] LABS: Hematocrit 36.2 % (37.0-47.0); Hemoglobin 12.1 g/dl (12.0-16.0); Imm Gran Abs Auto 0.02 X10*3/uL (0.00-0.03); Imm Gran Pct Auto 0.3 % (0.0-0.4); Lymphocytes Absolute Auto 2.7 X10*3/uL (1.2-4.9); Mean Corpuscular HGB Conc 33.4 g/dl (31.0-35.0); Mean Corpuscular Hemoglobin 26.1 pg (27.0-33.0); Mean Corpuscular Volume 78.2 fL (80.0-98.0); NRBC Abs Auto 0.000 X10*3/uL (0.0-0.012); NRBC Pct Auto 0.0 /100WBC (0.0-0.2); Platelet Count 369 X10*3/uL (160-400); Red Blood Count 4.63 X10*6/uL (4.20-5.50); White Blood Count 7.9 X10*3/uL (4.8-10.8)
--- OUTSIDE RECORDS SUMMARY | 2025-03-24 00:23 | XMS_ITS | Encounter Summary ---
Author Organization [employer] Address 75 [facility] 7t [place] [address] Care Team Providers Care Web Operations Specialist Name Role Phone Demetria Chaparro Primary Care Provider [phone] Erin Thibodeaux RN Unavailable [phone] Nessa Gutierrez Unavailable Nessa Gutierrez Unavailable Reason for Visit * Reason Onset Date Comments Appointment Request 08/28/2022 Encounter Details Date Type Department Care Team (Late st Contact Info) Description 08/28/2022 Telephone [facility] MEDICINE [address] [place] [address] Demetria Chaparro FNP [address] [place], [place] [phone] Appointment Request Social History Tobacco Use Types [...] - 08/28/2022 4:15 PM EDT Tc from [facility] with N requesting a physical appt for pt. Please contact pt at [phone] documented in this encounter Plan of Treatment Upcoming Encounters Date Type Department Care Team ([facility] st Contact Info) Description 03/26/2025 11:00 AM EDT Nutrition [facility] DIABETES/NTRN [address] [place] [address] [place] [address] documented as of this encounter Visit Diagnoses Not on filedocumented in this encounter Additional Health Concerns Assessment Noted Time PHQ-9 Depression Total Score: 0 07/04/19 11:01 AM EST documented as of this encounter Care Teams Web Operations Specialist Relationship Specialty Start Date End Date Demetria Chaparro FNP [address] [place] [address] PCP - General Family Medicine 02/06/22 Erin Thibodeaux RN [address] [place] [address] Registered Nurse Family Medicine 10/21/24 11/13/24 Nessa Gutierrez 10/21/24 12/19/24 Nessa Gutierrez 12/29/24 12/30/24 Britany Childers FuelerHand Bender 11/12/24 documented as of this encounter
--- OUTSIDE RECORDS SUMMARY | 2025-03-24 00:23 | XMS_ITS | Encounter Summary ---
Author Organization [employer] Address [address] [facility] [address] 7t [place] [address] Care Team Providers Care Fire And Safety Helper Name Role Phone Demetria Chaparro Primary Care Provider [phone] Erin Thibodeaux RN Unavailable [phone] Nessa Gutierrez Unavailable Nessa Gutierrez Unavailable Reason for Visit * Reason Onset Date Comments Nurse Triage 09/05/2023 Encounter Details Date Type Department Care Team (Late st Contact Info) Description 09/05/2023 Telephone [facility] MEDICINE [address] [place] [address] Demetria Chaparro FNP [address] [place], [place] [phone] Nurse Triage Social History Tobacco Use Types [...] PM EDT Triage call attempted x2 with [place] Account Executive ID [id number] Pt didn't answer. Left voice message to call [facility] [phone] * Telephone Encounter - Shelby Perez - 09/05/2023 4:37 PM EDT Symptom: Vomiting Outcome: Schedule an urgent appointment (within 4 hours) or talk to a nurse or provider soon Reason: Vomited at least once in the past 8 hours The caller accepted this outcome documented in this encounter Plan of Treatment Upcoming Encounters Date Type Department Care Team (Late st Contact Info) Description 03/26/2025 11:00 AM EDT Nutrition [facility] DIABETES/NTRN 505 [place], [place] [phone] Olga Otero [address] [place] [address] documented as of this encounter Visit Diagnoses Not on filedocumented in this encounter Additional Health Concerns Assessment Noted Time PHQ-9 Depression Total Score: 0 10/03/19 23 9:54 AM EDT documented as of this encounter Care Teams Fire And Safety Helper Relationship Specialty Start Date End Date Demetria Chaparro FNP [address] [place] [address] PCP - General Family Medicine 02/06/22 Erin Thibodeaux RN [address] [place] [address] Registered Nurse Family Medicine 10/21/24 11/13/24 Nessa Gutierrez 10/21/24 12/19/24 Nessa Gutierrez 12/29/24 12/30/24 Brtiany Childers Special Forces Communications SergeantCustomer Support Advisor 11/12/24 documented as of this encounter
--- OUTSIDE RECORDS SUMMARY | 2025-03-24 00:23 | XMS_ITS | Encounter Summary ---
Author Organization [employer] Address 75 [facility] 7t [place] [address] Care Team Providers Care Data Warehouse Developer Name Role Phone Demetria Chaparro Primary Care Provider [phone] Reason for Visit * Reason Onset Date Comments Med Refill 03/19/2025 Encounter Details Date Type Department Care Team ([facility] st Contact Info) Description 03/19/2025 Refill [facility] CHC MED & PEDS [address] [place] [address] Demetria Chaparro FNP 505 [place] [address] Migraine without aura and without status migrainosus, not intractable Social History Tobacco Use Types Packs/Day Years [...] Info) Description 03/26/2025 11:00 AM EDT Nutrition [facility] DIABETES/NTRN [address] [place] [address] [place] [address] documented as of this encounter Visit Diagnoses Diagnosis Migraine without aura and without status migrainosus, not intractable documented in this encounter Additional Health Concerns Assessment Noted Time PHQ-9 Depression Total Score: 11 024 11:19 AM EST documented as of this encounter Care Teams Data Warehouse Developer Relationship Specialty Start Date End Date Demetria Chaparro FNP [address] [place] [address] PCP - General Family Medicine 02/06/22 Britany Childers Command And ControlManufacturers Service Representative 11/12/24 documented as of this encounter
--- OUTSIDE RECORDS SUMMARY | 2025-03-24 00:23 | XMS_ITS | Encounter Summary ---
Author Organization [employer] Address [address] [facility] [address] 7[address] [place] [address] Care Team Providers Care Supervisor Salvage Name Role Phone Demetria Chaparro Primary Care Provider [phone] Erin Thibodeaux RN Unavailable [phone] Nessa Gutierrez Unavailable Nessa Gutierrez Unavailable Reason for Visit * Reason Onset Date Comments Results 03/28/2024 Encounter Details Date Type Department Care Team (Late st Contact Info) Description 03/28/2024 Telephone [facility] MEDICINE [address] [place] [address] Demetria Chaparro FNP [address] [place], [place] [phone] Results Social History Tobacco Use Types Packs/Day [...] results: Lab Date when done: 03/27/24 Facility: [facility] Contact pt at [phone] documented in this encounter Plan of Treatment Upcoming Encounters Date Type Department Care Team (Late st Contact Info) Description 03/26/2025 11:00 AM EDT Nutrition [facility] DIABETES/NTRN 505 [place] [address] Olga Otero, RD 230 [place] [address] documented as of this encounter Visit Diagnoses Not on filedocumented in this encounter Additional Health Concerns Assessment Noted Time PHQ-9 Depression Total Score: 9 01/21/20 24 10:18 AM EDT documented as of this encounter Care Teams Supervisor Salvage Relationship Specialty Start Date End Date Demetria Chaparro FNP [address] [place] [address] PCP - General Family Medicine 02/06/22 Erin Thibodeaux RN 505 [place] [address] Registered Nurse Family Medicine 10/21/24 11/13/24 Nessa Gutierrez 10/21/24 12/19/24 Nessa Gutierrez 12/29/24 12/30/24 Britany Childers Hoist OperatorSurvey Instrument Operator 11/12/24 documented as of this encounter
--- OUTSIDE RECORDS SUMMARY | 2025-03-24 00:23 | XMS_ITS | Encounter Summary ---
Author Organization [employer] Address 75 [facility] 7t [place] [address] Care Team Providers Care Cold Mill Inspector Name Role Phone Demetria Chaparro MOCK UP BUILDER Primary Care Provider [phone] Erin Thibodeaux RN Unavailable [phone] Nessa Gutierrez Unavailable Nessa Gutierrez Unavailable Encounter Details Date Type Department Care Team (Late st Contact Info) Description 10/12/2023 Orders Only [facility] CHC MED & PEDS [address] [place] [address] Trey Garcia MD 505 [place] [address] Acute cystitis with hematuria (Primary Dx) Social [...] Upcoming Encounters Date Type Department Care Team ([facility] st Contact Info) Description 03/26/2025 11:00 AM EDT Nutrition [facility] DIABETES/NTRN [address] [place] [address] [place] [address] documented as of this encounter Visit Diagnoses Diagnosis Acute cystitis with hematuria- Primary documented in this encounter Additional Health Concerns Assessment Noted Time PHQ-9 Depression Total Score: 0 10/03/19 23 9:54 AM EDT documented as of this encounter Care Teams Cold Mill Inspector Relationship Specialty Start Date End Date Demetria Chaparro FNP [address] [place] [address] PCP - General Family Medicine 02/06/22 Erin Thibodeaux, REID [address] [place] [address] Registered Nurse Family Medicine 10/21/24 11/13/24 Nessa Gutierrez 10/21/24 12/19/24 Nessa Gutierrez 12/29/24 12/30/24 Britany Childers Petroleum Refining FirerAuto Collision Repair Instructor 11/12/24 documented as of this encounter
--- OUTSIDE RECORDS SUMMARY | 2025-03-24 00:23 | XMS_ITS | Encounter Summary ---
Author Organization [employer] Address [address] [facility] [address] [place] [address] Care Team Providers Care Day Light Relief Operator Name Role Phone Demetria Chaparro Primary Care Provider [phone] Erin Thibodeaux RN Unavailable [phone] Nessa Gutierrez Unavailable Nessa Gutierrez Unavailable Reason for Visit * Reason Onset Date Comments ER Follow-up 11/06/2023 Encounter Details Date Type Department Care Team ([facility] st Contact Info) Description 11/06/2023 Telephone [facility] [address] [place], [place] [phone] Demetria Chaparro FNP [address] [place], [place] [phone] ER Follow-up Social History Tobacco Use Types [...] 11:38 AM EDT Tc to pt using [place] [employer] [place], [place] [id number], tax collection coordinator unable to reach pt, left messagefor pt to call back. * Telephone Encounter - Shelby Perez - 11/06/2023 1:06 PM EDT Patient calling to report ED visit on : Date: 10/26/23 Hospital: [facility] Seen for: abdominal pain and migrans Patient advised will forward to team nurse for follow up Pt would like to get an US done . documented in this encounter Plan of Treatment Upcoming Encounters Date Type Department Care Team (Late st Contact Info) Description 03/26/2025 11:00 AM EDT Nutrition [facility] [address] [place], [place] [phone] Olga Otero, RD [address] [place] [address] documented as of this encounter Visit Diagnoses Not on filedocumented in this encounter Additional Health Concerns Assessment Noted Time PHQ-9 Depression Total Score: 0 10/03/19 23 9:54 AM EDT documented as of this encounter Care Teams Day Light Relief Operator Relationship Specialty Start Date End Date Demetria Chaparro FNP [address] [place] [address] PCP - General Family Medicine 02/06/22 Erin Thibodeaux RN [address] [place] [address] Registered Nurse Family Medicine 10/21/24 11/13/24 Nessa Gutierrez 10/21/24 12/19/24 Nessa Gutierrez 12/29/24 12/30/24 Britany Childers Manager BranchMechanical Maintenance Worker 11/12/24 documented as of this encounter
--- OUTSIDE RECORDS SUMMARY | 2025-03-24 00:23 | XMS_ITS | Encounter Summary ---
Author Organization [employer] Address [address] [facility] [place] [address] Care Team Providers Care Snuff Grinder Name Role Phone Demetria Chaparro Primary Care Provider [phone] Nessa Gutierrez Unavailable Nessa Gutierrez Unavailable Reason for Visit * Reason Onset Date Comments Nurse Triage 12/08/2024 Encounter Details Date Type Department Care Team (Late st Contact Info) Description 12/08/2024 Telephone [facility] [address] [place] [address] Demetria Chaparro FNP [address] [place], [place] [phone] Nurse Triage Social History Tobacco Use Types [...] advised to come to be seen in [facility] today open till 8pm. No apts available in [facility] today or tomorrow. Insurance is verified [...] become worse * Telephone Encounter - Peter Jj - 12/08/2024 2:48 PM EDT Symptoms: Back [...] 03/26/2025 11:00 AM EDT Nutrition [facility] [address] [place] [address] [place] [address] documented as of this encounter Visit Diagnoses Not on filedocumented in this encounter Additional Health Concerns Assessment Noted Time PHQ-9 Depression Total Score: 11 024 11:19 AM EST documented as of this encounter Care Teams Snuff Grinder Relationship Specialty Start Date End Date Demetria Chaparro FNP [address] [place] [address] PCP - General Family Medicine 02/06/22 Nessa Gutierrez 10/21/24 12/19/24 Nessa Gutierrez 12/29/24 12/30/24 Britany Childers HematologistX Ray Consultant 11/12/24 documented as of this encounter
--- OUTSIDE RECORDS SUMMARY | 2025-03-24 00:23 | XMS_ITS | Clinical Summary ---
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 16 g 3 4 Active acetaminophen (Tylenol) 500 MG tabletIndications :Migraine [...] mg by mouth at bedtime. 4 Active busPIRone (Buspar) 15 MG tablet Take [...] TWICE DAILY FOR FOURTEEN DAYS 4 Active cetirizine (ZyrTEC) 10 MG tabletIndications :Seasonal allergic rhinitis due to pollen Take 1 tablet (10 mg) by mouth Once per day. 90 tablet 3 4 Active ferrous sulfate 325 (65 Fe) MG EC tabletIndications :Microcytic anemia Take 1 tablet (325 mg) by mouth 2 times daily. Do not crush, chew, or split. 60 tablet 1 5 Active cholecalciferol VITAMIN D (Vitamin D-3) 50 MCG (2000 UT) capsuleIndication s:Microcytic anemia Take 1 capsule (50 mcg) by mouth Once per day. 90 capsule 3 5 Active hydrocortisone 2.5 % creamIndications: Dermatitis Apply pea sized amount to skin bid for 2 weeks 15 g 5 Active famotidine (Pepcid AC) 10 MG tabletIndications :Gastroesophageal reflux disease, unspecified whether esophagitis present Take 1-2 tablets (10-20 mg) by mouth if needed in the morning and at bedtime for heartburn or indigestion. 120 tablet 1 5 02/03/20 26 Active pyridoxine (Vitamin B-6) 25 MG tabletIndications :Morning sickness Take 1 tablet (25 mg) by mouth if needed in the morning, at noon, in the evening, and at bedtime (morning sickness). 60 tablet 2 5 02/03/20 26 Active Active Problems Problem Noted Date Diagnosed Date Atrial fibrillation 06/27/2024 Overview (06/27/2024): 06/14/24: [facility] ED eval for palpitations, found to [...] Plan (01/21/2024 5:33 PM EDT): Followed by [facility] - Dr. Walker Continues metoprolol 25mg BID and verapamil 40mg nightly Reports well controlled while taking medications Gastritis 10/09/2023 Overview (01/21/2024): Followed by [facility] Continues on lansoprazole 30mg daily Assessment & Plan (01/21/2024 5:25 PM EDT): Plan for EGD for further eval Umbilical hernia 10/09/2023 Overview (01/21/2024): Repaired by [facility] Surgeons - Dr. Woo 07/23/23 Umbilical hernia repair with mesh Migraine without aura 05/31/2023 Overview (04/21/2024): Previously following with [facility] - Dr. Navarro Continues depakote 250mg nightly and sumatriptan PRN Previous med trials: topiramate. Did not experience therapeutic effect Assessment & Plan (04/21/2024 8:53 PM EST): -Referral to [facility] Neuro sent 04/21/24 Assessment & Plan (05/31/2023 9:57 AM EST): -Referral updated 05/31/23 Cobalamin deficiency 07/04/2022 Overview (01/21/2024): Continues on cyanocobalamin 1000 mcg capsule daily Re-check vit D level Gastroesophageal reflux disease without esophagi tis 07/04/2022 Overview (08/14/2024): Continues following with [facility] - ADULT EDUCATION MANAGER Bernardo Cont Lansoprazole Assessment & Plan (08/14/2024 [...] depressive disorder 07/04/2022 Overview (10/15/2022): Following with [facility] - weekly sessions with therapist, monthly with [...] Vit D, Vit B12 - Established with [facility] Heme/Onc Jun 2024 - [...] NIL/HPV neg, GC/Chlamydia/trichomonas neg 05/2021. -Referred to MANAGER CREDIT RISK Jan 2022 Hyperplasia of endometrium determined by biopsy Assessment & Plan (01/21/2024 5:14 PM EDT): EMB 12/19/[address] Kayla Vaughn at [facility] Impression: secretory endometrium Assessment & Plan (10/15/2022 10:40 AM EDT): EMB December 2021 through [facility] Requested notes of latest MANAGER CREDIT RISK visit, referral for follow up if needed Resolved Problems Problem Noted Date Diagnosed Date Resolved Date History of Helicobacter pylori infection 01/21/2024 09/14/2024 Assessment & Plan (01/21/2024 5:16 PM EDT): Tx by [facility] - MONSTER Chang. Unable to tolerate quadruple therapy. Initiated on Levaquin and amoxicillin Jun 2023. 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, AUDITOR Migraine without aura and without status migrainosus, not intractable 03/09/2025 Telephone [facility] MEDICINE [address] [place] [phone] Nutrition referral 02/28/2025 Orders Only GENERIC EXTERNAL DATA DEPARTMENT Provider, Generic External Data 02/02/2025 11:00 AM EDT Office Visit [facility] [address] [place] [address] Demetria Chaparro FNP Less than 8 weeks gestation of (Primary Dx); Dermatitis; Gastroesophageal reflux disease, unspecified whether esophagitis present; Microcytic anemia; Morning sickness 02/02/2025 Travel 01/29/2025 Telephone [facility] MEDICINE [address] [place] [address] Demetria Chaparro FNP ER Follow-up 01/29/2025 Travel 01/28/2025 Orders Only GENERIC EXTERNAL DATA DEPARTMENT Provider, Generic External Data 01/27/2025 Telephone [facility]ED[facility] [address] [place] [address] Demetria Chaparro FNP Nurse Triage 01/20/2025 Telephone [facility] [address] [place] [address] Demetria Chaparro FNP ER Follow-up 01/18/2025 Orders Only GENERIC EXTERNAL DATA DEPARTMENT Provider, Generic External Data 01/17/2025 Orders Only GENERIC EXTERNAL DATA DEPARTMENT Provider, Generic External Data 01/14/2025 Telephone [facility] [address] [place] [address] Demetria Chaparro FNP Nurse Triage 01/07/2025 10:00 AM EDT Office Visit [facility] OPTOMETRY [address] [place] [address] Tien, Bernadette, OD Hyperopia of both eyes (Primary Dx) 01/05/2025 3:00 PM EDT Office Visit [facility] [address] [place] [address] Maggie Cm FNP BMI 29.0-29.9,adult (Primary Dx); Hepatic steatosis; Constipation, unspecified constipation type 01/05/2025 Travel 01/01/2025 Telephone [facility] MEDICINE [address] [place] [address] Demetria Chaparro FNP Nurse Triage 12/31/2024 Orders Only GENERIC EXTERNAL DATA DEPARTMENT Provider, Generic External Data 12/30/2024 Patient Outreach [facility] [address] [place] [address] Demetria Chaparro FNP Care Coordination ([facility] /Communication ) 12/29/2024 Patient Outreach [facility] [address] [place] [address] Demetria Chaparro FNP Care Coordination ([facility] ED/F/U) 12/29/2024 Patient Outreach [facility] [address] [place] [address] Demetria Chaparro FNP Care Coordination ([facility] /Chart Review) 12/29/2024 Patient Outreach [facility] MED[facility] [address] [place] [address] Demetria Chaparro FNP 12/28/2024 Orders Only GENERIC EXTERNAL DATA DEPARTMENT Provider, Generic External Data from Last 3 Months Immunizations Immunization Administration [...] 01/05/2025 2:34 PM EDT Plan of Treatment Upcoming Encounters Date Type Department Care Team (Late st Contact Info) Description 03/26/2025 11:00 AM EDT Nutrition [facility] DI[facility]ETES/NTRN [address] [place], [place] [phone] Olga Otero [address] [place] [address] Health Maintenance Due Date Last Done Comments [...] Procedure Name Priority Date/Time Associated Diagnosis Comments HCG, TOTAL, QN Routine 02/28/2025 11:36 AM EDT MAGNESIUM Routine 02/28/2025 11:36 AM EDT BASIC METABOLIC PANEL Routine 02/28/2025 11:36 AM EDT HEPATIC FUNCTION PANEL Routine 11:36 AM EDT COVID-19 ID NOW (Rank By Search) Routine 02/28/2025 11:36 AM EDT CBC WITH AUTO DIFFERENTIAL Routine 02/28/2025 11:36 AM EDT INFLUENZA A B2 ID NOW (MINER) Routine 02/28/2025 11:36 AM EDT HCG, TOTAL, [...] AUTO DIFFERENTIAL Routine 12/28/2024 10:27 PM EDT HEPATITIS C VIRAL RNA, QUANTITATIVE, REAL-TIME PCR [...] Recently Relevant to Health Maintenance Results * Influenza A B2 ID NOW (SolarEdge) (02/28/2025 11:36 AM EDT) IDNOW SERIAL# [id number] [facility] Influenza A Negative Negative [facility] Influenza B2 Negative Negative [facility] Influenza A B2 Note See Note [facility] Comment:The Miner ID NOW In fluenza A B2 test is used for thequalitative detection of influenza A and B from patientswith signs and symptoms of respiratory infection.Negative results do not preclude influenza virus infectionand should not be used as the sole basis for diagnosis,treatment or other patient management decisions.There is a risk of false negative results due to thepresence of variants in the viral targets of the assay, lowlevels of virus in the specimen and co- infection withRespiratory Syncytial Virus. 02/28/2025 11:3 6 AM EDT 02/28/2025 11:42 AM EDT us Generic External Data Provider LAB MICROBIOLOGY - GENERAL ORDERABLES Final Result [facility] [address] [place] [phone] * COVID-19 ID NOW (MINER) (02/28/2025 11:36 AM EDT) IDNOW SERIAL# [id number] [facility] COVID-19 TEST Negative Negative [facility] COVID-19 NOTE See Note [facility] Comment: Results are for the identification of SARS-CoV2 RNA. TheSARS-CoV2 RNA is generally detectable in respiratory samplesduring the acute phase of infection. Positive results areindicative of the presence of SARS-CoV-2 RNA; clinicalcorrelation with patient history and other diagnosticinformation is necessary to determine patient infectionstatus. Positive results do not rule out bacterial infectionor co- infection with other viruses.Testing facilities within the [facility] are required to report all positive results tothe appropriate public health authorities.Negative results should be treated as presumptive and, ifinconsistent with clinical signs and symptoms or necessaryfor patient management, should be tested with differentauthorized or cleared molecular tests. Negative results donot preclude SARS-CoV2 RNA infection and should not be usedas the sole basis for patient management decisions. Negativeresults should be considered in the context of a patient'srecent exposures, history and the presence of clinical signsand symptoms consistent with COVID-19.This test has been authorized by the FDA under an EmergencyUse Authorization (EUA) for use by authorized laboratories.Testing performed on the Oxtox NOW utilizing NAAT. 02/28/2025 11:3 6 AM EDT 02/28/2025 11:42 AM EDT us Generic External Data Provider LAB MOLECULAR DEISI GNOSTICS ORDERABLES Final Result [facility] [address] [place] [phone] * (ABNORMAL) CBC auto differential (02/28/2025 11:36 AM EDT) Only the most recent of4 resultswithin the time period is included. Pathologist [facility] White Blood Count 6.4 4.8 - 10.8 X10*3/uL [facility] Red Blood Count 4.61 4.20 - 5.50 X10*6/uL [facility] Hemoglobin 12.1 12.0 - 16.0 g/dl [facility] Hematocrit 35.8(L) 37.0 - 47.0 % [facility] Mean Corpuscular Volume 77.7(L) 80.0 - 98.0 fL [facility] Mean Corpuscular Hemoglobin 26.2(L) 27.0 - 33.0 pg [facility] Mean Corpuscular HGB Conc 33.8 31.0 - 35.0 g/dl [facility] Red Cell Distribution Width 16.2(H) 11.0 - 16.0 % [facility] Platelet Count 322 160 - 400 X10*3/uL [facility] Mean Platelet Volume 9.5 9.4 - 12.3 fL [facility] Neutrophils Percent Auto 64.6 45 - 73 % [facility] Imm Gran Pct Auto 0.3 0.0 - 0.4 % [facility] Lymphocytes Percent Auto 27.3 20 - 40 % [facility] Monocytes Percent Auto 6.1 2 - 11 % [facility] Eosinophils Percent Auto 1.1 0 - 4 % [facility] Basophils Percent Auto 0.6 0 - 2 % [facility] NRBC Pct Auto 0.0 0.0 - 0.2 /100WBC [facility] Neutrophils Absolute Auto 4.2 2.0 - 8.3 x10*3/uL [facility] Imm Gran Abs Auto 0.02 0.00 - 0.03 X10*3/uL [facility] Lymphocytes Absolute Auto 1.8 1.2 - 4.9 X10*3/uL [facility] Monocytes Absolute Auto 0.4 0.1 - 1.2 X10*3/uL [facility] Eosinophils Absolute Auto 0.1 0.0 - 0.4 X10*3/uL [facility] Basophils Absolute Auto 0.0 0.0 - 0.2 X10*3/uL [facility] NRBC Abs Auto 0.000 0.0 - 0.012 X10*3/uL [facility] 02/28/2025 11:3 6 AM EDT 02/28/2025 11:42 AM EDT us Generic External Data Provider LAB BLOOD ORDERAB LES Final Result Performing Organization Address City/[facility]/ZIP Co de Phone Number [facility] [address] [place] [phone] * hCG, Total, Quantitative (02/28/2025 11:36 AM EDT) Only the most recent of5 resultswithin the time period is included. HCG Quantitative 121,203 mIU/mL [facility] Comment:Verified by dilution Weeks post LMP Approximate hCG(Last Menstrual Period) Range (mIU/ml)3 - 4 weeks 9 - 1304 - 5 weeks 75 - 2,6005 - 6 weeks 850 - 20,8006 - 7 weeks 4000 - 100,2007 - 12 weeks 11,500 - 289,26207 - 16 weeks 18,300 - 137,03001 - 29 weeks (2nd trimester) 1,400 - 53,78031 - 41 weeks (3rd trimester) 940 - 60,000The Miner B-hCG assay is used for the early detection ofpregnancy; it cannot be used to diagnose any conditionunrelated to . If a B-hCG level is not supportedby the clinical evidence, results should be confirmed by analternative method (qualitative urine hCG, for example). 02/28/2025 11:3 6 AM EDT 02/28/2025 11:42 AM EDT us Generic External Data Provider LAB BLOOD ORDERAB LES Final Result [facility] [address] [place] [address] [phone] * Magnesium (02/28/2025 11:36 AM EDT) Magnesium 2.0 1.6 - 2.6 mg/dL [facility] 02/28/2025 11:3 6 AM EDT 02/28/2025 11:42 AM EDT Generic External Data Provider LAB BLOOD ORDERAB LES Final Result Performing Organization Address [facility]/ZIP Co de Phone Number [facility] [address] [place] [phone] * Hepatic Function Panel (02/28/2025 11:36 AM EDT) [facility] Bilirubin, Total 0.4 0.0 - 1.0 mg/dL [facility] Bilirubin, Direct 0.2 0.0 - 0.5 mg/dL [facility] Aspartate Amino Transferase 22 5 - 31 U/L [facility] Alanine Aminotransferase 17 0 - 31 U/L [facility] Total Protein 7.1 6.5 - 8.0 g/dL [facility] Albumin Level 4.3 3.5 - 5.0 g/dL [facility] Alkaline Phosphatase 56 39 - 117 U/L [facility] 02/28/2025 11:3 6 AM EDT 02/28/2025 11:42 AM EDT Generic External Data Provider LAB BLOOD ORDERAB LES Final Result Performing Organization Address [facility] de Phone Number [facility] [address] [place] [phone] * (ABNORMAL) Basic Metabolic Panel (02/28/2025 11:36 AM EDT) Only the most recent of2 resultswithin the time period is included. Pathologist [facility] Sodium 136 135 - 145 mmol/L [facility] Potassium 3.5 3.3 - 5.1 mmol/L [facility] Chloride 110(H) 96 - 108 mmol/L [facility] Carbon Dioxide 19(L) 22 - 29 mmol/L [facility] Anion Gap 11(L) 12 - 20 [facility] Urea Nitrogen (BUN) 6(L) 9 - 16 mg/dL [facility] Creatinine, Serum 0.69 0.5 - 1.4 mg/dL [facility] Creatinine Clr Calc Pharmacy 110.9 [facility] Comment:Provided height and weight: 160.02 cm,78.8 kg.eGFR (calculated from the MDRD study equation) and eCrCl(calculated from the Cockcroft-Gault equation) are based ondifferent parameters and may not yield comparable results.If eCrCl result is absurd, please check patient'sheight/weight. Estimated Glomerular Filt Rate >60 [facility] Comment:Chronic Kidney Disea se: Estimated GFR < 60 mL/min/1.27w0Iixlyk Kidney Disease: Estimated GFR < 15 mL/min/1.73m2 Glucose 126(H) 60 - 115 mg/dL [facility] Calcium 9.5 8.4 - 10.2 mg/dL [facility] 02/28/2025 11:3 6 AM EDT 02/28/2025 11:42 AM EDT us Generic External Data Provider LAB BLOOD ORDERAB LES Final Result Performing Organization Address City/State/[facility] Co de Phone Number [facility] [address] [place] [phone] * US OB Pelvis with Transvaginal (01/29/2025 3:53 AM EDT) Anatomical Region Laterality Modality Pelvis Ultrasound 01/29/2025 3:53 AM EDT Narrative 01/29/2025 3:55 AM EDT [address] [address] Ultrasound Report Signed Patient: Rafita Kuo MR#: [id number] : 1990 Acct:[id number] Age/Sex: 34 / F ADM Date: 01/28/25 Loc: HO.ED Attending Dr: Ordering Physician: Bianka Sheikh MD Date of Service: 01/29/25 Procedure(s): US OB pelvic and transvaginal Accession Number(s): [id number] cc: Bianka Sheikh MD; Demetria Chaparro CLINICAL [...] signed by Leighton Son MD in OV> 01/29/25 0354 DD/ 035 TD/TT: 01/29/25352 Subeditor: Procedure Note Donotuseinterpreter, Image - 01/29/2025 [place] [address] Ultrasound Report Signed Patient: Rafita Kuo#: [id number] : 1990Acct:[id number] Age/Sex: 34 / FADM Date: 01/28/25 Loc: HO.ED Attending Dr: Ordering Physician: Bianka Sheikh MD Date of Service: 01/29/25 Procedure(s): US OB pelvic and transvaginal Accession Number(s): [id number] cc: Bianka Sheikh MD; Demetria Chaparro CLINICAL [...] in OV> 01/29/254 DD/ 2 TD/TT: 01/29/25352 Subeditor: [facility] External Provider IMG US PROCEDURES Final Result * C.TRACHOMATIS/N. GONORRHOEAE DNA PROBE (01/28/2025 11:57 PM EDT) CTNG Ref Lab [facility] Comment:TEST NOT PERFORMEDSp ecimen transport devicecontained cleaning swab insteadof the collection swab.THIS TEST WAS PERFORMED AT:[facility] [address] [phone] WOODS MD NG Ref Lab [facility] CTNG Ref Note [facility] 01/28/2025 11:5 7 PM EDT 01/29/2025 8:31 AM EDT Narrative [facility] - 02/12/2025 12:03 PM EDT SPURCE=VAG/CERV Generic External Data Provider LAB MICROBIOLOGY - GENERAL ORDERABLES Final Result [facility] [address] [place] [phone] * Wet prep, genital (01/28/2025 11:57 PM EDT) Vaginal Fluid Vaginal structure / Unknown 01/28/2025 11:57 PM EDT 01/29/2025 Comment:Vaginal Narrative [facility] - 01/29/2025 12:44 AM EDT Trichomonas Prep Direct Microscopic Exam Trichomonas Prep No trichomonads or yeast seen Specimen Source: Vaginal us Generic External Data Provider LAB MICROBIOLOGY - GENERAL ORDERABLES Final Result Performing Organization Address City/[facility]/ZIP Co de Phone Number [facility] [address] [place] [phone] * (ABNORMAL) Urinalysis, Complete, with Reflex to Culture (01/28/2025 10:12 PM EDT) Only the most recent of2 resultswithin the time period is included. Color Urine Yellow [facility] Appearance Urine Clear [facility] PH >=9.0 5.0 - 9.0 [facility] Glucose Urine UA Negative Negative mg/dL [facility] Urine Blood Negative Negative [facility] Specific [place] - Urine 1.010 1.005 - 1.025 [facility] Urine Protein Negative Neg-Trace mg/dL [facility] Urine Ketones Negative Negative mg/dL [facility] Nitrite Urine Negative Negative [facility] Leukocyte Esterase Urine Trace(A) Negative [facility] RBC Urine 0-2 0 - 2 /HPF [facility] Urine WBC 0-5 0 - 5 /HPF [facility] Urine Squamous Epithelial Cell 0-2 0 - 2 /HPF [facility] Urine Bacteria None Seen None Seen [facility] Hyaline Casts, Urine 0-2 0 - 2 /LPF [facility] 01/28/2025 10:1 2 PM EDT 01/28/2025 10:14 PM EDT Narrative [facility] - 01/28/2025 10:24 PM EDT [id number], Clean Catch Generic External Data Provider LAB URINE ORDERAB LES Final Result Performing Organization Address [facility]/ZIP Co de Phone Number [facility] [address] [place] [phone] * (ABNORMAL) Comprehensive Metabolic Panel (01/28/2025 10:08 PM EDT) Only the most recent of3 resultswithin the time period is included. Sodium 142 135 - 145 mmol/L [facility] Potassium 3.8 3.3 - 5.1 mmol/L [facility] Chloride 109(H) 96 - 108 mmol/L [facility] Carbon Dioxide 24 22 - 29 mmol/L [facility] Anion Gap 13 12 - 20 [facility] Urea Nitrogen (BUN) 7(L) 9 - 16 mg/dL [facility] Creatinine, Serum 0.74 0.5 - 1.4 mg/dL [facility] Creatinine Clr Calc Pharmacy 105.4 [facility] Comment:Provided height and weight: 160.02 cm,80.286 kg.eGFR (calculated from the MDRD study equation) and eCrCl(calculated from the Cockcroft-Gault equation) are based ondifferent parameters and may not yield comparable results.If eCrCl result is absurd, please check patient'sheight/weight. Estimated Glomerular Filt Rate >60 [facility] Comment:Chronic Kidney Disea se: Estimated GFR < 60 mL/min/1.55a1Yzluqn Kidney Disease: Estimated GFR < 15 mL/min/1.73m2 Glucose 101 60 - 115 mg/dL [facility] Calcium 9.7 8.4 - 10.2 mg/dL [facility] Bilirubin, Total 0.2 0.0 - 1.0 mg/dL [facility] Aspartate Amino Transferase 24 5 - 31 U/L [facility] Alanine Aminotransferase 29 0 - 31 U/L [facility] Total Protein 6.9 6.5 - 8.0 g/dL [facility] Albumin Level 4.2 3.5 - 5.0 g/dL [facility] Alkaline Phosphatase 73 39 - 117 U/L [facility] 01/28/2025 10:0 8 PM EDT 01/28/2025 10:14 PM EDT us Generic External Data Provider LAB BLOOD ORDERAB LES Final Result [facility] [address] [place] [phone] * US Pelvis Transvaginal (01/18/2025 1:08 AM EDT) Anatomical Region Laterality Modality Pelvis Ultrasound 01/18/2025 1:08 AM EDT Narrative 01/18/2025 1:09 AM EDT [address] [address] Ultrasound Report Signed Patient: Rafita Kuo MR#: [id number] : 1990 Acct:[id number] Age/Sex: 34 / F ADM Date: 01/17/25 Loc: HO.ED Attending Dr: Ordering Physician: Matheus Galdamez PA-C Date of Service: 01/17/25 Procedure(s): US pelvic and transvaginal Accession Number(s): [id number] cc: Matheus Galdamez PA-C; Demetria Chaparro CLINICAL [...] in OV> 01/18/25107 DD/ 7 TD/TT: 01/18/25107 Subeditor: Procedure Note Donotuseinterpreter, Image - 01/18/[address] [address] Ultrasound Report Signed Patient: Vargas Kuo#: [id number] : 1990Acct:[id number] Age/Sex: 34 / FADM Date: 01/17/25 Loc: HO.ED Attending Dr: Ordering Physician: Matheus Galdamez PA-C Date of Service: 01/17/25 Procedure(s): US pelvic and transvaginal Accession Number(s): [id number] cc: Matheus Galdamez PA-C; Demetria Chaparro CLINICAL [...] in OV> 01/18/25107 DD/ 7 TD/TT: 01/18/25107 Subeditor: [facility] External Provider IMG US PROCEDURES Edited Result - Final * HCG, Qualitative, Urine (01/18/2025 12:23 AM EDT) Urine NEGATIVE NEGATIVE [facility] Comment:This test was develo ped to detect early . Falsenegative results may occur after the 5th - 7th week ofpregnancy when using this test method. If clinicallyindicated, consider a serum hCG. 01/18/2025 12:2 3 AM EDT 01/18/2025 12:27 AM EDT Generic External Data Provider LAB URINE ORDERAB LES Final Result [facility] [address] [place] [phone] * SARS-CoV-2 RNA, Influenza A/B, and RSV RNA, Ql NAAT (01/17/2025 8:44 PM EDT) Only the most recent of2 resultswithin the time period is included. Influenza A PCR NEGATIVE Negative [facility] Influenza B PCR NEGATIVE Negative [facility] Resp Syncy Virus RNA Qual PCR NEGATIVE Negative [facility] SARS COV2 PCR NEGATIVE Negative [facility] Comment:All test results mus t be [...] use by authorized laboratories.Testing performed on the [employer] GeneXpert utilizingreal-time RT-PCR.All SARS CoV2 and positive influenza A/B results arereported to [facility]. 01/17/2025 8:44 PM EDT 01/17/2025 8:54 PM EDT us Generic External Data Provider LAB MICROBIOLOGY - GENERAL ORDERABLES Final Result [facility] [address] [place] [phone] * (ABNORMAL) CBC (01/17/2025 8:44 PM EDT) White Blood Count 7.0 4.8 - 10.8 X10*3/uL [facility] Red Blood Count 4.37 4.20 - 5.50 X10*6/uL [facility] Hemoglobin 11.1(L) 12.0 - 16.0 g/dl [facility] Hematocrit 33.4(L) 37.0 - 47.0 % [facility] Mean Corpuscular Volume 76.4(L) 80.0 - 98.0 fL [facility] Mean Corpuscular Hemoglobin 25.4(L) 27.0 - 33.0 pg [facility] Mean Corpuscular HGB Conc 33.2 31.0 - 35.0 g/dl [facility] Red Cell Distribution Width 16.7(H) 11.0 - 16.0 % [facility] Platelet Count 305 160 - 400 X10*3/uL [facility] Mean Platelet Volume 10.2 9.4 - 12.3 fL [facility] NRBC Pct Auto 0.0 0.0 - 0.2 /100WBC [facility] NRBC Abs Auto 0.000 0.0 - 0.012 X10*3/uL [facility] 01/17/2025 8:44 PM EDT 01/17/2025 8:54 PM EDT us Generic External Data Provider LAB BLOOD ORDERAB LES Final Result Performing Organization Address City/State/[facility] Co de Phone Number [facility] [address] [place] [phone] * CT Abdomen Pelvis w/o Contrast (12/31/2024 1:04 PM EDT) Anatomical Region Laterality Modality Body, Pelvis, Abdomen Computed T omography 12/31/2024 1:04 PM EDT Narrative 12/31/2024 1:36 PM EDT [address] [address] [address] Scan Report Signed Patient: Rafita Kuo MR#: [id number] : 1990 Acct:[id number] Age/Sex: 34 / F ADM Date: 12/31/24 Loc: HO.ED Attending Dr: Ordering Physician: Ap Mcconnell MD Date of Service: 12/31/24 Procedure(s): CT abdomen pelvis wo IV con Accession Number(s): [id number] cc: Demetria ChaparroP; Ap Mcconnell MD Report Number: [id number]: Total DLP = 606.00 mGy-cm EXAMINATION: CT [...] 12/31/24 1333 DD/ 1304 TD/TT: 12/31/24 1324 Subeditor: Procedure Note Donotuseinterpreter, Image - 12/31/[address] [place] [address] [address] Scan Report Signed Patient: Rafita Kuo#: [id number] : 1990Acct:[id number] Age/Sex: 34 / FADM Date: 12/31/24 Loc: HO.ED Attending Dr: Ordering Physician: Ap Mcconnell MD Date of Service: 12/31/24 Procedure(s): CT abdomen pelvis wo IV con Accession Number(s): [id number] cc: Demetria Chaparro AUDITOR; Ap Mcconnell MD Report Number: [id number]: Total DLP = 606.00 mGy-cm EXAMINATION: CT [...] 12/31/24 1333 DD/ 1304 TD/TT: 12/31/24 1324 Subeditor: [facility] External Provider IMG CT PROCEDURES Final Result * XR Chest 2 Views (12/28/2024 11:36 PM EDT) Anatomical Region Laterality Modality Chest Radiographic Cielo ging 12/28/2024 11:3 6 PM EDT Narrative 12/28/2024 11:37 PM EDT [place] [address] XRay Report Signed Patient: Rafita Kuo MR#: [id number] : 1990 Acct:[id number] Age/Sex: 34 / F ADM Date: 12/28/24 Loc: HO.ED Attending Dr: Ordering Physician: Flako Horne DO Date of Service: 12/28/24 Procedure(s): XR chest 2V Accession Number(s): [id number] cc: Demetria Chaparro; Flako Horne DO CLINICAL [...] in OV> 12/28/242336 DD/ 35 TD/TT: 12/28/242335 Subeditor: Procedure Note Kaylen, Image - 12/28/[address] [address] XRay Report Signed Patient: Rafita KuoMR#: [id number] : 1990Acct:[id number] Age/Sex: 34 / FADM Date: 12/28/24 Loc: .ED Attending Dr: Ordering Physician: Flako Horne DO Date of Service: 12/28/24 Procedure(s): XR chest 2V Accession Number(s): [id number] cc: Demetria Chaparro; Flako Horne DO CLINICAL [...] in OV> 12/28/242336 DD/ 35 TD/TT: 12/28/242335 Subeditor: [facility] External Provider IMG XR PROCEDURES Edited Result - Final * High Sensitivity Troponin I (12/28/2024 10:27 PM EDT) TROPONIN I HIGH SENSITIVITY <2.7 <3.5 - 17.0 ng/L [facility] Comment:The Miner high sens itivity Troponin-I results should beused in conjunction with other diagnostic information suchas ECG, clinical observations and information, and patientsymptoms to aid in the diagnosis of NC. 12/28/2024 10:2 7 PM EDT 12/28/2024 10:29 PM EDT us Generic External Data Provider LAB BLOOD ORDERAB LES Final Result Performing Organization Address [facility]/ZIP Co de Phone Number [facility] [address] [place] [phone] * Hepatitis C Viral RNA, Quantitative, Real-Time PCR (01/24/2024 11:05 AM EDT) [facility] Hepatitis C Viral Load <15 NOT DETECTED NOT DETECTED IU/mL [facility] HCV Log PCR <1.18 NOT DETECTED NOT DETECTED Log IU/mL [facility] Comment:For additional infor matkeyana, please refer tohttp://education.Frugalo/faq/SCV84v4(This link is being provided for informational/educational purposes only.)THIS TEST WAS PERFORMED AT:[facility] [place] [phone] WOODS MD Blood 01/24/2024 11:0 5 AM EDT 01/24/2024 2:06 PM EDT Demetria Chaparro AUDITOR LAB BLOOD ORDERABLES Final Res ult Performing Organization Address [facility] Co de Phone Number [facility] [address] [place] [phone] * HIV-1/2 Antigen and Antibodies, Fourth Generation, with Reflexes (01/24/2024 11:05 AM EDT) [facility] HIV AB/AG Nonreactive Nonreactive [facility] Comment:HIV-1 p24 Ag and/or HIV-1/HIV-2 Ab not detected.A test result that is nonreactive does not exclude thepossibility of exposure to or infection with HIV-1 and/orHIV-2. Nonreactive results in this assay for individualswith prior exposure to HIV-1 and/or HIV-2 may be due toantigen and antibody levels that are below the limit ofdetection of this assay.The [employer] HIV Ag/Ab Combo assay result andsupplemental assay results should be interpreted inconjunction with the patient's clinical presentation,history and other laboratory results. If the results areinconsistent with clinical evidence, additional testing issuggested to confirm the result. Blood Venous blood specimen / Unknown 01/24/2024 11:05 AM EDT 01/24/2024 2:04 PM EDT Demetria Chaparro AUDITOR LAB BLOOD ORDERABLES Final Res ult [facility] [address] [place] [phone] * Pap Smear (05/26/2021 12:00 AM EST) Swab Soniya Garcia CNM LAB CYTOLOGY ORDERABLES F inal Result Performing Organization Address City/[facility] Co de Phone Number [address], [place] [address] * THINPREP TIS PAP AND HPV mRNA E6/E7, CT/NG, TRICH (05/22/2021 7:14 PM EST) Chlamydia trachomatis RNA, TMA, Urogenital NOT DETECTED NOT DETECTED [facility] Clinical Information: None given [facility] COMMENT SEE COMMENT [facility] Comment: The analytical performance characteristics of this assay, when used to test SurePath(TM) specimens have been determined by [employer]. The modifications have not been cleared or approved by the FDA. This assay has been validated pursuant to the CLIA regulations and is used for clinical purposes. For additional information, please refer to https://education.[employer]/faq/MQX373 (This link is being provided for information/ [...] was manually screened according to routine procedures. Statue Carver: SEE COMMENT [facility] Comment: ALEXYS CT(ASCP) CT screening location: [place] [address] HPV nRNA E6/E7 Not Detected Not Detected [facility] Comment: Methodology: Product Development Ecologist-Mediated Amplification This assay detects E6/E7 viral messenger RNA (mRNA) from 14 high-risk HPV types (16,18,31,33,35,39,45,51,52,56,58,59,66,68). The analytical performance characteristics of this assay have been determined by [employer]. The modifications have not been cleared or approved by the FDA. This assay has been validated pursuant to the CLIA regulations and is used for clinical purposes. For additional information, please refer to http://[employer].Frugalo/faq/TBZ626b3 (This link if provided for information/ educational purposes only.) Interpretation/Re sult: Unable to provide interpretation due to unsatisfactory specimen adequacy. [facility] LMP: NONE GIVEN [facility] Neisseria gonorrhoeae RNA, TMA, Urogenital NOT DETECTED NOT DETECTED [facility] Prev. BX: NONE GIVEN [facility] Prev. PAP: NONE GIVEN [facility] Review Statue Carver: SEE COMMENT [facility] Comment: GSG, CT(ASCP) CT screening location: [place] [address] SOURCE: None given [facility] Statement Of Adequacy: SEE COMMENT [facility] Comment: Specimen processed and examined, but unsatisfactory for evaluation due to an insufficient number of squamous cells. Partially obscuring blood Trichomonas vaginalis, QL, TMA, PAP Vial NOT DETECTED NOT DETECTED [facility] Comment: The analytical performance characteristics of this assay have been determined by [employer]. The modifications have not been cleared or approved by the FDA. This assay has been validated pursuant to the CLIA regulations and is used for clinical purposes. For additional information, please refer to http://[employer]rugalo/ faq/Trichomonastma (This link is being provided for information/ educational purposes only.) NO COLLECTION DATE RECEIVED. WE HAVE USED THE DATE THE SPECIMEN WAS RECEIVED BY THIS LABORATORY THE COLLECTION DATE. IF THIS IS INCORRECT, PLEASE CONTACT CLIENT SERVICES. PHONE NUMBER: 05/22/2021 7:14 PM EST us Tiff Galdamez NP LAB PATHOLOGY ORDERABLES Final Result [facility] [address] from Last 3 Months or Most Recently Relevant to Health Maintenance Insurance [facility] C3 DENTAL-[facility] MEDICAID STAND ADULT Care Teams Set Off Press Operator Relationship Specialty Start Date End Date Demetria Chaparro FNP [address] [place] [phone] PCP - General Family Medicine 02/06/22 Britany Childers Head Knitting Machine FixerTest Engineering Intern 11/12/24
--- OUTSIDE RECORDS SUMMARY | 2025-03-24 00:23 | XMS_ITS | Clinical Summary ---
Author Organization [facility] Address [address] [place] [phone] Phone Care Team Providers Care Insurance Claims Adjuster Name Role Phone Physician, No Pcp Primary [...] Years) (1 of 2 - PCV) 02/19/2007 HPV Vaccines (1 - 3-dose SCD M series) 02/19/2015 Hepatitis C Screening 05/14/2022 Social Influencers of Health Screening 05/14/2022 Cervical Cancer Screening: P ap Smear 05/26/2024 05/26/2021, 12/05/2018 Depression Screening 06/11/2024 COVID-19 Vaccine ( - 2023-2 5 season) 2025 Influenza Vaccine (#1) 2025 , 04/08/2019 Cholesterol Screening (Lipid Panel) 01/23/2029 01/24/2024 DTaP,Tdap,and Td Vaccines (2 - Td or Tdap) 03/20/2029 03/20/2019 RSV Immunization Adult Patients (1 - 1-dose 75+ series) 02/19/2063 HIV Screening Completed 01/24/2024, 11/29/2023 HIB Vaccines [...] RESULTING AGENCY - 12/13/2018 2:35 PM EDT [id number] THINPREP PAP, IMAGED: NEGATIVE FOR SQUAMOUS INTRAEPITHELIAL [...] Z12.4, Z34.81, , LMP 09/11/2018 No Arias [facility] CYTOLOGY ORDERABLES Final Result HISTORICAL TESTING LAB RESULTING AGENCY from Last 3 Months or Most Recently Relevant to Health Maintenance Insurance MEDICAID - [place] Care Teams Insurance Claims Adjuster Relationship Specialty Start Date End Date Physician, No Pcp PCP - General 04/18/24
--- OUTSIDE RECORDS SUMMARY | 2025-03-24 00:23 | XMS_ITS | Clinical Summary ---
Demographics Address [address] [place] [address] Home Phone Preferred Language Maldivian Marital Status Sikh Affiliation Unknown Race Unknown Ethnic Group or Author Organization [employer] [facility] Address [address] [place] [address] Care Team Providers Care Office Technologist Name Role Phone Unavailable Primary Care Provider [...] Self [address] [place] [address]
[2025-03-24 00:41] LABS: COVID-19 Test Negative (Negative); IDNOW Serial# 08D9AD1C
[2025-03-24 00:42] LABS: Alanine Aminotransferase 10 U/L (0-31); Albumin Level 4.1 g/dL (3.5-5.0); Alkaline Phosphatase 44 U/L (39-117); Anion Gap 11 (12-20); Aspartate Amino Transferase 18 U/L (5-31); Blood Urea Nitrogen 4 mg/dL (9-16); Calcium 9.9 mg/dL (8.4-10.2); Carbon Dioxide 18 mmol/L (22-29); Chloride 111 mmol/L (96-108); Creatinine Clr Calc Pharmacy 130.6; Estimated Glomerular Filt Rate > 60; Magnesium 1.8 mg/dL (1.6-2.6); Potassium 3.4 mmol/L (3.3-5.1); Sodium 137 mmol/L (135-145); Total Protein 6.8 g/dL (6.5-8.0)
[2025-03-24 01:01] LABS: IDNOW Serial# 6674DD1D; Influenza B2 Negative (Negative)
== END 2025-03-24 01:17 | disposition left against medical advice (07) ==
PROVIDERS: Emergency Provider Emergency Medicine; PCP Physician Assistant
DX: R11.10 Vomiting, unspecified (principal); Z53.21 Procedure and treatment not carried out due to patient leaving prior to being seen by health care provider
CPT/HCPCS: 80053; 83735; 84702; 85025; 87502; 87635; 99281

== ENCOUNTER 2025-04-08 11:21 | Outpatient (AMB) | payer MEDICAID, SELFPAY ==
--- NOTE | 2025-04-08 11:23 | A.OFFVIS_ITS ---
Vital Signs 04/08/25 11:28 Height 5 ft 3 in Weight 168 lb BMI 29.8 BP 122/76 Blood Pressure Location Rt brachial Position Sitting Pulse 70 Pulse Source Pulse Oximeter Pulse Oximetry (%) 100 Oxygen Delivery Method Room Air Comment Currently 14 weeks . Intake Visit Reasons: Pt/Prov req visit. Severe N+V Intake Note: ESTABLISHED PATIENT for mgmt of chronic abd pain + GERD mgmt. FUV s/p HP tx. CC; C.O. severe N+V, lack of appetite, exacerbated GERD. Pt comments that she only was able to take half of the abx tx. Pt also reports she is currently 14 weeks and is unable to take her normal medications. Has been taking pepcid 20 mg and zofran 4 mg PRN w/o much relief. Bias Cutting Machine Operator Required: No Accompanied by: Self / Same As Patient Allergies ibuprofen Allergy (Mild, Verified 03/23/25 23:28) Gastrointestinal Upset Iodinated Contrast Media Allergy (Verified 03/23/25 23:28) Swelling shellfish derived Allergy (Verified 03/23/25 23:28) Unknown Medication List - Last Reconciled 04/08/25 by SANDRA Fitzgerald- acetaminophen (Tylenol Extra Strength) 1,000 mg (2 x 500 mg) PO Q6H PRN albuterol sulfate 90 mcg/actuation (ProAir HFA) 1 puff PO Q4-6H PRN cyanocobalamin (vitamin B-12) 1 tab PO DAILY doxylamine succinate (Unisom (doxylamine)) 25 mg PO BEDTIME PRN ergocalciferol (vitamin D2) (Vitamin D2) 1,250 mcg PO QWEEK famotidine 20 mg PO BEDTIME metoclopramide HCl (Reglan) 5 mg PO QIDACHS ondansetron 4 mg PO Q6-8H PRN pyridoxine (vitamin B6) 25 mg PO TID sennosides (senna) 17.2 mg PO BEDTIME PRN HPI HPI Pt/Prov req visit. Severe N+V: Details: LAST VISIT: Helicobacter pylori (H. pylori) GERD (gastroesophageal reflux disease) Abdominal pain IBS (irritable bowel syndrome) Constipation Nausea Postprandial epigastric pain Plan H pylori found on biopsy. Patient will start antibiotic therapy. We will need she does for right occasional the area. Continue taking lansoprazole. Avoid dietary triggers and late night snacking. Staying upright from a 3 hours after meals discussed with patient. Increase fluid intake and activity to fried better bowel patient will return in 3 months, sooner on as needed basis. She is agreeable to this plan and verbalizes understanding of instructions. She was given the opportunity to ask questions and all questions answered. ? Thank you for allowing me to participate in her care. New bismuth subsalicylate 2 tabs PO QID 112 tabs 0RF diarrhea 14 days A04.8 doxycycline hyclate 100 mg PO BID 28 caps 0RF 14 days ondansetron 4 mg PO Q8H PRN 20 tabs 0RF nausea and vomiting R11.0 metronidazole 1,000 mg (2 x 500 mg) PO BID 56 tabs 0RF A04.8 TODAY'S VISIT Patient is here today for follow-up. Patient reports that she is 14 weeks and she continues with epigastric pain, migraine in palpitations, diagnosed with PAF. 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 Reports her migraine headaches are pretty severe. Patient reports nausea, postprandial abdominal bloating. Patient is taking Reglan to help with nausea. However patient reports that sometimes it is not helping her. She continues to have nausea and occasional vomiting. Patient reports dyspepsia without dysphagia or odynophagia. Patient reports that she is moving her bowels without any issues. Denies any abdominal pain or discomfort [facility] Medical History (Updated 05/04/25 @ 14:41 by Linden Lopez MD) Helicobacter pylori (H. pylori) History of cardioversion GERD (gastroesophageal reflux disease) Obesity Depression PAF (paroxysmal atrial fibrillation) Palpitations COVID Migraine Panic attack Anxiety Asthma Surgical History History of esophagogastroduodenoscopy (EGD) H/O umbilical hernia repair (07/23/23) H/O dilation and curettage Family History Maternal Grandfather Skin cancer Paternal Grandmother Colon cancer Social History Household Members: Children Housing: Apartment Are you a primary healthcare applications analyst to a significant other at home: No Do you presently have visiting nurse or other home services: No Alcohol intake: never Comment: counts correct Patient Tobacco Use Status: Former Tobacco user Tobacco use type: Cigarette Years Smoked: 15 service: No Current occupational status: unemployed Gender identity: Female Review of Systems Const Denies weight gain and Denies weight loss ENT Reports no additional complaints, Denies dysphagia and Denies odynophagia Card Reports no additional complaints Resp Reports no additional complaints GI Denies abdominal pain, Denies belching, Denies melena, Denies bloating, Denies change in bowel habits, Denies dysphagia, Denies excessive flatus, Denies dyspepsia, Denies heartburn, Denies diarrhea, Denies loose stools, Denies nausea, Denies odynophagia and Denies vomiting Musc Reports no additional complaints Neuro Reports no additional complaints Psych Reports no additional complaints Endo Reports no additional complaints Physical Exam Vital Signs: Last Vital Signs Pulse 70 04/08/25 11:28 BP 122/76 04/08/25 11:28 Pulse Ox 100 04/08/25 11:28 Oxygen Delivery Method Room Air 04/08/25 11:28 BMI result Body Mass Index 29.8 Const General: healthy appearing, no acute distress and well developed Nutritional Appearance: well nourished and obese Orientation/consciousness: patient oriented x3 Resp Effort & Inspection: normal respiratory effort, able to speak in complete sentences, no tracheal deviation and symmetric chest movement Auscultation: clear to auscultation bilaterally Cardio Rate: regular rate GI Inspection: Yes normal to inspection, No distended and Yes other (Surgical scar umbilicus) Palpation (GI): Soft to palpation, not firm, nontender and No hepatosplenomegaly present Auscultation: normal bowel sounds General: Yes no CVA tenderness Back/Spine/Pelvis Back: no CVA tenderness Skin General skin exam: elasticity normal, turgor normal and dry skin Neuro General: patient oriented x3 Psych Appearance: grossly normal Mental Status: mental status grossly normal Assessment & Plan Assessment & Plan (1) Helicobacter pylori (H. pylori): Code(s): A04.8 - Other specified bacterial intestinal infections Category: Medical (2) Postprandial epigastric pain: Code(s): R10.13 - Epigastric pain (3) Nausea: Code(s): R11.0 - Nausea (4) Gastroesophageal reflux disease: Code(s): K21.9 - Gastro-esophageal reflux disease without esophagitis Qualifiers: Esophagitis presence: esophagitis presence not specified Qualified Code(s): K21.9 - Gastro-esophageal reflux disease without esophagitis Plan Will add sucralfate. Continue avoiding dietary triggers and late night snacking. Staying upright for minimum 3 hours after meals discussed with patient. Patient will continue taking Reglan as needed. Close follow up with her OBGYN recommended. Patient will return me in our office in 2-3 months. She will call us if he will have any GI concerning symptoms. Patient is agreeable to this plan and verbalizes understanding of instructions. She was given the opportunity to ask questions and all questions answered Thank you for allowing me to participate in her care Orders: Referrals Neurology Referral G43.909 - Migraine, unspecified, not intractable, without status migrainosus Cardiology Referral I48.0 - Paroxysmal atrial fibrillation Medications: New sucralfate 1 g PO BID 60 tabs 3RF R19.7 - Diarrhea, unspecified Coding Level of Care Code Est Pt Level 4 (34265) Complex visit Add On G2211 Diagnoses Helicobacter pylori (H. pylori) A04.8 Postprandial epigastric pain R10.13 Nausea R11.0 Gastroesophageal reflux disease, unspecified whether esophagitis present K21.9 Esophagitis presence: esophagitis presence not specified Time Spent (min) 35 Comment 25 minutes spent with patient and additional 10 minutes spent reviewing her records
[2025-04-08 11:28] VITALS: BP 122/76; PULSE 70; O2SAT 100; BMI 29.8
--- OUTSIDE RECORDS SUMMARY | 2025-04-08 14:32 | XMS_ITS | Clinical Summary ---
Demographics Address [address] [place] [address] Home Phone Preferred Language Peruvian Marital Status Nondenominational Affiliation Unknown Race Unknown Ethnic Group or Author Organization [employer] [facility] Address [address] [place] [address] Care Team Providers Care Industrial Gas Fitter Helper Name Role Phone Unavailable Primary Care Provider [...] Self [address] [place] [address]
--- OUTSIDE RECORDS SUMMARY | 2025-04-08 14:32 | XMS_ITS | Encounter Summary ---
Author Organization [employer] Address [address] [place] [address] Care Team Providers Care Want Ad Clerk Name Role Phone Demetria Chaparro Primary Care Provider [phone] Erin Thibodeaux RN Unavailable Unavailable Nessa Gutierrez Unavailable Nessa Gutierrez Unavailable Nessa Gutierrez Unavailable Reason for Visit * Reason Onset Date Comments Results 03/28/2024 Encounter Details Date Type Department Care Team (Late st Contact Info) Description 03/28/2024 Telephone [facility] [address] [place] [address] Demetria Chaparro FNP [address] [place], [place] [phone] Results Social History Tobacco Use Types Packs/Day [...] results: Lab Date when done: 03/27/24 Facility: [facility] Contact pt at [phone] documented in this encounter Plan of Treatment Not on file documented as of this encounter Visit Diagnoses Not on filedocumented in this encounter Additional Health Concerns Assessment Noted Time PHQ-9 Depression Total Score: 9 01/21/20 10:18 AM EDT documented as of this encounter Care Teams Want Ad Clerk Relationship Specialty Start Date End Date Demetria Chaparro FNP [address] [place] [address] PCP - General Family Medicine 02/06/22 Erin Thibodeaux RN [address] [place] [address] Registered Nurse Family Medicine 10/21/24 11/13/24 Nessa Gutierrez 10/21/24 12/19/24 Nessa Gutierrez 12/29/24 12/30/24 Nessa Gutierrez 03/24/25 Britany Childers Shoe PackerRail Maintenance Worker 11/12/24 documented as of this encounter
--- OUTSIDE RECORDS SUMMARY | 2025-04-08 14:33 | XMS_ITS | Encounter Summary ---
Author Organization [employer] Address [address] [place] [address] Care Team Providers Care Promotion Manager Name Role Phone Demetria Chaparro Primary Care Provider [phone] Nessa Gutierrez Unavailable Reason for Visit * Reason Onset Date Comments new referral 04/07/2025 Encounter Details Date Type Department Care Team ([facility] Contact Info) Description 04/07/2025 Telephone [facility] [address] [place] [address] Demetria Chaparro FNP [address], [place] [phone] new referral Social History Tobacco Use Types Packs/Day Years [...] encounter Miscellaneous Notes * Telephone Encounter - Araceli Keyes - 04/07/2025 2:05 PM EDT TC from pt requesting a new referral for Neurology. [facility] no show no call. PCP SALES AND CATERING COORDINATOR Shankar documented in this encounter Plan of Treatment Not on file documented as of this encounter Visit Diagnoses Not on filedocumented in this encounter Additional Health Concerns Assessment Noted Time PHQ-9 Depression Total Score: 11 024 11:19 AM EST documented as of this encounter Care Teams Promotion Manager Relationship Specialty Start Date End Date Demetria Chaparro FNP [address] [place] [address] PCP - General Family Medicine 02/06/22 Nessa Gutierrez 03/24/25 Britany Childers Circus RoustaboutLadle Puller 11/12/24 documented as of this encounter
--- OUTSIDE RECORDS SUMMARY | 2025-04-08 14:33 | XMS_ITS | Encounter Summary ---
Author Organization [email or web address] Address [address] [place] [address] Care Team Providers Care Ultra Sound Technician Name Role Phone Demetria Chaparro Primary Care Provider [phone] Erin Thibodeaux RN Unavailable Unavailable Nessa Gutierrez Unavailable Nessa Gutierrez Unavailable Nessa Gtuierrez Unavailable Reason for Visit * Reason Onset Date Comments ER Follow-up 11/06/2023 Encounter Details Date Type Department Care Team ([facility] Contact Info) Description 11/06/2023 Telephone [facility] [address] [place], [place] [phone] Demetria Chaparro FNP [address], [place] [phone] ER Follow-up Social History Tobacco Use Types [...] 11:38 AM EDT Tc to pt using [employer] P[employer] Inspector [place], [place] [id number], home energy inspector unable to reach pt, left messagefor pt to call back. * Telephone Encounter - Shelby Perez - 11/06/2023 1:06 PM EDT Patient calling to report ED visit on : Date: 10/26/23 Hospital: [facility] Seen for: abdominal pain and [...] documented as of this encounter Care Teams Ultra Sound Technician Relationship Specialty Start Date End Date Demetria Chaparro FNP [address] [place] [id number] PCP - General Family Medicine 02/06/22 Erin Thibodeaux, REID [address] [place] [id number] Registered Nurse Family Medicine 10/21/24 11/13/24 Nessa Gutierrez 10/21/24 12/19/24 Nessa Gutierrez 12/29/24 12/30/24 Nessa Gutierrez 03/24/25 Britany Childers Panel FitterRefrigerating Technician 11/12/24 documented as of this encounter
--- OUTSIDE RECORDS SUMMARY | 2025-04-08 14:33 | XMS_ITS | Clinical Summary ---
Author Organization [employer] Address [address] [place] [address] Care Team Providers Care Assistant Credit Manager Name Role Phone Demetria Chaparro Primary Care Provider [phone] Nessa Gutierrez Unavailable Allergies Active Allergy Reactions Criticality Noted Date [...] hours. 30 patch 3 01/21/20 24 Active SUMAtriptan (Imitrex) 50 [...] day. 90 tablet 3 04/21/20 24 Active cholecalciferol VITAMIN D (Vitamin D-3) 50 MCG (2000 UT) capsuleIndicati ons:Microcytic anemia Take 1 capsule (50 mcg) by mouth Once per day. 90 capsule 3 02/03/20 25 Active hydrocortisone 2.5 % creamIndication s:Dermatitis Apply pea sized amount to skin bid for 2 weeks 15 g 02/03/20 25 Active pyridoxine (Vitamin B-6) 25 MG tabletIndicatio ns:Morning sickness Take 1 tablet (25 mg) by mouth if needed in the morning, at noon, in the evening, and at bedtime (morning sickness). 60 tablet 2 02/03/20 25 2025 Active ferrous sulfate 325 (65 Fe) MG EC tabletIndicatio ns:Microcytic anemia TAKE 1 TABLET BY MOUTH TWICE A DAY. DO NOT CRUSH, CHEW OR SPLIT. 180 tablet 03/30/20 25 Active famotidine (Pepcid AC) 10 MG tabletIndicatio ns:Gastroesopha geal reflux disease, unspecified whether esophagitis present TAKE 1 TO 2 TABLETS BY MOUTH IN THE MORNING AND AT BEDTIME NEEDED FOR HEARTBURN OR INDIGESTION 120 tablet 1 03/30/20 25 Active cyanocobalamin (Vitamin B-12) 1000 MCG tablet TAKE 1 TABLET BY MOUTH EVERYDAY ON AN EMPTY STOMACH 90 tablet 3 04/07/20 25 Active Cyanocobalamin 1000 MCG capsuleIndicati ons:Routine health maintenance Take 1 capsule by mouth everyday on empty stomach. 90 capsule 3 01/21/20 24 2024 Discontinued(D uplicate order (will not trigger notification to Pharmacy)) ferrous sulfate 325 (65 Fe) MG EC tabletIndicatio ns:Microcytic anemia Take 1 tablet (325 mg) by mouth 2 times daily. Do not crush, chew, or split. 60 tablet 1 02/03/202024 Discontinued(R eorder (will not trigger notification to Pharmacy)) famotidine (Pepcid AC) 10 MG tabletIndicatio ns:Gastroesopha geal reflux disease, unspecified whether esophagitis present Take 1-2 tablets (10-20 mg) by mouth if needed in the morning and at bedtime for heartburn or indigestion. 120 tablet 1 02/03/202024 Discontinued(R eorder (will not trigger notification to Pharmacy)) Active Problems Problem Noted Date Diagnosed Date Atrial fibrillation 06/27/2024 Overview (06/27/2024): 06/14/24: [facility] ED eval for palpitations, found to be in afib with RVR on arrival. Cardioverted and resolved. Following with [facility] - Dr. 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 Walker Continues metoprolol 25mg BID and verapamil 40mg nightly Reports well controlled while taking medications Gastritis 10/09/2023 Overview (01/21/2024): Followed by [facility] Continues on lansoprazole 30mg daily Assessment & Plan (01/21/2024 5:25 PM EDT): Plan for EGD for further eval Umbilical hernia 10/09/2023 Overview (01/21/2024): Repaired by [facility] - Dr. Woo 07/23/23 Umbilical hernia repair with mesh Migraine without aura 05/31/2023 Overview (04/21/2024): Previously following with [facility] - Dr. Navarro Continues depakote 250mg nightly and sumatriptan PRN Previous med trials: topiramate. Did not experience therapeutic effect Assessment & Plan (04/21/2024 8:53 PM EST): -Referral to [facility] Neuro sent 04/21/24 Assessment & Plan (05/31/2023 9:57 AM EST): -Referral updated 05/31/23 Cobalamin deficiency 07/04/2022 Overview (01/21/2024): Continues on cyanocobalamin 1000 mcg capsule daily Re-check vit D level Gastroesophageal reflux disease without esophagi tis 07/04/2022 Overview (08/14/2024): Continues following with [facility] - [employer] Bernardo Cont Lansoprazole Assessment & Plan (08/14/2024 [...] depressive disorder 07/04/2022 Overview (10/15/2022): Following with [facility] - weekly sessions with therapist, monthly [...] Vit D, Vit B12 - Established with [facility] Jun 2024 - Dr. Sidhu. Plan: [...] NIL/HPV neg, GC/Chlamydia/trichomonas neg 05/2021. -Referred to [facility] Jan 2022 Hyperplasia of endometrium determined by biopsy Assessment & Plan (01/21/2024 5:14 PM EDT): EMB 12/19/[address] Kayla aVughn at [facility] Impression: secretory endometrium Assessment & Plan (10/15/2022 10:40 AM EDT): EMB December 2021 through [facility] Requested notes of latest [facility] visit, referral for follow up if needed Resolved Problems Problem Noted Date Diagnosed Date Resolved Date History of Helicobacter pylori infection 01/21/2024 09/14/2024 Assessment & Plan (01/21/2024 5:16 PM EDT): Tx by [facility] - [facility] [facility] Bernardo. Unable to tolerate quadruple therapy. Initiated [...] Encounters Date Type Department Care Team Description 04/07/2025 Telephone [facility] [address] [place] [address] Demetria Chaparro FNP new referral 04/07/2025 Refill [facility] [address] [place] [address] Demetria Chaparro FNP 03/30/2025 Refill [facility] [address] [place] [address] Demetria Chaparro FNP Microcytic anemia; Gastroesophageal reflux disease, unspecified whether esophagitis present 03/24/2025 Patient Outreach [facility] [address] [place] [address] Demetria Chaparro FNP Care Coordination (CP Chart Review) 03/24/2025 Patient Outreach [facility] [address] [place] [address] Demetria Chaparro FNP Care Coordination (CP ED F/U) 03/24/2025 Patient Outreach [facility] [address] [place] [address] Demetria Chaparro FNP 03/19/2025 Refill [facility] [address] [place] [address] Demetria Chaparro FNP Migraine without aura and without status migrainosus, not intractable 03/09/2025 Telephone [facility] [address] [place] [address] Nutrition referral 02/28/2025 Orders Only GENERIC EXTERNAL DATA DEPARTMENT Provider, Generic External Data 02/02/2025 11:00 AM EDT Office Visit [facility] [address] [place] [address] Demetria Chaparro FNP Less than 8 weeks gestation of (Primary Dx); Dermatitis; Gastroesophageal reflux disease, unspecified whether esophagitis present; Microcytic anemia; Morning sickness 02/02/2025 Travel 01/29/2025 Telephone [facility] [address] [place] [address] Demetria Chaparro FNP ER Follow-up 01/29/2025 Travel 01/28/2025 Orders Only GENERIC EXTERNAL DATA DEPARTMENT Provider, Generic External Data 01/27/2025 Telephone [facility] [address] [place] [address] Demetria Chaparro FNP Nurse Triage 01/20/2025 Telephone [facility] [address] [place] [address] Demetria Chaparro FNP ER Follow-up 01/18/2025 Orders Only GENERIC EXTERNAL DATA DEPARTMENT Provider, Generic External Data 01/17/2025 Orders Only GENERIC EXTERNAL DATA DEPARTMENT Provider, Generic External Data 01/14/2025 Telephone [facility] [address] [place] [address] Demetria Chaparro FNP Nurse Triage 01/07/2025 10:00 AM EDT Office Visit [facility] [address] [place] [address] Tien, Bernadette, OD Hyperopia of both eyes (Primary Dx) from Last 3 Months Immunizations Immunization Administration [...] Cervical Cancer Screening 05/22/2026 HPV/Cotest 05/22/2026 05/22/2021 Lipid Panel 01/23/2029 01/24/2024, 10/02/2022 DTaP/Tdap/Td Vaccines (3 - Td or Tdap) [...] Routine 11:36 AM EDT COVID-19 ID NOW (MINER) Routine 02/28/2025 11:36 AM EDT CBC WITH [...] QL NAAT Routine 01/17/2025 8:44 PM EDT HEPATITIS C VIRAL RNA, QUANTITATIVE, REAL-TIME PCR Routine 01/24/2024 11:05 AM EDT Routine health maintenance HIV 1/2 ANTIGEN/ANTIBODY, FOURTH GENERATION W/RFL Routine 01/24/2024 11:05 AM EDT Routine health maintenance LIPID PANEL, STANDARD Routine 01/24/2024 11:05 AM EDT Routine health maintenance PAP SMEAR Routine 05/26/2021 12:00 AM EST THINPREP IMAGING PAP AND HPV MRNA E6/E7, WITH CT/NG, TRICHOMONAS Routine 05/22/2021 7:14 PM EST from Last 3 Months or Most Recently Relevant to Health Maintenance Results * Influenza A B2 ID NOW (Miner) (02/28/2025 11:36 AM EDT) IDNOW SERIAL# [id number] [facility] Influenza A Negative Negative [facility] Influenza B2 Negative Negative [facility] Influenza A B2 Note See Note [facility] Comment:The Miner ID NOW In [...] GENERAL ORDERABLES Final Result Performing Organization Address City/State/[facility] Co de Phone Number [facility] [address] [place] [phone] * COVID-19 ID NOW (MINER) (02/28/2025 11:36 AM EDT) IDNOW SERIAL# [id number] [facility] COVID-19 TEST Negative Negative [facility] COVID-19 NOTE See Note [facility] Comment: Results are for the identification of SARS-CoV2 RNA. TheSARS-CoV2 RNA is generally detectable in respiratory samplesduring the acute phase of infection. Positive results areindicative of the presence of SARS-CoV-2 RNA; clinicalcorrelation with patient history and other diagnosticinformation is necessary to determine patient infectionstatus. Positive results do not rule out bacterial infectionor co- infection with other viruses.Testing facilities within the [facility] and itsterritories are required to report all positive results [...] use by authorized laboratories.Testing performed on the Strap NOW utilizing NAAT. 02/28/2025 11:3 6 AM EDT 02/28/2025 11:42 AM EDT us Generic External Data Provider LAB MOLECULAR DEISI GNOSTICS ORDERABLES Final Result [facility] [address] [place] [phone] * (ABNORMAL) CBC auto differential (02/28/2025 11:36 AM EDT) Only the most recent of2 resultswithin the time period is included. White Blood Count 6.4 4.8 - 10.8 X10*3/uL [facility] Red Blood Count 4.61 4.20 - 5.50 X10*6/uL [facility] Hemoglobin 12.1 12.0 - 16.0 g/dl [facility] Hematocrit 35.8(L) 37.0 - 47.0 % [facility] Mean Corpuscular Volume 77.7(L) 80.0 - 98.0 fL [facility] Mean Corpuscular Hemoglobin 26.2(L) 27.0 - 33.0 pg [facility] Mean Corpuscular HGB Conc 33.8 31.0 - 35.0 g/dl [facility] Red Cell Distribution Width 16.2(H) 11.0 - 16.0 % [facility] Platelet Count 322 160 - 400 X10*3/uL [facility] Mean Platelet Volume 9.5 9.4 - 12.3 fL [facility] Neutrophils Percent Auto 64.6 45 - 73 % [facility] Imm Gran Pct Auto 0.3 0.0 - 0.4 % [facility] Lymphocytes Percent Auto 27.3 20 - 40 % [facility] Monocytes Percent Auto 6.1 2 - 11 % [facility] Eosinophils Percent Auto 1.1 0 - 4 % [facility] Basophils Percent Auto 0.6 0 - 2 % [facility] NRBC Pct Auto 0.0 0.0 - 0.2 /100WBC [facility] Neutrophils Absolute Auto 4.2 2.0 - 8.3 x10*3/uL [facility] Imm Gran Abs Auto 0.02 0.00 - 0.03 X10*3/uL [facility] Lymphocytes Absolute Auto 1.8 1.2 - 4.9 X10*3/uL [facility] Monocytes Absolute Auto 0.4 0.1 - 1.2 X10*3/uL [facility] Eosinophils Absolute Auto 0.1 0.0 - 0.4 X10*3/uL [facility] Basophils Absolute Auto 0.0 0.0 - 0.2 X10*3/uL [facility] NRBC Abs Auto 0.000 0.0 - 0.012 X10*3/uL [facility] 02/28/2025 11:3 6 AM EDT 02/28/2025 11:42 AM EDT us Generic External Data Provider LAB BLOOD ORDERAB LES Final Result [facility] [address] [place] [phone] * hCG, Total, Quantitative (02/28/2025 11:36 AM EDT) Only the most recent of3 resultswithin the time period is included. HCG Quantitative 121,203 mIU/mL [facility] Comment:Verified by dilution Weeks post LMP Approximate hCG(Last Menstrual Period) Range (mIU/ml)3 - 4 weeks 9 - 1304 - 5 weeks 75 - 2,6005 - 6 weeks 850 - 20,8006 - 7 weeks 4000 - 100,2007 - 12 weeks 11,500 - 289,75402 - 16 weeks 18,300 - 137,30768 - 29 weeks (2nd trimester) 1,400 - 53,67954 - 41 weeks (3rd trimester) 940 - [...] ORDERAB LES Final Result Performing Organization Address [facility] Co de Phone Number [facility] [address] [place] [phone] * Magnesium (02/28/2025 11:36 AM EDT) Magnesium 2.0 1.6 - 2.6 mg/dL [facility] 02/28/2025 11:3 6 AM EDT 02/28/2025 11:42 AM EDT Generic External Data Provider LAB BLOOD ORDERAB LES Final Result Performing Organization Address [facility] Co de Phone Number [facility] [address] [place] [phone] * Hepatic Function Panel (02/28/2025 11:36 AM EDT) Bilirubin, Total 0.4 0.0 - 1.0 mg/dL [facility] Bilirubin, Direct 0.2 0.0 - 0.5 mg/dL [facility] Aspartate Amino Transferase 22 5 - 31 U/L [facility] Alanine Aminotransferase 17 0 - 31 U/L [facility] Total Protein 7.1 6.5 - 8.0 g/dL [facility] Albumin Level 4.3 3.5 - 5.0 g/dL [facility] Alkaline Phosphatase 56 39 - 117 U/L [facility] 02/28/2025 11:3 6 AM EDT 02/28/2025 11:42 AM EDT us Generic External Data Provider LAB BLOOD ORDERAB LES Final Result [facility] [address] [place] [phone] [phone] * (ABNORMAL) Basic Metabolic Panel (02/28/2025 11:36 AM EDT) Only the most recent of2 resultswithin the time period is included. Sodium 136 135 - 145 mmol/L [facility] Potassium 3.5 3.3 - 5.1 mmol/L [facility] Chloride 110(H) 96 - 108 mmol/L [facility] Carbon Dioxide 19(L) 22 - 29 mmol/L [facility] Anion Gap 11(L) 12 - 20 [facility] Urea Nitrogen (BUN) 6(L) 9 - 16 mg/dL [facility] Creatinine, Serum 0.69 0.5 - 1.4 mg/dL [facility] Creatinine Clr Calc Pharmacy 110.9 [facility] Comment:Provided height and weight: 160.02 cm,78.8 kg.eGFR (calculated from the MDRD study equation) and eCrCl(calculated from the Cockcroft-Gault equation) are based ondifferent parameters and may not yield comparable results.If eCrCl result is absurd, please check patient'sheight/weight. Estimated Glomerular Filt Rate >60 [facility] Comment:Chronic Kidney Disea se: Estimated GFR < 60 mL/min/1.95y2Qrrecm Kidney Disease: Estimated GFR < 15 mL/min/1.73m2 Glucose 126(H) 60 - 115 mg/dL [facility] Calcium 9.5 8.4 - 10.2 mg/dL [facility] 02/28/2025 11:3 6 AM EDT 02/28/2025 11:42 AM EDT us Generic External Data Provider LAB BLOOD ORDERAB LES Final Result Performing Organization Address City/State/[facility] Co de Phone Number [facility] [address] [place] [phone] * US OB Pelvis with Transvaginal (01/29/2025 3:53 AM EDT) Anatomical Region Laterality Modality Pelvis Ultrasound 01/29/2025 3:53 AM EDT Narrative 01/29/2025 3:55 AM EDT [address] [address] Ultrasound Report Signed Patient: Rafita Kuo MR#: [id number] : 1990 Acct:[id number] Age/Sex: 34 / F ADM Date: 01/28/25 Loc: HO.ED Attending Dr: Ordering Physician: Bianka Sheikh MD Date of Service: 01/29/25 Procedure(s): US OB pelvic and transvaginal Accession Number(s): [id number] cc: Bianka Sheikh MD; Demetria Chaparro CLINICAL [...] in OV> 01/29/25353 DD/ 2 TD/TT: 01/29/25352 Vocational Training Teacher: Procedure Note Donotuseinterpreter, Image - 01/29/[address] [address] Ultrasound Report Signed Patient: Rafita KuoMR#: [id number] : 1990Acct:[id number] Age/Sex: 34 / FADM Date: 01/28/25 Loc: .ED Attending Dr: Ordering Physician: Bianka Sheikh MD Date of Service: 01/29/25 Procedure(s): US OB pelvic and transvaginal Accession Number(s): [id number] cc: Bianka Sheikh MD; Demetria Chaparro CLINICAL [...] signed by Leighton Son MD in OV> 08/353 DD/ 2 TD/TT: 01/29/25352 Vocational Training Teacher: [facility] External Provider IMG US PROCEDURES Final Result * C.TRACHOMATIS/N. GONORRHOEAE DNA PROBE (01/28/2025 11:57 PM EDT) CTNG Ref Lab [facility] Comment:TEST NOT PERFORMEDSp ecimen transport devicecontained cleaning swab insteadof the collection swab.THIS TEST WAS PERFORMED AT:[employer] [place] [phone] WOODS MD NG Ref Lab [facility] CTNG Ref Note [facility] 01/28/2025 11:5 7 PM EDT 01/29/2025 8:31 AM EDT Narrative [facility] - 02/12/2025 12:03 PM EDT SPURCE=VAG/CERV Generic External Data Provider LAB MICROBIOLOGY - GENERAL ORDERABLES Final Result Performing Organization Address City/[facility]/ZIP Co de Phone Number [facility] [address] [place] [phone] * Wet prep, genital (01/28/2025 11:57 PM EDT) Vaginal Fluid Vaginal structure / Unknown 01/28/2025 11:57 PM EDT 01/29/2025 Comment:Vaginal Narrative [facility] - 01/29/2025 12:44 AM EDT Trichomonas Prep Direct Microscopic Exam Trichomonas Prep No trichomonads or yeast seen Specimen Source: Vaginal Generic External Data Provider LAB MICROBIOLOGY - GENERAL ORDERABLES Final Result Performing Organization Address City/[facility]/ZIP Co de Phone Number [facility] [address] [place] [phone] * (ABNORMAL) Urinalysis, Complete, with Reflex to Culture (01/28/2025 10:12 PM EDT) Only the most recent of2 resultswithin the time period is included. Color Urine Yellow [facility] Appearance Urine Clear [facility] PH >=9.0 5.0 - 9.0 [facility] Glucose Urine UA Negative Negative mg/dL [facility] Urine Blood Negative Negative [facility] Specific [place] - Urine 1.010 1.005 - 1.025 [facility] Urine Protein Negative Neg-Trace mg/dL [facility] Urine Ketones Negative Negative mg/dL [facility] Nitrite Urine Negative Negative [facility] Leukocyte Esterase Urine Trace(A) Negative [facility] RBC Urine 0-2 0 - 2 /HPF [facility] Urine WBC 0-5 0 - 5 /HPF [facility] Urine Squamous Epithelial Cell 0-2 0 - 2 /HPF [facility] Urine Bacteria None Seen None Seen [facility] Hyaline Casts, Urine 0-2 0 - 2 /LPF [facility] 01/28/2025 10:1 2 PM EDT 01/28/2025 10:14 PM EDT Narrative [facility] - 01/28/2025 10:24 PM EDT [id number], Clean C[employer] us Generic External Data Provider LAB URINE ORDERAB LES Final Result [facility] [address] [place] [phone] * (ABNORMAL) Comprehensive Metabolic Panel (01/28/2025 10:08 PM EDT) Sodium 142 135 - 145 mmol/L [facility] Potassium 3.8 3.3 - 5.1 mmol/L [facility] Chloride 109(H) 96 - 108 mmol/L [facility] Carbon Dioxide 24 22 - 29 mmol/L [facility] Anion Gap 13 12 - 20 [facility] Urea Nitrogen (BUN) 7(L) 9 - 16 mg/dL [facility] Creatinine, Serum 0.74 0.5 - 1.4 mg/dL [facility] Creatinine Clr Calc Pharmacy 105.4 [facility] Comment:Provided height and weight: 160.02 cm,80.286 kg.eGFR (calculated from the MDRD study equation) and eCrCl(calculated from the Cockcroft-Gault equation) are based ondifferent parameters and may not yield comparable results.If eCrCl result is absurd, please check patient'sheight/weight. Estimated Glomerular Filt Rate >60 [facility] Comment:Chronic Kidney Disea se: Estimated GFR < 60 mL/min/1.66r0Geyicn Kidney Disease: Estimated GFR < 15 mL/min/1.73m2 Glucose 101 60 - 115 mg/dL [facility] Calcium 9.7 8.4 - 10.2 mg/dL [facility] Bilirubin, Total 0.2 0.0 - 1.0 mg/dL [facility] Aspartate Amino Transferase 24 5 - 31 U/L [facility] Alanine Aminotransferase 29 0 - 31 U/L [facility] Total Protein 6.9 6.5 - 8.0 g/dL [facility] Albumin Level 4.2 3.5 - 5.0 g/dL [facility] Alkaline Phosphatase 73 39 - 117 U/L [facility] 01/28/2025 10:0 8 PM EDT 01/28/2025 10:14 PM EDT us Generic External Data Provider LAB BLOOD ORDERAB LES Final Result [facility] [address] [place] [address] [phone] * US Pelvis Transvaginal (01/18/2025 1:08 AM EDT) Anatomical Region Laterality Modality Pelvis Ultrasound 01/18/2025 1:08 AM EDT Narrative 01/18/2025 1:09 AM EDT [address] [address] Ultrasound Report Signed Patient: Rafita Kuo MR#: [id number] : 1990 Acct:[id number] Age/Sex: 34 / F ADM Date: 01/17/25 Loc: HO.ED Attending Dr: Ordering Physician: Matheus Galdamez PA-C Date of Service: 01/17/25 Procedure(s): US pelvic and transvaginal Accession Number(s): [id number] cc: Matheus Galdamez PA-C; Demetria Chaparro CLINICAL [...] in OV> 01/18/25107 DD/ 7 TD/TT: 01/18/25107 Vocational Training Teacher: Procedure Note Donotuseinterpreter, Image - 01/18/[address] [address] Ultrasound Report Signed Patient: Rafita Kuo#: [id number] : 1990Acct:[id number] Age/Sex: 34 / FADM Date: 01/17/25 Loc: HO.ED Attending Dr: Ordering Physician: Matheus Galdamez PA-C Date of Service: 01/17/25 Procedure(s): US pelvic and transvaginal Accession Number(s): [id number] cc: Matheus Galdamez PA-C; Demetria Chaparro CLINICAL [...] in OV> 01/18/25107 DD/ 7 TD/TT: 01/18/25107 Vocational Training Teacher: us [facility] External Provider IMG US PROCEDURES Edited Result - Final * HCG, Qualitative, Urine (01/18/2025 12:23 AM EDT) Urine NEGATIVE NEGATIVE [facility] Comment:This test was develo ped to detect early . Falsenegative results may occur after the 5th - 7th week ofpregnancy when using this test method. If clinicallyindicated, consider a serum hCG. 01/18/2025 12:2 3 AM EDT 01/18/2025 12:27 AM EDT Generic External Data Provider LAB URINE ORDERAB LES Final Result Performing Organization Address [facility] Co de Phone Number [facility] [address] [place] [phone] * SARS-CoV-2 RNA, Influenza A/B, and RSV RNA, Ql NAAT (01/17/2025 8:44 PM EDT) Influenza A PCR NEGATIVE Negative [facility] Influenza B PCR NEGATIVE Negative [facility] Resp Syncy Virus RNA Qual PCR NEGATIVE Negative [facility] SARS COV2 PCR NEGATIVE Negative [facility] Comment:All test results mus t [...] use by authorized laboratories.Testing performed on the [employer] GeneXpert utilizingreal-time RT-PCR.All SARS CoV2 and positive influenza A/B results arereported to [facility]. 01/17/2025 8:44 PM EDT 01/17/2025 8:54 PM EDT Generic External Data Provider LAB MICROBIOLOGY - GENERAL ORDERABLES Final Result Performing Organization Address [facility] [facility]/ZIP Co de Phone Number [facility] [address] [place] [address] [phone] * (ABNORMAL) CBC (01/17/2025 8:44 PM EDT) [facility] White Blood Count 7.0 4.8 - 10.8 X10*3/uL [facility] Red Blood Count 4.37 4.20 - 5.50 X10*6/uL [facility] Hemoglobin 11.1(L) 12.0 - 16.0 g/dl [facility] Hematocrit 33.4(L) 37.0 - 47.0 % [facility] Mean Corpuscular Volume 76.4(L) 80.0 - 98.0 fL [facility] Mean Corpuscular Hemoglobin 25.4(L) 27.0 - 33.0 pg [facility] Mean Corpuscular HGB Conc 33.2 31.0 - 35.0 g/dl [facility] Red Cell Distribution Width 16.7(H) 11.0 - 16.0 % [facility] Platelet Count 305 160 - 400 X10*3/uL [facility] Mean Platelet Volume 10.2 9.4 - 12.3 fL [facility] NRBC Pct Auto 0.0 0.0 - 0.2 /100WBC [facility] NRBC Abs Auto 0.000 0.0 - 0.012 X10*3/uL [facility] 01/17/2025 8:44 PM EDT 01/17/2025 8:54 PM EDT us Generic External Data Provider LAB BLOOD ORDERAB LES Final Result [facility] [address] [place] [phone] * Hepatitis C Viral RNA, Quantitative, Real-Time PCR (01/24/2024 11:05 AM EDT) [facility] Hepatitis C Viral Load <15 NOT DETECTED NOT DETECTED IU/mL [facility] HCV Log PCR <1.18 NOT DETECTED NOT DETECTED Log IU/mL [facility] Comment:For additional infor mars, please refer tohttp://education.[employer]/faq/IVG38q3(This link is being provided for informational/educational purposes only.)THIS TEST WAS PERFORMED AT:[employer] [place] [phone] WOODS MD Blood 01/24/2024 11:0 5 AM EDT 01/24/2024 2:06 PM EDT Demetria Chaparro METAL ROOFING MECHANIC LAB BLOOD ORDERABLES Final Res ult Performing Organization Address [facility] Co de Phone Number [facility] [address] [place] [phone] * HIV-1/2 Antigen and Antibodies, Fourth Generation, with Reflexes (01/24/2024 11:05 AM EDT) HIV AB/AG Nonreactive Nonreactive [facility] Comment:HIV-1 p24 Ag and/or HIV-1/HIV-2 Ab not detected.A test result that is nonreactive does not exclude thepossibility of exposure to or infection with HIV-1 and/orHIV-2. Nonreactive results in this assay for individualswith prior exposure to HIV-1 and/or HIV-2 may be due toantigen and antibody levels that are below the limit ofdetection of this assay.The [employer] HIV Ag/Ab Combo assay result andsupplemental assay results should be interpreted inconjunction with the patient's clinical presentation,history and other laboratory results. If the results areinconsistent with clinical evidence, additional testing issuggested to confirm the result. Blood Venous blood specimen / Unknown 01/24/2024 11:05 AM EDT 01/24/2024 2:04 PM EDT us Demetria Chaparro METAL ROOFING MECHANIC LAB BLOOD ORDERABLES Final Res ult Performing Organization Address [facility]/ZIP Co de Phone Number [facility] [address] [place] [address] [phone] * (ABNORMAL) Lipid Panel, Standard (01/24/2024 11:05 AM EDT) Triglycerides 192(H) <150 mg/dL [facility] Comment:Desirable Triglyceri de: less than 150 mg/dLBorderline High Triglyceride 150-199 mg/dLHigh Triglyceride: 200-499 mg/dLVery High Triglyceride: greater than or equal to 5OO mg/dL Cholesterol 229(H) <200 mg/dL [facility] Comment:Desirable Cholestero l: less than 200 mg/dLBorderline High Cholesterol: 200-239 mg/dLHigh Cholesterol: greater than 239 mg/dL LDL Cholesterol Calculated 141(H) <100 mg/dL [facility] Comment:Desirable LDL: less than 100 mg/dLNear Optimal/Above Optimal LDL: 110- 129 mg/dLBorderline High LDL: 130-159 mg/dLHigh LDL: 160-189 mg/dLVery High LDL: greater than or equal to 190 mg/dL HDL Cholesterol 50 >40 mg/dL [facility] Comment:Desirable HDL: great er than 40 mg/dL Note: This HDL assay may give artificially low results in patients with liver disease. Blood Venous blood specimen / Unknown 01/24/2024 11:05 AM EDT 01/24/2024 2:06 PM EDT us Demetria Chaparro METAL ROOFING MECHANIC LAB BLOOD ORDERABLES Final Res ult Performing Organization Address [facility]/ZIP Co de Phone Number [facility] [address] [place] [address] [phone] * Pap Smear (05/26/2021 12:00 AM EST) Swab Soniya Garcia CNM LAB CYTOLOGY ORDERABLES F inal Result Performing Organization Address City/[facility]/ZIP Co de Phone Number [facility] [address], [place] [address] * THINPREP TIS PAP AND HPV mRNA E6/E7, CT/NG, TRICH (05/22/2021 7:14 PM EST) Chlamydia trachomatis RNA, TMA, Urogenital NOT DETECTED NOT DETECTED [facility] Clinical Information: None given [facility] COMMENT SEE COMMENT [facility] Comment: The analytical performance characteristics of this assay, when used to test SurePath(TM) specimens have been determined by [employer]. The modifications have not been cleared or approved by the FDA. This assay has been validated pursuant to the CLIA regulations and is used for clinical purposes. For additional information, please refer to https://education.[employer]ooking/faq/LWK648 (This link is being provided for information/ [...] was manually screened according to routine procedures. Prosecuting Attorney: SEE COMMENT [facility] Comment: MELANY REARDON(ASCP) CT screening location: [place] [address] HPV nRNA E6/E7 Not Detected Not Detected [facility] Comment: Methodology: Nursing Techn-Mediated Amplification This assay detects E6/E7 viral messenger RNA (mRNA) from 14 high-risk HPV types (16,18,31,33,35,39,45,51,52,56,58,59,66,68). The analytical performance characteristics of this assay have been determined by [employer]. The modifications have not been cleared or approved by the FDA. This assay has been validated pursuant to the CLIA regulations and is used for clinical purposes. For additional information, please refer to http://education.[employer]/faq/LFW369p7 (This link if provided for information/ educational purposes only.) Interpretation/Re sult: Unable to provide interpretation due to unsatisfactory specimen adequacy. [facility] LMP: NONE GIVEN [facility] Neisseria gonorrhoeae RNA, TMA, Urogenital NOT DETECTED NOT DETECTED [facility] Prev. BX: NONE GIVEN [facility] Prev. PAP: NONE [facility]IVEN [facility] Review Prosecuting Attorney: SEE COMMENT [facility] Comment: GSG, CT(ASCP) CT screening location: [place] [address] SOURCE: None given [facility] Statement Of Adequacy: SEE COMMENT [facility] Comment: Specimen processed and examined, but unsatisfactory for evaluation due to an insufficient number of squamous cells. Partially obscuring blood Trichomonas vaginalis, QL, TMA, PAP Vial NOT DETECTED NOT DETECTED [facility] Comment: The analytical performance characteristics of this assay have been determined by [employer]. The modifications have not been cleared or approved by the FDA. This assay has been validated pursuant to the CLIA regulations and is used for clinical purposes. For additional information, please refer to http://education.[employer]/ faq/Trichomonastma (This link is being provided for information/ educational purposes only.) NO COLLECTION DATE RECEIVED. WE HAVE USED THE DATE THE SPECIMEN WAS RECEIVED BY THIS LABORATORY THE COLLECTION DATE. IF THIS IS INCORRECT, PLEASE CONTACT CLIENT SERVICES. PHONE NUMBER: 05/22/2021 7:14 PM EST Tiff Galdamez NP LAB PATHOLOGY ORDERABLES Final Result [facility] [address] from Last 3 Months or Most Recently Relevant to Health Maintenance Insurance [facility] C[place] AD[place] Care Teams Assistant Credit Manager Relationship Specialty Start Date End Date Demetria Chaparro FNP [address] [place] [address] PCP - General Family Medicine 02/06/22 Nessa Gutierrez 03/24/25 Britany Childers Nuclear Station OperatorDivision Field Inspector 11/12/24
--- OUTSIDE RECORDS SUMMARY | 2025-04-08 14:33 | XMS_ITS | Encounter Summary ---
Author Organization [employer] Address [address] [facility] 7t [place] [address] Care Team Providers Care Plastic Surgery Coordinator Name Role Phone Demetria Chaparro Primary Care Provider [phone] Nessa Gutierrez Unavailable Reason for Visit * Reason Onset Date Comments Med Refill 04/07/2025 Encounter Details Date Type Department Care Team ([facility] st Contact Info) Description 04/07/2025 Refill [facility] [address] [place] [address] Demetria Chaparro FNP [address] [place] [address] Social History Tobacco Use Types Packs/Day Years [...] housing situation today? I have reycallie hicks 01/21/[address] you [...] encounter Miscellaneous Notes * Telephone Encounter - Divina Monterroso LPN - 04/07/2025 11:42 AM EDT Last seen 02/02/25. documented in this encounter Plan of Treatment Not on file documented as of this encounter Visit Diagnoses Not on filedocumented in this encounter Additional Health Concerns Assessment Noted Time PHQ-9 Depression Total Score: 11 024 11:19 AM EST documented as of this encounter Care Teams Plastic Surgery Coordinator Relationship Specialty Start Date End Date Demetria Chaparro FNP [address] [place] [address] PCP - General Family Medicine 02/06/22 Nessa Gutierrez 03/24/25 Britany Childers Fish ProtectorAirset Molder 11/12/24 documented as of this encounter
--- OUTSIDE RECORDS SUMMARY | 2025-04-08 14:33 | XMS_ITS | Encounter Summary ---
Author Organization [employer] Address [address] [facility] 7t [place] [address] Care Team Providers Care Administrative Dietitian Name Role Phone Demetria Chaparro MERCHANDISE COORDINATOR Primary Care Provider [phone] Erin Thibodeaux RN Unavailable Unavailable Nessa Gutierrez Unavailable Nessa Gutierrez Unavailable Nessa Gutierrez Unavailable Encounter Details Date Type Department Care Team (Late st Contact Info) Description 10/12/2023 Orders Only [facility] [address] [place] [address] Trey Garcia MD [address] [place] [address] Acute cystitis with hematuria (Primary Dx) Social [...] documented as of this encounter Care Teams Administrative Dietitian Relationship Specialty Start Date End Date Demetria Chaparro FNP [address] [place] [address] PCP - General Family Medicine 02/06/22 Erin Thibodeaux, REID [address] [place] [address] Registered Nurse Family Medicine 10/21/24 11/13/24 Nessa Gutierrez 10/21/24 12/19/24 Nessa Gutierrez 12/29/24 12/30/24 Nessa Gutierrez 03/24/25 Britany Childers Plasterer Spray GunCrystal Grower 11/12/24 documented as of this encounter
--- OUTSIDE RECORDS SUMMARY | 2025-04-08 14:33 | XMS_ITS ---
Author Organization [employer] Address [address] [place] [address] [address] [address] Care Team Providers Care Gerentological Physiotherapist Name Role Phone Demetria Chaparro Primary Care Provider [phone] Nessa Gutierrez Unavailable CHW Complex Status:Outreach In Progress (Enrolling) Start date:03/24/2025 Enrollment reason:ADT Feed Overview CP Assigned Patient- Pt went to [facility] on 03/24/25. . Case Team Name Relationship Phone Nessa Gutierrez(Responsible Staff) [phone] Continued Care and Services Coordination
--- OUTSIDE RECORDS SUMMARY | 2025-04-08 14:33 | XMS_ITS | Encounter Summary ---
Author Organization [employer] Address [address] [facility] [address] [place] [address] Care Team Providers Care Weather Reporter Name Role Phone Demetria Chaparro Primary Care Provider Nessa Gutierrez Unavailable Nessa Gutierrez Unavailable Nessa Gutierrez Unavailable Reason for Visit * Reason Onset Date Comments Nurse Triage 12/08/2024 Encounter Details Date Type Department Care Team (Late st Contact Info) Description 12/08/2024 Telephone [facility] [address] [place] [address] Demetria Chaparro FNP [address] [place], [place] [phone] Nurse Triage Social History Tobacco Use Types [...] just finished period. Pt is advised to increase liquids to 6-8 glasses daily and if test obtained use first urine in the morning. Pt agrees. Pt is advised to come to be seen in [facility] today open till 8pm. No apts available in [facility] today or tomorrow. Insurance is verified [...] documented as of this encounter Care Teams Weather Reporter Relationship Specialty Start Date End Date Dmeetria Chaparro FNP [address] [place] [address] PCP - General Family Medicine 02/06/22 Nessa Gutierrez 10/21/24 12/19/24 Nessa Gutierrez 12/29/24 12/30/24 Nessa Gutierrez 03/24/25 Britany Childers Electrical Checkout MechanicAlliances Consultant 11/12/24 documented as of this encounter
--- OUTSIDE RECORDS SUMMARY | 2025-04-08 14:33 | XMS_ITS | Encounter Summary ---
Author Organization [employer] Address [address] [facility] 7[address] [place] [address] Care Team Providers Care Airline Captain Name Role Phone Demetria Chaparro Primary Care Provider [phone] Erin Thibodeaux RN Unavailable Unavailable Nessa Gutierrez Unavailable Nessa Gutierrez Unavailable Nessa Gutierrez Unavailable Reason for Visit * Reason Onset Date Comments Appointment Request 08/28/2022 Encounter Details Date Type Department Care Team (Late st Contact Info) Description 08/28/2022 Telephone [facility] [address] [place] [address] Demetria Chaparro FNP [address] [place], [place] [phone] Appointment Request Social History Tobacco Use Types [...] - 08/28/2022 4:15 PM EDT Tc from [facility] with N requesting a physical appt for pt. Please contact pt at [phone] documented in this encounter Plan of Treatment Not on file documented as of this encounter Visit Diagnoses Not on filedocumented in this encounter Additional Health Concerns Assessment Noted Time PHQ-9 Depression Total Score: 0 07/04/19 23 11:01 AM EST documented as of this encounter Care Teams Airline Captain Relationship Specialty Start Date End Date Demetria Chaparro FNP [address] [place] [address] PCP - General Family Medicine 02/06/22 Erin Thibodeaux RN [address] [place] [address] Registered Nurse Family Medicine 10/21/24 11/13/24 Nessa Gutierrez 10/21/24 12/19/24 Nessa Gutierrez 12/29/24 12/30/24 Nessa Gutierrez 03/24/25 Britany Childers Basket Hand WeaverDisposal Man 11/12/24 documented as of this encounter
--- OUTSIDE RECORDS SUMMARY | 2025-04-08 14:33 | XMS_ITS | Encounter Summary ---
Author Organization [employer] Address [address] [facility] [address] 7[address] [place] [address] Care Team Providers Care Mine Technician Name Role Phone Demetria Chaparro Primary Care Provider [phone] Erin Thibodeaux RN Unavailable Unavailable Nessa Gutierrez Unavailable Nessa Gutierrez Unavailable Nessa Gutierrez Unavailable Reason for Visit * Reason Onset Date Comments Nurse Triage 09/05/2023 Encounter Details Date Type Department Care Team (Late st Contact Info) Description 09/05/2023 Telephone [facility] [address] [place] [address] Demetria Chaparro FNP [address] [place], [place] [phone] Nurse Triage Social History Tobacco Use Types [...] PM EDT Triage call attempted x2 with [facility] Services Coordinator ID [id number] Pt didn't answer. Left voice message to call [facility] [phone] * Telephone Encounter - Shelby Perez - [...] documented as of this encounter Care Teams Mine Technician Relationship Specialty Start Date End Date Demetria Chaparro FNP [address] [place] [address] PCP - General Family Medicine 02/06/22 Erin Thibodeaux RN [address] [place] [address] Registered Nurse Family Medicine 10/21/24 11/13/24 Nessa Gutierrez 10/21/24 12/19/24 Nessa Gutierrez 12/29/24 12/30/24 Nessa Gutierrez 03/24/25 Britany Childers Rental ClerkManager Medicaid 11/12/24 documented as of this encounter
== END 2025-04-08 11:50 | disposition home or self-care (01) ==
LOC: HO.HGI 11:22
PROVIDERS: PCP Physician Assistant; Visit Provider Nurse Practitioner Family
DX: A04.8 Other specified bacterial intestinal infections (principal); R10.13 Epigastric pain; R11.0 Nausea; K21.9 Gastro-esophageal reflux disease without esophagitis
CPT/HCPCS: 99214

== ENCOUNTER → 2025-04-08 11:21 | Outpatient (BNVA) | payer MEDICAID, SELFPAY | PROVIDERS: PCP Physician Assistant; Visit Provider Nurse Practitioner Family | DX: A04.8 Other specified bacterial intestinal infections (principal); R10.13 Epigastric pain; R11.0 Nausea; K21.9 Gastro-esophageal reflux disease without esophagitis | CPT/HCPCS: 99212 ==

== ENCOUNTER 2025-05-04 14:05 | Outpatient (AMB) | payer MEDICAID, SELFPAY ==
[2025-05-04 14:22] VITALS: BP 116/60; PULSE 89; BMI 29.3
--- NOTE | 2025-05-04 14:22 | A.OFFVIS_ITS ---
Vital Signs 05/04/25 14:22 Height 5 ft 3 in Weight 165 lb 5.547 oz BMI 29.3 BP 116/60 Blood Pressure Location Lt brachial Position Sitting Pulse 89 Pulse Source Pulse Oximeter Intake Visit Reasons: hx of Afib/17 weeks Allergies ibuprofen Allergy (Mild, Verified 03/23/25 23:28) Gastrointestinal Upset Iodinated Contrast Media Allergy (Verified 03/23/25 23:28) Swelling shellfish derived Allergy (Verified 03/23/25 23:28) Unknown Medication List - Last Reconciled 05/04/25 by Linden Lopez MD acetaminophen (Tylenol Extra Strength) 1,000 mg (2 x 500 mg) PO Q6H PRN albuterol sulfate 90 mcg/actuation (ProAir HFA) 1 puff PO Q4-6H PRN doxylamine succinate (Unisom (doxylamine)) 25 mg PO BEDTIME PRN ergocalciferol (vitamin D2) (Vitamin D2) 1,250 mcg PO QWEEK famotidine 20 mg PO BEDTIME metoclopramide HCl (Reglan) 5 mg PO QIDACHS ondansetron 4 mg PO Q6-8H PRN pyridoxine (vitamin B6) 25 mg PO TID sennosides (senna) 17.2 mg PO BEDTIME PRN sucralfate 1 g PO BID HPI Comments Details: Patient has been referred for evaluation of atrial fibrillation. She was previously seen at [facility], but would like to switch. Currently, she is 18 weeks . It seems that she has had history of PVCs. In June of this year, she was seen regarding palpitations found to be in atrial fibrillation rapid rate apparently the 180s. At that time, she underwent cardioversion. Currently, she is not on any rate control or rhythm control medications or anticoagulation. She states she still gets some palpitations off and on. No other complaints like angina or shortness of breath. [facility] Medical History (Updated 05/04/25 @ 14:41 by Linden Lopez MD) Helicobacter pylori (H. pylori) History of cardioversion GERD (gastroesophageal reflux disease) Obesity Depression PAF (paroxysmal atrial fibrillation) Palpitations COVID Migraine Panic attack Anxiety Asthma Surgical History History of esophagogastroduodenoscopy (EGD) H/O umbilical hernia repair (07/23/23) H/O dilation and curettage Family History Maternal Grandfather Skin cancer Paternal Grandmother Colon cancer Social History Household Members: Children Housing: Apartment Are you a primary care team coordinator scheduler to a significant other at home: No Do you presently have visiting nurse or other home services: No Alcohol intake: never Comment: counts correct Patient Tobacco Use Status: Former Tobacco user Tobacco use type: Cigarette Years Smoked: 15 service: No Current occupational status: unemployed Gender identity: Female Review of Systems Const Denies weakness ENT Reports dizziness Card Denies chest pain, Denies chest pain with activity, Denies syncope, Denies rapid heart rate, Denies pedal edema, Denies edema, Denies leg edema, Denies lightheadedness, Reports palpitations, Reports dyspnea, Reports dyspnea on exertion and Reports orthopnea Resp Denies cough, Reports dyspnea and Reports dyspnea on exertion GI Denies hematochezia and Denies change in stool character Musc Denies abnormal gait, Denies muscle cramps, Denies muscle weakness, Denies numbness, Denies radiating pain into limb and Denies tingling Neuro Denies abnormal gait, Reports dizziness, Denies syncope, Denies numbness, Denies tingling and Denies weakness Endo Reports palpitations Physical Exam Vital Signs: Last Vital Signs Pulse 89 05/04/25 14:22 BP 116/60 05/04/25 14:22 BMI result Body Mass Index 29.3 Const General: comfortable and no acute distress Orientation/consciousness: patient oriented x3 HEENT Other: Unremarkable Head: Yes normal to inspection Neck Neck: Yes normal visual inspection Chest Chest palpation & inspection: normal inspection of the chest Resp Auscultation: clear to auscultation bilaterally Cardio Palpation: normal PMI Heart sounds: S1 normal heart sound present, S2 normal heart sound present, no gallops, no murmurs and no rubs GI Palpation (GI): Soft to palpation Back/Spine/Pelvis Other: unremarkable Skin General skin exam: no rashes or lesions noted Neuro General: patient oriented x3 Extrem General: Yes normal to inspection Psych Mental Status: mental status grossly normal Assessment & Plan Assessment & Plan (1) PAF (paroxysmal atrial fibrillation): Code(s): I48.0 - Paroxysmal atrial fibrillation Category: Medical (2) Ventricular premature beats: Code(s): I49.3 - Ventricular premature depolarization Category: Medical Plan EKGs from [facility] reviewed. In June of this year, when EKGs shows atrial fibrillation at a rate of 131/Min with nonspecific ST-T changes. A follow-up EKG then shows sinus tachycardia. Exercise stress echo from 05/2024-negative at 10 METS. 2D echo from 07/2024-LVEF low normal 55%. Normal diastolic filling. No significant valvular findings. It seems that she was already had a sleep study as well as pending follow up with sleep medicine. Overall, 18 weeks ; history of atrial fibrillation rapid rate status post cardioversion; PVCs. We will repeat echocardiogram to reassess LVEF. Holter monitor. Considering , we will avoid all medications unless there is truly recurrent atrial fibrillation with a rapid rate. In that case, will require EP consultation. Follow up in 3 months' time. Discussion Notes I discussed with the patient that we try to avoid medications during if possible. I explained that we need to keep a close eye on the patient's heart condition throughout the . I informed the patient that I am ordering an echocardiogram and a Holter monitor for further evaluation. I also mentioned the possibility of consulting an electrophysiology specialist, who has more expertise in managing atrial fibrillation. We will have a follow-up visit in about three weeks to review the results of the tests. Patient was informed and verbally consented to the use of an ambient scribe for clinic note documentation during this visit. Orders: Orders CA echo transthoracic complete Today I48.0 - Paroxysmal atrial fibrillation ECG holter monitor 48 hour Today I48.0 - Paroxysmal atrial fibrillation Patient Instructions: - We will monitor your heart closely during your . - You will need to undergo an echocardiogram (an ultrasound of your heart) and wear a Holter monitor to track your heart's rhythm. - Please schedule a follow-up appointment in about 3 months to discuss your test results. Coding Level of Care Code New Pt Level 4 (06700) Complex visit Add On G2211 Diagnoses PAF (paroxysmal atrial fibrillation) I48.0 Ventricular premature beats I49.3
--- OUTSIDE RECORDS SUMMARY | 2025-05-04 19:04 | XMS_ITS | Encounter Summary ---
Author Organization [employer] Address [address] [place] [address] Care Team Providers Care Gill Box Fixer Name Role Phone Demetria Chaparro Primary Care Provider [phone] Erin Thibodeaux RN Unavailable Unavailable Nessa Gutierrez Unavailable Nessa Gutierrez Unavailable Nessa Gutierrez Unavailable Reason for Visit * Reason Onset Date Comments Results 03/28/2024 Encounter Details Date Type Department Care Team (Late st Contact Info) Description 03/28/2024 Telephone [facility] MEDICINE [address] [place] [address] Demetria Chaparro FNP [address] [place], [place] [phone] Results Social History Tobacco Use Types Packs/Day [...] results: Lab Date when done: 03/27/24 Facility: [facility] Contact pt at [phone] documented in this encounter Plan of Treatment Not on file documented as of this encounter Visit Diagnoses Not on filedocumented in this encounter Additional Health Concerns Assessment Noted Time PHQ-9 Depression Total Score: 9 01/21/20 10:18 AM EDT documented as of this encounter Care Teams Gill Box Fixer Relationship Specialty Start Date End Date Demetria Chaparro FNP [address] [place] [address] PCP - General Family Medicine 02/06/22 Erin Thibodeaux RN [address] [place] [address] Registered Nurse Family Medicine 10/21/24 11/13/24 Nessa Gutierrez 10/21/24 12/19/24 Nessa Gutierrez 12/29/24 12/30/24 Nessa Gutierrez 03/24/25 04/15/25 Britany Childers Investor Relations DirectorRegulatory Process Manager 11/12/24 documented as of this encounter
--- OUTSIDE RECORDS SUMMARY | 2025-05-04 19:04 | XMS_ITS | Clinical Summary ---
Demographics Address [address] [place] [address] Home Phone Preferred Language Kazakh Marital Status Mandaen Affiliation Unknown Race Unknown Ethnic Group or Author Organization [employer] Address [address] [place] [address] Care Team Providers Care Linux Engineer Name Role Phone Unavailable Primary Care [...] Self [address] [place] [address]
--- OUTSIDE RECORDS SUMMARY | 2025-05-04 19:04 | XMS_ITS | Encounter Summary ---
Author Organization [employer] Address [address] [place] [address] Care Team Providers Care Post Closer Name Role Phone Demetria Chaparro MACHINE ROUGH ROUNDER Primary Care Provider [phone] Erin Thibodeaux RN Unavailable Unavailable Nessa Gutierrez Unavailable Nessa Gutierrez Unavailable Nessa Gutierrez Unavailable Encounter Details Date Type Department Care Team (Late st Contact Info) Description 10/12/2023 Orders Only [facility] MED & PEDS [address] [place] [address] Trey Garcia MD [address] [place] [address] Acute cystitis with hematuria (Primary Dx) Social [...] documented as of this encounter Care Teams Post Closer Relationship Specialty Start Date End Date Demetria Chaparro FNP [address] [place] [address] PCP - General Family Medicine 02/06/22 Erin Thibodeaux, REID [address] [place] [address] Registered Nurse Family Medicine 10/21/24 11/13/24 Nessa Gutierrez 10/21/24 12/19/24 Nessa Gutierrez 12/29/24 12/30/24 Nessa Gutierrez 03/24/25 04/15/25 Britany Childers Dairy HusbandmanHot Box Spotter 11/12/24 documented as of this encounter
--- OUTSIDE RECORDS SUMMARY | 2025-05-04 19:04 | XMS_ITS | Encounter Summary ---
Author Organization [employer] Address [address] [place] [address] Care Team Providers Care Lithographic Camera Operator Name Role Phone Demetria Chaparro Primary Care Provider [phone] Nessa Gutierrez Unavailable Reason for Visit * Reason Onset Date Comments new referral 04/07/2025 Encounter Details Date Type Department Care Team ([facility] Contact Info) Description 04/07/2025 Telephone [facility] MEDICINE [address] [place] [address] Demetria Chaparro FNP [address] [place], [place] [phone] new referral Social History Tobacco Use Types [...] for Neurology. [facility] no show no call. PCP SHEAR HELPER Shankar documented in this encounter Plan of Treatment Not on file documented as of this encounter Visit Diagnoses Not on filedocumented in this encounter Additional Health Concerns Assessment Noted Time PHQ-9 Depression Total Score: 11 024 11:19 AM EST documented as of this encounter Care Teams Lithographic Camera Operator Relationship Specialty Start Date End Date Demetria Chaparro FNP [address] [place] [address] PCP - General Family Medicine 02/06/22 Nessa Gutierrez 03/24/25 04/15/25 Britany Childers Epic Radiant AnalystRotoformer Backtender 11/12/24 documented as of this encounter
--- OUTSIDE RECORDS SUMMARY | 2025-05-04 19:04 | XMS_ITS | Clinical Summary ---
Author Organization [facility] Address [address] [place] [phone] Phone Care Team Providers Care Restaurant Hourly Team Member Name Role Phone Physician, No Pcp Primary [...] Depression Screening 06/11/2024 COVID-19 Vaccine (1 - 2024-2 6 season) 2025 Influenza Vaccine (#1) 2025 , [...] RESULTING AGENCY - 12/13/2018 2:35 PM EDT [id number] THINPREP PAP, IMAGED: NEGATIVE FOR SQUAMOUS INTRAEPITHELIAL [...] Z12.4, Z34.81, , LMP 09/11/2018 No [facility] CYTOLOGY ORDERABLES Final Result HISTORICAL TESTING LAB RESULTING AGENCY from Last 3 Months or Most Recently Relevant to Health Maintenance Insurance MEDICAID - [place] Care Teams Restaurant Hourly Team Member Relationship Specialty Start Date End Date Physician, No Pcp PCP - General 04/18/24
--- OUTSIDE RECORDS SUMMARY | 2025-05-04 19:05 | XMS_ITS | Encounter Summary ---
Author Organization [employer] Address [address] [place] [address] Care Team Providers Care Online Media Buyer Name Role Phone Demetria Chaparro Primary Care Provider [phone] Erin Thibodeaux RN Unavailable Unavailable Nessa Gutierrez Unavailable Nessa Gutierrez Unavailable Nessa Gutierrez Unavailable Reason for Visit * Reason Onset Date Comments ER Follow-up 11/06/2023 Encounter Details Date Type Department Care Team ([facility] Contact Info) Description 11/06/2023 Telephone [facility] MED & PEDS [address] [place], [place] [phone] Demetria Chaparro FNP [address] [place], [place] [phone] ER Follow-up Social History Tobacco Use Types [...] 11:38 AM EDT Tc to pt using [employer] Manager [place], [place] [id number], entry level mechanical engineer unable to reach pt, left messagefor pt to call back. * Telephone Encounter - Shelby Perez - 11/06/2023 1:06 PM EDT Patient calling to report ED visit on : Date: 10/26/[address]: [facility] Seen for: abdominal pain and migrans Patient [...] documented as of this encounter Care Teams Online Media Buyer Relationship Specialty Start Date End Date Demetria Chaparro FNP [address] [place] [id number] PCP - General Family Medicine 02/06/22 Erin Thibodeaux, RN [address] [place] [phone] Registered Nurse Family Medicine 10/21/24 11/13/24 Nessa Gutierrez 10/21/24 12/19/24 Nessa Gutierrez 12/29/24 12/30/24 Nessa Gutierrez 03/24/25 04/15/25 Britany Childers Advanced Manufacturing Vice PresidentPricing Coordinator 11/12/24 documented as of this encounter
--- OUTSIDE RECORDS SUMMARY | 2025-05-04 19:05 | XMS_ITS | Encounter Summary ---
Author Organization [employer] Address [address] [place] [address] Care Team Providers Care Extractor Operator Helper Name Role Phone Demetria Chaparro Primary Care Provider [phone] Erin Thibodeaux RN Unavailable Unavailable Nessa Gutierrez Unavailable Nessa Gutierrez Unavailable Nessa Gutierrez Unavailable Reason for Visit * Reason Onset Date Comments Appointment Request 08/28/2022 Encounter Details Date Type Department Care Team (Late st Contact Info) Description 08/28/2022 Telephone [facility] MEDICINE [address] [place] [address] Demetria Chaparro FNP [address] [place], [place] [phone] Appointment Request Social History Tobacco Use Types [...] - 08/28/2022 4:15 PM EDT Tc from [facility] with N requesting a physical appt for pt. Please contact pt at [phone] documented in this encounter Plan of Treatment Not on file documented as of this encounter Visit Diagnoses Not on filedocumented in this encounter Additional Health Concerns Assessment Noted Time PHQ-9 Depression Total Score: 0 07/04/19 23 11:01 AM EST documented as of this encounter Care Teams Extractor Operator Helper Relationship Specialty Start Date End Date Demetria Chaparro FNP [address] [place] [address] PCP - General Family Medicine 02/06/22 Erin Thibodeaux RN [address] [place] [address] Registered Nurse Family Medicine 10/21/24 11/13/24 Nessa Gutierrez 10/21/24 12/19/24 Nessa Gutierrez 12/29/24 12/30/24 Nessa Gutierrez 03/24/25 04/15/25 Britany Childers Shake FeederIntake Worker 11/12/24 documented as of this encounter
--- OUTSIDE RECORDS SUMMARY | 2025-05-04 19:05 | XMS_ITS | Clinical Summary ---
Author Organization [employer] Address [address] [place] [address] Care Team Providers Care Maintenance Person Name Role Phone Shankar Demetria SANDRA Primary Care Provider [phone] Allergies Active Allergy Reactions Criticality Noted Date [...] order (will not trigger notification to Pharmacy)) Active Problems Problem Noted Date Diagnosed Date Atrial fibrillation 06/27/2024 Overview (06/27/2024): 06/14/24: [facility] ED eval for palpitations, found to be in afib with RVR on arrival. Cardioverted and resolved. [facility] Dr. Walker Consult 06/19/24: plan for [...] Plan (01/21/2024 5:33 PM EDT): Followed by [facility] - Dr. Walker Continues metoprolol 25mg BID and verapamil 40mg nightly Reports well controlled while taking medications Gastritis 10/09/2023 Overview (01/21/2024): Followed by [facility] Continues on lansoprazole 30mg daily Assessment & Plan (01/21/2024 5:25 PM EDT): Plan for EGD for further eval Umbilical hernia 10/09/2023 Overview (01/21/2024): Repaired by [facility] Surgeons - Dr. Woo 07/23/23 Umbilical hernia repair with mesh Migraine without aura 05/31/2023 Overview (04/21/2024): Previously following with [facility] - Dr. Navarro Continues depakote 250mg nightly and sumatriptan PRN Previous med trials: topiramate. Did not experience therapeutic effect Assessment & Plan (04/21/2024 8:53 PM EST): -Referral to [facility] Neuro sent 04/21/24 Assessment & Plan (05/31/2023 9:57 AM EST): -Referral updated 05/31/23 Cobalamin deficiency 07/04/2022 Overview (01/21/2024): Continues on cyanocobalamin 1000 mcg capsule daily Re-check vit D level Gastroesophageal reflux disease without esophagi tis 07/04/2022 Overview (08/14/2024): Continues following with [facility] GI - MONSTER Chang Cont Lansoprazole Assessment [...] depressive disorder 07/04/2022 Overview (10/15/2022): Following with [facility] - weekly sessions with therapist, monthly [...] Vit D, Vit B12 - Established with [facility] Heme/Onc Jun 2024 [...] NIL/HPV neg, GC/Chlamydia/trichomonas neg 05/2021. -Referred to [facility] Jan 2022 Hyperplasia of endometrium determined by biopsy Assessment & Plan (01/21/2024 5:14 PM EDT): EMB 12/19/[address] Kayla Vaughn at [facility] Impression: secretory endometrium Assessment & Plan (10/15/2022 10:40 AM EDT): EMB December 2021 through [facility] Requested notes of latest [facility] visit, referral for follow up if needed Resolved Problems Problem Noted Date Diagnosed Date Resolved Date History of Helicobacter pylori infection 01/21/2024 09/14/2024 Assessment & Plan (01/21/2024 5:16 PM EDT): Tx by [facility] Chang. Unable to tolerate quadruple therapy. Initiated on Levaquin and amoxicillin Jun 2023. Acute chest wall pain 10/09/20232023 Anxiety attack 10/09/2023 01/21/2024 Asthma 10/09/2023 01/21/2024 Cerebrovascular accident ([facility] 10/09/2023 01/21/2024 Class 1 obesity 10/09/2023 01/21/2024 [...] savi to inadequate dietary iron intake 06/04/2019 4 Encounters Date Type Department Care Team Description 04/15/2025 Patient Outreach [facility] [address] [place] [address] Demetria Chaparro FNP Care Coordination ([facility] ED Follow Up) 04/07/2025 Telephone [facility] [address] [place] [phone] Demetria Chaparro FNP new referral 04/07/2025 Refill [facility] [address] [place] [address] Demetria Chaparro FNP 03/30/2025 Refill [facility] [address] [place] [address] Demetria Chaparro FNP Microcytic anemia; Gastroesophageal reflux disease, unspecified whether esophagitis present 03/24/2025 Patient Outreach [facility] [address] [place] [address] Demetria Chaparro FNP Care Coordination (CP Chart Review) 03/24/2025 Patient Outreach [facility] [address] [place] [address] Demetria Chaparro FNP Care Coordination ([facility] ED F/U) 03/24/2025 Patient Outreach [facility] [address] [place] [address] Demetria Chaparro FNP 03/19/2025 Refill [facility] [address] [place] [address] Demetria Chaparro FNP Migraine without aura and without status migrainosus, not intractable 03/09/2025 Telephone [facility] [address] [place] [address] Nutrition referral 02/28/2025 Orders Only GENERIC EXTERNAL DATA DEPARTMENT Provider, Generic External Data 02/02/2025 11:00 AM EDT Office Visit [facility] [address] [place] [address] Demetria Chaparro FNP Less than 8 weeks gestation of (Primary Dx); Dermatitis; Gastroesophageal reflux disease, unspecified whether esophagitis present; Microcytic anemia; Morning sickness 02/02/2025 Travel from Last 3 Months Immunizations Immunization Administration [...] Dental Prophylaxis 1988 Dental X-Ray: Bitewings 1988 Alcohol/Substance Use Screening 2000 Family Planning (PISQ) 02/19/2003 HPV Vaccines (1 [...] 2025 , 04/08/2019, 04/30/2013, Additional history exists SDOH Screening 04/21/2025 04/21/2024 Disability Screening 01/29/2026 01/29/2025 Tobacco Screening 02/02/2026 02/02/2025 Cervical Cancer Screening 05/22/2026 HPV/Cotest 05/22/2026 05/22/2021 Dental X-Ray: Full Mouth 06/28/2026 024, 05/25/2021, 11/04/2020 Lipid Panel 01/23/2029 01/24/2024, 10/02/2022 DTaP/Tdap/Td Vaccines [...] 11:36 AM EDT HEPATIC FUNCTION PANEL Routine 02/28/2025 11:36 AM EDT COVID-19 ID NOW (MINER) Routine 02/28/2025 11:36 AM EDT CBC WITH AUTO DIFFERENTIAL Routine 02/28/2025 11:36 AM EDT INFLUENZA A B2 ID NOW (MINER) Routine 02/28/2025 11:36 AM EDT HEPATITIS C VIRAL RNA, QUANTITATIVE, REAL-TIME [...] Results * Influenza A B2 ID NOW (SYLLETA) (02/28/2025 11:36 AM EDT) IDNOW SERIAL# [id number] [facility] Influenza A Negative Negative [facility] Influenza B2 Negative Negative [facility] Influenza A B2 Note See Note [facility] Comment:The Miner ID NOW In [...] LAB MICROBIOLOGY - GENERAL ORDERABLES Final Result [facility] [address] [place] [phone] * COVID-19 ID NOW (MINER) (02/28/2025 11:36 AM EDT) IDNOW SERIAL# [id number] [facility] COVID-19 TEST Negative Negative [facility] COVID-19 NOTE See Note [facility] Comment: Results are for the identification of SARS-CoV2 RNA. TheSARS-CoV2 RNA is generally detectable in respiratory samplesduring the acute phase of infection. Positive results areindicative of the presence of SARS-CoV-2 RNA; clinicalcorrelation with patient history and other diagnosticinformation is necessary to determine patient infectionstatus. Positive results do not rule out bacterial infectionor co- infection with other viruses.Testing facilities within the [facility] and itsterritories are required to report all [...] use by authorized laboratories.Testing performed on the [employer] NOW utilizing NAAT. 02/28/2025 11:3 6 AM EDT 02/28/2025 11:42 AM EDT us Generic External Data Provider LAB MOLECULAR DEISI GNOSTICS ORDERABLES Final Result [facility] [address] [place] [phone] * (ABNORMAL) CBC auto differential (02/28/2025 11:36 AM EDT) White Blood Count 6.4 4.8 - 10.8 X10*3/uL [facility] Red Blood Count 4.61 4.20 - 5.50 X10*6/uL [facility] Hemoglobin 12.1 12.0 - 16.0 g/dl [facility] Hematocrit 35.8(L) 37.0 - 47.0 % [facility] Mean Corpuscular Volume 77.7(L) 80.0 - 98.0 fL [facility] Mean Corpuscular Hemoglobin 26.2(L) 27.0 - 33.0 pg [facility] Mean Corpuscular HGB Conc 33.8 31.0 - 35.0 g/dl [facility] Red Cell Distribution Width 16.2(H) 11.0 - 16.0 % [facility] Platelet Count 322 160 - 400 X10*3/uL [facility] Mean Platelet Volume 9.5 9.4 - 12.3 fL [facility] Neutrophils Percent Auto 64.6 45 - 73 % [facility] Imm Gran Pct Auto 0.3 0.0 - 0.4 % [facility] Lymphocytes Percent Auto 27.3 20 - 40 % [facility] Monocytes Percent Auto 6.1 2 - 11 % [facility] Eosinophils Percent Auto 1.1 0 - 4 % [facility] Basophils Percent Auto 0.6 0 - 2 % [facility] NRBC Pct Auto 0.0 0.0 - 0.2 /100WBC [facility] Neutrophils Absolute Auto 4.2 2.0 - 8.3 x10*3/uL [facility] Imm Gran Abs Auto 0.02 0.00 - 0.03 X10*3/uL [facility] Lymphocytes Absolute Auto 1.8 1.2 - 4.9 X10*3/uL [facility] Monocytes Absolute Auto 0.4 0.1 - 1.2 X10*3/uL [facility] Eosinophils Absolute Auto 0.1 0.0 - 0.4 X10*3/uL [facility] Basophils Absolute Auto 0.0 0.0 - 0.2 X10*3/uL [facility] NRBC Abs Auto 0.000 0.0 - 0.012 X10*3/uL [facility] 02/28/2025 11:3 6 AM EDT 02/28/2025 11:42 AM EDT Generic External Data Provider LAB BLOOD ORDERAB LES Final Result Performing Organization Address [facility] Co de Phone Number [facility] [address] [place] [phone] * hCG, Total, Quantitative (02/28/2025 11:36 AM EDT) HCG Quantitative 121,203 mIU/mL [facility] Comment:Verified by dilution Weeks post LMP Approximate hCG(Last Menstrual Period) Range (mIU/ml)3 - 4 weeks 9 - 1304 - 5 weeks 75 - 2,6005 - 6 weeks 850 - 20,8006 - 7 weeks 4000 - 100,2007 - 12 weeks 11,500 - 289,56005 - 16 weeks 18,300 - 137,75545 - 29 weeks (2nd trimester) 1,400 - 53,52356 - 41 weeks (3rd trimester) 940 - [...] ORDERAB LES Final Result Performing Organization Address [facility] Co de Phone Number [facility] [address] [place] [phone] * Magnesium (02/28/2025 11:36 AM EDT) Magnesium 2.0 1.6 - 2.6 mg/dL [facility] 02/28/2025 11:3 6 AM EDT 02/28/2025 11:42 AM EDT us Generic External Data Provider LAB BLOOD ORDERAB LES Final Result Performing Organization Address [facility] Co de Phone Number [facility] [address] [place] [phone] * Hepatic Function Panel (02/28/2025 11:36 AM EDT) Pathologist [facility] Bilirubin, Total 0.4 0.0 - 1.0 mg/dL [facility] Bilirubin, Direct 0.2 0.0 - 0.5 mg/dL [facility] Aspartate Amino Transferase 22 5 - 31 U/L [facility] Alanine Aminotransferase 17 0 - 31 U/L [facility] Total Protein 7.1 6.5 - 8.0 g/dL [facility] Albumin Level 4.3 3.5 - 5.0 g/dL [facility] Alkaline Phosphatase 56 39 - 117 U/L [facility] 02/28/2025 11:3 6 AM EDT 02/28/2025 11:42 AM EDT us Generic External Data Provider LAB BLOOD ORDERAB LES Final Result Performing Organization Address [facility] Co de Phone Number [facility] [address] [place] [phone] * (ABNORMAL) Basic Metabolic Panel (02/28/2025 11:36 AM EDT) Pathologist [facility] Sodium 136 135 - 145 mmol/L [facility] Potassium 3.5 3.3 - 5.1 mmol/L [facility] Chloride 110(H) 96 - 108 mmol/L [facility] Carbon Dioxide 19(L) 22 - 29 mmol/L [facility] Anion Gap 11(L) 12 - 20 [facility] Urea Nitrogen (BUN) 6(L) 9 - 16 mg/dL [facility] Creatinine, Serum 0.69 0.5 - 1.4 mg/dL [facility] Creatinine Clr Calc Pharmacy 110.9 [facility] Comment:Provided height and weight: 160.02 cm,78.8 kg.eGFR (calculated from the MDRD study equation) and eCrCl(calculated from the Cockcroft-Gault equation) are based ondifferent parameters and may not yield comparable results.If eCrCl result is absurd, please check patient'sheight/weight. Estimated Glomerular Filt Rate >60 [facility] Comment:Chronic Kidney Disea se: Estimated GFR < 60 mL/min/1.29e2Vtqhww Kidney Disease: Estimated GFR < 15 mL/min/1.73m2 Glucose 126(H) 60 - 115 mg/dL [facility] Calcium 9.5 8.4 - 10.2 mg/dL [facility] 02/28/2025 11:3 6 AM EDT 02/28/2025 11:42 AM EDT us Generic External Data Provider LAB BLOOD ORDERAB LES Final Result Performing Organization Address [facility] Co de Phone Number [facility] [address] [place] [address] [phone] * Hepatitis C Viral RNA, Quantitative, Real-Time PCR (01/24/2024 11:05 AM EDT) Hepatitis C Viral Load <15 NOT DETECTED NOT DETECTED IU/mL [facility] HCV Log PCR <1.18 NOT DETECTED NOT DETECTED Log IU/mL [facility] Comment:For additional infor matkeyana, please refer tohttp://education.[employer]/faq/CMI61q0(This link is being provided for informational/educational purposes only.)THIS TEST WAS PERFORMED AT:[facility] [place] [phone] WOODS MD Blood 01/24/2024 11:0 5 AM EDT 01/24/2024 2:06 PM EDT us Demetria Chaparro [employer] LAB BLOOD ORDERABLES Final Res ult Performing Organization Address [facility]/ZIP Co de Phone Number [facility] [address] [place] [address] [phone] * HIV-1/2 Antigen and Antibodies, Fourth Generation, with Reflexes (01/24/2024 11:05 AM EDT) HIV AB/AG Nonreactive Nonreactive [facility] Comment:HIV-1 p24 Ag and/or HIV-1/HIV-2 Ab not detected.A test result that is nonreactive does not exclude thepossibility of exposure to or infection with HIV-1 and/orHIV-2. Nonreactive results in this assay for individualswith prior exposure to HIV-1 and/or HIV-2 may be due toantigen and antibody levels that are below the limit ofdetection of this assay.The [employer] HIV Ag/Ab Combo assay result andsupplemental assay results should be interpreted inconjunction with the patient's clinical presentation,history and other laboratory results. If the results areinconsistent with clinical evidence, additional testing issuggested to confirm the result. Blood Venous blood specimen / Unknown 01/24/2024 11:05 AM EDT 01/24/2024 2:04 PM EDT us Demetria Chaparro [employer] LAB BLOOD ORDERABLES Final Res ult [facility] [address] [place] [phone] * (ABNORMAL) Lipid Panel, Standard (01/24/2024 11:05 AM EDT) Triglycerides 192(H) <150 mg/dL [facility] Comment:Desirable Triglyceri de: less than 150 mg/dLBorderline High Triglyceride 150-199 mg/dLHigh Triglyceride: 200-499 mg/dLVery High Triglyceride: greater than or equal to 5OO mg/dL Cholesterol 229(H) <200 mg/dL [facility] Comment:Desirable Cholestero l: less than 200 mg/dLBorderline High Cholesterol: 200-239 mg/dLHigh Cholesterol: greater than 239 mg/dL LDL Cholesterol Calculated 141(H) <100 mg/dL [facility] Comment:Desirable LDL: less than 100 [...] 11:05 AM EDT 01/24/2024 2:06 PM EDT Demetria Chaparro [employer] LAB BLOOD ORDERABLES Final Res ult Performing Organization Address City/[facility]/ZIP Co de Phone Number [facility] [address] [place] [phone] * Pap Smear (05/26/2021 12:00 AM EST) Swab Soniya Garcia [facility] CYTOLOGY ORDERABLES F inal Result Performing Organization Address City/[facility]/ZIP Co de Phone Number [address], [place] [address] * THINPREP TIS PAP AND HPV mRNA E6/E7, CT/NG, TRICH (05/22/2021 7:14 PM EST) Chlamydia trachomatis RNA, TMA, Urogenital NOT DETECTED NOT DETECTED [facility] Clinical Information: None given [facility] COMMENT SEE COMMENT [facility] Comment: The analytical performance characteristics of this assay, when used to test SurePath(TM) specimens have been determined by [employer]. The modifications have not been cleared or approved by the FDA. This assay has been validated pursuant to the CLIA regulations and is used for clinical purposes. For additional information, please refer to https://education.[employer]/faq/JKC247 (This link is being provided for information/ [...] was manually screened according to routine procedures. General Dentist/Owner: SEE COMMENT [facility] Comment: MAA, CT(ASCP) CT screening location: [place] [address] HPV nRNA E6/E7 Not Detected Not Detected [facility] Comment: Methodology: Mri Technologist-Mediated Amplification This assay detects E6/E7 viral messenger RNA (mRNA) from 14 high-risk HPV types (16,18,31,33,35,39,45,51,52,56,58,59,66,68). The analytical performance characteristics of this assay have been determined by [employer]. The modifications have not been cleared or approved by the FDA. This assay has been validated pursuant to the CLIA regulations and is used for clinical purposes. For additional information, please refer to http://education.[employer]/faq/ZUL370d2 (This link if provided for information/ educational purposes only.) Interpretation/Re sult: Unable to provide interpretation due to unsatisfactory specimen adequacy. [facility] LMP: NONE GIVEN [facility] Neisseria gonorrhoeae RNA, TMA, Urogenital NOT DETECTED NOT DETECTED [facility] Prev. BX: NONE GIVEN [facility] Prev. PAP: NONE [facility]IV[facility] Review General Dentist/Owner: SEE COMMENT [facility] Comment: GSG, CT(ASCP) CT screening location: [place] [address] SOURCE: None given [facility] Statement Of Adequacy: SEE COMMENT [facility] Comment: Specimen processed and examined, but unsatisfactory for evaluation due to an insufficient number of squamous cells. Partially obscuring blood Trichomonas vaginalis, QL, TMA, PAP Vial NOT DETECTED NOT DETECTED [facility] Comment: The analytical performance characteristics of this assay have been determined by [employer]. The modifications have not been cleared or approved by the FDA. This assay has been validated pursuant to the CLIA regulations and is used for clinical purposes. For additional information, please refer to http://education.[employer].Harry [employer] David/ faq/Trichomonastma (This link is being provided for information/ educational purposes only.) NO COLLECTION DATE RECEIVED. WE HAVE USED THE DATE THE SPECIMEN WAS RECEIVED BY THIS LABORATORY THE COLLECTION DATE. IF THIS IS INCORRECT, PLEASE CONTACT CLIENT SERVICES. PHONE NUMBER: 05/22/2021 7:14 PM EST us Tiff Galdamez NP LAB PATHOLOGY ORDERABLES Final Result [facility] [address] from Last 3 Months or Most Recently Relevant to Health Maintenance Insurance [facility] C3 DENTAL-[facility] MEDICAID STAND ADULT Care Teams Maintenance Person Relationship Specialty Start Date End Date Demetria Chaparro FNP [address] [place] [phone] PCP - General Family Medicine 02/06/22 Britany Childers Trade Mark ExaminerPatient Safety Tech 11/12/24
--- OUTSIDE RECORDS SUMMARY | 2025-05-04 19:05 | XMS_ITS | Encounter Summary ---
Author Organization [employer] Address [address] [place] [address] Care Team Providers Care Chief Deputy Name Role Phone Demetria Chaparro Primary Care Provider [phone] Nessa Gutierrez Unavailable Nessa Gutierrez Unavailable Nessa Gutierrez Unavailable Reason for Visit * Reason Onset Date Comments Nurse Triage 12/08/2024 Encounter Details Date Type Department Care Team (Late st Contact Info) Description 12/08/2024 Telephone [facility] [address] [place] [address] Demetria Chaparro FNP [address] [place], [place] [phone] Nurse Triage Social History Tobacco Use Types [...] advised to come to be seen in [facility] today open till 8pm. No apts available in [facility] today or tomorrow. Insurance is verified [...] documented as of this encounter Care Teams Chief Deputy Relationship Specialty Start Date End Date Demetria Chaparro FNP [address] [place] [phone] PCP - General Family Medicine 02/06/22 Nessa Gutierrez 10/21/24 12/19/24 Nessa Gutierrez 12/29/24 12/30/24 Nessa Gutierrez 03/24/25 04/15/25 Britany Childers Event AttendantCorporate Trainer 11/12/24 documented as of this encounter
--- OUTSIDE RECORDS SUMMARY | 2025-05-04 19:05 | XMS_ITS | Encounter Summary ---
Author Organization [employer] Address [address] [place] [address] Care Team Providers Care Bandsaw Operator Name Role Phone Demetria Chaparro Primary Care Provider [phone] Erin Thibodeaux RN Unavailable Unavailable Nessa Gutierrez Unavailable Nessa Gutierrez Unavailable Nessa Gutierrez Unavailable Reason for Visit * Reason Onset Date Comments Nurse Triage 09/05/2023 Encounter Details Date Type Department Care Team (Late st Contact Info) Description 09/05/2023 Telephone [facility] [address] [place] [address] Demetria Chaparro FNP [address] [place], [place] [phone] Nurse Triage Social History Tobacco Use Types [...] PM EDT Triage call attempted x2 with [employer] [place] [id number] Pt didn't answer. Left voice message to call [facility] [phone] * Telephone Encounter - Shelby Perez - [...] documented as of this encounter Care Teams Bandsaw Operator Relationship Specialty Start Date End Date Demetria Chaparro FNP [address] [place] [phone] PCP - General Family Medicine 02/06/22 Erin Thibodeaux RN [address] [place] [phone] Registered Nurse Family Medicine 10/21/24 11/13/24 Nessa Gutierrez 10/21/24 12/19/24 Nessa Gutierrez 12/29/24 12/30/24 Nessa Gutierrez 03/24/25 04/15/25 Britany Childers Business AsstCampaign Specialist 11/12/24 documented as of this encounter
== END 2025-05-04 14:43 | disposition home or self-care (01) ==
LOC: HO.HCS 14:05
PROVIDERS: PCP Physician Assistant; Visit Provider Internal Medicine
DX: I48.0 Paroxysmal atrial fibrillation (principal); I49.3 Ventricular premature depolarization
CPT/HCPCS: 99204

== ENCOUNTER → 2025-05-04 14:05 | Outpatient (BNVA) | payer MEDICAID, SELFPAY | PROVIDERS: PCP Physician Assistant; Visit Provider Internal Medicine | DX: I48.0 Paroxysmal atrial fibrillation (principal); I49.3 Ventricular premature depolarization | CPT/HCPCS: 99202 ==

== ENCOUNTER 2025-05-25 09:44 | Emergency (ER) | payer MEDICAID, SELFPAY ==
--- NOTE | ~2025-05-25 | XR_ITS ---
EXAMINATION: XR CHEST CLINICAL INFORMATION: chest pain COMPARISON: Previous chest x-ray December 2024 TECHNIQUE: 2 views of the chest were obtained. FINDINGS: No significant abnormality is noted involving the heart, lungs, mediastinum, bony thorax or soft tissues. XR/XR chest 2V IMPRESSION: Unremarkable examination. Electronically signed by: Kathy Saez MD 05/25/2025 10:47 AM [facility]
--- NOTE | 2025-05-25 09:46 | ECG_ITS ---
Test Reason : chest pain Blood Pressure : */* mmHG Vent. Rate : 83 BPM Atrial Rate : 83 BPM P-R Int : 110 ms QRS Dur : 86 ms QT Int : 378 ms P-R-T Axes : 62 38 18 degrees QTcB Int : 444 ms Poor data quality, interpretation may be adversely affected Sinus rhythm with marked sinus arrhythmia with short MS Otherwise normal ECG When compared with ECG of 28-Dec-2024 22:16, Nonspecific T wave abnormality no longer evident in Anterolateral leads Referred By: Generic ED Physician Electronically Signed By: Shahzad Coleman
[2025-05-25 10:28] VITALS: BP 105/71; PULSE 84; RESP 18; TEMP 36.6; O2SAT 99; BMI 29.2
--- NOTE | 2025-05-25 10:28 | ED_ITS ---
HPI - General Adult General Chief complaint: Chest Pain Stated complaint: cp Time Seen by Provider: 05/25/25 11:53 Source: patient and old records reviewed Mode of arrival: ambulatory Limitations: no limitations History of Present Illness ED Provider: SCHUYLER BOWEN narrative: [age] year female with past medical history of PVCs, PAFs, anemia, and chest pain, she is 20 weeks she is followed at [facility] she notes she is having no OB related concerns. She has had 1 week of left-sided reproducible chest pain. Denies any preceding travel, procedures, viral infections. She does have a mild runny nose. She states her son is also having chest pain. He suffers from that as well. She has a recent trauma to the chest. She states she has had no leakage of fluid, vaginal bleeding, abdominal pain. She did not let her OBGYN no. She did wait at [facility] ER a few days ago for 4 hours but no longer tolerate the weight. MD complaint: chest pain Onset (ago): day(s) (7) Location: chest Radiation: non-radiation Severity: moderate Quality: aching Pain Consistency: intermittent Relieving factors: none Exacerbating factors: movement Associated symptoms: denies other symptoms Treatments prior to arrival: none Related Data Home Medications ?Medication ?Instructions ?Recorded ?Confirmed albuterol sulfate 90 mcg/actuation 1 puff PO Q4-6H PRN Shortness Of 07/20/21 05/04/25 aerosol inhaler (ProAir HFA) Breath Or Wheezing ergocalciferol (vitamin D2) 1,250 1,250 mcg PO QWEEK 0 09/12/24 05/04/25 mcg (50,000 unit) capsule (Vitamin D2) sennosides 8.6 mg tablet (senna) 17.2 mg PO BEDTIME IN N Constipation 09/12/24 05/04/25 doxylamine succinate 25 mg tablet 25 mg PO BEDTIME PRN 04/08/25 05/04/25 (Unisom (doxylamine)) famotidine 20 mg tablet 20 mg PO BEDTIME 04/08/25 metoclopramide HCl 5 mg tablet 5 mg PO QIDACHS 5 05/04/25 (Reglan) pyridoxine (vitamin B6) 25 mg 25 mg PO TID 04/08/25 tablet Previous Rx's ?Medication ?Instructions ?Recorded acetaminophen 500 mg tablet 1,000 mg (2 x 500 mg) PO Q 6H PRN 12/31/24 (Tylenol Extra Strength) fever or pain #20 tabs ondansetron 4 mg disintegrating 4 mg PO Q6-8H PRN naus ea and 12/31/24 tablet vomiting #14 tabs sucralfate 1 gram tablet 1 g PO BID #60 tabs 04/08/25 Allergies Allergy/AdvReac Type Severity Reaction Status Date / Time ibuprofen Allergy Mild Gastrointestinal Verified 05/25/25 10:29 Upset Iodinated Contrast Media Allergy Swelling Verified 05/25/25 10:29 shellfish derived Allergy Unknown Verified 05/25/25 10:29 Review of Systems 2 Review of Systems: Yes all other systems are reviewed and are negative FORMERLY [facility], [facility]–1983 Past Medical History Attestation statement: The following information was validated with the patient. Source: old records reviewed Medical History Helicobacter pylori (H. pylori) History of cardioversion GERD (gastroesophageal reflux disease) Obesity Depression PAF (paroxysmal atrial fibrillation) Palpitations COVID Migraine Panic attack Anxiety Asthma Surgical History History of esophagogastroduodenoscopy (EGD) H/O umbilical hernia repair (07/23/23) H/O dilation and curettage Family History Family History Maternal Grandfather Skin cancer Paternal Grandmother Colon cancer Social History Social History Household Members: Children Housing: Apartment Are you a primary progressive care nurse to a significant other at home: No Do you presently have visiting nurse or other home services: No Alcohol intake: never Comment: counts correct Patient Tobacco Use Status: Former Tobacco user Tobacco use type: Cigarette Years Smoked: 15 Advance Directives: No Advance Directives Information Provided: No service: No Current occupational status: unemployed Gender identity: Female Physical Exam ED Vital Signs: Vital Signs - 24 hr 05/25/25 10:28 05/25/25 12:07 Temperature 98 F 97.6 F Pulse Rate 84 80 Respiratory Rate 18 18 Blood Pressure 105/71 107/69 Pulse Oximetry 99 100 Oxygen Delivery Method Room Air Room Air BMI result Body Mass Index 29.2 Appearance: Alert. Oriented X3. No acute distress. Eyes: Pupils equal, round and reactive to light. ENT: Pharynx normal. Neck: Normal inspection. Neck supple. CVS: Normal heart rate and rhythm. Pulses normal. Chest: Reproducible chest wall pain palpation to the chest reproduces her symptoms Respiratory: No respiratory distress. Breath sounds normal. Abdomen: Soft and nontender. Skin: Skin warm and dry. Normal skin color. Normal skin turgor. Extremities: No lower extremity edema. No calf ttp Neuro: Oriented X 3. No motor deficit. No sensory deficit. CN2-12 intact Course Course Course Narrative: Rapid medical examination performed in triage by Elaine Pruett PA-C: Patient is a 35 year old assigned female at presenting to the emergency department with chest pain and congestion. Detailed physical exam and review of systems are deferred to the marketing database consultant. EKG, labs, imaging, swabs ordered. Patient placed back in the waiting room pending room availability and results. Reevaluation(s) Reevaluation #1: heart tones are 159 Medical Decision Making Medical Decision Making [facility] Narrative: 35-year-old female with past medical history of chest pains she has been seen at [facility] before with negative workup. She is 20 weeks but denies any crude oil treater concerns she has no abdominal pain, vaginal bleeding, leakage of fluid. She reports reproducible left-sided chest pain. She has had the symptoms for 1 week. At this time her symptoms are markedly reproducible I do suspect this is musculoskeletal but given her and a gym going to obtain EKG, troponin, BNP, D-dimer. I will also obtain viral panel. She has no symptoms to suggest dissection, pericarditis. She is overall well-appearing. Differential Diagnosis Differential Diagnoses: The differential diagnosis associated with the presentation includes Chest wall pain, low probability of PE, atypical ACS though very low suspicion. I do not think this is the coronary dissection given 1 week of symptoms normal troponins and normal EKG. Admission/Observation Consideration of admission/observation: Escalation of care including admission/observation considered Workup negative stable for DC Lab Data [facility] Lab Attestation statement: I reviewed the patient's lab results. Troponin, D-dimer, BNP negative Hemoglobin at baseline 05/25/25 10:46 05/25/25 10:46 Labs: Lab Results 05/25/25 05/25/25 05/25/25 Range/Units 10:46 10:47 12:12 WBC 9.9 (4.8-10.8) X10*3/uL RBC 4.48 (4.20-5.50) X10*6/uL Hgb 11.5 L (12.0-16.0) g/dl Hct 35.4 L (37.0-47.0) % MCV 79.0 L (80.0-98.0) fL MCH 25.7 L (27.0-33.0) pg MCHC 32.5 (31.0-35.0) g/dl RDW 14.8 (11.0-16.0) % Plt Count 374 (160-400) X10*3/uL MPV 10.1 (9.4-12.3) fL Immature Gran % (Auto) 0.6 H (0.0-0.4) % Neut % (Auto) 76.7 H (45-73) % Lymph % (Auto) 17.0 L (20-40) % Antelope % (Auto) 4.6 (2-11) % Eos % (Auto) 0.8 (0-4) % Baso % (Auto) 0.3 (0-2) % Lymph # (Auto) 1.7 (1.2-4.9) X10*3/uL Antelope # (Auto) 0.5 (0.1-1.2) X10*3/uL Eos # (Auto) 0.1 (0.0-0.4) X10*3/uL Baso # (Auto) 0.0 (0.0-0.2) X10*3/uL Abs Immat Gran (auto) 0.06 H (0.00-0.03) X10*3/uL Absolute Neuts (auto) 7.6 (2.0-8.3) x10*3/uL Absolute Nucleated RBC 0.000 (0.0-0.012) X10*3/uL Nucleated RBC % (auto) 0.0 (0.0-0.2) /100WBC D-Dimer High Sensitivty 198 NG/ML Sodium 138 (135-145) mmol/L Potassium 3.6 (3.3-5.1) mmol/L Chloride 110 H (96-108) mmol/L Carbon Dioxide 22 (22-29) mmol/L Anion Gap 10 L (12-20) BUN 5 L (9-16) mg/dL Creatinine 0.57 (0.5-1.4) mg/dL Estim Creat Clear Calc 130.9 Estimated GFR > 60 Random Glucose 80 (60-115) mg/dL Calcium 9.3 D (8.4-10.2) mg/dL Magnesium 1.8 (1.6-2.6) mg/dL Total Bilirubin 0.3 (0.0-1.0) mg/dL AST 16 (5-31) U/L ALT < 6 (0-31) U/L Alkaline Phosphatase 79 (39-117) U/L Troponin I High Sens < 2.7 (<3.5-17.0) ng/L NT-Pro-B Natriuret Pep 52.0 (<300) pg/mL Total Protein 6.5 (6.5-8.0) g/dL Albumin 3.6 (3.5-5.0) g/dL Influenza Type A (PCR) NEGATIVE (Negative) Influenza Type B (PCR) NEGATIVE (Negative) RSV RNA Qual (PCR) NEGATIVE (Negative) SARS-CoV-2 RNA (RT-PCR) NEGATIVE (Negative) Independent Interpretation I performed an independent interpretation of an: EKG and Plain X-Ray ( normal) Interpretation: Rate: 853 Rhythm: NSR [place]: normal Normal P waves. Normal [place]. Normal QRS complex. ST T wave : inverted t wave III, no THAI qTC: 444 prior studies: no acute ischemia The study has been interpreted contemporaneously by me. . Radiology Impression Discussion of test interpretation with radiology: I have reviewed the radiologist's reading. Independent Historian Clinical information obtained from an independent historian. History obtained from or confirmed by: Other External Record Review External record reviewed: Outpatient record and Prior outpatient labs Discharge Plan Discharge Clinical Impression: Atypical chest pain Patient Disposition: Home, Self-Care Instructions: Chest Pain (ED) Additional Instructions: Your blood count today was 11.5 Your heart tests and congestive heart failure tests were normal, he also had a test for blood clot the lungs that was negative Your electrocardiogram and chest x-ray were normal Your tested negative for COVID, flu, RSV, influenza Please call your OBGYN today he needs to let them know about your symptoms, Return for any worsening symptoms or concerns Prescriptions: No Action albuterol sulfate [ProAir HFA] 90 mcg/actuation HFA aerosol inhaler 1 puff PO Q4-6H PRN (Reason: Shortness Of Breath Or Wheezing) sennosides [senna] 8.6 mg Tablet 17.2 mg PO BEDTIME PRN (Reason: Constipation) ergocalciferol (vitamin D2) [Vitamin D2] 1,250 mcg (50,000 unit) Capsule 1,250 mcg PO QWEEK acetaminophen [Tylenol Extra Strength] 500 mg tablet 1,000 mg PO Q6H PRN (Reason: fever or pain) Qty: 20 0RF ondansetron 4 mg tablet,disintegrating 4 mg PO Q6-8H PRN (Reason: nausea and vomiting) Qty: 14 0RF famotidine 20 mg tablet 20 mg PO BEDTIME pyridoxine (vitamin B6) 25 mg tablet 25 mg PO TID metoclopramide HCl [Reglan] 5 mg tablet 5 mg PO QIDACHS Unisom (doxylamine) 25 mg tablet 25 mg PO BEDTIME PRN sucralfate 1 gram tablet 1 g PO BID Qty: 60 3RF Discharge Date/Time: 05/25/25 13:00 Print Language: Montenegrin
[2025-05-25 10:56] LABS: MANUAL DIFF FLAG NO
[2025-05-25 10:58] LABS: Hematocrit 35.4 % (37.0-47.0); Hemoglobin 11.5 g/dl (12.0-16.0); Imm Gran Abs Auto 0.06 X10*3/uL (0.00-0.03); Imm Gran Pct Auto 0.6 % (0.0-0.4); Lymphocytes Absolute Auto 1.7 X10*3/uL (1.2-4.9); Mean Corpuscular HGB Conc 32.5 g/dl (31.0-35.0); Mean Corpuscular Hemoglobin 25.7 pg (27.0-33.0); Mean Corpuscular Volume 79.0 fL (80.0-98.0); NRBC Abs Auto 0.000 X10*3/uL (0.0-0.012); NRBC Pct Auto 0.0 /100WBC (0.0-0.2); Platelet Count 374 X10*3/uL (160-400); Red Blood Count 4.48 X10*6/uL (4.20-5.50); White Blood Count 9.9 X10*3/uL (4.8-10.8)
[2025-05-25 11:14] LABS: Alanine Aminotransferase < 6 U/L (0-31); Albumin Level 3.6 g/dL (3.5-5.0); Alkaline Phosphatase 79 U/L (39-117); Anion Gap 10 (12-20); Aspartate Amino Transferase 16 U/L (5-31); Blood Urea Nitrogen 5 mg/dL (9-16); Calcium 9.3 mg/dL (8.4-10.2); Carbon Dioxide 22 mmol/L (22-29); Chloride 110 mmol/L (96-108); Creatinine Clr Calc Pharmacy 130.9; Estimated Glomerular Filt Rate > 60; Magnesium 1.8 mg/dL (1.6-2.6); Potassium 3.6 mmol/L (3.3-5.1); Sodium 138 mmol/L (135-145); Total Protein 6.5 g/dL (6.5-8.0)
[2025-05-25 11:18] LABS: Troponin-I High Sensitivity < 2.7 ng/L (<3.5-17.0)
[2025-05-25 11:41] LABS: Resp Syncy Virus RNA Qual PCR NEGATIVE (Negative); SARS COV2 PCR INHOUSE NEGATIVE (Negative)
[2025-05-25 12:07] VITALS: BP 107/69; PULSE 80; RESP 18; TEMP 36.4; O2SAT 100
[2025-05-25 12:33] LABS: D Dimer High Sensitivity 198 NG/ML
[2025-05-25 12:45] LABS: NT Pro B Type Natriuretic Pept 52.0 pg/mL (<300)
--- NOTE | 2025-05-25 12:59 | PC.NURSE ---
seen and discharged by [facility]
== END 2025-05-25 13:00 | disposition home or self-care (01) ==
PROVIDERS: Physician Assistant Medical; Emergency Provider Emergency Medicine; PCP Physician Assistant
DX: O26.892 Other specified pregnancy related conditions, second trimester (principal); Z3A.20 20 weeks gestation of pregnancy; R07.89 Other chest pain; Z03.818 Encounter for observation for suspected exposure to other biological agents ruled out; R09.89 Other specified symptoms and signs involving the circulatory and respiratory systems
CPT/HCPCS: 36415; 71046; 80053; 83735; 83880; 84484; 85025; 85379; 87637; 93005; 99283

== ENCOUNTER → 2025-05-25 09:46 | Outpatient (BNV) | payer MEDICAID, SELFPAY | PROVIDERS: Emergency Provider Emergency Medicine; PCP Physician Assistant; Visit Provider Internal Medicine Cardiovascular Disease | DX: R07.9 Chest pain, unspecified (principal) | CPT/HCPCS: 93010 ==

== ENCOUNTER → 2025-05-25 10:28 | Outpatient (BNV) | payer MEDICAID, SELFPAY | PROVIDERS: PCP Physician Assistant; Visit Provider Radiology Diagnostic Radiology | DX: R07.9 Chest pain, unspecified (principal) | CPT/HCPCS: 71046 ==